=== PATIENT | female | born 1975 | race Caucasian/White ===

== ENCOUNTER 2020-08-13 18:08 | Emergency (ER) | payer MEDICAID, SELFPAY ==
[2020-08-13 18:12] VITALS: BP 95/61; PULSE 86; RESP 16; TEMP 36.5; O2SAT 98; BMI 28.3
--- NOTE | 2020-08-13 18:37 | XR_ITS ---
EXAMINATION: XR LUMBAR SPINE XR HIP, RIGHT CLINICAL INFORMATION: Back and hip pain status post fall. COMPARISON: CT abdomen and pelvis 04/22/2019. TECHNIQUE: 3 views lumbar spine, single view pelvis with 2 additional views right hip. FINDINGS: LUMBAR SPINE: Some mild spondylitic changes are present with some endplate osteophytes most marked at the superior endplate of L5. There is mild disc space narrowing at L4-L5. No acute fractures are seen. PELVIS AND RIGHT HIP: Degenerative changes are present in both hips with supra-acetabular sclerosis and some mild osteophyte formation. No fractures are seen. Appearances were identical at the time of the prior CT scan in 2019. XR/XR lumbar spine 2-3V IMPRESSION: No evidence of a traumatic injury. Mild degenerative changes as described above.
--- NOTE | 2020-08-13 18:37 | XR_ITS ---
EXAMINATION: XR LUMBAR SPINE XR HIP, RIGHT CLINICAL INFORMATION: Back and hip pain status post fall. COMPARISON: CT abdomen and pelvis 04/22/2019. TECHNIQUE: 3 views lumbar spine, single view pelvis with 2 additional views right hip. FINDINGS: LUMBAR SPINE: Some mild spondylitic changes are present with some endplate osteophytes most marked at the superior endplate of L5. There is mild disc space narrowing at L4-L5. No acute fractures are seen. PELVIS AND RIGHT HIP: Degenerative changes are present in both hips with supra-acetabular sclerosis and some mild osteophyte formation. No fractures are seen. Appearances were identical at the time of the prior CT scan in 2019. XR/XR hip RT w PEL1V IMPRESSION: No evidence of a traumatic injury. Mild degenerative changes as described above.
--- NOTE | 2020-08-13 18:52 | ED.FALL ---
HPI - Fall General Chief Complaint: Fall Stated Complaint: FALL Time Seen by Provider: 08/13/20 18:37 Source: patient Mode of arrival: ambulatory Limitations: no limitations History of Present Illness HPI Narrative: 45 y/o female presenting with right hip pain and low back pain s/p fall 1 week ago. It has been worsening. She has been using heat but not taking any medications because she allergic to tylenol and motrin. She reports tripping over her bunny and falling backward onto her buttock and right hip. She has had pain since with difficulty ambulating. No reports the pain radiates down to her feet that started today. She has episodes of tingling when the pain is severe. She denies weakness and incontinence. MD complaint: fall Onset (ago): week(s) (1) Fall from: standing Fall witnessed: no Place fall occurred: home Loss of consciousness: none Prolonged down time: no Symptoms prior to fall: none Context: tripped/slipped Location of injury: back and pelvis Location of injury - extremities: right: thigh Severity: moderate Severity scale (1-10): 7 Quality: aching and spasming Associated symptoms (after fall): denies Related Data Previous Rx's Medication Instructions Recorded cyclobenzaprine 10 mg PO TID PRN #10 tab 08/13/20 lidocaine [Lidoderm] 1 patch TOPICAL DAILY #15 ea 08/13/20 oxycodone 5 mg PO Q8H PRN #6 tab 08/13/20 Allergies Allergy/AdvReac Type Severity Reaction Status Date / Time varenicline [From CHANTIX] Allergy Intermediate HIVES Unverified 05/16/20 16:01 aspirin [ASPIRIN] Allergy Unknown UNKNOWN Unverified 05/16/20 16:01 acetaminophen [From Tylenol] Allergy Hives Verified 08/13/20 18:40 gabapentin Allergy Hives Verified 08/13/20 18:40 Review of Systems Review of Systems: Constitutional: No Fever, No Chills Cardiovascular: No Chest Pain, No SOB Respiratory: No Cough, No Sputum Gastrointestinal: No Nausea, No Vomiting, No Diarrhea, No abdominal Pain, Genitourinary: No Dysuria, No Urinary Frequency, No Hematuria Musculoskeletal: + joint pain, + Myalgias Skin: No Skin Lesions, No rash Neuro: No Weakness, No Numbness, No Dizziness, No Headache Psych: No Anxiety/Panic, No Depression Heme/Lymph: No Bruising, No Lymphadenopathy Endocrine: No Polyuria, No Polydipsia [facility] Past Medical History Attestation statement: The following information was validated with the patient. Medical History Anxiety Depression Social History Social History Advance Directives: No Advance Directives Information Provided: Yes Physical Exam Vital Signs: Vital Signs: Last Vital Signs Temp 97.7 F 08/13/20 18:12 Pulse 86 08/13/20 18:12 Resp 16 08/13/20 18:12 BP 95/61 08/13/20 18:12 Pulse Ox 98 08/13/20 18:12 Body Mass Index 28.3 Appearance: Alert. Oriented X3. No acute distress. HEENT: normal inspection CVS: Normal heart rate and rhythm. Pulses normal. Respiratory: No respiratory distress. Skin: Skin warm and dry. Normal skin color. Normal skin turgor. No rashes. Back: no ecchymosis, tenderness of SI joint on the right and soft tissues of low lumbar area, no spinal tenderness Extremities: right lateral hip with tenderness superiorly, no deformity, able to ambulate with limp Neuro: Oriented X 3. No motor deficit. No sensory deficit. Course Course Course Narrative: 45 y/o female presenting with hip and back pain 1 week after a fall. Neurologically intact with tender lateral hip and SI joint. Able to ambulate with limp, steady gait. Will get XR to r/u fracture. Reevaluation(s) Reevaluation #1: XR showed no acute traumatic injuries. Will treat for muscular injury/contusion and have her follow up with PCP. Stable for d/c. Patient agrees with plan. MDM - Fall Differential Diagnosis Differential diagnosis: Likely fracture and compression fracture Critical Care Time Critical Care Time Critical Care Time: No Discharge Plan Discharge Clinical Impression: Contusion Qualifiers: Encounter type: initial encounter Contusion area: hip Laterality: right Qualified Code(s): S70.01XA - Contusion of right hip, initial encounter Patient Disposition: Home, Self-Care Instructions: Hip Contusion (ED) Additional Instructions: Your x-rays today showed no acute injuries. It is likely that your pain is muscular in nature. Use heat several times per day. Take the prescribed medications as needed for pain. Follow up with your doctor this week. You may benefit from Physical Therapy. If you develop new weakness, numbness, tinging or urinary incontinence come back to the ER for further evaluation. Prescriptions: New cyclobenzaprine 10 mg tablet 10 mg PO TID PRN (Reason: muscle spasm) Qty: 10 RF: 0 lidocaine [Lidoderm] 5 % adhesive patch,medicated 1 patch topical DAILY Qty: 15 RF: 0 oxycodone 5 mg tablet 5 mg PO Q8H PRN (Reason: pain) Qty: 6 RF: 0 Stand Alone Forms: Work/School Release
[2020-08-13] MEDS: oxyCODONE HCl Immed Release 5 MG TABLET PO (19:46)
== END 2020-08-13 20:49 | disposition home or self-care (01) ==
PROVIDERS: Emergency Provider Internal Medicine
DX: S70.01XA Contusion of right hip, initial encounter (principal); M25.551 Pain in right hip; W01.10XA Fall on same level from slipping, tripping and stumbling with subsequent striking against unspecified object, initial encounter; Y93.9 Activity, unspecified; Y92.009 Unspecified place in unspecified non-institutional (private) residence as the place of occurrence of the external cause; Y99.9 Unspecified external cause status; Z79.899 Other long term (current) drug therapy
CPT/HCPCS: 72100; 73502; 99283

== ENCOUNTER 2021-02-01 17:43 | Emergency (ER) | payer MEDICAID, SELFPAY ==
--- NOTE | ~2021-02-01 | XR_ITS ---
EXAMINATION: XR HIP, LEFT , AP pelvis CLINICAL INFORMATION: Pain COMPARISON: July 2020 TECHNIQUE: Frontal and lateral views of the hip acquired. , AP pelvis FINDINGS: There is no evidence of acute fracture or dislocation. There are mild degenerative arthritic changes of the hip evident by sclerotic changes of the acetabular roof and narrowing of the joint space. Mild degenerative changes of the symphysis pubis. Mild degenerative changes of the SI joints. Adjacent pubic rami are intact. Surrounding soft tissues are unremarkable. XR/XR hip LT min 2V IMPRESSION: Mild degenerative osteoarthritis. No fracture. .
[2021-02-01 18:09] VITALS: BP 134/78; PULSE 107; RESP 20; O2SAT 97; BMI 31.1
[2021-02-01 18:29] LABS: MANUAL DIFF FLAG NO
[2021-02-01 18:32] LABS: Basophils Percent Auto 0.3 % (0-2); Eosinophils Percent Auto 0.3 % (0-4); Hematocrit 48.3 % (37-47); Hemoglobin 15.5 g/dl (12.0-16.0); Imm Gran Abs Auto 0.02 X10*3/uL (0.00-0.03); Imm Gran Pct Auto 0.2 % (0.0-0.4); Lymphocytes Absolute Auto 2.4 X10*3/uL (1.2-4.9); Lymphocytes Percent Auto 20.3 % (20-40); Mean Corpuscular HGB Conc 32.1 g/dl (31.0-35.0); Mean Corpuscular Volume 93.4 fL (80-98); Mean Platelet Volume 11.4 fL (9.4-12.3); Monocytes Absolute Auto 0.3 X10*3/uL (0.1-1.2); Monocytes Percent Auto 2.5 % (2-11); Neutrophils Percent Auto 76.4 % (45-73); Platelet Count 192 X10*3/uL (160-400); Red Blood Count 5.17 X10*6/uL (4.20-5.50); Red Cell Distribution Width 12.9 % (11.0-16.0); White Blood Count 11.8 X10*3/uL (4.8-10.8)
[2021-02-01 18:52] LABS: Anion Gap 15 (12-20); Blood Urea Nitrogen 14 mg/dL (9-16); Calcium 9.3 mg/dL (8.4-10.2); Carbon Dioxide 19 mmol/L (22-29); Chloride 111 mmol/L (96-108); Creatinine Clr Calc Pharmacy 91.7; Estimated Glomerular Filt Rate > 60; Glucose Random 107 mg/dL (60-115); Potassium 4.5 mmol/L (3.3-5.1); Sodium 140 mmol/L (135-145)
== END 2021-02-01 21:27 | disposition left against medical advice (07) ==
PROVIDERS: Emergency Provider Emergency Medicine
DX: M25.552 Pain in left hip (principal); R53.1 Weakness
CPT/HCPCS: 36415; 73502; 80048; 85025; 99282

== ENCOUNTER 2021-05-24 12:47 | Emergency (ER) | payer MEDICAID, SELFPAY ==
[2021-05-24 12:50] VITALS: BP 126/67; PULSE 95; RESP 20; TEMP 36.8; O2SAT 97; BMI 25.7
--- NOTE | 2021-05-24 17:08 | ED_ITS ---
HPI - Abdominal Pain General Chief Complaint: Abdominal Pain Stated Complaint: ABD PAIN Time Seen by Provider: 05/24/21 17:08 Source: patient Mode of arrival: ambulatory Limitations: no limitations History of Present Illness HPI narrative: Patient no significant past medical history just returned from [place] complaining of nausea vomiting and lower abdominal pain mostly on the left side for last few hours Related Data Previous Rx's Medication Instructions Recorded cyclobenzaprine 10 mg tablet 10 mg PO TID PRN #10 tab 08/13/20 lidocaine 5 % topical patch 1 patch TOPICAL DAILY #15 ea 08/13/20 (Lidoderm) oxycodone 5 mg tablet 5 mg PO Q8H PRN #6 tab 08/13/20 Allergies Allergy/AdvReac Type Severity Reaction Status Date / Time acetaminophen [From Tylenol] Allergy Intermediate Hives Verified 05/24/21 12:50 aspirin [ASPIRIN] Allergy Intermediate UNKNOWN Verified 05/24/21 12:50 gabapentin Allergy Intermediate Hives Verified 05/24/21 12:50 varenicline [From CHANTIX] Allergy Intermediate HIVES Verified 05/24/21 12:50 lurasidone [From Latuda] Allergy Unknown Verified 05/24/21 12:50 Physical Exam Vital Signs: Vital Signs: Last Vital Signs Temp 98.3 F 05/24/21 12:50 Pulse 95 05/24/21 12:50 Resp 20 05/24/21 12:50 BP 126/67 05/24/21 12:50 Pulse Ox 97 05/24/21 12:50 Body Mass Index 25.7 Discharge Plan Discharge Prescriptions: No Action cyclobenzaprine 10 mg tablet 10 mg PO TID PRN (Reason: muscle spasm) Qty: 10 RF: 0 lidocaine [Lidoderm] 5 % adhesive patch,medicated 1 patch topical DAILY Qty: 15 RF: 0 oxycodone 5 mg tablet 5 mg PO Q8H PRN (Reason: pain) Qty: 6 RF: 0 PMFSH Past Medical History Medical History Anxiety Depression Surgical History (Updated 05/24/21 @ 12:52 by Ninoska Caballero RN) H/O: hysterectomy Social History Social History Advance Directives: No Advance Directives Information Provided: Yes Patient : No
== END 2021-05-24 18:12 | disposition left against medical advice (07) ==
PROVIDERS: Emergency Provider Emergency Medicine
DX: R10.9 Unspecified abdominal pain (principal)
CPT/HCPCS: 99281; 99282

== ENCOUNTER 2021-06-23 12:51 | Emergency (ER) | payer MEDICAID, SELFPAY ==
--- NOTE | ~2021-06-23 | CT_ITS ---
EXAMINATION: CT HEAD WITHOUT CONTRAST CLINICAL INFORMATION: Left upper and lower extremity weakness. Double vision. COMPARISON: None TECHNIQUE: Contiguous axial imaging was performed from the skull base to vertex without intravenous administration of contrast. This CT examination was performed using dose optimization techniques as appropriate, variously including the following: *Automated exposure control *Adjustment of mA and/or kV according to patient size (this includes techniques or standardized protocols for targeted exams where dose is matched to indication/reason for exam; i.e. extremities or head) *Use of iterative reconstruction technique DLP: 603 mGy-cm FINDINGS: There is no evidence of acute intracranial hemorrhage or territorial infarction. No abnormal mass effect or midline shift is seen. Vasquez to white matter differentiation is well preserved. No extra-axial fluid collections are identified. The ventricles are normal in size. There is no abnormal attenuation within the brain parenchyma. The osseous structures and soft tissues are normal. The mastoid air cells and visualized portions of the paranasal sinuses are well aerated. CT/CT head/brain wo con IMPRESSION: Unremarkable exam.
--- NOTE | ~2021-06-23 | XR_ITS ---
EXAMINATION: XR CHEST CLINICAL INFORMATION: Chest pain COMPARISON: Chest radiographs 09/11/2017, 01/08/2012 TECHNIQUE: 2 views of the chest were obtained. FINDINGS: The lungs are clear. There is no pneumothorax, airspace consolidation, pleural reaction, or effusion. The heart is normal in size. The hilar and mediastinal contours are normal. The costophrenic sulci are clear. Bony structures are unremarkable. XR/XR chest 2V IMPRESSION: Unremarkable examination.
--- NOTE | 2021-06-23 12:57 | ECG_ITS ---
Test Reason : cp Blood Pressure : / mmHG Vent. Rate : 063 BPM Atrial Rate : 063 BPM P-R Int : 128 ms QRS Dur : 076 ms QT Int : 400 ms P-R-T Axes : 041 040 062 degrees QTc Int : 409 ms Normal sinus rhythm Normal ECG No previous ECGs available Referred By: Generic ED Physician Electronically Signed By:JENN HUNT MD
[2021-06-23 13:27] VITALS: BP 101/46; PULSE 62; RESP 18; TEMP 36.1; O2SAT 99; BMI 23.8
[2021-06-23 16:14] VITALS: BP 106/64; PULSE 57
[2021-06-23 16:16] VITALS: BP 98/65; PULSE 68
--- NOTE | 2021-06-23 16:29 | ED.CHESTPAIN ---
HPI - Chest Pain General Chief Complaint: Chest Pain Stated Complaint: chest pain hands numbness Time Seen by Provider: 06/23/21 15:51 Source: patient Mode of arrival: ambulatory History of Present Illness HPI narrative: 45-year-old female with a past medical history anxiety, depression, presenting to the ED complaining of chest pain and left arm/hand numbness/weakness since 3:00 a.m. Admits chest pain has resolved however decreased mobility to left hand is persistent, was seen PCP ABSTRACTOR and sent to ED for evaluation and concern of CVA. Patient also reports blurry vision and feeling off balance. Denies headache, lightheadedness, CP at present, SOB, abdominal pain, nausea/vomiting. Does not take anticoagulation. Denies ETOH/drug use MD complaint: chest pain Related Data Home Medications Medication Instructions Recorded Confirmed acetaminophen 160 mg chewable 640 mg PO Q4H PRN 06/23/21 06/23/21 tablet aripiprazole 20 mg tablet 20 mg PO DAILY 06/23/21 06/23/21 clonazepam 1 mg tablet 1 mg PO BID PRN 06/23/21 06/23/21 dextroamphetamine-amphetamine 30 30 mg PO DAILY 06/23/21 06/23/21 mg tablet diphenhydramine HCl 12.5 mg 25 mg PO TID PRN 06/23/21 06/23/21 chewable tablet lisdexamfetamine 60 mg capsule 60 mg PO DAILY 06/23/21 06/23/21 (Vyvanse) topiramate 200 mg tablet 200 mg PO BEDTIME 06/23/21 06/23/21 venlafaxine 75 mg capsule,extended 75 cap PO BEDTIME 06/23/21 06/23/21 release 24 hr Allergies Allergy/AdvReac Type Severity Reaction Status Date / Time acetaminophen [From Tylenol] Allergy Intermediate Hives Verified 05/24/21 12:50 aspirin [ASPIRIN] Allergy Intermediate UNKNOWN Verified 05/24/21 12:50 gabapentin Allergy Intermediate Hives Verified 05/24/21 12:50 varenicline [From CHANTIX] Allergy Intermediate HIVES Verified 05/24/21 12:50 lurasidone [From Latuda] Allergy Unknown Verified 05/24/21 12:50 Review of Systems Review of Systems: Constitutional: No Fever, No Chills, No Fatigue, No Malaise ENT/Mouth: No Ear Pain, No Nasal Congestion, No sore throat, No Swallowing Difficulty Eyes: No Eye Pain, No Swelling, No Redness, No Discharge, + Vision Changes Cardiovascular: + Chest Pain (resolved), No SOB, No Palpitations Respiratory: No Cough, No Dyspnea Gastrointestinal: No Nausea, No Vomiting, No Diarrhea, No Constipation, No Abdominal pain Genitourinary: No Dysuria, No Urinary Frequency, No Hematuria,No Flank Pain Musculoskeletal: No joint pain, No Myalgias, No Joint Swelling Skin: No Skin Lesions, No rash Neuro: + Weakness, + Numbness, + Paresthesias, No Loss of Consciousness, + feeling off balance, No Headache Yes all other systems are reviewed and are negative Neurologic: Denies Sensory deficit (Neuro) [facility] Past Medical History Attestation statement: The following information was validated with the patient. Medical History (Updated 06/23/21 @ 17:35 by CALOS Hunt) Anxiety Depression Surgical History (Updated 05/24/21 @ 12:52 by Ninoska Caballero RN) H/O: hysterectomy Social History Social History Advance Directives: No Advance Directives Information Provided: Yes Physical Exam Vital Signs: Vital Signs: Last Vital Signs Temp 97 F 06/23/21 13:27 Pulse 68 06/23/21 16:16 Resp 18 06/23/21 13:27 BP 98/65 06/23/21 16:16 Pulse Ox 99 06/23/21 13:27 Body Mass Index 23.8 Const: General: cooperative, healthy appearing and no acute distress Orientation/consciousness: patient oriented x3 Limitations: no limitations HENMT: Head: Yes normal to inspection and Yes atraumatic Ears: hearing grossly normal bilaterally General nose exam: Normal external nose present Face and sinus: Yes normal facial exam Eyes: General: appearance normal, both eyes and all related structures Pupils: Equal, round and reactive pupils present EOM: EOMs intact bilaterally Neck: Neck: Yes normal visual inspection, Yes no lymphadenopathy and Yes no meningeal signs Resp: Effort & Inspection: normal respiratory effort Auscultation: clear to auscultation bilaterally, no crackles, no rales, no rhonchi and no wheezes Cardio: Rate: regular rate Heart sounds: S1 normal heart sound present and S2 normal heart sound present GI: Inspection: Yes normal to inspection Palpation (GI): Soft to palpation, nontender, no guarding and not rigid Skin: Rashes: no rashes Wounds: no wounds Neuro: Other: Slight decreased strength to LLE Left wrist & hand with decreased strength, decreased flexion and extension. Sensation intact to light touch. Distal pulses intact Strength intact to forearm/elbow and arm on left side General: patient oriented x3, gait normal and no meningeal signs Cranial nerves: Yes Equal, round and reactive pupils present Gait exam (Neuro): Normal gait present Sensory Exam: No Sensory deficit (Neuro) Coordination: [id number] test normal Romberg Test: Negative Extrem: General: Yes normal to inspection Course Course Course Narrative: -1730-- UA negative XR chest 2V IMPRESSION: Unremarkable examination. CT head/brain wo con IMPRESSION: Unremarkable exam. -results discussed with patient, recommended admission for MRI tomorrow. Patient refusing admission for further workup secondary to anxiety, discussed risks of leaving, including permanent disability, paralysis, and . patient is A&Ox3, competent to make her own decisions and will sign out AMA., will follow up with PCP for MRI -1800--labs drawn however patient would like to leave AMA prior to results MDM - Chest Pain MDM Narrative Medical decision making narrative: 45-year-old female with a past medical history anxiety, depression, presenting to the ED complaining of chest pain and left arm/hand numbness/weakness since 3:00 a.m. on exam vital signs stable, NAD/nontoxic appearing, physical exam as above with noted left hand/wrist weakness, and mild LLE weakness. Ambulating with steady gait. Concern for CVA vs compressive neuropathy. Lower concern for SAH/ICH. Rule out metabolic etiology and ACS Plan: EKG, labs, CXR head CT Medical Records Data Attestation: I reviewed the patient's medical records. Lab Data Attestation: I reviewed the patient's lab results. Result diagrams: 06/23/21 16:26 06/23/21 16:26 Labs: Lab Results 06/23/21 06/23/21 06/23/21 Range/Units 16:17 16:17 16:19 WBC (4.8-10.8) X10*3/uL RBC (4.20-5.50) X10*6/uL Hgb (12.0-16.0) g/dl Hct (37-47) % MCV (80-98) fL MCH (27.0-33.0) pg MCHC (31.0-35.0) g/dl RDW (11.0-16.0) % Plt Count (160-400) X10*3/uL MPV (9.4-12.3) fL Immature Gran % (Auto) (0.0-0.4) % Neut % (Auto) (45-73) % Lymph % (Auto) (20-40) % [place] % (Auto) (2-11) % Eos % (Auto) (0-4) % Baso % (Auto) (0-2) % Lymph # (Auto) (1.2-4.9) X10*3/uL [place] # (Auto) (0.1-1.2) X10*3/uL Eos # (Auto) (0.0-0.4) X10*3/uL Baso # (Auto) (0.0-0.2) X10*3/uL Abs Immat Gran (auto) (0.00-0.03) X10*3/uL Absolute Neuts (auto) (2.0-8.3) X10*3/uL Absolute Nucleated RBC (0.0-0.012) X10*3/uL Nucleated RBC % (auto) (0.0-0.2) /100WBC Urine Color YELLOW Urine Appearance CLEAR Urine pH 6.5 (5.0-8.0) Ur Specific [place] <= 1.005 (1.005-1.025) Urine Protein NEG (NEG-TRACE) MG/DL Urine Glucose (UA) NEG (NEG) MG/DL Urine Ketones NEG (NEG) MG/DL Urine Blood NEG (NEG) Urine Nitrite NEG (NEG) Ur Leukocyte Esterase NEG (NEG) Urine Test NEGATIVE (NEGATIVE) COVID-19 ([facility]) Negative (Negative) COVID-19 Clin Com See Note 06/23/21 Range/Units 16:26 WBC 7.3 (4.8-10.8) X10*3/uL RBC 4.63 (4.20-5.50) X10*6/uL Hgb 13.6 (12.0-16.0) g/dl Hct 42.8 (37-47) % MCV 92.4 (80-98) fL MCH 29.4 (27.0-33.0) pg MCHC 31.8 (31.0-35.0) g/dl RDW 12.8 (11.0-16.0) % Plt Count 205 (160-400) X10*3/uL MPV 11.1 (9.4-12.3) fL Immature Gran % (Auto) 0.3 (0.0-0.4) % Neut % (Auto) 54.6 (45-73) % Lymph % (Auto) 38.1 (20-40) % [place] % (Auto) 4.4 (2-11) % Eos % (Auto) 2.2 (0-4) % Baso % (Auto) 0.4 (0-2) % Lymph # (Auto) 2.8 (1.2-4.9) X10*3/uL [place] # (Auto) 0.3 (0.1-1.2) X10*3/uL Eos # (Auto) 0.2 (0.0-0.4) X10*3/uL Baso # (Auto) 0.0 (0.0-0.2) X10*3/uL Abs Immat Gran (auto) 0.02 (0.00-0.03) X10*3/uL Absolute Neuts (auto) 4.0 (2.0-8.3) X10*3/uL Absolute Nucleated RBC 0.000 (0.0-0.012) X10*3/uL Nucleated RBC % (auto) 0.0 (0.0-0.2) /100WBC Urine Color Urine Appearance Urine pH (5.0-8.0) Ur Specific [place] (1.005-1.025) Urine Protein (NEG-TRACE) MG/DL Urine Glucose (UA) (NEG) MG/DL Urine Ketones (NEG) MG/DL Urine Blood (NEG) Urine Nitrite (NEG) Ur Leukocyte Esterase (NEG) Urine Test (NEGATIVE) COVID-19 ([facility]) (Negative) COVID-19 Clin Com Discharge Plan Discharge Clinical Impression: Left hand weakness, Chest pain Patient Disposition: Left Against Medical Advice Instructions: Chest Pain (ED), Stroke (DC) Additional Instructions: It is possible you had a stroke. It is also possible you could be having issues with her heart You are signing out against medical advice meaning or taking the risk of , paralysis, and permanent disability upon leaving today You are always welcome to return to the emergency department It is also possible your having a compressive neuropathy It is very important that you follow-up with her primary care doctor as soon as possible You need an MRI to determine whether you definitely had a stroke or not If you develop worsening symptoms, new symptoms, weakness, numbness, shortness breath, or chest pain return to the ED immediately Prescriptions: No Action venlafaxine 75 mg capsule,extended release 24hr 75 cap PO BEDTIME RF: 0 clonazepam 1 mg tablet 1 mg PO BID PRN (Reason: Anxiety) RF: 0 dextroamphetamine-amphetamine 30 mg tablet 30 mg PO DAILY RF: 0 topiramate 200 mg tablet 200 mg PO BEDTIME RF: 0 aripiprazole 20 mg tablet 20 mg PO DAILY RF: 0 Vyvanse 60 mg capsule 60 mg PO DAILY RF: 0 acetaminophen [Acetaminophen Jr] 160 mg Tablet,Chewable 640 mg PO Q4H PRN (Reason: Pain) RF: 0 diphenhydramine HCl 12.5 mg Tablet,Chewable 25 mg PO TID PRN (Reason: Itching) RF: 0 Referrals: Physician,Unknown J [Primary Care Provider] - 1 day
[2021-06-23 16:33] LABS: Appearance Urine CLEAR; Color Urine YELLOW; Glucose Urine UA NEG (NEG); Leukocyte Esterase Urine NEG (NEG); Nitrite Urine NEG (NEG); PH 6.5 (5.0-8.0); Specific Gravity - Urine <= 1.005 (1.005-1.025); Urine Blood NEG (NEG); Urine Ketones NEG (NEG); Urine Protein NEG (NEG-TRACE)
[2021-06-23 16:35] LABS: UPreg QC Valid YES; Urine Pregnancy NEGATIVE (NEGATIVE)
[2021-06-23 16:48] LABS: COVID-19 Test Negative (Negative); IDNOW Serial# 9DD0AD1C
--- NOTE | 2021-06-23 16:56 | PHA.MEDREC ---
Pharmacy Consult ? Medication Reconciliation Pharmacy has completed the medication reconciliation. Patient reports she stop taking prazosin because they worsen her nightmares at night. Patient's family reports that patient can only have Children's Tylenol and Children's Benadryl (the chewable tablets) because the regular ones upset her stomach. She reports that she has been getting itchy after eating most foods. Yas Berger, PharmD
--- NOTE | 2021-06-23 17:00 | PC.NURSE ---
Unsuccessful PIV attempt by this RN, unsuccessful butterfly stick attempt x 2 per Nathan EDT. Phlebotomy requested to attempt
[2021-06-23 17:52] LABS: MANUAL DIFF FLAG NO
[2021-06-23 17:54] LABS: Basophils Percent Auto 0.4 % (0-2); Eosinophils Absolute Auto 0.2 X10*3/uL (0.0-0.4); Eosinophils Percent Auto 2.2 % (0-4); Hematocrit 42.8 % (37-47); Hemoglobin 13.6 g/dl (12.0-16.0); Imm Gran Abs Auto 0.02 X10*3/uL (0.00-0.03); Imm Gran Pct Auto 0.3 % (0.0-0.4); Lymphocytes Absolute Auto 2.8 X10*3/uL (1.2-4.9); Lymphocytes Percent Auto 38.1 % (20-40); Mean Corpuscular HGB Conc 31.8 g/dl (31.0-35.0); Mean Corpuscular Hemoglobin 29.4 pg (27.0-33.0); Mean Corpuscular Volume 92.4 fL (80-98); Mean Platelet Volume 11.1 fL (9.4-12.3); Monocytes Absolute Auto 0.3 X10*3/uL (0.1-1.2); Monocytes Percent Auto 4.4 % (2-11); Neutrophils Percent Auto 54.6 % (45-73); Platelet Count 205 X10*3/uL (160-400); Red Blood Count 4.63 X10*6/uL (4.20-5.50); Red Cell Distribution Width 12.8 % (11.0-16.0); White Blood Count 7.3 X10*3/uL (4.8-10.8)
--- NOTE | 2021-06-23 18:09 | PC.NURSE ---
Pt discharged against medical advice, able to verbalize understanding of risks associated w/ leaving, also declining to wait for lab results. Return precautions reviewed, reiterated that pt should not hesitate to return if condition changes or worsens. PIV removed, pt ambulatory w/ steady gait out of dept and in NAD at time of dc
[2021-06-23 18:18] LABS: Troponin-I High Sensitivity < 3.5 ng/L (<3.5-17.0)
[2021-06-23 18:26] LABS: Alanine Aminotransferase 10 U/L (0-31); Albumin Level 3.9 g/dL (3.5-5.0); Alkaline Phosphatase 71 U/L (39-117); Anion Gap 9 (12-20); Aspartate Amino Transferase 12 U/L (5-31); Bilirubin Direct < 0.2 mg/dL (0.0-0.5); Bilirubin Total 0.2 mg/dL (0.0-1.0); Blood Urea Nitrogen 11 mg/dL (9-16); Calcium 8.9 mg/dL (8.4-10.2); Carbon Dioxide 27 mmol/L (22-29); Chloride 107 mmol/L (96-108); Creatinine Clr Calc Pharmacy 80.6; Estimated Glomerular Filt Rate > 60; Glucose Random 109 mg/dL (60-115); Potassium 3.9 mmol/L (3.3-5.1); Sodium 139 mmol/L (135-145); Total Protein 6.1 g/dL (6.5-8.0)
== END 2021-06-23 18:20 | disposition left against medical advice (07) ==
PROVIDERS: Physician Assistant; Emergency Provider Internal Medicine
DX: R07.9 Chest pain, unspecified (principal); R53.1 Weakness; F41.9 Anxiety disorder, unspecified; F32.9 Major depressive disorder, single episode, unspecified; Z79.899 Other long term (current) drug therapy; Z20.822 Contact with and (suspected) exposure to COVID-19
CPT/HCPCS: 36415; 70450; 71046; 80048; 80076; 81003; 81025; 83735; 84484; 85025; 87635; 93005; 99283; 99284

== ENCOUNTER 2022-08-26 12:55 | Emergency (ER) | payer MEDICAID, SELFPAY ==
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
[2022-08-26 13:15] VITALS: BP 114/67; PULSE 85; RESP 16; TEMP 36.6; O2SAT 96; BMI 25.7
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
== END 2022-08-26 15:27 | disposition home or self-care (01) ==
PROVIDERS: Emergency Provider Student in an Organized Health Care Education/Training Program
DX: S70.02XA Contusion of left hip, initial encounter (principal); M62.838 Other muscle spasm; M25.562 Pain in left knee; Y29.XXXA Contact with blunt object, undetermined intent, initial encounter; Y93.9 Activity, unspecified; Y92.9 Unspecified place or not applicable; Y99.9 Unspecified external cause status
CPT/HCPCS: 73502; 73564; 99282; 99283

== ENCOUNTER 2022-10-01 17:44 | Emergency (ER) | payer MEDICAID, SELFPAY ==
--- NOTE | ~2022-10-01 | CT_ITS ---
EXAMINATION: CT HIP WITHOUT CONTRAST, LEFT CLINICAL INFORMATION: Evaluate for fracture, fall, pain. COMPARISON: Radiograph of the left hip 08/26/2022. TECHNIQUE: Multidetector volumetric imaging was performed of the left hip without IV contrast. Sagittal and coronal reformatted images were obtained. This CT examination was performed using dose optimization techniques as appropriate, variously including the following: *Automated exposure control *Adjustment of mA and/or kV according to patient size (this includes techniques or standardized protocols for targeted exams where dose is matched to indication/reason for exam; i.e. extremities or head) *Use of iterative reconstruction technique DLP: 228 mGy-cm FINDINGS: No evidence of acute fractures or subluxation. Mild to moderate superolateral joint space narrowing of the left hip with associated subcortical sclerosis and marginal osteophytes, suggesting degenerative osteoarthritis. No evidence of erosions. No chondrocalcinosis. No aggressive appearing osseous lesions. No significant soft tissue abnormality. Mild colonic diverticulosis without pericolonic inflammatory changes. CT/CT hip LT wo IV con IMPRESSION: 1. No acute fractures or malalignment. 2. 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
[2022-10-01 17:53] VITALS: BP 111/76; BP 116/63; PULSE 62; PULSE 81; RESP 16; TEMP 36.9; O2SAT 97; O2SAT 98; BMI 25.0
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
--- NOTE | 2022-10-01 18:25 | MHC.EDTECH ---
I pct conducted a bladder scan on patient but was unable to print outcome do to printer on bladder scanner not working
[2022-10-01] MEDS: Morphine Sulfate 2 MG/ML CARTRIDGE IM (21:13)
[2022-10-01 21:15] VITALS: BP 98/62; PULSE 70; RESP 16; O2SAT 96
== END 2022-10-01 21:19 | disposition home or self-care (01) ==
PROVIDERS: Emergency Provider Emergency Medicine
DX: S70.02XA Contusion of left hip, initial encounter (principal); W06.XXXA Fall from bed, initial encounter; Y93.84 Activity, sleeping; Y92.032 Bedroom in apartment as the place of occurrence of the external cause; Y99.9 Unspecified external cause status
CPT/HCPCS: 51798; 73700; 96372; 99284; J2270

== ENCOUNTER 2022-10-25 21:47 | Emergency (ER) | payer MEDICAID, SELFPAY ==
--- NOTE | ~2022-10-25 | CT_ITS ---
EXAMINATION: CT ABDOMEN AND PELVIS WITHOUT CONTRAST CLINICAL INFORMATION: Left flank pain COMPARISON: 04/22/2019 TECHNIQUE: Multidetector volumetric imaging was performed from the superior aspect of the liver through the pubic symphysis. Sagittal and coronal reformatted images were obtained on the technologist's workstation. This CT examination was performed using dose optimization techniques as appropriate, variously including the following: *Automated exposure control *Adjustment of mA and/or kV according to patient size (this includes techniques or standardized protocols for targeted exams where dose is matched to indication/reason for exam; i.e. extremities or head) *Use of iterative reconstruction technique DLP: 589 mGy-cm FINDINGS: LUNG BASES: The visualized lung bases are unremarkable. LIVER, GALLBLADDER, AND BILIARY TREE: The liver is normal in size, shape, and attenuation. No focal hepatic lesion or biliary ductal dilatation is present. Gallbladder appears relatively contracted. PANCREAS: Unremarkable. SPLEEN: Borderline enlarged. ADRENAL GLANDS: Unremarkable. KIDNEYS AND URETERS: The kidneys are normal in size, shape, and attenuation. No hydronephrosis, hydroureter, or calculi seen. No perinephric stranding. BLADDER: Unremarkable. GASTROINTESTINAL TRACT: No evidence of bowel obstruction or significant wall thickening. The appendix is unremarkable. No free fluid or free air is seen. ABDOMINAL WALL: No significant hernia is appreciated. LYMPH NODES: Normal. VASCULAR: Scattered atherosclerotic calcifications. PELVIC VISCERA: Patient is status post hysterectomy. OSSEOUS STRUCTURES: Degenerative disc disease at L4-L5. CT/CT abdomen pelvis wo IV con IMPRESSION: No acute findings identified in the abdomen/pelvis. Borderline splenomegaly.
[2022-10-25 21:52] VITALS: BP 118/44; BP 162/90; PULSE 111; PULSE 88; RESP 22; TEMP 36.9; O2SAT 96; O2SAT 98; BMI 28.3
[2022-10-25 22:24] LABS: MANUAL DIFF FLAG NO
[2022-10-25 22:26] LABS: Basophils Absolute Auto 0.1 X10*3/uL (0.0-0.2); Basophils Percent Auto 0.4 % (0-2); Eosinophils Absolute Auto 0.2 X10*3/uL (0.0-0.4); Eosinophils Percent Auto 1.3 % (0-4); Hemoglobin 15.2 g/dl (12.0-16.0); Imm Gran Abs Auto 0.09 X10*3/uL (0.00-0.03); Imm Gran Pct Auto 0.6 % (0.0-0.4); Lymphocytes Absolute Auto 3.9 X10*3/uL (1.2-4.9); Lymphocytes Percent Auto 25.4 % (20-40); Mean Corpuscular HGB Conc 33.8 g/dl (31.0-35.0); Mean Corpuscular Hemoglobin 29.9 pg (27.0-33.0); Mean Corpuscular Volume 88.4 fL (80.0-98.0); Mean Platelet Volume 10.9 fL (9.4-12.3); Monocytes Absolute Auto 0.9 X10*3/uL (0.1-1.2); Monocytes Percent Auto 5.7 % (2-11); Neutrophils Absolute Auto 10.3 x10*3/uL (2.0-8.3); Neutrophils Percent Auto 66.6 % (45-73); Platelet Count 272 X10*3/uL (160-400); Red Blood Count 5.09 X10*6/uL (4.20-5.50); Red Cell Distribution Width 12.7 % (11.0-16.0); White Blood Count 15.5 X10*3/uL (4.8-10.8)
[2022-10-25] MEDS: 0.9 % Sodium Chloride 1,000 ML 999 ML IV (22:49)
[2022-10-25 22:57] LABS: Appearance Urine Turbid; Color Urine Dark Yellow; Glucose Urine UA Negative (Negative); Leukocyte Esterase Urine Large (3+) (Negative); Nitrite Urine Negative (Negative); PH 6.5 (5.0-9.0); Specific Gravity - Urine >= 1.030 (1.005-1.025); UMIC TRIGGER UACC YES; Urine Blood Small (1+) (Negative); Urine Ketones Negative (Negative); Urine Protein 100 (2+) mg/dL (Neg-Trace)
--- NOTE | 2022-10-25 23:01 | PC.NURSE ---
pt resting on stretcher, tearful and agitated. Pt was able to provide urine sample and IV was established in right wrist. Awaiting CT imaging at this time
[2022-10-25 23:02] VITALS: PULSE 99; RESP 20; O2SAT 94
[2022-10-25 23:02] LABS: Bacteria Urine 4+ (None Seen); Hyaline Casts Urine 0-2 /LPF (0-2); RBC Urine >20 /HPF (0-2); Squamous Epithelial Cell Urine >20 /HPF (0-2); UACC Culture Trigger YES; WBC Urine >50 /HPF (0-5)
--- NOTE | 2022-10-25 23:03 | ED_ITS ---
HPI - General Adult General Chief complaint: General Medical Stated complaint: Lower Back Pain Radiates to Flank Time Seen by Provider: 10/25/22 22:15 Source: patient Mode of arrival: EMS History of Present Illness HPI narrative: 47-year-old female without significant past medical history but does have a history of renal colic presents with transient left flank pain yesterday and then this evening had acute onset of left flank pain that radiates into the front with episodes of nausea and vomiting as well as chills. She denies any fevers and denies any urinary pain/burning/frequency. Related Data Home Medications Medication Instructions Recorded Confirmed acetaminophen 160 mg chewable 640 mg PO Q4H PRN Pain 06/23/21 06/23/21 tablet aripiprazole 20 mg tablet 20 mg PO DAILY 06/23/21 06/23/21 clonazepam 1 mg tablet 1 mg PO BID PRN Anxiety 06/23/21 06/23/21 dextroamphetamine-amphetamine 30 30 mg PO DAILY 06/23/21 06/23/21 mg tablet diphenhydramine HCl 12.5 mg 25 mg PO TID PRN Itching 06/23/21 06/23/21 chewable tablet lisdexamfetamine 60 mg capsule 60 mg PO DAILY 06/23/21 06/23/21 (Vyvanse) topiramate 200 mg tablet 200 mg PO BEDTIME 06/23/21 06/23/21 venlafaxine 75 mg capsule,extended 75 cap PO BEDTIME 06/23/21 06/23/21 release 24 hr Previous Rx's Medication Instructions Recorded cyclobenzaprine 5 mg tablet 5 mg PO TID PRN muscle spasm 7 08/26/22 days #21 tabs tramadol 50 mg tablet 50 mg PO BID PRN pain #6 tabs 10/01/22 cefixime 400 mg capsule 400 mg PO DAILY 7 days #7 caps 10/26/22 Allergies Allergy/AdvReac Type Severity Reaction Status Date / Time acetaminophen [From Tylenol] Allergy Intermediate Hives Verified 08/26/22 13:19 aspirin [ASPIRIN] Allergy Intermediate UNKNOWN Verified 08/26/22 13:19 gabapentin Allergy Intermediate Hives Verified 08/26/22 13:19 varenicline [From CHANTIX] Allergy Intermediate HIVES Verified 08/26/22 13:19 ibuprofen Allergy Anaphylaxis Verified 10/01/22 17:58 lurasidone [From Latuda] Allergy Unknown Verified 08/26/22 13:19 Review of Systems Review of Systems: Pertinent positives and negatives as stated in [facility] Past Medical History Source: nursing notes reviewed Medical History Anxiety Depression Surgical History H/O: hysterectomy Social History Social History Advance Directives: No Advance Directives Information Provided: Yes Patient : No Physical Exam ED Vital Signs: Vital Signs - 24 hr 10/25/22 21:52 10/25/22 23:02 10/25/22 23:17 Temperature 98.4 F Pulse Rate 111 H 99 95 Respiratory Rate 22 H 20 13 Blood Pressure 118/44 L 113/63 Pulse Oximetry 96 94 93 Oxygen Delivery Method Room Air Room Air Room Air 10/25/22 23:25 Temperature 98.2 F Pulse Rate 107 H Respiratory Rate 18 Blood Pressure 113/63 Pulse Oximetry 98 Oxygen Delivery Method Room Air BMI result Body Mass Index 28.3 VITAL SIGNS: Reviewed. GENERAL: Well developed, well nourished, in moderate distress. HEAD: Normocephalic/atraumatic EYES: PERRLA, EOMI LUNGS: Normal breath sounds. No adventitious sounds or accessory muscle use. SpO2<96> CARDIOVASCULAR: Regular rate and rhythm without noted murmurs ABDOMEN: Soft, left flank pain, non-distended with bowel sounds. MUSCULOSKELETAL: No tenderness, deformities, or effusions noted on gross inspection. EXTREMITIES: No cyanosis, clubbing or edema. SKIN: Inspection of the skin reveals no rashes NEUROLOGIC: Alert and oriented x 4. Strength and sensation to light touch were grossly intact x 4. Medications Administered Discontinued Medications Generic Name Dose Route Start Last Admin Trade Name Freq PRN Reason Stop Dose Admin Diphenhydramine HCl 25 mg 10/25/22 23:38 10/25/22 23:55 Diphenhydramine Hcl 25 Mg Capsule PO 10/25/22 23:39 25 mg ONCE ONE Administration Fentanyl 25 mcg 10/25/22 23:01 10/25/22 23:11 Fentanyl Citrate/Pf 100 Mcg/2 Ml Vial IVPUSH 10/25/22 23:02 25 mcg ONCE ONE Administration Protocol Sodium Chloride 1,000 mls @ 999 mls/hr 10/25/22 22:45 10/25/22 23:59 Ns IV 10/25/22 23:45 Infused .Q1H1M ROSEANN Infusion Ondansetron HCl 4 mg 10/25/22 23:02 10/25/22 23:11 Ondansetron Hcl 4 Mg/2 Ml Vial IVPUSH 10/25/22 23:03 4 mg ONCE ONE Administration Medical Decision Making Medical Decision Making MDM Narrative: 47-year-old female with history and clinical presentation of pyelonephritis, renal colic, but lower clinical suspicion for diverticulitis or SBO. On review of all investigations my interpretation is that patient has an acute episode of pyelonephritis. She will receive initial antibiotics here and on re-evaluation she is feeling much better after having received the IV fluids/antiemetics/pain medications as well as antibiotics. She is otherwise discharged home on remaining course of antibiotics. Differential Diagnosis Differential Diagnoses: The differential diagnosis associated with the presentation includes Please see the discussion above Lab Data [facility] Lab Attestation statement: I reviewed the patient's lab results. Please see the discussion above 10/25/22 22:21 10/25/22 22:21 Labs: Lab Results 10/25/22 10/25/22 10/25/22 Range/Units 22:21 22:21 22:51 WBC 15.5 H (4.8-10.8) X10*3/uL RBC 5.09 (4.20-5.50) X10*6/uL Hgb 15.2 (12.0-16.0) g/dl Hct 45.0 (37.0-47.0) % MCV 88.4 (80.0-98.0) fL MCH 29.9 (27.0-33.0) pg MCHC 33.8 (31.0-35.0) g/dl RDW 12.7 (11.0-16.0) % Plt Count 272 (160-400) X10*3/uL MPV 10.9 (9.4-12.3) fL Immature Gran % (Auto) 0.6 H (0.0-0.4) % Neut % (Auto) 66.6 (45-73) % Lymph % (Auto) 25.4 (20-40) % Garfield % (Auto) 5.7 (2-11) % Eos % (Auto) 1.3 (0-4) % Baso % (Auto) 0.4 (0-2) % Lymph # (Auto) 3.9 (1.2-4.9) X10*3/uL Garfield # (Auto) 0.9 (0.1-1.2) X10*3/uL Eos # (Auto) 0.2 (0.0-0.4) X10*3/uL Baso # (Auto) 0.1 (0.0-0.2) X10*3/uL Abs Immat Gran (auto) 0.09 H (0.00-0.03) X10*3/uL Absolute Neuts (auto) 10.3 H (2.0-8.3) x10*3/uL Absolute Nucleated RBC 0.000 (0.0-0.012) X10*3/uL Nucleated RBC % (auto) 0.0 (0.0-0.2) /100WBC Sodium 142 (135-145) mmol/L Potassium 4.8 D (3.3-5.1) mmol/L Chloride 100 (96-108) mmol/L Carbon Dioxide 30 H (22-29) mmol/L Anion Gap 17 (12-20) BUN 22 H (9-16) mg/dL Creatinine 0.80 (0.5-1.4) mg/dL Estim Creat Clear Calc 91.1 Estimated GFR > 60 Random Glucose 122 H (60-115) mg/dL Calcium 9.9 D (8.4-10.2) mg/dL Total Bilirubin 0.6 (0.0-1.0) mg/dL Direct Bilirubin < 0.2 (0.0-0.5) mg/dL AST 22 (5-31) U/L ALT 22 (0-31) U/L Alkaline Phosphatase 76 (39-117) U/L Total Protein 7.2 (6.5-8.0) g/dL Albumin 4.4 (3.5-5.0) g/dL Beta HCG, Quant < 2 mIU/mL Urine Color Dark Yellow Urine Appearance Turbid Urine pH 6.5 (5.0-9.0) Ur Specific Bentley >= 1.030 H (1.005-1.025) Urine Protein 100 (2+) H (Neg-Trace) mg/dL Urine Glucose (UA) Negative (Negative) mg/dL Urine Ketones Negative (Negative) mg/dL Urine Blood Small (1+) H (Negative) Urine Nitrite Negative (Negative) Ur Leukocyte Esterase Large (3+) H (Negative) Urine RBC >20 H (0-2) /HPF Urine WBC >50 H (0-5) /HPF Ur Squamous Epith Cells >20 (0-2) /HPF Urine Bacteria 4+ (None Seen) Hyaline Casts 0-2 (0-2) /LPF Radiology Impression Radiologist Impression: My interpretation is in agreement with radiology's impression of the imaging study. External Record Review External record reviewed: Outpatient record Critical Care Time Critical Care Time Critical Care Time: Yes Total Critical Care Time: 30 Attestation: I personally attest to this time spent taking care of the patient. Discharge Plan Discharge Clinical Impression: Pyelonephritis Patient Disposition: Home, Self-Care Instructions: Kidney Infection (ED) Additional Instructions: 1. Please resume all home medications as prescribed. 2. Recommend heating pad to your left flank and completion of entire course of antibiotics as ordered. 3. Increase fluid intake, I have provided a prescription for antinausea medication to help you with this. 4. Follow-up with your primary care provider in the next 2-3 days. Return to the ER for any worsening symptoms. Prescriptions: New cefixime 400 mg capsule 400 mg PO DAILY 7 Days Qty: 7 0RF No Action venlafaxine 75 mg capsule,extended release 24hr 75 cap PO BEDTIME clonazepam 1 mg tablet 1 mg PO BID PRN (Reason: Anxiety) dextroamphetamine-amphetamine 30 mg tablet 30 mg PO DAILY topiramate 200 mg tablet 200 mg PO BEDTIME aripiprazole 20 mg tablet 20 mg PO DAILY Vyvanse 60 mg capsule 60 mg PO DAILY acetaminophen [Acetaminophen Jr] 160 mg Tablet,Chewable 640 mg PO Q4H PRN (Reason: Pain) diphenhydramine HCl 12.5 mg Tablet,Chewable 25 mg PO TID PRN (Reason: Itching) cyclobenzaprine 5 mg tablet 5 mg PO TID PRN (Reason: muscle spasm) 7 Days Qty: 21 0RF tramadol 50 mg tablet 50 mg PO BID PRN (Reason: pain) Qty: 6 0RF
[2022-10-25] MEDS: fentaNYL citrate/PF 100 MCG/2 ML VIAL 25 MCG IVPUSH (23:11)
[2022-10-25] MEDS: ondansetron HCL 4 MG/2 ML VIAL IVPUSH (23:11)
[2022-10-25 23:13] LABS: Alanine Aminotransferase 22 U/L (0-31); Albumin Level 4.4 g/dL (3.5-5.0); Alkaline Phosphatase 76 U/L (39-117); Anion Gap 17 (12-20); Aspartate Amino Transferase 22 U/L (5-31); Bilirubin Direct < 0.2 mg/dL (0.0-0.5); Bilirubin Total 0.6 mg/dL (0.0-1.0); Blood Urea Nitrogen 22 mg/dL (9-16); Calcium 9.9 mg/dL (8.4-10.2); Carbon Dioxide 30 mmol/L (22-29); Chloride 100 mmol/L (96-108); Creatinine Clr Calc Pharmacy 91.1; Estimated Glomerular Filt Rate > 60; Glucose Random 122 mg/dL (60-115); HCG Quantitative < 2 mIU/mL; Potassium 4.8 mmol/L (3.3-5.1); Sodium 142 mmol/L (135-145); Total Protein 7.2 g/dL (6.5-8.0)
[2022-10-25 23:17] VITALS: BP 113/63; PULSE 95; RESP 13; O2SAT 93
[2022-10-25 23:25] VITALS: BP 113/63; PULSE 107; RESP 18; TEMP 36.8; O2SAT 98
[2022-10-25] MEDS: diphenhydrAMINE HCL 25 MG CAPSULE PO (23:55)
--- NOTE | 2022-10-26 00:05 | PC.NURSE ---
Late entry: pt itching quite a bit, MD Cabral aware, Benadryl ordered and administered per MAR
[2022-10-26] MEDS: Amoxicillin/Potassium Clav 875 MG TABLET PO (00:30)
== END 2022-10-26 00:35 | disposition home or self-care (01) ==
PROVIDERS: Emergency Provider Student in an Organized Health Care Education/Training Program
DX: N12 Tubulo-interstitial nephritis, not specified as acute or chronic (principal); M54.50 Low back pain, unspecified; Z79.899 Other long term (current) drug therapy
CPT/HCPCS: 36415; 74176; 80053; 81001; 82248; 84702; 85025; 87086; 96361; 96374; 96375; 99284; J2405; J3010

== ENCOUNTER 2022-10-26 14:31 | Emergency (ER) | payer MEDICAID, SELFPAY ==
[2022-10-26 14:39] VITALS: BP 114/84; BP 141/91; PULSE 82; PULSE 93; RESP 20; TEMP 36.8; O2SAT 95; O2SAT 99; BMI 28.3
[2022-10-26] MEDS: diphenhydrAMINE HCL 50 MG/ML VIAL IM (15:24)
[2022-10-26] MEDS: Metoclopramide HCl 10 MG/2 ML VIAL 5 MG IM (15:25)
[2022-10-26] MEDS: methylPREDNISolone Sod Succ 125 MG/2 ML VIAL 60 MG IM (15:29)
[2022-10-26 15:59] LABS: MANUAL DIFF FLAG NO
[2022-10-26 16:01] LABS: Basophils Absolute Auto 0.1 X10*3/uL (0.0-0.2); Basophils Percent Auto 0.4 % (0-2); Eosinophils Absolute Auto 0.3 X10*3/uL (0.0-0.4); Eosinophils Percent Auto 2.2 % (0-4); Hemoglobin 13.8 g/dl (12.0-16.0); Imm Gran Abs Auto 0.07 X10*3/uL (0.00-0.03); Imm Gran Pct Auto 0.6 % (0.0-0.4); Lymphocytes Absolute Auto 3.4 X10*3/uL (1.2-4.9); Lymphocytes Percent Auto 29.7 % (20-40); Mean Corpuscular HGB Conc 32.9 g/dl (31.0-35.0); Mean Corpuscular Hemoglobin 29.6 pg (27.0-33.0); Mean Corpuscular Volume 89.9 fL (80.0-98.0); Mean Platelet Volume 10.6 fL (9.4-12.3); Monocytes Absolute Auto 0.6 X10*3/uL (0.1-1.2); Monocytes Percent Auto 5.3 % (2-11); Neutrophils Absolute Auto 7.1 x10*3/uL (2.0-8.3); Neutrophils Percent Auto 61.8 % (45-73); Platelet Count 221 X10*3/uL (160-400); Red Blood Count 4.67 X10*6/uL (4.20-5.50); Red Cell Distribution Width 12.7 % (11.0-16.0); White Blood Count 11.5 X10*3/uL (4.8-10.8)
[2022-10-26 16:09] LABS: Appearance Urine Turbid; Color Urine Dark Yellow; Glucose Urine UA Negative (Negative); Leukocyte Esterase Urine Moderate (2+) (Negative); Nitrite Urine Negative (Negative); PH 5.5 (5.0-9.0); Specific Gravity - Urine >= 1.030 (1.005-1.025); UMIC TRIGGER UACC YES; Urine Blood Negative (Negative); Urine Ketones Trace mg/dL (Negative); Urine Protein 30 (1+) mg/dL (Neg-Trace)
[2022-10-26 16:16] LABS: Alanine Aminotransferase 20 U/L (0-31); Alkaline Phosphatase 77 U/L (39-117); Anion Gap 10 (12-20); Aspartate Amino Transferase 16 U/L (5-31); Bilirubin Total 0.4 mg/dL (0.0-1.0); Blood Urea Nitrogen 19 mg/dL (9-16); Carbon Dioxide 29 mmol/L (22-29); Chloride 104 mmol/L (96-108); Creatinine Clr Calc Pharmacy 94.7; Estimated Glomerular Filt Rate > 60; Glucose Random 104 mg/dL (60-115); Magnesium 1.7 mg/dL (1.6-2.6); Potassium 4.4 mmol/L (3.3-5.1); Sodium 139 mmol/L (135-145); Total Protein 6.5 g/dL (6.5-8.0)
[2022-10-26 16:17] LABS: Amphetamine Screen Urine POSITIVE (Not Detect); Barbiturates, Urine Not Detected (Not Detect); Benzodiazepines Screen Urine Not Detected (Not Detect); Cannabinoid Screen Urine POSITIVE (Not Detect); Cocaine Screen Urine POSITIVE (Not Detect); Fentanyl, urine Not Detected (Not Detect); Opiate Screen Urine POSITIVE (Not Detect); Phencyclidine Screen Urine Not Detected (Not Detect)
[2022-10-26 16:39] LABS: Bacteria Urine Trace (None Seen); Squamous Epithelial Cell Urine >20 /HPF (0-2); UACC Culture Trigger YES; WBC Urine >50 /HPF (0-5)
--- NOTE | 2022-10-26 16:43 | ED.ALLEREA ---
HPI - Allergic Reaction General Chief complaint: Abdominal Pain Stated complaint: abd pain Time Seen by Provider: 10/26/22 14:44 Source: patient, family and EMS Mode of arrival: EMS Limitations: no limitations History of Present Illness HPI narrative: 47yoF with a PMHx of substance abuse who was diagnosed with pyelonephritis yesterday on 10/25/2022 a sent home with Cefixime although the pharmacy called me earlier this morning and reported that this prescription will not be covered by her pharmacy therefore we changed it to cefuroxime although when she took the 1st dose of this antibiotic she immediately started vomiting and her whole body became very itchy. She believes she might be having allergic reaction. She reports that she is allergic to penicillins although this was not in our allergy list therefore I updated at this time and also put cephalosporins in there. Patient reports otherwise her abdominal pain in her left flank pain has improved. She is not having any fevers or chills. She denies any other new substances, diarrhea, abnormal vaginal discharge, chest pain or shortness of breath, paresthesias, rashes or any other symptoms complaints or concerns at this time. MD complaint: allergic reaction Onset (ago): hour(s) (Prior to arrival) Exposure: medication (Cefuroxime) Symptoms: itching, nausea and vomiting Severity: moderate Treatment prior to arrival: benadryl Previous Allergic Reaction History: anaphylaxis Related Data Home Medications Medication Instructions Recorded Confirmed acetaminophen 160 mg chewable 640 mg PO Q4H PRN Pain 06/23/21 06/23/21 tablet aripiprazole 20 mg tablet 20 mg PO DAILY 06/23/21 06/23/21 clonazepam 1 mg tablet 1 mg PO BID PRN Anxiety 06/23/21 06/23/21 dextroamphetamine-amphetamine 30 30 mg PO DAILY 06/23/21 06/23/21 mg tablet diphenhydramine HCl 12.5 mg 25 mg PO TID PRN Itching 06/23/21 06/23/21 chewable tablet lisdexamfetamine 60 mg capsule 60 mg PO DAILY 06/23/21 06/23/21 (Vyvanse) topiramate 200 mg tablet 200 mg PO BEDTIME 06/23/21 06/23/21 venlafaxine 75 mg capsule,extended 75 cap PO BEDTIME 06/23/21 06/23/21 release 24 hr Previous Rx's Medication Instructions Recorded cyclobenzaprine 5 mg tablet 5 mg PO TID PRN muscle spasm 7 08/26/22 days #21 tabs tramadol 50 mg tablet 50 mg PO BID PRN pain #6 tabs 10/01/22 cefixime 400 mg capsule 400 mg PO DAILY 7 days #7 caps 10/26/22 diphenhydramine HCl 25 mg tablet 50 mg PO TID PRN allergic reaction 10/26/22 (Benadryl Allergy) #14 tabs levofloxacin 750 mg tablet 750 mg PO DAILY uti 5 days #5 tabs 10/26/22 metoclopramide HCl 10 mg tablet 10 mg PO Q6H PRN nausea and 10/26/22 (Reglan) vomiting #14 tabs ondansetron 4 mg oral soluble film 4 mg PO Q8H PRN nausea and 10/26/22 vomiting #10 ea prednisone 20 mg tablet 40 mg PO DAILY inflammation 5 days 10/26/22 #10 tabs Allergies Allergy/AdvReac Type Severity Reaction Status Date / Time Penicillins Allergy Severe Anaphylaxis Verified 10/26/22 16:58 acetaminophen [From Tylenol] Allergy Intermediate Hives Verified 08/26/22 13:19 aspirin [ASPIRIN] Allergy Intermediate UNKNOWN Verified 08/26/22 13:19 gabapentin Allergy Intermediate Hives Verified 08/26/22 13:19 varenicline [From CHANTIX] Allergy Intermediate HIVES Verified 08/26/22 13:19 ibuprofen Allergy Anaphylaxis Verified 10/01/22 17:58 lurasidone [From Latuda] Allergy Unknown Verified 08/26/22 13:19 cefuroxime Allergy Mild Itching Uncoded 10/26/22 16:58 Review of Systems Review of Systems: Constitutional : No Fever, No Chills , no body aches, no recent illness Head/Face: No facial swelling, No facial redness ENT/Mouth : No oral/throat swelling, No Hoarseness, No Swallowing Difficulty Eyes: No Eye Pain, No Swelling, No Redness Cardiovascular : No Chest Pain, No SOB, No palpitations Respiratory : No Cough, No Sputum, No Wheezing, No Smoke Exposure, No Dyspnea Gastrointestinal : + Nausea, + Vomiting, No Diarrhea, No abdominal Pain Genitourinary : No Dysuria, No Urinary Frequency, No Hematuria Musculoskeletal : No joint pain, No Myalgias, No Joint Swelling Skin : + pruritus, No Skin Lesions, No rash Neuro : No Weakness, No Numbness, No Headache, No dizziness, No tingling Psych : No Anxiety/Panic, No Depression Heme/Lymph: No Bruising, No Lymphadenopathy Endocrine : No Polyuria, No Polydipsia Denies changes in lotions or detergents. Denies drainage from rash. Denies any recent sick contacts or recent travel. + new medications for pyelonephritis prescribed yesterday and started today Yes all other systems are reviewed and are negative PMFSH Past Medical History Attestation statement: The following information was validated with the patient. Source: old records reviewed, obtained from family and nursing notes reviewed Medical History Anxiety Depression Surgical History H/O: hysterectomy Social History Social History Advance Directives: No Advance Directives Information Provided: No Physical Exam ED Vital Signs: Vital Signs - 24 hr 10/26/22 14:39 Temperature 98.2 F Pulse Rate 82 Respiratory Rate 20 Blood Pressure 141/91 H Pulse Oximetry 95 Oxygen Delivery Method Room Air BMI result Body Mass Index 28.3 Vital signs have been reviewed and blood pressure 141/91. Pulse 82. Respirations 20. Temperature 98.2 degrees. Oxygen saturation 95% on room air. Appearance: Alert. Oriented X3. No acute distress. No angioedema noted. Head: Normal external exam. Normocephalic. Eyes: PERRLA. EOMI. Conjunctiva and sclera normal. Eyelids normal. ENT: Pharynx normal. Uvula midline. Moist mucous membranes. No trismus noted. No drooling noted. No muffled voice noted. Tolerating secretions well. No angioedema noted. Neck: Normal inspection. Neck supple. FROM. No adenopathy. No meningeal signs. CVS: Normal heart rate and rhythm. Heart sound normal. No murmurs noted. Pulses normal throughout. Respiratory: No respiratory distress. Painless inspiration. Breath sounds normal. No wheezes/rales/rhonchi noted. Chest nontender. No accessory muscle usage noted or decreased air movement noted. Abdomen: Soft and mild tenderness to palpation diffusely. Nondistended. No guarding. No rigidity. Bowel sounds normal in all 4 quadrants. No distention noted. No organomegaly noted. No visible injury noted. No rebound tenderness. Negative Rovsing sign. Negative obturator's sign. Negative psoas sign. Negative Bloom sign. Back: + left CVA tenderness. No Right CVAT. Full range of motion noted. Skin: Skin warm and dry. Normal skin color. Normal skin turgor. No rashes/lesions/lacerations noted. Extremities: Extremities exhibit normal range of motion. Extremities nontender. Neuro: Oriented X 3. No motor deficit. No sensory deficit. Reflexes normal. Normal steady gait. CN's II-XII intact bilaterally? Course Course Course Narrative: 15pm - 47yoF with a PMHx of substance abuse who was diagnosed with pyelonephritis yesterday on 10/25/2022 a sent home with Cefixime although the pharmacy called me earlier this morning and reported that this prescription will not be covered by her pharmacy therefore we changed it to cefuroxime although when she took the 1st dose of this antibiotic she immediately started vomiting and her whole body became very itchy. She believes she might be having allergic reaction. She reports that she is allergic to penicillins although this was not in our allergy list therefore I updated at this time and also put cephalosporins in there. Patient reports otherwise her abdominal pain in her left flank pain has improved. She is not having any fevers or chills. I wanted to give the patient IV fluids and admit the patient although patient reports she does not want to be admitted she is refusing she would rather have allergy medication and change her antibiotic can be discharged home. I was able to convince the patient to at least give me some labs. On exam patient is very pruritic and having some nausea although no active vomiting and there is no angioedema or rash noted to the body. Plan: Therefore will obtain basic labs. Provide IM Reglan 5 mg, 50 mg of IM Benadryl and 60 mg of IM Solu-Medrol and re-evaluate Reevaluation(s) Reevaluation #1: Labs return patient with leukocytosis of 11,000 which is improved when compared to yesterday. Anion gap 10. BUN 19. Otherwise all other labs are within normal limits. Patient appears to still have UTI. She did, positive for opioids/amphetamines/cocaine and marijuana. Patient is feeling much better she is able to tolerate p.o. fluids and solids. Therefore at this time will trial Levaquin if patient can tolerate Levaquin and does not have any allergic reaction or nausea vomiting then I will discharge her due to patient requesting to be discharged he does not want to be admitted. Friend at bedside. They understand agree this plan. Time: 17:05 Medications Administered Discontinued Medications Generic Name Dose Route Start Last Admin Trade Name Joseq PRN Reason Stop Dose Admin Diphenhydramine HCl 50 mg 10/26/22 15:02 10/26/22 15:24 Diphenhydramine Hcl 50 Mg/Ml Vial IM 10/26/22 15:03 50 mg ONCE ONE Administration Levofloxacin 500 mg 10/26/22 16:44 10/26/22 17:01 Levofloxacin 500 Mg Tablet PO 10/26/22 16:45 500 mg ONCE ONE Administration Methylprednisolone Sodium Succinate 60 mg 10/26/22 15:02 10/26/22 15:29 Methylprednisolone Sod Succ 125 Mg/2 Ml Vial IM 10/26/22 15:03 60 mg ONCE ONE Administration Metoclopramide HCl 5 mg 10/26/22 15:02 10/26/22 15:25 Metoclopramide Hcl 10 Mg/2 Ml Vial IM 10/26/22 15:03 5 mg ONCE ONE Administration Medical Decision Making Admission/Observation Consideration of admission/observation: Escalation of care including admission/observation considered (I considered admission versus observation although patient refusing) Lab Data MDM Lab Attestation statement: I reviewed the patient's lab results. 10/26/22 15:52 10/26/22 15:52 Labs: Lab Results 10/26/22 10/26/22 10/26/22 Range/Units 15:45 15:45 15:52 WBC 11.5 H (4.8-10.8) X10*3/uL RBC 4.67 (4.20-5.50) X10*6/uL Hgb 13.8 (12.0-16.0) g/dl Hct 42.0 (37.0-47.0) % MCV 89.9 (80.0-98.0) fL MCH 29.6 (27.0-33.0) pg MCHC 32.9 (31.0-35.0) g/dl RDW 12.7 (11.0-16.0) % Plt Count 221 (160-400) X10*3/uL MPV 10.6 (9.4-12.3) fL Immature Gran % (Auto) 0.6 H (0.0-0.4) % Neut % (Auto) 61.8 (45-73) % Lymph % (Auto) 29.7 (20-40) % Amelia % (Auto) 5.3 (2-11) % Eos % (Auto) 2.2 (0-4) % Baso % (Auto) 0.4 (0-2) % Lymph # (Auto) 3.4 (1.2-4.9) X10*3/uL Amelia # (Auto) 0.6 (0.1-1.2) X10*3/uL Eos # (Auto) 0.3 (0.0-0.4) X10*3/uL Baso # (Auto) 0.1 (0.0-0.2) X10*3/uL Abs Immat Gran (auto) 0.07 H (0.00-0.03) X10*3/uL Absolute Neuts (auto) 7.1 (2.0-8.3) x10*3/uL Absolute Nucleated RBC 0.000 (0.0-0.012) X10*3/uL Nucleated RBC % (auto) 0.0 (0.0-0.2) /100WBC Sodium (135-145) mmol/L Potassium (3.3-5.1) mmol/L Chloride (96-108) mmol/L Carbon Dioxide (22-29) mmol/L Anion Gap (12-20) BUN (9-16) mg/dL Creatinine (0.5-1.4) mg/dL Estim Creat Clear Calc Estimated GFR Random Glucose (60-115) mg/dL Calcium (8.4-10.2) mg/dL Magnesium (1.6-2.6) mg/dL Total Bilirubin (0.0-1.0) mg/dL AST (5-31) U/L ALT (0-31) U/L Alkaline Phosphatase (39-117) U/L Total Protein (6.5-8.0) g/dL Albumin (3.5-5.0) g/dL Urine Color Dark Yellow Urine Appearance Turbid Urine pH 5.5 (5.0-9.0) Ur Specific [place] >= 1.030 H (1.005-1.025) Urine Protein 30 (1+) H (Neg-Trace) mg/dL Urine Glucose (UA) Negative (Negative) mg/dL Urine Ketones Trace (Negative) mg/dL Urine Blood Negative (Negative) Urine Nitrite Negative (Negative) Ur Leukocyte Esterase Moderate (2+) H (Negative) Urine RBC 6-10 H (0-2) /HPF Urine WBC >50 H (0-5) /HPF Ur Squamous Epith Cells >20 (0-2) /HPF Urine Bacteria Trace (None Seen) Hyaline Casts 3-5 (0-2) /LPF Urine Opiates Screen POSITIVE H (Not Detect) Urine Fentanyl Screen Not Detected (Not Detect) Ur Barbiturates Screen Not Detected (Not Detect) Ur Phencyclidine Scrn Not Detected (Not Detect) Ur Amphetamines Screen POSITIVE H (Not Detect) U Benzodiazepines Scrn Not Detected (Not Detect) Urine Cocaine Screen POSITIVE H (Not Detect) U Marijuana (THC) Screen POSITIVE H (Not Detect) 10/26/22 Range/Units 15:52 WBC (4.8-10.8) X10*3/uL RBC (4.20-5.50) X10*6/uL Hgb (12.0-16.0) g/dl Hct (37.0-47.0) % MCV (80.0-98.0) fL MCH (27.0-33.0) pg MCHC (31.0-35.0) g/dl RDW (11.0-16.0) % Plt Count (160-400) X10*3/uL MPV (9.4-12.3) fL Immature Gran % (Auto) (0.0-0.4) % Neut % (Auto) (45-73) % Lymph % (Auto) (20-40) % Amelia % (Auto) (2-11) % Eos % (Auto) (0-4) % Baso % (Auto) (0-2) % Lymph # (Auto) (1.2-4.9) X10*3/uL Amelia # (Auto) (0.1-1.2) X10*3/uL Eos # (Auto) (0.0-0.4) X10*3/uL Baso # (Auto) (0.0-0.2) X10*3/uL Abs Immat Gran (auto) (0.00-0.03) X10*3/uL Absolute Neuts (auto) (2.0-8.3) x10*3/uL Absolute Nucleated RBC (0.0-0.012) X10*3/uL Nucleated RBC % (auto) (0.0-0.2) /100WBC Sodium 139 (135-145) mmol/L Potassium 4.4 (3.3-5.1) mmol/L Chloride 104 (96-108) mmol/L Carbon Dioxide 29 (22-29) mmol/L Anion Gap 10 L (12-20) BUN 19 H (9-16) mg/dL Creatinine 0.77 (0.5-1.4) mg/dL Estim Creat Clear Calc 94.7 Estimated GFR > 60 Random Glucose 104 (60-115) mg/dL Calcium 9.0 D (8.4-10.2) mg/dL Magnesium 1.7 (1.6-2.6) mg/dL Total Bilirubin 0.4 (0.0-1.0) mg/dL AST 16 (5-31) U/L ALT 20 (0-31) U/L Alkaline Phosphatase 77 (39-117) U/L Total Protein 6.5 (6.5-8.0) g/dL Albumin 4.0 (3.5-5.0) g/dL Urine Color Urine Appearance Urine pH (5.0-9.0) Ur Specific [place] (1.005-1.025) Urine Protein (Neg-Trace) mg/dL Urine Glucose (UA) (Negative) mg/dL Urine Ketones (Negative) mg/dL Urine Blood (Negative) Urine Nitrite (Negative) Ur Leukocyte Esterase (Negative) Urine RBC (0-2) /HPF Urine WBC (0-5) /HPF Ur Squamous Epith Cells (0-2) /HPF Urine Bacteria (None Seen) Hyaline Casts (0-2) /LPF Urine Opiates Screen (Not Detect) Urine Fentanyl Screen (Not Detect) Ur Barbiturates Screen (Not Detect) Ur Phencyclidine Scrn (Not Detect) Ur Amphetamines Screen (Not Detect) U Benzodiazepines Scrn (Not Detect) Urine Cocaine Screen (Not Detect) U Marijuana (THC) Screen (Not Detect) Independent Historian Clinical information obtained from an independent historian. History obtained from or confirmed by: Friend External Record Review External record reviewed: Inpatient record, Office record, Outpatient record, Prior outpatient labs, Prior outpatient radiology, Primary care record and Outside ED record I reviewed all the patient's prior labs imaging and notes in her system Prescription Management I considered prescription management with: Antibiotic and Other (Antiemetics and allergic medication) Discharge Plan Discharge Clinical Impression: Allergic reaction, Pyelonephritis Patient Disposition: Home, Self-Care Instructions: Kidney Infection (ED), General Allergic Reaction (ED) Prescriptions: New levofloxacin 750 mg tablet 750 mg PO DAILY 5 Days Qty: 5 0RF metoclopramide HCl [Reglan] 10 mg tablet 10 mg PO Q6H PRN (Reason: nausea and vomiting) Qty: 14 0RF diphenhydramine HCl [Benadryl Allergy] 25 mg tablet 50 mg PO TID PRN (Reason: allergic reaction) Qty: 14 0RF prednisone 20 mg tablet 40 mg PO DAILY 5 Days Qty: 10 0RF No Action venlafaxine 75 mg capsule,extended release 24hr 75 cap PO BEDTIME clonazepam 1 mg tablet 1 mg PO BID PRN (Reason: Anxiety) dextroamphetamine-amphetamine 30 mg tablet 30 mg PO DAILY topiramate 200 mg tablet 200 mg PO BEDTIME aripiprazole 20 mg tablet 20 mg PO DAILY Vyvanse 60 mg capsule 60 mg PO DAILY acetaminophen [Acetaminophen Jr] 160 mg Tablet,Chewable 640 mg PO Q4H PRN (Reason: Pain) diphenhydramine HCl 12.5 mg Tablet,Chewable 25 mg PO TID PRN (Reason: Itching) cyclobenzaprine 5 mg tablet 5 mg PO TID PRN (Reason: muscle spasm) 7 Days Qty: 21 0RF tramadol 50 mg tablet 50 mg PO BID PRN (Reason: pain) Qty: 6 0RF cefixime 400 mg capsule 400 mg PO DAILY 7 Days Qty: 7 0RF ondansetron 4 mg film 4 mg PO Q8H PRN (Reason: nausea and vomiting) Qty: 10 0RF Referrals: Physician,Unknown J [Primary Care Provider] - (your pcp as needed)
[2022-10-26] MEDS: levoFLOXacin 500 MG TABLET PO (17:01)
== END 2022-10-26 17:27 | disposition home or self-care (01) ==
PROVIDERS: Physician Assistant Medical; Emergency Provider Emergency Medicine
DX: R11.2 Nausea with vomiting, unspecified (principal); L29.9 Pruritus, unspecified; T36.1X5A Adverse effect of cephalosporins and other beta-lactam antibiotics, initial encounter; Y92.9 Unspecified place or not applicable; N12 Tubulo-interstitial nephritis, not specified as acute or chronic; F19.10 Other psychoactive substance abuse, uncomplicated; Z79.899 Other long term (current) drug therapy
CPT/HCPCS: 36415; 80053; 80307; 81001; 81003; 83735; 85025; 96372; 99282; 99284; J1200; J2765; J2930

== ENCOUNTER 2022-11-02 16:35 | Emergency (ER) | payer MEDICAID, SELFPAY ==
[2022-11-02 17:41] VITALS: BP 147/75; PULSE 99; RESP 20; TEMP 36.8; O2SAT 97; BMI 28.3
--- NOTE | 2022-11-02 17:43 | ED.GENADULT ---
HPI - General Adult General Chief complaint: General Medical Stated complaint: kidney infection?/ cant swallow Related Data Home Medications Medication Instructions Recorded Confirmed acetaminophen 160 mg chewable 640 mg PO Q4H PRN Pain 06/23/21 06/23/21 tablet aripiprazole 20 mg tablet 20 mg PO DAILY 06/23/21 06/23/21 clonazepam 1 mg tablet 1 mg PO BID PRN Anxiety 06/23/21 06/23/21 dextroamphetamine-amphetamine 30 30 mg PO DAILY 06/23/21 06/23/21 mg tablet diphenhydramine HCl 12.5 mg 25 mg PO TID PRN Itching 06/23/21 06/23/21 chewable tablet lisdexamfetamine 60 mg capsule 60 mg PO DAILY 06/23/21 06/23/21 (Vyvanse) topiramate 200 mg tablet 200 mg PO BEDTIME 06/23/21 06/23/21 venlafaxine 75 mg capsule,extended 75 cap PO BEDTIME 06/23/21 06/23/21 release 24 hr Previous Rx's Medication Instructions Recorded cyclobenzaprine 5 mg tablet 5 mg PO TID PRN muscle spasm 7 08/26/22 days #21 tabs tramadol 50 mg tablet 50 mg PO BID PRN pain #6 tabs 10/01/22 cefixime 400 mg capsule 400 mg PO DAILY 7 days #7 caps 10/26/22 diphenhydramine HCl 25 mg tablet 50 mg PO TID PRN allergic reaction 10/26/22 (Benadryl Allergy) #14 tabs levofloxacin 750 mg tablet 750 mg PO DAILY uti 5 days #5 tabs 10/26/22 metoclopramide HCl 10 mg tablet 10 mg PO Q6H PRN nausea and 10/26/22 (Reglan) vomiting #14 tabs ondansetron 4 mg oral soluble film 4 mg PO Q8H PRN nausea and 10/26/22 vomiting #10 ea prednisone 20 mg tablet 40 mg PO DAILY inflammation 5 days 10/26/22 #10 tabs Allergies Allergy/AdvReac Type Severity Reaction Status Date / Time Penicillins Allergy Severe Anaphylaxis Verified 10/26/22 16:58 acetaminophen [From Tylenol] Allergy Intermediate Hives Verified 08/26/22 13:19 aspirin [ASPIRIN] Allergy Intermediate UNKNOWN Verified 08/26/22 13:19 gabapentin Allergy Intermediate Hives Verified 08/26/22 13:19 varenicline [From CHANTIX] Allergy Intermediate HIVES Verified 08/26/22 13:19 ibuprofen Allergy Anaphylaxis Verified 10/01/22 17:58 lurasidone [From Latuda] Allergy Unknown Verified 08/26/22 13:19 cefuroxime Allergy Mild Itching Uncoded 10/26/22 16:58 [facility] Past Medical History Medical History Anxiety Depression Surgical History H/O: hysterectomy Social History Social History Advance Directives: No Advance Directives Information Provided: No Physical Exam ED Vital Signs: Vital Signs - 24 hr 11/02/22 17:41 Temperature 98.2 F Pulse Rate 99 Respiratory Rate 20 Blood Pressure 147/75 H Pulse Oximetry 97 Oxygen Delivery Method Room Air BMI result Body Mass Index 28.3 Course Course Course Narrative: RME - 47 yo female with history of recent pyelonephritis 10/25 s/p treatment with Levaquin presents to the ER for evaluation of new onset hematuria that started today. She also reports full body itching without that started before her pyelo treatment. Was treated for this with Benadryl and Solumedrol when she was here on 10/26 for ?allergic reaction, although no rash. She also reports nausea, vomiting, confusion, trouble swallowing and vision trouble. She states she was outside today and cannot remember why she was outside or how she got there. Plan: UA, basic labs and Utox Discharge Plan Discharge Clinical Impression: Hematuria Patient Disposition: Elopement Prescriptions: No Action levofloxacin 750 mg tablet 750 mg PO DAILY 5 Days Qty: 5 0RF metoclopramide HCl [Reglan] 10 mg tablet 10 mg PO Q6H PRN (Reason: nausea and vomiting) Qty: 14 0RF diphenhydramine HCl [Benadryl Allergy] 25 mg tablet 50 mg PO TID PRN (Reason: allergic reaction) Qty: 14 0RF prednisone 20 mg tablet 40 mg PO DAILY 5 Days Qty: 10 0RF venlafaxine 75 mg capsule,extended release 24hr 75 cap PO BEDTIME clonazepam 1 mg tablet 1 mg PO BID PRN (Reason: Anxiety) dextroamphetamine-amphetamine 30 mg tablet 30 mg PO DAILY topiramate 200 mg tablet 200 mg PO BEDTIME aripiprazole 20 mg tablet 20 mg PO DAILY Vyvanse 60 mg capsule 60 mg PO DAILY acetaminophen [Acetaminophen Jr] 160 mg Tablet,Chewable 640 mg PO Q4H PRN (Reason: Pain) diphenhydramine HCl 12.5 mg Tablet,Chewable 25 mg PO TID PRN (Reason: Itching) cyclobenzaprine 5 mg tablet 5 mg PO TID PRN (Reason: muscle spasm) 7 Days Qty: 21 0RF tramadol 50 mg tablet 50 mg PO BID PRN (Reason: pain) Qty: 6 0RF cefixime 400 mg capsule 400 mg PO DAILY 7 Days Qty: 7 0RF ondansetron 4 mg film 4 mg PO Q8H PRN (Reason: nausea and vomiting) Qty: 10 0RF Discharge Date/Time: 11/02/22 20:30
--- NOTE | 2022-11-02 18:17 | MHC.EDTECH ---
pt was called back to triage to draw labs ,no response .
== END 2022-11-02 20:30 | disposition left against medical advice (07) ==
PROVIDERS: Emergency Provider Emergency Medicine
DX: R31.9 Hematuria, unspecified (principal)
CPT/HCPCS: 99281

== ENCOUNTER 2022-11-06 14:51 | Emergency (ER) | payer MEDICAID, SELFPAY ==
--- NOTE | 2022-11-06 15:07 | ED.GENADULT ---
HPI - General Adult General Chief complaint: Urogenital-Female Stated complaint: kidney infection, body rash, high bp Related Data Home Medications Medication Instructions Recorded Confirmed acetaminophen 160 mg chewable 640 mg PO Q4H PRN Pain 06/23/21 06/23/21 tablet aripiprazole 20 mg tablet 20 mg PO DAILY 06/23/21 06/23/21 clonazepam 1 mg tablet 1 mg PO BID PRN Anxiety 06/23/21 06/23/21 dextroamphetamine-amphetamine 30 30 mg PO DAILY 06/23/21 06/23/21 mg tablet diphenhydramine HCl 12.5 mg 25 mg PO TID PRN Itching 06/23/21 06/23/21 chewable tablet lisdexamfetamine 60 mg capsule 60 mg PO DAILY 06/23/21 06/23/21 (Vyvanse) topiramate 200 mg tablet 200 mg PO BEDTIME 06/23/21 06/23/21 venlafaxine 75 mg capsule,extended 75 cap PO BEDTIME 06/23/21 06/23/21 release 24 hr Previous Rx's Medication Instructions Recorded cyclobenzaprine 5 mg tablet 5 mg PO TID PRN muscle spasm 7 08/26/22 days #21 tabs tramadol 50 mg tablet 50 mg PO BID PRN pain #6 tabs 10/01/22 cefixime 400 mg capsule 400 mg PO DAILY 7 days #7 caps 10/26/22 diphenhydramine HCl 25 mg tablet 50 mg PO TID PRN allergic reaction 10/26/22 (Benadryl Allergy) #14 tabs levofloxacin 750 mg tablet 750 mg PO DAILY uti 5 days #5 tabs 10/26/22 metoclopramide HCl 10 mg tablet 10 mg PO Q6H PRN nausea and 10/26/22 (Reglan) vomiting #14 tabs ondansetron 4 mg oral soluble film 4 mg PO Q8H PRN nausea and 10/26/22 vomiting #10 ea prednisone 20 mg tablet 40 mg PO DAILY inflammation 5 days 10/26/22 #10 tabs Allergies Allergy/AdvReac Type Severity Reaction Status Date / Time Penicillins Allergy Severe Anaphylaxis Verified 11/06/22 15:12 acetaminophen [From Tylenol] Allergy Intermediate Hives Verified 11/06/22 15:12 aspirin [ASPIRIN] Allergy Intermediate UNKNOWN Verified 11/06/22 15:12 gabapentin Allergy Intermediate Hives Verified 11/06/22 15:12 varenicline [From CHANTIX] Allergy Intermediate HIVES Verified 11/06/22 15:12 ibuprofen Allergy Anaphylaxis Verified 11/06/22 15:12 lurasidone [From Latuda] Allergy Unknown Verified 11/06/22 15:12 cefuroxime Allergy Mild Itching Uncoded 10/26/22 16:58 PMFSH Past Medical History Medical History Anxiety Depression Surgical History H/O: hysterectomy Social History Social History Advance Directives: No Advance Directives Information Provided: No Physical Exam ED Vital Signs: BMI result Body Mass Index 28.3 Course Course Course Narrative: BILL - 47 yo F with a history of recent pyelonephritis 10/25 s/p treatment with levaquin who presents to the ER with complaints of ongoing hematuria since 11/02. Eloped on 11/02 without treatment. Finished 5 day course of abx. +vomiting, unable to keep water down. +chills, no fever. Left lower back pain. Seen by PCP told her she still had a UTI but was sent home without abx. Also has rash in lower extremities. Plan: Repeat labs, UA. Medical Decision Making Lab Data 11/06/22 17:04 11/06/22 17:04 Labs: Lab Results 11/06/22 11/06/22 11/06/22 Range/Units 17:04 17:04 17:04 WBC 10.1 (4.8-10.8) X10*3/uL RBC 4.92 (4.20-5.50) X10*6/uL Hgb 14.4 (12.0-16.0) g/dl Hct 43.5 (37.0-47.0) % MCV 88.4 (80.0-98.0) fL MCH 29.3 (27.0-33.0) pg MCHC 33.1 (31.0-35.0) g/dl RDW 12.6 (11.0-16.0) % Plt Count 200 (160-400) X10*3/uL MPV 10.9 (9.4-12.3) fL Immature Gran % (Auto) 0.3 (0.0-0.4) % Neut % (Auto) 64.4 (45-73) % Lymph % (Auto) 26.7 (20-40) % [place] % (Auto) 6.4 (2-11) % Eos % (Auto) 1.8 (0-4) % Baso % (Auto) 0.4 (0-2) % Lymph # (Auto) 2.7 (1.2-4.9) X10*3/uL [place] # (Auto) 0.7 (0.1-1.2) X10*3/uL Eos # (Auto) 0.2 (0.0-0.4) X10*3/uL Baso # (Auto) 0.0 (0.0-0.2) X10*3/uL Abs Immat Gran (auto) 0.03 (0.00-0.03) X10*3/uL Absolute Neuts (auto) 6.5 (2.0-8.3) x10*3/uL Absolute Nucleated RBC 0.000 (0.0-0.012) X10*3/uL Nucleated RBC % (auto) 0.0 (0.0-0.2) /100WBC Sodium Cancelled Potassium Cancelled Chloride Cancelled Carbon Dioxide Cancelled Anion Gap Cancelled BUN Cancelled Creatinine Cancelled Estim Creat Clear Calc Cancelled Estimated GFR Cancelled Random Glucose Cancelled Calcium Cancelled Magnesium Cancelled Total Bilirubin Cancelled Direct Bilirubin Cancelled AST Cancelled ALT Cancelled Alkaline Phosphatase Cancelled Total Protein Cancelled Albumin Cancelled Urine Color Yellow Urine Appearance Cloudy Urine pH 7.0 (5.0-9.0) Ur Specific [place] 1.020 (1.005-1.025) Urine Protein Negative (Neg-Trace) mg/dL Urine Glucose (UA) Negative (Negative) mg/dL Urine Ketones Negative (Negative) mg/dL Urine Blood Negative (Negative) Urine Nitrite Negative (Negative) Ur Leukocyte Esterase Large (3+) H (Negative) Urine RBC 0-2 (0-2) /HPF Urine WBC 21-50 H (0-5) /HPF Ur Squamous Epith Cells 6-10 (0-2) /HPF Urine Bacteria None Seen (None Seen) Hyaline Casts 0-2 (0-2) /LPF Urine Opiates Screen (Not Detect) Urine Fentanyl Screen (Not Detect) Ur Barbiturates Screen (Not Detect) Ur Phencyclidine Scrn (Not Detect) Ur Amphetamines Screen (Not Detect) U Benzodiazepines Scrn (Not Detect) Urine Cocaine Screen (Not Detect) U Marijuana (THC) Screen (Not Detect) Ethyl Alcohol Cancelled 11/06/22 Range/Units 17:05 WBC (4.8-10.8) X10*3/uL RBC (4.20-5.50) X10*6/uL Hgb (12.0-16.0) g/dl Hct (37.0-47.0) % MCV (80.0-98.0) fL MCH (27.0-33.0) pg MCHC (31.0-35.0) g/dl RDW (11.0-16.0) % Plt Count (160-400) X10*3/uL MPV (9.4-12.3) fL Immature Gran % (Auto) (0.0-0.4) % Neut % (Auto) (45-73) % Lymph % (Auto) (20-40) % [place] % (Auto) (2-11) % Eos % (Auto) (0-4) % Baso % (Auto) (0-2) % Lymph # (Auto) (1.2-4.9) X10*3/uL [place] # (Auto) (0.1-1.2) X10*3/uL Eos # (Auto) (0.0-0.4) X10*3/uL Baso # (Auto) (0.0-0.2) X10*3/uL Abs Immat Gran (auto) (0.00-0.03) X10*3/uL Absolute Neuts (auto) (2.0-8.3) x10*3/uL Absolute Nucleated RBC (0.0-0.012) X10*3/uL Nucleated RBC % (auto) (0.0-0.2) /100WBC Sodium Potassium Chloride Carbon Dioxide Anion Gap BUN Creatinine Estim Creat Clear Calc Estimated GFR Random Glucose Calcium Magnesium Total Bilirubin Direct Bilirubin AST ALT Alkaline Phosphatase Total Protein Albumin Urine Color Urine Appearance Urine pH (5.0-9.0) Ur Specific [place] (1.005-1.025) Urine Protein (Neg-Trace) mg/dL Urine Glucose (UA) (Negative) mg/dL Urine Ketones (Negative) mg/dL Urine Blood (Negative) Urine Nitrite (Negative) Ur Leukocyte Esterase (Negative) Urine RBC (0-2) /HPF Urine WBC (0-5) /HPF Ur Squamous Epith Cells (0-2) /HPF Urine Bacteria (None Seen) Hyaline Casts (0-2) /LPF Urine Opiates Screen POSITIVE H (Not Detect) Urine Fentanyl Screen Not Detected (Not Detect) Ur Barbiturates Screen Not Detected (Not Detect) Ur Phencyclidine Scrn Not Detected (Not Detect) Ur Amphetamines Screen Not Detected (Not Detect) U Benzodiazepines Scrn Not Detected (Not Detect) Urine Cocaine Screen POSITIVE H (Not Detect) U Marijuana (THC) Screen POSITIVE H (Not Detect) Ethyl Alcohol Discharge Plan Discharge Clinical Impression: Hematuria Patient Disposition: Elopement Prescriptions: No Action levofloxacin 750 mg tablet 750 mg PO DAILY 5 Days Qty: 5 0RF metoclopramide HCl [Reglan] 10 mg tablet 10 mg PO Q6H PRN (Reason: nausea and vomiting) Qty: 14 0RF diphenhydramine HCl [Benadryl Allergy] 25 mg tablet 50 mg PO TID PRN (Reason: allergic reaction) Qty: 14 0RF prednisone 20 mg tablet 40 mg PO DAILY 5 Days Qty: 10 0RF venlafaxine 75 mg capsule,extended release 24hr 75 cap PO BEDTIME clonazepam 1 mg tablet 1 mg PO BID PRN (Reason: Anxiety) dextroamphetamine-amphetamine 30 mg tablet 30 mg PO DAILY topiramate 200 mg tablet 200 mg PO BEDTIME aripiprazole 20 mg tablet 20 mg PO DAILY Vyvanse 60 mg capsule 60 mg PO DAILY acetaminophen [Acetaminophen Jr] 160 mg Tablet,Chewable 640 mg PO Q4H PRN (Reason: Pain) diphenhydramine HCl 12.5 mg Tablet,Chewable 25 mg PO TID PRN (Reason: Itching) cyclobenzaprine 5 mg tablet 5 mg PO TID PRN (Reason: muscle spasm) 7 Days Qty: 21 0RF tramadol 50 mg tablet 50 mg PO BID PRN (Reason: pain) Qty: 6 0RF cefixime 400 mg capsule 400 mg PO DAILY 7 Days Qty: 7 0RF ondansetron 4 mg film 4 mg PO Q8H PRN (Reason: nausea and vomiting) Qty: 10 0RF Interventions: ED Discharge Assessment Last Done: 11/06/22 21:17 Discharge Date/Time: 11/06/22 21:18
[2022-11-06 15:08] VITALS: BP 129/74; PULSE 93; RESP 16; TEMP 36.6; O2SAT 98; BMI 28.3
--- NOTE | 2022-11-06 17:07 | MHC.EDTECH ---
pt was called back to triage to collect urine sample and draw labs .
[2022-11-06 17:08] LABS: MANUAL DIFF FLAG NO
[2022-11-06 17:11] LABS: Appearance Urine Cloudy; Basophils Percent Auto 0.4 % (0-2); Color Urine Yellow; Eosinophils Absolute Auto 0.2 X10*3/uL (0.0-0.4); Eosinophils Percent Auto 1.8 % (0-4); Glucose Urine UA Negative (Negative); Hematocrit 43.5 % (37.0-47.0); Hemoglobin 14.4 g/dl (12.0-16.0); Imm Gran Abs Auto 0.03 X10*3/uL (0.00-0.03); Imm Gran Pct Auto 0.3 % (0.0-0.4); Leukocyte Esterase Urine Large (3+) (Negative); Lymphocytes Absolute Auto 2.7 X10*3/uL (1.2-4.9); Lymphocytes Percent Auto 26.7 % (20-40); Mean Corpuscular HGB Conc 33.1 g/dl (31.0-35.0); Mean Corpuscular Hemoglobin 29.3 pg (27.0-33.0); Mean Corpuscular Volume 88.4 fL (80.0-98.0); Mean Platelet Volume 10.9 fL (9.4-12.3); Monocytes Absolute Auto 0.7 X10*3/uL (0.1-1.2); Monocytes Percent Auto 6.4 % (2-11); Neutrophils Absolute Auto 6.5 x10*3/uL (2.0-8.3); Neutrophils Percent Auto 64.4 % (45-73); Nitrite Urine Negative (Negative); Platelet Count 200 X10*3/uL (160-400); Red Blood Count 4.92 X10*6/uL (4.20-5.50); Red Cell Distribution Width 12.6 % (11.0-16.0); UMIC TRIGGER UACC YES; Urine Blood Negative (Negative); Urine Ketones Negative (Negative); Urine Protein Negative (Neg-Trace); White Blood Count 10.1 X10*3/uL (4.8-10.8)
[2022-11-06 17:13] LABS: Bacteria Urine None Seen (None Seen); Hyaline Casts Urine 0-2 /LPF (0-2); RBC Urine 0-2 /HPF (0-2); UACC Culture Trigger YES; WBC Urine 21-50 /HPF (0-5)
[2022-11-06 17:26] LABS: Amphetamine Screen Urine Not Detected (Not Detect); Barbiturates, Urine Not Detected (Not Detect); Benzodiazepines Screen Urine Not Detected (Not Detect); Cannabinoid Screen Urine POSITIVE (Not Detect); Cocaine Screen Urine POSITIVE (Not Detect); Fentanyl, urine Not Detected (Not Detect); Opiate Screen Urine POSITIVE (Not Detect); Phencyclidine Screen Urine Not Detected (Not Detect)
== END 2022-11-06 21:18 | disposition left against medical advice (07) ==
PROVIDERS: Physician Assistant; Emergency Provider Emergency Medicine
DX: R21 Rash and other nonspecific skin eruption (principal); R31.9 Hematuria, unspecified; I10 Essential (primary) hypertension
CPT/HCPCS: 36415; 80307; 81001; 85025; 87086; 99282; 99283

== ENCOUNTER 2023-08-02 13:14 | Outpatient (AMB) | payer SELFPAY ==
--- NOTE | 2023-08-02 13:15 | MHC.PC.OV ---
Vital Signs 08/02/23 13:16 Height 5 ft 5 in Weight 181 lb 0.2 oz BMI 30.1 BP 98/62 Blood Pressure Location Lt brachial Position Sitting Pulse 81 Pulse Source Pulse Oximeter Pulse Oximetry (%) 97 Oxygen Delivery Method Room Air Intake Visit Reasons: New patient-req physical Customer Quality Specialist Required: No Allergies Penicillins Allergy (Severe, Verified 08/02/23 13:30) Anaphylaxis acetaminophen [From Tylenol] Allergy (Intermediate, Verified 08/02/23 13:30) Hives aspirin [ASPIRIN] Allergy (Intermediate, Verified 08/02/23 13:30) UNKNOWN gabapentin Allergy (Intermediate, Verified 08/02/23 13:30) Hives varenicline [From CHANTIX] Allergy (Intermediate, Verified 08/02/23 13:30) HIVES ibuprofen Allergy (Verified 08/02/23 13:30) Anaphylaxis lurasidone [From Latuda] Allergy (Verified 08/02/23 13:30) Unknown Bees Allergy (Intermediate, Uncoded 08/02/23 13:19) Anaphylaxis cefuroxime Allergy (Mild, Uncoded 08/02/23 13:18) Itching Medication List - Last Reconciled 08/02/23 by DAVID Jeter aripiprazole 20 mg PO DAILY clonazepam 1 mg PO BID PRN dextroamphetamine-amphetamine 15 mg (Adderall) 15 mg PO DAILY diphenhydramine HCl (Benadryl Allergy) 50 mg (2 x 25 mg) PO TID PRN lisdexamfetamine (Vyvanse) 60 mg PO DAILY topiramate 200 mg PO BEDTIME venlafaxine ER 75 caps PO BEDTIME Tobacco use date assessed: 08/02/23 Dental Screening Dental Screen Date: 08/02/23 Did you have a dental visit in the last 12 months?: No Did you have a dental problem in the last 6 months where you did not have access to dental care?: No HPI HPI Comments History of Present Illness Details 48-year-old female new patient presents today to [facility] care. Past medical history significant for anxiety, depression, ADHD. Patient reports currently follows with a psychiatrist, stable on medications. Patient also reports history of hiatal hernia which she was diagnosed with years ago patient says ever since then she is unable to keep anything down states that she vomits multiple times per day after eating sometimes even after drinking water. Patient reports that she feels like her food gets stuck in her epigastric area. Abdominal CT completed September 2022 showed no acute findings, borderline splenomegaly. Patient reports she does have Zofran at home that [facility] she [facility] with good effect. Patient requesting referral to Gastroenterology. Patient states she was supposed to have a repeat endoscopy at 1 point in time however she had COVID so she could not go. Patient unsure where she was previously seen for Gastroenterology. Patient also requesting referral to an maid housekeeper patient has moved multiple medication allergies as well as allergic to bees. Patient states that she will have tongue swelling and hives randomly after certain thing she eats. Patient reports mostly recently ate [employer] and her tongue started to swell. Patient states she carries children's liquid Benadryl with her everywhere due to this. Patient states she is unable to take adult Benadryl as it makes her off her rocker . Patient reports constant patient states she has BMs every 4 days and they are hard. Offered prescription for MiraLax however patient would have to drink this and previously noted she has vomiting. Patient states to please prescribe MiraLax and states she can drink it with her morning coffee. Previous PCP: Arturo stone; Chikis Mosqueda Patient requesting referral to OBGYN, referral entered Patient states last mammogram years ago order entered. [facility] Medical History (Updated 08/02/23 @ 14:02 by DAVID Jeter) Hiatal hernia Depression Anxiety Surgical History (Updated 08/02/23 @ 13:34 by DAVID Jeter) S/P tonsillectomy H/O: hysterectomy Social History (Updated 08/02/23 @ 13:35 by DAVID Jeter) Housing: Apartment Alcohol intake: never Patient Tobacco Use Status: Current everyday Tobacco user Cigarettes Per Day: 10 Substance Use Type: Marijuana service: No Current occupational status: unemployed Cognitive needs: No Hearing needs: No Vision needs: No Questionnaire PHQ-9 Over the last 2 weeks, how often have you been bothered by any of the following problems? 1. Little interest or pleasure in doing things: not at all 2. Feeling down, depressed, or hopeless: not at all 3. Trouble falling or staying asleep, or sleeping too much: not at all 4. Feeling tired or having little energy: not at all 5. Poor appetite or overeating: not at all 6. Feeling bad about yourself - or that you are a failure or have let yourself or your family down: not at all 7. Trouble concentrating on things, such as reading the newspaper or watching television: not at all 8. Moving or speaking so slowly that other people could have noticed. Or the opposite - being so fidgety or restless that you have been moving around a lot more than usual: not at all 9. Thoughts that you would be better off or of hurting yourself in some way: not at all Total score: 0 Depression Screening Interpretation: Negative Depression Screening Done: Yes Source: Developed by Drs. Obi Eden, Danitza Funk, Jose Guadalupe Sweeney and colleagues, with an educational jennifer from [employer]. AUDIT C Alcohol Use Questionnaire (AUDIT-C) 1. How often do you have a drink containing alcohol?: Never 2. How many drinks containing alcohol do you have on a typical day when you are drinking?: 1 or 2 3. How often do you have six or more drinks on one occasion?: Never Total Score: 0 JOVITA-7 AMB Questionnaire JOVITA-7 Date JOVITA - 7 assessed: 08/02/23 Feeling nervous, anxious, or on edge: 3 = Nearly every day Not being able to stop or control worryin = Nearly every day Worrying too much about different things: 3 = Nearly every day Trouble relaxin = Nearly every day Being so restless that it is hard to sit still: 3 = Nearly every day Becoming easily annoyed or irritable: 3 = Nearly every day Feeling afraid as if something awful might happen: 0 = Not at all Total JOVITA-7 score (0-4 normal; 5-9 mild; 10-14 moderate; 15-21 severe): 18 Source: Developed by Drs. Obi Eden, Danitza Funk, Jose Guadalupe Sweeney and colleagues, with an educational jennifer from [employer]. Review of Systems Const Denies chills, Denies fatigue, Denies fever(s) and Denies poor appetite Eyes Denies no additional complaints ENT Reports Normal hearing present Card Denies chest pain, Denies syncope, Denies rapid heart rate and Denies dyspnea Resp Denies cough and Denies dyspnea GI Denies change in stool character, Denies constipation, Denies diarrhea, Denies nausea and Denies vomiting Denies urinary frequency, Denies dysuria and Denies urinary urgency Neuro Reports Normal hearing present, Denies confusion and Denies syncope Psych Denies confusion Endo Denies fatigue Physical exam (Primary Care) Vital Signs: Last Vital Signs Pulse 81 08/02/23 13:16 BP 98/62 08/02/23 13:16 Pulse Ox 97 08/02/23 13:16 Oxygen Delivery Method Room Air 08/02/23 13:16 BMI result Body Mass Index 30.1 Tobacco/Smoking Status: Tobacco use Status Tobacco use date assessed 08/02/23 08/02/23 13:24 Patient Tobacco Use Status Current everyday Tobacco 08/02/23 13:24 PHQ-9: PHQ-9 Score PHQ-9: Total score 0 08/02/23 13:24 Depression Screening Interpretation: Negative Const General: No confusion Orientation/consciousness: No confusion HENMT Head: Yes normocephalic and Yes atraumatic Eyes Conjunctivae: conjunctivae normal Chest Chest palpation & inspection: normal inspection of the chest Resp Effort & Inspection: normal respiratory effort Auscultation: clear to auscultation bilaterally, no crackles, no rhonchi and no wheezes Cardio Rate: regular rate Rhythm: regular rhythm Heart sounds: S1 normal heart sound present and S2 normal heart sound present GI Inspection: Yes normal to inspection Neuro General: No confusion Cranial nerves: Yes Normal hearing present Extrem General: No edema Assessment and Plan Assessment & Plan (1) Vomiting: Code(s): R11.10 - Vomiting, unspecified Plan: Patient advise can take Zofran as needed (2) Low back pain: Code(s): M54.50 - Low back pain, unspecified Plan: Patient reports ongoing low back pain would like physical therapy referral for this. \referral entered (3) Tongue swelling: Code(s): R22.0 - Localized swelling, mass and lump, head Plan: Referral entered to maid housekeeper for allergy testing. (4) ADHD: Code(s): F90.9 - Attention-deficit hyperactivity disorder, unspecified type Plan: Continue on current medications and continue to follow with psychiatry. (5) Constipation: Code(s): K59.00 - Constipation, unspecified Plan: MiraLax sent to patient's pharmacy. Encourage increase water intake. Plan Follow-up in 3 months for physical exam Orders: Orders TSH reflex Free T4 Today Z13.29 - Encounter for screening for other suspected endocrine disorder MM screening mammo BI Today Z12.31 - Encounter for screening mammogram for malignant neoplasm of breast Complete Blood Count Auto Diff Today Z13.0 - Encounter for screening for diseases of the blood and blood-forming organs and certain disorders involving the immune mechanism Comprehensive [place]. Panel Fast Today Z13.1 - Encounter for screening for diabetes mellitus Lipid Panel Today Z13.220 - Encounter for screening for lipoid disorders UA CC w/rflx Micro + Cult Today R30.0 - Dysuria PT Evaluation and Treatment Today M54.50 - Low back pain, unspecified Referrals Gastroenterology Referral R11.10 - Vomiting, unspecified Allergy & Immunology Referral R22.0 - Localized swelling, mass and lump, head CLIENT PROFESSIONAL Referral Z12.4 - Encounter for screening for malignant neoplasm of cervix Medications: New polyethylene glycol 3350 (Miralax) 17 grams PO DAILY 30 ea 0RF K59.00 - Constipation, unspecified Coding Level of Care Code New Pt Level 4 (14510) Diagnoses Vomiting R11.10 Low back pain M54.50 Tongue swelling R22.0 ADHD F90.9 Constipation K59.00
[2023-08-02 13:16] VITALS: BP 98/62; PULSE 81; O2SAT 97; BMI 30.1
== END 2023-08-02 13:59 | disposition home or self-care (01) ==
PROVIDERS: PCP Nurse Practitioner Family; Visit Provider Nurse Practitioner Family
DX: R11.10 Vomiting, unspecified (principal); M54.50 Low back pain, unspecified; R22.0 Localized swelling, mass and lump, head; F90.9 Attention-deficit hyperactivity disorder, unspecified type; K59.00 Constipation, unspecified
CPT/HCPCS: 99204

== ENCOUNTER 2023-10-06 15:08 | Outpatient (AMB) | payer OTHER, SELFPAY ==
--- OUTSIDE RECORDS SUMMARY | 2023-10-06 15:09 | XMS_ITS | Patient Health Record ---
Author Name Unknown Organization [facility] Address [address] [place] [address] Care Team Providers Care Vice President Of Business Development Name Role Phone Ros Barry Primary Care Provider Vanessa Gentile Unavailable [phone] Germania Samuels Unavailable [phone] ALLERGIES Allergen (clinical drug ingredient) Drug/Non Drug Allergy documented on EMR Reaction Allergy Type Onset Date Status prazosin prazosin worsened nightmares Drug Allergy Active lurasidone Latuda anaphylaxis Drug Allergy Acti ve varenicline Chantix anaphylaxis Drug Allergy Act jessica acetaminophen Tylenol anaphylaxis Drug Allergy A ctive ibuprofen Unknown Drug Allergy Active REASON FOR REFERRAL No Information MEDICATIONS Medication SIG (Take, Route, Frequency, Duration) Notes Start Date End Date Status EpiPen 2-Romero 0.3 mg as directed intramuscularly once for 1 day prn 01/06/2022 Not-Taking venlafaxine 75 mg 1 cap(s) orally once a day for 90 days Active Topamax 100 mg 1 tab(s) orally 2 times a day for 30 days 07/27/2023 Active Abilify 20 mg 1 tab(s) orally once a day for 90 days Active Vyvanse 30 mg 1 cap(s) orally bid for 30 days DO NOT FILL BEFORE 08/24/2023 07/27/2023 Active Adderall 15 mg 1 tab(s) orally 2 times a day for 30 days DO NOT FILL BEFORE 08/24/2023 07/27/2023 Active clonazePAM 1 mg 1 tab(s) orally twic e a day as needed for 30 days 09/23/2023 Active Adderall 15 mg 1 tab(s) orally twic e a day for 30 days 07/27/2023 Active Vyvanse 30 mg 1 cap(s) orally bid for 30 days 07/28/2023 Active SOCIAL HISTORY Tobacco Use: Social History Observation Description Date Details (start date - stop date) Current Smoker NA - NA Sex Assigned At : Social History Observation Description Sex Assigned At Unknown Smoking Smart Form: Question Answer Notes Are you a: current smoker When did you start smoking? 1988 How often do you smoke cigarettes? every day How many cigarettes a day do you smoke? - How soon after you wake up d o you smoke your first cigarette? after 60 min Are you interested in quitting? Thinking about q uitting PROBLEMS Problem Type ICD Code Onset Dates Problem Status W/U Status Risk SNOMED Code Notes Problem Bipolar disorder, current episode mixed, unspecified (F31.60) Active confirmed Mixed bipolar I disorder (95121942) Problem Post-traumatic stress disorder, chronic (F43.12) Active confirmed Posttraumat ic stress disorder (81789412) Problem ADHD, combined type (F90.2) Active confirmed Attention deficit hyperactivity disorder (393575064) Problem Panic disorder [episodic paroxysmal anxiety] (F41.0) Active confirmed Panic disor lonny (474732903) Problem Paresthesia of skin (R20.2) Active confirmed Skin sensation disturbance (14755072) Problem Hypoesthesia of skin (R20.1) Active confirmed Skin sensation disturbance (25203560) Problem Contracture, left hand (M24.542) Active confirmed Contracture of joint of hand (46745246) Problem Bipolar disorder, in partial remission, most recent episode depressed (F31.75) Active confirmed Depressed bipolar I disorder in remission (34127695) Encounters Encounter Location Date Provider Diagnosis [place] [address] [place] [address] 10/07/2022 Ros Barry No Show or Late Cancel NS.LTCX [place] [address] [place] [address] 10/21/2022 Ros Barry ADHD, combined type F90.2 and Panic disorder [episodic paroxysmal anxiety] F41.0 [place] [address] [place] [address] 10/29/2022 Ros Barry [place] [address] [place] [address] 11/04/2022 Ros Barry [place] [address] [place] [address] 11/23/2022 Ros Barry ADHD, combined type F90.2 [place] [address] [place] [address] 11/27/2022 Ros Barry [place] [address] [place] [address] 12/02/2022 Ros Barry ADHD, combined type F90.2 [place] [address] [place], [place] [address] 12/03/2022 Ros Barry [place] [address] [place] [address] 01/01/2023 Vanessa Gentile ADHD, combined type F90.2 [place] [address] [place] [address] 01/14/2023 Vanessa Gentile ADHD, combined type F90.2 [place] [address] [place] [address] 03/03/2023 Ros Barry ADHD, combined type F90.2 [place] [address] [place] [address] 03/24/2023 Ros Barry Panic disorder [episodic paroxysmal anxiety] F41.0 [place] [address] [place] [address] 04/22/2023 Vanessa Farfannt ADHD, combined type F90.2 [place] [address] [place] [address] 06/21/2023 Germaniadeanna Samuels ADHD, combined type F90.2 and Panic disorder [episodic paroxysmal anxiety] F41.0 [place] [address] [place] [address] 07/28/2023 Ros Barry ADHD, combined type F90.2 [place] [address] [place] [address] 08/19/2023 Ros Barry Bipolar disorder, current episode mixed, unspecified F31.60 [place] [address] [place] [address] 08/25/2023 Vanessa Gentile Panic disorder [episodic paroxysmal anxiety] F41.0 [place] [address] [place] [address] 09/22/2023 Ros Barry [place] [address] [place] [address] 09/23/2023 Ros Barry Panic disorder [episodic paroxysmal anxiety] F41.0 [place] [address] [place] [address] 01/21/2023 Ros Barry ADHD, combined type F90.2 ; Panic disorder [episodic paroxysmal anxiety] F41.0 ; Post-traumatic stress disorder, chronic F43.12 and Bipolar disorder, in partial remission, most recent episode depressed F31.75 [place] [address] [place] [address] 11/25/2022 Ros Barry ADHD, combined type F90.2 ; Panic disorder [episodic paroxysmal anxiety] F41.0 and Bipolar disorder, current episode mixed, unspecified F31.60 [place] [address] [place] [address] 03/22/2023 Ros Barry [place] [address] [place] [address] 03/24/2023 Ros Barry Bipolar disorder, current episode mixed, unspecified F31.60 ; Post-traumatic stress disorder, chronic F43.12 ; ADHD, combined type F90.2 and Panic disorder [episodic paroxysmal anxiety] F41.0 [place] [address] [place] [address] 05/25/2023 Ros Barry Post-traumatic stress disorder, chronic F43.12 ; ADHD, combined type F90.2 ; Panic disorder [episodic paroxysmal anxiety] F41.0 and Bipolar disorder, in partial remission, most recent episode depressed F31.75 [place] [address] [place] [address] 07/27/2023 Ros Barry Bipolar disorder, current episode mixed, unspecified F31.60 ; Post-traumatic stress disorder, chronic F43.12 ; ADHD, combined type F90.2 and Panic disorder [episodic paroxysmal anxiety] F41.[address] [address] 07/29/2023 Ros Barry ASSESSMENTS Encounter Date Diagnosis Assessment Notes Treatment Notes Treatment Clinical Notes 10/07/2022 No Show or Late Cancel (ICD-10 - NS.LTCX) 10/21/2022 ADHD, combined type (ICD-10 - F90.2) 11/23/2022 ADHD, combined type (ICD-10 - F90.2) 12/02/2022 ADHD, combined type (ICD-10 - F90.2) 01/01/2023 ADHD, combined type (ICD-10 - F90.2) 01/14/2023 ADHD, combined type (ICD-10 - F90.2) 03/03/2023 ADHD, combined type (ICD-10 - F90.2) 03/24/2023 Panic disorder [episodic paroxysmal anxiety] (ICD-10 - F41.0) 04/22/2023 ADHD, combined type (ICD-10 - F90.2) 06/21/2023 ADHD, combined type (ICD-10 - F90.2) 07/28/2023 ADHD, combined type (ICD-10 - F90.2) 08/19/2023 Bipolar disorder, current episode mixed, unspecified (ICD-10 - F31.60) 08/25/2023 Panic disorder [episodic paroxysmal anxiety] (ICD-10 - F41.0) 09/23/2023 Panic disorder [episodic paroxysmal anxiety] (ICD-10 - F41.0) 01/21/2023 ADHD, combined type (ICD-10 - F90.2) Chronic Condition stable and controlled. continue same plan with current medication and scheduled reassessment 01/21/2023 Panic disorder [episodic paroxysmal anxiety] (ICD-10 - F41.0) Chronic Condition stable and controlled. continue same plan with current medication and scheduled reassessment 11/25/2022 ADHD, combined type (ICD-10 - F90.2) Chronic Condition stable and controlled. continue same plan with current medication and scheduled reassessment 11/25/2022 Panic disorder [episodic paroxysmal anxiety] (ICD-10 - F41.0) Chronic Condition stable and controlled. continue same plan with current medication and scheduled reassessment 03/24/2023 Bipolar disorder, current episode mixed, unspecified (ICD-10 - F31.60) Chronic Condition stable and controlled. continue same plan with current medication and scheduled reassessment 03/24/2023 Post-traumatic stress disorder, chronic (ICD-10 - F43.12) Chronic Condition stable and controlled. continue same plan with current medication and scheduled reassessment 05/25/2023 Post-traumatic stress disorder, chronic (ICD-10 - F43.12) 05/25/2023 ADHD, combined type (ICD-10 - F90.2) 07/27/2023 Bipolar disorder, current episode mixed, unspecified (ICD-10 - F31.60) Chronic Condition stable and controlled. continue same plan with current medication and scheduled reassessment 07/27/2023 Post-traumatic stress disorder, chronic (ICD-10 - F43.12) Chronic Condition stable and controlled. continue same plan with current medication and scheduled reassessment discussed ? of treating nightmares has no trust for therapist doesnt want more meds downloaded an ramona 10/21/2022 Panic disorder [episodic paroxysmal anxiety] (ICD-10 - F41.0) 06/21/2023 Panic disorder [episodic paroxysmal anxiety] (ICD-10 - F41.0) 01/21/2023 Post-traumatic stress disorder, chronic (ICD-10 - F43.12) Chronic Condition stable and controlled. continue same plan with current medication and scheduled reassessment 11/25/2022 Bipolar disorder, current episode mixed, unspecified (ICD-10 - F31.60) Chronic Condition stable and controlled. continue same plan with current medication and scheduled reassessment 03/24/2023 ADHD, combined type (ICD-10 - F90.2) Chronic Condition stable and controlled. continue same plan with current medication and scheduled reassessment 05/25/2023 Panic disorder [episodic paroxysmal anxiety] (ICD-10 - F41.0) 07/27/2023 ADHD, combined type (ICD-10 - F90.2) Chronic Condition stable and controlled. continue same plan with current medication and scheduled reassessment 01/21/2023 Bipolar disorder, in partial remission, most recent episode depressed (ICD-10 - F31.75) Chronic Condition stable and controlled. continue same plan with current medication and scheduled reassessment 03/24/2023 Panic disorder [episodic paroxysmal anxiety] (ICD-10 - F41.0) Chronic Condition stable and controlled. continue same plan with current medication and scheduled reassessment 05/25/2023 Bipolar disorder, in partial remission, most recent episode depressed (ICD-10 - F31.75) 07/27/2023 Panic disorder [episodic paroxysmal anxiety] (ICD-10 - F41.0) Chronic Condition stable and controlled. continue same plan with current medication and scheduled reassessment PLAN OF TREATMENT Pending Test Test Name Order Date X ray : Shoulder, left 06/25/2021 X ray : Neck 06/25/2021 COMPREHENSIVE METABOLIC PANL 06/30/2021 LIPID PANEL 06/30/2021 TSH WITH REFLEX TO T4 06/30/2021 Vitamin D25 OH 06/30/2021 CBC AUTO DIFF 06/30/2021 URINE CULTURE 01/06/2022 URINALYSIS, COMPLETE 01/06/2022 MRI Brain W/O Contrast 07/11/2021 MRI Brain W+W/O Contrast 06/25/2021 MRA Head W+W/O Contrast 06/25/2021 MRA Head W/O Contrast 07/11/2021 Insurance Providers Payer Name Payer Address Payer Phone Subscriber Number Group Number Insured Name Patient Relationship to Insured Coverage Start Date Coverage End Date [id number] [place] [employer] [address] [place] [address] [id number] Dominique PRADO Self - patient is the insured 4 [employer] [address] [address] [place] [address] [id number] Dominique PRADO Self - patient is the insured 4 MEDICAL (GENERAL) HISTORY Medical History History ICD Code chiari malformation kidney stones back and hip pain Wanted to see scale reclamation tender before covid but couldn't schedule Visit from Wednesday x-rays and blood wor k at [facility] Mild Stroke [address] [place] will start pc p there 04/2022 Surgical History Surgery Date(Month/Year) Hysterectomy (abnormal bleeding) 2002 Stentt for kidney stones 1994 Hospitalization History Reason Date(Month/Year) ER workup for mild stroke 2020
--- OUTSIDE RECORDS SUMMARY | 2023-10-06 15:09 | XMS_ITS | Continuity of Care Document ---
Author Name Unknown Organization [facility] [place] Address [address] [place] [address]- Care Team Providers Care Panama Hat Smearer Name Role Phone Jhonny KHALIL, Ros Hackett Primary Care Physicia n Encounter 11/19/22 - 11/26/22 [facility] [place] [address], [address] [place] [address]- Attending Physician: Joan Mas NP Admitting Physician: Joan Mas NP Referring Physician: Joan Mas NP Allergies, Adverse Reactions, Alerts Substance Reaction Severity Status gabapentin Active Chantix Active Medications ibuprofen 600 mg oral tablet 1 tablet = 600 mg, By Mouth, 4 times a day, # 20 tablet, 0 Refills Start Date: 02/14/09 Stop Date: 02/19/09 Status: Ordered lisinopril 5 mg oral tablet 5 mg, 1, tablet, By Mouth, Daily, # 30 tablet, Refills 0, Maintenance, 08/25/22 13:01:00 EST, Partial fill upon patient request if the prescription is for a schedule II opioid drug. Start Date: 08/25/22 Status: Ordered Suboxone 8 mg-2 mg Sublingual Film 1 film, Sublingual, 2 times a day, dissolve under the tongue, 0 Refills, Maintenance, 08/25/22 13:01:00 EST, Film, Partial fill upon patient request if the prescription is for a schedule II opioid drug. Start Date: 08/25/22 Status: Ordered Problem List Condition Confirmation Course Effective Dates Status Health St atus Informant Migraine headache Confirmed Active Results Radiology Reports * Exam Date Time Procedure Performing Provider Status 11/19/22 4:[address] Head/Brain W/O Contrast [place] , [facility]; Auth (Verified) Notes: (CT Head/Brain W/O Contrast) Reason For Exam: R55 SYNCOPE AND COLLAPSE RESULT: CT Head/Brain W/O Contrast CT Head/Brain W/O Contrast INDICATION: Reason: R55 SYNCOPE AND COLLAPSE; Clinical Question(s): Other: TECHNIQUE: Noncontrast head CT using axial technique and reconstructed in axial and coronal planes.Iterative reconstruction techniques are used to optimize dose and image quality. CTDIvol Head: 48.40 mGy, DLP Head: 774 mGy*cm. COMPARISON: Head CT 09/10/2013, 08/28/2018, and brain MRI 06/29/2021. FINDINGS: Electrical And Instrumentation Mechanic view findings, lines and tubes: None. BRAIN AND EXTRA-AXIAL SPACES: No parenchymal hemorrhage, midline shift, or mass effect. Vasquez-white matter differentiation is wellpreserved. No acute infarct. Ventricles, sulci, and basilar cisterns are normal. No subarachnoid hemorrhage. No subdural or epidural collection. CALVARIUM, SKULL BASE, AND SOFT TISSUES: No fractures or suspicious bony lesions. The paranasal sinuses and mastoid air cells are clear. Visualized orbits and globes are intact. The extracranial soft tissues are unremarkable. IMPRESSION: No acute intracranial pathology. WSN: [id number] Ordering Physician: Joan Mas Dictated By: Milagro Montero MD Dictated Date/Time: 11/19/22 5:09 pm Reviewed By: Milagro Montero MD Signed By: Milagro Montero MD Signed Date/Time: 11/19/22 5:09 pm Transcribed By: EVANGELINA Transcribed Date/Time: 11/19/22 5:06 pm Social History Social History Type Response Smoking Status 10 or more cigarette s (1/2 pack or more)/day in last 30 days entered on: 01/25/[address] Head WO contrast * BHSPowerscribe , CIS S: TRANSCRIMilagro Desir MD: VERIFY Event Display: Result: Authored Date: [id number] CT Head/Brain W/O Contrast INDICATION: Reason: R55 SYNCOPE AND COLLAPSE; Clinical Question(s): Other: TECHNIQUE: Noncontrast head CT using axial technique and reconstructed in axial and coronal planes.Iterative reconstruction techniques are used to optimize dose and image quality. CTDIvol Head: 48.40 mGy, DLP Head: 774 mGy*cm. COMPARISON: Head CT 09/10/2013, 08/28/2018, and brain MRI 06/29/2021. FINDINGS: Electrical And Instrumentation Mechanic view findings, lines and tubes: None. BRAIN AND EXTRA-AXIAL SPACES: No parenchymal hemorrhage, midline shift, or mass effect. Vasquez-white matter differentiation is wellpreserved. No acute infarct. Ventricles, sulci, and basilar cisterns are normal. No subarachnoid hemorrhage. No subdural or epidural collection. CALVARIUM, SKULL BASE, AND SOFT TISSUES: No fractures or suspicious bony lesions. The paranasal sinuses and mastoid air cells are clear. Visualized orbits and globes are intact. The extracranial soft tissues are unremarkable. IMPRESSION: No acute intracranial pathology. WSN: [id number] Ordering Physician: Joan Mas Dictated By: Milagro Montero MD Dictated Date/Time: 11/19/22 5:09 pm Reviewed By: Milagro Montero MD Signed By: Milagro Montero MD Signed Date/Time: 11/19/22 5:09 pm Transcribed By: EVANGELINA Transcribed Date/Time: 11/19/22 5:06 pm Patient Care team information Care Team Personnel Name: Jhonny KHALIL , Ros Hackett Position: S Outreach Member Role: PCP Address: Address: [address] [place] [address] [address] [place] [address]- Care Team Related Persons Name: RISHI TERRAZAS Address: home [address] [place] [address] Name: ERASMO MEYER Address: home [address] [place] [address] [place] [address] Name: ARABELLA MEYRE Address: home [address] [facility] [place] [address]
--- OUTSIDE RECORDS SUMMARY | 2023-10-06 15:09 | XMS_ITS | Continuity of Care Document ---
Author Name Unknown Organization [facility] Address Unknown Care Team Providers Care Earthmoving Plant Operator Name Role Phone Jhonny KHALIL, Ros Hackett Primary Care Physicia n [facility] [id number] Date(s): 06/30/21 - 07/07/21 [facility] Attending Physician: Rosibel Sood DNP Referring Physician: Chaz Pimentel Allergies, Adverse Reactions, Alerts Substance Reaction Severity Status gabapentin Active No known allergies Active Chantix Active Medications Abilify Tablet 75 mg, By Mouth, Daily at bedtime, Refills 0, Tot. Refills 0, 08/16/08 9:34:07 EST Start Date: 08/16/08 Status: Ordered Depakote ER 500 mg oral tablet, extended release 1 tablet = 500 mg, By Mouth, Daily, # 30 tablet, 0 Refills, Maintenance, ER Tablet Start Date: 07/26/12 Status: Ordered Effexor XR Capsule 75 mg, By Mouth, Daily, Refills 0, Tot. Refills 0, 08/16/08 9:34:38 EST Start Date: 08/16/08 Status: Ordered ibuprofen 600 mg oral tablet 1 tablet = 600 mg, By Mouth, 4 times a day, # 20 tablet, 0 Refills Start Date: 02/14/09 Stop Date: 02/19/09 Status: Ordered lorazepam 1 mg oral tablet 1 tablet = 1 mg, By Mouth, 3 times a day, 0 Refills, Maintenance Start Date: 07/26/12 Status: Ordered Medrol Dosepak 4 mg oral tablet 1 pack/packet, By Mouth, Once, as directed on package labeling, # 21 tablet, 0 Refills, Soft Stop, Tablet Start Date: 07/26/12 Stop Date: 08/01/12 Status: Ordered Percocet-5/325 325 mg-5 mg oral tablet 2 tablet, By Mouth, Every 6 hours, PRN Pain, # 12 tablet, 0 Refills, Maintenance Start Date: 04/29/11 Status: Ordered Percocet-5/325 325 mg-5 mg oral tablet 1 tablet, By Mouth, Every 6 hours, # 12 tablet, 0 Refills Start Date: 02/14/09 Stop Date: 02/17/09 Status: Ordered Percocet-5/325 325 mg-5 mg oral tablet 1 tablet, By Mouth, Every 4 hours, PRN for pain, # 15 tablet, 0 Refills, Maintenance, Tablet Start Date: 01/06/11 Status: Ordered Topamax 100 mg oral tablet 1 tablet = 100 mg, By Mouth, Daily at bedtime, # 90 tablet, 0 Refills, Maintenance, 01/25/19 11:52:22 EDT, Tablet Start Date: 01/25/19 Status: Ordered zolmitriptan 5 mg oral tablet 1 tablet = 5 mg, By Mouth, Once, PRN Headache, may repeat dose once in 2 hours, # 9 tablet, 1 Refills, Soft Stop Start Date: 07/26/12 Stop Date: 07/26/13 Status: Ordered Problem List Condition Effective Dates Status Health Status Inform ant Migraine headache(Confirmed) Active Social History Social History Type Response Smoking Status 10 or more cigarette s (1/2 pack or more)/day in last 30 days entered on: 01/25/19 Sex
--- OUTSIDE RECORDS SUMMARY | 2023-10-06 15:09 | XMS_ITS | Continuity of Care Document ---
Author Name Unknown Organization [facility] Address Unknown Care Team Providers Care Rope Cutter Name Role Phone Jhonny KHALIL, Ros Hackett Primary Care Physicia n Encounter [facility] [place] Date(s): 06/30/21 - 07/30/21 [facility] Attending Physician: Jillian Dueñas Admitting Physician: AdmJillian pérez Referring Physician: AdmtrJillian Allergies, Adverse Reactions, Alerts Substance Reaction Severity [...]
--- OUTSIDE RECORDS SUMMARY | 2023-10-06 15:09 | XMS_ITS | Continuity of Care Document ---
Author Name Unknown Organization [facility] Address [address] [place] [address]- Care Team Providers Care Director Quality Systems Name Role Phone Ros Barry MD Primary Care Physicia n Encounter [facility] Date(s): 08/25/22 - 08/25/[address] [address]- Discharge Disposition: A-D/C Walkout Attending Physician: Juan Gonsales MD Admitting Physician: Juan Gonsales MD Referring Physician: Not on Staff, Referring MD Allergies, Adverse Reactions, Alerts Substance Reaction Severity [...] St atus Informant Migraine headache Confirmed Active Social History Social History Type Response Smoking Status 10 or more cigarette s (1/2 pack or more)/day in last 30 days entered on: 01/25/19 Sex Patient Care team information Care Team Personnel Name: Ros Barry MD Position: [facility] Outreach Member Role: PCP Address: Address: [address] [place] [address]- Care Team Related Persons Name: RISHI TERRAZAS Address: home [address] [facility] [place] [address] Name: ERASMO MEYER Address: home [address] [address] Name: ARABELLA MEYER Address: home [address] [facility] [place] [address]
[2023-10-06 15:11] VITALS: BP 98/60; BMI 29.3
--- NOTE | 2023-10-06 15:11 | MHC.OFFVIS ---
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: vaginal itch Blow Down Helper Required: No Information Interpreted: non-clinical & clinical Thermostatic Controls Supervisor: Thermostatic Controls Supervisor Present (Richelle THOMSON) Accompanied by: Self / Same As Patient Allergies Penicillins Allergy (Severe, Verified 10/06/23 15:16) Anaphylaxis acetaminophen [From Tylenol] Allergy (Intermediate, Verified 10/06/23 15:16) Hives aspirin [ASPIRIN] Allergy (Intermediate, Verified 10/06/23 15:16) UNKNOWN gabapentin Allergy (Intermediate, Verified 10/06/23 15:16) Hives varenicline [From CHANTIX] Allergy (Intermediate, Verified 10/06/23 15:16) HIVES ibuprofen Allergy (Verified 10/06/23 15:16) Anaphylaxis lurasidone [From Latuda] Allergy (Verified 10/06/23 15:16) Unknown Bees Allergy (Intermediate, Uncoded 10/06/23 15:16) Anaphylaxis cefuroxime Allergy (Mild, Uncoded 10/06/23 15:16) Itching Is last menstrual period known: No (Hysterectomy) HPI HPI Comments History of Present Illness Details Presenting for annual exam. Complaining of vulvovaginal itching over the last few days Last Pap/HPV was 20 years ago, no history of abnormal Pap smear and the patient is status post hysterectomy with BSO for endometriosis 20 years Last Mammogram was many years ago, the patient is scheduled for a mammogram this p.m. [facility] Medical History Hiatal hernia Depression Anxiety Surgical History S/P tonsillectomy H/O: hysterectomy Family History Other Adopted Social History Household Members: Significant Other Housing: Apartment Alcohol intake: never Patient Tobacco Use Status: Current everyday Tobacco user Cigarettes Per Day: 10 Years Smoked: 26 Substance Use Type: Marijuana service: No Current occupational status: unemployed Sexual orientation: Straight/Heterosexual Gender identity: Female Cognitive needs: No Hearing needs: No Vision needs: No Female Reproductive History Menstrual Menopause type: surgical Total pregnancies: 3 Premature: 2 Number of Living Children: 2 Ab spontaneous: 1 Review of Systems Const All systems reviewed & are unremarkable except as noted in HPI and below Card Reports as per HPI Resp Reports as per HPI GI Reports as per HPI and Reports no additional complaints Reports as per HPI Physical Exam Vital Signs: Last Vital Signs BP 98/60 10/06/23 15:11 BMI result Body Mass Index 29.3 Const General: cooperative, healthy appearing and comfortable Chest Chest palpation & inspection: normal inspection of the chest and normal palpation of entire chest wall Breast/axilla inspection: normal inspection of the breasts and normal inspection of the axillae Breast/axilla palpation: normal palpation of the breasts, normal palpation of the axillae and no axillary lymphadenopathy Resp Effort & Inspection: normal respiratory effort Auscultation: clear to auscultation bilaterally Percussion: percussion normal Cardio Palpation: normal PMI Rate: regular rate Rhythm: regular rhythm Heart sounds: no murmurs and no rubs Peripheral pulses: Peripheral pulses 2+ throughout GI Inspection: Yes normal to inspection Palpation (GI): Soft to palpation, nontender, no guarding, not rigid and No hepatosplenomegaly present Percussion: Yes normal to percussion Auscultation: normal bowel sounds Rectal Exam - Female: deferred General: Yes bladder normal to palpation External Female Exam: No lesion Speculum Exam - Vagina: normal appearance of the vagina, normal palpation, normal vaginal discharge and not erythematous Speculum Exam - Cervix: Cervix absent Bimanual exam- vagina & uterus: normal bimanual exam, normal palpation, bladder normal to palpation and uterus absent Assessment & Plan Assessment & Plan (1) Well woman exam: Code(s): Z01.419 - Encounter for gynecological examination (general) (routine) without abnormal findings Plan: Cotesting not indicated. Mammogram schedule this p.m. Refer the patient to GI for screening colonoscopy Counseled the patient about the recommended dietary allowance of 1000 mg of Calcium & 600 IU of vitamin D. The patient was instructed to perform monthly self-breast exams and to schedule an annual exam in a year; All questions answered and the patient verbalized understanding. Instructed the patient to schedule annual exam in a year (2) Vulvovaginitis: Code(s): N76.0 - Acute vaginitis Plan: Bacterial Vaginosis panel taken, Terazol 0.8% q.h.s. for 3 days was sent to the patient's pharmacy. The patient was instructed to call if symptoms don't improve in 48 hours. Orders: Orders Bacterial Vaginosis Panel Today N89.8 - Other specified noninflammatory disorders of vagina Referrals Gastroenterology Referral Z12.11 - Encounter for screening for malignant neoplasm of colon Medications: New terconazole 0.8% 1 appful vaginal BEDTIME 20 grams 0RF 3 days Coding Level of Care Code New Pt Prev Care 40-64y(86502) Diagnoses Well woman exam Z01.419 Vulvovaginitis N76.0
== END 2023-10-06 16:09 | disposition home or self-care (01) ==
LOC: HO.HWS 15:08
PROVIDERS: PCP Nurse Practitioner Family; Visit Provider Obstetrics & Gynecology
DX: Z01.419 Encounter for gynecological examination (general) (routine) without abnormal findings (principal); N76.0 Acute vaginitis
CPT/HCPCS: 99386

== ENCOUNTER 2023-10-06 15:30 | Outpatient (REF) | payer OTHER, SELFPAY ==
[2023-10-07 11:12] LABS: BV Int Neg Control Negative (Negative); BV Int Pos Control Positive (Positive)
== END 2023-10-06 15:31 | disposition home or self-care (01) ==
LOC: HO.LNP 15:30
PROVIDERS: Visit Provider Obstetrics & Gynecology
DX: N89.8 Other specified noninflammatory disorders of vagina (principal)
CPT/HCPCS: 87480; 87510; 87660

== ENCOUNTER 2023-10-06 15:43 | Outpatient (REF) | payer OTHER, SELFPAY | END 2023-10-06 15:44 | disposition home or self-care (01) | LOC: HO.MAMMO 15:43 | PROVIDERS: Visit Provider Nurse Practitioner Family | DX: Z13.89 Encounter for screening for other disorder (principal) ==

== ENCOUNTER 2023-10-19 09:42 | Outpatient (REF) | payer OTHER, SELFPAY | END 2023-10-19 09:43 | disposition home or self-care (01) | LOC: HO.LAB 09:42 | PROVIDERS: Visit Provider Obstetrics & Gynecology | DX: Z13.89 Encounter for screening for other disorder (principal) ==

== ENCOUNTER 2023-10-19 09:42 | Outpatient (AMB) | payer OTHER, SELFPAY ==
--- NOTE | 2023-10-19 09:46 | A.OFFVIS_ITS ---
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: Food And Beverage Controller Present Allergies Penicillins Allergy (Severe, Verified 10/19/23 09:46) Anaphylaxis acetaminophen [From Tylenol] Allergy (Intermediate, Verified 10/19/23 09:46) Hives aspirin [ASPIRIN] Allergy (Intermediate, Verified 10/19/23 09:46) UNKNOWN gabapentin Allergy (Intermediate, Verified 10/19/23 09:46) Hives varenicline [From CHANTIX] Allergy (Intermediate, Verified 10/19/23 09:46) HIVES ibuprofen Allergy (Verified 10/19/23 09:46) Anaphylaxis lurasidone [From Latuda] Allergy (Verified 10/19/23 09:46) Unknown Bees Allergy (Intermediate, Uncoded 10/06/23 15:16) Anaphylaxis cefuroxime Allergy (Mild, Uncoded 10/06/23 15:16) Itching HPI HPI Comments History of Present Illness Details The patient is presenting for a test of cure. The patient took the antibiotics course; she informed her partner who was treated too. The patient reports no intercourse since then. STD screen serology were ordered but not done yet [facility] Medical History Hiatal hernia Depression Anxiety Surgical History S/P tonsillectomy H/O: hysterectomy Family History Other Adopted Social History Household Members: Significant Other Housing: Apartment Alcohol intake: never Patient Tobacco Use Status: Current everyday Tobacco user Cigarettes Per Day: 10 Years Smoked: 26 Substance Use Type: Marijuana service: No Current occupational status: unemployed Sexual orientation: Straight/Heterosexual Gender identity: Female Cognitive needs: No Hearing needs: No Vision needs: No Review of Systems Const All systems reviewed & are unremarkable except as noted in HPI and below Card Reports as per HPI and Reports no additional complaints Resp Reports as per HPI and Reports no additional complaints GI Reports as per HPI and Reports no additional complaints Reports as per HPI Physical Exam Vital Signs: Last Vital Signs BP 102/66 10/19/23 09:47 Const General: cooperative, healthy appearing and comfortable General: Yes no CVA tenderness External Female Exam: normal external appearance and normal appearance of the urethra Speculum Exam - Vagina: normal appearance of the vagina, normal palpation, no lesions and no masses Bimanual exam- vagina & uterus: normal palpation and uterus absent Bimanual Exam- Adnexa, other: Other (No masses detected) Back/Spine/Pelvis Back: no CVA tenderness Assessment & Plan Assessment & Plan (1) Trichomonas infection: Comment: For YOSELIN Code(s): A59.9 - Trichomoniasis, unspecified Plan: BV panel taken, instructions given the patient to have her STD serology screen and to be repeated in 6 months. Instructions given the patient to schedule a 3 months repeat YOSELIN appointment. All questions answered, the patient verbalized understanding Coding Level of Care Code Est Pt Level 3 (74465) Diagnoses Trichomonas infection A59.9
[2023-10-19 09:47] VITALS: BP 102/66
== END 2023-10-19 10:41 | disposition home or self-care (01) ==
LOC: HO.HWS 09:42
PROVIDERS: Visit Provider Obstetrics & Gynecology
DX: A59.9 Trichomoniasis, unspecified (principal)
CPT/HCPCS: 99213

== ENCOUNTER 2023-10-19 10:12 | Outpatient (REF) | payer OTHER, SELFPAY ==
[2023-10-19 11:40] LABS: HBsAGNum1 0.29 S/CO (0.00-0.99); HIV AB/AG Nonreactive (Nonreactive); HIV Num 1 0.05 S/CO (0.00-0.99); Hepatitis B Surface Antigen Negative (Negative); Syphilis Screen Nonreactive (Nonreactive); ~HepC Num1 0.07 S/CO (0.00-0.79); ~Hepatitis C Antibody Nonreactive (Nonreactive)
[2023-10-20 09:17] LABS: BV Int Neg Control Negative (Negative); BV Int Pos Control Positive (Positive)
== END 2023-10-19 10:13 | disposition home or self-care (01) ==
LOC: HO.LAB 10:12
PROVIDERS: Visit Provider Obstetrics & Gynecology
DX: Z11.4 Encounter for screening for human immunodeficiency virus [HIV] (principal); Z20.2 Contact with and (suspected) exposure to infections with a predominantly sexual mode of transmission; A59.9 Trichomoniasis, unspecified
CPT/HCPCS: 36415; 86780; 86803; 87340; 87389; 87480; 87510; 87660

== ENCOUNTER 2023-11-02 15:02 | Outpatient (AMB) | payer OTHER, SELFPAY ==
--- NOTE | 2023-11-02 15:04 | A.OFFVIS_ITS ---
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: Garment Manufacturing Supervisor Present (Richelle THOMSON) Accompanied by: Friend Allergies Penicillins Allergy (Severe, Verified 11/02/23 15:08) Anaphylaxis acetaminophen [From Tylenol] Allergy (Intermediate, Verified 11/02/23 15:08) Hives aspirin [ASPIRIN] Allergy (Intermediate, Verified 11/02/23 15:08) UNKNOWN gabapentin Allergy (Intermediate, Verified 11/02/23 15:08) Hives varenicline [From CHANTIX] Allergy (Intermediate, Verified 11/02/23 15:08) HIVES ibuprofen Allergy (Verified 11/02/23 15:08) Anaphylaxis lurasidone [From Latuda] Allergy (Verified 11/02/23 15:08) Unknown Bees Allergy (Intermediate, Uncoded 11/02/23 15:08) Anaphylaxis cefuroxime Allergy (Mild, Uncoded 11/02/23 15:08) Itching HPI HPI Comments History of Present Illness Details Presenting complaining of Last chest wall induration and redness that occurred after a fall. The patient went to the emergency room was diagnose with chest wall hematoma with prescribe cefoxitin at the patient not take it since she is allergic to it. Since then the size of the hematoma has shrunken but the skin redness has increased. No fever or chills , no other complaints PFSH Medical History Hiatal hernia Depression Anxiety Surgical History S/P tonsillectomy H/O: hysterectomy Family History Other Adopted Social History Household Members: Significant Other Housing: Apartment Alcohol intake: never Patient Tobacco Use Status: Current everyday Tobacco user Cigarettes Per Day: 10 Years Smoked: 26 Substance Use Type: Marijuana service: No Current occupational status: unemployed Sexual orientation: Straight/Heterosexual Gender identity: Female Cognitive needs: No Hearing needs: No Vision needs: No Physical Exam Skin Other: Left chest wall 1-2 cm hematoma with skin erythema possible early cellulitis, no evidence of abscess Assessment & Plan Assessment & Plan (1) Chest wall hematoma: Comment: With cellulitis Code(s): S20.219A - Contusion of unspecified front wall of thorax, initial encounter Plan: Will treat with Zithromax 500 mg p.o. day 1 then 250 mg p.o. q.d. for 4 days, instructions given the patient to call or go to emergency room in case of worsening of her pain and or redness, fever above 100.4 and to schedule a 1 week follow-up appointment. All questions answered, the patient verbalized understanding Medications: New azithromycin (Zithromax Z-Romero) Take 2 tablets day 1 ( 500 mg), then 250 mg daily from day 2-5 250 mg PO DAILY 5 days 6 tabs 0RF Coding Level of Care Code Est Pt Level 3 (41920) Diagnoses Chest wall hematoma S20.219A
[2023-11-02 15:07] VITALS: BP 108/70; BMI 29.0
== END 2023-11-02 15:17 | disposition home or self-care (01) ==
LOC: HO.HWS 15:02
PROVIDERS: Visit Provider Obstetrics & Gynecology
DX: S20.219A Contusion of unspecified front wall of thorax, initial encounter (principal)
CPT/HCPCS: 99213

== ENCOUNTER → 2023-11-02 15:02 | Outpatient (BNVA) | payer OTHER, SELFPAY | PROVIDERS: Visit Provider Obstetrics & Gynecology ==

== ENCOUNTER 2024-01-30 16:02 | Emergency (ER) | payer MEDICAID, SELFPAY ==
--- NOTE | ~2024-01-30 | XR_ITS ---
Examination: Chest and KUB. CLINICAL INDICATION: Constipation. SOB. COMPARISON: Chest 06/23/2021. TECHNIQUE: KUB one view. Chest one view. FINDINGS: KUB. There is moderate scattered stool in colon without significant distention. No organomegaly. No radiopaque calculi seen. No gross bony abnormality. Chest x-ray: The lungs are expanded and clear. Heart size and pulmonary vascularity is normal. No gross bony abnormality seen. XR/XR chest 1V IMPRESSION: Moderate constipation. No acute process seen in the abdomen. No acute cardiopulmonary process seen..
--- NOTE | ~2024-01-30 | XR_ITS ---
Examination: Chest and KUB. CLINICAL INDICATION: Constipation. SOB. COMPARISON: Chest 06/23/2021. TECHNIQUE: KUB one view. Chest one view. FINDINGS: KUB. There is moderate scattered stool in colon without significant distention. No organomegaly. No radiopaque calculi seen. No gross bony abnormality. Chest x-ray: The lungs are expanded and clear. Heart size and pulmonary vascularity is normal. No gross bony abnormality seen. XR/XR KUB IMPRESSION: Moderate constipation. No acute process seen in the abdomen. No acute cardiopulmonary process seen..
[2024-01-30 16:33] VITALS: BP 115/65; PULSE 118; RESP 24; TEMP 35.7; O2SAT 99; BMI 31.3
--- NOTE | 2024-01-30 16:39 | ED_ITS ---
HPI - General Adult General Chief complaint: General Medical Stated complaint: hard time breathing/loss of energy Time Seen by Provider: 01/30/24 22:20 Source: patient Mode of arrival: ambulatory Limitations: no limitations History of Present Illness ED Provider: Chantell Grover NP HPI narrative: Patient is a 48-year-old female with history of anxiety and depression, pyelonephritis presenting to the emergency department with complaint of constipation for the last 10 days. Reports she has only been able to have small, hard bowel movements. Occasionally notes bright red blood. Also complains having to strain to urinate for the past several days. Reports lower back pain, denies flank pain. Denies fevers. Denies nausea, vomiting, diarrhea. Reports feeling short of breath but feels it is due to her constipation. Has tried metamucil, enema, and lactulose without relief. complaint: constipation Onset (ago): day(s) Location: abdomen Radiation: non-radiation Severity: moderate Quality: aching Pain Consistency: constant Relieving factors: none Exacerbating factors: movement Treatments prior to arrival: other Related Data Previous Rx's ?Medication ?Instructions ?Recorded azithromycin 250 mg tablet 250 mg PO DAILY 5 days #6 tabs 11/02/23 (Zithromax Z-Romero) polyethylene glycol 3350 17 gram 17 g PO BID #14 ea 01/30/24 oral powder packet sennosides 8.6 mg tablet (Senna 8.6 mg PO BID PRN constipation #14 01/30/24 Lax) tabs sulfamethoxazole 800 1 tab PO BID #10 tabs 01/30/24 mg-trimethoprim 160 mg tablet (Bactrim DS) Allergies Allergy/AdvReac Type Severity Reaction Status Date / Time Penicillins Allergy Severe Anaphylaxis Verified 01/30/24 16:37 acetaminophen [From Tylenol] Allergy Intermediate Hives Verified 01/30/24 16:37 aspirin [ASPIRIN] Allergy Intermediate UNKNOWN Verified 01/30/24 16:37 gabapentin Allergy Intermediate Hives Verified 01/30/24 16:37 varenicline [From CHANTIX] Allergy Intermediate HIVES Verified 01/30/24 16:37 ibuprofen Allergy Anaphylaxis Verified 01/30/24 16:37 lurasidone [From Latuda] Allergy Unknown Verified 01/30/24 16:37 Bees Allergy Intermediate Anaphylaxis Uncoded 01/30/24 16:37 cefuroxime Allergy Mild Itching Uncoded 01/30/24 16:37 Review of Systems 2 Review of Systems: As per HPI. Yes all other systems are reviewed and are negative Constitutional: Constitutional: Reports as per HPI [facility] Past Medical History Medical History Hiatal hernia Depression Anxiety Surgical History S/P tonsillectomy H/O: hysterectomy Family History Family History Other Adopted Social History Social History Household Members: Significant Other Housing: Apartment Alcohol intake: never Patient Tobacco Use Status: Current everyday Tobacco user Cigarettes Per Day: 10 Years Smoked: 26 Substance Use Type: Marijuana Advance Directives: No Advance Directives Information Provided: No service: No Current occupational status: unemployed Sexual orientation: Straight/Heterosexual Gender identity: Female Cognitive needs: No Hearing needs: No Vision needs: No Physical Exam ED Vital Signs: Vital Signs - 24 hr 01/30/24 16:33 01/30/24 20:52 01/30/24 22:26 Temperature 96.3 F L 97.9 F 97.2 F Pulse Rate 118 H 99 71 Respiratory Rate 24 H 20 16 Blood Pressure 115/65 97/49 L 108/65 Pulse Oximetry 99 98 95 Oxygen Delivery Method Room Air Room Air Room Air 01/30/24 23:32 Temperature 97.2 F Pulse Rate 71 Respiratory Rate 16 Blood Pressure 108/65 Pulse Oximetry 95 Oxygen Delivery Method Room Air BMI result Body Mass Index 31.3 Vital signs have been reviewed and appear to be correct. Blood pressure normal. Heart rate normal. Respiratory rate normal. Temperature normal. Oxygen saturation normal. Const General: cooperative and no acute distress Orientation/consciousness: oriented to person, oriented to place, oriented to time and patient oriented x3 Limitations: no limitations HENMT Head: Yes normocephalic and Yes atraumatic Ears: external ears normal General nose exam: Normal external nose present Face and sinus: Yes face symmetric Mouth: oropharynx normal and moist mucous membranes Throat: Yes uvula midline Eyes Pupils: Equal, round and reactive pupils present Neck Neck: Yes normal visual inspection and Yes supple Resp Effort & Inspection: normal respiratory effort and able to speak in complete sentences Auscultation: clear to auscultation bilaterally Cardio Rate: regular rate Rhythm: regular rhythm Heart sounds: S1 normal heart sound present and S2 normal heart sound present GI Inspection: Yes normal to inspection Palpation (GI): Soft to palpation and Tenderness to palpation present (GI) (mild diffuse tenderness) with no rebound tenderness Auscultation: normoactive bowel sounds General: Yes no CVA tenderness Back/Spine/Pelvis Back: no CVA tenderness Skin General skin exam: elasticity normal and turgor normal Neuro General: oriented to person, oriented to place, oriented to time, patient oriented x3, moves all extremities, no focal motor deficits and CN's II-XI intact bilaterally Cranial nerves: Yes Equal, round and reactive pupils present Cognition (Neuro): normal cognition Extrem General: Yes full ROM, Yes no pedal edema and Yes no calf tenderness Psych Mental Status: mental status grossly normal Affect: normal affect Thought process: Normal thought process present Course Course Course Narrative: RME: RME Done by CALOS Patrick. 48-year-old female presents to ED for for 10 days of constipation. Patient states no flatus. Patient states only having kt in pool. Patient states profuse rectal bleeding. Patient states feeling fatigued. Patient also states due to abdominal pain and fullness having shortness of breath. EKG labs imaging ordered. 6:04pm: Not able to get CT scan IV contrast due to patient's in the waiting room and no beds available in the ED. We will start with a KUB and chest x-ray. If necessary provider in ED we will reorder a CT scan. Medical Decision Making Medical Decision Making MDM Narrative: Patient is a 48-year-old female with history of anxiety and depression, pyelonephritis presenting to the emergency department with complaint of constipation for the last 10 days. On exam patient is awake, A+Ox3, VS WNL, afebrile, normal neurological exam without focal deficits, physical exam findings as above. Given reported symptoms and physical exam findings, initial differential includes constipation, anemia, UTI. Labs notable for mild leukocytosis, no anemia, no JOAO. KUB notable for moderate constipation, CXR notable for no acute cardiopulmonary abnormality. My interpretation is in agreement with the radiologist's interpretation. Urinalysis notable for 3+ leukocytes, 21-50 wbcs. Given urinary symptoms, will treat for UTI at this time. Offered patient enema in the ED versus discharge home with medications and patient requesting discharge home with medications at this time. Discussed with patient that if medications are unsuccessful, she may need to return for enema. Instructed patient to follow up with PCP. Return precautions discussed at bedside. Patient verbalized understanding of and agreement with plan. Differential Diagnosis Differential Diagnoses: The differential diagnosis associated with the presentation includes As per MDM. Admission/Observation Consideration of admission/observation: Escalation of care including admission/observation considered Patient would have been admitted to the hospital had their work up had any findings where hospital admission was appropriate and their clinical presentation warranted hospital admission. Lab Data [facility] [place] Lab Attestation statement: I reviewed the patient's lab results. As per MDM. 01/30/24 17:14 01/30/24 17:14 Labs: Lab Results 01/30/24 Range/Units 17:14 WBC 12.1 H (4.8-10.8) X10*3/uL RBC 5.34 (4.20-5.50) X10*6/uL Hgb 15.9 (12.0-16.0) g/dl Hct 47.5 H (37.0-47.0) % MCV 89.0 (80.0-98.0) fL MCH 29.8 (27.0-33.0) pg MCHC 33.5 (31.0-35.0) g/dl RDW 13.0 (11.0-16.0) % Plt Count 239 (160-400) X10*3/uL MPV 11.0 (9.4-12.3) fL Immature Gran % (Auto) 0.5 H (0.0-0.4) % Neut % (Auto) 69.9 (45-73) % Lymph % (Auto) 23.5 (20-40) % Reynolds % (Auto) 3.6 (2-11) % Eos % (Auto) 2.0 (0-4) % Baso % (Auto) 0.5 (0-2) % Lymph # (Auto) 2.8 (1.2-4.9) X10*3/uL Reynolds # (Auto) 0.4 (0.1-1.2) X10*3/uL Eos # (Auto) 0.2 (0.0-0.4) X10*3/uL Baso # (Auto) 0.1 (0.0-0.2) X10*3/uL Abs Immat Gran (auto) 0.06 H (0.00-0.03) X10*3/uL Absolute Neuts (auto) 8.4 H (2.0-8.3) x10*3/uL Absolute Nucleated RBC 0.000 (0.0-0.012) X10*3/uL Nucleated RBC % (auto) 0.0 (0.0-0.2) /100WBC PT 11.1 (11.1-13.3) SEC INR 0.9 (0.9-1.1) APTT 26.5 (26.0-36.8) SEC Sodium 136 (135-145) mmol/L Potassium 4.8 (3.3-5.1) mmol/L Chloride 104 (96-108) mmol/L Carbon Dioxide 24 (22-29) mmol/L Anion Gap 13 (12-20) BUN 19 H (9-16) mg/dL Creatinine 0.64 (0.5-1.4) mg/dL Estim Creat Clear Calc 118.5 Estimated GFR > 60 Random Glucose 85 (60-115) mg/dL Calcium 9.8 D (8.4-10.2) mg/dL Total Bilirubin 0.3 (0.0-1.0) mg/dL AST 15 (5-31) U/L ALT 20 (0-31) U/L Alkaline Phosphatase 77 (39-117) U/L Troponin I High Sens < 2.7 (<3.5-17.0) ng/L Total Protein 7.4 (6.5-8.0) g/dL Albumin 4.3 (3.5-5.0) g/dL Lipase 11 (8-78) U/L Independent Interpretation I performed an independent interpretation of an: Plain X-Ray Interpretation: KUB notable for moderate constipation. CXR notable to no evidence of pneumonia. Radiology Impression Discussion of test interpretation with radiology: I have reviewed the radiologist's reading. Radiologist Impression: XR/XR KUB IMPRESSION: Moderate constipation. No acute process seen in the abdomen. No acute cardiopulmonary process seen.. External Record Review External record reviewed: Inpatient record, Office record and Outpatient record Prescription Management I considered prescription management with: Antibiotic and Other Discharge Plan Discharge Clinical Impression: UTI (urinary tract infection), Constipation Patient Disposition: Home, Self-Care Instructions: Constipation (DC), Urinary Tract Infection in Women (DC), High Fiber Diet (ED), Fleet Enema (ED) Additional Instructions: You were evaluated in the emergency department today for constipation and difficulty urinating. Your urine showed evidence of infection and you are being treated with a course of antibiotics. Please complete the full course as prescribed even if your symptoms improve. You are being prescribed medications for constipation, please take these as prescribed. You should follow up with your primary care provider this week. Return to the emergency department if you develop worsening pain, fever 100.4F or greater, persistent vomiting, dizziness, lightheadedness, fainting or any other concerning symptoms. Prescriptions: New sennosides [Senna Lax] 8.6 mg tablet 8.6 mg PO BID PRN (Reason: constipation) Qty: 14 0RF polyethylene glycol 3350 17 gram powder in packet 17 g PO BID Qty: 14 0RF sulfamethoxazole-trimethoprim [Bactrim DS] 800-160 mg tablet 1 tab PO BID Qty: 10 0RF No Action azithromycin [Zithromax Z-Romero] 250 mg tablet 250 mg PO DAILY 5 Days Qty: 6 0RF Rx Instructions: Take 2 tablets day 1 ( 500 mg), then 250 mg daily from day 2-5 Interventions: ED Discharge Assessment Last Done: 01/30/24 23:32 Discharge Date/Time: 01/30/24 23:33 Print Language: Citizen Of [place]
--- NOTE | 2024-01-30 16:40 | ECG_ITS ---
Test Reason : SOB Blood Pressure : / mmHG Vent. Rate : 087 BPM Atrial Rate : 087 BPM P-R Int : 146 ms QRS Dur : 072 ms QT Int : 360 ms P-R-T Axes : 066 020 053 degrees QTc Int : 433 ms Normal sinus rhythm Normal ECG When compared with ECG of 23-JUN-2021 13:02, No significant change was found Referred By: Kayden Harris Electronically Signed By:JAYLEN MUJICA MD
[2024-01-30 17:23] LABS: MANUAL DIFF FLAG NO
[2024-01-30 17:26] LABS: Basophils Absolute Auto 0.1 X10*3/uL (0.0-0.2); Basophils Percent Auto 0.5 % (0-2); Eosinophils Absolute Auto 0.2 X10*3/uL (0.0-0.4); Hematocrit 47.5 % (37.0-47.0); Hemoglobin 15.9 g/dl (12.0-16.0); Imm Gran Abs Auto 0.06 X10*3/uL (0.00-0.03); Imm Gran Pct Auto 0.5 % (0.0-0.4); Lymphocytes Absolute Auto 2.8 X10*3/uL (1.2-4.9); Lymphocytes Percent Auto 23.5 % (20-40); Mean Corpuscular HGB Conc 33.5 g/dl (31.0-35.0); Mean Corpuscular Hemoglobin 29.8 pg (27.0-33.0); Monocytes Absolute Auto 0.4 X10*3/uL (0.1-1.2); Monocytes Percent Auto 3.6 % (2-11); Neutrophils Absolute Auto 8.4 x10*3/uL (2.0-8.3); Neutrophils Percent Auto 69.9 % (45-73); Platelet Count 239 X10*3/uL (160-400); Red Blood Count 5.34 X10*6/uL (4.20-5.50); White Blood Count 12.1 X10*3/uL (4.8-10.8)
[2024-01-30 17:31] LABS: INTERNATIONAL NORM RATIO 0.9 (0.9-1.1); Prothrombin Time 11.1 SEC (11.1-13.3)
[2024-01-30 17:33] LABS: Partial Thromboplastin Time 26.5 SEC (26.0-36.8)
[2024-01-30 17:46] LABS: Alanine Aminotransferase 20 U/L (0-31); Albumin Level 4.3 g/dL (3.5-5.0); Alkaline Phosphatase 77 U/L (39-117); Anion Gap 13 (12-20); Aspartate Amino Transferase 15 U/L (5-31); Bilirubin Total 0.3 mg/dL (0.0-1.0); Blood Urea Nitrogen 19 mg/dL (9-16); Calcium 9.8 mg/dL (8.4-10.2); Carbon Dioxide 24 mmol/L (22-29); Chloride 104 mmol/L (96-108); Creatinine Clr Calc Pharmacy 118.5; Estimated Glomerular Filt Rate > 60; Glucose Random 85 mg/dL (60-115); Lipase 11 U/L (8-78); Potassium 4.8 mmol/L (3.3-5.1); Sodium 136 mmol/L (135-145); Total Protein 7.4 g/dL (6.5-8.0)
[2024-01-30 18:04] LABS: Troponin-I High Sensitivity < 2.7 ng/L (<3.5-17.0)
[2024-01-30 20:52] VITALS: BP 97/49; PULSE 99; RESP 20; TEMP 36.6; O2SAT 98
[2024-01-30 22:26] VITALS: BP 108/65; PULSE 71; RESP 16; TEMP 36.2; O2SAT 95
[2024-01-30 23:32] VITALS: BP 108/65; PULSE 71; RESP 16; TEMP 36.2; O2SAT 95
== END 2024-01-30 23:33 | disposition home or self-care (01) ==
PROVIDERS: Physician Assistant; Emergency Provider Emergency Medicine; PCP Internal Medicine
DX: K59.00 Constipation, unspecified (principal); N39.0 Urinary tract infection, site not specified
CPT/HCPCS: 36415; 71045; 74018; 80053; 83690; 84484; 85025; 85610; 85730; 93005; 99283; 99284

== ENCOUNTER → 2024-01-30 16:40 | Outpatient (BNV) | payer MEDICAID, SELFPAY | PROVIDERS: Emergency Provider Emergency Medicine; PCP Internal Medicine; Visit Provider Internal Medicine Cardiovascular Disease | DX: R06.02 Shortness of breath (principal) | CPT/HCPCS: 93010 ==

== ENCOUNTER 2024-05-13 11:22 | Emergency (ER) | payer MEDICAID, SELFPAY ==
--- NOTE | ~2024-05-13 | XR_ITS ---
EXAMINATION: XR CHEST CLINICAL INFORMATION: Chest pain COMPARISON: Chest x-ray January 30, 2024 TECHNIQUE: 2 views of the chest were obtained. FINDINGS: Cardiac silhouette is normal in size. The lungs are well aerated. There is no lobar consolidation. No pleural effusion or pneumothorax. No acute osseous abnormality. XR/XR chest 2V IMPRESSION: No acute pulmonary pathology. Electronically signed by: Felton Jordan MD 05/13/2024 12:36 PM EDT
--- NOTE | 2024-05-13 11:23 | ECG_ITS ---
Test Reason : chest pain Blood Pressure : / mmHG Vent. Rate : 097 BPM Atrial Rate : 097 BPM P-R Int : 148 ms QRS Dur : 080 ms QT Int : 352 ms P-R-T Axes : 064 032 044 degrees QTc Int : 447 ms Normal sinus rhythm Normal ECG When compared with ECG of 30-JAN-2024 16:58, No significant change was found Referred By: Generic ED Physician Electronically Signed By:RACHNA BRAVO
--- NOTE | 2024-05-13 11:35 | ED.CHESTPAIN ---
HPI - Chest Pain General Chief Complaint: Chest Pain Stated Complaint: chest pain Time Seen by Provider: 05/13/24 13:43 Source: patient Mode of arrival: ambulatory Limitations: no limitations History of Present Illness ED Provider: Darby Olson PA-C HPI narrative: 48-year-old female with history of ADHD, depression, constipation, low back pain, history of pyelonephritis, who presents to the ER for evaluation of chest pain and tightness that started yesterday when she was in the car. She reports the day before she had pain in her entire left arm, worse with movement. No injury to the area. She reports she has a central pressure and tightness in her chest that has been constant since yesterday, it does not radiate to the arm. It is worse with deep breathing and movement. She has been coughing up yellow phlegm for the last several days. She continues to smoke cigarettes and marijuana. She reports pain with swallowing. She denies any fever or chills. She reports a diffuse rash and itching. She denies any swelling in her legs. She states she has history of a hiatal hernia and has daily episodes of projectile and forceful vomiting, that has been happening for months. She has been unable to get in with her GI doctor due to insurance issues. She denies any current abdominal pain. She reports a 5/10 pain in the center of her chest that is worse with palpation and movement. MD complaint: chest pain Onset (ago): day(s) (1) Timing of current episode: constant Prior episodes: Yes Onset: during rest Pain location: substernal Pain radiation: none Severity: moderate Quality: tightness Relieving factors: nothing Exacerbating factors: palpation and movement Associated symptoms: vomiting and cough Treatment prior to arrival: none Risk Factors Coronary artery disease risk factors: smoking history Thoracic aortic dissection risk factors: none Related Data Previous Rx's ?Medication ?Instructions ?Recorded azithromycin 250 mg tablet 250 mg PO DAILY 5 days #6 tabs 11/02/23 (Zithromax Z-Romero) polyethylene glycol 3350 17 gram 17 g PO BID #14 ea 01/30/24 oral powder packet sennosides 8.6 mg tablet (Senna 8.6 mg PO BID PRN constipation #14 01/30/24 Lax) tabs sulfamethoxazole 800 1 tab PO BID #10 tabs 01/30/24 mg-trimethoprim 160 mg tablet (Bactrim DS) azithromycin 250 mg tablet See Rx Instructions PO .COMPLEX #6 05/13/24 (Zithromax Z-Romero) tabs guaifenesin 1,200 mg tablet, 1,200 mg PO BID PRN congestion #20 05/13/24 extended release 12 hr (Mucus-ER tabs MAX) hydroxyzine HCl 25 mg tablet 25 mg PO TID PRN itching #14 tabs 05/13/24 pantoprazole 40 mg tablet,delayed 40 mg PO DAILY #30 tabs 05/13/24 release (Protonix) prednisone 20 mg tablet 40 mg (2 x 20 mg) PO DAILY #8 tabs 05/13/24 Allergies Allergy/AdvReac Type Severity Reaction Status Date / Time Penicillins Allergy Severe Anaphylaxis Verified 05/13/24 11:39 acetaminophen [From Tylenol] Allergy Intermediate Hives Verified 05/13/24 11:39 aspirin [ASPIRIN] Allergy Intermediate UNKNOWN Verified 05/13/24 11:39 gabapentin Allergy Intermediate Hives Verified 05/13/24 11:39 varenicline [From CHANTIX] Allergy Intermediate HIVES Verified 05/13/24 11:39 ibuprofen Allergy Anaphylaxis Verified 05/13/24 11:39 lurasidone [From Latuda] Allergy Unknown Verified 05/13/24 11:39 Bees Allergy Intermediate Anaphylaxis Uncoded 01/30/24 16:37 cefuroxime Allergy Mild Itching Uncoded 01/30/24 16:37 Review of Systems Review of Systems: Yes all other systems are reviewed and are negative PMFSH Past Medical History Medical History Hiatal hernia Depression Anxiety Surgical History S/P tonsillectomy H/O: hysterectomy Family History Family History Other Adopted Social History Social History Household Members: Significant Other Housing: Apartment Alcohol intake: never Patient Tobacco Use Status: Current everyday Tobacco user Cigarettes Per Day: 10 Years Smoked: 26 Smoked in Last 30 Days: Yes Use of substances other than those prescribed or required for medical reasons: Yes Substance Use Type: Marijuana Advance Directives: No Advance Directives Information Provided: No Do you have a plan to hurt others: No Plan Patient : No service: No Current occupational status: unemployed Sexual orientation: Straight/Heterosexual Gender identity: Female Cognitive needs: No Hearing needs: No Vision needs: No Physical Exam Vital Signs: Vital Signs: Last Vital Signs Temp 98.3 F 05/13/24 14:37 Pulse 85 05/13/24 14:37 Resp 17 05/13/24 14:37 BP 124/80 05/13/24 14:37 Pulse Ox 94 05/13/24 14:37 O2 Del Method Room Air 05/13/24 14:37 BMI result Body Mass Index 31.5 Appearance: Alert. Oriented X3. No acute distress. Head: normocephalic, atraumatic. Eyes: Pupils equal, round and reactive to light. ENT: Pharynx normal. No tonsillar swelling or exudate. Neck: Normal inspection. Neck supple. CVS: Normal heart rate and rhythm. Pulses normal. Respiratory: No respiratory distress. Breath sounds normal. Diffuse anterior chest wall tenderness, mostly in the parasternal region Abdomen: Soft and nontender. +BS x4 Skin: Skin warm and dry. Normal skin color. Normal skin turgor. Scattered erythematous, maculopapular rash on the upper extremities with excoriation. Extremities: No lower extremity edema. No joint swelling. Negative Homans sign. Neuro/psych: Oriented X 3. No motor deficit. No sensory deficit. CN II-XII intact. Normal speech and cognition. Course Course Course Narrative: This is an RME performed by Reg Scott CNP: Additional HPI, ROS, PE not included below will be deferred to primary provider. Patient is a 48-year-old female who presents emergency department for evaluation of chest pain, onset was last night, uncertain whether this is secondary to anxiety admits to a lot of stress. States diffuse left body pain x1 month. Nausea and vomiting 4 times yesterday, twice today, denies constipation or diarrhea. States difficulty swallowing, no pain, like I forgot how to swallow, I have to rub my throat . Plan: Serum Labs, EKG, CXR, viral panel Medications Administered Discontinued Medications Generic Name Dose Route Start Last Admin Trade Name Freq PRN Reason Stop Dose Admin Guaifenesin 1,200 mg 05/13/24 13:57 05/13/24 14:34 Guaifenesin La 600 Mg Tab.Er.12h PO 05/13/24 13:58 1,200 mg ONCE ONE Administration Hydroxyzine HCl 25 mg 05/13/24 13:57 05/13/24 14:34 Hydroxyzine Hcl 25 Mg Tablet PO 05/13/24 13:58 25 mg ONCE ONE Administration Omeprazole 40 mg 05/13/24 13:57 05/13/24 14:34 Omeprazole 40 Mg Capsule.Dr PO 05/13/24 13:58 40 mg ONCE ONE Administration Prednisone 40 mg 05/13/24 13:58 05/13/24 14:34 Prednisone 20 Mg Tablet PO 05/13/24 13:59 40 mg ONCE ONE Administration Medical Decision Making Medical Decision Making [facility] Narrative: 48-year-old female with a history of anxiety and depression, hiatal hernia, active smoker who presents to the ER for evaluation of essential chest pain and pressure that started last night when she was in a car. It has been constant, worse when lying flat, palpation, movement. She also has been coughing up yellow phlegm. She reports increased life stressors and anxiety at home. On arrival to the ER she is hemodynamically stable and afebrile. She has diffuse chest wall tenderness throughout which is reassuring against any acute cardiac process. Her EKG is unremarkable and her troponin is negative. Her chest x-ray is clear. She reports almost daily vomiting episodes that are not preceded by nausea. No abdominal pain. History of hiatal hernia. She needs to be seen by GI. Unclear if some of this pain is due to untreated GERD and her hiatal hernia. Will start her on PPI and dietary modifications. Will give GI referral. Will start her on treatment for acute bronchitis and costochondritis. She has follow-up with the primary care doctor. At this time she is stable for discharge home. Return precautions were discussed. Differential Diagnosis Differential Diagnoses: The differential diagnosis associated with the presentation includes Costochondritis, pneumonia, bronchitis, ACS, PE, myocarditis, pericarditis, hiatal hernia, GERD Admission/Observation Consideration of admission/observation: Escalation of care including admission/observation considered Lab Data [facility] Lab Attestation statement: I reviewed the patient's lab results. No leukocytosis, no anemia, normal renal function, negative troponin 05/13/24 11:48 05/13/24 11:49 Labs: Lab Results 05/13/24 05/13/24 05/13/24 Range/Units 11:48 11:49 12:14 WBC 5.9 (4.8-10.8) X10*3/uL RBC 5.01 (4.20-5.50) X10*6/uL Hgb 14.2 (12.0-16.0) g/dl Hct 42.0 (37.0-47.0) % MCV 83.8 (80.0-98.0) fL MCH 28.3 (27.0-33.0) pg MCHC 33.8 (31.0-35.0) g/dl RDW 13.2 (11.0-16.0) % Plt Count TNP MPV TNP Immature Gran % (Auto) 0.7 H (0.0-0.4) % Neut % (Auto) 56.4 (45-73) % Lymph % (Auto) 30.2 (20-40) % [place] % (Auto) 8.9 (2-11) % Eos % (Auto) 3.1 (0-4) % Baso % (Auto) 0.7 (0-2) % Lymph # (Auto) 1.8 (1.2-4.9) X10*3/uL [place] # (Auto) 0.5 (0.1-1.2) X10*3/uL Eos # (Auto) 0.2 (0.0-0.4) X10*3/uL Baso # (Auto) 0.0 (0.0-0.2) X10*3/uL Abs Immat Gran (auto) 0.04 H (0.00-0.03) X10*3/uL Absolute Neuts (auto) 3.3 (2.0-8.3) x10*3/uL Absolute Nucleated RBC 0.000 (0.0-0.012) X10*3/uL Nucleated RBC % (auto) 0.0 (0.0-0.2) /100WBC Smear Tech's Comments VERIFIED PT 11.2 (11.1-13.3) SEC INR 0.9 (0.9-1.1) Sodium 135 (135-145) mmol/L Potassium 3.6 D (3.3-5.1) mmol/L Chloride 98 (96-108) mmol/L Carbon Dioxide 26 (22-29) mmol/L Anion Gap 15 (12-20) BUN 19 H (9-16) mg/dL Creatinine 0.65 (0.5-1.4) mg/dL Estim Creat Clear Calc 117.0 Estimated GFR > 60 Random Glucose 122 H (60-115) mg/dL Calcium 9.7 (8.4-10.2) mg/dL Magnesium 2.0 (1.6-2.6) mg/dL Total Bilirubin 0.3 (0.0-1.0) mg/dL AST 27 (5-31) U/L ALT 29 (0-31) U/L Alkaline Phosphatase 85 (39-117) U/L Troponin I High Sens < 2.7 (<3.5-17.0) ng/L Total Protein 7.2 (6.5-8.0) g/dL Albumin 3.9 (3.5-5.0) g/dL Lipase 12 (8-78) U/L Urine Color Yellow Urine Appearance Cloudy Urine pH 7.5 (5.0-9.0) Ur Specific [place] 1.020 (1.005-1.025) Urine Protein Negative (Neg-Trace) mg/dL Urine Glucose (UA) Negative (Negative) mg/dL Urine Ketones Negative (Negative) mg/dL Urine Blood Negative (Negative) Urine Nitrite Negative (Negative) Ur Leukocyte Esterase Moderate (2+) H (Negative) Urine RBC 0-2 (0-2) /HPF Urine WBC 6-10 H (0-5) /HPF Ur Squamous Epith Cells 11-20 (0-2) /HPF Urine Bacteria 1+ (None Seen) Hyaline Casts 0-2 (0-2) /LPF Urine Test NEGATIVE (NEGATIVE) Influenza Type A (PCR) NEGATIVE (Negative) Influenza Type B (PCR) NEGATIVE (Negative) RSV RNA Qual (PCR) NEGATIVE (Negative) SARS-CoV-2 RNA (RT-PCR) NEGATIVE (Negative) Independent Interpretation I performed an independent interpretation of an: EKG and Plain X-Ray Interpretation: Chest x-ray was clear with no focal infiltration or effusion EKG with normal sinus rhythm, ventricular rate 97 beats per minute, normal CT interval, no ST elevations or depressions prior no change from [facility] Impression Discussion of test interpretation with radiology: I have reviewed the radiologist's reading. Radiologist Impression: XR/XR chest 2V IMPRESSION: No acute pulmonary pathology. External Record Review External record reviewed: Outpatient record, Prior outpatient labs and Prior outpatient radiology Tests considered The following testing was considered but not selected: CT angiogram was considered however low clinical suspicion for pulmonary embolism Prescription Management I considered prescription management with: Pain Medication and Antibiotic Chronic Conditions Patient?s care impacted by: Other (Anxiety, smoking) Social Determinants Patient?s care significantly limited by Social Determinants of Health including: Other Social Determinant of Health (No access to PCP due to insurance changes) Critical Care Time Critical Care Time Critical Care Time: No Discharge Plan Discharge Clinical Impression: Atypical chest pain, Bronchitis, Acute costochondritis Patient Disposition: Home, Self-Care Instructions: Acute Bronchitis (ED), Chest Wall Pain (ED) Additional Instructions: Your lab workup was reassuring today. Your heart enzyme was negative. Your EKG was normal. Your chest x-ray was clear. Take the prescribed antibiotics as directed for acute bronchitis, complete the entire course and do not miss any doses Do your best to quit smoking. Take the prescribed prednisone as directed to help inflammation in your chest, this should help with the pain. Take the 1st dose tomorrow morning as your given 1st dose today in the ER. Recommend taking Tylenol 1000 mg every 6 hours for the next 2-3 days. Rest and drink plenty of fluids. Follow-up with a receiving weigher for further evaluation and treatment of your vomiting. Name and number below. Call for an appointment. Prescriptions: New prednisone 20 mg tablet 40 mg PO DAILY Qty: 8 0RF azithromycin [Zithromax Z-Romero] 250 mg tablet See Rx Instructions PO .COMPLEX Qty: 6 0RF Rx Instructions: take 500 mg today (day 1), then 250 mg for 4 days (days 2-5) pantoprazole [Protonix] 40 mg tablet,delayed release (DR/EC) 40 mg PO DAILY Qty: 30 0RF guaifenesin [Mucus-ER MAX] 1,200 mg tablet extended release 12hr 1,200 mg PO BID PRN (Reason: congestion) Qty: 20 0RF hydroxyzine HCl 25 mg tablet 25 mg PO TID PRN (Reason: itching) Qty: 14 0RF No Action sennosides [Senna Lax] 8.6 mg tablet 8.6 mg PO BID PRN (Reason: constipation) Qty: 14 0RF polyethylene glycol 3350 17 gram powder in packet 17 g PO BID Qty: 14 0RF sulfamethoxazole-trimethoprim [Bactrim DS] 800-160 mg tablet 1 tab PO BID Qty: 10 0RF azithromycin [Zithromax Z-Romero] 250 mg tablet 250 mg PO DAILY 5 Days Qty: 6 0RF Rx Instructions: Take 2 tablets day 1 ( 500 mg), then 250 mg daily from day 2-5 [place] [facility] [place] [facility] [place]] (Forceful, recurrent vomiting) Sonal Pack MD [Primary Care Provider] - Interventions: ED Discharge Assessment Last Done: 05/13/24 14:37 Discharge Date/Time: 05/13/24 14:37 Print Language: Macedonian
[2024-05-13 11:38] VITALS: BP 110/75; PULSE 101; RESP 20; TEMP 36.9; O2SAT 97; BMI 31.5
[2024-05-13 11:59] LABS: Basophils Percent Auto 0.7 % (0-2); Eosinophils Absolute Auto 0.2 X10*3/uL (0.0-0.4); Eosinophils Percent Auto 3.1 % (0-4); Hemoglobin 14.2 g/dl (12.0-16.0); Imm Gran Abs Auto 0.04 X10*3/uL (0.00-0.03); Imm Gran Pct Auto 0.7 % (0.0-0.4); Lymphocytes Absolute Auto 1.8 X10*3/uL (1.2-4.9); Lymphocytes Percent Auto 30.2 % (20-40); MANUAL DIFF FLAG SCAN; Mean Corpuscular HGB Conc 33.8 g/dl (31.0-35.0); Mean Corpuscular Hemoglobin 28.3 pg (27.0-33.0); Mean Corpuscular Volume 83.8 fL (80.0-98.0); Monocytes Absolute Auto 0.5 X10*3/uL (0.1-1.2); Monocytes Percent Auto 8.9 % (2-11); Neutrophils Absolute Auto 3.3 x10*3/uL (2.0-8.3); Neutrophils Percent Auto 56.4 % (45-73); PLT CLUMP 1; Red Blood Count 5.01 X10*6/uL (4.20-5.50); Red Cell Distribution Width 13.2 % (11.0-16.0); SCAN SMEAR FLAG 1
[2024-05-13 12:01] LABS: INTERNATIONAL NORM RATIO 0.9 (0.9-1.1); Prothrombin Time 11.2 SEC (11.1-13.3)
[2024-05-13 12:14] LABS: Alanine Aminotransferase 29 U/L (0-31); Albumin Level 3.9 g/dL (3.5-5.0); Alkaline Phosphatase 85 U/L (39-117); Anion Gap 15 (12-20); Aspartate Amino Transferase 27 U/L (5-31); Bilirubin Total 0.3 mg/dL (0.0-1.0); Blood Urea Nitrogen 19 mg/dL (9-16); Calcium 9.7 mg/dL (8.4-10.2); Carbon Dioxide 26 mmol/L (22-29); Chloride 98 mmol/L (96-108); Estimated Glomerular Filt Rate > 60; Glucose Random 122 mg/dL (60-115); Lipase 12 U/L (8-78); Potassium 3.6 mmol/L (3.3-5.1); Sodium 135 mmol/L (135-145); Total Protein 7.2 g/dL (6.5-8.0)
[2024-05-13 12:15] LABS: White Blood Count 5.9 X10*3/uL (4.8-10.8)
[2024-05-13 12:21] LABS: Troponin-I High Sensitivity < 2.7 ng/L (<3.5-17.0)
[2024-05-13 12:21] LABS: Appearance Urine Cloudy; Color Urine Yellow; Glucose Urine UA Negative (Negative); Leukocyte Esterase Urine Moderate (2+) (Negative); Nitrite Urine Negative (Negative); PH 7.5 (5.0-9.0); UMIC TRIGGER UACC YES; UPreg QC Valid YES; Urine Blood Negative (Negative); Urine Ketones Negative (Negative); Urine Pregnancy NEGATIVE (NEGATIVE); Urine Protein Negative (Neg-Trace)
[2024-05-13 12:29] LABS: Bacteria Urine 1+ (None Seen); Hyaline Casts Urine 0-2 /LPF (0-2); RBC Urine 0-2 /HPF (0-2); UACC Culture Trigger YES
[2024-05-13 12:32] LABS: Influenza A PCR NEGATIVE (Negative); Influenza B PCR NEGATIVE (Negative); Resp Syncy Virus RNA Qual PCR NEGATIVE (Negative); SARS COV2 PCR INHOUSE NEGATIVE (Negative)
[2024-05-13 12:55] LABS: SLIDE REVIEW VERIFIED
[2024-05-13 13:15] VITALS: BP 124/80; PULSE 85; RESP 17; TEMP 36.8; O2SAT 94
[2024-05-13] MEDS: predniSONE 20 MG TABLET 40 MG PO (14:34)
[2024-05-13] MEDS: guaiFENesin LA 600 MG TAB.ER.12H 1200 MG PO (14:34)
[2024-05-13] MEDS: hydrOXYzine HCL 25 MG TABLET PO (14:34)
[2024-05-13] MEDS: Omeprazole 40 MG CAPSULE.DR PO (14:34)
[2024-05-13 14:37] VITALS: BP 124/80; PULSE 85; RESP 17; TEMP 36.8; O2SAT 94
--- NOTE | 2024-05-13 14:37 | PC.NURSE ---
pt medicated per provider order.
[2024-05-13 14:54] LABS: IDNOW Serial# 08D9AD1C; Strep A Nucleic Acid Negative (Negative)
[2024-05-16 07:39] LABS: Lyme Abs Screen <0.90 index
[2024-05-16 23:03] LABS: A. Phagocytphilium DNA,RT-PCR NOT DETECTED (NOT DETECTED); Babesia Microti DNA, RT-PCR NOT DETECTED (NOT DETECTED); Borrelia Miyamotoi,DNA RT-PCR NOT DETECTED (NOT DETECTED); E.Chaffeensis DNA RT-PCR NOT DETECTED (NOT DETECTED); Lyme(Borrelia ssp)DNA RT-PCR NOT DETECTED (NOT DETECTED)
== END 2024-05-13 14:37 | disposition home or self-care (01) ==
PROVIDERS: Nurse Practitioner Family; Physician Assistant; Emergency Provider Emergency Medicine; PCP Internal Medicine
DX: R07.89 Other chest pain (principal); J40 Bronchitis, not specified as acute or chronic; M94.0 Chondrocostal junction syndrome [Tietze]; R05.9 Cough, unspecified; Z03.818 Encounter for observation for suspected exposure to other biological agents ruled out; F41.9 Anxiety disorder, unspecified; F17.210 Nicotine dependence, cigarettes, uncomplicated; F12.90 Cannabis use, unspecified, uncomplicated; Z79.899 Other long term (current) drug therapy
CPT/HCPCS: 0241U; 36415; 71046; 80053; 81001; 81025; 83690; 83735; 84484; 85025; 85610; 86617; 86618; 87086; 87468; 87469; 87478; 87484; 87651; 87798; 93005; 99283; 99285

== ENCOUNTER 2024-09-01 11:26 | Outpatient (REF) | payer MEDICAID, SELFPAY ==
[2024-09-01 13:40] LABS: Blood Urea Nitrogen 21 mg/dL (9-16); Estimated Glomerular Filt Rate > 60
[2024-09-01 13:59] LABS: Folate 7.2 ng/mL (> or = 4.0); Vitamin B12 691 pg/mL (200-900)
[2024-09-04 16:38] LABS: Transglutaminase IgA <1.0 U/mL
[2024-09-09 13:34] LABS: Vitamin D 25-OH, D2 <4 ng/mL; Vitamin D 25-OH, D3 17 ng/mL; Vitamin D 25-OH, Total 17 ng/mL (30-100)
== END 2024-09-01 11:27 | disposition home or self-care (01) ==
LOC: HO.LAB 11:26
PROVIDERS: PCP Internal Medicine; Visit Provider Nurse Practitioner Family
DX: E55.9 Vitamin D deficiency, unspecified (principal); R19.7 Diarrhea, unspecified; R10.11 Right upper quadrant pain; R10.9 Unspecified abdominal pain; K59.01 Slow transit constipation; R11.2 Nausea with vomiting, unspecified; R10.13 Epigastric pain; R14.0 Abdominal distension (gaseous)
CPT/HCPCS: 36415; 82306; 82565; 82607; 82746; 84443; 84520; 86364; 99202

== ENCOUNTER 2024-09-01 11:26 | Outpatient (AMB) | payer OTHER, SELFPAY ==
[2024-09-01 11:29] VITALS: BP 118/60; PULSE 114; O2SAT 99; BMI 31.9
--- NOTE | 2024-09-01 11:29 | MHC.OFFVIS ---
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 Intake Note: NEW PATIENT Reason; Initial visit / Consult Prior hx of colo/egd? Pt reports prior hx of both, ~ 4 years ago via [facility]. Concerns/Questions? 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 Abd pain generalized (06/08 frequently), reflux, N/V, moderate to severe const. 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: No Allergies Penicillins Allergy (Severe, Verified 09/01/24 11:31) Anaphylaxis acetaminophen [From Tylenol] Allergy (Intermediate, Verified 09/01/24 11:31) Hives aspirin [ASPIRIN] Allergy (Intermediate, Verified 09/01/24 11:31) UNKNOWN gabapentin Allergy (Intermediate, Verified 09/01/24 11:31) Hives varenicline [From CHANTIX] Allergy (Intermediate, Verified 09/01/24 11:31) HIVES ibuprofen Allergy (Verified 09/01/24 11:31) Anaphylaxis lurasidone [From Latuda] Allergy (Verified 09/01/24 11:31) Unknown Bees Allergy (Intermediate, Uncoded 01/30/24 16:37) Anaphylaxis cefuroxime Allergy (Mild, Uncoded 01/30/24 16:37) Itching HPI HPI 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 Epigastric pain, abdominal bloating and pain throughout the whole abdomen for the past 4 months. Patient feels like the pain is getting worse. Patient is having trouble moving her bowels when she does she reports that only small kt like stools. Patient denies melena, hematochezia, unintentional weight loss or ribbon like stools. Epigastric pain postprandially no matter what she eats. Patient reports also abdominal bloating. Patient reports that sometimes pain is excruciating cramping like pain and stabbing patient reports that her last colonoscopy was about 4 years ago at [facility]. We will try to get inflammation. Patient reports feeling nauseous and epigastric pain so bad that sometimes she experiences vomiting. PFSH Medical History (Updated 09/01/24 @ 12:10 by Grecia Baer [facility]) Cervical cancer Badillo's esophagus Encounter for screening colonoscopy (~2019) Hiatal hernia Depression Anxiety Surgical History (Updated 09/01/24 @ 11:39 by LE Booker) H/O endoscopy (~2019) S/P tonsillectomy H/O: hysterectomy (~1999) Family History Other Adopted Social History Household Members: Significant Other Housing: Apartment Alcohol intake: never Patient Tobacco Use Status: Current everyday Tobacco user Cigarettes Per Day: 10 Years Smoked: 26 Substance Use Type: Marijuana service: No Current occupational status: unemployed Sexual orientation: Straight/Heterosexual Gender identity: Female Cognitive needs: No Hearing needs: No Vision needs: No Review of Systems Const Denies weight gain and Denies weight loss ENT Reports no additional complaints, Denies dysphagia and Denies odynophagia Card Reports no additional complaints Resp Reports no additional complaints GI Reports abdominal pain, Denies belching, Denies melena, Reports bloating, Denies change in bowel habits, Reports constipation, Denies dysphagia, Denies excessive flatus, Denies dyspepsia, Reports heartburn, Denies diarrhea, Denies loose stools, Reports nausea, Denies odynophagia and Reports vomiting Musc Reports no additional complaints Neuro Reports no additional complaints Psych Reports no additional complaints Endo Reports no additional complaints Physical Exam Const General: healthy appearing and no acute distress Nutritional Appearance: obese Orientation/consciousness: patient oriented x3 Resp Effort & Inspection: normal respiratory effort, able to speak in complete sentences, no tracheal deviation and symmetric chest movement Auscultation: clear to auscultation bilaterally Cardio Rate: regular rate GI Inspection: Yes normal to inspection and No distended Palpation (GI): Soft to palpation, not firm, nontender and No hepatosplenomegaly present Auscultation: normal bowel sounds General: Yes no CVA tenderness Back/Spine/Pelvis Back: no CVA tenderness Skin General skin exam: elasticity normal, turgor normal and dry skin Neuro General: patient oriented x3 Psych Appearance: grossly normal Mental Status: mental status grossly normal Assessment & Plan Assessment & Plan (1) Constipation: Code(s): K59.00 - Constipation, unspecified Category: Medical Qualifiers: Constipation type: slow transit constipation Qualified Code(s): K59.01 - Slow transit constipation (2) Vomiting: Code(s): R11.10 - Vomiting, unspecified Category: Medical Qualifiers: Nausea presence: with nausea Vomiting type: unspecified Qualified Code(s): R11.2 - Nausea with vomiting, unspecified (3) Postprandial epigastric pain: Code(s): R10.13 - Epigastric pain (4) Postprandial abdominal bloating: Code(s): R14.0 - Abdominal distension (gaseous) Plan Will check thyroid, vitamin B12, folate, vitamin-D level. Patient will be sent for CT scan with oral and IV contrast. Abdominal pain and tenderness in the middle of the abdomen and left lower quadrant rule out diverticulitis. We will rule out celiac postprandial epigastric pain patient will be started on Nexium daily. Avoid dietary triggers and late night snacking. Staying upright for minimum 3 hours after meals discussed with patient. Patient will start Linzess. Patient tried agiz-akn-phdccsn laxatives as well as suppositories without any help. Patient was also encouraged to increase fluid intake and activity to promote better bowel motility. Follow-up in 3 weeks, sooner on as needed basis. She is agreeable to this plan and verbalizes understanding of instructions. She was given the opportunity to ask questions and all questions answered. Thank you for allowing me to participate in her care Orders: Orders TSH reflex Free T4 Today K59.00 - Constipation, unspecified Vitamin B12 and Folate Today R19.7 - Diarrhea, unspecified Vitamin D 25-OH (D2 and D3) Today E55.9 - Vitamin D deficiency, unspecified Creatinine Today R10.11 - Right upper quadrant pain CT abdomen pelvis w IV con Today R10.9 - Unspecified abdominal pain Transglutaminase IgA Today R10.9 - Unspecified abdominal pain Blood Urea Nitrogen Today R10.11 - Right upper quadrant pain Medications: New linaclotide (Linzess) 145 mcg PO DAILY 30 caps 4RF K59.04 - Chronic idiopathic constipation esomeprazole magnesium (Nexium) 40 mg PO DAILY 30 caps 5RF K21.9 - Gastro-esophageal reflux disease without esophagitis Coding Level of Care Code New Pt Level 4 (71134) Diagnoses Slow transit constipation K59.01 Constipation type: slow transit constipation Nausea and vomiting, unspecified vomiting type R11.2 Nausea presence: with nausea Vomiting type: unspecified Postprandial epigastric pain R10.13 Postprandial abdominal bloating R14.0 Time Spent (min) 45 Comment 30 minutes spent with patient and additional 15 minutes spent reviewing her records
== END 2024-09-01 12:17 | disposition home or self-care (01) ==
PROVIDERS: PCP Internal Medicine; Visit Provider Nurse Practitioner Family
DX: K59.01 Slow transit constipation (principal); R11.2 Nausea with vomiting, unspecified; R10.13 Epigastric pain; R14.0 Abdominal distension (gaseous)
CPT/HCPCS: 99204

== ENCOUNTER 2024-09-18 11:58 | Outpatient (REF) | payer OTHER, SELFPAY ==
--- NOTE | ~2024-09-18 | CT_ITS ---
EXAMINATION: CT ABDOMEN AND PELVIS WITH CONTRAST CLINICAL INFORMATION: Abdominal pain. COMPARISON: CT abdomen pelvis 10/25/2022 TECHNIQUE: Multidetector volumetric images were obtained from the superior aspect of the liver through the pubic symphysis following administration 85 mL of Omnipaque 350 intravenous and 900 mL oral contrast. Sagittal and coronal reformatted images were obtained on the technologist's workstation. Oral contrast: No. DLP [address] examination was performed using dose optimization techniques as appropriate, variously including the following: *Automated exposure control *Adjustment of mA and/or kV according to patient size (this includes techniques or standardized protocols for targeted exams where dose is matched to indication/reason for exam; i.e. extremities or head) *Use of iterative reconstruction technique FINDINGS: LUNG BASES: The visualized lung bases are unremarkable. LIVER, GALLBLADDER, AND BILIARY TREE: The liver is normal in size, shape, and attenuation. No focal hepatic lesion or biliary ductal dilatation is present. The gallbladder is unremarkable with no evidence of radiopaque gallstones, gallbladder wall thickening, or obvious pericholecystic inflammatory changes. PANCREAS: Spleen measures 13 cm and borderline normal. No focal lesion seen. ADRENAL GLANDS: Unremarkable. KIDNEYS AND URETERS: The kidneys are normal in size, shape, and attenuation. No hydronephrosis, hydroureter, or calculi seen. No perinephric stranding. BLADDER: Unremarkable. GASTROINTESTINAL TRACT: Oral contrast seen throughout the colon, small bowel loops without distention. There is mild constipation. Appendix is normal caliber. Stomach is nondistended. ABDOMINAL WALL: No significant hernia is appreciated. LYMPH NODES: Normal. VASCULAR: Unremarkable. PELVIC VISCERA: Unremarkable. OSSEOUS STRUCTURES: Mild degenerative disc changes at L4-5 disc level. No aggressive lytic or sclerotic process seen. CT/CT abdomen pelvis w IV con IMPRESSION: No acute intra-abdominal process seen. No major change from previous study CT abdomen and pelvis exam 10/25/2022 Fleischner guidelines were followed. Electronically signed by: Gregorio Cevallos MD 09/18/2024 02:51 PM EST
[2024-09-18] MEDS: Barium Sulfate Oral (Berry) 450 ML ORAL.SUSP 900 ML PO (14:11)
[2024-09-18] MEDS: iohexoL 350 MG/ML 100 ML INFUS..BTL 85 ML IV (14:11)
== END 2024-09-18 11:59 | disposition home or self-care (01) ==
LOC: HO.CT 11:58
PROVIDERS: PCP Internal Medicine; Visit Provider Nurse Practitioner Family
DX: R10.9 Unspecified abdominal pain (principal)
CPT/HCPCS: 74177; Q9967

== ENCOUNTER → 2024-09-18 12:01 | Outpatient (BNV) | payer OTHER, SELFPAY | PROVIDERS: PCP Internal Medicine; Visit Provider Radiology Diagnostic Radiology | DX: R10.9 Unspecified abdominal pain (principal) | CPT/HCPCS: 74177 ==

== ENCOUNTER 2024-09-21 13:20 | Outpatient (AMB) | payer OTHER, SELFPAY ==
--- NOTE | 2024-09-21 13:25 | MHC.PC.OV ---
Vital Signs 09/21/24 13:26 Height 5 ft 5 in Weight 186 lb 6 oz BMI 31.0 BP 120/78 Blood Pressure Location Lt brachial Position Sitting Pulse 109 H Pulse Source Pulse Oximeter Temp 97.1 F Temp Source Skin Pulse Oximetry (%) 97 Oxygen Delivery Method Room Air Intake Visit Reasons: Establish Care Intake Note: Patient is here today for YOSELIN from [facility]. Pt decline flu shot today. 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 Accompanied by: Spouse Allergies Penicillins Allergy (Severe, Verified 09/21/24 13:44) Anaphylaxis acetaminophen [From Tylenol] Allergy (Intermediate, Verified 09/21/24 13:44) Hives aspirin [ASPIRIN] Allergy (Intermediate, Verified 09/21/24 13:44) UNKNOWN gabapentin Allergy (Intermediate, Verified 09/21/24 13:44) Hives varenicline [From CHANTIX] Allergy (Intermediate, Verified 09/21/24 13:44) HIVES ibuprofen Allergy (Verified 09/21/24 13:44) Anaphylaxis lurasidone [From Latuda] Allergy (Verified 09/21/24 13:44) Unknown Bees Allergy (Intermediate, Uncoded 09/21/24 13:44) Anaphylaxis cefuroxime Allergy (Mild, Uncoded 09/21/24 13:44) Itching Medication List - Last Reconciled 09/21/24 by Dali Nugent PA-C aripiprazole 10 mg PO DAILY cholecalciferol (vitamin D3) 125 mcg PO DAILY clonazepam 1 mg PO BID PRN dextroamphetamine-amphetamine 15 mg 1 tab PO BID esomeprazole magnesium (Nexium) 40 mg PO DAILY linaclotide (Linzess) 145 mcg PO DAILY venlafaxine ER 75 mg PO QAM Tobacco use date assessed: 09/21/24 Dental Screening Dental Screen Date: 09/21/24 Did you have a dental visit in the last 12 months?: No Did you have a dental problem in the last 6 months where you did not have access to dental care?: No Was dental information given to patient?: No HPI Establish Care HPI Details 49-year-old female with past medical history of ADHD, constipation coming to the office for the 1st time.? In review of the notes, patient was seen by [facility] 09/01/2024 for abdominal bloating, constipation and pain for 4 months blood work ordered along with CT and started on Nexium daily and follow up in [address].?[address] scan completed 09/18/2024 showing no acute intra-abdominal process and no change since last CT in 2022. Patient tells us today she was previously being seen by nurse practitioner in our office many years ago but had an issue with her insurance. She has a history of Chiari malformation and was previously being seen by a neurologist for her headaches but has not been seen in many years. She follows with gynecology through [facility]. Her last colonoscopy was 3 years ago with [facility]. Today she tells us she we will occasionally have episodes where she will feel lightheaded and dizzy, palm sweating and then blackout. Her most recent episode was several weeks ago in the bathroom. She identifies anxiety and heat as triggers for these episodes. Denies any chest pains or shortness of breath with and without these episodes. She does mentioned she does not drink enough water because when she drinks too much water she will vomit. She also mentions having numbness and tingling in bilateral toes that feels like pins and needles. [facility] Medical History (Updated 09/21/24 @ 14:59 by Dali Nugent PA-C) Tongue swelling Vomiting Trichomonas infection Cervical cancer Badillo's esophagus Encounter for screening colonoscopy (~2019) Hiatal hernia Depression Anxiety Surgical History H/O endoscopy (~2019) S/P tonsillectomy H/O: hysterectomy (~1999) Family History Other Adopted Social History Household Members: Significant Other Housing: Apartment Alcohol intake: never Patient Tobacco Use Status: Former Tobacco user Tobacco use type: Cigarette Cigarette Packs Per Day: 0.5 Cigarettes Per Day: 10 Years Smoked: 26 e-Cigarette/Vaping Use: Never Used Second Hand Smoke Exposure: Yes Substance Use Type: Marijuana service: No Current occupational status: unemployed Sexual orientation: Straight/Heterosexual Gender identity: Female Cognitive needs: No Hearing needs: No Vision needs: No Female Reproductive History Menstrual control method: permanent sterilization (hysterectomy ) Questionnaire PHQ-9 Over the last 2 weeks, how often have you been bothered by any of the following problems? 1. Little interest or pleasure in doing things: more than half the days 2. Feeling down, depressed, or hopeless: not at all 3. Trouble falling or staying asleep, or sleeping too much: more than half the days 4. Feeling tired or having little energy: nearly every day 5. Poor appetite or overeating: more than half the days 6. Feeling bad about yourself - or that you are a failure or have let yourself or your family down: not at all 7. Trouble concentrating on things, such as reading the newspaper or watching television: not at all 8. Moving or speaking so slowly that other people could have noticed. Or the opposite - being so fidgety or restless that you have been moving around a lot more than usual: not at all 9. Thoughts that you would be better off or of hurting yourself in some way: not at all Total score: 9 Depression Screening Interpretation: Positive Depression Screening Follow-up: Existing condition and In treatment Depression Screening Done: Yes Source: Developed by Drs. Oib Eden, Danitza Funk, Jose Guadalupe Sweeney and colleagues, with an educational jennifer from [employer]. Thrive Questionnaire Date Thrive assessed: 09/21/24 I am a: Patient What is your living situation today?: I have a steady place to live Within the past 12 months, did the food you bought not last and you didn't have the money to get more?: Sometimes True Within the past 12 months, did you worry whether your food would run out before you got money to buy more?: I choose not to answer this question Do you have trouble paying for medicines?: No Do you have trouble getting transportation to medical appointments?: No Do you have trouble paying your heating and electricity bill?: No Do you have trouble taking care of your child, family member or friend?: No Do you have trouble with day-to-day activities such as bathing, preparing meals, shopping, managing finances, etc.?: Yes Are you currently unemployed and looking for a job?: No Are you interested in more education?: No Please select the resources that you would like help with: None Currently or been in a relationship where the following occur: No concerns reported THRIVE Score: 1 AUDIT C Alcohol Use Questionnaire (AUDIT-C) 1. How often do you have a drink containing alcohol?: Never Total Score: 0 JOVITA-7 AMB Questionnaire JOVITA-7 Date JOVITA - 7 assessed: 09/21/24 Feeling nervous, anxious, or on edge: 2 = More than half the days Not being able to stop or control worryin = Not at all Worrying too much about different things: 0 = Not at all Trouble relaxin = Not at all Being so restless that it is hard to sit still: 0 = Not at all Becoming easily annoyed or irritable: 2 = More than half the days Feeling afraid as if something awful might happen: 0 = Not at all Total JOVITA-7 score (0-4 normal; 5-9 mild; 10-14 moderate; 15-21 severe): 4 Source: Developed by Drs. Obi Eden, Danitza Funk, Jose Guadalupe Sweeney and colleagues, with an educational jennifer from [employer]. JOVITA-7 Assessment Billing JOVITA-7 Assessment Tool: JOVITA-7 Assessment 99344 Review of Systems Const Denies body aches, Denies chills, Denies fever(s), Reports headache(s) and Denies poor appetite Eyes Reports no additional complaints ENT Denies dysphagia, Denies dizziness, Reports headache(s) and Denies odynophagia Card Denies chest pain, Reports syncope, Denies edema, Denies irregular heart rhythm, Reports lightheadedness and Denies dyspnea Resp Denies cough and Denies dyspnea GI Denies abdominal pain, Denies constipation, Denies dysphagia, Denies diarrhea, Reports nausea, Denies odynophagia and Reports vomiting Reports no additional complaints Musc Reports no additional complaints and Denies abnormal gait Skin/Breast Reports system reviewed and no additional complaints, except as documented Neuro Denies abnormal gait, Denies dizziness, Reports syncope and Reports headache(s) Psych Reports no additional complaints Physical exam (Primary Care) Vital Signs: Oxygen Delivery Method Room Air 09/21/24 13:26 Tobacco/Smoking Status: Tobacco use Status Tobacco use date assessed 09/21/24 09/21/24 13:27 Patient Tobacco Use Status Current everyday Tobacco 09/21/24 13:26 Tobacco use type Cigarette 09/21/24 13:27 e-Cigarette/Vaping Use Never Used 09/21/24 13:27 PHQ-9: PHQ-9 Score PHQ-9: Total score 9 09/21/24 13:31 Depression Screening Interpretation: Positive Depression Screening Follow-up: Existing condition and In treatment Thrive Assessment: Date of Thrive Assessment Date Thrive assessed 09/21/24 09/21/24 13:26 Currently or been in a relationship where the following occur: No concerns reported Const General: cooperative, healthy appearing, comfortable and no acute distress Orientation/consciousness: patient oriented x3 HENMT Head: Yes normocephalic Ears: hearing grossly normal bilaterally General nose exam: Normal external nose present Eyes General: appearance normal, both eyes and all related structures Conjunctivae: conjunctivae normal Neck Neck: Yes full ROM and Yes no lymphadenopathy Resp Effort & Inspection: normal respiratory effort Auscultation: clear to auscultation bilaterally, no crackles, no rales, no rhonchi and no wheezes Cardio Rate: regular rate Rhythm: regular rhythm Skin General skin exam: no rashes or lesions noted Neuro General: patient oriented x3 Gait exam (Neuro): Normal gait present Extrem General: Yes normal to inspection, Yes full ROM and No edema Psych Affect: normal affect Attitude: cooperative Insight: Good insight present (Psych) Judgement: Good judgement present (Psych) Coding Level of Care Code New Pt Level 4 (74560) Diagnoses ADHD F90.9 Slow transit constipation K59.01 Constipation type: slow transit constipation Anxiety F41.9 Depression F32.9 GERD (gastroesophageal reflux disease) K21.9 Migraine G43.909 Lightheadedness R42 Additional Codes JOVITA-7 Assessment Billing - JOVITA-7 Assessment Tool: JOVITA-7 Assessment 71419 ([id number]) Assessment & Plan Assessment & Plan (1) ADHD: Code(s): F90.9 - Attention-deficit hyperactivity disorder, unspecified type Category: Medical Plan: Patient is being followed by psychiatrist for this concern and is medicated with Adderall. (2) Constipation: Code(s): K59.00 - Constipation, unspecified Category: Medical Qualifiers: Constipation type: slow transit constipation Qualified Code(s): K59.01 - Slow transit constipation Plan: Currently on Linzess and being followed by [facility]. (3) Anxiety: Code(s): F41.9 - Anxiety disorder, unspecified Category: Medical Plan: Has psychiatrist and is on venlafaxine and clonazepam for this concern. Feels her symptoms are well managed at this time. (4) Depression: Code(s): F32.9 - Major depressive disorder, single episode, unspecified Category: Medical Plan: Follows with a psychiatrist and feels her symptoms are well managed at this time. (5) GERD (gastroesophageal reflux disease): Code(s): K21.9 - Gastro-esophageal reflux disease without esophagitis Category: Medical Plan: Avoid trigger foods such as citrus, tomato products, soda, caffeine, spicy foods and other foods that may be irritating to your stomach. Avoid laying flat 3-4 hours after eating and elevate the head of the bed 30 degrees to prevent acid from moving into the esophagus. Continue on Nexium. Patient states when she drinks too much water or has too much to eat she will have vomiting. Advised patient to take small meals and drink water as tolerated. Follow up with Gastroenterology for this concern. (6) Migraine: Comment: reported history of Chiari malformation Code(s): G43.909 - Migraine, unspecified, not intractable, without status migrainosus Category: Medical Plan: Patient has history of Chiari malformation and was previously being seen by Neurology for treatment of migraines. She would like to reestablish with Neurology and referral was placed to [facility] Neurology today. (7) Lightheadedness: Code(s): R42 - Dizziness and giddiness Category: Medical Plan: Patient having occasional lightheadedness and dizziness with syncope. States she will have lightheadedness without syncope on occasion as well. Orthostatics performed in the office today which showed normal response in blood pressure when going from lying down to standing. Advised patient to increase water intake and ordered for blood work further evaluation. Plan This note was constructed using voice recognition software. While every effort has been made to ensure accuracy and roast master, still areas may have been included sometimes these areas may affect the content or meeting of the given symptoms. Total time spent caring for the patient today was 30 minutes. This includes time spent before the visit reviewing the chart, time spent during the visit, and time spent after the visit and documentation. Orders: Orders MM tomosynthesis screening BI Today Z12.31 - Encounter for screening mammogram for malignant neoplasm of breast Hemoglobin A1c Today E11.65 - Type 2 diabetes mellitus with hyperglycemia Comprehensive Met. Panel Today Z00.00 - Encounter for general adult medical examination without abnormal findings Lipid Panel Today E78.00 - Pure hypercholesterolemia, unspecified Referrals Neurology Referral G43.909 - Migraine, unspecified, not intractable, without status migrainosus
[2024-09-21 13:26] VITALS: BP 120/78; PULSE 109; TEMP 36.2; O2SAT 97; BMI 31.0
== END 2024-09-21 14:23 | disposition home or self-care (01) ==
PROVIDERS: PCP Internal Medicine
DX: F90.9 Attention-deficit hyperactivity disorder, unspecified type (principal); K59.01 Slow transit constipation; F41.9 Anxiety disorder, unspecified; F32.9 Major depressive disorder, single episode, unspecified; K21.9 Gastro-esophageal reflux disease without esophagitis; G43.909 Migraine, unspecified, not intractable, without status migrainosus; R42 Dizziness and giddiness

== ENCOUNTER → 2024-09-21 13:20 | Outpatient (BNVA) | payer OTHER, SELFPAY | PROVIDERS: PCP Internal Medicine | DX: K59.01 Slow transit constipation (principal); F41.9 Anxiety disorder, unspecified; F32.9 Major depressive disorder, single episode, unspecified; K21.9 Gastro-esophageal reflux disease without esophagitis; G43.909 Migraine, unspecified, not intractable, without status migrainosus; R42 Dizziness and giddiness | CPT/HCPCS: 96127; 99202 ==

== ENCOUNTER → 2024-09-22 16:31 | Outpatient (BNVA) | payer OTHER, SELFPAY | PROVIDERS: PCP Internal Medicine; Visit Provider Nurse Practitioner Family | DX: K59.01 Slow transit constipation (principal); R11.2 Nausea with vomiting, unspecified; R10.13 Epigastric pain; R14.0 Abdominal distension (gaseous) | CPT/HCPCS: 99212 ==

== ENCOUNTER 2024-11-13 12:24 | Outpatient (REF) | payer OTHER, SELFPAY ==
--- OUTSIDE RECORDS SUMMARY | 2024-11-13 14:30 | XMS_ITS ---
Author Organization [facility] Address [address] [place] [address] Care Team Providers Care Mortar Carrier Name Role Phone Jhonny Ros Primary Care Provider [phone] ZZZMigration, Provider Unavailable Unavailab le Allergies Allergen (clinical drug ingredient) Drug/Non Drug Allergy documented on EMR Reaction Allergy Type Onset Date Status ibuprofen Ibuprofen Unknown Drug Allergy Active prazosin Prazosin worsened nightmares Drug Allergy Active varenicline Varenicline Tartrate anaphylaxis Drug Allergy Active acetaminophen Tylenol anaphylaxis Drug Allergy A ctive lurasidone Latuda anaphylaxis Drug Allergy Acti ve REASON FOR VISIT [facility] To [facility] Conversion Encounter Medications Medication SIG (Take, Route, Frequency, Duration) Notes Start Date End Date Status Vyvanse 30 MG 1 cap(s) orally bid DO NOT FILL BEFORE 08/24/2023 07/27/2023 Unknown Topamax 100 MG 1 tab(s) orally 2 ti mes a day 07/27/2023 Unknown Abilify 20 MG 1 tab(s) orally once a day Unknown Venlafaxine HCl ER 75 MG 1 cap(s) orally once a day Unknown clonazePAM 1 MG 1 tab(s) orally twic e a day as needed 09/23/2023 Unknown Adderall 15 MG 1 tab(s) orally twic e a day 07/27/2023 Unknown EpiPen 2-Romero 0.3 MG/0.3ML as directed intramuscularly once for 1 day prn 01/06/2022 Unknown Encounters Encounter Location Date Provider Diagnosis [place] [address] [place] [address] 02/20/2024 Provider TEJAMigration Plan Of Treatment No Information Progress Notes * Dominique PRADODOB:1975 (48 yo F)Acc No.[id number]:02/20/2024 Patient:Dominique RODRÍGUEZ Provider:? :1975???Age:48 Y???Sex:Female D ate:02/20/2024 Address[place], [id number] Pcp:Ros Barry Subjective: * Chief Complaints: * ?[facility] * Medical History:? * Medications:?Unknown Adderal l 15 MG Tablet 1 tab(s) orally twice a day , Unknown Vyvanse 30 MG Capsule 1 cap(s) orally bid , Notes to Pharmacist: DO NOT FILL BEFORE 08/24/2023, Unknown Topamax 100 MG Tablet 1 tab(s) orally 2 times a day , Unknown Abilify 20 MG Tablet 1 tab(s) orally once a day , Unknown Venlafaxine HCl ER 75 MG Capsule Extended Release 24 Hour 1 cap(s) orally once a day , Unknown clonazePAM 1 MG Tablet 1 tab(s) orally twice a day as needed , Unknown EpiPen 2-Romero 0.3 MG/0.3ML Solution Auto-injector as directed intramuscularly once , Notes to Pharmacist: prn * Allergies:?Tylenol: anaphyla xis - Allergy - Criticality High, Varenicline Tartrate: anaphylaxis - Allergy - Criticality High, Latuda: anaphylaxis - Allergy - Criticality High, Prazosin: worsened nightmares - Contraindication - Criticality High, Ibuprofen. Objective: * Vitals:? Assessment: Plan: * Treatment: * Images: Billing Information: * Visit Code:? * Procedure Codes:? * Sign off status: Completed true * Provider:? Date:?02/20/2024 Generated for Aleta krishna/Derek/Dorothy on:?11/13/2024 02:30 PM EDT
--- OUTSIDE RECORDS SUMMARY | 2024-11-13 14:31 | XMS_ITS | Data Portability ---
Author Organization [facility], [address] Address [address] [place] [address] Assessment No assessment recorded. Plan of Treatment Reminders Order Date Submit Date Provider Last Modified By Organization Details Last Modified Time Details Appointments None recorded. Lab None recorded. Referral emergency medicine referral - Significant left hip pain - cannot ambulate - history of fracture as a child. Coming by EMS. 2022 023 [email or web address] 26 [facility] [address] [place] [address], [address], 3 07:26:15 Procedures None recorded. Surgeries None recorded. Imaging XR, hip + pelvis, unilateral - Fall out of bed x 1 week. Significant left hip pain with radiation now into back and into pelvis. Has a history of hip fracture years ago without hip replacement . Unable to bare weight now. Now experiencin g urinary symptoms. There is bruising on the anterior hip with palpated hematoma. No redness or heat from the hip. Does have pain tracking down the femur. 2022 023 [email or web address] [facility], [address] [facility] [place], [address], 3 19:26:28 Medication Orders None recorded. Patient TargetsNo targets recorded. Patient Instructions Encounter Date Encounter Id Patient Instructions Last Modified By Organization Details Last Modified Time 10/01/2022 [id number] Based on your ex am and presentation my recommendation if for you to go immediately to the Emergency Room. The ER is better equipped to be able to assess you and do more studies to make sure that your complaint is not life threatening. Unfortunately, in the urgent care setting we do not have the ability to do many tests and studies. My concern is for you, which is why my recommendation is the Emergency Room. [email or web address] Not available 10/01/2022 17:11:48 Reason for Referral Emergency Medicine Referral for Pain of left hip joint Significant left hip pain - cannot ambulate - history of fracture as a child. Coming by EMS. Referring Physician: Leora Martinez, Urgent Care, Encounter Date: 10/01/2022 Results Created Date Observation Date Name Description Value Unit Range Abnormal Flag Note LastModifiedBy Organization Detail LastModifiedTime 10/01/1910/01/2022 XR, hip + pelvi s, unila teral No observ ation record ed. [email or web address] [facility] [address] [place], [address], 10/01/2022 20:31:21 Result Notes None recorded. Problems Name Problem SNOMED Code Status Onset Date Resolution Date Notes Provider Name and Address Organization Details Recorded Time Attention deficit hyperactivity disorder 720647604 Active 2022 Leonora holley, PA - [facility] 3 15:54:19 Bipolar disorder 54236037 Active 2022 Leonora holley, PA - [facility] 3 15:54:24 Problem Notes None recorded. Procedures Surgical History Date Name Laterality Status Provider Name and Address Organization Details Recorded Time hysterectomy completed Lenoora Hu PA - [facility] 10/01/2022 15:55:15 tonsillectomy completed Leonora Mcclain A - [facility] 10/01/2022 15:55:23 Imaging Results Imaging Date Name Status LastModified by Organiz ation Details LastModified Time 10/01/2022 XR, hip + pelvis, unilateral completed [email or web address] [facility] [address] [place], [address], 10/01/2022 20:31:21 Procedure Notes None recorded. Medical Equipment None Reported. Allergies Allergen ID Allergen Name Allergen Category Reaction Reaction Severity Criticality Documentation Date Start Date Code Code System Note Provider Name and Address Organization Details Recorded Time 227742 Tylenol medicatio n Not available Not available Not available 10/01/2022 32201 3 RxNorm Leonora Hu null, PA - [facility] 3 15:51:44 125320 ibuprofen medicatio n Not available Not available Not available 10/01/2022 5640 RxNorm Leonora Hu null, PA - [facility] 3 15:52:00 594195 Latuda medicatio n Not available Not available Not available 10/01/2022 53091 32 RxNorm Leonora Hu null, PA - [facility] 3 15:52:05 919450 aspirin medicatio n Not available Not available Not available 10/01/2022 1191 RxNorm Leonora Hu null, PA - [facility] 3 15:52:10 Medications Name Sig Start Date Stop Date Status Note LastModified by Organization Details LastModified Time clonidine HCl 0.1 mg tablet TAKE 1 TO 2 TABLETS BY MOUTH EVERY DAY AT BEDTIME 10/01 completed Not Available Not Available Not Available venlafaxine ER 75 mg capsule,ext ended release 24 hr TAKE 1 CAPSULE BY MOUTH EVERY DAY active Not Available Not Available No t Available prednisone 20 mg tablet TAKE 2 TABLETS BY MOUTH DAILY FOR 5 DAYS FOR INFLAMMAT ION active Not Available Not Available No t Available clonazepam 1 mg tablet TAKE 1 TABLET BY MOUTH TWICE DAILY NEEDED FOR 30 DAYS active Not Available Not Available No t Available tramadol 50 mg tablet TAKE 1 TABLET BY MOUTH TWICE DAILY NEEDED FOR PAIN active Not Available Not Available No t Available dextroamphe tamine-amph etamine 30 mg tablet TAKE 1 TABLET BY MOUTH EVERY MORNING active Not Available Not Available No t Available clonidine HCl 0.2 mg tablet TAKE 1 AND 1/2 TABLETS BY MOUTH EVERY DAY AT BEDTIME 10/01 completed Not Available Not Available Not Available Banophen 25 mg tablet TAKE 2 TABLETS BY MOUTH THREE TIMES DAILY NEEDED FOR ALLERGIC REACTION active Not Available Not Available No t Available dextroamphe tamine-amph etamine 15 mg tablet TAKE 1 TABLET BY MOUTH TWICE DAILY active Not Available Not Available No t Available topiramate 200 mg tablet TAKE 1 TABLET BY MOUTH EVERY NIGHT AT BEDTIME active Not Available Not Available No t Available epinephrine 0.3 mg/0.3 mL injection, auto-inject or INJECT 1 PEN IN THE MUSCLE ONE TIME DIRECTED active Not Available Not Available No t Available levofloxaci n 750 mg tablet TAKE 1 TABLET BY MOUTH DAILY FOR 5 DAYS FOR UTI active Not Available Not Available No t Available ondansetron 4 mg disintegrat ing tablet DISSOLVE 1 TABLET ON THE TONGUE EVERY 8 HOURS NEEDED FOR NAUSEA active Not Available Not Available No t Available cefdinir 300 mg capsule TAKE ONE CAPSULE BY MOUTH TWICE DAILY active Not Available Not Available No t Available metoclopram guerda 10 mg tablet TAKE 1 TABLET BY MOUTH EVERY 6 HOURS NEEDED FOR NAUSEA OR VOMITING active Not Available Not Available No t Available aripiprazol e 20 mg tablet TAKE 1 TABLET BY MOUTH EVERY MORNING active Not Available Not Available No t Available cyclobenzap rine 5 mg tablet TAKE 1 TABLET BY MOUTH THREE TIMES DAILY FOR 7 DAYS NEEDED FOR MUSCLE SPASM 10/01 completed Not Available Not Available Not Available Vyvanse 50 mg capsule TAKE 1 CAPSULE BY MOUTH EVERY DAY IN THE MORNING active Not Available Not Available No t Available Vyvanse 60 mg capsule TAKE 1 CAPSULE BY MOUTH EVERY DAY IN THE MORNING active Not Available Not Available No t Available BinaxNOW COVID-19 Ag Self Test kit TEST DIRECTED TODAY 10/01 completed Not Available Not Available Not Available Vitals Date Recorded Body height Provider Name an d Address Organization Details Last Updated DateTime 11/05/2022 165.1 cm [facility] CAST[facility]O [facility] [place], [address], PA - [facility] 12/01/2022 20:03:21 Date Recorded Oxygen saturation Oxygen saturation in Arterial blood by Pulse oximetry Pain severity - 0-10 verbal numeric rating [Score] - Reported Heart rate Respiratory rate Body temperature Body height Body mass index (BMI) Body weight Systolic blood pressure Diastolic blood pressure Provider Name and Address Organization Details Last Updated DateTime 3 97 % 97 % 10 81 /min 20 /min 97.7 [degF] 165.1 cm 25.8 kg/m2 34409.8 2 g 109 mm[Hg] 76 mm[Hg] Leonora Hu PA - [facility] 3 16:28:23 Social History Question Answer Notes LastModified by Organizat ion Details LastModified Time Tobacco Smoking Status Current Every Day Smoker Leonora holley, PA - [facility] 10/01/2022 15:55:03 What Is Your Level Of Alcohol Consumption? None Information not available 10/01/2022 Which Illicit Or Recreational Drugs Have You Used? Marijuana Information not available 10/01/2022 How Much Tobacco Do You Smoke? 0.5 PPD Information not available 10/01/2022 Do You Use Any Illicit Or Recreational Drugs? Yes Information not available 10/01/2022 Have You Recently Traveled Abroad? No Information not available 10/01/2022 Do You Or Have You Ever Used Any Other Forms Of Tobacco Or Nicotine? No Information not available 10/01/2022 Sex: Unknown Functional Status None recorded. Mental Status None recorded. Family History Nothing Reported Notes:adopted Medical History No medical history recorded. Gynecological HistoryNo gynecological history recorded. Obstetrics History GPAL:G 0 P 0 0 0 0 Immunizations Vaccine Type Date Status Note Provider Nam e and Address Organization Details Recorded Time Td(adult) unspecified formulation 01/25/2003 completed Leonora holley, PA - [facility] 10/01/2022 15:50:52 Influenza, split virus, trivalent, PF 07/07/2015 completed Leonora holley, PA - [facility] 10/01/2022 15:50:52 Hep B, adult 01/25/2003 completed Leonora Hu null, PA - [facility] 10/01/2022 15:50:52 Hep B, adult 02/22/2003 completed Leonora Hu null, PA - [facility] 10/01/2022 15:50:52 Past Encounters Encounter ID Performer Location Encounter Start Date Encounter Closed Date Diagnosis/Indication Diagnosis SNOMED-CT Code Diagnosis ICD10 Code Diagnosis Note [id number] [facility] [address] [address] 10/01/2022 14:29:12 10/01/2022 17:16:29 Pain of left hip joint 1450262767 09238 M25.552 S/P fall out of bed x 1 week ago. [id number] [facility] [address] [place] [address] 11/05/2022 08:18:11 12/01/2022 20:03:56 Left without being seen [id number] 9102 Z53.21 Health Concerns Section Related Observation LastModified by Organization Detai ls LastModified Time None Recorded Concern Status LastModified by Organization Details LastModified Time None Recorded Advance Directives Directive None Recorded Payers Encounter Date Sequence Insurance Name Policy Number Policy Rios Covered Member ID Rios Member ID Guarantor Name 10/01/2022 1 [place] PRIOR [place] 2022 - [facility] (MEDICAID) Dominique Galvan Suzy [id number] Dominique Almonte 11/05/2022 1 [place] 2022 - [facility] (MEDICAID) Dominique Galvan Suzy [id number] Dominique Almonte Notes Date Note Type Note Provider Name and Address Organization Details Recorded Time 3 text/html Thigh / HipReported bypatient.source of patient informationInformation obtained from patient; Patient arrived at Urgent Care in wheelchair Location:left Quality:throbbing; sharp; worsening Severity:severe; pain level 10/10 Duration:1 weeks Timing:acute Context:fall; Fell out of bed - rolled out and landed directly on the left hip. Instant pain. Alleviating Factors:nothing helps; Cannot take Ibuprofen or Tylenol. Only child Tylenol is what she is able to tolerate. Aggravating Factors:standing; walking Associated Symptoms:weakness;numbness; tingling;swelling;ecchymosi s; Worsening hip pain into the femur and into the back. Feeling a lot of pelvic pressure. Trouble urinating now - has to force to urinate.Notes:The patient has a history of left hip fracture years ago when she was younger. No hip replacement needed. She reports that the pain is intensifying. Pain so severe is makes her feel faint. Does not want to move. She feels like the pain is a stabbing with any type of position changes. She can no longer ambulate. Has not seeked care since the injury. [facility] [address] [place], [address], [place] - [facility] 10/01/2022 17:47:49 OBGyn Episode No OBEpisode recorded.
--- OUTSIDE RECORDS SUMMARY | 2024-11-13 14:31 | XMS_ITS | Clinical Summary ---
Author Organization [employer] [facility] Address [address] [place] [address] Care Team Providers Care Posting Specialist Name Role Phone Lilliana Mosqueda MD Primary Care Provider Social History Tobacco Use Types Packs/Day Years Used Date Smoking Tobacco: Never Assessed Comments Unknown Sex and Gender Information Value Date Recorded Sex Assigned at Not on file Legal Sex Female 1:13 AM EST Gender Identity Not on file Sexual Orientation Not on file Plan of Treatment Health Maintenance Due Date Last Done Comments Breast Cancer Screening 1977 DTaP,Tdap,and Td Vaccines (1 - Tdap) 1996 Cervical Cancer Screening: P ap Smear 1998 Hepatitis B Vaccines (3 of 3 - 19+ 3-dose series) 07/28/2003 02/22/2003, 01/25/2003 COVID-19 Vaccine (2023-2 5 season) 2024 Influenza Vaccine (#1) 2024 Colorectal Cancer Screening: Colonoscopy 07/02/2024 Depression Screening 07/02/2024 HIV Screening 07/02/2024 Hepatitis C Screening 07/02/2024 Social Influencers of Health Screening 07/02/2024 HIB Vaccines Aged Out No longer eligi ble based on patient's age to complete this topic HPV Vaccines Aged Out No longer eligi ble based on patient's age to complete this topic Hepatitis A Vaccines Aged Out No long er eligible based on patient's age to complete this topic IPV Vaccines Aged Out No longer eligi ble based on patient's age to complete this topic MMR Vaccines Aged Out No longer eligi ble based on patient's age to complete this topic Meningococcal ACWY Vaccine Aged Out N o longer eligible based on patient's age to complete this topic Meningococcal B Vacine Aged Out No lo nger eligible based on patient's age to complete this topic Pneumococcal Vaccine: Pediatrics (0 to 5 Years) and At-Risk Patients (6 to 64 Years) Aged Out No longer eligible b ased on patient's age to complete this topic RSV Immunization Patients Under 20 months Aged Out No longer eligible b ased on patient's age to complete this topic Varicella Vaccines Aged Out No longer eligible based on patient's age to complete this topic Care Teams Posting Specialist Relationship Specialty Start Date End Date Lilliana Mosqueda MD [address] [place] [phone] PCP - General Family Medicine 05/31/19
--- OUTSIDE RECORDS SUMMARY | 2024-11-13 14:31 | XMS_ITS ---
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 Generated for Printi ng/Famarielleg/eTransmitting on:?11/13/2024 02:31 PM EDT
--- OUTSIDE RECORDS SUMMARY | 2024-11-13 14:31 | XMS_ITS | Data Portability ---
Author Organization [facility], [facility] Address [address] [place] [address] Care Team Providers Care Coconut Jelly Roller Name Role Phone VERONICA MOSQUEDA Primary Care Provider [phone] [facility] OTHER Assessment Encounter Date Assessment Date Assessment LastModified by Organization Details LastModified Time 08/29/2020 08/29/2020 Patient agreed t o this visit via a secure telehealth platform due to the COVID -19 pandemic. Patient understands this is a scheduled visit and the usual procedures with regard to billing and confidentiality apply. Patient was notified that the provider location is Patient location: home During the visit the patient? s medical history and medical record were reviewed. The patient was notified to call our office for worsening or urgent symptoms. I had reviewed her ER visit before her virtual visit. She had a urine tox screen that was positive for multiple drugs including cocaine and fentanyl cannabinoids. I asked her how she could account for that and she said it was a bad weekend . PDR slips that she had taken oxycodone prior to her visit there (she had in a prescription for that from the [facility]) but she says she did not take any and that accounts for the fact that there was none in her urine test. I explained that this was a superficial thrombophlebitis by her ultrasound and that continuing her ibuprofen 800 mg 3 times a day and using warm compresses and possibly a cane for support was all that I can recommend at this point. She then became tearful and ended the video conference. I tried to call her back on her telephone and only got her voice messaging. I left a message stating she should call us back if there are any further problems. crystal Not available 08/29/2020 13:51:04 11/03/2022 11/03/2022 Patient agreed t o this visit via a secure telehealth platform due to the COVID -19 pandemic. Patient understands this is a scheduled visit and the usual procedures with regard to billing and confidentiality apply. Patient was notified that the provider location is [facility] Patient location: home During the visit the patient? s medical history and medical record were reviewed. The patient was notified to call our office for worsening or urgent symptoms. [email or web address] Not available 11/03/2022 11:23:47 Plan of Treatment Reminders Order Date Submit Date Provider Last Modified By Organization Details Last Modified Time Details Appointments None recorded. Lab drug screen, urine - Screening for use 2022 023 [facility], [address] [place] [address], [address], 3 10:36:23 culture, urine 2022 023 [facility], [address] [place] [address], [address], 3 09:27:59 drug screen, unspecifie d specimen - Screening 2022 023 [facility], [address] [place] [address], [address], 3 10:42:45 urinalysis , dipstick 2022 023 [facility], [address] [place] [address], [address], 3 13:30:05 Referral sleep medicine referral - significan t daytime somnolence with Stockbridge scale 20. c/o possible seep apnea 2022 023 [email or web address], [address] [facility], [place], [address], 14:45:20 Procedures None recorded. Surgeries None recorded. Imaging electrocar diogram 2022 023 [facility], [address], [place], [address], 3 13:30:04 CT, head, w/o contrast - recurrent loss of consciousn ess x2-3 weeks within 1 wk 2022 023 VERONIKA [facility], [address] [facility], [place], [address], 3 18:40:54 Medication Orders nicotine 14 mg/24 hr daily transderma l patch 2022 023 [id number], [address], [place], [id number], 3 13:30:05 Patient TargetsNo targets recorded. Patient Instructions Encounter Date Encounter Id Patient Instructions Last Modified By Organization Details Last Modified Time 05/15/2020 [id number] -Focus on increased water. -UA and UC ordered. [email or web address] Not available 05/15/2020 15:01:56 Counseling done {{Patient not ready to quit Contemplatin g quitting Tapering Cigarettes signed up for support prescript ion for stop smoking medication given}} {{Patient not ready to quit Contemplatin g quitting Tapering Cigarettes signed up for support prescript ion for stop smoking medication given}} Goal for follow up visit {{adding exercise regular meals stress management improv ing sleep therapist identifying sponsor}} {{adding exercise regular meals stress management improv ing sleep therapist identifying sponsor}} {{adding exercise regular meals stress management improv ing sleep therapist identifying sponsor}}My Health To Do List {{go to [employer] or call si gn up for ramona text 2 quit or other stop smoking ramona contact [employer]}} {{go to [employer] or call si gn up for ramona text 2 quit or other stop smoking ramona contact [employer]}} {{go to [employer] or call si gn up for ramona text 2 quit or other stop smoking ramona contact [employer]}} [email or web address] Not available 05/15/2020 14:36:03 Reason for Referral Sleep Medicine Referral for Daytime somnolence significant daytime somnolence with Stockbridge scale 20. c/o possible seep apnea Referring Physician: Brina Mas, Family Medicine, Encounter Date: 05/14/2023 Results Created Date Observation Date Name Description Value Unit Range Abnormal Flag Note LastModifiedBy Organization Detail LastModifiedTime 07/13/20 22 07/13/2022 SARS- COV-2 RNA (COVI D-19) , QUALI TATIV E NAAT sarscov2 POSITI VE negati ve abnormal This test has been autho rized by the FDA under an Emerg ency Use Autho rizat ion(E UA) for you by autho rized labs. Not Available [address], [address], 07/13/2022 15:15:04 11/06/19 23 11/05/2022 POC UA glu UA NEGATI VE Not Available [facility] [address] [place] [address], [address], 11/05/2022 11:50:54 11/06/19 23 11/05/2022 POC UA clarity UA CLEAR Not Available [address], [address], 11/05/2022 11:50:54 11/06/19 23 11/05/2022 POC UA uro UA 0.2000 Not Available [address], [address], 11/05/2022 11:50:54 11/06/19 23 11/05/2022 POC UA ket UA NEGATI VE Not Available [address], [address], 11/05/2022 11:50:54 11/06/19 23 11/05/2022 POC UA pro UA TRACE abnormal Not Available [address], [address], 11/05/2022 11:50:54 11/06/19 23 11/05/2022 POC UA nit UA NEGATI VE Not Available [facility] [address] [place] [address], [address], 11/05/2022 11:50:54 11/06/19 23 11/05/2022 POC UA dago UA 3+ abnormal Not Available [facility] [address] [place] [address], [address], 11/05/2022 11:50:54 11/06/19 23 11/05/2022 POC UA pH UA 8.5000 Not Available [facility] [address] [place] [address], [address], 11/05/2022 11:50:54 11/06/19 23 11/05/2022 POC UA SG UA 1.0100 Not Available [facility] [address] [place] [address], [address], 11/05/2022 11:50:54 11/06/19 23 11/05/2022 POC UA color UA YELLOW Not Available [facility] [address] [place] [address], [address], 11/05/2022 11:50:54 11/06/19 23 11/05/2022 POC UA blo UA NEGATI VE Not Available [facility] [address] [place] [address], [address], 11/05/2022 11:50:54 11/06/19 23 11/05/2022 POC UA charlie UA NEGATI VE Not Available [facility] [address] [place] [address], [address], 11/05/2022 11:50:54 11/06/19 23 11/07/2022 CULTU RE, URINE , ROUTI NE culture, urine, routine CULTU RE, URINE , ROUTI NE Micro Numbe r: [id number] Test Statu s: Final Speci men Sourc e: Urine Speci men Quali ty: Adequ ate Resul t: Mixed genit al monica isola richie. These super ficia l bacte anand are not indic ative of a urina ry tract infec tion. No furth er organ ism ident ifica tion is warra nted on this speci men. If clini daily indic ated, recol lect clean -catc h, mid-s tream urine and trans michael immed iatel y to Urine Cultu re Trans port Tube. Not Available [facility] [address], [place], [address], 11/07/2022 09:27:59 11/06/19 23 11/12/2022 DRUG TOX AMPHE TAMIN ES, W/CON F, ORAL FLUID amphetamines NEGATI VE NG/mL <10 For addit ional infor dora cervantes e refer to http: //[facility] j[facility]son.Que stDia gnost ics.c om/fa q/FAQ 186 (This link is being provi ded for infor matfátima nal/ educa yamini l purpo ses only. ) This drug testi ng is for medic al treat ment only. Az sis was perfo rmed as non-f orens ic testi ng and these resul ts shoul d be used only by healt hcare provi ders to rende r diagn osis or treat ment, or to monit or progr ess of medic al condi tions . For lucinda tance with inter preti ng these drug resul ts, pleyonathna e conta ct a [facility] Speci alist : 1-877 -40-R X TOX ( [phone] ), M-F, 8am-6 pm EST. These tests were devel oped and their az tical perfo rmanc e cherrie cteri stics have been deter mined by [facility]. They have not been clear ed or appro milan by the FDA. These assay s have been valid ated pursu ant to the CLIA regul ation s and are used for clini micheal purpo ses. Not Available [facility] [address], [place], [address], 11/12/2022 10:42:45 11/06/19 23 11/12/2022 DRUG TOX AMPHE TAMIN ES, W/CON F, ORAL FLUID barbiturates NEGATI VE NG/mL <10 For addit ional infor dora cervantes e refer to http: //[facility] tonieQue stDia gnost ics.c om/fa q/FAQ 186 (This link is being provi ded for infor matio nal/ educa yamini l purpo ses only. ) This drug testi ng is for medic al treat ment only. Az sis was perfo rmed as non-f orens ic testi ng and these resul ts shoul d be used only by healt hcare provi ders to rende r diagn osis or treat ment, or to monit or progr ess of medic al condi tions . For lucinda tance with inter preti ng these drug resul ts, dora e conta ct a [facility] Toxic [facility] Speci alist : 1-877 -40-R X TOX ( [phone] ), M-F, 8am-6 pm EST. These tests were devel oped and their az tical perfo rmanc e cherrie cteri stics have been deter mined by [facility]. They have not been clear ed or appro milan by the FDA. These assay s have been valid ated pursu ant to the CLIA regul ation s and are used for clini micheal purpo ses. Not Available [facility] [address] [place] [address], [place], [address], 11/12/2022 10:42:45 11/06/19 23 11/12/2022 DRUG TOX AMPHE TAMIN ES, W/CON F, ORAL FLUID benzodiazepi pascale NEGATI VE NG/mL <0.50 For addit ional dora yates e refer to http: //[facility]ima schillingQue stDia gnost ics.c om/fa q/FAQ 186 (This link is being provi ded for infor matio nal/ educa yamini l purpo ses only. ) This drug testi ng is for medic al treat ment only. Az sis was perfo rmed as non-f orens ic testi ng and these resul ts shoul d be used only by healt hcare provi ders to rende r diagn osis or treat ment, or to monit or progr ess of medic al condi tions . For lucinda newby with inter preti ng these drug resul ts, pleas e conta ct a [facility] Speci alist : 1-877 -40-R X TOX ( [phone] ), M-F, 8am-6 pm EST. These tests were devel oped and their az tical perfo rmanc e cherrie cteri stics have been deter mined by [facility]. They have not been clear ed or appro milan by the FDA. These assay s have been valid ated pursu ant to the CLIA regul ation s and are used for clini micheal purpo ses. Not Available [facility] [address], [address], 11/12/2022 10:42:45 11/06/19 23 11/12/2022 DRUG TOX AMPHE TAMIN ES, W/CON F, ORAL FLUID cocaine POSITI VE NG/mL <5.0 abnormal Not Available [facility] [address], [address], 11/12/2022 10:42:45 11/06/19 23 11/12/2022 DRUG TOX AMPHE TAMIN ES, W/CON F, ORAL FLUID benzoylecgon ine >250.0 NG/mL <5.0 high Benzo ylecg onine is a metab olite of cocai ne. Not Available [facility] [address], [address], 11/12/2022 10:42:45 11/06/19 23 11/12/2022 DRUG TOX AMPHE TAMIN ES, W/CON F, ORAL FLUID cocaine >250.0 NG/mL <5.0 high For addit ional infor dora cervantes e refer to http: //[facility] saud schillingQue stDia gnost ics.c om/fa q/FAQ 186 (This link is being provi ded for infor matio nal/ educa yamini l purpo ses only. ) This drug testi ng is for medic al treat ment only. Az sis was perfo rmed as non-f orens ic testi ng and these resul ts shoul d be used only by [facility]alt [facility] to rende r diagn osis or treat ment, or to monit or progr ess of medic al condi tions . For lucinda tance with inter preti ng these drug resul tsdora e conta ct a [facility] Speci alist : -877 [phone]-R X TOX ( [phone] ), M-F, 8am-6 pm EST. These tests were devel oped and their az tical perfo rmanc e cherrie cteri stics have been deter mined by [facility]. They have not been clear ed or appro milan by the FDA. These assay s have been valid ated pursu ant to the CLIA regul ation s and are used for clini micheal purpo ses. Not Available [facility] [address], [place], [address], 11/12/2022 10:42:45 11/06/19 23 11/12/2022 DRUG TOX AMPHE TAMIN ES, W/CON F, ORAL FLUID methadone NEGATI VE NG/mL <5.0 For addit ional lizr dora cervantes e refer to http: //[facility] Gordon stDia gnost ics.c om/fa q/FAQ 186 (This link is being provi ded for infor matio nal/ educa yamini l purpo ses only. ) This drug testi ng is for medic al treat ment only. Az sis was perfo rmed as non-f orens ic testi ng and these resul ts shoul d be used only by [facility]alt [facility] to rende r diagn osis or treat ment, or to monit or progr ess of medic al condi tions . For lucindasuze newby with inter preti ng these drug resul ts, pleas e conta ct a [facility] Toxic ology Speci alist : -877 -40-R X TOX ( [phone] ), M-F, 8am-6 pm EST. These tests were devel oped and their az tical perfo rmanc e cherrie cteri stics have been deter mined by [facility]. They have not been clear ed or appro milan by the FDA. These assay s have been valid ated pursu ant to the CLIA regul ation s and are used for clini micheal purpo ses. Not Available [facility] [address], [address], 11/12/2022 10:42:45 11/06/19 23 11/12/2022 DRUG TOX AMPHE TAMIN ES, W/CON F, ORAL FLUID buprenorphin e NEGATI VE NG/mL <0.10 Not Available [facility] [address], [address], 11/12/2022 10:42:45 11/06/19 23 11/12/2022 DRUG TOX AMPHE TAMIN ES, W/CON F, ORAL FLUID fentanyl POSITI VE NG/mL <0.10 abnormal Not Available [facility] [address], [address], 11/12/2022 10:42:45 11/06/19 23 11/12/2022 DRUG TOX AMPHE TAMIN ES, W/CON F, ORAL FLUID fentanyl >25.00 NG/mL <0.10 high Not Available [facility] [address], [address], 11/12/2022 10:42:45 11/06/19 23 11/12/2022 DRUG TOX AMPHE TAMIN ES, W/CON F, ORAL FLUID heroin metabolite POSITI VE NG/mL <1.0 abnormal Not Available [facility] [address], [place], [address], 11/12/2022 10:42:45 11/06/19 23 11/12/2022 DRUG TOX AMPHE TAMIN ES, W/CON F, ORAL FLUID heroin metabolite 6.6 NG/mL <1.0 high Not Available [facility] [address], [place], [address], 11/12/2022 10:42:45 11/06/19 23 11/12/2022 DRUG TOX AMPHE TAMIN ES, W/CON F, ORAL FLUID opiates POSITI VE NG/mL <2.5 abnormal Not Available [facility] [address], [place], [address], 11/12/2022 10:42:45 11/06/19 23 11/12/2022 DRUG TOX AMPHE TAMIN ES, W/CON F, ORAL FLUID codeine NEGATI VE NG/mL <2.5 Not Available [facility] [address], [place], [address], 11/12/2022 10:42:45 11/06/19 23 11/12/2022 DRUG TOX AMPHE TAMIN ES, W/CON F, ORAL FLUID dihydrocodei ne NEGATI VE NG/mL <2.5 Not Available [facility] [address], [place], [address], 11/12/2022 10:42:45 11/06/19 23 11/12/2022 DRUG TOX AMPHE TAMIN ES, W/CON F, ORAL FLUID hydrocodone NEGATI VE NG/mL <2.5 Not Available [facility] [address], [place], [address], 11/12/2022 10:42:45 11/06/19 23 11/12/2022 DRUG TOX AMPHE TAMIN ES, W/CON F, ORAL FLUID hydromorphon e NEGATI VE NG/mL <2.5 Not Available [facility] [address], [place], [address], 11/12/2022 10:42:45 11/06/19 23 11/12/2022 DRUG TOX AMPHE TAMIN ES, W/CON F, ORAL FLUID morphine 5.5 NG/mL <2.5 high Morph ine is a metab olite of codei ne as well as a presc ribed drug, and also can be obser milan follo wing inges tion of produ cts conta ining poppy seeds . Not Available [facility] [address], [place], [address], 11/12/2022 10:42:45 11/06/19 23 11/12/2022 DRUG TOX AMPHE TAMIN ES, W/CON F, ORAL FLUID norhydrocodo ne NEGATI VE NG/mL <2.5 Not Available [facility] [address], [place], [address], 11/12/2022 10:42:45 11/06/19 23 11/12/2022 DRUG TOX AMPHE TAMIN ES, W/CON F, ORAL FLUID noroxycodone NEGATI VE NG/mL <2.5 Not Available [facility] [address], [place], [address], 11/12/2022 10:42:45 11/06/19 23 11/12/2022 DRUG TOX AMPHE TAMIN ES, W/CON F, ORAL FLUID oxycodone NEGATI VE NG/mL <2.5 Not Available [facility] [address], [place], [address], 11/12/2022 10:42:45 11/06/19 23 11/12/2022 DRUG TOX AMPHE TAMIN ES, W/CON F, ORAL FLUID oxymorphone NEGATI VE NG/mL <2.5 Not Available [facility] [address], [place], [address], 11/12/2022 10:42:45 11/06/19 23 11/12/2022 DRUG TOX AMPHE TAMIN ES, W/CON F, ORAL FLUID tapentadol NEGATI VE NG/mL <5.0 Not Available [facility] [address], [place], [address], 11/12/2022 10:42:45 11/06/19 23 11/12/2022 DRUG TOX AMPHE TAMIN ES, W/CON F, ORAL FLUID tramadol NEGATI VE NG/mL <5.0 For addit ional infor dora cervantes e refer to http: //[facility] schillingQue stDia gnost ics.c om/fa q/FAQ 186 (This link is being provi ded for infor chica pal/ educa yamini l purpo ses only. ) This drug testi ng is for medic al treat ment only. Az sis was perfo rmed as non-f orens ic testi ng and these resul ts shoul d be used only by healt hcare provi ders to rende r diagn osis or treat ment, or to monit or progr ess of medic al condi tions . For lucinda tance with inter preti ng these drug resul ts, dora e conta ct a [facility] alist : 1-877 [phone]-R X TOX ( [phone] ), M-F, 8am-6 pm EST. These tests were devel oped and their az tical perfo rmanc e cherrie cteri stics have been deter mined by [facility]. They have not been clear ed or appro milan by the FDA. These assay s have been valid ated pursu ant to the CLIA regul ation s and are used for clini micheal purpo ses. Not Available [facility] [address], [place], [address], 11/12/2022 10:42:45 05/14/20 23 05/18/2023 DRUG SCREE N-8, URINE , WITH CONFI RMATI ON GC/MS amphetamine NEG. negati ve Not Available [address], [address], 05/18/2023 10:36:23 05/14/20 23 05/18/2023 DRUG SCREE N-8, URINE , WITH CONFI RMATI ON GC/MS barbiturates NEG. negati ve Not Available [address], [address], 05/18/2023 10:36:23 05/14/20 23 05/18/2023 DRUG SCREE N-8, URINE , WITH CONFI RMATI ON GC/MS benzodiazepi ne NEG. negati ve Not Available [address], [address], 05/18/2023 10:36:23 05/14/20 23 05/18/2023 DRUG SCREE N-8, URINE , WITH CONFI RMATI ON GC/MS cocaine POS. negati ve GCMS= Sampl e [facility] to [facility] for confi rmati on by GC/MS . Not Available [address], [address], 05/18/2023 10:36:23 05/14/20 23 05/18/2023 DRUG SCREE N-8, URINE , WITH CONFI RMATI ON GC/MS opiates POS. negati ve GCMS= Sampl e sent to [facility] for confi rmati on by GC/MS . Not Available [address], [address], 05/18/2023 10:36:23 05/14/20 23 05/18/2023 DRUG SCREE N-8, URINE , WITH CONFI RMATI ON GC/MS methadone NEG. negati ve Not Available [address], [address], 05/18/2023 10:36:23 05/14/20 23 05/18/2023 DRUG SCREE N-8, URINE , WITH CONFI RMATI ON GC/MS fentanyl POS. negati ve GCMS= Sampl e sent to [facility] for confi rmati on by GC/MS . Syva EMIT II Limit s of Detec tion (cutt -off value s) Vidhya Expan d: Amphe tamin es: 1000 ng/ml Opiat es: 300 ng/ml Aranza tuate s: 200 ng/ml Oxyco done 100 ng/ml Benzo diaze pines : 200 ng/ml Metha done 300 ng/ml Cocai ne: 300 ng/ml Fenta nyl 1 ng/ml Not Available [address], [address], 05/18/2023 10:36:23 05/14/20 23 05/18/2023 DRUG SCREE N-8, URINE , WITH CONFI RMATI ON GC/MS oxycodone NEG. negati ve Not Available [address], [address], 05/18/2023 10:36:23 05/14/20 23 05/26/2023 DRUG TOX MONIT ORING COCAI NE METAB , QN, U benzoylecgon ine >[address] NG/mL <100 high See Note 1 Not Available [facility] [address], [address], 05/26/2023 11:58:23 05/14/20 23 05/26/2023 DRUG TOX MONIT ORING COCAI NE METAB , QN, U Unknown Analyte See Note 2 Not Available [facility] [address], [address], 05/26/2023 11:58:23 05/14/20 23 05/26/2023 DRUG TOX MONIT ORING OPIAT ES EXPAN DED QN, U codeine NEGATI VE NG/mL <50 See Note 1 Not Available [facility] [address], [place], [address], 05/26/2023 11:58:24 05/14/20 23 05/26/2023 DRUG TOX MONIT ORING OPIAT ES EXPAN DED QN, U hydrocodone NEGATI VE NG/mL <50 See Note 1 Not Available [facility] [address], [place], [address], 05/26/2023 11:58:24 05/14/20 23 05/26/2023 DRUG TOX MONIT ORING OPIAT ES EXPAN DED QN, U hydromorphon e NEGATI VE NG/mL <50 See Note 1 Not Available [facility] [address], [place], [address], 05/26/2023 11:58:24 05/14/20 23 05/26/2023 DRUG TOX MONIT ORING OPIAT ES EXPAN DED QN, U morphine 274 NG/mL <50 high See Note 1 Not Available [facility] [address], [place], [address], 05/26/2023 11:58:24 05/14/20 23 05/26/2023 DRUG TOX MONIT ORING OPIAT ES EXPAN DED QN, U norhydrocodo ne 99 NG/mL <50 high See Note 1 Not Available [facility] [address], [place], [address], 05/26/2023 11:58:24 05/14/20 23 05/26/2023 DRUG TOX MONIT ORING OPIAT ES EXPAN DED QN, U noroxycodone NEGATI VE NG/mL <50 See Note 1 Not Available [facility] [address], [place], [address], 05/26/2023 11:58:24 05/14/20 23 05/26/2023 DRUG TOX MONIT ORING OPIAT ES EXPAN DED QN, U oxycodone NEGATI VE NG/mL <50 See Note 1 Not Available [facility] [address], [place], [address], 05/26/2023 11:58:24 05/14/20 23 05/26/2023 DRUG TOX MONIT ORING OPIAT ES EXPAN DED QN, U oxymorphone NEGATI VE NG/mL <50 See Note 1 Not Available [facility] [address], [place], [address], 05/26/2023 11:58:24 05/14/20 23 05/26/2023 DRUG TOX MONIT ORING OPIAT ES EXPAN DED QN, U Unknown Analyte See Note 2 Note 1 This test was lo leong and its az tical perfo rmanc e cherrie cteri stics have been deter mined by [facility]. It has not been clear ed or appro milan by the FDA. This assay has been valid ated pursu ant to the CLIA regul ation s and is used for clini micheal purpo ses. Note 2 This drug testi ng is for medic al treat ment only. Az sis was perfo rmed as non-f orens ic testi ng and these resul ts shoul d be used only by healt hcare provi ders to rende r diagn osis or treat ment, or to monit or progr ess of medic al condi tions . For lucinda tance with inter preti ng these drug resul ts, pleas e conta ct a [facility] Speci alist : [phone]-R X TOX ( [phone] ), M-F, 8am-6 pm EST. Not Available [facility] [address], [place], [address], 05/26/2023 11:58:24 05/14/20 23 05/26/2023 DRUG TOX MONIT ORING FENTA NYL, QN, URINE fentanyl >500.0 NG/mL <0.5 high See Note 1 Not Available [facility] [address] Jorgito Morgan, [place], [address], 05/26/2023 11:58:25 05/14/20 23 05/26/2023 DRUG TOX MONIT ORING FENTA NYL, QN, URINE norfentanyl >500.0 NG/mL <0.5 high See Note 1 Not Available [facility] [address] Jorgito Morgan, [place], [address], 05/26/2023 11:58:25 05/14/20 23 05/26/2023 DRUG TOX MONIT ORING FENTA NYL, QN, URINE Unknown Analyte See Note 2 Not Available [facility] [address] Jorgito Morgan, [place], [address], 05/26/2023 11:58:25 08/25/20 20 08/25/2020 US, bebeto swan, jessenia s, elsy abrams, unila teral No observ ation record ed. [email or web address] [facility] [address] [place] [address], [address], 08/26/2020 08:16:36 11/06/1911/05/2022 elect roccheryl diogr am No observ ation record ed. [facility] [address] [facility], [place], [address], 11/05/2022 17:24:06 11/06/19 23 11/05/2022 elect rocar diogr am No observ ation record ed. BARCODE Not Available 2022 13:43:40 11/20/19 23 11/19/2022 CT, head, w/o contr ast No observ ation record ed. [email or web address] [facility] [address] [facility], [place], [address], 11/23/2022 13:22:12 Result Notes None recorded. 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 Procedures Surgical History Date Name Laterality Status Provider Name and Address Organization Details Recorded Time 05/14/20 23 [place] Sleepiness Scale completed Brina Mas NP [address] [place], [address], [facility] 05/14/2023 09:09:02 11/06/19 23 Smoking cessation counseling completed Kathy Bruce MA [facility] 11/05/2022 10:55:10 05/15/20 20 Smoking cessation counseling completed Venkatesh Huizar CMA [facility] 05/15/2020 14:36:03 05/15/20 20 Carbon Monoxide Testing completed Venkatesh Huizar [facility] 05/15/2020 14:36:03 01/24/20 20 Smoking cessation counseling cancelled Rosio Pineda [facility] 01/24/2020 09:21:10 11/14/19 20 Smoking cessation counseling completed Veronica Mosqueda [address] [place], [address], [facility] 11/14/2019 12:16:29 06/05/20 19 Smoking cessation counseling completed Veronica Mosqueda [address] [place], [address], [facility] 06/05/2019 13:08:50 06/05/20 19 Carbon Monoxide Testing completed Veronica Mosqueda [address] [place], [address], [facility] 06/05/2019 12:53:49 05/03/20 19 Smoking cessation counseling completed Radha Harding LPN [facility] 05/03/2019 14:49:04 05/03/20 19 Carbon Monoxide Testing completed Radha Harding LPN [facility] 05/03/2019 14:49:05 04/25/20 19 Smoking cessation counseling completed Radha Harding LPN [facility] 04/25/2019 09:33:51 04/25/20 19 Carbon Monoxide Testing completed Radha Harding LPN [facility] 04/25/2019 09:33:51 01/13/20 19 Smoking cessation counseling completed Radha Harding LPN [facility] 01/12/2019 11:19:16 01/13/20 19 Carbon Monoxide Testing completed Radha Harding LPN [facility] 01/12/2019 11:19:16 12/14/19 19 Smoking cessation counseling completed Brina Mas NP [address] [place], [address], [facility] 12/13/2018 21:14:34 11/01/19 19 Smoking cessation counseling completed Radha Harding LPN [facility] 10/31/2018 13:38:26 11/01/19 19 Carbon Monoxide Testing completed Radha Harding LPN [facility] 10/31/2018 13:38:26 07/25/20 18 Smoking cessation counseling completed Wilfredo Abreu MD [address] [place], [address], [facility] 07/25/2018 11:42:34 07/25/20 18 Carbon Monoxide Testing completed Wilfredo Abreu MD [address] [place], [address], [facility] 07/25/2018 11:42:34 02/12/20 18 Smoking cessation counseling completed Abbey Roberts [facility] 02/11/2018 09:29:14 02/12/20 18 POC Urinalysis Testing completed Abbey Roberts [facility] 02/11/2018 09:22:45 02/10/20 18 POC Urinalysis Testing completed Mamadou Calhoun [facility] 02/09/2018 09:58:23 09/24/19 18 Smoking cessation counseling completed Dina Vidales [facility] 09/24/2017 08:15:41 06/14/20 17 Smoking cessation counseling completed Radha Harding [facility] 06/14/2017 14:30:32 06/14/20 17 Carbon Monoxide Testing completed Radha Harding [facility] 06/14/2017 14:30:32 05/18/20 17 Smoking cessation counseling completed Veronica Mosqueda [address] [place] [address], [address], [facility] 05/18/2017 12:39:41 05/18/20 17 Carbon Monoxide Testing completed Veronica Mosqueda [address] [place], [address], [facility] 05/18/2017 12:39:42 05/11/20 17 Smoking cessation counseling completed Veronica Mosqueda [address] [place], [address], [facility] 05/11/2017 14:32:31 05/11/20 17 Carbon Monoxide Testing completed Veronica Mosqueda [address] [place], [address], [facility] 05/11/2017 14:32:31 05/04/20 17 Smoking cessation counseling completed Veronica Mosqueda [address] [place], [address], [facility] 05/04/2017 15:44:54 05/04/20 17 Carbon Monoxide Testing completed Veronica Mosqueda [address] [place], [address], [facility] 05/04/2017 15:44:54 09/08/19 17 Smoking cessation counseling completed Veronica Mosqueda [address] [place], [address], [facility] 09/08/2016 12:15:00 08/03/20 16 Smoking cessation counseling completed Tricia Flores [facility] 08/03/2016 11:08:39 08/03/20 16 Carbon Monoxide Testing completed Tricia Flores [facility] 08/03/2016 11:15:41 06/08/20 16 Smoking cessation counseling completed Ilda Kahn [facility] 06/08/2016 16:05:24 06/08/20 16 Carbon Monoxide Testing completed Ilda Kahn [facility] 06/08/2016 16:08:38 06/08/20 16 [facility] 16:08:54 03/31/20 16 09526: PT Evaluation completed Audrey Sierra, PT [address] [place], [address], [facility] 04/05/2016 13:09:14 01/13/20 16 POC Urinalysis Testing completed Ilda Kahn [facility] 01/13/2016 13:46:45 12/04/19 16 Smoking cessation counseling completed Leora Jacobs [facility] 12/04/2015 16:36:34 08/30/19 06 Total Hysterectomy completed Bethanie Valenzuela PA-C [address] [place] [address], [address], [facility] 01/13/2016 13:42:51 08/30/19 06 Oophorectomy completed Bethanie Valenzuela PA-C [address] [place] [address], [address], [facility] 01/13/2016 13:42:51 08/30/18 95 Tonsillectomy completed Veronica Mosqueda [address] [place], [address], [facility] 01/12/2013 08:43:02 Imaging Results Imaging Date Name Status LastModified by Organization Details LastModified Time 08/25/2020 US, duplex, venous, extremity, unilateral completed [email or web address] [facility] [address] [place], [address], 08/26/2020 08:16:36 11/05/2022 electrocardiogram completed [address], [address], 11/05/2022 17:24:06 11/05/2022 electrocardiogram completed BARCODE Informa tion not available 11/05/2022 13:43:40 11/19/2022 CT, head, w/o contrast completed [address] [facility] [address] [place], [address], 11/23/2022 13:22:12 Procedure Notes None recorded. Medical Equipment None Reported. Allergies Allergen ID Allergen Name Allergen Category Reaction Reaction Severity Criticality Documentation Date Start Date Code Code System Note Provider Name and Address Organization Details Recorded Time [id number] Chantix medicatio n other mild Not available 01/12/2013 15887 0 RxNorm sever e night agarwal , sleep walki ng Veronica Mosqueda [address] [place] [address], [phone], [facility] 3 09:01:40 670155 gabapenti n medicatio n headache Not available Not available 12/04/2013 42792 RxNorm Veronica Mosqueda [address] [place], [address], [facility] 4 14:21:38 286528 topiramat e medicatio n other Not available Not available 05/18/2017 35062 RxNorm sever e depre ssion Veronica Mosqueda [address] [place], [address], [facility] 7 12:25:41 048590 Latuda medicatio n hives severe Not available 11/14/2019 39538 32 RxNorm 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, 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 null, [facility] 0 11:55:18 568370 Tylenol medicatio n rash Not available Not available 01/11/2020 3 RxNorm per aller gist, not to take Veronica Sandra Mosqueda [address], [place], [address], [facility] 0 16:22:28 Medications Name Sig Start Date Stop Date Status Note LastModified by Organization Details LastModified Time quetiapin e 25 mg tablet active Not Available Not Available Not Available Santyl 250 unit/gram topical ointment 05/11 completed astopped Not Available Not Available Not Available cyclobenz aprine 10 mg tablet TAKE 1 TABLET BY MOUTH THREE TIMES DAILY NEEDED FOR MUSCLE SPASM 11/03 completed not currentl y taking 11/03/22 Not Available Not Available Not Available methocarb krys 500 mg tablet take 1 to 2 tablets by mouth three times a day if needed 09/24 completed Not Available Not Available Not Available clonidine HCl 0.1 mg tablet TAKE 1 TO 2 TABLETS BY MOUTH EVERY DAY AT BEDTIME 11/03 completed not currentl y taking 11/03/22 Not Available Not Available Not Available venlafaxi ne ER 75 mg capsule,e xtended release 24 hr TAKE 1 CAPSULE BY MOUTH EVERY DAY active Not Available Not Available No t Available nicotine 14 mg/24 hr daily transderm al patch APPLY 1 PATCH TO SKIN EVERY DAY active Not Available Not Available No t Available ibuprofen 800 mg tablet take 1 tablet by mouth three times a day if needed for pain 05/15 completed Not taking 0 SD Not Available Not Available Not Available Lidocaine Viscous 2 % mucosal solution TAKE 5 ML BY MOUTH EVERY 4 HOURS NEEDED FOR PAIN. DO NOT TAKE MORE THAN 6 TO 8 DOSES IN 24 HOUR PERIOD 11/03 completed PRN Not Available Not Available Not Available nicotine (polacril ex) 2 mg gum Chew 1 piece of gum every 2 hours by oral route as needed. 08/03 completed Not Available Not Available Not Available tizanidin e 4 mg tablet take 1 tablet by mouth three times a day for 7 days 05/10 completed Not Available Not Available Not Available valacyclo vir 1 gram tablet take 1 tablet by mouth every 12 hours for 7 days 03/18 completed Not Available Not Available Not Available hydrocodo ne 5 mg-acetam inophen 325 mg tablet take 1 tablet by mouth every 6 hours if needed for ACUTE PAIN 04/25 completed Not Available Not Available Not Available sucralfat e 1 gram tablet take 1 tablet by mouth once daily on empty stomach 08/29 completed not using 0-sk Not Available Not Available Not Available phenazopy ridine 200 mg tablet active Not Available Not Available Not Available ondansetr on HCl 4 mg tablet TAKE 1 TABLET BY MOUTH EVERY 8 HOURS active Not Available Not Available No t Available prednison e 20 mg tablet TAKE 2 TABLETS BY MOUTH DAILY FOR 5 DAYS FOR INFLAMMA TION 11/03 completed not currentl y taking 11/03/22 Not Available Not Available Not Available clonazepa m 0.5 mg tablet active Not Available Not Available Not Available clonazepa m 1 mg tablet TAKE 1 TABLET BY MOUTH TWICE DAILY NEEDED FOR 30 DAYS active Not Available Not Available No t Available venlafaxi ne ER 150 mg capsule,e xtended release 24 hr take 1 capsule by mouth every morning 05/15 completed Not taking, dose decrease d 0 SD Not Available Not Available Not Available hydroxyzi ne pamoate 50 mg capsule 09/24 completed Not Available Not Available Not Available lidocaine HCl 2 % mucosal jelly APPLY TO AFFECTED AREA 4 TIMES DAILY NEEDED 09/24 completed not using Not Available Not Available Not Available acetamino phen 300 mg-codein e 30 mg tablet active Not Available Not Available Not Available ciproflox acin 500 mg tablet Take 1 tablet twice a day by oral route for 7 days. 11/10 completed Not Available Not Available Not Available sulfameth oxazole 800 mg-trimet hoprim 160 mg tablet take 1 tablet by mouth every 12 hours for 7 days 09/24 completed Not Available Not Available Not Available omeprazol e 40 mg capsule,d elayed release TK 1 C PO QD active Not Available Not Available No t Available tramadol 50 mg tablet TAKE 1 TABLET BY MOUTH TWICE DAILY NEEDED FOR PAIN 11/03 completed not currentl y taking 11/03/22 Not Available Not Available Not Available triamcino lone acetonide 0.1 % topical cream APPLY TOPICALL Y A THIN LAYER TO THE AFFECTED AREA BID 08/29 completed not using 0 -sk Not Available Not Available Not Available ondansetr on 8 mg disintegr ating tablet dissolve 1 tablet ON TONGUE every 8 hours if needed for 5 days 04/25 completed Not Available Not Available Not Available lamotrigi ne 25 mg tablet 03/18 completed Not Available Not Available Not Available ketorolac 10 mg tablet take 1 tablet by mouth every 6 hours if needed 04/25 completed Not Available Not Available Not Available pantopraz ole 20 mg tablet,de layed release take 1 tablet by mouth once daily 10/31 completed Not Available Not Available Not Available dextroamp hetamine- amphetami ne 30 mg tablet TAKE 1 TABLET BY MOUTH EVERY MORNING 11/03 completed not currentl y taking 11/03/22 Not Available Not Available Not Available oxycodone -acetamin ophen 5 mg-325 mg tablet take 2 tablets by mouth every evening if needed and 1 tablet OVER... (REFER TO PRESCRIP TION NOTES). 11/13 completed Not Available Not Available Not Available clonidine HCl 0.2 mg tablet TAKE 1 AND 1/2 TABLETS BY MOUTH EVERY DAY AT BEDTIME 11/03 completed not currentl y taking 11/03/22 Not Available Not Available Not Available ziprasido ne 20 mg capsule active Not Available Not Available Not Available famotidin e 20 mg tablet TK 1 T PO BID active Not Available Not Available No t Available methocarb krys 750 mg tablet take 2 tablets by mouth every 6 hours if needed for muscle spasm 04/25 completed Not Available Not Available Not Available baclofen 10 mg tablet take 1/2 to 1 tablet by mouth four times a day if needed 05/10 completed Not Available Not Available Not Available cephalexi n 500 mg capsule TAKE 1 CAPSULE BY MOUTH FOUR TIMES DAILY FOR 7 DAYS active Not Available Not Available No t Available Banophen 25 mg tablet TAKE 2 TABLETS BY MOUTH THREE TIMES DAILY NEEDED FOR ALLERGIC REACTION 11/03 completed not currentl y taking 11/03/22 Not Available Not Available Not Available dexametha sone 4 mg tablet take 1 tablet by mouth once daily 04/25 completed Not Available Not Available Not Available dextroamp hetamine- amphetami ne 20 mg tablet take 1 tablet by mouth every evening 10/31 completed Not Available Not Available Not Available hyoscyami ne 0.125 mg sublingua l tablet Take 1 tablet up to 4x daily as needed for stomach cramping /spasm 11/03 completed not currentl y taking 11/03/22 Not Available Not Available Not Available promethaz ine 25 mg/mL injection solution Take 1 mL by injectio n route. 02/09 completed Verified by EC Not Available Not Available Not Available lidocaine 5 % topical patch apply 1 patch topicall y every 12 hours if needed for pain active Not Available Not Available No t Available promethaz ine 25 mg tablet TAKE 1 TABLET BY MOUTH THREE TIMES DAILY NEEDED FOR 14 DAYS 05/15 completed Not Available Not Available Not Available ibuprofen 400 mg tablet take 2 tablets by mouth three times a day with food if needed 06/08 completed Not Available Not Available Not Available nicotine 21 mg/24 hr daily transderm al patch apply 1 patch topicall y once daily 11/13 completed Not using 8-27-19 Not Available Not Available Not Available dextroamp hetamine- amphetami ne 15 mg tablet TAKE 1 TABLET BY MOUTH TWICE DAILY active Not Available Not Available No t Available gabapenti n 300 mg capsule Take 1 capsule twice a day by oral route for 30 days. 02/11 completed Not Available Not Available Not Available omeprazol e 20 mg capsule,d elayed release take 1 capsule by mouth daily for 2 weeks then take 1 capsule by ... (REFER TO PRESCRIP TION NOTES). 02/09 completed Not Available Not Available Not Available pseudoeph edrine 30 mg tablet Take 2 tablets every 4-6 hours by oral route as needed for 5 days. 12/13 completed Not Available Not Available Not Available hydroxyzi ne HCl 25 mg tablet take 1 tablet by mouth three times a day 02/09 completed Not Available Not Available Not Available morphine ER 15 mg tablet,ex tended release take 1 tablet by mouth once daily at bedtime for 14 days 09/24 completed Not Available Not Available Not Available hydrocodo ne 5 mg-acetam inophen 500 mg tablet active Not Available Not Available Not Available topiramat e 200 mg tablet TAKE 1 TABLET BY MOUTH EVERY NIGHT active Not Available Not Available No t Available mupirocin 2 % topical ointment 05/11 completed not using Not Available Not Available Not Available ziprasido ne 40 mg capsule active Not Available Not Available Not Available gabapenti n 100 mg capsule 1 po qhs x3d, then 2 po qhs x4d, then 3 po qhs active Not Available Not Available No t Available lorazepam 1 mg tablet active Not Available Not Available Not Available diazepam 10 mg tablet take 1 tablet by mouth three times a day if needed for SPASMS 09/24 completed stopped 06-14-17 JG Not Available Not Available Not Available epinephri ne 0.3 mg/0.3 mL injection , auto-inje ctor INJECT 1 PEN IN THE MUSCLE ONE TIME DIRECTED active Not Available Not Available No t Available ibuprofen 600 mg tablet take 1 tablet by mouth every 6 hours if needed for pain 05/15 completed gave her hives 0-sk Not Available Not Available Not Available levofloxa angie 750 mg tablet TAKE 1 TABLET BY MOUTH DAILY FOR 5 DAYS FOR UTI 11/03 completed Not Available Not Available Not Available zolpidem 10 mg tablet take 1/2 to 1 tablet by mouth at bedtime if needed for insomnia active Not Available Not Available No t Available methylpre dnisolone 4 mg tablets in a dose pack take as directed on pack 06/08 completed Not Available Not Available Not Available dextroamp hetamine- amphetami ne ER 30 mg 24hr capsule,e xtend release active Not Available Not Available Not Available Vitamin B-1 100 mg tablet take 1 tablet by mouth once daily active Not Available Not Available No t Available ondansetr on 4 mg disintegr ating tablet DISSOLVE 1 TABLET ON THE TONGUE EVERY 8 HOURS NEEDED FOR NAUSEA 11/03 completed not currentl y taking 11/03/22 Not Available Not Available Not Available cefdinir 300 mg capsule TAKE ONE CAPSULE BY MOUTH TWICE DAILY 11/03 completed Not Available Not Available Not Available topiramat e 100 mg tablet TAKE 2 TABLETS BY MOUTH EVERY DAY AT BEDTIME active Not Available Not Available No t Available doxycycli ne hyclate 100 mg tablet active Not Available Not Available Not Available dicyclomi ne 10 mg capsule TAKE 1 CAPSULE BY MOUTH THREE TIMES DAILY FOR 10 DAYS 05/15 completed Not Available Not Available Not Available loratadin e 10 mg tablet TK 1 T PO BID 11/03 completed not usign 0 -sk,not currentl y taking 11/03/22 Not Available Not Available Not Available prazosin 2 mg capsule active Not Available Not Available Not Available diazepam 5 mg tablet active Not Available Not Available Not Available metoclopr amide 10 mg tablet TAKE 1 TABLET BY MOUTH EVERY 6 HOURS NEEDED FOR NAUSEA OR VOMITING 11/03 completed not currentl y taking 11/03/22 Not Available Not Available Not Available amoxicill in 875 mg-potass ium clavulana te 125 mg tablet 01/19 completed Not Available Not Available Not Available nabumeton e 500 mg tablet Take 1 tablet twice a day by oral route for 30 days. 02/11 completed Not Available Not Available Not Available oxycodone 5 mg tablet TAKE 1 TABLET BY MOUTH EVERY 8 HOURS FOR 3 DAYS NEEDED FOR PAIN 11/03 completed not currentl y taking 11/03/22 Not Available Not Available Not Available aripipraz ole 20 mg tablet TAKE 1 TABLET BY MOUTH IN MORNING FOR 90 DAYS active Not Available Not Available No t Available aripipraz ole 30 mg tablet take 1 tablet by mouth once daily 10/25 completed Not Available Not Available Not Available nicotine (polacril ex) 4 mg buccal lozenge Take 1 tablet every 2 hours by oral route as needed. 09/24 completed Not Available Not Available Not Available nicotine (polacril ex) 2 mg buccal lozenge take 1 LOZENGE by mouth every 2 hours if needed 05/15 completed Not using J 8-27-19 Not using 0 SD Not Available Not Available Not Available cyclobenz aprine 5 mg tablet TAKE 1 TABLET BY MOUTH THREE TIMES DAILY FOR 7 DAYS NEEDED FOR MUSCLE SPASM 11/03 completed not currentl y taking 11/03/22 Not Available Not Available Not Available aripipraz ole 5 mg tablet TK 1 T PO QD FOR 30 DAYS THEN DISCONTI NUE 05/15 completed Not Available Not Available Not Available nitrofura ntoin monohydra te/macroc rystals 100 mg capsule active Not Available Not Available Not Available Lyrica 75 mg capsule Take 1 capsule twice a day by oral route for 30 days. 2013 active Not Available Not Available Not Avai lable lorazepam active From psychait rist - Ros Mosqueda [facility] Not Available Not Available Not Available Effexor XR active From [facility] Ros Mosqueda [facility] Not Available Not Available Not Available Topamax active Prescrib ed by Ros Mosqueda Not Available Not Available Not Available Geodon active From [facility] Ros Mosqueda [facility] Not Available Not Available Not Available quetiapin e 50 mg tablet active Not Available Not Available Not Available Vyvanse 30 mg capsule TAKE 1 CAPSULE BY MOUTH TWICE DAILY active Not Available Not Available No t Available Vyvanse 50 mg capsule TAKE 1 CAPSULE BY MOUTH EVERY DAY IN THE MORNING 11/03 completed Not Available Not Available Not Available Vyvanse 70 mg capsule TAKE 1 CAPSULE BY MOUTH EVERY MORNING. active Not Available Not Available No t Available Vyvanse 60 mg capsule TAKE 1 CAPSULE BY MOUTH EVERY DAY IN THE MORNING 05/14 completed Pt taking 30mg 05/14/23 SHERIF Not Available Not Available Not Available venlafaxi ne ER 75 mg tablet,ex tended release 24 hr active Prescrib ed by Ros Mosqueda Not Available Not Available Not Available GaviLyte- G 236 gram-22.7 4 gram-6.74 gram-5.86 gram oral solution 03/18 completed Not Available Not Available Not Available Latuda 40 mg tablet TK 1 T PO WITH FOOD EVERY EVENING 11/13 completed Not Available Not Available Not Available ascorbic acid (vitamin C) 500 mg capsule Take 1 capsule every day by oral route for 30 days. 11/03 completed Not Available Not Available Not Available Afluria 6865-1532 (PF) 45 mcg (15 mcg x 3)/0.5 mL IM syringe inject 0.5 millilit er intramus cularly active Not Available Not Available No t Available Narcan 4 mg/actuat ion nasal spray CALL 911. SPRAY THE CONTENTS OF ONE SPRAYER (0.1ML) INTO ONE NOST... (REFER TO PRESCRIP TION NOTES). active Not Available Not Available No t Available baclofen 5 mg tablet Take 1 to 2 tablets three times a day as needed 10/31 completed Not Available Not Available Not Available BinaxNOW COVID-19 Ag Self Test kit TEST DIRECTED TODAY 11/03 completed Not Available Not Available Not Available Vitals Date Recorded Body height Heart rate Oxygen saturation Oxygen saturation in Arterial blood by Pulse oximetry Provider Name and Address Organization Details Last Updated DateTime 05/15/2020 162.56 cm 115 /min 93 % 93 % Venkatesh Huizar [facility] 05/15/2020 14:47:25 Date Recorded Body height Body mass index (BMI) Body weight Provider Name and Address Organization Details Last Updated DateTime 08/29/2020 162.56 cm 26.6 kg/m2 03660.82 g Tricia Mark [facility] 08/29/2020 13:29:09 Date Recorded Body height Body mass index (BMI) Body weight Heart rate Systolic blood pressure Diastolic blood pressure Provider Name and Address Organization Details Last Updated DateTime 3 165.1 cm 28.3 kg/m2 91476.7 g 107 /min 127 mm[Hg] 87 mm[Hg] Dina johnson [facility] 3 11:15:01 Date Recorded Body height Body mass index (BMI) Body weight Heart rate Systolic blood pressure Diastolic blood pressure Provider Name and Address Organization Details Last Updated DateTime 3 165.1 cm 29.1 kg/m2 25858.6 6 g 88 /min 118 mm[Hg] 78 mm[Hg] Kathy Bruce MA [facility] 3 10:49:25 Date Recorded Oxygen saturation Oxygen saturation in Arterial blood by Pulse oximetry Provider Name and Address Organization Details Last Updated DateTime 11/05/2022 98 % 98 % Brina Mas NP [address] [place] [address], [id number], [facility] 11/05/2022 11:49:50 Date Recorded Body height Body mass index (BMI) Body weight Heart rate Systolic blood pressure Diastolic blood pressure Provider Name and Address Organization Details Last Updated DateTime 3 165.1 cm 29 kg/m2 07879.8 7 g 70 /min 116 mm[Hg] 76 mm[Hg] Kathy Bruce MA [facility] 3 09:01:32 Social History Question Answer Notes LastModified by Organizat ion Details LastModified Time Tobacco Smoking Status Former Smoker quit end November 2019 quit 05/29/2016 Smoking 2/daily 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 No Information not available 01/12/2013 What Is Your Level Of Alcohol Consumption? 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 1-5yearssincela [email or web address] Information not available 10/25/2017 Live Alone Or With Others? With Others Lives With Children And Boyfriend Information not available 01/12/2013 Patient Has Health Care Proxy Signed And In Chart Yes [email or web address] Information not available 05/17/2019 Marital Status Information not available 01/12/2013 What Was The Date Of Your Most Recent Tobacco Screening? 08/29/2020 [email or web address] Information not available 08/29/2020 How Many Children Do You Have? 2 1996, 1999 (no Support From Ex-) Information not available 01/12/2013 What Is Your Current Pack Years? 10packyears Information not available 10/25/2017 Seat Belts Used Routinely Yes Information not available 01/12/2013 Smoke Alarm In Home Yes Information not available 01/12/2013 At What Age Did You Start Smoking Tobacco? 14 Information not available 01/12/2013 How Much Tobacco Do You Smoke? 0.5 PPD Information not available 05/03/2019 Sex: Unknown Functional Status None recorded. Mental Status None recorded. Family History Nothing Reported Notes:Adopted - unknown biol ogical family hx Adoptive family - alcoholics, abusive Bio Paternal GM - Pancreatic Cancer BioMom - Depression + suicidal Medical History Condition Response Chronic Neck Pain Y PSYCHIATRIC Y Anxiety Y Depression Y Psychiatric Disorders Y Chronic Back Pain Y Gynecological History Statement/Question Response Menses Monthly N Hysterectomy Y History of Abnormal Pap Y Obstetrics History GPAL:G 0 P 0 0 0 0 Past Encounters Encounter ID Performer Location Encounter Start Date Encounter Closed Date Diagnosis/Indication Diagnosis SNOMED-CT Code Diagnosis ICD10 Code Diagnosis Note [id number] ALIX Chan , [facility], OFFICE [address] [place] [phone] 6 01/12/2013 08:15:47 01/12/2013 09:12:16 [id number] Dina Lester RN FP, [facility], OFFICE [address] [place] [address] 88559-095 6 11/03/2013 09:37:04 11/03/2013 10:30:14 Urinary tract infectious disease 68294506 Patient instructed to push fluids, to follow up for persistent or worsening symptoms or fever or back pain. Nausea and vomiting 59106161 discussed danger of OD'ing on OTC pain meds, pt expressed understand ing. check labs Pyelonephritis 12745686 suspect possible pyelo given n-v. Also has back pain although it is low back and no CVT but will rx for pyelo top be safe. [id number] Claribel Abbott LPN FP, [facility], OFFICE [address] [place] [address] [phone] 6 11/17/2013 10:06:15 11/17/2013 11:00:41 Backache 064630603 unusual presention w/ tenderness to light touch (not limited to a dermatome) as well as musculoske letal type pain. will start gabapentin at bedtime, advise to see physiatry and f/u w/ PCP [id number] CHIP Blackwell, [facility], OFFICE [address] [place] [address] 13030[address]515 6 12/04/2013 13:39:46 12/04/2013 15:50:40 Adult health examination 254633784 see Risk Assessment and Lifestyle Change Counseling section above Counseling [id number] Backache 654521554 Pt briggs d to stop taking gabapentin due to worsening headache. She has an appointmen t scheduled with physiatry for the beginning of december. She is already on topamax which isn't helping with side pain, although PT is helping with back pain. Pt doesn't want to have to rely on vicodin given family hx of addiction. Pt doesn't want to take it jail if possible. Will put in PA for lyrica for now. [id number] CHIP Gonzalez, [facility], OFFICE [address] [place] [address] [id number] 6 03/12/2015 11:56:10 03/13/2015 07:51:28 Herpes zoster 2504890 classic rash on L leg appears S4 or L 3 dermatome based on position does not cross midline discussed expected course and expect improvemen t in next 1-2 weeks PHN possible and pt to return if pain lingers t/c TCA at that time +/- pred antiviral + oxycodone follow up as needed we reviewed that if significan t worse in the next 3 days, could be a bacterial infection and she should call to think about f/up visit to consider change to abx [id number] , [facility], OFFICE [address] [place] [address] 99869-695 6 06/11/2015 09:04:37 06/11/2015 09:33:19 Hip pain 83697721 M25.163 [id number] Brina Mas NP , [facility], OFFICE [address] [place] [address] [id number] 6 12/04/2015 16:25:02 12/04/2015 17:11:43 Tobacco user 981321190 Z72.0 Urine color abnormal 167 658437 R82.90 Abdominal pain 68289578 R10.9 Diarrhea 51455151 R19.7 x2 months [id number] Kathy Peck NP , [facility], OFFICE [address] [place] [address] [id number] 6 12/12/2015 16:46:06 12/12/2015 17:19:34 Abdominal pain 05685590 R10.9 Unclear eitiology Diarrhea 27148938 R19.7 Labs are stable except for Lipase [id number] ROXI Avelar, [facility], OFFICE [address] [place] [address] 97062-037 6 01/13/2016 12:34:29 01/13/2016 13:52:12 Nicotine dependence 76449199 Z87.891 Tobacco user 671596606 Z 72.0 Abdominal pain 91286450 R10.9 Mass of yolis dy structure 941565299 R22.9 [id number] Veronica UGALDE, [facility], OFFICE [address] [place] [address] 97079-897 6 03/18/2016 09:08:30 03/18/2016 09:36:19 Cervical radiculopathy 68895369 M54.12 Arm pain is likely coming from neck. Pt prefers to avoid steroids due to concerns over it triggering keaton, which is understand able. Will prescribe anti-infla mmatory, have pt increase the referRecom mendations as below. [id number] Audrey Sierra, PT Physical Therapy, [address] [address]44[address] 6 03/31/2016 16:05:07 04/06/2016 07:38:41 Cervical radiculopathy 46549648 M54.12 [id number] Veronica Mosqueda , [facility], OFFICE [address] [place] [address] [id number] 6 06/08/2016 15:38:26 06/08/2016 16:57:30 Cigarette smoker 79483713 F17.210 Tobacco user 212599943 Z 72.0 Epigastric pain 18117444 R10.13 Recom Diarrhea 74650160 R19.7 Bipolar disorder 7645597 4 F31.9 [id number] Joana Peters NP , [facility], OFFICE [address] [place] [address] [id number] 6 08/03/2016 11:05:48 08/03/2016 13:08:00 Cigarette smoker 83133990 F17.210 Tobacco user 505553473 Z 72.0 Breast lump 66428023 N63 [id number] Evon Rivas , [facility], OFFICE [address] [place] [address] [id number] 6 09/08/2016 11:44:25 09/08/2016 13:13:25 Cellulitis 268251294 L03.90 Plan as below. [id number] Veronica UGALDE, [facility], OFFICE [address] [place] [address] [id number] 6 09/29/2016 13:21:53 09/29/2016 13:55:39 Cellulitis 414251401 L03.90 Milder infection than last time. Will change antibiotic as pt with incomplete response to antibiotic last time, refer back to surgery for lumps and ?infection , and prescribe medication for pain management Breast lump 29390361 N63 Three tiny ones. [id number] Veronica UGALDE, [facility], OFFICE [address] [place] [address] [id number] 6 01/19/2017 10:42:23 01/19/2017 12:59:58 Ulceration of breast 964580267 N61.1 L breast, nonhealing , but some granulatio n tissue present. Will call breast center to try to get pt appointmen t there. Other plans as below. Breast lump 09640309 N63 [id number] CHIP Gonzalez, [facility], OFFICE [address] [place] [address] [phone] 6 05/04/2017 15:12:51 05/04/2017 16:01:42 Breast lump 07182479 N63 Will get mammo and breast U/S; hopefully this is simple cyst. Chest pain 02101028 R07. 9 EKG normal. Chest wall tenderness . Likely strained ribs. Cigarette smoker 3273591 7 F17.210 Tobacco user 840608684 Z 72.0 [id number] Veronica UGALDE, [facility], OFFICE [address] [place] [address] 78723-079 6 05/11/2017 13:52:29 05/11/2017 14:49:50 Cigarette smoker 34125971 F17.210 Pt has patches. Plan as below. Tobacco user 202164711 Z 72.0 Low back pain 079957966 M54.5 Pt with pain poorly controlled due to erratic medication use. Plan to get it back under control as below. Pt with only #9 percocet right now, so will need extra script. Recommenda tions as below. [id number] Veronica UGALDE [facility] OFFICE [address] [place] [address] 03071-118 6 05/18/2017 11:25:57 05/18/2017 12:40:15 Intervertebral disc disorder of lumbar region with myelopathy 63456588 M51.06 Plan as below. Cigarette smoker 6080516 7 F17.210 Plan as below. Tobacco user 241544987 Z 72.0 [id number] Veronica UGALDE, [facility], OFFICE [address] [place] [address] 69736-326 6 06/14/2017 14:18:29 06/14/2017 14:59:45 Cigarette smoker 93424263 F17.210 Tobacco user 173363159 Z 72.0 Interverte bral disc disorder of lumbar region with myelopathy 82576710 M51.06 Pt unable to get to PT here; will refer to [facility] down where she is and give a second script of both medication s for now until she can get scheduled with them. Other plans as below. Cellulitis and abscess of breast 965929632 N61.1 L breast. mostly indurated without any fluctuance . 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 Scripts given to fill next week; she knows we can't replace those. Cigarette smoker 3867485 7 F17.210 Pt will retry again when she is further out from . Tobacco user 188561679 Z 72.0 Cellulitis and abscess of breast 934921210 N61.1 L breast. Will change antibiotic and plan on referring to [facility] for surgery assessment . [id number] Kathy Peck NP , [facility], OFFICE [address] [place] [address] 25997-816 6 09/24/2017 08:05:07 09/24/2017 10:03:04 Cigarette smoker 26169223 F17.210 Tobacco user 133390273 Z 72.0 Chest pain 85138831 R07. 9 Diarrhea 52296472 R19.7 Chronic- will follow up w/ gastroente rology Nausea and vomiting 1693 1999 R11.2 -bland diet-incre ase clear fluids-adv ance diet as tolerated- labs today-foll ow up in 1 week-call w/ any new concerns.- encouraged to stop smoking marajauna as might be cause of throwing up Palpitations 51463728 R0 0.2 -holter monitor applied today [id number] Liliane Beckman RN BSN , [facility], OFFICE [address] [place] [address] [id number] 6 09/28/2017 09:40:53 09/28/2017 12:05:14 Palpitations 78795100 R00.2 -holter monitor applied today [id number] MD TARM Olson, [facility], OFFICE [address] [place] [address] [phone] 6 10/25/2017 15:40:39 10/25/2017 17:06:21 Pruritic disorder 433806784 L29.9 Abdominal bloating 51897 9008 R14.0 [id number] TRAM, [facility], OFFICE [address] [place] [address] [id number] 6 02/09/2018 08:57:01 02/09/2018 10:24:40 Low back pain 354803509 M54.5 Pain also consistent with lumbar strain.Dis cussed rest, ice/heat, ibuprofen. Trial baclofen as she could not tolerate cyclobenza florencia.PT eval. Flank pain 679096685 R10 .9 Constant and colicky flank pain radiating to groin with microscopi c hematuria suggestive of renal stones.Ult rasound in ED 6 days ago negative.W ill check labs and CT.Push fluids. Continue ibuprofen. [id number] DAVID Hobbs, [facility], OFFICE [address] [place] [address] 79469-767 6 02/11/2018 09:22:09 02/11/2018 11:23:06 Lower abdominal pain 97011243 R10.30 U/A today reveals 3+ blood, 1+ protein, trace leuksCT scan is scheduled at [facility] today at 11 AM, but with increased pain, we reviewed the options and pt is opting to go to ER for further management Expect paperwork filled out for [facility] ER [id number] MD TRAM Olson, [facility], OFFICE [address] [place] [address] [id number] 6 07/25/2018 10:55:57 07/25/2018 13:54:21 Acute upper respiratory infection 34426094 J06.9 Acute low back pain 2788 20290 M54.5 Cigarette smoker 5736658 7 F17.340 [id number] Veronica UGALDE, [facility], OFFICE [address] [place] [address] [id number] 6 10/31/2018 13:27:39 10/31/2018 14:16:45 Cigarette smoker 39660261 F17.210 Will send script for patches at higher dose; pt has lonzenges. Tobacco user 218620416 Z 72.0 Bipolar disorder 3135495 4 F31.9 Agree pt disabled from bipolar; would defer to specialty providers for this paperwork. Badillo's esophagus 3029 50077 K22.70 Refilled medication s. Low back pain 886692909 M54.5 Pt doing home exercises as currently unable to participat e in regular PT. Ibuprofen refilled. Cervical radiculopathy 48671201 M54.12 Pt has hx of this; she is managing at the moment. Could consider sending back to physiatry if needed in the future. Acute sinusitis 11670943 J01.90 Ddx includes sinusitis versus TMJ dysfunctio n. Plan as below. [id number] ENRIQUETA Cottrell, [facility], OFF[address] [place] [address] 6 12/13/2018 16:56:10 12/14/2018 13:36:24 Tick bite 98374080 W57.XXXA Fatigue 44405195 R53.83 significan t fatigue, muscle aches x 1-2 weeks. sleeping 18 hours a day. occasional ly lightheade d. denies chest pain, palpitatio ns, sob, fever, BRIGGS. reports tick bite about 3 weeks ago before Sx started. take was engorged but she believes was on for less than 12 hours. will get labs and follow up in 2 weeks - labs tomorrow- stay hydrated- regular meals- sit and stand up slowly- follow up in 2 weeks. call sooner if worsening or new symptoms Muscle pain 48157778 M79 .10 Tobacco user 398982399 Z 72.0 no cigs in 1 week! [id number] Veronica UGALDE, [facility], [facility] [place] [address] 6 01/12/2019 11:11:42 01/12/2019 12:45:40 Cigarette smoker 36526593 F17.210 Pt using patch and cutting down. Tobacco user 479898062 Z 72.0 Fatigue 68926062 R53.83 Recommend nonfasting labwork today for fatigue, particular ly given PPI use. Rib pain 195767326 R07.8 1 Unclear what is driving this. Nausea 789404661 R11.0 Will treat with nausea medication and an anti-spasm otic in case that is driving the stomach pain. Spasm of back muscles 20 0614483 M62.830 Plan as below. [id number] [facility], OFF[facility] [address] [place] [address] 01/19/2019 10:35:37 01/19/2019 11:30:56 Splenomegaly 33267395 R16.1 Left upper quadrant pain 111735060 R10.12 Ddx includes gastritis, PUD, diverticul itis (less likely with normal CT), less likely pancreatit is (normalize d lipase in ER and normal CT). Unclear where splenomega ly may come into this so will order U/S of that although usually not causing of pain Diarrhea 98629349 R19.7 Gastroesop hageal reflux disease 514848072 K21.9 [id number] [facility], [facility] [place] [address] 6 04/25/2019 09:21:15 04/25/2019 10:03:34 Cigarette smoker 38068695 F17.210 Pt using patch and cutting down. Tobacco user 047367266 Z 72.0 Nausea and vomiting 1693 2000 R11.2 Low back pain 428286711 M54.5 Pt with severe pain, numbness in leg, abnormal DTR on L, trouble emptying bladder. Would like to try to get urgent MRI as question if having disc disease that may require surgical interventi on. [id number] Marisol Barrios , [facility], OFF[address] [place] [address] 6 05/03/2019 14:41:41 05/03/2019 15:34:28 Cigarette smoker 44562553 F17.210 Pt using patch and cutting down. Tobacco user 841105792 Z 72.0 Paresthesia 62263200 R20 .2 Feet and hands and perineum. Lumbar MRI unchanged from 2017 and that wouldn't cause a problem with the hands. Would recommend MRI of the brain to evaluate for more systemic cause. Cobalamin deficiency 190 788315 E53.8 Will check B vitamins to make sure no deficiency . Low back pain 398298722 M54.5 Pt with severe pain, numbness in leg, abnormal DTR on L, trouble emptying bladder. Now with some incontinen ce both fecal and urinary. No spinal cord compressio n seen on MRI which is good but unclear what is happening. [id number] Veronica Mosqueda , [facility], [facility] [place] [address] 6 05/10/2019 14:02:38 05/11/2019 15:45:46 Low back pain 919847593 M54.5 Pt with severe pain, numbness in leg, abnormal DTR on L, trouble emptying bladder. Now with some incontinen ce both fecal and urinary. No spinal cord compressio n seen on MRI which is good but unclear what is happening. MRI brain also normal. Will talk to neurosurg/ physiatry about options for interventi on. Paresthesia 55513021 R20 .2 MRI was normal. Will check lyme, B6, lead. Will trial steroid burst but not too high of dose due to hx of bipolar. [id number] Veronica Mosqueda , [facility], [facility] [place] [address] 06/05/2019 12:08:11 06/05/2019 14:05:31 Paresthesia 85985323 R20.2 Feet and hands and perineum. Lumbar MRI unchanged from 2017 and that wouldn't cause a problem with the hands. MRI was normal. Neurosurge ry doesn't feel that this is related to back. Will treat B1 and see if that helps. Cobalamin deficiency 190 982503 E53.8 B1 was slightly low. Will replete Cigarette smoker 0794693 7 F17.210 Pt using patch and cutting down. Tobacco user 392183363 Z 72.0 Low back pain 835471086 M54.5 Pt with severe pain, numbness in leg, abnormal DTR on L, trouble emptying bladder. Now with some incontinen ce both fecal and urinary. No spinal cord compressio n seen on MRI which is good but unclear what is happening. Neurosurge ry does not feel this is back, which is a bit confusing. CT abdomen/pe lvis in December did not show any mass, which is reassuring . Will order aqua therapy but also follow up on ortho referral. Sprain of foot 79878256 S93.602D More likely sprain, but plan on follow-up as below in case symptoms are worsening. [id number] Veronica Mosqueda , [facility], OFFICE [address] [place] [address] 16102[address]929 6 11/14/2019 11:47:05 11/14/2019 17:58:18 Cigarette smoker 69317094 F17.210 Pt using patch and cutting down. Tobacco user 841484768 Z 72.0 Pruritic disorder 076220 002 L29.9 Will test labwork for underlying issue. Question if could be more of an allergic reaction, however, and would also refer to an production department supervisor for further evaluation . Fatigue 20787402 R53.83 Will also reevaluate labwork for this. Epigastric pain 77163321 R10.13 Recom [id number] Veronica UGALDE, [facility], OFFICE [address] [place] [address] 9[address]50[address] 6 01/10/2020 15:10:46 01/10/2020 16:10:56 Cigarette smoker 06947588 F17.210 Pt quit last month (11/2019) cold turkey, which is fantastic. Tobacco user 583028061 Z 72.0 Mass of right breast 378 6429307 1733139 N63.10 Ordered mammo; pt would want to see provider at [facility] if needing to see someone so will do there. Nausea and vomiting 1691999 R11.2 Will try to break cycle. Epigastric pain 30831426 R10.13 Suspicious vomiting cycle has aggravated stomach as pt can't take normal meds. Recommend dicyclomin e first and then can try mucosal lidocaine if not helping. [id number] ENRIQUETA Solano, [facility], OFFICE [address] [place] [address] 29677-452 6 05/15/2020 14:30:25 05/17/2020 13:05:48 Urinary tract infectious disease 58062684 N39.0 Patient instructed to push fluids, to follow up for persistent or worsening symptoms or fever or back pain. [id number] MD TRAM Orellana, [facility], OFFICE [address] [place] [address] 6 08/29/2020 13:25:20 08/29/2020 17:08:11 Pain in right lower limb 705279088 M79.604 Bipolar disorder 6491140 4 F31.9 [id number] Bethanie Valenzuela PA-C , [facility], OFF[address] [place] [address] 11/03/2022 11:08:49 11/04/2022 09:43:34 Syncope 218173201 R55 - pt reporting three syncopal episodes in the last two days, no warning and wakes on the floor with no memory of the incident- advised to proceed to ER (do not drive) and patient agrees with plan- she will follow up in the office after the ER visit Blood in urine 28860525 R31.9 - since yesterday, advised to mention in ER visit [id number] Kathy Bruce MA , [facility], OFF[address] [place] [address] 11/05/2022 10:42:31 11/13/2022 10:29:16 Active or passive immunization 625187297 Z23 TD: DeclinesFl u: DeclinesCo vid: Declines Tobacco user 847539691 Z 72.0 We discussed your smoking today for more than 3 minutes. Cigarette use is the leading cause of preventabl e disease, disability , and in the [place]. We talked about tools and medication s available to help you in smoking cessation. We discussed utilizing our smoking cessation wellness coach and online resources. Your personal goal: taper with nicotine repalcemen t2-10 cigs a day Syncope 875588256 R55 multiple episodes of loss of consciousn ess, 3-4, in the last couple weeks. unprovoked and no presyncopa l symptoms. Mostly unwitnesse d. EKG NSR today. Will check ODS. Last used cocaine a week ago and marijuana yesterday. Per pt the marijuana was from a dispensary . She is reporting a number of other symptoms in the last few weeks including daytime somnolence , joint pain, intermitte nt edema, itching, tongue pain. No dyspnea. Seen virtually 2 days ago and advised to go to the ED but did not. Declines ED eval again at this time. Will continue work up with labs and Head CT. Pt advised not to drive. Her will drive her today. Report new/worsen ing symptoms or recurrent loss of consciousn ess. case discussed with EC and LS Leukocytes in urine 2757 20772 R82.79 recently tx for UTI at the ED. will recheck urine culture given atypical symptoms Glossodynia [id number] K14 .6 unclear etiology. will check B12 Multiple joint pain [id number] M25.50 working up with labs. No current joint swelling Cocaine abuse [id number] F 14.10 last used a week ago. I strongly recommend avoiding this especially while feeling unwell [id number] Brina aMs, ENRIQUETA , [facility], OFFICE [address] [facility] [place] [phone] 05/14/2023 08:54:53 05/17/2023 12:46:47 Active or passive immunization [id number] Z23 TD: DeclinesFl u: DeclinesCo vid: Declines recommende d Daytime somnolence [id number] 00 R40.0 Fatigue and significan t daytime somnolence and is no longer driving. Possibly multifacto rial given abnormal UDS in October. [place] scale 20. Referring for sleep med consult. She will do labs now, ordered back in october for similar symptoms. Long-term current use of drug therapy [id number] Z79.899 UDS positive for cocaine, fentanyl, heroin, opiates, morphine when checked in October. She denies drug use other than marijuana that does not come from a dispensary . Will recheck UDS today. Follow up with pcp in 1 month Peripheral edema [id number] 00 R60.9 pt w/ recurrent report of lower extremity edema. No edema on exam today. LCTA. pt denies dyspnea. Will continue to monitor. Can try compressio n during the day as needed. Elevate legs when possible Bipolar disorder [id number] F31.9 Continue with psych. Consider Health Concerns Section Related Observation LastModified by Organization Detai ls LastModified Time None Recorded Concern Status LastModified by Organization Details LastModified Time None Recorded Advance Directives Directive N: Payers Encounter Date Sequence Insurance Name Policy Number Policy Rios Covered Member ID Rios Member ID Guarantor Name 05/15/2020 1 [place] [facility] PRIOR TO 11/28/2022 - [facility] (MEDICAID) Dominique Teea [id number] Dominique Teea 08/29/2020 1 [place] PRIOR TO 2022 - [facility] (MEDICAID) Dominique Teea [id number] Dominique Teea 11/03/2022 1 [place]IOR [place] 2022 - [facility] (MEDICA[place]) Dominique eTea [id number] Dominique Suzy 11/05/2022 1 [place] 2022 - [facility] (MEDICA[place]) Dominique Teea [id number] Dominique Teea 05/14/2023 1 [facility] - DOS ON OR AFTER 2022 - [facility] (MEDICAID REPLACEMENT - HMO) Dominique Teea [id number] Dominique Almonte Notes Date Note Type Note Provider Name and Address Organization Details Recorded Time 05/15/2020 text/html Dysuria urinary symptomsReported bypatient.Duration:Sym ptoms are intermittent; Symptoms began 2 days ago Severity:Symptoms improving; Symptoms are mild Associated Symptoms:No burning sensation on urination; No urinary frequency; No pressure on urination; No urinary hesitancy; No blood in the urine; No fever; No abdominal pain; No blisters on genitals; No rash on genitals;Smaller urine stream;Flank pain(hips); main concern is very different smell Context:No prior history of STDs; No known exposure to STD; Sexually active; mutually monog relationship 05/15/2020 intake time 12 min 18 secThis was a telehealth video visit using TheraSim in lieu of in-person visit due to the Covid 19 pandemic. Patient was notified that the provider location is home office. Patient location is home. During the visit the patient's medical history and medical record are reviewed. The patient is notified to call our office for worsening or urgent symptoms, and to schedule an in person visit if needed. Joana Peters NP [address] [place] [address], [phone], [facility] 05/15/2020 15:03:43 08/29/2020 text/html This a virtual v isit due to covid pandemic.08/29/2020Tim e for intake: {{1 2 3 4* 5 6 7 8 9 1 0 11 12 13 14 15 16 17 18 19 20 21 22 23 24 25}} minutes.Patient is complaining of pain in her right inner thigh. She states that she was seen on August 25 at the [facility] emergency room and was told she had a blood clot. She now states that the pain is so severe that she cannot bear weight and that she finds that anything touching it such as her clothing causes severe pain. There is no other systemic symptoms. She did fall on ice from her freezer in her kitchen a couple weeks ago but apparently was seen in a different emergency room in follow-up of that and x-rays of the hip were negative. Michael Finn MD [address] [place] [address], [phone], [facility] 08/29/2020 13:51:23 11/03/2022 text/html Presents for ER follow up.- went to ER for abdominal pain by ambulance, and pain in lower back- was treated for UTI, CT scan was negative- completed antibiotic course- reports she has not felt well since- has itchiness across her entire body- having difficulty swallowing- reporting syncopal episodes - 3 in the last two days- the first episode occurred while walking on the street, woke up on the ground and does not remember this happening- last night, was doing dishes and woke up on the floor without any warning symptoms- reporting edema across body- reporting hematuria- worsening anxiety Bethanie Valenzuela PA-C [address] [place] [address], [phone], [facility] 11/03/2022 11:25:04 11/05/2022 text/html a/vmg-smoking [id number] bypatient.Notes:a couple cigs a day. interested in nicotine replacement 47yo F presents for follow up on a number of concerns- seen 2 days ago and was rec to go to the ED for recurrent unexplained loss of consciousness- she did not go to the ED. Did not want to wait- last loss of consciousness was at the sink in her home a couple days ago. then woke up on the ground, unwitnessed. She does not know how long she was out. This has occurred 3-4 times so far. witnessed twice by a friend. pt reports her friend said she was moving some one of the times- this started a few weeks ago. started not feeling well when she was in [place]. was at friends house in [place]. smelled like strong urine- she has been having trouble staying awake. sleeping well at night too- ED [place] 11/02 and tx for UTI- no new medications. Sx started gradually- No Dyspnea- chest pain a few nights ago. after the ED visit. then a bad BRIGGS. All resolved- no palpitations- no recent alcohol- smoking pot, yesterday. from dispensary- crack cocaine occasionally. last was a week ago- blurry vision. film over her eyes for a couple weeks- itchy all over- tongue hurts, diffuse joint pain- edema face, legs, arms but has resolved LAST VV 11/03/22Presents for ER follow up.- went to ER for abdominal pain by ambulance, and pain in lower back- was treated for UTI, CT scan was negative- completed antibiotic course- reports she has not felt well since- has itchiness across her entire body- having difficulty swallowing- reporting syncopal episodes - 3 in the last two days- the first episode occurred while walking on the street, woke up on the ground and does not remember this happening- last night, was doing dishes and woke up on the floor without any warning symptoms- reporting edema across body- reporting hematuria- worsening anxiety Brina Mas NP [address] [place] [address], [phone], [facility] 11/05/2022 13:30:33 05/14/2023 text/html 47yo F presents with c/o edema, etc. lower leg swelling for a few weeks though not today. She was also in the office in October of this year with the same concern- tired all the time- falling asleep all the time. not driving because of this- sleeping well at night- having night sweats- does not think she snores- body aches- no dyspnea- no chest pain- UDS positive for cocaine, fentanyl, heroin, opiates, morphine when checked in October. She did not have the blood work ordered in October. She expresses being surprised of this drug screen result. Denies current drug use other than marijuana. She does not get her marijuana at a dispensary Bipolar disorderpsych once a month. no current therapy - vaginal itching and discharge for a couple weeks. white. will try OTC Monistat 7 and follow up if not resolving LAST OV47yo F presents for follow up on a number of concerns- seen 2 days ago and was rec to go to the ED for recurrent unexplained loss of consciousness- she did not go to the ED. Did not want to wait- last loss of consciousness was at the sink in her home a couple days ago. then woke up on the ground, unwitnessed. She does not know how long she was out. This has occurred 3-4 times so far. witnessed twice by a friend. pt reports her friend said she was moving some one of the times- this started a few weeks ago. started not feeling well when she was in [place]. was at friends house in [place]. smelled like strong urine- she has been having trouble staying awake. sleeping well at night too- ED [place] 11/02 and tx for UTI- no new medications. Sx started gradually- No Dyspnea- chest pain a few nights ago. after the ED visit. then a bad BRIGGS. All resolved- no palpitations- no recent alcohol- smoking pot, yesterday. from dispensary- crack cocaine occasionally. last was a week ago- blurry vision. film over her eyes for a couple weeks- itchy all over- tongue hurts, diffuse joint pain- edema face, legs, arms but has resolved LAST VV 11/03/22Presents for ER follow up.- went to ER for abdominal pain by ambulance, and pain in lower back- was treated for UTI, CT scan was negative- completed antibiotic course- reports she has not felt well since- has itchiness across her entire body- having difficulty swallowing- reporting syncopal episodes - 3 in the last two days- the first episode occurred while walking on the street, woke up on the ground and does not remember this happening- last night, was doing dishes and woke up on the floor without any warning symptoms- reporting edema across body- reporting hematuria- worsening anxiety Brina Mas NP [address] [place] [address], [phone], [facility] 05/16/2023 19:14:34 OBGyn Episode No OBEpisode recorded.
--- OUTSIDE RECORDS SUMMARY | 2024-11-13 14:32 | XMS_ITS ---
Author Organization [facility] Address [address] [place] [address] Care Team Providers Care Operating Room Surgical Technician Name Role Phone Ros Barry Primary Care Provider [phone] REASON FOR VISIT update plan Encounters Encounter Location Date Provider Diagnosis [place] [address] [place] [address] 01/06/2024 Ros Barry Plan Of Treatment No Information Progress Notes * Dominique PRADODOB:1975 (48 yo F)Acc No.[id number]:01/06/2024 Patient:?Dominique PRADO :1975???Age:48 Y???Sex:Female Address:[address], [place], [address] * true * Date:? Generated for Aleta krishna/Derek/eTransmitting on:?11/13/2024 02:31 PM EDT
== END 2024-11-13 12:25 | disposition home or self-care (01) ==
LOC: HO.MAMMO 12:24
DX: Z12.31 Encounter for screening mammogram for malignant neoplasm of breast (principal)
CPT/HCPCS: 77063; 77067

== ENCOUNTER → 2024-11-13 12:30 | Outpatient (BNV) | payer OTHER, SELFPAY | PROVIDERS: Visit Provider Internal Medicine | DX: Z12.31 Encounter for screening mammogram for malignant neoplasm of breast (principal) | CPT/HCPCS: 77063; 77067 ==

== ENCOUNTER 2024-11-21 16:44 | Emergency (ER) | payer OTHER, SELFPAY ==
[2024-11-21] VITALS (7 sets, daily range): BP systolic 105–140; BP diastolic 65–75; PULSE 65–84; RESP 12–16; TEMP 36.2–36.8; O2SAT 94–100; BMI 31.0
--- NOTE | 2024-11-21 | ECG_ITS ---
Test Reason : SOB Blood Pressure : */* mmHG Vent. Rate : 72 BPM Atrial Rate : 72 BPM P-R Int : 142 ms QRS Dur : 76 ms QT Int : 494 ms P-R-T Axes : 43 13 56 degrees QTcB Int : 540 ms Normal sinus rhythm Prolonged QT Abnormal ECG When compared with ECG of 13-May-2024 11:23, QT has lengthened Referred By: Generic ED Physician Electronically Signed By: JAYLEN MUJICA MD
--- NOTE | ~2024-11-21 | CT_ITS ---
CLINICAL HISTORY: fall CT head without contrast Comparison: None Findings: No intracranial mass, midline shift, hydrocephalus, or acute hemorrhage. No acute process in sinuses or mastoids. No acute bony abnormality. Impression: No acute intracranial process This document has been electronically signed by: Santiago Davenport MD on 11/21/2024 19:06:30
--- NOTE | ~2024-11-21 | CT_ITS ---
CLINICAL HISTORY: epiglotitis abscess CT soft tissue neck with contrast Comparison: None Findings: Soft tissue prominence along posterior wall of hypopharynx. This is at the level of the area of the glottic folds. No epiglottis or aryepiglottic fold edema noted. Hypopharyngeal airway is narrowed and anteriorly displaced. Findings raise concern for mass.Recommend direct visualization. This is at the C4 vertebral body level. Tonsils, adenoids and epiglottis are within normal limits. Bilateral parotid and submandibular glands unremarkable. No significant adenopathy in the neck by size criteria. Airway midline without deviation or displacement. No foreign bodies are demonstrated. Left maxillary and right ethmoid sinus mucosal thickening. Remaining sinuses and bilateral mastoids clear. No acute bony abnormalities demonstrated. Visualized bilateral upper lungs are clear. Aberrant right subclavian artery origin noted. Impression: Prevertebral soft tissue prominence at C4 level as above Finding impresses on hypopharynx airway and displaces airway Possible mass, recommend direct visualization This document has been electronically signed by: Santiago Davenport MD on 11/21/2024 19:14:47
[2024-11-21 17:51] LABS: Alanine Aminotransferase 101 U/L (0-31); Albumin Level 3.7 g/dL (3.5-5.0); Alkaline Phosphatase 62 U/L (39-117); Anion Gap 15 (12-20); Aspartate Amino Transferase 137 U/L (5-31); Bilirubin Direct 0.1 mg/dL (0.0-0.5); Bilirubin Total 0.5 mg/dL (0.0-1.0); Blood Urea Nitrogen 19 mg/dL (9-16); Calcium 8.6 mg/dL (8.4-10.2); Carbon Dioxide 26 mmol/L (22-29); Chloride 98 mmol/L (96-108); Creatinine Clr Calc Pharmacy 116.5; Estimated Glomerular Filt Rate > 60; Glucose Random 113 mg/dL (60-115); Magnesium 1.7 mg/dL (1.6-2.6); Potassium 3.4 mmol/L (3.3-5.1); Sodium 136 mmol/L (135-145); Total Protein 6.7 g/dL (6.5-8.0)
[2024-11-21 17:53] LABS: VBG pCO2 44 mmHg; VBG pO2 41 mmHg
[2024-11-21 17:54] LABS: VBG Base Excess 13.9 mmol/L; VBG HCO3 38 mmol/L (22-26)
[2024-11-21 17:55] LABS: Venous Blood Gas Refer to POC result
--- NOTE | 2024-11-21 17:59 | ED_ITS ---
HPI - General Adult General Chief complaint: Dyspnea Stated complaint: throat swelling, unable to swallow, diff breathing Time Seen by Provider: 11/21/24 17:35 Source: patient Mode of arrival: EMS Limitations: no limitations History of Present Illness ED Provider: HPI narrative: Patient history of anxiety migraine depression GERD was apparently in good health for last 4 days been in vomiting 2 days ago patient was feeling very sick and had a syncope episode while brushing her teeth hand was under the chin and she had since then feeling and pain voice no fever no chills patient was seen at urgent care center they did the x-ray of the neck and noticed steeples sign in xray was given IV Solu-Medrol treatment and epinephrine Related Data Home Medications ?Medication ?Instructions ?Recorded ?Confirmed aripiprazole 10 mg tablet 10 mg PO DAILY 09/01/24 09/21/24 clonazepam 1 mg tablet 1 mg PO BID PRN 09/01/24 09/21/24 dextroamphetamine-amphetamine 15 1 tab PO BID 09/01/24 09/21/24 mg tablet venlafaxine 75 mg capsule,extended 75 mg PO QAM 09/01/24 09/21/24 release 24 hr Previous Rx's ?Medication ?Instructions ?Recorded esomeprazole magnesium 40 mg 40 mg PO DAILY #30 caps 09/01/24 capsule,delayed release (Nexium) linaclotide 145 mcg capsule 145 mcg PO DAILY #30 caps 09/01/24 (Linzess) cholecalciferol (vitamin D3) 125 125 mcg PO DAILY #90 caps 09/22/24 mcg (5,000 unit) capsule Allergies Allergy/AdvReac Type Severity Reaction Status Date / Time Penicillins Allergy Severe Anaphylaxis Verified 11/21/24 16:50 acetaminophen [From Tylenol] Allergy Intermediate Hives Verified 11/21/24 16:50 aspirin [ASPIRIN] Allergy Intermediate UNKNOWN Verified 11/21/24 16:50 gabapentin Allergy Intermediate Hives Verified 11/21/24 16:50 varenicline [From CHANTIX] Allergy Intermediate HIVES Verified 11/21/24 16:50 ibuprofen Allergy Anaphylaxis Verified 11/21/24 16:50 lurasidone [From Latuda] Allergy Unknown Verified 11/21/24 16:50 Bees Allergy Intermediate Anaphylaxis Uncoded 11/21/24 16:50 cefuroxime Allergy Mild Itching Uncoded 11/21/24 16:50 Review of Systems 2 Review of Systems: Yes all other systems are reviewed and are negative [facility] Past Medical History Medical History Tongue swelling Vomiting Trichomonas infection Cervical cancer Badillo's esophagus Encounter for screening colonoscopy (~2019) Hiatal hernia Depression Anxiety Surgical History H/O endoscopy (~2019) S/P tonsillectomy H/O: hysterectomy (~1999) Family History Family History Other Adopted Social History Social History Household Members: Significant Other Housing: Apartment Alcohol intake: never Patient Tobacco Use Status: Former Tobacco user Tobacco use type: Cigarette Cigarette Packs Per Day: 0.5 Cigarettes Per Day: 10 Years Smoked: 26 Smoked in Last 30 Days: No e-Cigarette/Vaping Use: Never Used Second Hand Smoke Exposure: Yes Use of substances other than those prescribed or required for medical reasons: Yes Substance Use Type: Marijuana Advance Directives: No Advance Directives Information Provided: No Do you have a plan to hurt others: No Plan Patient : No service: No Current occupational status: unemployed Sexual orientation: Straight/Heterosexual Gender identity: Female Cognitive needs: No Hearing needs: No Vision needs: No Physical Exam ED Vital Signs: Vital Signs - 24 hr 11/21/24 16:52 11/21/24 18:06 11/21/24 18:50 Temperature 97.9 F 98.2 F 97.9 F Pulse Rate 73 81 84 Respiratory Rate 12 16 14 Blood Pressure 136/75 140/68 H 127/65 Pulse Oximetry 97 94 99 Oxygen Delivery Method Room Air Room Air Room Air 11/21/24 20:47 11/21/24 22:25 11/21/24 23:25 Temperature 98.3 F 97.1 F 98.0 F Pulse Rate 72 65 82 Respiratory Rate 15 14 16 Blood Pressure 124/69 110/68 105/70 Pulse Oximetry 96 95 98 Oxygen Delivery Method Room Air Room Air Room Air BMI result Body Mass Index 31.0 Appearance: Alert. Oriented X3. No acute distress. Eyes: PERRLA, No Nystagmus ENT: Pharynx normal. Oral Mucosa moist muffled voice Neck: Normal inspection. Neck supple. No bruising noticed no stridor CVS: Normal heart rate and rhythm. Pulses normal. Respiratory: No respiratory distress. Equal air entry bilateral, no wheezing/rales/rhonchi Abdomen: Soft and nontender. Bowel sounds are present, no mass palpable, no CVA tenderness Skin: Skin warm and dry. Normal skin color. Normal skin turgor. Extremities: No lower extremity edema. No calf tenderness Neuro: Oriented X 3. No motor deficit. No sensory deficit.No cerebellar signs , cranial nerves II-XII intact Medications Administered Discontinued Medications Generic Name Dose Route Start Last Admin Trade Name Freq PRN Reason Stop Dose Admin Dexamethasone Sodium Phosphate 10 mg 11/21/24 17:58 11/21/24 18:04 Dexamethasone Sod Phosphate 10 Mg/Ml Vial IVPUSH 11/21/24 17:59 10 mg ONCE ONE Administration Iohexol 60 ml 11/21/24 18:26 11/21/24 18:26 Iohexol 350 Mg/Ml 100 Ml Infus..Btl IV 11/21/24 18:27 60 ml ONCE ONE Administration Medical Decision Making Medical Decision Making [facility] Narrative: Patient with syncope episode and posttraumatic throat pain and difficulty in swallowing with muffled voice after she had a syncope episode and fell found herself with hand under the chin CT scan showed mass before the prevertebral area pushing on the vocal cord case discussed radiologist possible hematoma possible fluid collection will call [facility] for transfer and further evaluation, unable to transfer the patient to [facility] at ENT were not able to do prevertebral fluid drainage and Neurosurgery also unable to do it Case discussed with transfer center at [facility] extra with the patient for further evaluation patient is sleeping resting without any significant distress feels much better after Decadron able to take p.o. fluids Differential Diagnosis Differential Diagnoses: The differential diagnosis associated with the presentation includes Admission/Observation Consideration of admission/observation: Escalation of care including admission/observation considered Lab Data [facility] Lab Attestation statement: I reviewed the patient's lab results. 11/21/24 18:26 11/21/24 17:25 Labs: Lab Results 11/21/24 11/21/24 11/21/24 Range/Units 17: 17:26 17:33 WBC Cancelled RBC Cancelled Hgb Cancelled Hct Cancelled MCV Cancelled MCH Cancelled MCHC Cancelled RDW Cancelled Plt Count Cancelled MPV Cancelled Immature Gran % (Auto) Cancelled Neut % (Auto) Cancelled Lymph % (Auto) Cancelled Lincoln % (Auto) Cancelled Eos % (Auto) Cancelled Baso % (Auto) Cancelled Lymph # (Auto) Cancelled Lincoln # (Auto) Cancelled Eos # (Auto) Cancelled Baso # (Auto) Cancelled Abs Immat Gran (auto) Cancelled Absolute Neuts (auto) Cancelled Absolute Nucleated RBC Cancelled Nucleated RBC % (auto) Cancelled Hold Blue Top SEE NOTE VBG pH 7.50 H 7.54 H (7.32-7.43) VBG pCO2 44 44 mmHg VBG pO2 41 41 mmHg VBG HCO3 38 H 38 H (22-26) mmol/L VBG O2 Saturation 73.0 73.0 % VBG Base Excess 13.9 13.9 mmol/L Sodium 136 (135-145) mmol/L Potassium 3.4 (3.3-5.1) mmol/L Chloride 98 (96-108) mmol/L Carbon Dioxide 26 (22-29) mmol/L Anion Gap 15 (12-20) BUN 19 H (9-16) mg/dL Creatinine 0.64 (0.5-1.4) mg/dL Estim Creat Clear Calc 116.5 Estimated GFR > 60 Random Glucose 113 (60-115) mg/dL Calcium 8.6 D (8.4-10.2) mg/dL Magnesium 1.7 (1.6-2.6) mg/dL Total Bilirubin 0.5 (0.0-1.0) mg/dL Direct Bilirubin 0.1 (0.0-0.5) mg/dL AST 137 H (5-31) U/L ALT 101 H (0-31) U/L Alkaline Phosphatase 62 (39-117) U/L Total Protein 6.7 (6.5-8.0) g/dL Albumin 3.7 (3.5-5.0) g/dL Influenza Type A (PCR) NEGATIVE (Negative) Influenza Type B (PCR) NEGATIVE (Negative) RSV RNA Qual (PCR) NEGATIVE (Negative) SARS-CoV-2 RNA (RT-PCR) NEGATIVE (Negative) 11/21/24 Range/Units 18:26 WBC 6.4 RBC 5.00 Hgb 14.9 Hct 42.9 MCV 85.8 MCH 29.8 MCHC 34.7 RDW 12.8 Plt Count 209 MPV 10.5 Immature Gran % (Auto) 0.8 H Neut % (Auto) 82.6 H Lymph % (Auto) 13.8 L Lincoln % (Auto) 2.0 Eos % (Auto) 0.3 Baso % (Auto) 0.5 Lymph # (Auto) 0.9 L Lincoln # (Auto) 0.1 Eos # (Auto) 0.0 Baso # (Auto) 0.0 Abs Immat Gran (auto) 0.05 H Absolute Neuts (auto) 5.3 Absolute Nucleated RBC 0.000 Nucleated RBC % (auto) 0.0 Hold Blue Top VBG pH (7.32-7.43) VBG pCO2 mmHg VBG pO2 mmHg VBG HCO3 (22-26) mmol/L VBG O2 Saturation % VBG Base Excess mmol/L Sodium (135-145) mmol/L Potassium (3.3-5.1) mmol/L Chloride (96-108) mmol/L Carbon Dioxide (22-29) mmol/L Anion Gap (12-20) BUN (9-16) mg/dL Creatinine (0.5-1.4) mg/dL Estim Creat Clear Calc Estimated GFR Random Glucose (60-115) mg/dL Calcium (8.4-10.2) mg/dL Magnesium (1.6-2.6) mg/dL Total Bilirubin (0.0-1.0) mg/dL Direct Bilirubin (0.0-0.5) mg/dL AST (5-31) U/L ALT (0-31) U/L Alkaline Phosphatase (39-117) U/L Total Protein (6.5-8.0) g/dL Albumin (3.5-5.0) g/dL Influenza Type A (PCR) (Negative) Influenza Type B (PCR) (Negative) RSV RNA Qual (PCR) (Negative) SARS-CoV-2 RNA (RT-PCR) (Negative) Radiology Impression Discussion of test interpretation with radiology: I have reviewed the radiologist's reading. Radiologist Impression: [place] [id number] CT Scan Report Signed Patient: Dominique Almonte MR#: [id number] : 1975 Acct:[id number] Age/Sex: 49 / F ADM Date: 11/21/24 Loc: HO.ED Attending Dr: Ordering Physician: Aman Sidhu MD Date of Service: 11/21/24 Procedure(s): CT soft tissue neck w IV con Accession Number(s): [id number] cc: [facility]; Aman Sidhu MD~ Report Number: [id number]: Total DLP = 765.61 mGy-cm CLINICAL HISTORY: epiglotitis abscess CT soft tissue neck with contrast Comparison: None Findings: Soft tissue prominence along posterior wall of hypopharynx. This is at the level of the area of the glottic folds. No epiglottis or aryepiglottic fold edema noted. Hypopharyngeal airway is narrowed and anteriorly displaced. Findings raise concern for mass.Recommend direct visualization. This is at the C4 vertebral body level. Tonsils, adenoids and epiglottis are within normal limits. Bilateral parotid and submandibular glands unremarkable. No significant adenopathy in the neck by size criteria. Airway midline without deviation or displacement. No foreign bodies are demonstrated. Left maxillary and right ethmoid sinus mucosal thickening. Remaining sinuses and bilateral mastoids clear. No acute bony abnormalities demonstrated. Visualized bilateral upper lungs are clear. Aberrant right subclavian artery origin noted. Impression: Prevertebral soft tissue prominence at C4 level as above Finding impresses on hypopharynx airway and displaces airway Possible mass, recommend direct visualization This document has been electronically signed by: Santiago Davenport MD on 11/21/2024 19:14:47 Dictated By: Santiago Davenport MD Signed By: <Electronically signed by Santiago Davenport MD in OV> 11/21/241914 Critical Care Time Critical Care Time Critical Care Time: Yes Total Critical Care Time: 60 Attestation: The patient was critically ill with a high probability of imminent or life threatening deterioration. I spent greater than 65???minutes of discontinuous time evaluating the patient,delivering critical care at the bedside, discussing and evaluating pertinent data with consultants. Critical care time does not include time spent performing separately billable procedures or teaching. Total time spent performing critical care was ?60??minutes. Discharge Plan Discharge Clinical Impression: Throat pain Patient Disposition: [facility] Transfer Details: [facility] main ER Dr. Reis Prescriptions: No Action dextroamphetamine-amphetamine 15 mg tablet 1 tab PO BID clonazepam 1 mg tablet 1 mg PO BID PRN venlafaxine 75 mg capsule,extended release 24hr 75 mg PO QAM aripiprazole 10 mg tablet 10 mg PO DAILY esomeprazole magnesium [Nexium] 40 mg capsule,delayed release(DR/EC) 40 mg PO DAILY Qty: 30 5RF Linzess 145 mcg capsule 145 mcg PO DAILY Qty: 30 4RF cholecalciferol (vitamin D3) 125 mcg (5,000 unit) capsule 125 mcg PO DAILY Qty: 90 3RF Print Language: Uruguayan
[2024-11-21 18:00] LABS: VBG Base Excess 13.9 mmol/L; VBG HCO3 38 mmol/L (22-26); VBG pCO2 44 mmHg; VBG pH 7.54 (7.32-7.43); VBG pO2 41 mmHg
[2024-11-21] MEDS: dexAMETHasone sod phosphate 10 MG/ML VIAL IVPUSH (18:04)
--- NOTE | 2024-11-21 18:07 | PC.NURSE ---
medication administered per provider order. effectiveness pending. vss and up to date. 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 pt remains on RA w/o difficulty at this time. remains in upright position to promote patent airway. no sob/wob noted. respirations even/unlabored. pt to CT at this time. plan of care ongoing. call jacob placed within reach.
[2024-11-21 18:12] LABS: Influenza A PCR NEGATIVE (Negative); Influenza B PCR NEGATIVE (Negative); Resp Syncy Virus RNA Qual PCR NEGATIVE (Negative); SARS COV2 PCR INHOUSE NEGATIVE (Negative)
[2024-11-21] MEDS: iohexoL 350 MG/ML 100 ML INFUS..BTL 60 ML IV (18:26)
[2024-11-21 18:33] LABS: MANUAL DIFF FLAG NO
[2024-11-21 18:39] LABS: Basophils Percent Auto 0.5 % (0-2); Eosinophils Percent Auto 0.3 % (0-4); Hematocrit 42.9 % (37.0-47.0); Hemoglobin 14.9 g/dl (12.0-16.0); Imm Gran Abs Auto 0.05 X10*3/uL (0.00-0.03); Imm Gran Pct Auto 0.8 % (0.0-0.4); Lymphocytes Absolute Auto 0.9 X10*3/uL (1.2-4.9); Lymphocytes Percent Auto 13.8 % (20-40); Mean Corpuscular HGB Conc 34.7 g/dl (31.0-35.0); Mean Corpuscular Hemoglobin 29.8 pg (27.0-33.0); Mean Corpuscular Volume 85.8 fL (80.0-98.0); Mean Platelet Volume 10.5 fL (9.4-12.3); Monocytes Absolute Auto 0.1 X10*3/uL (0.1-1.2); Neutrophils Absolute Auto 5.3 x10*3/uL (2.0-8.3); Neutrophils Percent Auto 82.6 % (45-73); Platelet Count 209 X10*3/uL (160-400); Red Cell Distribution Width 12.8 % (11.0-16.0); White Blood Count 6.4 X10*3/uL (4.8-10.8)
[2024-11-22 00:52] VITALS: BP 116/68; PULSE 84; RESP 14; TEMP 36.7; O2SAT 97
[2024-11-22 01:04] VITALS: BP 116/68; PULSE 84; RESP 14; TEMP 36.7; O2SAT 97
== END 2024-11-22 01:00 | disposition short-term general hospital (02) ==
PROVIDERS: Emergency Provider Internal Medicine
DX: R07.0 Pain in throat (principal); R06.02 Shortness of breath; R11.10 Vomiting, unspecified; R55 Syncope and collapse; Z79.899 Other long term (current) drug therapy; Z03.818 Encounter for observation for suspected exposure to other biological agents ruled out
CPT/HCPCS: 0241U; 36415; 70450; 70491; 80053; 82248; 82803; 83735; 85025; 93005; 99285; J1100; Q9967

== ENCOUNTER → 2024-11-21 16:57 | Outpatient (BNV) | payer OTHER, SELFPAY | PROVIDERS: Emergency Provider Internal Medicine; Visit Provider Internal Medicine Cardiovascular Disease | DX: R06.02 Shortness of breath (principal) | CPT/HCPCS: 93010 ==

== ENCOUNTER → 2024-11-21 17:53 | Outpatient (BNV) | payer OTHER, SELFPAY | PROVIDERS: Emergency Provider Internal Medicine; Visit Provider Radiology Diagnostic Radiology | DX: R22.1 Localized swelling, mass and lump, neck (principal); R55 Syncope and collapse | CPT/HCPCS: 70450; 70491 ==

== ENCOUNTER 2024-11-28 14:23 | Outpatient (AMB) | payer OTHER, SELFPAY ==
--- NOTE | 2024-11-28 14:32 | A.OFFPC_ITS ---
Vital Signs 11/28/24 14:34 Height 5 ft 5 in Weight 187 lb 6 oz BMI 31.2 BP 130/60 Blood Pressure Location Lt brachial Position Sitting Pulse 82 Pulse Source Pulse Oximeter Temp 97.3 F Temp Source Temporal Artery Scan Pulse Oximetry (%) 96 Oxygen Delivery Method Room Air Intake Visit Reasons: 1 mo f/u blood work Intake Note: Patient is here for hospital discharge follow up. Patient was discharged from [facility] on 11/21/24, [facility] 11/21/24-11/23/24. Zone Supervisor Firearms Required: No Grails Web Application Developer: Present Accompanied by: Spouse Allergies Penicillins Allergy (Severe, Verified 11/28/24 14:34) Anaphylaxis acetaminophen [From Tylenol] Allergy (Intermediate, Verified 11/28/24 14:34) Hives aspirin [ASPIRIN] Allergy (Intermediate, Verified 11/28/24 14:34) UNKNOWN gabapentin Allergy (Intermediate, Verified 11/28/24 14:34) Hives varenicline [From CHANTIX] Allergy (Intermediate, Verified 11/28/24 14:34) HIVES ibuprofen Allergy (Verified 11/28/24 14:34) Anaphylaxis lurasidone [From Latuda] Allergy (Verified 11/28/24 14:34) Unknown Bees Allergy (Intermediate, Uncoded 11/28/24 14:34) Anaphylaxis cefuroxime Allergy (Mild, Uncoded 11/28/24 14:34) Itching Medication List - Last Reconciled 11/28/24 by Dali Nugent PA-C aripiprazole 10 mg PO DAILY cholecalciferol (vitamin D3) 125 mcg PO DAILY clonazepam 1 mg PO BID PRN dextroamphetamine-amphetamine 15 mg 1 tab PO BID esomeprazole magnesium (Nexium) 40 mg PO DAILY linaclotide (Linzess) 145 mcg PO DAILY venlafaxine ER 75 mg PO QAM Tobacco use date assessed: 11/28/24 Dental Screening Dental Screen Date: 09/21/24 HPI 1 mo f/u blood work HPI Details 49-year-old female with past medical his tory of ADHD and constipation last seen 08/2024 coming in for follow up.? In review of the notes, patient was seen in [facility] ED 11/21/2024 for difficulty swallowing she was seen in urgent care x-ray of the neck showed steeple sign and was given IV Solu-Medrol and epinephrine CT scan showing mass before the prevertebral area pushing on the vocal cords possibly hematoma discussed with [facility] and was transferred to . Patient was seen by [facility] where patient was admitted to the floor QTC was prolonged and Cardiology planned for TTE and continuous cardiac monitoring however patient decided to leave AMA and will continue her workup outpatient. Patient was seen by inpatient Psychiatry advised to hold Abilify and Topamax okay to give Klonopin. Presenting with a prolonged QT interval observed on EKG during previous hospital admission. Prolonged QT was significant enough to prompt admission for continuous monitoring. The patient reports past use of medications such as Abilify and Topamax, which have been halted due to their potential effects on QT prolongation. Anxiety is part of her medical history, along with reported difficulty sleeping, which worsens the anxious feelings. She reports continued dysphagia and globus feeling in the throat following her recent hospitalization. [facility] Medical History Tongue swelling Vomiting Trichomonas infection Cervical cancer Badillo's esophagus Encounter for screening colonoscopy (~2019) Hiatal hernia Depression Anxiety Surgical History H/O endoscopy (~2019) S/P tonsillectomy H/O: hysterectomy (~1999) Family History Other Adopted Social History Household Members: Significant Other Housing: Apartment Alcohol intake: never Patient Tobacco Use Status: Former Tobacco user Tobacco use type: Cigarette Cigarette Packs Per Day: 0.5 Cigarettes Per Day: 10 Years Smoked: 26 e-Cigarette/Vaping Use: Never Used Second Hand Smoke Exposure: Yes Substance Use Type: Marijuana service: No Current occupational status: unemployed Sexual orientation: Straight/Heterosexual Gender identity: Female Cognitive needs: No Hearing needs: No Vision needs: No Questionnaire Thrive Questionnaire Date Thrive assessed: 09/21/24 I am a: Patient What is your living situation today?: I have a steady place to live Within the past 12 months, did the food you bought not last and you didn't have the money to get more?: Sometimes True Within the past 12 months, did you worry whether your food would run out before you got money to buy more?: I choose not to answer this question Do you have trouble paying for medicines?: No Do you have trouble getting transportation to medical appointments?: No Do you have trouble paying your heating and electricity bill?: No Do you have trouble taking care of your child, family member or friend?: No Do you have trouble with day-to-day activities such as bathing, preparing meals, shopping, managing finances, etc.?: Yes Are you currently unemployed and looking for a job?: No Are you interested in more education?: No Please select the resources that you would like help with: None Currently or been in a relationship where the following occur: No concerns reported THRIVE Score: 1 JOVITA-7 AMB Questionnaire JOVITA-7 Date JOVITA - 7 assessed: 09/21/24 Source: Developed by Drs. Obi Eden, Danitza Funk, Jose Guadalupe Sweeney and colleagues, with an educational jennifer from [employer]. Review of Systems Const Denies body aches, Denies chills, Denies fever(s), Denies headache(s) and Denies poor appetite Eyes Reports no additional complaints ENT Reports dysphagia, Denies dizziness, Denies headache(s) and Reports odynophagia Card Denies chest pain, Denies syncope, Denies edema, Denies irregular heart rhythm, Denies lightheadedness and Denies dyspnea Resp Denies cough and Denies dyspnea GI Denies abdominal pain, Reports dysphagia, Denies nausea, Reports odynophagia and Denies vomiting Reports no additional complaints Musc Reports no additional complaints and Denies abnormal gait Skin/Breast Reports system reviewed and no additional complaints, except as documented Neuro Denies abnormal gait, Denies dizziness, Denies syncope and Denies headache(s) Psych Reports no additional complaints Physical exam (Primary Care) Vital Signs: Last Vital Signs Temp 97.3 F 11/28/24 14:34 Pulse 82 11/28/24 14:34 BP 130/60 11/28/24 14:34 Pulse Ox 96 11/28/24 14:34 Oxygen Delivery Method Room Air 11/28/24 14:34 BMI result Body Mass Index 31.2 Tobacco/Smoking Status: Tobacco use Status Tobacco use date assessed 11/28/24 11/28/24 14:36 Patient Tobacco Use Status Former Tobacco user 11/28/24 14:33 Tobacco use type Cigarette 11/28/24 14:33 e-Cigarette/Vaping Use Never Used 11/28/24 14:33 Thrive Assessment: Date of Thrive Assessment Date Thrive assessed 09/21/24 11/28/24 14:33 Currently or been in a relationship where the following occur: No concerns reported Const General: cooperative, healthy appearing, comfortable and no acute distress Orientation/consciousness: patient oriented x3 HENMT Head: Yes normocephalic Ears: hearing grossly normal bilaterally General nose exam: Normal external nose present Eyes General: appearance normal, both eyes and all related structures Conjunctivae: conjunctivae normal Neck Neck: Yes full ROM and Yes no lymphadenopathy Resp Effort & Inspection: normal respiratory effort Auscultation: clear to auscultation bilaterally, no crackles, no rales, no rhonchi and no wheezes Cardio Rate: regular rate Rhythm: regular rhythm Skin General skin exam: no rashes or lesions noted Neuro General: patient oriented x3 Gait exam (Neuro): Normal gait present Extrem General: Yes normal to inspection, Yes full ROM and No edema Psych Affect: normal affect Attitude: cooperative Insight: Good insight present (Psych) Judgement: Good judgement present (Psych) Coding Level of Care Code Est Pt Level 4 (65389) Diagnoses Prolonged Q-T interval on ECG R94.31 Elevated LFTs R79.89 Dysphagia R13.10 Throat mass J39.2 Assessment & Plan Assessment & Plan (1) Prolonged Q-T interval on ECG: Code(s): R94.31 - Abnormal electrocardiogram [ECG] [EKG] Category: Medical Plan: Per [facility] discharge ABRAHAM was ordered and referral was placed to cardiology for further evaluation. I did also discuss with the patient to reach out to her psychiatrist to adjust medications in light of new findings. (2) Elevated LFTs: Code(s): R79.89 - Other specified abnormal findings of blood chemistry Category: Medical Plan: plan to repeat blood work to monitor LFTs and abdominal US. (3) Dysphagia: Code(s): R13.10 - Dysphagia, unspecified Category: Medical Plan: Referral was placed to ENT for further evaluation of the throat swelling. Plan to also give steroids to see if swallowing improves with reduction of inflammation. (4) Throat mass: Code(s): J39.2 - Other diseases of pharynx Category: Medical Plan: Urgent referral was placed to ENT for further evaluation of throat mass. I reviewed with the patient red flag symptoms and when to present for re- evaluation. Plan The identified prolonged QT interval requires vigilant monitoring to avoid any complications. Discontinuation of Abilify and Topamax is advised to prevent further QT prolongation, and Klonipin will manage anxiety and assist with sleep difficulties. The patient should have periodic EKGs and consider an ambulatory cardiac monitor technician to ensure monitoring remains comprehensive. As part of the therapeutic approach, ongoing follow-up with cardiology and repeat liver function tests are planned to address potential hepatic concerns. The assessment will determine if any changes in her cardiovascular status necessitate more immediate measures. This note was constructed using voice recognition software. While every effort has been made to ensure accuracy and [employer], still areas may have been included sometimes these areas may affect the content or meeting of the given symptoms. Total time spent caring for the patient today was 20 minutes. This includes time spent before the visit reviewing the chart, time spent during the visit, and time spent after the visit and documentation. Patient was informed and verbally consented to the use of an ambient scribe for clinic note documentation during this visit. Orders: Orders Hepatitis B,C Profile 11/28/24 R79.89 - Other specified abnormal findings of blood chemistry CA echo transthoracic complete 11/28/24 R94.31 - Abnormal electrocardiogram [ECG] [EKG] US abdomen complete 11/28/24 R79.89 - Other specified abnormal findings of blood chemistry Referrals Cardiology Referral R94.31 - Abnormal electrocardiogram [ECG] [EKG] Ear/Nose/Throat Referral J39.2 - Other diseases of pharynx, R13.10 - Dysphagia, unspecified Medications: New prednisolone 15 mg (5 mL) PO BID 5 days 50 mL 0RF
[2024-11-28 14:34] VITALS: BP 130/60; PULSE 82; TEMP 36.3; O2SAT 96; BMI 31.2
--- OUTSIDE RECORDS SUMMARY | 2024-11-28 17:13 | XMS_ITS | Clinical Summary ---
Author Organization [facility] [email or web address] [facility] ity Address [address] [place] [address] Care Team Providers Care Campus Coordinator Name Role Phone Lilliana Mosqueda MD Primary [...] age to complete this topic Care Teams Campus Coordinator Relationship Specialty Start Date End Date Lilliana Mosqueda MD [address] [place] [phone] PCP - General Family Medicine 05/31/19
--- OUTSIDE RECORDS SUMMARY | 2024-11-28 17:13 | XMS_ITS ---
Author Organization [facility] Address [address] [place] [address] Care Team Providers Care Certified Appliance Service Technician Name Role Phone Jhonny Ros Primary Care Provider ZZZMigration, Provider Unavailable Unavailab le Allergies Allergen (clinical drug ingredient) Drug/Non Drug Allergy documented on EMR Reaction Allergy Type Onset Date Status ibuprofen Ibuprofen Unknown Drug Allergy Active prazosin Prazosin worsened nightmares Drug Allergy Active varenicline Varenicline Tartrate anaphylaxis Drug Allergy Active acetaminophen Tylenol anaphylaxis Drug Allergy A ctive lurasidone Latuda anaphylaxis Drug Allergy Acti ve REASON FOR VISIT [facility] Conversion Encounter Medications Medication SIG (Take, [...] Unknown Encounters Encounter Location Date Provider Diagnosis [place] [address] [place] [address] 02/20/2024 Provider TEJAMigration Plan Of Treatment No Information Progress Notes * Dominique PRADODOB:1975 (48 yo F)Acc No.[id number]:02/20/2024 Patient:Dominique RODRÍGUEZ Provider:? :1975???Age:48 Y???Sex:Female D ate:02/20/2024 Address:[address], [id number] Pcp:Ros Barry Subjective: * Chief Complaints: * ?[facility] En[facility]. * Medical History:? * [...] * Provider:? Date:?02/20/2024 Generated for Aleta krishna/Derek/Dorothy on:?11/28/2024 05:13 PM EDT
--- OUTSIDE RECORDS SUMMARY | 2024-11-28 17:13 | XMS_ITS ---
Author Organization [facility] Address [address] [place] [address] Care Team Providers Care Vault Installer Name Role Phone Ros Barry Primary Care Provider REASON FOR VISIT hey I had her change ins Encounters Encounter Location Date Provider Diagnosis [place] [address] [place] [phone] 01/20/2024 Ros Barry Plan Of Treatment No Information Progress Notes * Dominique PRADODOB:1975 (48 yo F)Acc No.[id number]:01/20/2024 Patient:?Dominique PRADO :1975???Age:48 Y???Sex:Female Address:[address], [place], [address] * true * Date:? Generated for Printi ng/Famarielleg/eTransmitting on:?11/28/2024 05:13 PM EDT
--- OUTSIDE RECORDS SUMMARY | 2024-11-28 17:14 | XMS_ITS | Patient Health Record ---
Author Organization [facility] Address [address] [place] [address] Care Team Providers Care Ecological Modeler Name Role Phone Ros Barry Primary Care Provider ZZZMigration, Provider Unavailable Unavailab le Allergies Allergen (clinical drug ingredient) Drug/Non Drug Allergy documented on EMR Reaction Allergy Type Onset Date Status prazosin Prazosin worsened nightmares Drug Allergy Active varenicline Varenicline Tartrate anaphylaxis Drug Allergy Active acetaminophen Tylenol anaphylaxis Drug Allergy A ctive lurasidone Latuda anaphylaxis Drug Allergy Acti ve ibuprofen Ibuprofen Unknown Drug Allergy Active Reason For Referral No Information Medications Medication SIG (Take, Route, Frequency, Duration) Notes Start Date End Date Status Vyvanse 30 MG 1 cap(s) orally bid DO NOT FILL BEFORE 08/24/2023 07/27/2023 Unknown Topamax 100 MG 1 tab(s) orally 2 ti mes a day 07/27/2023 Unknown Adderall 15 MG 1 tab(s) orally twic e a day 07/27/2023 Unknown Abilify 20 MG 1 tab(s) orally once a day Unknown Venlafaxine HCl ER 75 MG 1 cap(s) orally once a day Unknown clonazePAM 1 MG 1 tab(s) orally twic e a day as needed 09/23/2023 Unknown EpiPen 2-Romero 0.3 MG/0.3ML as directed intramuscularly once for 1 day prn 01/06/2022 Unknown Social History Tobacco Use: Social History Observation Description Date Details (start date - stop date) Current Smoker NA - NA Smoking Smart Form: Question Answer Notes Are you a: current smoker When did you start smoking? 1988 How often do you smoke cigarettes? every day How many cigarettes a day do you smoke? 11-20 How soon after you wake up d o you smoke your first cigarette? after 60 min Are you interested in quitting? Thinking about q uitting Section Notes: Nutrition: eats everything Nutrition: eats everything Nutrition: eats everything Nutrition: eats everything Nutrition: eats everything Nutrition: eats everything Nutrition: eats everything Nutrition: eats everything Nutrition: eats everything Nutrition: eats everything Nutrition: eats everything Nutrition: eats everything Nutrition: eats everything Nutrition: eats everything Nutrition: eats everything Nutrition: eats everything Nutrition: eats everything Nutrition: eats everything Nutrition: eats everything Nutrition: eats everything Nutrition: eats everything Nutrition: eats everything Nutrition: eats everything Nutrition: eats everything Nutrition: eats everything Nutrition: eats everything Problems Problem Type SNOMED Code ICD Code Onset Dates Problem Status W/U Status Risk Notes Problem Skin sensation disturbance (28813206) Paresthesia of skin (R20.2) Active confirmed Problem Mixed bipolar I disorder (59969916) Bipolar disorder, current episode mixed, unspecified (F31.60) Active confirmed Problem Bipolar I disorder, most recent episode mixed, in remission (31119072) Bipolar disorder, currently in remission, most recent episode unspecified (F31.70) Active confirmed Problem Depressed bipolar I disorder in remission (74418969) Bipolar disorder, in partial remission, most recent episode depressed (F31.75) Active confirmed Problem Posttraumatic stress disorder (29302135) Post-traumatic stress disorder, chronic (F43.12) Active confirmed Problem Contracture of joint of hand (89432799) Contracture, left hand (M24.542) Active confirmed Problem Skin sensation disturbance (04977221) Hypoesthesia of skin (R20.1) Active confirmed Problem Attention deficit hyperactivity disorder (196888158) ADHD, combined type (F90.2) Active confirmed Problem Panic disorder (757726459) Panic disorder [episodic paroxysmal anxiety] (F41.0) Active confirmed Encounters Encounter Location Date Provider Diagnosis [place] [address] [place] [address] 12/09/2023 Ros Barry Post-traumatic stress disorder, chronic F43.12 ; ADHD, combined type F90.2 and Bipolar disorder, current episode mixed, unspecified F31.60 [place] [address] [place] [address] 01/06/2024 Ros Barry Post-traumatic stress disorder, chronic F43.12 ; ADHD, combined type F90.2 ; Panic disorder [episodic paroxysmal anxiety] F41.0 and Bipolar disorder, currently in remission, most recent episode unspecified F31.70 [place] [address] [place] [address] 02/20/2024 Provider ZHOWIEMipatrice [place] [address] [place] [address] 01/06/2024 Ros Barry [place] [address] [place] [address] 01/20/2024 Ros Barry Assessments Encounter Date Diagnosis (ICD Code) Assessment Notes Treatment Notes Treatment Clinical Notes Section Notes 12/09/2023 Post-traumatic stress disorder, chronic (ICD-10 - F43.12) Overall time spent in patient care coordination, medical management, counseling and education of patient and family as well as interpreting test results and discussion with other experts involved in the patient's care. 30 minutes were spent involving this patient's care seen thru afp but rxs sent through [employer] [facility] where can send controlleds substances , parts identification technician reviewed 12/09/2023 ADHD, combined type (ICD-10 - F90.2) Chronic Condition stable and controlled. continue same plan with current medication and scheduled reassessment seen thru afp but rxs sent through [employer] [facility] where can send controlleds substances , parts identification technician reviewed 01/06/2024 Post-traumatic stress disorder, chronic (ICD-10 - F43.12) Chronic Condition stable and controlled. continue same plan with current medication and scheduled reassessment 01/06/2024 ADHD, combined type (ICD-10 - F90.2) Chronic Condition stable and controlled. continue same plan with current medication and scheduled reassessment 12/09/2023 Bipolar disorder, current episode mixed, unspecified (ICD-10 - F31.60) Chronic Condition stable and controlled. continue same plan with current medication and scheduled reassessment seen thru afp but rxs sent through [employer] [facility] where can send controlleds substances , parts identification technician reviewed 01/06/2024 Panic disorder [episodic paroxysmal anxiety] (ICD-10 - F41.0) Chronic Condition stable and controlled. continue same plan with current medication and scheduled reassessment 01/06/2024 Bipolar disorder, currently in remission, most recent episode unspecified (ICD-10 - F31.70) Chronic Condition stable and controlled. continue same plan with current medication and scheduled reassessment Plan Of Treatment Pending Test Test Name Order Date X ray : Shoulder, left 06/25/2021 X ray : Neck 06/25/2021 COMPREHENSIVE METABOLIC PANL 06/30/2021 LIPID PANEL 06/30/2021 TSH WITH REFLEX TO T4 06/30/2021 Vitamin D25 OH 06/30/2021 CBC AUTO DIFF 06/30/2021 URINE CULTURE 01/06/2022 URINALYSIS, COMPLETE 01/06/2022 MRI Brain W/O Contrast 07/11/2021 MRI Brain W/ and W/O Contrast (specify f or eval of brain mets) 06/25/2021 MRA Head W+W/O Contrast 06/25/2021 MRA Head W/O Contrast 07/11/2021 Insurance Providers Payer Name Payer Address Payer Phone Subscriber Number Group Number Insured Name Patient Relationship to Insured Coverage Start Date Coverage End Date [facility] [address] [address] [place] [address] [id number] Dominique PRADO Self - patient is the insured [facility] [employer] [address] [place] [address] [id number] Dominique PRADO Self - patient is the insured Medical (General) History Medical History History ICD Code chiari malformation kidney stones back and hip pain Wanted to see public weigher before cov but couldn't schedule Visit from Wednesday x-rays and blood wor k at [facility] Mild Stroke [address] will start pc p there 04/2022 now at [facility] [place] office- Surgical History Surgery Date(Month/Year) Hysterectomy (abnormal bleeding) 2002 Stentt for kidney stones 1994 Hospitalization History Reason Date(Month/Year) ER workup for mild stroke 2020
--- OUTSIDE RECORDS SUMMARY | 2024-11-28 17:14 | XMS_ITS ---
Author Name [facility] Organization Unknown Results Test Name/Text Value Interpretation Date Range Source pro BNP, N-terminal 94pg/mL Normal [id number] - 125 [facility] Troponin T SerPl-mCnc 14ng/L Normal [id number] - 15 [facility] Delta Normal [id number] - 3 [facility] Globulin Ser Calc-mCnc 3g/dL Normal [id number] 1.5 - 3.9 [facility] ALT SerPl-cCnc 95U/L Above high normal [id number] 10 - 50 [facility] AST SerPl-cCnc 87U/L Above high normal [id number] 10 - 50 [facility] GFR/BSA.pred SerPlBld DLR-EEM-ZhONth 90 Normal [id number] 59 - [facility] Albumin SerPl-mCnc 4.3g/dL Normal [id number] 3.5 - 5 [facility] Albumin/Glob SerPl 1.4Ratio Normal [id number] 1 - 3 [facility] Creat SerPl-mCnc 0.5mg/dL Normal [id number] 0.4 - 1.1 [facility] Bilirub SerPl-mCnc 0.4mg/dL Normal [id number] 0.2 - 1 [facility] Anion Gap Bld-sCnc 15 Normal [id number] 7 - 17 [facility] Sodium SerPl-sCnc 134mmol/L Below low normal [id number] 13 6 - 145 [facility] Potassium SerPl-sCnc 3.5mmol/L Normal [id number] 3.4 - 5.3 [facility] Chloride SerPl-sCnc 91mmol/L Below low normal [id number] 98 - 107 [facility] Glucose SerPl-mCnc 175mg/dL Above high normal [id number] 65 - 99 [facility] Prot SerPl-mCnc 7.3g/dL Normal [id number] 6.3 - 8.3 [facility] BUN/Creat SerPl 30Ratio Above high normal [id number] 10 - 25 [facility] Calcium SerPl-mCnc 10mg/dL Normal [id number] 8.7 - 10 .5 [facility] CO2 SerPl-sCnc 28mmol/L Normal [id number] 22 - 33 [facility] BUN SerPl-mCnc 15mg/dL Normal [id number] 8 - 21 [facility] ALP SerPl-cCnc 73U/L Normal [id number] 32 - 122 [facility] Magnesium SerPl-mCnc 3mg/dL Above high normal [id number] 0 1.6 - 2.7 [facility] Imm Granulocytes/leuk NFr Bld Auto 0.7% Normal [id number] [facility] Lymphocytes/leuk NFr Bld Auto 13.4% Normal [id number] [facility] PMV Bld Auto 11fL Normal [id number] 7.5 - 12.[address] Monocytes num Bld Auto 0.18Thou/uL Below low normal [id number] 0.2 - 1.5 [facility] Hct VFr Bld Auto 46.5% Normal [id number] 35 - 47 [facility] Neutrophils num Bld Auto 6.39Thou/uL Normal [id number] 2 - 7.5 [facility] Neutrophils/leuk NFr Bld Auto 83.5% Normal [id number] [facility] Basophils/leuk NFr Bld Auto 0.1% Normal [id number] [facility] Basophils num Bld Auto 0.01Thou/uL Normal [id number] 0 - 0.2 [facility] Monocytes/leuk NFr Bld Auto 2.3% Normal [id number] [facility] Eosinophil num Bld Auto 0Thou/uL Normal [id number] 0 - 0.7 [facility] MCH RBC Qn Auto 28.9pg Normal [id number] 26 - 34 [facility] Eosinophil/leuk NFr Bld Auto 0% Normal [id number] [facility] Imm Granulocytes num Bld Auto 0.05Thou/uL Normal [id number] 0 - 0.1 [facility] RDW RBC Auto-Rto 12.5% Normal [id number] 11.5 - 14. 5 [facility] Platelet num Bld Auto 309Thou/uL Normal [id number] 150 - 450 [facility] MCHC RBC Auto-mCnc 34g/dL Normal [id number] 30 - 36 [facility] MCV RBC Auto 85fL Normal [id number] 80 - 100 [facility] T WBC num Bld Auto 7.7Thou/uL Normal [id number] 4 - 11 [facility] RBC num Bld Auto 5.47Mil/uL Above high normal [id number] 4 - 5.4 [facility] Hgb Bld-mCnc 15.8g/dL Above high normal [id number] 11.7 - 15.7 [facility] Lymphocytes num Bld Auto 1.03Thou/uL Below low normal [id number] 1.5 - 4.5 [facility] POC Glucose 180mg/dL Above high normal [id number] 65 - 99 [facility] Encounters Encounter Type Encounter Reason Primary Diagnosis Location Date Inpatient Other specified respiratory disorders Other specified respiratory disorders [facility] 11/22/2024 Care Team Organization Name Specialty Phone Email Start Date End Da yoandy [facility] 11/28/2024 [facility] 11/22/2024 [facility] 11/22/2024
--- OUTSIDE RECORDS SUMMARY | 2024-11-28 17:14 | XMS_ITS | Clinical Summary ---
Author Organization [facility] Address [address] [place] [id number] Care Team Providers Care Supervisor Kennel Name Role Phone David Graves MD Primary Care Provider [phone] Allergies Active Allergy Reactions Criticality Noted Date Comments Gabapentin Other (See Comments) Low 11/22/2024 Penicillins Other (See Comments) Low 11/22/2024 Medications Medication Sig Dispensed Refills Start Date End Date Status amphetamine-dextroam phetamine (ADDERALL) 15 MG tablet Take 1 tablet (15 mg total) by mouth 2 times a day. Active Abilify 20 MG tablet Take 1 tablet (20 mg total) by mouth daily. Active clonazePAM (KlonoPIN) 1 MG tablet Take 1 tablet (1 mg total) by mouth 2 times daily (every 12 hours) as needed. Active Linzess 145 MCG Cap capsule Take 1 capsule (145 mcg total) by mouth every morning before breakfast. 10/02/2024 Active Vyvanse 30 MG capsule Take 1 capsule (30 mg total) by mouth 2 times a day. Active topiramate (TOPAMAX) 100 MG tablet Take 2 tablets (200 mg total) by mouth nightly. Active venlafaxine (EFFEXOR-XR) 75 MG 24 hr capsule Take 1 capsule (75 mg total) by mouth daily. Active famotidine (PEPCID) 20 MG tabletIndications:Na rrowing of airway Take 1 tablet (20 mg total) by mouth 2 (two) times a day. 60 tablet 11/22/2024 12/22/2024 Active Active Problems Problem Noted Date Diagnosed Date Syncope and collapse 11/22/2024 Encounters Date Type Department Care Team Description 11/22/2024 5:10 AM EDT Ancillary Procedure [facility] [address] [place] [address] Provider, File Room 11/22/2024 5:05 AM EDT Ancillary Procedure [facility] [address] [place] [address] Provider, File Room 11/22/2024 1:52 AM EDT - 11/22/2024 2:31 PM EDT Emergency [facility] Emergency Department [address] [place] [address] Virginie Reis MD Sherif, Mohamed, MD Singh, Gagan, MD Narrowing of airway (Primary Dx); Neck pain; Syncope and collapse; Airway obstruction; Prolonged QT interval; Left against medical advice Discharge Disposition: Left Against Medical Advice/ AMA 11/22/2024 Travel 11/21/2024 Orders Only [facility] [address] [place] [address] Provider, File Room 11/21/2024 Orders Only [facility] [address] [place] [id number] Provider, File Room from Last 3 Months Social History Tobacco Use Types Packs/Day Years Used Date Smoking Tobacco: Never Assessed Sex and Gender Information Value Date Recorded Sex Assigned at Female 11/22/2024 2:02 AM EDT Gender Identity Female 11/22/2024 2:02 AM EDT Sexual Orientation Heterosexual (straight) 11/22 2:02 AM EDT Last Filed Vital Signs Vital Sign Reading Time Taken Comments Blood Pressure 108/50 11/22/2024 12:48 PM EDT Pulse 79 11/22/2024 12:48 PM EDT Temperature 36.4 ??C (97.5 ??F) 11/22/2024 7:57 AM ED T Respiratory Rate 18 11/22/2024 12:48 PM EDT Oxygen Saturation 96% 11/22/2024 12:48 PM EDT Inhaled Oxygen Concentration - - Weight - - Height - - Body Mass Index - - Plan of Treatment Health Maintenance Due Date Last Done Comments Hepatitis C Virus Screening 1977 HIV Screening 1990 DTaP/Tdap/Td Vaccines (1 - Tdap) 1996 Hepatitis B Vaccines (1 of 3 - 19+ 3-dose series) 06/30 Pneumococcal Vaccine: Pediat wilfrid (0-5 Years) and At-Risk Patients (6 to 49 Years) (1 of 2 - PCV) 1996 Pap Smear (Ages 21-65) 1998 Mammogram 2017 Colonoscopy 2022 Influenza Vaccine 03/30/2024 COVID-19 Vaccine ( - season) 2024 Procedures Procedure Name Priority Date/Time Associated Diagnosis Comments ECG 12-LEAD STAT 11/22/2024 2:[address] HEAD ARCHIVE FOR REFERENCE ONLY Routine 11/22/2024 5:[address] HEAD ARCHIVE FOR REFERENCE ONLY Routine 11/22/2024 5:03 AM EDT CTA HEAD AND NECK W/O AND WITH CONTRAST STAT 11/22/2024 3:[address] RECONSTRUCTED DATA WO/CONTRAST- CERVICAL SPINE (RAD USE ONLY) STAT 11/22/2024 3:52 AM EDT PROBNP, N-TERMINAL STAT 11/22/2024 2: 47 AM EDT HIGH SENSITIVITY TROPONIN T STAT 11/22/2024 2:47 AM EDT MAGNESIUM STAT 11/22/2024 2:47 AM EDT COMPREHENSIVE METABOLIC PANEL STAT 11/22/2024 2:47 AM EDT COMPLETE BLOOD COUNT, WITH DIFFERENTIAL STAT 11/22/2024 2:47 AM EDT POCT GLUCOSE, FINGERSTICK (CHARGE) Routine 11/22/2024 2:08 AM EDT ECG 12-LEAD Routine 11/22/2024 2:02 AM EDT from Last 3 Months Results * ECG 12 lead (11/22/2024 2:08 PM EDT) Only the most recent of2 resultswithin the time period is included. Ventricular rate 81 BPM EKG [facility] Atrial rate 81 BPM EKG [facility] P-R interval 156 ms EKG [facility] QRS duration 88 ms EKG [facility] Q-T interval 438 ms EKG [facility] QTC calculation (Bazett) 509 ms EKG [facility] P axis 73 degrees EKG [facility] R axis 38 degrees EKG [facility] T axis 60 degrees EKG [facility] 11/22/2024 2:08 PM EDT Narrative [facility] - 11/22/2024 7:12 PM EDT Normal sinus rhythm with sinus arrhythmia Prolonged QT Abnormal ECG When compared with ECG of 22-Nov-2024 02:02, (unconfirmed) No significant change was found Confirmed by DO Keller Steven ([id number]) on 11/22/2024 7:12:51 PM Procedure Note Venkatesh Keller DO - 11/22/2024 Normal sinus rhythm with sinus arrhythmia Prolonged QT Abnormal ECG When compared with ECG of 22-Nov-2024 02:02, (unconfirmed) No significant change was found Confirmed by DO Keller Steven ([id number]) on 11/22/2024 7:12:51 PM Virginie Reis MD ECG ORDERABLES Performing Organization Address City/[facility]/ZIP Co de Phone Number [facility] * CT Head Archive for Reference Only (11/22/2024 5:04 AM EDT) Only the most recent of2 resultswithin the time period is included. Narrative [facility] - 11/22/2024 5:04 AM EDT This study has been auto finalized and does not contain a result. File Room Provider IMG DIGITIZE FILMS [facility] [phone] * CT Reconstructed Data Without IV Contrast - Cervical Spine (11/22/2024 3:52 AM EDT) Anatomical Region Laterality Modality C-spine Computed Tomogra phy 11/22/2024 3:36 AM EDT Impressions 11/22/2024 6:[address] head: - No intracranial hemorrhage or large acute infarction. CTA neck: - No significant stenosis in the major arteries of the neck. CTA head: - No large vessel occlusion or significant stenosis within the intracranial circulation. Additional findings: -No acute cervical fracture or subluxation. -Again noted is soft tissue prominence of the posterior subglottic larynx. There is no fluid collection. Direct visualization is recommended. Attending addendum/clarification: The findings noted above may represent fortuitous visualization of the posterior cricoarytenoid muscles in close proximity to the superior esophageal sphincter. No definitive prevertebral fluid collections or inflammatory changes noted. Additionally, a prominent left parasagittal intraforaminal disc-osteophyte complex is present at C5-C6 is associated with marked left foraminal stenosis with possible left C6 nerve root impingement. Interpreted by: ??Venkatesh Mendoza DO Robotype Operator I personally reviewed the images and the resident's preliminary report and AGREE with the report as it is now presented ([email or web address]). Narrative 11/22/2024 6:03 AM EDT EXAMINATION: CT HEAD NECK ANGIOGRAPHY WITHOUT THEN WITH IV CONTRAST, CT CERVICAL SPINE WITHOUT IV CONTRAST CLINICAL INFORMATION: Headache, neck pain after fall, c4 fluid collection, L arm weakness; Creatinine 0.64 at OSH, hx of hysterectomy COMPARISON: CT head, CT neck with contrast 11/21/2024 TECHNIQUE: Initial noncontrast CT of the head was performed. Test bolus series followed by intravenous administration 40 mL of Omnipaque 350. Helical imaging was performed in the axial plane from the mediastinum to the skull vertex. The degree of stenosis is based off NASCET criteria. The data was processed at the electromechanical technologist workstation for generation of MIP images. Three-dimensional volume rendered reformatted images were also generated at an offline 3-D workstation. 3D images were processed on an independent workstation under concurrent supervision. This CT examination was performed using dose optimization techniques as appropriate, variously including the following: * ??Automated exposure control * ??Adjustment of mA and/or kV according to patient size (this includes techniques or standardized protocols for targeted exams where dose is matched to indication/reason for exam; i.e. extremities or head) Use of iterative reconstruction technique DLP: 2493 mGy-cm FINDINGS: CT Head: There is no evidence of acute intracranial hemorrhage or territorial infarction. No abnormal mass effect or midline shift is seen. Vasquez to white matter differentiation is well preserved. No extra-axial fluid collections are identified. ??No hydrocephalus. No significant volume loss. There is no abnormal attenuation within the brain parenchyma. The cerebellar tonsils are well positioned. ??No abnormal enhancement within the brain parenchyma. No acute osseous or soft tissue abnormality. Visualized portions of the orbits are unremarkable. Mucosal thickening of the left maxillary sinus. 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 The right vertebral artery arises expectedly from the right subclavian artery. There is no significant stenosis of the great vessel origins. The bilateral common carotid arteries appear normal. The bilateral internal carotid arteries appear normal without significant stenosis. The vertebral artery origins and cervical segments appear normal without significant stenosis. CTA Head: No intracranial aneurysm is seen. Moderate focal stenosis of the periophthalmic left ICA. Aplastic A1 segment of the left DEQUAN. Normal A2 and distal segments of the left DEQUAN. The right anterior cerebral artery, anterior communicating artery, and middle cerebral arteries appear normal. ?? The intradural vertebral arteries and basilar artery appear normal. The right posterior communicating artery is identified and appears normal. ?? . The posterior cerebral arteries appear normal. Non-vascular findings: Focal soft tissue prominence of the subglottic larynx is again noted, better evaluated on recent prior due to contrast bolus timing. No acute cervical fracture or subluxation. Straightening of the normal cervical lordosis. Alignment at the atlantooccipital and atlantoaxial articulations is maintained. Vertebral body heights are maintained. Mild loss of disc space height at C5-C6. No evidence of discitis osteomyelitis. No appreciable epidural collection. The visualized lung apices are clear. The thyroid gland is unremarkable. Procedure Note Melquiades Cortez MD - 11/22/2024 EXAMINATION: CT HEAD NECK ANGIOGRAPHY WITHOUT THEN WITH IV CONTRAST, CT CERVICAL SPINE WITHOUT IV CONTRAST CLINICAL INFORMATION: Headache, neck pain after fall, c4 fluid collection, L arm weakness; Creatinine 0.64 at OSH, hx of hysterectomy COMPARISON: CT head, CT neck with contrast 11/21/2024 TECHNIQUE: Initial noncontrast CT of the head was performed. Test bolus series followed by intravenous administration 40 mL of Omnipaque 350. Helical imaging was performed in the axial plane from the mediastinum to the skull vertex. The degree of stenosis is based off NASCET criteria. The data was processed at the electromechanical technologist workstation for generation of MIP images. Three-dimensional volume rendered reformatted images were also generated at an offline 3-D workstation. 3D images were processed on an independent workstation under concurrent supervision. This CT examination was performed using dose optimization techniques as appropriate, variously including the following: * Automated exposure control * Adjustment of mA and/or kV according to patient size (this includes techniques or standardized protocols for targeted exams where dose is matched to indication/reason for exam; i.e. extremities or head) Use of iterative reconstruction technique DLP: 2493 mGy-cm FINDINGS: CT Head: There is no evidence of acute intracranial hemorrhage or territorial infarction. No abnormal mass effect or midline shift is seen. Vasquez to white matter differentiation is well preserved. No extra-axial fluid collections are identified. No hydrocephalus. No significant volume loss. There is no abnormal attenuation within the brain parenchyma. The cerebellar tonsils are well positioned. No abnormal enhancement within the brain parenchyma. No acute osseous or soft tissue abnormality. Visualized portions of the orbits are unremarkable. Mucosal thickening of the left maxillary sinus. 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 The right vertebral artery arises expectedly from the right subclavian artery. There is no significant stenosis of the great vessel origins. The bilateral common carotid arteries appear normal. The bilateral internal carotid arteries appear normal without significant stenosis. The vertebral artery origins and cervical segments appear normal without significant stenosis. CTA Head: No intracranial aneurysm is seen. Moderate focal stenosis of the periophthalmic left ICA. Aplastic A1 segment of the left DEQUAN. Normal A2 and distal segments of the left DEQUAN. The right anterior cerebral artery, anterior communicating artery, and middle cerebral arteries appear normal. The intradural vertebral arteries and basilar artery appear normal. The right posterior communicating artery is identified and appears normal. . The posterior cerebral arteries appear normal. Non-vascular findings: Focal soft tissue prominence of the subglottic larynx is again noted, better evaluated on recent prior due to contrast bolus timing. No acute cervical fracture or subluxation. Straightening of the normal cervical lordosis. Alignment at the atlantooccipital and atlantoaxial articulations is maintained. Vertebral body heights are maintained. Mild loss of disc space height at C5-C6. No evidence of discitis osteomyelitis. No appreciable epidural collection. The visualized lung apices are clear. The thyroid gland is unremarkable. IMPRESSION: CT head: - No intracranial hemorrhage or large acute infarction. CTA neck: - No significant stenosis in the major arteries of the neck. CTA head: - No large vessel occlusion or significant stenosis within the intracranial circulation. Additional findings: -No acute cervical fracture or subluxation. -Again noted is soft tissue prominence of the posterior subglottic larynx. There is no fluid collection. Direct visualization is recommended. Attending addendum/clarification: The findings noted above may represent fortuitous visualization of the posterior cricoarytenoid muscles in close proximity to the superior esophageal sphincter. No definitive prevertebral fluid collections or inflammatory changes noted. Additionally, a prominent left parasagittal intraforaminal disc-osteophyte complex is present at C5-C6 is associated with marked left foraminal stenosis with possible left C6 nerve root impingement. Interpreted by: Venkatesh Mendoza DO Robotype Operator I personally reviewed the images and the resident's preliminary report and AGREE with the report as it is now presented ([email or web address]). Virginie Reis MD [facility] CT ORDERABLES * CTA Head and Neck W/O and With IV Contrast (11/22/2024 3:52 AM EDT) Anatomical Region Laterality Modality CTA Head and Neck Computed Tomog yoseph 11/22/2024 3:36 AM EDT Impressions 11/22/2024 6:[address] head: - No intracranial hemorrhage or large acute infarction. CTA neck: - No significant stenosis in the major arteries of the neck. CTA head: - No large vessel occlusion or significant stenosis within the intracranial circulation. Additional findings: -No acute cervical fracture or subluxation. -Again noted is soft tissue prominence of the posterior subglottic larynx. There is no fluid collection. Direct visualization is recommended. Attending addendum/clarification: The findings noted above may represent fortuitous visualization of the posterior cricoarytenoid muscles in close proximity to the superior esophageal sphincter. No definitive prevertebral fluid collections or inflammatory changes noted. Additionally, a prominent left parasagittal intraforaminal disc-osteophyte complex is present at C5-C6 is associated with marked left foraminal stenosis with possible left C6 nerve root impingement. Interpreted by: ??Venkatesh Mendoza DO Robotype Operator I personally reviewed the images and the resident's preliminary report and AGREE with the report as it is now presented ([email or web address]). Narrative 11/22/2024 6:03 AM EDT EXAMINATION: CT HEAD NECK ANGIOGRAPHY WITHOUT THEN WITH IV CONTRAST, CT CERVICAL SPINE WITHOUT IV CONTRAST CLINICAL INFORMATION: Headache, neck pain after fall, c4 fluid collection, L arm weakness; Creatinine 0.64 at OSH, hx of hysterectomy COMPARISON: CT head, CT neck with contrast 11/21/2024 TECHNIQUE: Initial noncontrast CT of the head was performed. Test bolus series followed by intravenous administration 40 mL of Omnipaque 350. Helical imaging was performed in the axial plane from the mediastinum to the skull vertex. The degree of stenosis is based off NASCET criteria. The data was processed at the electromechanical technologist workstation for generation of MIP images. Three-dimensional volume rendered reformatted images were also generated at an offline 3-D workstation. 3D images were processed on an independent workstation under concurrent supervision. This CT examination was performed using dose optimization techniques as appropriate, variously including the following: * ??Automated exposure control * ??Adjustment of mA and/or kV according to patient size (this includes techniques or standardized protocols for targeted exams where dose is matched to indication/reason for exam; i.e. extremities or head) Use of iterative reconstruction technique DLP: 2493 mGy-cm FINDINGS: CT Head: There is no evidence of acute intracranial hemorrhage or territorial infarction. No abnormal mass effect or midline shift is seen. Vasquez to white matter differentiation is well preserved. No extra-axial fluid collections are identified. ??No hydrocephalus. No significant volume loss. There is no abnormal attenuation within the brain parenchyma. The cerebellar tonsils are well positioned. ??No abnormal enhancement within the brain parenchyma. No acute osseous or soft tissue abnormality. Visualized portions of the orbits are unremarkable. Mucosal thickening of the left maxillary sinus. 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 The right vertebral artery arises expectedly from the right subclavian artery. There is no significant stenosis of the great vessel origins. The bilateral common carotid arteries appear normal. The bilateral internal carotid arteries appear normal without significant stenosis. The vertebral artery origins and cervical segments appear normal without significant stenosis. CTA Head: No intracranial aneurysm is seen. Moderate focal stenosis of the periophthalmic left ICA. Aplastic A1 segment of the left DEQUAN. Normal A2 and distal segments of the left DEQUAN. The right anterior cerebral artery, anterior communicating artery, and middle cerebral arteries appear normal. ?? The intradural vertebral arteries and basilar artery appear normal. The right posterior communicating artery is identified and appears normal. ?? . The posterior cerebral arteries appear normal. Non-vascular findings: Focal soft tissue prominence of the subglottic larynx is again noted, better evaluated on recent prior due to contrast bolus timing. No acute cervical fracture or subluxation. Straightening of the normal cervical lordosis. Alignment at the atlantooccipital and atlantoaxial articulations is maintained. Vertebral body heights are maintained. Mild loss of disc space height at C5-C6. No evidence of discitis osteomyelitis. No appreciable epidural collection. The visualized lung apices are clear. The thyroid gland is unremarkable. Procedure Note Melquiades Cortez MD - 11/22/2024 EXAMINATION: CT HEAD NECK ANGIOGRAPHY WITHOUT THEN WITH IV CONTRAST, CT CERVICAL SPINE WITHOUT IV CONTRAST CLINICAL INFORMATION: Headache, neck pain after fall, c4 fluid collection, L arm weakness; Creatinine 0.64 at OSH, hx of hysterectomy COMPARISON: CT head, CT neck with contrast 11/21/2024 TECHNIQUE: Initial noncontrast CT of the head was performed. Test bolus series followed by intravenous administration 40 mL of Omnipaque 350. Helical imaging was performed in the axial plane from the mediastinum to the skull vertex. The degree of stenosis is based off NASCET criteria. The data was processed at the electromechanical technologist workstation for generation of MIP images. Three-dimensional volume rendered reformatted images were also generated at an offline 3-D workstation. 3D images were processed on an independent workstation under concurrent supervision. This CT examination was performed using dose optimization techniques as appropriate, variously including the following: * Automated exposure control * Adjustment of mA and/or kV according to patient size (this includes techniques or standardized protocols for targeted exams where dose is matched to indication/reason for exam; i.e. extremities or head) Use of iterative reconstruction technique DLP: 2493 mGy-cm FINDINGS: CT Head: There is no evidence of acute intracranial hemorrhage or territorial infarction. No abnormal mass effect or midline shift is seen. Vasquez to white matter differentiation is well preserved. No extra-axial fluid collections are identified. No hydrocephalus. No significant volume loss. There is no abnormal attenuation within the brain parenchyma. The cerebellar tonsils are well positioned. No abnormal enhancement within the brain parenchyma. No acute osseous or soft tissue abnormality. Visualized portions of the orbits are unremarkable. Mucosal thickening of the left maxillary sinus. 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 The right vertebral artery arises expectedly from the right subclavian artery. There is no significant stenosis of the great vessel origins. The bilateral common carotid arteries appear normal. The bilateral internal carotid arteries appear normal without significant stenosis. The vertebral artery origins and cervical segments appear normal without significant stenosis. CTA Head: No intracranial aneurysm is seen. Moderate focal stenosis of the periophthalmic left ICA. Aplastic A1 segment of the left DEQUAN. Normal A2 and distal segments of the left DEQUAN. The right anterior cerebral artery, anterior communicating artery, and middle cerebral arteries appear normal. The intradural vertebral arteries and basilar artery appear normal. The right posterior communicating artery is identified and appears normal. . The posterior cerebral arteries appear normal. Non-vascular findings: Focal soft tissue prominence of the subglottic larynx is again noted, better evaluated on recent prior due to contrast bolus timing. No acute cervical fracture or subluxation. Straightening of the normal cervical lordosis. Alignment at the atlantooccipital and atlantoaxial articulations is maintained. Vertebral body heights are maintained. Mild loss of disc space height at C5-C6. No evidence of discitis osteomyelitis. No appreciable epidural collection. The visualized lung apices are clear. The thyroid gland is unremarkable. IMPRESSION: CT head: - No intracranial hemorrhage or large acute infarction. CTA neck: - No significant stenosis in the major arteries of the neck. CTA head: - No large vessel occlusion or significant stenosis within the intracranial circulation. Additional findings: -No acute cervical fracture or subluxation. -Again noted is soft tissue prominence of the posterior subglottic larynx. There is no fluid collection. Direct visualization is recommended. Attending addendum/clarification: The findings noted above may represent fortuitous visualization of the posterior cricoarytenoid muscles in close proximity to the superior esophageal sphincter. No definitive prevertebral fluid collections or inflammatory changes noted. Additionally, a prominent left parasagittal intraforaminal disc-osteophyte complex is present at C5-C6 is associated with marked left foraminal stenosis with possible left C6 nerve root impingement. Interpreted by: Venkatesh Mendoza DO Robotype Operator I personally reviewed the images and the resident's preliminary report and AGREE with the report as it is now presented ([email or web address]). Virginie Reis MD IMG CT ORDERABLES * High Sensitivity Troponin T (11/22/2024 2:47 AM EDT) [facility] High Sensitivity Troponin T 14 <15 ng/L 11/22/2024 11:41 AM EDT [facility] Delta (Change) NO PREVIOUS RESULT <3 11/22/2024 11:41 AM EDT [facility] 11/22/2024 2:47 AM EDT 11/22/2024 3:26 AM EDT Virginie Reis MD LAB [place] [address], [place] [address] * proBNP, N-terminal (11/22/2024 2:47 AM EDT) [facility] proBNP, N-terminal 94 <125 pg/mL 11/22/2024 11:41 AM EDT [facility] 11/22/2024 2:47 AM EDT 11/22/2024 3:26 AM EDT Virginie Reis MD LAB BLOOD ORDERABLES Performing Organization Address City/[facility]/ZIP [place] [address], [place] [address] * (ABNORMAL) Complete Blood Count, with Differential (11/22/2024 2:47 AM EDT) [facility] White Blood Cell Count 7.7 4.0 - 11.0 Thou/uL 11/22/2024 3:40 AM [facility] Platelet Count 309 150 - 450 Thou/uL 11/22/2024 3:40 AM [facility] Hemoglobin 15.8(H) 11.7 - 15.7 g/dL 11/22/2024 3:40 AM [facility] Hematocrit 46.5 35.0 - 47.0 % 11/22/2024 3:40 AM [facility] Red Blood Cell Count 5.47(H) 4.00 - 5.40 Mil/uL 11/22/2024 3:40 AM [facility] MCV 85 80 - 100 fL 11/22/2024 3:40 AM [facility] MCH 28.9 26.0 - 34.0 pg 11/22/2024 3:40 AM [facility] MCHC 34.0 30.0 - 36.0 g/dL 11/22/2024 3:40 AM [facility] RDW 12.5 11.5 - 14.5 % 11/22/2024 3:40 AM [facility] MPV 11.0 7.5 - 12.5 fL 11/22/2024 3:40 AM [facility] Neutrophils Auto 83.5 % 11/23/19 3:40 AM [facility] Immature Granulocytes 0.7 % 11/22/2024 3:40 AM [facility] Lymphocytes Auto 13.4 % 11/23/19 3:40 AM [facility] Monocytes Auto 2.3 % 11/22/2024 3:40 AM [facility] Eosinophils Auto 0.0 % 11/23/19 3:40 AM [facility] Basophils Auto 0.1 % 11/22/2024 3:40 AM [facility] Abs Neutrophils Auto 6.39 2.00 - 7.50 Thou/uL 11/22/2024 3:40 AM [facility] Abs Immature Granulocytes 0.05 0.00 - 0.10 Thou/uL 11/22/2024 3:40 AM [facility] Abs Lymphocytes Auto 1.03(L) 1.50 - 4.50 Thou/uL 11/22/2024 3:40 AM EDT [facility] Abs Monocytes Auto 0.18(L) 0.20 - 1.50 Thou/uL 11/22/2024 3:40 AM EDT [facility] Abs Eosinophils Auto 0.00 0.00 - 0.70 Thou/uL 11/22/2024 3:40 AM EDT [facility] Abs Basophils Auto 0.01 0.00 - 0.20 Thou/uL 11/22/2024 3:40 AM EDT [facility] Blood Blood specimen / Unknown 11/22/2024 2:47 AM EDT 11/22/2024 3:26 AM EDT Virginie Reis MD LAB BLOOD ORDERABLES Performing Organization Address City/[facility] [place] [address], [place] [address] * (ABNORMAL) Magnesium (11/22/2024 2:47 AM EDT) Magnesium 3.0(H) 1.6 - 2.7 mg/dL 11/22/2024 4:00 AM EDT [facility] Blood Blood specimen / Unknown 11/22/2024 2:47 AM EDT 11/22/2024 3:26 AM EDT Virginie Reis MD LAB BLOOD ORDERABLES Performing Organization Address City/[facility]/ZIP [place] [address], [place] [address] * (ABNORMAL) Comprehensive Metabolic Panel (11/22/2024 2:47 AM EDT) Glucose 175(H) 65 - 99 mg/dL 11/22/2024 4:00 AM EDT [facility] Comment:Fasting: <100 mg/dL, Non-Fasting: <200 mg/dL (ADA 2005) Blood Urea Nitrogen (BUN) 15 8 - 21 mg/dL 11/22/2024 4:00 AM EDT [facility] Creatinine 0.5 0.4 - 1.1 mg/dL 11/22/2024 4:00 AM [facility] eGFR >90 >59 11/22/2024 4:00 AM [facility] Comment:CKD-EPI (2020) in mL /min/1.73 sq meters. Sodium 134(L) 136 - 145 mmol/L 11/22/2024 4:00 AM [facility] Potassium 3.5 3.4 - 5.3 mmol/L 11/22/2024 4:00 AM [facility] Chloride 91(L) 98 - 107 mmol/L 11/22/2024 4:00 AM [facility] CO2 28 22 - 33 mmol/L 11/22/2024 4:00 AM [facility] Calcium 10.0 8.7 - 10.5 mg/dL 11/22/2024 4:00 AM [facility] Alkaline Phosphatase 73 32 - 122 U/L 11/22/2024 4:00 AM [facility] Aspartate Aminotrans (AST) 87(H) 10 - 50 U/L 11/22/2024 4:00 AM [facility] Alanine Aminotrans (ALT) 95(H) 10 - 50 U/L 11/22/2024 4:00 AM [facility] Bilirubin, Total 0.4 0.2 - 1.0 mg/dL 11/22/2024 4:00 AM [facility] Protein, Total 7.3 6.3 - 8.3 g/dL 11/22/2024 4:00 AM [facility] Albumin 4.3 3.5 - 5.0 g/dL 11/22/2024 4:00 AM [facility] BUN/Creatinine Ratio 30(H) 10.0 - 25.0 Ratio 11/22/2024 4:00 AM [facility] Globulin 3.0 1.5 - 3.9 g/dL 11/22/2024 4:00 AM [facility] Albumin/Globulin Ratio 1.4 1.0 - 3.0 Ratio 11/22/2024 4:00 AM [facility] Anion Gap 15 7 - 17 11/22/2024 4:00 AM [facility] Blood Blood specimen / Unknown 11/22/2024 2:47 AM EDT 11/22/2024 3:26 AM EDT Virginie Reis MD LAB BLOOD ORDERABLES [address] [address], [address] [address] * (ABNORMAL) POCT Glucose, Fingerstick (11/22/2024 2:08 AM EDT) POC Glucose 180(H) 65 - 99 mg/dL 11/22/2024 2:09 AM EDT Blood specimen / Unknown 11/22/2024 2:08 AM EDT 11/22/2024 2:09 AM EDT Virginie Reis MD POINT OF CARE TEST O RDERABLES [facility]ITAL LAB See Below from Last 3 Months Advance Directives * Full Code (Latest Code Status on File) Date Activated Date Inactivated Comments 11/22/2024 11:07 AM Care Teams Supervisor Kennel Relationship Specialty Start Date End Date David Graves MD [address] [place] [address] PCP - General Internal Medicine 11/22/24
--- OUTSIDE RECORDS SUMMARY | 2024-11-28 17:14 | XMS_ITS ---
Author Organization Formerly [facility] Address [address] [place] [address] Care Team Providers [employer] Analyst Name Role Phone Ros Barry Primary Care Provider REASON FOR VISIT update plan Encounters Encounter Location Date Provider Diagnosis [facility] [address] [place] [address] 01/06/2024 Ros Barry Plan Of Treatment No Information Progress Notes * Dominique PRADODOB:1975 (48 yo F)Acc No.[id number]:01/06/2024 Patient:?Dominique PRADO :1975???Age:48 Y???Sex:Female Address:[address], [place], [address] * true * Date:? Generated for Aleta krishna/Derek/eTransmitting on:?11/28/2024 05:14 PM EDT
--- OUTSIDE RECORDS SUMMARY | 2024-11-28 17:14 | XMS_ITS | Data Portability ---
Author Organization [facility], [address] Address [address] [place] [address] Assessment No assessment recorded. Plan of Treatment Reminders Order Date Submit Date Provider Last Modified By Organization Details Last Modified Time Details Appointments None recorded. Lab None recorded. Referral emergency medicine referral - Significant left hip pain - cannot ambulate - history of fracture as a child. Coming by EMS. 2022 023 [email or web address] 26 [facility] [address] [place] [address], [address], 3 07:26:15 Procedures None recorded. Surgeries None [...] femur. 2022 023 VERONIKA [facility], [address] [place], [address], 3 19:26:28 Medication Orders None recorded. Patient TargetsNo targets recorded. Patient Instructions Encounter Date Encounter Id Patient Instructions Last Modified By Organization Details Last Modified Time 10/01/2022 [id number] Based on your ex am and presentation [...] why my recommendation is the Emergency Room. Not available 10/01/2022 17:11:48 Reason for Referral [...] unila teral No observ ation record ed. [email or web address] [facility] [address] [place], [address], 10/01/2022 20:31:21 Result Notes None recorded. Problems Name Problem SNOMED Code Status Onset Date Resolution Date Notes Provider Name and Address Organization Details Recorded Time Attention deficit hyperactivity disorder 225335414 Active 2022 Leonora holley, PA - [facility] 3 15:54:19 Bipolar disorder 73647249 Active 2022 Leonora holley, PA - [facility] 3 15:54:24 Problem Notes None recorded. Procedures Surgical History Date Name Laterality Status Provider Name and Address Organization Details Recorded Time hysterectomy completed Leonora Hu PA - [facility] 10/01/2022 15:55:15 tonsillectomy completed Leonora Mcclain A - [facility] 10/01/2022 15:55:23 Imaging Results Imaging Date Name Status LastModified by Organiz ation Details LastModified Time 10/01/2022 XR, hip + pelvis, unilateral completed [email or web address] [facility] [address] [place], [address], 10/01/2022 20:31:21 Procedure Notes None recorded. Medical Equipment None Reported. Allergies Allergen ID Allergen Name Allergen Category Reaction Reaction Severity Criticality Documentation Date Start Date Code Code System Note Provider Name and Address Organization Details Recorded Time 863265 Tylenol medicatio n Not available Not available Not available 10/01/2022 41921 3 RxNorm Leonora Hu null, PA - [facility] 3 15:51:44 652057 ibuprofen medicatio n Not available Not available Not available 10/01/2022 5640 RxNorm Leonora Hu null, PA - [facility] 3 15:52:00 404813 Latuda medicatio n Not available Not available Not available 10/01/2022 55577 32 RxNorm Leonora Hu null, PA - [facility] 3 15:52:05 973857 aspirin medicatio n Not available Not available [...] Updated DateTime 11/05/2022 165.1 cm [facility] [place], [address], [place] - [facility] 12/01/2022 20:03:21 Date [...] /min 97.7 [degF] 165.1 cm 25.8 kg/m2 98623.8 2 g 109 mm[Hg] 76 mm[Hg] Leonora [...] SNOMED-CT Code Diagnosis ICD10 Code Diagnosis Note [id number] [facility] [address] [address] 10/01/2022 14:29:12 10/01/2022 17:16:29 Pain of left hip joint 8712887661 60913 M25.552 S/P fall out of bed x 1 week ago. [id number] [facility] [address] [place] [address] 11/05/2022 08:18:11 12/01/2022 20:03:56 Left without being seen [id number] 9102 Z53.21 Health Concerns Section Related Observation LastModified by Organization Detai ls LastModified Time None Recorded Concern Status LastModified by Organization Details LastModified Time None Recorded Advance Directives Directive None Recorded Payers Encounter Date Sequence Insurance Name Policy Number Policy Rios Covered Member ID Rios Member ID Guarantor Name 10/01/2022 1 [place] 2022 - [facility] (MEDICAID) Dominique Galvan Suzy [id number] Dominique Almonte 11/05/2022 1 [place] 2022 - [facility] (MEDICAID) Dominique Galvan Suzy [id number] Dominique Almonte Notes Date Note Type Note [...] [facility] [address] [place], [address], [place] - [facility] 10/01/2022 17:47:49 OBGyn Episode No OBEpisode recorded.
--- OUTSIDE RECORDS SUMMARY | 2024-11-28 17:14 | XMS_ITS | Data Portability ---
Author Organization [facility], [facility] Address [address] [place] [address] Care Team Providers Care Dry Cleaning Supervisor Name Role Phone VERONICA MOSQUEDA Primary Care Provider [phone] [facility] [facility] [place] OTHER Assessment Encounter Date Assessment Date Assessment [...] in a prescription for that from the [facility]) but she says she did not [...] was notified that the provider location is [facility] Patient location: home During the visit the patient? s medical history and medical record were reviewed. The patient was notified to call our office for worsening or urgent symptoms. [email or web address] Not available 11/03/2022 11:23:47 Plan of Treatment Reminders Order Date Submit Date Provider Last Modified By Organization Details Last Modified Time Details Appointments None recorded. Lab drug screen, urine - Screening for use 2022 023 [facility], [address] [place] [address], [address], 3 10:36:23 culture, urine 2022 023 [facility], [address] [place] [address], [address], 3 09:27:59 drug screen, unspecifie d specimen - Screening 2022 023 [facility], [address] [place] [address], [address], 3 10:42:45 urinalysis , dipstick 2022 023 [facility], [address] [place] [address], [address], 3 13:30:05 Referral sleep medicine referral - significan t daytime somnolence with Opelika scale 20. c/o possible seep apnea 2022 023 [facility], [address] [facility], [address], [place], [address], 14:45:20 Procedures None recorded. Surgeries None recorded. Imaging electrocar diogram 2022 023 [facility], [address], [place], [address], 3 13:30:04 CT, head, w/o contrast - recurrent loss of consciousn ess x2-3 weeks within 1 wk 2022 023 VERONIKA [facility], [address] [facility], [place], [address], 3 18:40:54 Medication Orders nicotine 14 mg/24 hr daily transderma l patch 2022 023 [id number], [address], [place], [id number], 3 13:30:05 Patient TargetsNo targets recorded. Patient Instructions Encounter Date Encounter Id Patient Instructions Last Modified By Organization Details Last Modified Time 05/15/2020 [id number] -Focus on increased water. -UA and UC [...] sponsor}}My Health To Do List {{go to My Digital Life or call si gn up for ramona text 2 quit or other stop smoking ramona contact Channel [employer]}} {{go to My [employer] Life or call si gn up for ramona text 2 quit or other stop smoking ramona contact Channel [employer]}} {{go to My [employer] or call si gn up for ramona text 2 quit or other stop smoking ramona contact Channel [employer]}} [email or web address] Not available 05/15/2020 14:36:03 Reason for Referral Sleep Medicine Referral for Daytime somnolence significant daytime somnolence with Opelika scale 20. c/o possible seep apnea Referring [...] you by autho rized labs. Not Available [address], [address], 07/13/2022 15:15:04 11/06/19 23 11/05/2022 POC UA glu UA NEGATI VE Not Available [facility] [address] [place] [address], [address], 11/05/2022 11:50:54 11/06/19 23 11/05/2022 POC UA clarity UA CLEAR Not Available [address], [address], 11/05/2022 11:50:54 11/06/19 23 11/05/2022 POC UA uro UA 0.2000 Not Available [address], [address], 11/05/2022 11:50:54 11/06/19 23 11/05/2022 POC UA ket UA NEGATI VE Not Available [address], [address], 11/05/2022 11:50:54 11/06/19 23 11/05/2022 POC UA pro UA TRACE abnormal Not Available [address], [address], 11/05/2022 11:50:54 11/06/19 23 11/05/2022 POC UA nit UA NEGATI VE Not Available [facility] [address] [place] [address], [address], 11/05/2022 11:50:54 11/06/19 23 11/05/2022 POC UA dago UA 3+ abnormal Not Available [facility] [address] [place] [address], [address], 11/05/2022 11:50:54 11/06/19 23 11/05/2022 POC UA pH UA 8.5000 Not Available [facility] [address] [place] [address], [address], 11/05/2022 11:50:54 11/06/19 23 11/05/2022 POC UA SG UA 1.0100 Not Available [facility] [address] [place] [address], [address], 11/05/2022 11:50:54 11/06/19 23 11/05/2022 POC UA color UA YELLOW Not Available [facility] [address] [place] [address], [address], 11/05/2022 11:50:54 11/06/19 23 11/05/2022 POC UA blo UA NEGATI VE Not Available [facility] [address] [place] [address], [address], 11/05/2022 11:50:54 11/06/19 23 11/05/2022 POC UA charlie UA NEGATI VE Not Available [facility] [address] [place] [address], [address], 11/05/2022 11:50:54 11/06/19 23 11/07/2022 CULTU RE, URINE , ROUTI NE culture, urine, routine CULTU RE, URINE , ROUTI NE Micro Numbe r: [id number] Test Statu s: Final Speci men [...] Trans port Tube. Not Available [facility] [address], [place], [address], 11/07/2022 09:27:59 11/06/19 23 11/12/2022 DRUG TOX AMPHE TAMIN ES, W/CON F, ORAL FLUID amphetamines NEGATI VE NG/mL <10 For addit ional infor dora cervantes e refer to http: //[facility] saud johnson.Que stDia gnost ics.c om/fa q/FAQ [...] inter preti ng these drug resul ts, pleyonathan e conta ct a [facility] Toxic ology Speci alist : 1-877 -40-R X TOX ( [phone] ), M-F, 8am-6 pm EST. These tests [...] micheal purpo ses. Not Available [facility] [address], [place], [address], 11/12/2022 10:42:45 11/06/19 23 11/12/2022 DRUG TOX AMPHE TAMIN ES, W/CON F, ORAL FLUID barbiturates NEGATI VE NG/mL <10 For addit ional infor dora cervantes e refer to http: //[facility] tonieQue stDia gnost ics.c om/fa q/FAQ 186 [...] alist : 1-877 -40-R X TOX ( [phone] ), M-F, 8am-6 pm EST. These tests [...] for clini micheal purpo ses. Not Available [facility] [address] [place] [address], [place], [address], 11/12/2022 10:42:45 11/06/19 23 11/12/2022 DRUG TOX AMPHE TAMIN ES, W/CON F, ORAL FLUID benzodiazepi pascale NEGATI VE NG/mL <0.50 For addit ional dora yates e refer to http: //[facility] schillingQue stDia gnost ics.c om/fa q/FAQ 186 [...] alist : 1-877 -40-R X TOX ( [phone] ), M-F, 8am-6 pm EST. These tests were devel oped and their az tical perfo rmanc e cherrie cteri stics have been deter mined by [facility]. They have not been clear ed or appro milan by the FDA. These assay s have been valid ated pursu ant to the CLIA regul ation s and are used for clini micheal purpo ses. Not Available [facility] [address], [address], 11/12/2022 10:42:45 11/06/19 23 11/12/2022 DRUG TOX AMPHE TAMIN ES, W/CON F, ORAL FLUID cocaine POSITI VE NG/mL <5.0 abnormal Not Available [facility] [address], [address], 11/12/2022 10:42:45 11/06/19 23 11/12/2022 DRUG TOX AMPHE TAMIN ES, W/CON F, ORAL FLUID benzoylecgon ine >250.0 NG/mL <5.0 high Benzo ylecg onine is a metab olite of cocai ne. Not Available [facility] [address], [address], 11/12/2022 10:42:45 11/06/19 23 11/12/2022 DRUG TOX AMPHE TAMIN ES, W/CON F, ORAL FLUID cocaine >250.0 NG/mL <5.0 high For addit ional infor dora cervantes e refer to http: //[facility] saud schillingQue stDia gnost ics.c om/fa q/FAQ 186 (This link is being provi ded for infor matio nal/ educa yamini l purpo ses only. ) This drug testi ng is for medic al treat ment only. Az sis was perfo rmed as non-f orens ic testi ng and these resul ts shoul d be used only by [facility] to rende r diagn osis or treat ment, or to monit or progr ess of medic al condi tions . For lucinda tance with inter preti ng these drug resul tsdora e conta ct a [facility] Toxic o[facility] Speci alist : -877 -40-R X TOX ( [phone] ), M-F, 8am-6 pm EST. These tests [...] for clini micheal purpo ses. Not Available [facility] [address], [place], [address], 11/12/2022 10:42:45 11/06/19 23 11/12/2022 DRUG TOX AMPHE TAMIN ES, W/CON F, ORAL FLUID methadone NEGATI VE NG/mL <5.0 For addit ional lizr dora cervantes e refer to http: //[facility] saud Gordon stDia gnost ics.c om/fa q/FAQ 186 (This link is being provi ded for infor matio nal/ educa yamini l purpo ses only. ) This drug testi ng is for medic al treat ment only. Az sis was perfo rmed as non-f orens ic testi ng and these resul ts shoul d be used only by [facility] to rende r diagn osis or treat ment, or to monit or progr ess of medic al condi tions . For lucindasuze newby with inter preti ng these drug resul ts, pleas e conta ct a [facility] Toxic ology Speci alist : -877 -40-R X TOX ( [phone] ), M-F, 8am-6 pm EST. These tests were devel oped and their az tical perfo rmanc e cherrie cteri stics have been deter mined by [employer] [facility]. They have not been clear ed or appro milan by the FDA. These assay s have been valid ated pursu ant to the CLIA regul ation s and are used for clini micheal purpo ses. Not Available [facility] [address], [address], 11/12/2022 10:42:45 11/06/19 23 11/12/2022 DRUG TOX AMPHE TAMIN ES, W/CON F, ORAL FLUID buprenorphin e NEGATI VE NG/mL <0.10 Not Available [facility] [address], [address], 11/12/2022 10:42:45 11/06/19 23 11/12/2022 DRUG TOX AMPHE TAMIN ES, W/CON F, ORAL FLUID fentanyl POSITI VE NG/mL <0.10 abnormal Not Available [facility] [address], [address], 11/12/2022 10:42:45 11/06/19 23 11/12/2022 DRUG TOX AMPHE TAMIN ES, W/CON F, ORAL FLUID fentanyl >25.00 NG/mL <0.10 high Not Available [facility] [address], [address], 11/12/2022 10:42:45 11/06/19 23 11/12/2022 DRUG TOX AMPHE TAMIN ES, W/CON F, ORAL FLUID heroin metabolite POSITI VE NG/mL <1.0 abnormal Not Available [facility] [address], [place], [address], 11/12/2022 10:42:45 11/06/19 23 11/12/2022 DRUG TOX AMPHE TAMIN ES, W/CON F, ORAL FLUID heroin metabolite 6.6 NG/mL <1.0 high Not Available [facility] [address], [place], [address], 11/12/2022 10:42:45 11/06/19 23 11/12/2022 DRUG TOX AMPHE TAMIN ES, W/CON F, ORAL FLUID opiates POSITI VE NG/mL <2.5 abnormal Not Available [facility] [address], [place], [address], 11/12/2022 10:42:45 11/06/19 23 11/12/2022 DRUG TOX AMPHE TAMIN ES, W/CON F, ORAL FLUID codeine NEGATI VE NG/mL <2.5 Not Available [facility] [address], [place], [address], 11/12/2022 10:42:45 11/06/19 23 11/12/2022 DRUG TOX AMPHE TAMIN ES, W/CON F, ORAL FLUID dihydrocodei ne NEGATI VE NG/mL <2.5 Not Available [facility] [address], [place], [address], 11/12/2022 10:42:45 11/06/19 23 11/12/2022 DRUG TOX AMPHE TAMIN ES, W/CON F, ORAL FLUID hydrocodone NEGATI VE NG/mL <2.5 Not Available [facility] [address], [place], [address], 11/12/2022 10:42:45 11/06/19 23 11/12/2022 DRUG TOX AMPHE TAMIN ES, W/CON F, ORAL FLUID hydromorphon e NEGATI VE NG/mL <2.5 Not Available [facility] [address], [place], [address], 11/12/2022 10:42:45 11/06/19 23 11/12/2022 DRUG TOX AMPHE TAMIN ES, W/CON F, ORAL FLUID morphine 5.5 NG/mL <2.5 high Morph ine is a metab olite of codei ne as well as a presc ribed drug, and also can be obser milan follo wing inges tion of produ cts conta ining poppy seeds . Not Available [facility] [address], [place], [address], 11/12/2022 10:42:45 11/06/19 23 11/12/2022 DRUG TOX AMPHE TAMIN ES, W/CON F, ORAL FLUID norhydrocodo ne NEGATI VE NG/mL <2.5 Not Available [facility] [address], [place], [address], 11/12/2022 10:42:45 11/06/19 23 11/12/2022 DRUG TOX AMPHE TAMIN ES, W/CON F, ORAL FLUID noroxycodone NEGATI VE NG/mL <2.5 Not Available [facility] [address], [place], [address], 11/12/2022 10:42:45 11/06/19 23 11/12/2022 DRUG TOX AMPHE TAMIN ES, W/CON F, ORAL FLUID oxycodone NEGATI VE NG/mL <2.5 Not Available [facility] [address], [place], [address], 11/12/2022 10:42:45 11/06/19 23 11/12/2022 DRUG TOX AMPHE TAMIN ES, W/CON F, ORAL FLUID oxymorphone NEGATI VE NG/mL <2.5 Not Available [facility] [address], [place], [address], 11/12/2022 10:42:45 11/06/19 23 11/12/2022 DRUG TOX AMPHE TAMIN ES, W/CON F, ORAL FLUID tapentadol NEGATI VE NG/mL <5.0 Not Available [facility] [address], [place], [address], 11/12/2022 10:42:45 11/06/19 23 11/12/2022 DRUG TOX AMPHE TAMIN ES, W/CON F, ORAL FLUID tramadol NEGATI VE NG/mL <5.0 For addit ional infor dora cervantes e refer to http: //[facility] saud schillingQue stDia gnost ics.c om/fa q/FAQ [...] alist : 1-877 -40-R X TOX ( [phone] ), M-F, 8am-6 pm EST. These tests [...] for clini micheal purpo ses. Not Available [facility] [address], [place], [address], 11/12/2022 10:42:45 05/14/20 23 05/18/2023 DRUG SCREE N-8, URINE , WITH CONFI RMATI ON GC/MS amphetamine NEG. negati ve Not Available [address], [address], 05/18/2023 10:36:23 05/14/20 23 05/18/2023 DRUG SCREE N-8, URINE , WITH CONFI RMATI ON GC/MS barbiturates NEG. negati ve Not Available [address], [address], 05/18/2023 10:36:23 05/14/20 23 05/18/2023 DRUG SCREE N-8, URINE , WITH CONFI RMATI ON GC/MS benzodiazepi ne NEG. negati ve Not Available [address], [address], 05/18/2023 10:36:23 05/14/20 23 05/18/2023 DRUG SCREE N-8, URINE , WITH CONFI RMATI ON GC/MS cocaine POS. negati ve GCMS= [facility]pl [facility] to [facility] for confi rmati on by GC/MS . Not Available [address], [address], 05/18/2023 10:36:23 05/14/20 23 05/18/2023 DRUG SCREE N-8, URINE , WITH CONFI RMATI ON GC/MS opiates POS. negati ve GCMS= Sampl e [facility] to [facility] for confi rmati on by GC/MS . Not Available [address], [address], 05/18/2023 10:36:23 05/14/20 23 05/18/2023 DRUG SCREE N-8, URINE , WITH CONFI RMATI ON GC/MS methadone NEG. negati ve Not Available [address], [address], 05/18/2023 10:36:23 05/14/20 23 05/18/2023 DRUG SCREE [...] ng/ml Fenta nyl 1 ng/ml Not Available [address], [address], 05/18/2023 10:36:23 05/14/20 23 05/18/2023 DRUG SCREE N-8, URINE , WITH CONFI RMATI ON GC/MS oxycodone NEG. negati ve Not Available [address], [address], 05/18/2023 10:36:23 05/14/20 23 05/26/2023 DRUG TOX MONIT ORING COCAI NE METAB , QN, U benzoylecgon ine >08970 NG/mL <100 high See Note 1 Not Available [facility] [address], [address], 05/26/2023 11:58:23 05/14/20 23 05/26/2023 DRUG TOX MONIT ORING COCAI NE METAB , QN, U Unknown Analyte See Note 2 Not Available [facility] [address], [address], 05/26/2023 11:58:23 05/14/20 23 05/26/2023 DRUG TOX MONIT ORING OPIAT ES EXPAN DED QN, U codeine NEGATI VE NG/mL <50 See Note 1 Not Available [facility] [address], [place], [address], 05/26/2023 11:58:24 05/14/20 23 05/26/2023 DRUG TOX MONIT ORING OPIAT ES EXPAN DED QN, U hydrocodone NEGATI VE NG/mL <50 See Note 1 Not Available [facility] [address], [place], [address], 05/26/2023 11:58:24 05/14/20 23 05/26/2023 DRUG TOX MONIT ORING OPIAT ES EXPAN DED QN, U hydromorphon e NEGATI VE NG/mL <50 See Note 1 Not Available [facility] [address], [place], [address], 05/26/2023 11:58:24 05/14/20 23 05/26/2023 DRUG TOX MONIT ORING OPIAT ES EXPAN DED QN, U morphine 274 NG/mL <50 high See Note 1 Not Available [facility] [address], [place], [address], 05/26/2023 11:58:24 05/14/20 23 05/26/2023 DRUG TOX MONIT ORING OPIAT ES EXPAN DED QN, U norhydrocodo ne 99 NG/mL <50 high See Note 1 Not Available [facility] [address], [place], [address], 05/26/2023 11:58:24 05/14/20 23 05/26/2023 DRUG TOX MONIT ORING OPIAT ES EXPAN DED QN, U noroxycodone NEGATI VE NG/mL <50 See Note 1 Not Available [facility] [address], [place], [address], 05/26/2023 11:58:24 05/14/20 23 05/26/2023 DRUG TOX MONIT ORING OPIAT ES EXPAN DED QN, U oxycodone NEGATI VE NG/mL <50 See Note 1 Not Available [facility] [address], [place], [address], 05/26/2023 11:58:24 05/14/20 23 05/26/2023 DRUG TOX MONIT ORING OPIAT ES EXPAN DED QN, U oxymorphone NEGATI VE NG/mL <50 See Note 1 Not Available [facility] [address], [place], [address], 05/26/2023 11:58:24 05/14/20 23 05/26/2023 DRUG TOX MONIT ORING OPIAT ES EXPAN DED QN, U Unknown Analyte See Note 2 Note 1 This test was lo leong and its az tical perfo rmanc e cherrie cteri stics have been deter mined by [facility]. It has not been clear [...] alist : -877 -40-R X TOX ( [phone] ), M-F, 8am-6 pm EST. Not Available [facility] [address], [place], [address], 05/26/2023 11:58:24 05/14/20 23 05/26/2023 DRUG TOX MONIT ORING FENTA NYL, QN, URINE fentanyl >500.0 NG/mL <0.5 high See Note 1 Not Available [facility] [address] [place], [place], [address], 05/26/2023 11:58:25 05/14/20 23 05/26/2023 DRUG TOX MONIT ORING FENTA NYL, QN, URINE norfentanyl >500.0 NG/mL <0.5 high See Note 1 Not Available [facility] [address] [place], [place], [address], 05/26/2023 11:58:25 05/14/20 23 05/26/2023 DRUG TOX MONIT ORING FENTA NYL, QN, URINE Unknown Analyte See Note 2 Not Available [facility] [address] [place], [place], [address], 05/26/2023 11:58:25 08/25/20 20 08/25/2020 US, bebeto swan, jessenia s, elsy abrams, unila teral No observ ation record ed. [email or web address] [facility] [address] [place] [address], [address], 08/26/2020 08:16:36 11/06/1911/05/2022 elect roccheryl diogr am No observ ation record ed. [facility] [address], [place], [address], 11/05/2022 17:24:06 11/06/19 23 11/05/2022 elect rocar diogr am No observ ation record ed. BARCODE Not Available 2022 13:43:40 11/20/19 23 11/19/2022 CT, head, w/o contr ast No observ ation record ed. [email or web address] [facility] [address] [facility], [place], [address], 11/23/2022 13:22:12 Result Notes None recorded. 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 Procedures Surgical History Date Name Laterality Status Provider Name and Address Organization Details Recorded Time 05/14/20 23 Opelika Sleepiness Scale completed Brina Mas NP [address] [place], [address], [facility] 05/14/2023 09:09:02 11/06/19 23 Smoking cessation counseling completed Kathy Bruce MA [facility] 11/05/2022 10:55:10 05/15/20 20 Smoking cessation counseling completed Venkatesh Huizar CMA [facility] 05/15/2020 14:36:03 05/15/20 20 Carbon Monoxide Testing completed Venkatesh Huizar [facility] 05/15/2020 14:36:03 01/24/20 20 Smoking cessation counseling cancelled Rosio Pineda [facility] 01/24/2020 09:21:10 11/14/19 20 Smoking cessation counseling completed Veronica Mosqueda [address] [place], [address], [facility] 11/14/2019 12:16:29 06/05/20 19 Smoking cessation counseling completed Veronica Mosqueda [address] [place], [address], [facility] 06/05/2019 13:08:50 06/05/20 19 Carbon Monoxide Testing completed Veronica Mosqueda [address] [place], [address], [facility] 06/05/2019 12:53:49 05/03/20 19 Smoking cessation counseling completed Radha Harding LPN [facility] 05/03/2019 14:49:04 05/03/20 19 Carbon Monoxide Testing completed Radha Harding LPN [facility] 05/03/2019 14:49:05 04/25/20 19 Smoking cessation counseling completed Radha Harding LPN [facility] 04/25/2019 09:33:51 04/25/20 19 Carbon Monoxide Testing completed Radha Harding LPN [facility] 04/25/2019 09:33:51 01/13/20 19 Smoking cessation counseling completed Radha Harding LPN [facility] 01/12/2019 11:19:16 01/13/20 19 Carbon Monoxide Testing completed Radha Harding LPN [facility] 01/12/2019 11:19:16 12/14/19 19 Smoking cessation counseling completed Brina Mas NP [address] [place], [address], [facility] 12/13/2018 21:14:34 11/01/19 19 Smoking cessation counseling completed Radha Harding LPN [facility] 10/31/2018 13:38:26 11/01/19 19 Carbon Monoxide Testing completed Radha Harding LPN [facility] 10/31/2018 13:38:26 07/25/20 18 Smoking cessation counseling completed Wilfredo Abreu MD [address] [place], [address], [facility] 07/25/2018 11:42:34 07/25/20 18 Carbon Monoxide Testing completed Wilfredo Abreu MD [address] [place], [address], [facility] 07/25/2018 11:42:34 02/12/20 18 Smoking cessation counseling completed Abbey Roberts [facility] 02/11/2018 09:29:14 02/12/20 18 POC Urinalysis Testing completed Abbey Roberts [facility] 02/11/2018 09:22:45 02/10/20 18 POC Urinalysis Testing completed Mamadou Calhoun [facility] 02/09/2018 09:58:23 09/24/19 18 Smoking cessation counseling completed Dina Vidales [facility] 09/24/2017 08:15:41 06/14/20 17 Smoking cessation counseling completed Radha Harding [facility] 06/14/2017 14:30:32 06/14/20 17 Carbon Monoxide Testing completed Radha Harding [facility] 06/14/2017 14:30:32 05/18/20 17 Smoking cessation counseling completed Veronica Mosqueda [address] [place] [address], [address], [facility] 05/18/2017 12:39:41 05/18/20 17 Carbon Monoxide Testing completed Veronica Mosqueda [address] [place], [address], [facility] 05/18/2017 12:39:42 05/11/20 17 Smoking cessation counseling completed Veronica Mosqueda [address] [place], [address], [facility] 05/11/2017 14:32:31 05/11/20 17 Carbon Monoxide Testing completed Veronica Mosqueda [address] [place], [address], [facility] 05/11/2017 14:32:31 05/04/20 17 Smoking cessation counseling completed Veronica Mosqueda [address] [place], [address], [facility] 05/04/2017 15:44:54 05/04/20 17 Carbon Monoxide Testing completed Veronica Mosqueda [address] [place], [address], [facility] 05/04/2017 15:44:54 09/08/19 17 Smoking cessation counseling completed Veronica Mosqueda [address] [place], [address], [facility] 09/08/2016 12:15:00 08/03/20 16 Smoking cessation counseling completed Tricia Flores [facility] 08/03/2016 11:08:39 08/03/20 16 Carbon Monoxide Testing completed Tricia Flores [facility] 08/03/2016 11:15:41 06/08/20 16 Smoking cessation counseling completed Ilda Kahn [facility] 06/08/2016 16:05:24 06/08/20 16 Carbon Monoxide Testing completed Ilda Kahn [facility] 06/08/2016 16:08:38 06/08/20 16 [facility] 16:08:54 03/31/20 16 08902: PT Evaluation completed Audrey Sierra, PT [address] [place], [address], [facility] 04/05/2016 13:09:14 01/13/20 16 POC Urinalysis Testing completed Ilda Kahn [facility] 01/13/2016 13:46:45 12/04/19 16 Smoking cessation counseling completed Leora Jacobs [facility] 12/04/2015 16:36:34 08/30/19 06 Total Hysterectomy completed Bethanie Valenzuela PA-C [address] [place] [address], [phone], [facility] 01/13/2016 13:42:51 08/30/19 06 Oophorectomy completed Bethanie Valenzuela PA-C [address] [place] [address], [address], [facility] 01/13/2016 13:42:51 08/30/18 95 Tonsillectomy completed Veronica Mosqueda [address] [place], [address], [facility] 01/12/2013 08:43:02 Imaging Results Imaging Date Name Status LastModified by Organization Details LastModified Time 08/25/2020 US, duplex, venous, extremity, unilateral completed [email or web address] [facility] Imaging Dept [address] [place], [address], 08/26/2020 08:16:36 11/05/2022 electrocardiogram completed [address], [address], 11/05/2022 17:24:06 11/05/2022 electrocardiogram completed BARCODE Informa tion not available 11/05/2022 13:43:40 11/19/2022 CT, head, w/o contrast completed [address] [facility] [address] [place], [address], 11/23/2022 13:22:12 Procedure Notes None recorded. Medical Equipment None Reported. Allergies Allergen ID Allergen Name Allergen Category Reaction Reaction Severity Criticality Documentation Date Start Date Code Code System Note Provider Name and Address Organization Details Recorded Time 945534 Chantix medicatio n other mild Not available 01/12/2013 96050 0 RxNorm sever e night agarwal , sleep walki ng Veronica Mosqueda [address] [place] [address], [phone], [facility] 3 09:01:40 786581 gabapenti n medicatio n headache Not available Not available 12/04/2013 22716 RxNorm Veronica Mosqueda [address] [place], [address], [facility] 4 14:21:38 037945 topiramat e medicatio n other Not available Not available 05/18/2017 04847 RxNorm sever e depre ssion Veronica Mosqueda [address] [place], [address], [facility] 7 12:25:41 901359 Latuda medicatio n hives severe Not available 11/14/2019 00158 32 RxNorm Ebony Garza, HIGH [employer]CHO[employer] PRINCIPAL null, [facility] 0 11:55:18 040980 Tylenol medicatio n rash Not available Not available 01/11/2020 3 RxNorm per aller gist, not to take Veronica Sandra Mosqueda [address], [place], [address], [facility] 0 16:22:28 Medications Name Sig Start Date [...] active From psychait rist - Ros Mosqueda [facility] Not Available Not Available Not Available Effexor XR active From [facility] Ros Mosqueda [facility] Not Available Not Available Not Available Topamax active Prescrib ed by Ros Mosqueda Not Available Not Available Not Available Geodon active From [facility] Ros Mosqueda [facility] Not Available Not Available Not Available [...] Not Available Not Available Not Available Afluria 4764-0954 (PF) 45 mcg (15 mcg x 3)/0.5 [...] /min 93 % 93 % Venkatesh Huizar [facility] 05/15/2020 14:47:25 Date Recorded Body height Body mass index (BMI) Body weight Provider Name and Address Organization Details Last Updated DateTime 08/29/2020 162.56 cm 26.6 kg/m2 43931.82 g Tricia Mark [facility] 08/29/2020 13:29:09 Date Recorded Body height Body mass index (BMI) Body weight Heart rate Systolic blood pressure Diastolic blood pressure Provider Name and Address Organization Details Last Updated DateTime 3 165.1 cm 28.3 kg/m2 81034.7 g 107 /min 127 mm[Hg] 87 mm[Hg] Dina johnson [facility] 3 11:15:01 Date Recorded Body height Body mass index (BMI) Body weight Heart rate Systolic blood pressure Diastolic blood pressure Provider Name and Address Organization Details Last Updated DateTime 3 165.1 cm 29.1 kg/m2 87675.6 6 g 88 /min 118 mm[Hg] 78 mm[Hg] Kathy Bruce MA [facility] 3 10:49:25 Date Recorded Oxygen saturation Oxygen saturation in Arterial blood by Pulse oximetry Provider Name and Address Organization Details Last Updated DateTime 11/05/2022 98 % 98 % Brina Mas NP [address] [place] [address], [phone], [facility] 11/05/2022 11:49:50 Date Recorded Body height Body mass index (BMI) Body weight Heart rate Systolic blood pressure Diastolic blood pressure Provider Name and Address Organization Details Last Updated DateTime 3 165.1 cm 29 kg/m2 53890.8 7 g 70 /min 116 mm[Hg] 76 mm[Hg] Kathy Bruce MA [facility] 3 09:01:32 Social History Question Answer Notes LastModified by Organizat ion Details LastModified Time Tobacco Smoking Status Former Smoker quit end November 2019 quit 05/29/2016 Smoking 2/daily Tricia Mark, HIGH SCHO[employer] PRINCIPAL null, [place] - [facility] 08/03/2016 11:10:54 Do You Have An Advance Directive? No Information not available 01/12/2013 What Is Your Level Of Alcohol Consumption? None Information not available 06/08/2016 What Is Your Occupation? [employer] Information not available 01/12/2013 When Did You [...] SNOMED-CT Code Diagnosis ICD10 Code Diagnosis Note [id number] ALIX Chan , [facility], OFFICE [address] [place] [address] 01/12/2013 08:15:47 01/12/2013 09:12:16 [id number] Dina Lester RN FP, [facility], OFFICE [address] [place] [address] 11/03/2013 09:37:04 11/03/2013 10:30:14 Urinary tract infectious disease 15570271 Patient instructed to push fluids, to follow up for persistent or worsening symptoms or fever or back pain. Nausea and vomiting 00604438 discussed danger of OD'ing on OTC pain meds, pt expressed understand ing. check labs Pyelonephritis 89529117 suspect possible pyelo given n-v. Also has back pain although it is low back and no CVT but will rx for pyelo top be safe. [id number] Claribel Abbott LPN FP, [facility], OFFICE [address] [place] [address] 11/17/2013 10:06:15 11/17/2013 11:00:41 Backache 017719721 unusual presention w/ tenderness to light touch (not limited to a dermatome) as well as musculoske letal type pain. will start gabapentin at bedtime, advise to see physiatry and f/u w/ PCP [id number] CHIP Blackwell, [facility], OFFICE [address] [place] [address] 12/04/2013 13:39:46 12/04/2013 15:50:40 Adult health examination 496387740 see Risk Assessment and Lifestyle Change Counseling section above Counseling [id number] Backache 875354156 Pt briggs d to stop taking gabapentin due to worsening headache. She has an appointmen t scheduled with physiatry for the beginning of december. She is already on topamax which isn't helping with side pain, although PT is helping with back pain. Pt doesn't want to have to rely on vicodin given family hx of addiction. 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 Will put in PA for lyrica for now. [id number] CHIP Gonzalez, [facility], OFFICE [address] [place] [address] 03/12/2015 11:56:10 03/13/2015 07:51:28 Herpes zoster 9593092 classic rash on L leg appears S4 [...] f/up visit to consider change to abx [id number] , [facility], OFFICE [address] [place] [address] 06/11/2015 09:04:37 06/11/2015 09:33:19 Hip pain 79249960 M25.723 [id number] Brina Mas NP , [facility], OFFICE [address] [place] [address] 12/04/2015 16:25:02 12/04/2015 17:11:43 Tobacco user 571972313 Z72.0 Urine color abnormal 167 502701 R82.90 Abdominal pain 18051833 R10.9 Diarrhea 12288375 R19.7 x2 months [id number] Kathy Peck NP , [facility], OFFICE [address] [place] [address] 12/12/2015 16:46:06 12/12/2015 17:19:34 Abdominal pain 76397292 R10.9 Unclear eitiology Diarrhea 97975534 R19.7 Labs are stable except for Lipase [id number] ROXI Avelar, [facility], OFFICE [address] [place] [address] 01/13/2016 12:34:29 01/13/2016 13:52:12 Nicotine dependence 74687710 Z87.891 Tobacco user 521024960 Z 72.0 Abdominal pain 62074034 R10.9 Mass of yolis dy structure 501538515 R22.9 [id number] Veronica UGALDE, [facility], OFFICE [address] [place] [address] 03/18/2016 09:08:30 03/18/2016 09:36:19 Cervical radiculopathy 48319402 M54.12 Arm pain is likely coming from neck. Pt prefers to avoid steroids due to concerns over it triggering keaton, which is understand able. Will prescribe anti-infla mmatory, have pt increase the referRecom mendations as below. [id number] Audrey Sierra, PT Physical Therapy, [address] [address] 03/31/2016 16:05:07 04/06/2016 07:38:41 Cervical radiculopathy 22165445 M54.12 [id number] Veronica Mosqueda , [facility], OFFICE [address] [place] [address] 06/08/2016 15:38:26 06/08/2016 16:57:30 Cigarette smoker 64797843 F17.210 Tobacco user 193672886 Z 72.0 Epigastric pain 16103000 R10.13 Recom Diarrhea 09232541 R19.7 Bipolar disorder 5093240 4 F31.9 [id number] Joana Peters NP , [facility], OFFICE [address] [place] [address] 08/03/2016 11:05:48 08/03/2016 13:08:00 Cigarette smoker 00282033 F17.210 Tobacco user 472583156 Z 72.0 Breast lump 67897783 N63 [id number] Evon Rivas , [facility], OFFICE [address] [place] [address] 09/08/2016 11:44:25 09/08/2016 13:13:25 Cellulitis 650944870 L03.90 Plan as below. [id number] Veronica UGALDE, [facility], OFFICE [address] [place] [address] 6 09/29/2016 13:21:53 09/29/2016 13:55:39 Cellulitis 450194448 L03.90 Milder infection than last time. Will change antibiotic as pt with incomplete response to antibiotic last time, refer back to surgery for lumps and ?infection , and prescribe medication for pain management Breast lump 02464554 N63 Three tiny ones. [id number] Veronica UGALDE, [facility], OFFICE [address] [place] [address] 01/19/2017 10:42:23 01/19/2017 12:59:58 Ulceration of breast 920512847 N61.1 L breast, nonhealing , but some granulatio n tissue present. Will call breast center to try to get pt appointmen t there. Other plans as below. Breast lump 15293452 N63 [id number] CHIP Gonzalez, [facility], OFFICE [address] [place] [address] 05/04/2017 15:12:51 05/04/2017 16:01:42 Breast lump 19763070 N63 Will get mammo and breast U/S; hopefully this is simple cyst. Chest pain 04554039 R07. 9 EKG normal. Chest wall tenderness . Likely strained ribs. Cigarette smoker 9481369 7 F17.210 Tobacco user 077865846 Z 72.0 [id number] Veronica UGALDE, [facility], OFFICE [address] [place] [address] 05/11/2017 13:52:29 05/11/2017 14:49:50 Cigarette smoker 47658152 F17.210 Pt has patches. Plan as below. Tobacco user 447479710 Z 72.0 Low back pain 135757169 M54.5 Pt with pain poorly controlled due to erratic medication use. Plan to get it back under control as below. Pt with only #9 percocet right now, so will need extra script. Recommenda tions as below. [id number] Veronica UGALDE [facility], OFFICE [address] [place] [address] 05/18/2017 11:25:57 05/18/2017 12:40:15 Intervertebral disc disorder of lumbar region with myelopathy 31745008 M51.06 Plan as below. Cigarette smoker 8330795 7 F17.210 Plan as below. Tobacco user 841746415 Z 72.0 [id number] Veronica UGALDE, [facility], OFFICE [address] [place] [address] 06/14/2017 14:18:29 06/14/2017 14:59:45 Cigarette smoker 41748196 F17.210 Tobacco user 694014116 Z 72.0 Interverte bral disc disorder of lumbar region with myelopathy 90544494 M51.06 Pt unable to get to PT here; will refer to [facility] down where she is and give a second script of both medication s for now until she can get scheduled with them. Other plans as below. Cellulitis and abscess of breast 951891306 N61.1 L breast. mostly indurated without any fluctuance . Will start on 4 daily antibiotic , probiotic (yogurt) and pt will let me know who NOT to send her to if it isn't improving [id number] , [facility], OFFICE [address] [place] [address] 06/24/2017 10:46:02 06/24/2017 11:37:19 Intervertebral disc disorder of lumbar region with myelopathy 61741975 M51.06 Pt plans to have appointmen t with [facility]; she to call. Scripts given to fill next week; she knows we can't replace those. Cigarette smoker 7827308 7 F17.210 Pt will retry again when she is further out from . Tobacco user 737654940 Z 72.0 Cellulitis and abscess of breast 331587148 N61.1 L breast. Will change antibiotic and plan on referring to [facility] for surgery assessment . [id number] Kathy Peck NP , [facility], OFFICE [address] [place] [address] 09/24/2017 08:05:07 09/24/2017 10:03:04 Cigarette smoker 04639840 F17.210 Tobacco user 312065116 Z 72.0 Chest pain 18132383 R07. 9 Diarrhea 26246572 R19.7 Chronic- will follow up w/ gastroente rology Nausea and vomiting 1693 1999 R11.2 -bland diet-incre ase clear fluids-adv ance diet as tolerated- labs today-foll ow up in 1 week-call w/ any new concerns.- encouraged to stop smoking marajauna as might be cause of throwing up Palpitations 05122241 R0 0.2 -holter monitor applied today [id number] Liliane Beckman RN BSN , [facility], OFFICE [address] [place] [address] 09/28/2017 09:40:53 09/28/2017 12:05:14 Palpitations 47085385 R00.2 -holter monitor applied today [id number] MD TRAM Olson, [facility], OFFICE [address] [place] [address] 6 10/25/2017 15:40:39 10/25/2017 17:06:21 Pruritic disorder 559938767 L29.9 Abdominal bloating 25032 9008 R14.0 [id number] TRAM, [facility], OFFICE [address] [place] [address] 6 02/09/2018 08:57:01 02/09/2018 10:24:40 Low back pain 133863107 M54.5 Pain also consistent with lumbar strain.Dis cussed rest, ice/heat, ibuprofen. Trial baclofen as she could not tolerate cyclobenza florencia.PT eval. Flank pain 764027213 R10 .9 Constant and colicky flank pain radiating to groin with microscopi c hematuria suggestive of renal stones.Ult rasound in ED 6 days ago negative.W ill check labs and CT.Push fluids. Continue ibuprofen. [id number] DAVID Hobbs, [facility], OFFICE [address] [place] [address] 02/11/2018 09:22:09 02/11/2018 11:23:06 Lower abdominal pain 89853345 R10.30 U/A today reveals 3+ blood, 1+ protein, trace leuksCT scan is scheduled at [facility] today at 11 AM, but with increased pain, we reviewed the options and pt is opting to go to ER for further management Expect paperwork filled out for [facility] ER [id number] MD TRAM Olson, [facility], OFFICE [address] [place] [address] 6 07/25/2018 10:55:57 07/25/2018 13:54:21 Acute upper respiratory infection 34957007 J06.9 Acute low back pain 2788 71249 M54.5 Cigarette smoker 2528281 7 F17.617 [id number] Veronica UGALDE, [facility], OFFICE [address] [place] [address] 6 10/31/2018 13:27:39 10/31/2018 14:16:45 Cigarette smoker 88339339 F17.210 Will send script for patches at higher dose; pt has lonzenges. Tobacco user 810031273 Z 72.0 Bipolar disorder 1959313 4 F31.9 Agree pt disabled from bipolar; would defer to specialty providers for this paperwork. Badillo's esophagus 3029 30978 K22.70 Refilled medication s. Low back pain 050952072 M54.5 Pt doing home exercises as currently unable to participat e in regular PT. Ibuprofen refilled. Cervical radiculopathy 79061300 M54.12 Pt has hx of this; she is managing at the moment. Could consider sending back to physiatry if needed in the future. Acute sinusitis 80114150 J01.90 Ddx includes sinusitis versus TMJ dysfunctio n. Plan as below. [id number] ENRIQUETA Cottrell, [facility], OFFICE [address] [place] [address] 12/13/2018 16:56:10 12/14/2018 13:36:24 Tick bite 73981856 W57.XXXA Fatigue 50349946 R53.83 significan t fatigue, muscle aches x [...] if worsening or new symptoms Muscle pain 03852285 M79 .10 Tobacco user 379262509 Z 72.0 no cigs in 1 week! [id number] Veronica UGALDE, [facility], OFFICE [address] [place] [address] 01/12/2019 11:11:42 01/12/2019 12:45:40 Cigarette smoker 57489294 F17.210 Pt using patch and cutting down. Tobacco user 531343195 Z 72.0 Fatigue 68195378 R53.83 Recommend nonfasting labwork today for fatigue, particular ly given PPI use. Rib pain 150134630 R07.8 1 Unclear what is driving this. Nausea 486470221 R11.0 Will treat with nausea medication and an anti-spasm otic in case that is driving the stomach pain. Spasm of back muscles 20 4312945 M62.830 Plan as below. [id number] [facility], OFFICE [address] [place] [address] 01/19/2019 10:35:37 01/19/2019 11:30:56 Splenomegaly 46736388 R16.1 Left upper quadrant pain 477694472 R10.12 Ddx includes gastritis, PUD, diverticul itis (less likely with normal CT), less likely pancreatit is (normalize d lipase in ER and normal CT). Unclear where splenomega ly may come into this so will order U/S of that although usually not causing of pain Diarrhea 67487493 R19.7 Gastroesop hageal reflux disease 387056149 K21.9 [id number] [facility], OFFICE [address] [place] [address] 04/25/2019 09:21:15 04/25/2019 10:03:34 Cigarette smoker 76956906 F17.210 Pt using patch and cutting down. Tobacco user 163534215 Z 72.0 Nausea and vomiting 1693 2000 R11.2 Low back pain 032404456 M54.5 Pt with severe pain, numbness in leg, abnormal DTR on L, trouble emptying bladder. Would like to try to get urgent MRI as question if having disc disease that may require surgical interventi on. [id number] Marisol Barrios , [facility], OFFICE [address] [place] [address] 05/03/2019 14:41:41 05/03/2019 15:34:28 Cigarette smoker 39245689 F17.210 Pt using patch and cutting down. Tobacco user 024440961 Z 72.0 Paresthesia 99531165 R20 .2 Feet and hands and perineum. Lumbar MRI unchanged from 2017 and that wouldn't cause a problem with the hands. Would recommend MRI of the brain to evaluate for more systemic cause. Cobalamin deficiency 190 330623 E53.8 Will check B vitamins to make sure no deficiency . Low back pain 964942718 M54.5 Pt with severe pain, numbness in leg, abnormal DTR on L, trouble emptying bladder. Now with some incontinen ce both fecal and urinary. No spinal cord compressio n seen on MRI which is good but unclear what is happening. [id number] Veronica Mosqueda , [facility], OFFICE [address] [place] [address] 05/10/2019 14:02:38 05/11/2019 15:45:46 Low back pain 172752923 M54.5 Pt with severe pain, numbness in leg, abnormal DTR on L, trouble emptying bladder. Now with some incontinen ce both fecal and urinary. No spinal cord compressio n seen on MRI which is good but unclear what is happening. MRI brain also normal. Will talk to neurosurg/ physiatry about options for interventi on. Paresthesia 87448921 R20 .2 MRI was normal. Will check lyme, B6, lead. Will trial steroid burst but not too high of dose due to hx of bipolar. [id number] Veronica Mosqueda , [facility], OFFICE [address] [place] [address] 06/05/2019 12:08:11 06/05/2019 14:05:31 Paresthesia 17356378 R20.2 Feet and hands and perineum. Lumbar MRI unchanged from 2017 and that wouldn't cause a problem with the hands. MRI was normal. Neurosurge ry doesn't feel that this is related to back. Will treat B1 and see if that helps. Cobalamin deficiency 190 316843 E53.8 B1 was slightly low. Will replete Cigarette smoker 2273303 7 F17.210 Pt using patch and cutting down. Tobacco user 998401999 Z 72.0 Low back pain 220670012 M54.5 Pt with severe pain, numbness in [...] up on ortho referral. Sprain of foot 21233611 S93.602D More likely sprain, but plan on follow-up as below in case symptoms are worsening. [id number] Veronica Mosqueda , [facility], OFFICE [address] [place] [address] 11/14/2019 11:47:05 11/14/2019 17:58:18 Cigarette smoker 95655518 F17.210 Pt using patch and cutting down. Tobacco user 106076455 Z 72.0 Pruritic disorder 303181 002 L29.9 Will test labwork for underlying issue. Question if could be more of an allergic reaction, however, and would also refer to an toddler guide for further evaluation . Fatigue 98540466 R53.83 Will also reevaluate labwork for this. Epigastric pain 25816805 R10.13 Recom [id number] Veronica UGALDE, [facility], OFFICE [address] [place] [address] 01/10/2020 15:10:46 01/10/2020 16:10:56 Cigarette smoker 07623156 F17.210 Pt quit last month (11/2019) cold turkey, which is fantastic. Tobacco user 286078664 Z 72.0 Mass of right breast 131 5063436 9135202 N63.10 Ordered mammo; pt would want to see provider at [facility] if needing to see someone so will do there. Nausea and vomiting 1691999 R11.2 Will try to break cycle. Epigastric pain 97640354 R10.13 Suspicious vomiting cycle has aggravated stomach as pt can't take normal meds. Recommend dicyclomin e first and then can try mucosal lidocaine if not helping. [id number] ENRIQUETA Solano, [facility], OFFICE [address] [place] [address] 05/15/2020 14:30:25 05/17/2020 13:05:48 Urinary tract infectious disease 78930386 N39.0 Patient instructed to push fluids, to follow up for persistent or worsening symptoms or fever or back pain. [id number] MD TRAM Orellana, [facility], OFFICE [address] [place] [address] 08/29/2020 13:25:20 08/29/2020 17:08:11 Pain in right lower limb 877875756 M79.604 Bipolar disorder 1011775 4 F31.9 [id number] Bethanie Valenzuela PA-C , [facility], OFFICE [address] [place] [address] 11/03/2022 11:08:49 11/04/2022 09:43:34 Syncope 501475852 R55 - pt reporting three syncopal episodes in the last two days, no warning and wakes on the floor with no memory of the incident- advised to proceed to ER (do not drive) and patient agrees with plan- she will follow up in the office after the ER visit Blood in urine 42553032 R31.9 - since yesterday, advised to mention in ER visit [id number] Kathy Bruce MA , [facility], OFFICE [address] [place] [address] 11/05/2022 10:42:31 11/13/2022 10:29:16 Active or passive immunization 980699506 Z23 TD: DeclinesFl u: DeclinesCo vid: Declines Tobacco user 308315892 Z 72.0 We discussed your smoking today for more than 3 minutes. Cigarette use is the leading cause of preventabl e disease, disability , and in the [place]. We talked about tools and medication s available to help you in smoking cessation. We discussed utilizing our smoking cessation head wrestling coach and online resources. Your personal goal: taper with nicotine repalcemen t2-10 cigs a day Syncope 987839517 R55 multiple episodes of loss of consciousn [...] EC and LS Leukocytes in urine 2757 60356 R82.79 recently tx for UTI at the ED. will recheck urine culture given atypical symptoms Glossodynia 82900502 K14 .6 unclear etiology. will check B12 Multiple joint pain [id number] M25.50 working up with labs. No current joint swelling Cocaine abuse [id number] F 14.10 last used a week ago. I strongly recommend avoiding this especially while feeling unwell [id number] Brina Mas, ENRIQUETA , [facility], OFFICE [address] [facility] [phone] 05/14/2023 08:54:53 05/17/2023 12:46:47 Active or passive immunization [id number] Z23 TD: DeclinesFl u: DeclinesCo vid: Declines recommende d Daytime somnolence [id number] R40.0 Fatigue and significan t daytime somnolence and is no longer driving. Possibly multifacto rial given abnormal UDS in October. [place] scale 20. Referring for sleep med consult. She will do labs now, ordered back in october for similar symptoms. Long-term current use of drug therapy [id number] Z79.899 UDS positive for cocaine, fentanyl, heroin, opiates, morphine when checked in October. She denies drug use other than marijuana that does not come from a dispensary . Will recheck UDS today. Follow up with pcp in 1 month Peripheral edema [id number] R60.9 pt w/ recurrent report of lower extremity edema. No edema on exam today. LCTA. pt denies dyspnea. Will continue to monitor. Can try compressio n during the day as needed. Elevate legs when possible Bipolar disorder [id number] F31.9 Continue with psych. Consider Health Concerns Section Related Observation LastModified by Organization Detai ls LastModified Time None Recorded Concern Status LastModified by Organization Details LastModified Time None Recorded Advance Directives Directive N: Payers Encounter Date Sequence Insurance Name Policy Number Policy Rios Covered Member ID Rios Member ID Guarantor Name 05/15/2020 1 MEDICA[place] - [facility] PRIOR TO 11/28/2022 - [facility] (MEDICAID) Dominique Teea [id number] Dominique Teea 08/29/2020 1 [place] PRIOR TO 2022 - [facility] (MEDICAID) Dominique Teea [id number] Dominique Teea 11/03/2022 1 [place]IOR [place] 2022 - [facility] (MEDICAID) Dominique Teea [id number] Dominique Suzy 11/05/2022 1 [place]IOR [place] 2022 - [facility] (MEDICAID) Dominique Teea [id number] Dominique Teea 05/14/2023 1 [facility] - DOS ON OR AFTER 2022 - [facility] (MEDICAID REPLACEMENT - HMO) Dominique Teea [id number] Dominique Almonte Notes Date Note Type Note [...] secThis was a telehealth video visit using abcdexperts in lieu of in-person visit due to the Covid 19 pandemic. Patient was notified that the provider location is home office. Patient location is home. During the visit the patient's medical history and medical record are reviewed. The patient is notified to call our office for worsening or urgent symptoms, and to schedule an in person visit if needed. Joana Peters NP [address] [place] [address], [phone], [facility] [place] 15:03:43 08/29/2020 text/html This a virtual v isit due to covid pandemic.08/29/2020Tim e for intake: {{1 2 3 4* 5 6 7 8 9 1 0 11 12 13 14 15 16 17 18 19 20 21 22 23 24 25}} minutes.Patient is complaining of pain in her right inner thigh. She states that she was seen on August 25 at the [facility] emergency room and was told she [...] the hip were negative. Michael Finn MD [address] [place] [address], [phone], [facility] [place] 08/29/2020 13:51:23 11/03/2022 text/html Presents for ER [...] reporting hematuria- worsening anxiety Bethanie Valenzuela PA-C [address] [place] [address], [phone], [facility] [place] 11/03/2022 11:25:04 11/05/2022 text/html a/vmg-smoking [id number] bypatient.Notes:a couple cigs a day. interested in [...] not feeling well when [place] was in [place] was at friends [place]. smelled like strong urine- she has been [...] reporting hematuria- worsening anxiety Brina Mas NP [address] [place] [address], [phone], [facility] [place] 11/05/2022 13:30:33 05/14/2023 text/html 47yo F presents [...] not feeling well when [place] was in [place] was at friends [place] in [place]. smelled like strong urine- she has been [...] reporting hematuria- worsening anxiety Brina Mas NP [address] [place] [address], [phone], [facility] [place] 05/16/2023 19:14:34 OBGyn Episode No OBEpisode recorded.
== END 2024-11-28 15:26 | disposition home or self-care (01) ==
DX: R94.31 Abnormal electrocardiogram [ECG] [EKG] (principal); R79.89 Other specified abnormal findings of blood chemistry; R13.10 Dysphagia, unspecified; J39.2 Other diseases of pharynx

== ENCOUNTER → 2024-11-28 14:23 | Outpatient (BNVA) | payer OTHER, SELFPAY | DX: R94.31 Abnormal electrocardiogram [ECG] [EKG] (principal); R79.89 Other specified abnormal findings of blood chemistry; R13.10 Dysphagia, unspecified; J39.2 Other diseases of pharynx | CPT/HCPCS: 99212 ==

== ENCOUNTER 2024-12-12 15:20 | Outpatient (AMB) | payer OTHER, SELFPAY ==
--- NOTE | 2024-12-12 15:25 | A.OFFPC_ITS ---
Vital Signs 12/12/24 15:26 Height 5 ft 5 in Weight 192 lb 2 oz BMI 32.0 BP 110/68 Blood Pressure Location Lt brachial Position Sitting Pulse 88 Pulse Source Pulse Oximeter Temp 97.2 F Temp Source Temporal Artery Scan Pulse Oximetry (%) 92 Oxygen Delivery Method Room Air Intake Visit Reasons: f/u dysphagia Intake Note: Patient is here to follow up on Dysphagia. Weekday Babysitter Required: No Computer Installer: Present Accompanied by: Friend Allergies Penicillins Allergy (Severe, Verified 12/12/24 15:26) Anaphylaxis acetaminophen [From Tylenol] Allergy (Intermediate, Verified 12/12/24 15:26) Hives aspirin [ASPIRIN] Allergy (Intermediate, Verified 12/12/24 15:26) UNKNOWN gabapentin Allergy (Intermediate, Verified 12/12/24 15:26) Hives varenicline [From CHANTIX] Allergy (Intermediate, Verified 12/12/24 15:26) HIVES ibuprofen Allergy (Verified 12/12/24 15:26) Anaphylaxis lurasidone [From Latuda] Allergy (Verified 12/12/24 15:26) Unknown Bees Allergy (Intermediate, Uncoded 12/12/24 15:26) Anaphylaxis cefuroxime Allergy (Mild, Uncoded 12/12/24 15:26) Itching Medication List - Last Reconciled 12/12/24 by Dali Nugent PA-C aripiprazole 10 mg PO DAILY cholecalciferol (vitamin D3) 125 mcg PO DAILY clonazepam 1 mg PO BID PRN dextroamphetamine-amphetamine 15 mg 1 tab PO BID esomeprazole magnesium (Nexium) 40 mg PO DAILY linaclotide (Linzess) 145 mcg PO DAILY venlafaxine ER 75 mg PO QAM Tobacco use date assessed: 12/12/24 Dental Screening Dental Screen Date: 09/21/24 HPI f/u dysphagia HPI Details 49-year-old female with past medical his tory of ADHD and constipation last seen 11/2024 coming in for follow up.? Presenting with a complex medical history primarily characterized by QT prolongation, nausea, vomiting, abdominal pain, fatigue, neck pain, and headache. Issues with prolonged QT interval have led to significant discussion concerning appropriate medication regimens. Nausea and vomiting developed on , markedly worsened by Wednesday with instances of coffee ground emesis, raising concerns for a GI bleed. Episodes of vomiting are frequent and paired with LLQ abdominal pain. Fatigue has been increasing, exacerbated by persistent neck pain following a fall. This fall also resulted in an occipital headache, with imaging previously performed. Her dysphagia has improved with the use of steroids and she has not ENT evaluation in January [facility] Medical History Tongue swelling Vomiting Trichomonas infection Cervical cancer Badillo's esophagus Encounter for screening colonoscopy (~2019) Hiatal hernia Depression Anxiety Surgical History H/O endoscopy (~2019) S/P tonsillectomy H/O: hysterectomy (~1999) Family History Other Adopted Social History Household Members: Significant Other Housing: Apartment Alcohol intake: never Patient Tobacco Use Status: Former Tobacco user Tobacco use type: Cigarette Cigarette Packs Per Day: 0.5 Cigarettes Per Day: 10 Years Smoked: 26 e-Cigarette/Vaping Use: Never Used Second Hand Smoke Exposure: Yes Substance Use Type: Marijuana service: No Current occupational status: unemployed Sexual orientation: Straight/Heterosexual Gender identity: Female Cognitive needs: No Hearing needs: No Vision needs: No Questionnaire Thrive Questionnaire Date Thrive assessed: 09/21/24 JOVITA-7 AMB Questionnaire JOVITA-7 Date JOVITA - 7 assessed: 09/21/24 Source: Developed by Drs. Obi Eden, Danitza Funk, Jose Guadalupe Sweeney and colleagues, with an educational jennifer from [employer] Review of Systems Const Denies body aches, Denies chills, Denies fever(s), Reports headache(s) and Denies poor appetite Eyes Reports no additional complaints ENT Denies dysphagia, Denies dizziness, Reports headache(s) and Denies odynophagia Card Denies chest pain, Denies syncope, Denies edema, Denies irregular heart rhythm, Reports lightheadedness and Denies dyspnea Resp Denies cough and Denies dyspnea GI Reports abdominal pain, Denies constipation, Denies dysphagia, Denies diarrhea, Reports nausea, Denies odynophagia and Reports vomiting Reports no additional complaints Musc Reports no additional complaints and Denies abnormal gait Skin/Breast Reports system reviewed and no additional complaints, except as documented Neuro Denies abnormal gait, Denies dizziness, Denies syncope and Reports headache(s) Psych Reports no additional complaints Physical exam (Primary Care) Vital Signs: Last Vital Signs Temp 97.2 F 12/12/24 15:26 Pulse 88 12/12/24 15:26 BP 110/68 12/12/24 15:26 Pulse Ox 92 12/12/24 15:26 Oxygen Delivery Method Room Air 12/12/24 15:26 BMI result Body Mass Index 32.0 Tobacco/Smoking Status: Tobacco use Status Tobacco use date assessed 12/12/24 12/12/24 15:30 Patient Tobacco Use Status Former Tobacco user 12/12/24 15:30 Tobacco use type Cigarette 12/12/24 15:30 e-Cigarette/Vaping Use Never Used 12/12/24 15:30 Thrive Assessment: Date of Thrive Assessment Date Thrive assessed 09/21/24 12/12/24 15:30 Const General: cooperative, healthy appearing, comfortable and no acute distress Orientation/consciousness: patient oriented x3 HENMT Head: Yes normocephalic Ears: hearing grossly normal bilaterally General nose exam: Normal external nose present Eyes General: appearance normal, both eyes and all related structures Conjunctivae: conjunctivae normal Neck Neck: Yes full ROM and Yes no lymphadenopathy Resp Effort & Inspection: normal respiratory effort Auscultation: clear to auscultation bilaterally, no crackles, no rales, no rhonchi and no wheezes Cardio Rate: regular rate Rhythm: regular rhythm GI Palpation (GI): Soft to palpation, not firm, Tenderness to palpation present (GI) in the LLQ and suprapubicly, not rigid and No Rebound tenderness present General: Yes no CVA tenderness Back/Spine/Pelvis Back: no CVA tenderness Skin General skin exam: no rashes or lesions noted Neuro Other: Patient appears neurologically intact -no signs of neurological deficit or weakness General: patient oriented x3 Cranial nerves: Yes CN's II-XII intact bilaterally Gait exam (Neuro): Normal gait present Extrem General: Yes normal to inspection, Yes full ROM and No edema Psych Affect: normal affect Attitude: cooperative Insight: Good insight present (Psych) Judgement: Good judgement present (Psych) Coding Level of Care Code Est Pt Level 4 (26269) Diagnoses Prolonged Q-T interval on ECG R94.31 Elevated LFTs R79.89 Dysphagia R13.10 Throat mass J39.2 Nausea and vomiting, unspecified vomiting type R11.2 Vomiting type: unspecified Nausea presence: with nausea Traumatic head injury less than 3 months ago S09.90XA Left lower quadrant abdominal pain R10.32 Assessment & Plan Assessment & Plan (1) Prolonged Q-T interval on ECG: Code(s): R94.31 - Abnormal electrocardiogram [ECG] [EKG] Category: Medical Plan: Per [place] discharge ABRAHAM was ordered and referral was placed to cardiology for further evaluation. I did also discuss with the patient to reach out to her psychiatrist to adjust medications in light of new findings. (2) Elevated LFTs: Code(s): R79.89 - Other specified abnormal findings of blood chemistry Category: Medical Plan: plan to repeat blood work to monitor LFTs and abdominal US. (3) Dysphagia: Code(s): R13.10 - Dysphagia, unspecified Category: Medical Plan: Referral was placed to ENT for further evaluation of the throat swelling. Steroids improved swallowing initially and patient has appt with ENT in January. (4) Throat mass: Code(s): J39.2 - Other diseases of pharynx Category: Medical Plan: Urgent referral was placed to ENT for further evaluation of throat mass. I reviewed with the patient red flag symptoms and when to present for re- evaluation. Appt in January. (5) Vomiting: Code(s): R11.10 - Vomiting, unspecified Category: Medical Qualifiers: Vomiting type: unspecified Nausea presence: with nausea Qualified Code(s): R11.2 - Nausea with vomiting, unspecified Plan: Patient has been having vomiting since she does also mentioned episodes of coffee-ground emesis. Along with the vomiting she has been having left lower quadrant pain which began prior to vomiting. I stressed the importance of ED evaluation as she will likely need an endoscopy to evaluate for possible upper GI bleed. I stressed the importance of ED evaluation however patient continued to decline. I also discussed dangers of GI bleed and risk of GI been untreated patient understands the risk and continues to decline ED evaluation. I ordered for blood work to rule out electrolyte abnormality or anemia. Patient was strongly advised to go to ED (6) Traumatic head injury less than 3 months ago: Code(s): S09.90XA - Unspecified injury of head, initial encounter Category: Medical Plan: Patient having continued headache consistent with postconcussive syndrome. Recommend resting, avoidance of screen time and avoidance of strenuous activity. I did also order for an MRI to rule out other abnormality or brain bleed. She continues to have headache and new onset of nausea. I did recommend ED evaluation however patient declined. (7) Left lower quadrant abdominal pain: Code(s): R10.32 - Left lower quadrant pain Category: Medical Plan: Patient having severe tenderness to palpation of left lower quadrant of the abdomen and suprapubic area. I strongly advised patient go to ED for evaluation of acute abdominal pain and vomiting of coffee-ground emesis however she adamantly declines. I discussed with patient the importance of evaluation and need for urgent imaging however she declines. I reviewed red flag symptoms and when to present for re-evaluation with the patient she understands the risks and continues to decline. Plan I will coordinate ongoing medication management with psychiatry to mitigate QT prolongation risks. The patient's GI symptoms mandate urgent evaluation and possible endoscopy, necessitating communication to attend the ED for emergent symptoms. Headaches persisting after a fall warrant MRI workup to rule out any complicated etiologies. Neck pain management will focus on easing muscular discomfort with non-NSAID analgesics, and compression therapy is advised for ankle swelling. Fatigue management will involve addressing sleep disruption due to pain and formulating a suitable pain management strategy. Regular follow-up with GI, psychiatry, and cardiology are advised. This note was constructed using voice recognition software. While every effort has been made to ensure accuracy and senior engineer, still areas may have been included sometimes these areas may affect the content or meeting of the given symptoms. Total time spent caring for the patient today was 30 minutes. This includes time spent before the visit reviewing the chart, time spent during the visit, and time spent after the visit and documentation. Patient was informed and verbally consented to the use of an ambient scribe for clinic note documentation during this visit. Orders: Orders MR head/brain wo con Today S09.90XA - Unspecified injury of head, initial encounter Comprehensive Met. Panel Today R11.2 - Nausea with vomiting, unspecified Complete Blood Count Auto Diff Today R11.2 - Nausea with vomiting, unspecified, Z00.00 - Encounter for general adult medical examination without abnormal findings Referrals Psychiatry Outpatient Consultation Service F32.9 - Major depressive disorder, single episode, unspecified, F41.9 - Anxiety disorder, unspecified, F90.9 - Attention-deficit hyperactivity disorder, unspecified type Medications: New cyclobenzaprine 5 mg PO BEDTIME 30 tabs 0RF
[2024-12-12 15:26] VITALS: BP 110/68; PULSE 88; TEMP 36.2; O2SAT 92; BMI 32.0
--- OUTSIDE RECORDS SUMMARY | 2024-12-12 18:31 | XMS_ITS | Clinical Summary ---
Author Organization Formerly [facility] Address [address] [place] [address] Care Team Providers Care Band Instrument Repairer Name Role Phone David Graves MD Primary Care Provider [phone]- [phone] Allergies Active Allergy Reactions Criticality Noted Date [...] Description 11/22/2024 5:10 AM EDT Ancillary Procedure [facility] Radiology [address] [place] [address] Provider, File Room 11/22/2024 5:05 AM EDT Ancillary Procedure [facility] Radiology [address] [place] [address] Provider, File Room 11/22/2024 1:52 AM EDT - 11/22/2024 2:31 PM EDT Emergency [facility] Emergency Department [address] [place] [address] Virginie Reis MD Sherif, Mohamed, MD Singh, Gagan, MD Narrowing of airway (Primary Dx); Neck pain; Syncope and collapse; Airway obstruction; Prolonged QT interval; Left against medical advice Discharge Disposition: Left Against Medical Advice/ AMA 11/22/2024 Travel 11/21/2024 Orders Only [facility] Radiology [address] [place] [address] Provider, File Room 11/21/2024 Orders Only [facility] Radiology [address] [place] [phone] Provider, File Room from Last 3 Months [...] is included. Ventricular rate 81 BPM EKG [facility] Atrial rate 81 BPM EKG [facility] P-R interval 156 ms EKG [facility] QRS duration 88 ms EKG [facility] Q-T interval 438 ms EKG [facility] QTC calculation (Bazett) 509 ms EKG [facility] P axis 73 degrees EKG [facility] R axis 38 degrees EKG [facility] T axis 60 degrees EKG [facility] 11/22/2024 2:08 PM EDT Narrative [facility] - 11/22/2024 7:12 PM EDT Normal sinus [...] Reis MD ECG ORDERABLES Performing Organization Address City/[facility]/ZIP Co de Phone Number [facility] * CT Head Archive for Reference Only (11/22/2024 5:04 AM EDT) Only the most recent of2 resultswithin the time period is included. Narrative [facility] - 11/22/2024 5:04 AM EDT This study has been auto finalized and does not contain a result. File Room Provider IMG DIGITIZE FILMS [facility] [phone] * CT Reconstructed Data Without IV Contrast [...] root impingement. Interpreted by: ??Venkatesh Mendoza DO Sports Book Board Attendant I personally reviewed the images and the [...] criteria. The data was processed at the soil technologist workstation for generation of MIP images. [...] criteria. The data was processed at the soil technologist workstation for generation of MIP images. [...] root impingement. Interpreted by: Venkatesh Mendoza DO Sports Book Board Attendant I personally reviewed the images and the resident's preliminary report and AGREE with the report as it is now presented (RADPAL1). Virginie Reis MD [facility] [place] ORDERABLES * CTA Head and Neck [...] root impingement. Interpreted by: ??Venkatesh Mendoza DO Sports Book Board Attendant I personally reviewed the images and the [...] criteria. The data was processed at the soil technologist workstation for generation of MIP images. [...] criteria. The data was processed at the soil technologist workstation for generation of MIP images. [...] root impingement. Interpreted by: Venkatesh Mendoza DO Sports Book Board Attendant I personally reviewed the images and the resident's preliminary report and AGREE with the report as it is now presented (RADPAL1). Virginie Reis MD IMG CT ORDERABLES * High Sensitivity Troponin T (11/22/2024 2:47 AM EDT) [facility] High Sensitivity Troponin T 14 <15 ng/L 11/22/2024 11:41 AM EDT [facility] Delta (Change) NO PREVIOUS RESULT <3 11/22/2024 11:41 AM EDT [facility] 11/22/2024 2:47 AM EDT 11/22/2024 3:26 AM EDT Virginie Reis MD [place] [address], [place] [address] * proBNP, N-terminal (11/22/2024 2:47 AM EDT) [facility] proBNP, N-terminal 94 <125 pg/mL 11/22/2024 11:41 AM EDT [facility] 11/22/2024 2:47 AM EDT 11/22/2024 3:26 AM EDT Virginie Reis MD LAB BLOOD ORDERABLES Performing Organization Address City/[facility]/[place] [address], [place] [address] * (ABNORMAL) Complete Blood Count, with Differential (11/22/2024 2:47 AM EDT) [facility] White Blood Cell Count 7.7 4.0 - 11.0 Thou/uL 11/22/2024 3:40 AM [facility] Platelet Count 309 150 - 450 Thou/uL 11/22/2024 3:40 AM [facility] Hemoglobin 15.8(H) 11.7 - 15.7 g/dL 11/22/2024 3:40 AM [facility] Hematocrit 46.5 35.0 - 47.0 % 11/22/2024 3:40 AM [facility] Red Blood Cell Count 5.47(H) 4.00 - 5.40 Mil/uL 11/22/2024 3:40 AM [facility] MCV 85 80 - 100 fL 11/22/2024 3:40 AM [facility] MCH 28.9 26.0 - 34.0 pg 11/22/2024 3:40 AM [facility] MCHC 34.0 30.0 - 36.0 g/dL 11/22/2024 3:40 AM [facility] RDW 12.5 11.5 - 14.5 % 11/22/2024 3:40 AM [facility] MPV 11.0 7.5 - 12.5 fL 11/22/2024 3:40 AM [facility] Neutrophils Auto 83.5 % 11/23/19 3:40 AM [facility] Immature Granulocytes 0.7 % 11/22/2024 3:40 AM [facility] Lymphocytes Auto 13.4 % 11/23/19 3:40 AM [facility] Monocytes Auto 2.3 % 11/22/2024 3:40 AM [facility] Eosinophils Auto 0.0 % 11/23/19 3:40 AM [facility] Basophils Auto 0.1 % 11/22/2024 3:40 AM [facility] Abs Neutrophils Auto 6.39 2.00 - 7.50 Thou/uL 11/22/2024 3:40 AM [facility] Abs Immature Granulocytes 0.05 0.00 - 0.10 Thou/uL 11/22/2024 3:40 AM [facility] Abs Lymphocytes Auto 1.03(L) 1.50 - 4.50 Thou/uL 11/22/2024 3:40 AM EDT [facility] Abs Monocytes Auto 0.18(L) 0.20 - 1.50 Thou/uL 11/22/2024 3:40 AM EDT [facility] Abs Eosinophils Auto 0.00 0.00 - 0.70 Thou/uL 11/22/2024 3:40 AM EDT [facility] Abs Basophils Auto 0.01 0.00 - 0.20 Thou/uL 11/22/2024 3:40 AM EDT [facility] Blood Blood specimen / Unknown 11/22/2024 2:47 AM EDT 11/22/2024 3:26 AM EDT Virginie Reis MD LAB BLOOD ORDERABLES Performing Organization Address City/[facility] [place] [address], [place] [address] * (ABNORMAL) Magnesium (11/22/2024 2:47 AM EDT) Magnesium 3.0(H) 1.6 - 2.7 mg/dL 11/22/2024 4:00 AM EDT [facility] Blood Blood specimen / Unknown 11/22/2024 2:47 AM EDT 11/22/2024 3:26 AM EDT Virginie Reis MD LAB BLOOD ORDERABLES Performing Organization Address City/[facility]/[place] [address], [place] [address] * (ABNORMAL) Comprehensive Metabolic Panel (11/22/2024 2:47 AM EDT) Glucose 175(H) 65 - 99 mg/dL 11/22/2024 4:00 AM EDT [facility] Comment:Fasting: <100 mg/dL, Non-Fasting: <200 mg/dL (ADA 2005) Blood Urea Nitrogen (BUN) 15 8 - 21 mg/dL 11/22/2024 4:00 AM EDT [facility] Creatinine 0.5 0.4 - 1.1 mg/dL 11/22/2024 4:00 AM [facility] eGFR >90 >59 11/22/2024 4:00 AM [facility] Comment:CKD-EPI (2020) in mL /min/1.73 sq meters. Sodium 134(L) 136 - 145 mmol/L 11/22/2024 4:00 AM [facility] Potassium 3.5 3.4 - 5.3 mmol/L 11/22/2024 4:00 AM [facility] Chloride 91(L) 98 - 107 mmol/L 11/22/2024 4:00 AM [facility] CO2 28 22 - 33 mmol/L 11/22/2024 4:00 AM [facility] Calcium 10.0 8.7 - 10.5 mg/dL 11/22/2024 4:00 AM [facility] Alkaline Phosphatase 73 32 - 122 U/L 11/22/2024 4:00 AM [facility] Aspartate Aminotrans (AST) 87(H) 10 - 50 U/L 11/22/2024 4:00 AM [facility] Alanine Aminotrans (ALT) 95(H) 10 - 50 U/L 11/22/2024 4:00 AM [facility] Bilirubin, Total 0.4 0.2 - 1.0 mg/dL 11/22/2024 4:00 AM [facility] Protein, Total 7.3 6.3 - 8.3 g/dL 11/22/2024 4:00 AM [facility] Albumin 4.3 3.5 - 5.0 g/dL 11/22/2024 4:00 AM [facility] BUN/Creatinine Ratio 30(H) 10.0 - 25.0 Ratio 11/22/2024 4:00 AM [facility] Globulin 3.0 1.5 - 3.9 g/dL 11/22/2024 4:00 AM [facility] Albumin/Globulin Ratio 1.4 1.0 - 3.0 Ratio 11/22/2024 4:00 AM [facility] Anion Gap 15 7 - 17 11/22/2024 4:00 AM [facility] Blood Blood specimen / Unknown 11/22/2024 2:47 AM EDT 11/22/2024 3:26 AM EDT Virginie Reis MD LAB BLOOD ORDERABLES [address] [address], [address] [address] * (ABNORMAL) POCT Glucose, Fingerstick (11/22/2024 2:08 [...] Inactivated Comments 11/22/2024 11:07 AM Care Teams Band Instrument Repairer Relationship Specialty Start Date End Date David Graves MD [address] [place] [address] PCP - General Internal Medicine 11/22/24
--- OUTSIDE RECORDS SUMMARY | 2024-12-12 18:31 | XMS_ITS | Clinical Summary ---
Author Organization [facility] ity Address [address] [place] [address] Care Team Providers Care Supply Requirements Officer Name Role Phone Lilliana Mosqueda MD Primary [...] 01/25/2003 COVID-19 Vaccine (2023-2 5 season) 2024 Colorectal Cancer Screening: Colonoscopy 07/02/2024 Depression Screening 07/02/2024 HIV Screening 07/02/2024 Hepatitis C Screening 07/02/2024 Social Influencers of Health Screening 07/02/2024 Influenza Vaccine (Season Ended) 2025 HIB Vaccines Aged Out No longer eligi [...] age to complete this topic Meningococcal B Vaccine Aged Out No l onger eligible based on patient's age to complete [...] age to complete this topic Care Teams Supply Requirements Officer Relationship Specialty Start Date End Date Lilliana Mosqueda MD [address] [place] [phone] PCP - General Family Medicine 05/31/19
--- OUTSIDE RECORDS SUMMARY | 2024-12-12 18:31 | XMS_ITS | Data Portability ---
Author Organization [facility] [address] Address [address] [place] [address] Assessment No assessment recorded. Plan of Treatment Reminders Order Date Submit Date Provider Last Modified By Organization Details Last Modified Time Details Appointments None recorded. Lab None recorded. Referral emergency medicine referral - Significant left hip pain - cannot ambulate - history of fracture as a child. Coming by EMS. 2022 023 [email or web address] 26 [facility] [address] [place] [address], [address], 3 07:26:15 Procedures None recorded. Surgeries None [...] pain tracking down the femur. 2022 023 [employer] [facility], [address] [facility], [place], [address], 3 19:26:28 Medication Orders None recorded. Patient TargetsNo targets recorded. Patient Instructions Encounter Date Encounter Id Patient Instructions Last Modified By Organization Details Last Modified Time 10/01/2022 [id number] Based on your ex am and presentation [...] why my recommendation is the Emergency Room. [email or web address] Not available 10/01/2022 17:11:48 Reason for Referral [...] unila teral No observ ation record ed. [email or web address] [facility] [address] [place], [address], 10/01/2022 20:31:21 Result Notes None recorded. Problems Name Problem SNOMED Code Status Onset Date Resolution Date Notes Provider Name and Address Organization Details Recorded Time Attention deficit hyperactivity disorder 310906354 Active 2022 Leonora holley, [place] - [facility] 3 15:54:19 Bipolar disorder 02211379 Active 2022 Leon[facility], [facility] - [facility] [...] 10/01/2022 XR, hip + pelvis, unilateral completed [email or web address] [facility] [address] [place], [address], 10/01/2022 20:31:21 Procedure Notes None recorded. Medical Equipment None Reported. Allergies Allergen ID Allergen Name Allergen Category Reaction Reaction Severity Criticality Documentation Date Start Date Code Code System Note Provider Name and Address Organization Details Recorded Time 944307 Tylenol medicatio n Not available Not available Not available 10/01/2022 45741 3 RxNorm Leonora Hu null, PA - [facility] 3 15:51:44 206476 ibuprofen medicatio n Not available Not available Not available 10/01/2022 5640 RxNorm Leonora Hu null, PA - [facility] 3 15:52:00 015591 Latuda medicatio n Not available Not available Not available 10/01/2022 51050 32 RxNorm Leonora Hu null, PA - [facility] 3 15:52:05 735835 aspirin medicatio n Not available Not available [...] Updated DateTime 11/05/2022 165.1 cm [facility] [place], [address], [place] - [facility] 12/01/2022 20:03:21 Date [...] /min 97.7 [degF] 165.1 cm 25.8 kg/m2 46753.8 2 g 109 mm[Hg] 76 mm[Hg] Leonora [...] SNOMED-CT Code Diagnosis ICD10 Code Diagnosis Note [id number] [facility] [address] [address] 10/01/2022 14:29:12 10/01/2022 17:16:29 Pain of left hip joint 3982455112 77273 M25.552 S/P fall out of bed x 1 week ago. [id number] [facility] [address] [address] [place] [address] 11/05/2022 08:18:11 12/01/2022 20:03:56 Left without being seen [id number] 9102 Z53.21 Health Concerns Section Related Observation LastModified by Organization Detai ls LastModified Time None Recorded Concern Status LastModified by Organization Details LastModified Time None Recorded Advance Directives Directive None Recorded Payers Encounter Date Sequence Insurance Name Policy Number Policy Rios Covered Member ID Rios Member ID Guarantor Name 10/01/2022 1 [place] PRIOR [place] 2022 - [facility] (MEDICAID) Dominique Galvan Suzy [id number] Dominique Almonte 11/05/2022 1 [place] 2022 - [facility] (MEDICAID) Dominique Galvan Suzy [id number] Dominique Almonte Notes Date Note Type Note [...] [facility] [address] [place], [address], [place] - [facility] 10/01/2022 17:47:49 OBGyn Episode No OBEpisode recorded.
== END 2024-12-12 16:25 | disposition home or self-care (01) ==
LOC: HO.HMCH 15:20
DX: R94.31 Abnormal electrocardiogram [ECG] [EKG] (principal); R79.89 Other specified abnormal findings of blood chemistry; R13.10 Dysphagia, unspecified; J39.2 Other diseases of pharynx; R11.2 Nausea with vomiting, unspecified; S09.90XA Unspecified injury of head, initial encounter; R10.32 Left lower quadrant pain

== ENCOUNTER → 2024-12-12 15:20 | Outpatient (BNVA) | payer OTHER, SELFPAY | DX: R13.10 Dysphagia, unspecified (principal); F90.9 Attention-deficit hyperactivity disorder, unspecified type; K59.00 Constipation, unspecified; R94.31 Abnormal electrocardiogram [ECG] [EKG]; R79.89 Other specified abnormal findings of blood chemistry; J39.2 Other diseases of pharynx; R11.2 Nausea with vomiting, unspecified; R10.32 Left lower quadrant pain; F32.9 Major depressive disorder, single episode, unspecified; F41.9 Anxiety disorder, unspecified; S09.90XA Unspecified injury of head, initial encounter; X58.XXXA Exposure to other specified factors, initial encounter; Y93.9 Activity, unspecified; Y92.9 Unspecified place or not applicable; Y99.9 Unspecified external cause status | CPT/HCPCS: 99212 ==

== ENCOUNTER 2024-12-17 19:20 | Outpatient (REF) | payer OTHER, SELFPAY ==
--- NOTE | ~2024-12-17 | MR_ITS ---
CLINICAL HISTORY: S09.90XA - Unspecified injury of head, initial encounter --- Additional Notes or Sp ecial Instructions: patient had a fall 3 weeks ago with continued headache r o brain bleed MR Brain without gadolinium Comparison: CT/SR - CT HEAD/BRAIN WO IV CON - 11/21/24 18:11 EDT Findings: No restricted diffusion. No intra-axial mass or hemorrhage. No midline shift. No hydrocephalus. Vascular flow voids are intact. Small focus of left superior frontal gyrus subcortical T2/FLAIR hyperintensity is seen. Orbital contents are unremarkable. Moderate mucosal thickening and opacification of the left maxillary sinus, remainder of the paranasal sinuses and bilateral mastoid air cells are clear. No focal bone lesion. IMPRESSION: No acute findings. Small focus of T2/FLAIR hyperintense signal within the left subcortical superior frontal gyrus. Differentials include changes related to remote trauma, chronic microvascular ischemic changes or changes related to migraine headaches. Left maxillary sinus disease. This document has been electronically signed by: Bernie Tapia MD on 12/17/2024 20:20:45
--- OUTSIDE RECORDS SUMMARY | 2024-12-17 19:22 | XMS_ITS | Clinical Summary ---
Author Organization [facility] Address [address] [place] [address] Care Team Providers Care Dairy And Food Laboratory Assistant Name Role Phone David Graves MD Primary Care Provider [phone] Allergies Active Allergy Reactions Criticality Noted Date Comments Gabapentin Other (See Comments) Low 11/22/2024 Penicillins Other (See Comments) Low 11/22/2024 Medications amphetamine-dex troamphetamine (ADDERALL) 15 MG tablet Take 1 tablet [...] mouth daily. Active famotidine (PEPCID) 20 MG tabletIndicatio ns:Narrowing of airway Take 1 tablet (20 mg total) by mouth 2 (two) times a day. 60 tablet 11/22/2024 Active Active Problems Problem Noted Date Diagnosed Date Syncope and collapse 11/22/2024 Encounters Date Type Department Care Team Description 11/22/2024 5:10 AM EDT Ancillary Procedure [facility] Radiology [address] [place] [address] Provider, File Room 11/22/2024 5:05 AM EDT Ancillary Procedure [facility] Radiology [address] [place] [place] [address] Provider, File Room 11/22/2024 1:52 AM EDT - 11/22/2024 2:31 PM EDT Hospital Encounter [facility] Emergency Department [address] [place] [address] Virginie Reis MD Sherif, Mohamed, MD Singh, Gagan, MD Narrowing of airway (Primary Dx); Neck pain; Syncope and collapse; Airway obstruction; Prolonged QT interval; Left against medical advice Discharge Disposition: Left Against Medical Advice/ AMA 11/22/2024 Travel 11/21/2024 Orders Only [facility] Radiology [address] [place] [place] [address] Provider, File Room 11/21/2024 Orders Only [facility] Radiology [address] [place] [address] Provider, File Room from Last 3 Months Social History Tobacco Use Types Packs/Day Years Used Date Smoking Tobacco: Never Assessed Comments Unknown Sex and Gender Information Value Date Recorded Sex Assigned at Female 11/22/2024 2:02 AM EDT Legal Sex Female 10:57 PM EDT Gender Identity Female 11/22/2024 2:02 AM [...] 2022 Influenza Vaccine 03/30/2024 COVID-19 Vaccine ( season) 2024 Procedures Procedure Name Priority Date/Time [...] 3:52 AM EDT PROBNP, N-TERMINAL STAT 11/22/2024 2 :47 AM EDT HIGH SENSITIVITY TROPONIN T STAT [...] of2 resultswithin the time period is included. Pathologist [facility] Ventricular rate 81 BPM EKG [facility] Atrial rate 81 BPM EKG [facility] P-R interval 156 ms EKG [facility] QRS duration 88 ms EKG [facility] Q-T interval 438 ms EKG [facility] QTC calculation (Bazett) 509 ms EKG [facility] P axis 73 degrees EKG [facility] R axis 38 degrees EKG [facility] T axis 60 degrees [facility] 11/22/2024 2:08 PM EDT Narrative [facility] - 11/22/2024 7:12 PM EDT Normal [...] Keller Steven (547) on 11/22/2024 7:12:51 PM us Virginie Reis MD ECG ORDERABLES Final Result Performing Organization Address [facility] de Phone Number [facility] * CT Head Archive for Reference Only (11/22/2024 5:04 AM EDT) Only the most recent of2 resultswithin the time period is included. Jo ALDRICH - 11/22/2024 5:04 AM EDT This study has been auto finalized and does not contain a result. us File Room Provider IMG DIGITIZE FILMS Final Resu lt Performing Organization Address [facility] Co de Phone Number VALDEMAR [phone] * CT Reconstructed Data Without IV Contrast [...] root impingement. Interpreted by: ??Venkatesh Mendoza DO Residential Mortgage Underwriter I personally reviewed the images and the [...] criteria. The data was processed at the instrumentation technologist workstation for generation of MIP images. [...] criteria. The data was processed at the instrumentation technologist workstation for generation of MIP images. [...] root impingement. Interpreted by: Venkatesh Mendoza DO Residential Mortgage Underwriter I personally reviewed the images and the resident's preliminary report and AGREE with the report as it is now presented ([email or web address]). Virginie Reis MD [facility] [place] ORDERABLES Final Result * CTA Head and Neck W/O and [...] root impingement. Interpreted by: ??Venkatesh Mendoza DO Residential Mortgage Underwriter I personally reviewed the images and the [...] criteria. The data was processed at the instrumentation technologist workstation for generation of MIP images. [...] criteria. The data was processed at the instrumentation technologist workstation for generation of MIP images. [...] root impingement. Interpreted by: Venkatesh Mendoza DO Residential Mortgage Underwriter I personally reviewed the images and the resident's preliminary report and AGREE with the report as it is now presented ([email or web address]). us Virginie Reis MD IMG CT ORDERABLES Final Result * High Sensitivity Troponin T (11/22/2024 2:47 AM EDT) High Sensitivity Troponin T 14 <15 ng/L 11/22/2024 11:41 AM EDT [facility] Delta (Change) NO PREVIOUS RESULT <3 11/22/2024 11:41 AM EDT [facility] 11/22/2024 2:47 AM EDT 11/22/2024 3:26 AM EDT us Virginie Reis MD LAB BLOOD ORDERABLES Final Resul t Performing Organization Address [facility] Co de Phone Number [address] [address], [address] [address] * proBNP, N-terminal (11/22/2024 2:47 AM EDT) proBNP, N-terminal 94 <125 pg/mL 11/22/2024 11:41 AM EDT [facility] 11/22/2024 2:47 AM EDT 11/22/2024 3:26 AM EDT us Virginie Reis MD LAB BLOOD ORDERABLES Final Resul t Performing Organization Address City/[facility] Co de Phone Number [address] [place] [address], [address] [address] * (ABNORMAL) Complete Blood Count, with Differential (11/22/2024 2:47 AM EDT) White Blood Cell Count 7.7 4.0 - 11.0 Thou/uL 11/22/2024 3:40 AM [facility] Platelet Count 309 150 - 450 Thou/uL 11/22/2024 3:40 AM [facility] Hemoglobin 15.8(H) 11.7 - 15.7 g/dL 11/22/2024 3:40 AM [facility] Hematocrit 46.5 35.0 - 47.0 % 11/22/2024 3:40 AM [facility] Red Blood Cell Count 5.47(H) 4.00 - 5.40 Mil/uL 11/22/2024 3:40 AM [facility] MCV 85 80 - 100 fL 11/22/2024 3:40 AM [facility] MCH 28.9 26.0 - 34.0 pg 11/22/2024 3:40 AM [facility] MCHC 34.0 30.0 - 36.0 g/dL 11/22/2024 3:40 AM [facility] RDW 12.5 11.5 - 14.5 % 11/22/2024 3:40 AM [facility] MPV 11.0 7.5 - 12.5 fL 11/22/2024 3:40 AM [facility] Neutrophils Auto 83.5 % 11/23/19 3:40 AM [facility] Immature Granulocytes 0.7 % 11/22/2024 3:40 AM [facility] Lymphocytes Auto 13.4 % 11/23/19 3:40 AM [facility] Monocytes Auto 2.3 % 11/22/2024 3:40 AM [facility] Eosinophils Auto 0.0 % 11/23/19 3:40 AM [facility] Basophils Auto 0.1 % 11/22/2024 3:40 AM [facility] Abs Neutrophils Auto 6.39 2.00 - 7.50 Thou/uL 11/22/2024 3:40 AM [facility] Abs Immature Granulocytes 0.05 0.00 - 0.10 Thou/uL 11/22/2024 3:40 AM EDT [facility] Abs Lymphocytes Auto 1.03(L) 1.50 - 4.50 Thou/uL 11/22/2024 3:40 AM EDT [facility] Abs Monocytes Auto 0.18(L) 0.20 - 1.50 Thou/uL 11/22/2024 3:40 AM EDT [facility] Abs Eosinophils Auto 0.00 0.00 - 0.70 Thou/uL 11/22/2024 3:40 AM EDT [facility] Abs Basophils Auto 0.01 0.00 - 0.20 Thou/uL 11/22/2024 3:40 AM EDT [facility] Blood Blood specimen / Unknown 11/22/2024 2:47 AM EDT 11/22/2024 3:26 AM EDT us Virginie Reis MD LAB BLOOD ORDERABLES Final Resul t Performing Organization Address City/[facility]/[place] [address], [place] [address] * (ABNORMAL) Magnesium (11/22/2024 2:47 AM EDT) Magnesium 3.0(H) 1.6 - 2.7 mg/dL 11/22/2024 4:00 AM EDT [facility] Blood Blood specimen / Unknown 11/22/2024 2:47 AM EDT 11/22/2024 3:26 AM EDT us Virginie Reis MD LAB BLOOD [place] [address], [place] [address] * (ABNORMAL) Comprehensive Metabolic Panel (11/22/2024 2:47 AM EDT) Glucose 175(H) 65 - 99 mg/dL 11/22/2024 4:00 AM [facility] Comment:Fasting: <100 mg/dL, Non-Fasting: <200 mg/dL (ADA 2004) Blood Urea Nitrogen (BUN) 15 8 - 21 mg/dL 11/22/2024 4:00 AM [facility] Creatinine 0.5 0.4 - 1.1 mg/dL 11/22/2024 4:00 AM [facility] eGFR >90 >59 11/22/2024 4:00 AM [facility] Comment:CKD-EPI (2020) in mL /min/1.73 sq meters. Sodium 134(L) 136 - 145 mmol/L 11/22/2024 4:00 AM [facility] Potassium 3.5 3.4 - 5.3 mmol/L 11/22/2024 4:00 AM [facility] Chloride 91(L) 98 - 107 mmol/L 11/22/2024 4:00 AM [facility] CO2 28 22 - 33 mmol/L 11/22/2024 4:00 AM [facility] Calcium 10.0 8.7 - 10.5 mg/dL 11/22/2024 4:00 AM [facility] Alkaline Phosphatase 73 32 - 122 U/L 11/22/2024 4:00 AM [facility] Aspartate Aminotrans (AST) 87(H) 10 - 50 U/L 11/22/2024 4:00 AM [facility] Alanine Aminotrans (ALT) 95(H) 10 - 50 U/L 11/22/2024 4:00 AM [facility] Bilirubin, Total 0.4 0.2 - 1.0 mg/dL 11/22/2024 4:00 AM [facility] Protein, Total 7.3 6.3 - 8.3 g/dL 11/22/2024 4:00 AM [facility] Albumin 4.3 3.5 - 5.0 g/dL 11/22/2024 4:00 AM [facility] BUN/Creatinine Ratio 30(H) 10.0 - 25.0 Ratio 11/22/2024 4:00 AM [facility] Globulin 3.0 1.5 - 3.9 g/dL 11/22/2024 4:00 AM [facility] Albumin/Globulin Ratio 1.4 1.0 - 3.0 Ratio 11/22/2024 4:00 AM EDT [facility] Anion Gap 15 7 - 17 11/22/2024 4:00 AM EDT [facility] Blood Blood specimen / Unknown 11/22/2024 2:47 AM EDT 11/22/2024 3:26 AM EDT Virginie Reis MD LAB BLOOD ORDERABLES Final Resul t Performing Organization Address City/[facility]/ZIP Co de Phone Number [address] [address], [address] [address] * (ABNORMAL) POCT Glucose, Fingerstick (11/22/2024 2:08 AM EDT) POC Glucose 180(H) 65 - 99 mg/dL 11/22/2024 2:09 AM EDT Blood specimen / Unknown 11/22/2024 2:08 AM EDT 11/22/2024 2:09 AM EDT us Virginie Reis MD POINT OF CARE TEST ORDERABLES Fi nal Result Performing Organization Address City/[facility] Co de Phone Number HOSPITAL LAB See Below from Last 3 Months Insurance [facility] [employer] Advance Directives * Full Code (Latest Code Status on File) Date Activated Date Inactivated Comments 11/22/2024 11:07 AM Care Teams Dairy And Food Laboratory Assistant Relationship Specialty Start Date End Date David Graves MD [address] [place] [address] Dr Aponte, [place]O [address] PCP - General Internal Medicine 11/22/24
--- OUTSIDE RECORDS SUMMARY | 2024-12-17 19:22 | XMS_ITS | Data Portability ---
Author Organization [facility], [address] Address [address] [place] [address] Assessment No assessment recorded. Plan of Treatment Reminders Order Date Submit Date Provider Last Modified By Organization Details Last Modified Time Details Appointments None recorded. Lab None recorded. Referral emergency medicine referral - Significant left hip pain - cannot ambulate - history of fracture as a child. Coming by EMS. 2022 023 [email or web address] 26 [facility] [address] [place] [address], [address], 3 07:26:15 Procedures None recorded. Surgeries None [...] femur. 2022 023 [email or web address] [facility], [address] [place], [address], 3 19:26:28 Medication Orders None recorded. Patient TargetsNo targets recorded. Patient Instructions Encounter Date Encounter Id Patient Instructions Last Modified By Organization Details Last Modified Time 10/01/2022 [id number] Based on your ex am and presentation [...] why my recommendation is the Emergency Room. [email or web address] Not available 10/01/2022 17:11:48 Reason for Referral [...] unila teral No observ ation record ed. [email or web address] [facility] [address] [place], [address], 10/01/2022 20:31:21 Result Notes None recorded. Problems Name Problem SNOMED Code Status Onset Date Resolution Date Notes Provider Name and Address Organization Details Recorded Time Attention deficit hyperactivity disorder 912685866 Active 2022 Leonora holley, [place] - [facility] 3 15:54:19 Bipolar disorder 04754547 Active 2022 [facility], [facility] - [facility] [...] 10/01/2022 XR, hip + pelvis, unilateral completed [email or web address] [facility] [address] [place], [address], 10/01/2022 20:31:21 Procedure Notes None recorded. Medical Equipment None Reported. Allergies Allergen ID Allergen Name Allergen Category Reaction Reaction Severity Criticality Documentation Date Start Date Code Code System Note Provider Name and Address Organization Details Recorded Time 966737 Tylenol medicatio n Not available Not available Not available 10/01/2022 12311 3 RxNorm Leonora Hu null, PA - [facility] 3 15:51:44 966235 ibuprofen medicatio n Not available Not available Not available 10/01/2022 5640 RxNorm Leonora Hu null, PA - [facility] 3 15:52:00 065226 Latuda medicatio n Not available Not available Not available 10/01/2022 87545 32 RxNorm Leonora Hu null, PA - [facility] 3 15:52:05 405861 aspirin medicatio n Not available Not available [...] Updated DateTime 11/05/2022 165.1 cm [facility] CAST[facility] [place], [address], [place] - [facility] 12/01/2022 20:03:21 Date [...] /min 97.7 [degF] 165.1 cm 25.8 kg/m2 43725.8 2 g 109 mm[Hg] 76 mm[Hg] Leonora [...] SNOMED-CT Code Diagnosis ICD10 Code Diagnosis Note [id number] [facility] [address] [address] 10/01/2022 14:29:12 10/01/2022 17:16:29 Pain of left hip joint 8528500139 46718 M25.552 S/P fall out of bed x 1 week ago. [id number] [facility] [address] [place] [address] 11/05/2022 08:18:11 12/01/2022 20:03:56 Left without being seen [id number] 9102 Z53.21 Health Concerns Section Related Observation LastModified by Organization Detai ls LastModified Time None Recorded Concern Status LastModified by Organization Details LastModified Time None Recorded Advance Directives Directive None Recorded Payers Encounter Date Sequence Insurance Name Policy Number Policy Rios Covered Member ID Rios Member ID Guarantor Name 10/01/2022 1 [place] PRIOR [place] 2022 - [facility] (MEDICAID) Dominique Galvan Suzy [id number] Dominique Almonte 11/05/2022 1 [place]IOR [place] 2022 - [facility] (MEDICAID) Dominique Galvan Suzy [id number] Dominique Almonte Notes Date Note Type Note [...] [facility] [address] [place], [address], [place] - [facility] 10/01/2022 17:47:49 OBGyn Episode No OBEpisode recorded.
--- OUTSIDE RECORDS SUMMARY | 2024-12-17 19:22 | XMS_ITS | Clinical Summary ---
Author Organization [facility] ity Address [address] [place] [address] Care Team Providers Care Enterprise Project Manager Name Role Phone Lilliana Mosqueda MD Primary [...] age to complete this topic Care Teams Enterprise Project Manager Relationship Specialty Start Date End Date Lilliana Mosqueda MD [address] [place] [address] PCP - General Family Medicine 05/31/19
== END 2024-12-17 19:21 | disposition home or self-care (01) ==
LOC: HO.MRI 19:20
DX: S09.90XA Unspecified injury of head, initial encounter (principal)
CPT/HCPCS: 70551

== ENCOUNTER → 2024-12-17 19:24 | Outpatient (BNV) | payer OTHER, SELFPAY | PROVIDERS: Visit Provider Student in an Organized Health Care Education/Training Program | DX: G43.009 Migraine without aura, not intractable, without status migrainosus (principal); S09.90XA Unspecified injury of head, initial encounter | CPT/HCPCS: 70551 ==

== ENCOUNTER → 2024-12-21 14:55 | Outpatient (REF) | payer OTHER, SELFPAY ==
--- NOTE | 2024-12-21 14:57 | CA_ITS ---
Transthoracic Echocardiogram Patient (Last, First, Middle): Dominique Almonte, Gender: Female Date of : 1975 Age: 49 Procedure Date: 12/21/2024 Procedure Type: Transthoracic Echocardiogram Location: OP Height: 165.1 cm Weight: 87.09 kg BSA: 1.94 m2 Heart Rate: 103 bpm BP: 110 / 62 mmHg Loading Manager: SB Referring MD: Dali Nugent PA-C Symptoms: R94.31 - Abnormal electrocardiogram [ECG] [EKG] Study Quality: Fair/IV attempted ECG Rhythm: Tachycardia Conclusions: - The left ventricular systolic function is mildly decreased. The visually estimated ejection fraction is between 45-50%. - No obvious valvular pathology seen on this study. Findings Procedure Information The quality of the study was technically difficult. The study quality is limited by lung artifact. Left Ventricle Normal left ventricular cavity size. The left ventricular systolic function is mildly decreased. The visually estimated ejection fraction is between 45 50%. There is mild global hypokinesis. Diastolic function is normal for age. There is mild septal asymmetric hypertrophy. Right Ventricle Normal right ventricular cavity size. There is mildly decreased right ventricular systolic function. Atria Both atria are normal in size. Aortic Valve There is a normal trileaflet aortic valve. There is no aortic valve stenosis. There is no aortic valve regurgitation. Mitral Valve The mitral valve appears normal. There is no mitral valve regurgitation. There is no mitral valve stenosis. Pulmonic Valve The pulmonic valve is likely normal. Tricuspid Valve There is trace tricuspid valve regurgitation. Tricuspid regurgitation envelope is inadequate for calculation of right ventricular systolic pressure. Great Vessels The asc aorta is normal in size. Venous The inferior vena cava is normal in size and collapses greater than 50% with inspiration. Pericardium/Pleural There is no evidence of pericardial effusion. Prior Study Comparison No prior study available for comparison. Recommendations, Care & Conclusions No obvious valvular pathology seen on this study. Measurements 2D Linear Measurements IVSd: 1.10 0.6-0.9/0.6-1.0 cm LVIDd: 4.33 3.9-5.3/4.2-5.9 cm LVIDd Index: 2.23 2.4-3.2/2.2-3.1 cm/m2 LVIDs: 2.93 2.0-3.6 cm LVPWd: 0.75 0.7-1.1 cm LA Diam: 2.70 2.7-3.8/3.0-4.0 cm LAIDs Index: 1.39 1.5-2.3 cm/m2 LV Mass: 161.04 67-162/88-224 g LV Mass Index: 83.01 43-95/49-115 g/m2 LVOT Diam: 2.10 3.0+(-)1.3 cm 2D Systolic Function EF 2C: 51.70 >55% Mitral Valve MV Pk E: 0.49 MV PK A: 0.65 MV Decel Time: 151.00 E/A: 0.80 E'Lateral: 7.51 E'Medial: 5.11 E/E' Med: 9.50 E/E' Lat: 6.50 PHT: 44.00 MVA PHT: 5.00 Decel Rawlins: 3.24 Aortic Valve AoV Pk Chris: 1.04 AoV Pk Grad: 4.00 TI: 3.70 LVOT LVOT Pk Chris: 1.10 LVOT Mn Chris: 0.76 LVOT VTI: 0.17 LVOT Pk Grad: 5.00 LVOT Mn Grad: 3.00 LVOT Diam: 2.10 LVOT Area: 3.46 Diastolic Function MV Pk E: 0.49 MV Pk A: 0.65 E/A: 0.80 E'Medial: 5.11 E/E' Med: 9.50 E' Laterial: 7.51 E/E' Lat: 6.50 Right Ventricle TAPSE (mm): 15.60 TVS' Chris: 7.80 Tricuspid Valve RA Press: 3.00 Great Vessels Aorta Sinus of Valsalva: 3.10 2.0-3.5 cm Ao Asc: 2.70 2.1-3.4 cm Pulmonary Veins Pulm Vein S/D 1.40 Pulmonary Valve PV Pk Chris: 0.77 Peak PV Grad: 2.00 Updated in Other Vendor System with Status of Final Yoel Aguirre MD electronically signed on 12/22/2024 4:16:17 PM with status of Final
--- OUTSIDE RECORDS SUMMARY | 2024-12-21 17:38 | XMS_ITS | Data Portability ---
Author Organization [facility], [address] Address [address] [place] [address] Assessment No assessment recorded. Plan of Treatment Reminders Order Date Submit Date Provider Last Modified By Organization Details Last Modified Time Details Appointments None recorded. Lab None recorded. Referral emergency medicine referral - Significant left hip pain - cannot ambulate - history of fracture as a child. Coming by EMS. 2022 023 [email or web address] 26 [facility] [address] [place] [address], [address], 3 07:26:15 Procedures None recorded. Surgeries None [...] pain tracking down the femur. 2022 023 [facility], [address] [facility], [place], [address], 3 19:26:28 Medication Orders None recorded. Patient TargetsNo targets recorded. Patient Instructions Encounter Date Encounter Id Patient Instructions Last Modified By Organization Details Last Modified Time 10/01/2022 [id number] Based on your ex am and presentation [...] why my recommendation is the Emergency Room. [email or web address] Not available 10/01/2022 17:11:48 Reason for Referral [...] unila teral No observ ation record ed. [email or web address] [facility] [address] [place], [address], 10/01/2022 20:31:21 Result Notes None recorded. Problems Name Problem SNOMED Code Status Onset Date Resolution Date Notes Provider Name and Address Organization Details Recorded Time Attention deficit hyperactivity disorder 437077351 Active 2022 Leonora holley, PA - [facility] 3 15:54:19 Bipolar disorder 93284285 Active 2022 Leonora holley, [facility] - [facility] [...] 10/01/2022 XR, hip + pelvis, unilateral completed [email or web address] [facility] [address] [place], [address], 10/01/2022 20:31:21 Procedure Notes None recorded. Medical Equipment None Reported. Allergies Allergen ID Allergen Name Allergen Category Reaction Reaction Severity Criticality Documentation Date Start Date Code Code System Note Provider Name and Address Organization Details Recorded Time 793936 Tylenol medicatio n Not available Not available Not available 10/01/2022 69675 3 RxNorm Leonora Hu null, PA - [facility] 3 15:51:44 648370 ibuprofen medicatio n Not available Not available Not available 10/01/2022 5640 RxNorm Leonora Hu null, PA - [facility] 3 15:52:00 983149 Latuda medicatio n Not available Not available Not available 10/01/2022 15770 32 RxNorm Leonora Hu null, PA - [facility] 3 15:52:05 916182 aspirin medicatio n Not available Not available [...] Updated DateTime 11/05/2022 165.1 cm CALOS CASTILLO [facility] [place], [address], PA - [facility] 12/01/2022 20:03:21 Date [...] /min 97.7 [degF] 165.1 cm 25.8 kg/m2 76934.8 2 g 109 mm[Hg] 76 mm[Hg] Leonora [...] SNOMED-CT Code Diagnosis ICD10 Code Diagnosis Note [id number] [facility] CASTILLO [address] [address] 10/01/2022 14:29:12 10/01/2022 17:16:29 Pain of left hip joint 9153850490 81990 M25.552 S/P fall out of bed x 1 week ago. [id number] [facility] [address] [place] [address] 11/05/2022 08:18:11 12/01/2022 20:03:56 Left without being seen [id number] 9102 Z53.21 Health Concerns Section Related Observation LastModified by Organization Detai ls LastModified Time None Recorded Concern Status LastModified by Organization Details LastModified Time None Recorded Advance Directives Directive None Recorded Payers Encounter Date Sequence Insurance Name Policy Number Policy Rios Covered Member ID Rios Member ID Guarantor Name 10/01/2022 1 [place] 2022 - [facility] (MEDICAID) Dominique Galvan Suzy [id number] Dominique Almonte 11/05/2022 1 [place] 2022 - [facility] (MEDICAID) Dominique Galvan Suzy [id number] Dominique Almonte Notes Date Note Type Note [...] CALOS CASTILLO [address] [place], [address], PA - [facility] 10/01/2022 17:47:49 OBGyn Episode No OBEpisode recorded.
--- OUTSIDE RECORDS SUMMARY | 2024-12-21 17:38 | XMS_ITS | Clinical Summary ---
Author Organization [facility] ity Address [address] [place] [address] Care Team Providers Care Award Machine Operator Name Role Phone Lilliana Mosqueda MD Primary [...] age to complete this topic Care Teams Award Machine Operator Relationship Specialty Start Date End Date Lilliana Mosqueda MD [address] [place] [address] PCP - General Family Medicine 05/31/19
--- OUTSIDE RECORDS SUMMARY | 2024-12-21 17:38 | XMS_ITS | Clinical Summary ---
Author Organization [facility] Address [address] [place] [address] Care Team Providers Care Farm Facility Manager Name Role Phone David Graves MD Primary Care Provider +1- [phone] Allergies Active Allergy Reactions Criticality Noted Date [...] EDT Ancillary Procedure [facility] Radiology [address] [place] [address] Provider, File Room 11/22/2024 5:05 AM EDT Ancillary Procedure [facility] Radiology [address] [facility] [place] [address] Provider, File Room 11/22/2024 1:52 AM EDT - 11/22/2024 2:31 PM EDT Hospital Encounter [facility] Emergency Department [address] [place] [address] Virginie Reis MD Sherif, Mohamed, MD Singh, Gagan, MD Narrowing of airway (Primary Dx); Neck pain; Syncope and collapse; Airway obstruction; Prolonged QT interval; Left against medical advice Discharge Disposition: Left Against Medical Advice/ AMA 11/22/2024 Travel 11/21/2024 Orders Only [facility] Radiology [address] [facility] [place] [address] Provider, File Room 11/21/2024 Orders Only [facility] Radiology [address] [place] [address] Provider, File Room from Last 3 Months [...] resultswithin the time period is included. Pathologist [facility] Ventricular rate 81 BPM EKG [facility] Atrial rate 81 BPM EKG [facility] P-R interval 156 ms EKG [facility] QRS duration 88 ms EKG [facility] Q-T interval 438 ms EKG [facility] QTC calculation (Bazett) 509 ms EKG [facility] P axis 73 degrees EKG [facility] R axis 38 degrees EKG [facility] T axis 60 degrees [facility] 11/22/2024 2:08 PM EDT Narrative [facility] - 11/22/2024 7:12 PM EDT Normal sinus [...] ECG ORDERABLES Final Result Performing Organization Address [facility] de Phone Number [facility] * CT Head Archive for Reference Only (11/22/2024 5:04 AM EDT) Only the most recent of2 resultswithin the time period is included. Jo ALDRICH - 11/22/2024 5:04 AM EDT This study has been auto finalized and does not contain a result. us File Room Provider IMG DIGITIZE FILMS Final Resu lt Performing Organization Address [facility] Co de Phone Number VALDEMAR [phone] * CT Reconstructed Data Without IV Contrast [...] root impingement. Interpreted by: ??Venkatesh Mendoza DO Plaster Maker I personally reviewed the images and the [...] criteria. The data was processed at the lead technologist in cytogenetics workstation for generation of MIP images. Three-dimensional [...] criteria. The data was processed at the lead technologist in cytogenetics workstation for generation of MIP images. Three-dimensional [...] root impingement. Interpreted by: Venkatesh Mendoza DO Plaster Maker I personally reviewed the images and the resident's preliminary report and AGREE with the report as it is now presented (RADPAL1). Virginie Reis MD [facility] CT ORDERABLES Final Result * CTA Head [...] root impingement. Interpreted by: ??Venkatesh Mendoza DO Plaster Maker I personally reviewed the images and the [...] criteria. The data was processed at the lead technologist in cytogenetics workstation for generation of MIP images. Three-dimensional [...] criteria. The data was processed at the lead technologist in cytogenetics workstation for generation of MIP images. Three-dimensional [...] root impingement. Interpreted by: Venkatesh Mendoza DO Plaster Maker I personally reviewed the images and the [...] ORDERABLES Final Resul t Performing Organization Address [facility] Co de Phone Number [address] [address], [address] [address] * proBNP, N-terminal (11/22/2024 2:47 AM EDT) proBNP, N-terminal 94 <125 pg/mL 11/22/2024 11:41 AM EDT [facility] 11/22/2024 2:47 AM EDT 11/22/2024 3:26 AM EDT us Virginie Reis MD LAB BLOOD ORDERABLES Final Resul t Performing Organization Address City/[facility] Co de Phone Number [address] [place] [address], [address] [address] * (ABNORMAL) Complete Blood Count, with Differential (11/22/2024 2:47 AM EDT) White Blood Cell Count 7.7 4.0 - 11.0 Thou/uL 11/22/2024 3:[address] [facility] Platelet Count 309 150 - 450 Thou/uL 11/22/2024 3:40 AM [facility] Hemoglobin 15.8(H) 11.7 - 15.7 g/dL 11/22/2024 3:40 AM [facility] Hematocrit 46.5 35.0 - 47.0 % 11/22/2024 3:40 AM [facility] Red Blood Cell Count 5.47(H) 4.00 - 5.40 Mil/uL 11/22/2024 3:40 AM [facility] MCV 85 80 - 100 fL 11/22/2024 3:40 AM [facility] MCH 28.9 26.0 - 34.0 pg 11/22/2024 3:40 AM [facility] MCHC 34.0 30.0 - 36.0 g/dL 11/22/2024 3:40 AM [facility] RDW 12.5 11.5 - 14.5 % 11/22/2024 3:40 AM [facility] MPV 11.0 7.5 - 12.5 fL 11/22/2024 3:40 AM [facility] Neutrophils Auto 83.5 % 11/23/19 3:40 AM [facility] Immature Granulocytes 0.7 % 11/22/2024 3:40 AM [facility] Lymphocytes Auto 13.4 % 11/23/19 3:40 AM [facility] Monocytes Auto 2.3 % 11/22/2024 3:40 AM [facility] Eosinophils Auto 0.0 % 11/23/19 3:40 AM [facility] Basophils Auto 0.1 % 11/22/2024 3:40 AM [facility] Abs Neutrophils Auto 6.39 2.00 - 7.50 Thou/uL 11/22/2024 3:40 AM [facility] Abs Immature Granulocytes 0.05 0.00 - 0.10 Thou/uL 11/22/2024 3:40 AM EDT [facility] Abs Lymphocytes Auto 1.03(L) 1.50 - 4.50 [...] ORDERABLES Final Resul t Performing Organization Address City/[facility]/[place] [address], [place] [address] * (ABNORMAL) Magnesium (11/22/2024 2:47 AM EDT) Magnesium 3.0(H) 1.6 - 2.7 mg/dL 11/22/2024 4:00 AM EDT [facility] Blood Blood specimen / Unknown 11/22/2024 2:47 AM EDT 11/22/2024 3:26 AM EDT us Virginie Reis MD LAB BLOOD [place] [address], [place] [address] * (ABNORMAL) Comprehensive Metabolic Panel (11/22/2024 2:47 AM EDT) Glucose 175(H) 65 - 99 mg/dL 11/22/2024 4:00 AM [facility] Comment:Fasting: <100 mg/dL, Non-Fasting: <200 mg/dL (ADA 2004) Blood Urea Nitrogen (BUN) 15 8 - 21 mg/dL 11/22/2024 4:00 AM [facility] Creatinine 0.5 0.4 - 1.1 mg/dL 11/22/2024 4:00 AM [facility] eGFR >90 >59 11/22/2024 4:00 AM [facility] Comment:CKD-EPI (2020) in mL /min/1.73 sq meters. Sodium 134(L) 136 - 145 mmol/L 11/22/2024 4:00 AM [facility] Potassium 3.5 3.4 - 5.3 mmol/L 11/22/2024 4:00 AM [facility] Chloride 91(L) 98 - 107 mmol/L 11/22/2024 4:00 AM [facility] CO2 28 22 - 33 mmol/L 11/22/2024 4:00 AM [facility] Calcium 10.0 8.7 - 10.5 mg/dL 11/22/2024 4:00 AM [facility] Alkaline Phosphatase 73 32 - 122 U/L 11/22/2024 4:00 AM [facility] Aspartate Aminotrans (AST) 87(H) 10 - 50 U/L 11/22/2024 4:00 AM [facility] Alanine Aminotrans (ALT) 95(H) 10 - 50 U/L 11/22/2024 4:00 AM [facility] Bilirubin, Total 0.4 0.2 - 1.0 mg/dL 11/22/2024 4:00 AM [facility] Protein, Total 7.3 6.3 - 8.3 g/dL 11/22/2024 4:00 AM [facility] Albumin 4.3 3.5 - 5.0 g/dL 11/22/2024 4:00 AM [facility] BUN/Creatinine Ratio 30(H) 10.0 - 25.0 Ratio 11/22/2024 4:00 AM [facility] Globulin 3.0 1.5 - 3.9 g/dL 11/22/2024 4:00 AM [facility] Albumin/Globulin Ratio 1.4 1.0 - 3.0 Ratio 11/22/2024 4:00 AM EDT [facility] Anion Gap 15 7 - 17 11/22/2024 4:00 AM EDT [facility] Blood Blood specimen / Unknown 11/22/2024 2:47 AM EDT 11/22/2024 3:26 AM EDT Virginie Reis MD LAB BLOOD ORDERABLES Final Resul t Performing Organization Address City/[facility]/ZIP Co de Phone Number [address] [address], [address] [address] * (ABNORMAL) POCT Glucose, Fingerstick (11/22/2024 2:08 AM EDT) POC Glucose 180(H) 65 - 99 mg/dL 11/22/2024 2:09 AM EDT Blood specimen / Unknown 11/22/2024 2:08 AM EDT 11/22/2024 2:09 AM EDT us Virginie Reis MD POINT OF CARE TEST ORDERABLES Fi nal Result Performing Organization Address City/[facility] Co de Phone Number HOSPITAL LAB See Below from Last 3 Months Insurance [facility] Advance Directives * Full Code (Latest Code Status on File) Date Activated Date Inactivated Comments 11/22/2024 11:07 AM Care Teams Farm Facility Manager Relationship Specialty Start Date End Date David Graves MD [address] [place] [address] Dr [place], [place] [address] PCP - General Internal Medicine 11/22/24
== END ==
LOC: HO.CARD 14:55
DX: R94.31 Abnormal electrocardiogram [ECG] [EKG] (principal)
CPT/HCPCS: 93306

== ENCOUNTER → 2024-12-21 14:57 | Outpatient (BNV) | payer OTHER, SELFPAY | PROVIDERS: Visit Provider Internal Medicine | DX: I36.1 Nonrheumatic tricuspid (valve) insufficiency (principal) | CPT/HCPCS: 93306 ==

== ENCOUNTER 2024-12-25 09:04 | Outpatient (REF) | payer OTHER, SELFPAY ==
--- NOTE | ~2024-12-25 | US_ITS ---
CLINICAL HISTORY: R79.89 - Other specified abnormal findings of blood chemistry US abdomen complete Comparison: None Findings: The visualized pancreas is normal. The aorta and inferior vena cava are normal caliber. The liver measures 16.7 cm in length and demonstrates increased echogenicity. There is no intrahepatic bile duct dilatation. The common duct is 4 mm in diameter. The gallbladder is normal. There is no sonographic Bloom sign. The main portal vein is antegrade. The right kidney is 10.1 cm in length. The left kidney is 11.2 cm in length. Unremarkable kidneys. No hydronephrosis. The spleen is normal and measures 11.5 cm in length No ascites. IMPRESSION: Hepatic steatosis This document has been electronically signed by: Rasheeda Aviles MD on 12/25/2024 11:02:19
--- OUTSIDE RECORDS SUMMARY | 2024-12-25 09:53 | XMS_ITS | Clinical Summary ---
Author Organization [facility] Address [address] [place] [address] Care Team Providers Care Technology Administrator Name Role Phone David Graves MD Primary Care Provider +1- [phone] Allergies Active Allergy Reactions Criticality Noted Date [...] Description 11/22/2024 5:10 AM EDT Ancillary Procedure [facility] Radiology [address] [place] [address] Provider, File Room 11/22/2024 5:05 AM EDT Ancillary Procedure [facility] Radiology [address] [facility] [place] [address] Provider, File Room 11/22/2024 1:52 AM EDT - 11/22/2024 2:31 PM EDT Hospital Encounter [facility] Emergency Department [address] [place] [address] Virginie Reis MD Sherif, Mohamed, MD Singh, Gagan, MD Narrowing of airway (Primary Dx); Neck pain; Syncope and collapse; Airway obstruction; Prolonged QT interval; Left against medical advice Discharge Disposition: Left Against Medical Advice/ AMA 11/22/2024 Travel 11/21/2024 Orders Only [facility] Radiology [address] [place] [address] Provider, File Room 11/21/2024 Orders Only [facility] Radiology [address] [place] [address] Provider, File Room from Last 3 Months [...] is included. Ventricular rate [address] [facility] Atrial rate 81 BPM EKG [facility] P-R interval 156 ms EKG [facility] QRS duration 88 ms EKG [facility] Q-T interval 438 ms EKG [facility] QTC calculation (Bazett) [address] [facility] P axis 73 degrees EKG [facility] R axis 38 degrees EKG [facility] T axis 60 degrees EKG [facility] 11/22/2024 2:08 PM EDT Narrative [facility] - 11/22/2024 7:12 PM EDT Normal sinus [...] ECG ORDERABLES Final Result Performing Organization Address [facility] de Phone Number [facility] * CT Head Archive for Reference Only (11/22/2024 5:04 AM EDT) Only the most recent of2 resultswithin the time period is included. Jo ALDRICH - 11/22/2024 5:04 AM EDT This study has been auto finalized and does not contain a result. us File Room Provider IMG DIGITIZE FILMS Final Resu lt Performing Organization Address [facility] Co de Phone Number VALDEMAR [phone] * CT Reconstructed Data Without IV Contrast [...] root impingement. Interpreted by: ??Venkatesh Mendoza DO Lead Press Operator I personally reviewed the images and [...] criteria. The data was processed at the development technologist workstation for generation of MIP images. [...] criteria. The data was processed at the development technologist workstation for generation of MIP images. [...] root impingement. Interpreted by: Venkatesh Mendoza DO Lead Press Operator I personally reviewed the images and the resident's preliminary report and AGREE with the report as it is now presented (RADPAL1). Virginie Reis MD IM CT ORDERABLES Final Result * CTA Head [...] root impingement. Interpreted by: ??Venkatesh Mendoza DO Lead Press Operator I personally reviewed the images and [...] criteria. The data was processed at the development technologist workstation for generation of MIP images. [...] criteria. The data was processed at the development technologist workstation for generation of MIP images. [...] root impingement. Interpreted by: Venkatesh Mendoza DO Lead Press Operator I personally reviewed the images and the resident's preliminary report and AGREE with the report as it is now presented (RADPAL1). us Virginie Reis MD IMG CT ORDERABLES Final Result * High Sensitivity Troponin T (11/22/2024 2:47 AM EDT) High Sensitivity Troponin T 14 <15 ng/L 11/22/2024 11:[address] [facility] Delta (Change) NO PREVIOUS RESULT <3 11/22/2024 11:[address] [facility] 11/22/2024 2:47 AM EDT 11/22/2024 3:26 AM EDT us Virginie Reis MD LAB BLOOD ORDERABLES Final Resul t Performing Organization Address [facility] Co de Phone Number [address] [address], [address] [address] * proBNP, N-terminal (11/22/2024 2:47 AM EDT) proBNP, N-terminal 94 <125 pg/mL 11/22/2024 11:[address] [facility] 11/22/2024 2:47 AM EDT 11/22/2024 3:26 AM EDT us Virginie Reis MD LAB BLOOD ORDERABLES Final Resul t Performing Organization Address [facility] [place] [address], [facility] [address] [place] [address] * (ABNORMAL) Complete Blood Count, with Differential (11/22/2024 2:47 AM EDT) [facility] White Blood Cell Count 7.7 4.0 - 11.0 Thou/uL 11/22/2024 3:40 AM [facility] Platelet Count 309 150 - 450 Thou/uL 11/22/2024 3:40 AM [facility] Hemoglobin 15.8(H) 11.7 - 15.7 g/dL 11/22/2024 3:40 AM [facility] Hematocrit 46.5 35.0 - 47.0 % 11/22/2024 3:40 AM [facility] Red Blood Cell Count 5.47(H) 4.00 - 5.40 Mil/uL 11/22/2024 3:40 AM [facility] MCV 85 80 - 100 fL 11/22/2024 3:40 AM [facility] MCH 28.9 26.0 - 34.0 pg 11/22/2024 3:40 AM [facility] MCHC 34.0 30.0 - 36.0 g/dL 11/22/2024 3:40 AM [facility] RDW 12.5 11.5 - 14.5 % 11/22/2024 3:40 AM [facility] MPV 11.0 7.5 - 12.5 fL 11/22/2024 3:40 AM [facility] Neutrophils Auto 83.5 % 11/23/19 3:40 AM [facility] Immature Granulocytes 0.7 % 11/22/2024 3:40 AM [facility] Lymphocytes Auto 13.4 % 11/23/19 3:40 AM [facility] Monocytes Auto 2.3 % 11/22/2024 3:40 AM [facility] Eosinophils Auto 0.0 % 11/23/19 3:40 AM [facility] Basophils Auto 0.1 % 11/22/2024 3:40 AM [facility] Abs Neutrophils Auto 6.39 2.00 - 7.50 Thou/uL 11/22/2024 3:40 AM [facility] Abs Immature Granulocytes 0.05 0.00 - 0.10 Thou/uL 11/22/2024 3:[address] [facility] Abs Lymphocytes Auto 1.03(L) 1.50 - 4.50 Thou/uL 11/22/2024 3:[address] [facility] Abs Monocytes Auto 0.18(L) 0.20 - 1.50 Thou/uL 11/22/2024 3:[address] [facility] Abs Eosinophils Auto 0.00 0.00 - 0.70 Thou/uL 11/22/2024 3:[address] [facility] Abs Basophils Auto 0.01 0.00 - 0.20 Thou/uL 11/22/2024 3:[address] [facility] Blood Blood specimen / Unknown 11/22/2024 2:47 AM EDT 11/22/2024 3:26 AM EDT us Virginie Reis MD LAB BLOOD [place] [address], [place] [address] * (ABNORMAL) Magnesium (11/22/2024 2:47 AM EDT) Magnesium 3.0(H) 1.6 - 2.7 mg/dL 11/22/2024 4:[address] [facility] Blood Blood specimen / Unknown 11/22/2024 2:47 AM EDT 11/22/2024 3:26 AM EDT us Virginie Reis MD LAB BLOOD [place] [address], [place] [address] * (ABNORMAL) Comprehensive Metabolic Panel (11/22/2024 2:47 AM EDT) Glucose 175(H) 65 - 99 mg/dL 11/22/2024 4:00 AM [facility] Comment:Fasting: <100 mg/dL, Non-Fasting: <200 mg/dL (ADA 2004) Blood Urea Nitrogen (BUN) 15 8 - 21 mg/dL 11/22/2024 4:00 AM [facility] Creatinine 0.5 0.4 - 1.1 mg/dL 11/22/2024 4:00 AM [facility] eGFR >90 >59 11/22/2024 4:00 AM [facility] Comment:CKD-EPI (2020) in mL /min/1.73 sq meters. Sodium 134(L) 136 - 145 mmol/L 11/22/2024 4:00 AM [facility] Potassium 3.5 3.4 - 5.3 mmol/L 11/22/2024 4:00 AM [facility] Chloride 91(L) 98 - 107 mmol/L 11/22/2024 4:00 AM [facility] CO2 28 22 - 33 mmol/L 11/22/2024 4:00 AM [facility] Calcium 10.0 8.7 - 10.5 mg/dL 11/22/2024 4:00 AM [facility] Alkaline Phosphatase 73 32 - 122 U/L 11/22/2024 4:00 AM [facility] Aspartate Aminotrans (AST) 87(H) 10 - 50 U/L 11/22/2024 4:00 AM [facility] Alanine Aminotrans (ALT) 95(H) 10 - 50 U/L 11/22/2024 4:00 AM [facility] Bilirubin, Total 0.4 0.2 - 1.0 mg/dL 11/22/2024 4:00 AM [facility] Protein, Total 7.3 6.3 - 8.3 g/dL 11/22/2024 4:00 AM [facility] Albumin 4.3 3.5 - 5.0 g/dL 11/22/2024 4:00 AM [facility] BUN/Creatinine Ratio 30(H) 10.0 - 25.0 Ratio 11/22/2024 4:00 AM [facility] Globulin 3.0 1.5 - 3.9 g/dL 11/22/2024 4:00 AM [facility] Albumin/Globulin Ratio 1.4 1.0 - 3.0 Ratio 11/22/2024 4:[address] [facility] Anion Gap 15 7 - 17 11/22/2024 4:[address] [facility] Blood Blood specimen / Unknown 11/22/2024 2:47 AM EDT 11/22/2024 3:26 AM EDT us Virginie Reis MD LAB BLOOD ORDERABLES Final Resul t [address] [address], [address] [address] * (ABNORMAL) POCT Glucose, Fingerstick (11/22/2024 2:08 AM EDT) POC Glucose 180(H) 65 - 99 mg/dL 11/22/2024 2:09 AM EDT Blood specimen / Unknown 11/22/2024 2:08 AM EDT 11/22/2024 2:09 AM EDT Virginie Reis MD POINT OF CARE TEST ORDERABLES Fi nal Result Performing Organization Address City/State/[facility] Co de Phone Number HOSPITAL LAB See Below from Last 3 Months Insurance [facility] Advance Directives * Full Code (Latest Code Status on File) Date Activated Date Inactivated Comments 11/22/2024 11:07 AM Care Teams Technology Administrator Relationship Specialty Start Date End Date David Graves MD [address] [facility] [address], [place] [address] PCP - General Internal Medicine 11/22/24
--- OUTSIDE RECORDS SUMMARY | 2024-12-25 09:53 | XMS_ITS | Data Portability ---
Author Organization [facility], [address] Address [address] [place] [address] Assessment No assessment recorded. Plan of Treatment Reminders Order Date Submit Date Provider Last Modified By Organization Details Last Modified Time Details Appointments None recorded. Lab None recorded. Referral emergency medicine referral - Significant left hip pain - cannot ambulate - history of fracture as a child. Coming by EMS. 2022 023 [email or web address] 26 [facility] ([facility]), [address] [place] [address], [address], 3 07:26:15 Procedures None recorded. Surgeries None [...] pain tracking down the femur. 2022 023 [facility], [address] [facility] [place], [address], 3 19:26:28 Medication Orders None recorded. Patient TargetsNo targets recorded. Patient Instructions Encounter Date Encounter Id Patient Instructions Last Modified By Organization Details Last Modified Time 10/01/2022 [id number] Based on your ex am and presentation [...] why my recommendation is the Emergency Room. [email or web address] Not available 10/01/2022 17:11:48 Reason for Referral [...] unila teral No observ ation record ed. [email or web address] [facility] [address] [place], [address], 10/01/2022 20:31:21 Result Notes None recorded. Problems Name Problem SNOMED Code Status Onset Date Resolution Date Notes Provider Name and Address Organization Details Recorded Time Attention deficit hyperactivity disorder 828823005 Active 2022 Leonora holley, PA - [facility] 3 15:54:19 Bipolar disorder 04539931 Active 2022 [facility]ley, [facility] - [facility] [...] 10/01/2022 XR, hip + pelvis, unilateral completed [email or web address] [facility] [address] [place], [address], 10/01/2022 20:31:21 Procedure Notes None recorded. Medical Equipment None Reported. Allergies Allergen ID Allergen Name Allergen Category Reaction Reaction Severity Criticality Documentation Date Start Date Code Code System Note Provider Name and Address Organization Details Recorded Time 033859 Tylenol medicatio n Not available Not available Not available 10/01/2022 54890 3 RxNorm Leonora Hu null, PA - [facility] 3 15:51:44 856377 ibuprofen medicatio n Not available Not available Not available 10/01/2022 5640 RxNorm Leonora Hu null, PA - [facility] 3 15:52:00 586166 Latuda medicatio n Not available Not available Not available 10/01/2022 59264 32 RxNorm Leonora Hu null, PA - [facility] 3 15:52:05 859685 aspirin medicatio n Not available Not available [...] 11/05/2022 165.1 cm CALOS CASTILLO [facility] [place], [address], PA - [facility] 12/01/2022 20:03:21 Date [...] /min 97.7 [degF] 165.1 cm 25.8 kg/m2 83661.8 2 g 109 mm[Hg] 76 mm[Hg] Leonora [...] SNOMED-CT Code Diagnosis ICD10 Code Diagnosis Note [id number] [facility]ST[facility]O [address] [address] 10/01/2022 14:29:12 10/01/2022 17:16:29 Pain of left hip joint [id number] 50998 M25.552 S/P fall out of bed x 1 week ago. [id number] [facility] [address] [place] [address] 11/05/2022 08:18:11 12/01/2022 20:03:56 Left without being seen [id number] 9102 Z53.21 Health Concerns Section Related Observation LastModified by Organization Detai ls LastModified Time None Recorded Concern Status LastModified by Organization Details LastModified Time None Recorded Advance Directives Directive None Recorded Payers Encounter Date Sequence Insurance Name Policy Number Policy Rios Covered Member ID Rios Member ID Guarantor Name 10/01/2022 1 [place] PRIOR [place] 2022 - [facility] (MEDICAID) Dominiuqe Galvan Suzy [id number] Dominique Almonte 11/05/2022 1 [place] PRIOR [place] 2022 - [facility] (MEDICAID) Dominique Galvan Suzy [id number] Dominique Almonte Notes Date Note Type Note [...] CALOS CASTILLO [address] [place], [address], [place] - [facility] 10/01/2022 17:47:49 OBGyn Episode No OBEpisode recorded.
--- OUTSIDE RECORDS SUMMARY | 2024-12-25 09:53 | XMS_ITS | Clinical Summary ---
Author Organization [facility] ity Address [address] [place] [address] Care Team Providers Care Tacking Machine Operator Name Role Phone Lilliana Mosqueda MD Primary Care Provider [phone] Social History Tobacco Use Types Packs/Day Years [...] age to complete this topic Care Teams Tacking Machine Operator Relationship Specialty Start Date End Date Lilliana Mosqueda MD [address] [place] [phone] PCP - General Family Medicine 05/31/19
== END 2024-12-25 09:05 | disposition home or self-care (01) ==
LOC: HO.HMGCX 09:04
DX: R79.89 Other specified abnormal findings of blood chemistry (principal)
CPT/HCPCS: 76700

== ENCOUNTER → 2024-12-25 09:07 | Outpatient (BNV) | payer OTHER, SELFPAY | PROVIDERS: Visit Provider Radiology Diagnostic Radiology | DX: R79.89 Other specified abnormal findings of blood chemistry (principal) | CPT/HCPCS: 76700 ==

== ENCOUNTER 2025-01-02 13:18 | Emergency (ER) | payer OTHER, SELFPAY ==
[2025-01-02 13:54] VITALS: BP 115/88; PULSE 76; RESP 18; TEMP 36.6; O2SAT 95; BMI 31.6
--- NOTE | 2025-01-02 14:24 | ED.GENADULT ---
HPI - General Adult General Chief complaint: Abdominal Pain Stated complaint: Vomiting blood History of Present Illness HPI narrative: Patient left before completion of treatment by ED provider. Related Data Home Medications ?Medication ?Instructions ?Recorded ?Confirmed aripiprazole 10 mg tablet 10 mg PO DAILY 09/01/24 12/12/24 clonazepam 1 mg tablet 1 mg PO BID PRN 09/01/24 12/12/24 dextroamphetamine-amphetamine 15 1 tab PO BID 09/01/24 12/12/24 mg tablet venlafaxine 75 mg capsule,extended 75 mg PO QAM 09/01/24 12/12/24 release 24 hr Previous Rx's ?Medication ?Instructions ?Recorded esomeprazole magnesium 40 mg 40 mg PO DAILY #30 caps 09/01/24 capsule,delayed release (Nexium) linaclotide 145 mcg capsule 145 mcg PO DAILY #30 caps 09/01/24 (Linzess) cholecalciferol (vitamin D3) 125 125 mcg PO DAILY #90 caps 09/22/24 mcg (5,000 unit) capsule cyclobenzaprine 5 mg tablet 5 mg PO BEDTIME #30 tabs 12/12/24 Allergies Allergy/AdvReac Type Severity Reaction Status Date / Time Penicillins Allergy Severe Anaphylaxis Verified 01/02/25 13:55 acetaminophen [From Tylenol] Allergy Intermediate Hives Verified 01/02/25 13:55 aspirin [ASPIRIN] Allergy Intermediate UNKNOWN Verified 01/02/25 13:55 gabapentin Allergy Intermediate Hives Verified 01/02/25 13:55 varenicline [From CHANTIX] Allergy Intermediate HIVES Verified 01/02/25 13:55 ibuprofen Allergy Anaphylaxis Verified 01/02/25 13:55 lurasidone [From Latuda] Allergy Unknown Verified 01/02/25 13:55 Bees Allergy Intermediate Anaphylaxis Uncoded 01/02/25 13:55 cefuroxime Allergy Mild Itching Uncoded 01/02/25 13:55 PMFSH Past Medical History Medical History (Updated 01/04/25 @ 00:13 by CAL[facility] Schmidt) Vomiting Tongue swelling Trichomonas infection Cervical cancer Badillo's esophagus Encounter for screening colonoscopy (~2019) Hiatal hernia Depression Anxiety Surgical History H/O endoscopy (~2019) S/P tonsillectomy H/O: hysterectomy (~1999) Family History Family History Other Adopted Social History Social History Household Members: Significant Other Housing: Apartment Alcohol intake: never Patient Tobacco Use Status: Former Tobacco user Tobacco use type: Cigarette Cigarette Packs Per Day: 0.5 Cigarettes Per Day: 10 Years Smoked: 26 e-Cigarette/Vaping Use: Never Used Second Hand Smoke Exposure: Yes Substance Use Type: Marijuana Advance Directives: No Advance Directives Information Provided: No Do you have a plan to hurt others: No Plan service: No Current occupational status: unemployed Sexual orientation: Straight/Heterosexual Gender identity: Female Cognitive needs: No Hearing needs: No Vision needs: No Physical Exam ED Vital Signs: Vital Signs - 24 hr 01/02/25 13:54 Temperature 97.8 F Pulse Rate 76 Respiratory Rate 18 Blood Pressure 115/88 Pulse Oximetry 95 Oxygen Delivery Method Room Air BMI result Body Mass Index 31.6 Course Course Course Narrative: RME: 49 female presents to ED for vomiting blood for 3 days. Patient also states abdominal pain. Patient states in the past she has had throat trauma but has no recent trauma to the throat. Patient denies any rectal bleeding dizziness chest pain or shortness of breath. Oral cavity negative for signs of oral bleeding. Negative for signs of neck swelling or ecchymosis around the neck. Labs ordered Discharge Plan Discharge Clinical Impression: Abdominal pain Patient Disposition: Left W/O Completing Treatment Prescriptions: No Action dextroamphetamine-amphetamine 15 mg tablet 1 tab PO BID clonazepam 1 mg tablet 1 mg PO BID PRN venlafaxine 75 mg capsule,extended release 24hr 75 mg PO QAM aripiprazole 10 mg tablet 10 mg PO DAILY esomeprazole magnesium [Nexium] 40 mg capsule,delayed release(DR/EC) 40 mg PO DAILY Qty: 30 5RF Linzess 145 mcg capsule 145 mcg PO DAILY Qty: 30 4RF cholecalciferol (vitamin D3) 125 mcg (5,000 unit) capsule 125 mcg PO DAILY Qty: 90 3RF cyclobenzaprine 5 mg tablet 5 mg PO BEDTIME Qty: 30 0RF Discharge Date/Time: 01/02/25 15:54
--- OUTSIDE RECORDS SUMMARY | 2025-01-02 16:40 | XMS_ITS | Clinical Summary ---
Author Organization [facility] Address [address] [place] [address] Care Team Providers Care Spinner Operator Name Role Phone David Graves MD Primary Care Provider [phone] Allergies Active Allergy Reactions Criticality Noted Date [...] Description 11/22/2024 5:10 AM EDT Ancillary Procedure [facility] Radiology [address] [place] [address] Provider, File Room 11/22/2024 5:05 AM EDT Ancillary Procedure [facility] Radiology [address] [place] [address] Provider, File Room 11/22/2024 1:52 AM EDT - 11/22/2024 2:31 PM EDT Hospital Encounter [facility] Emergency Department [address] [place] [address] Virginie Reis MD Sherif, Mohamed, MD Singh, Gagan, MD Narrowing of airway (Primary Dx); Neck pain; Syncope and collapse; Airway obstruction; Prolonged QT interval; Left against medical advice Discharge Disposition: Left Against Medical Advice/ AMA 11/22/2024 Travel 11/21/2024 Orders Only [facility] Radiology [address] [place] [address] Provider, File Room 11/21/2024 Orders Only [facility] Radiology [address] [place] [address] Provider, File Room from Last 3 Months [...] is included. Ventricular rate 81 BPM EKG [facility] Atrial rate 81 BPM EKG [facility] P-R interval 156 ms EKG [facility] QRS duration 88 ms EKG [facility] Q-T interval 438 ms EKG [facility] QTC calculation (Bazett) 509 ms EKG [facility] P axis 73 degrees EKG [facility] R axis 38 degrees EKG [facility] T axis 60 degrees EKG [facility] 11/22/2024 2:08 PM EDT Narrative [facility] - 11/22/2024 7:12 PM EDT Normal [...] ECG ORDERABLES Final Result Performing Organization Address [facility] de Phone Number [facility] * CT Head Archive for Reference Only (11/22/2024 5:04 AM EDT) Only the most recent of2 resultswithin the time period is included. Jo ALDRICH - 11/22/2024 5:04 AM EDT This study has been auto finalized and does not contain a result. us File Room Provider IMG DIGITIZE FILMS Final Resu lt Performing Organization Address [facility] Co de Phone Number VALDEMAR [phone] * CT Reconstructed Data Without IV Contrast [...] root impingement. Interpreted by: ??Venkatesh Mendoza DO Protozoology Teacher I personally reviewed the images and the [...] criteria. The data was processed at the ct technologist workstation for generation of MIP images. [...] criteria. The data was processed at the ct technologist workstation for generation of MIP images. [...] root impingement. Interpreted by: Venkatesh Mendoza DO Protozoology Teacher I personally reviewed the images and the [...] root impingement. Interpreted by: ??Venkatesh Mendoza DO Protozoology Teacher I personally reviewed the images and the [...] criteria. The data was processed at the ct technologist workstation for generation of MIP images. [...] criteria. The data was processed at the ct technologist workstation for generation of MIP images. [...] root impingement. Interpreted by: Venkatesh Mendoza DO Protozoology Teacher I personally reviewed the images and the resident's preliminary report and AGREE with the report as it is now presented (RADPAL1). us Virginie Reis MD IMG CT ORDERABLES Final Result * High Sensitivity Troponin T (11/22/2024 2:47 AM EDT) High Sensitivity Troponin T 14 <15 ng/L 11/22/2024 11:41 AM EDT [facility] Delta (Change) NO PREVIOUS RESULT <3 11/22/2024 11:41 AM EDT [facility] 11/22/2024 2:47 AM EDT 11/22/2024 3:26 AM EDT us Virginie Reis MD LAB BLOOD ORDERABLES Final Resul t Performing Organization Address [facility] Co de Phone Number [address] [address], [address] [address] * proBNP, N-terminal (11/22/2024 2:47 AM EDT) proBNP, N-terminal 94 <125 pg/mL 11/22/2024 11:41 AM EDT [facility] 11/22/2024 2:47 AM EDT 11/22/2024 3:26 AM EDT us Virginie Reis MD LAB BLOOD ORDERABLES Final Resul t Performing Organization Address [facility] [place] [address], [facility] [address] [place] [address] * (ABNORMAL) Complete Blood Count, with Differential (11/22/2024 2:47 AM EDT) [facility] White Blood Cell Count 7.7 4.0 - 11.0 Thou/uL 11/22/2024 3:40 AM [facility] Platelet Count 309 150 - 450 Thou/uL 11/22/2024 3:40 AM [facility] Hemoglobin 15.8(H) 11.7 - 15.7 g/dL 11/22/2024 3:40 AM [facility] Hematocrit 46.5 35.0 - 47.0 % 11/22/2024 3:40 AM [facility] Red Blood Cell Count 5.47(H) 4.00 - 5.40 Mil/uL 11/22/2024 3:40 AM [facility] MCV 85 80 - 100 fL 11/22/2024 3:40 AM [facility] MCH 28.9 26.0 - 34.0 pg 11/22/2024 3:40 AM [facility] MCHC 34.0 30.0 - 36.0 g/dL 11/22/2024 3:40 AM [facility] RDW 12.5 11.5 - 14.5 % 11/22/2024 3:40 AM [facility] MPV 11.0 7.5 - 12.5 fL 11/22/2024 3:40 AM [facility] Neutrophils Auto 83.5 % 11/23/19 3:40 AM [facility] Immature Granulocytes 0.7 % 11/22/2024 3:40 AM [facility] Lymphocytes Auto 13.4 % 11/23/19 3:40 AM [facility] Monocytes Auto 2.3 % 11/22/2024 3:40 AM [facility] Eosinophils Auto 0.0 % 11/23/19 3:40 AM [facility] Basophils Auto 0.1 % 11/22/2024 3:40 AM [facility] Abs Neutrophils Auto 6.39 2.00 - 7.50 Thou/uL 11/22/2024 3:40 AM [facility] Abs Immature Granulocytes 0.05 0.00 - 0.10 Thou/uL 11/22/2024 3:40 AM EDT [facility] Abs Lymphocytes Auto 1.03(L) 1.50 - 4.50 Thou/uL 11/22/2024 3:40 AM EDT [facility] Abs Monocytes Auto 0.18(L) 0.20 - 1.50 Thou/uL 11/22/2024 3:40 AM EDT [facility] Abs Eosinophils Auto 0.00 0.00 - 0.70 Thou/uL 11/22/2024 3:40 AM EDT [facility] Abs Basophils Auto 0.01 0.00 - 0.20 Thou/uL 11/22/2024 3:40 AM EDT [facility] Blood Blood specimen / Unknown 11/22/2024 2:47 AM EDT 11/22/2024 3:26 AM EDT us Virginie Reis MD LAB BLOOD [place] [address], [place] [address] * (ABNORMAL) Magnesium (11/22/2024 2:47 AM EDT) Magnesium 3.0(H) 1.6 - 2.7 mg/dL 11/22/2024 4:00 AM EDT [facility] Blood Blood specimen / Unknown 11/22/2024 2:47 AM EDT 11/22/2024 3:26 AM EDT us Virginie Reis MD LAB BLOOD [place] [address], [place] [address] * (ABNORMAL) Comprehensive Metabolic Panel (11/22/2024 2:47 AM EDT) Glucose 175(H) 65 - 99 mg/dL 11/22/2024 4:00 AM [facility] Comment:Fasting: <100 mg/dL, Non-Fasting: <200 mg/dL (ADA 2004) Blood Urea Nitrogen (BUN) 15 8 - 21 mg/dL 11/22/2024 4:00 AM [facility] Creatinine 0.5 0.4 - 1.1 mg/dL 11/22/2024 4:00 AM [facility] eGFR >90 >59 11/22/2024 4:00 AM [facility] Comment:CKD-EPI (2020) in mL /min/1.73 sq meters. Sodium 134(L) 136 - 145 mmol/L 11/22/2024 4:00 AM [facility] Potassium 3.5 3.4 - 5.3 mmol/L 11/22/2024 4:00 AM [facility] Chloride 91(L) 98 - 107 mmol/L 11/22/2024 4:00 AM [facility] CO2 28 22 - 33 mmol/L 11/22/2024 4:00 AM [facility] Calcium 10.0 8.7 - 10.5 mg/dL 11/22/2024 4:00 AM [facility] Alkaline Phosphatase 73 32 - 122 U/L 11/22/2024 4:00 AM [facility] Aspartate Aminotrans (AST) 87(H) 10 - 50 U/L 11/22/2024 4:00 AM [facility] Alanine Aminotrans (ALT) 95(H) 10 - 50 U/L 11/22/2024 4:00 AM [facility] Bilirubin, Total 0.4 0.2 - 1.0 mg/dL 11/22/2024 4:00 AM [facility] Protein, Total 7.3 6.3 - 8.3 g/dL 11/22/2024 4:00 AM [facility] Albumin 4.3 3.5 - 5.0 g/dL 11/22/2024 4:00 AM [facility] BUN/Creatinine Ratio 30(H) 10.0 - 25.0 Ratio 11/22/2024 4:00 AM [facility] Globulin 3.0 1.5 - 3.9 g/dL 11/22/2024 4:00 AM [facility] Albumin/Globulin Ratio 1.4 1.0 - 3.0 Ratio 11/22/2024 4:00 AM EDT [facility] Anion Gap 15 7 - 17 11/22/2024 4:00 AM EDT [facility] Blood Blood specimen / Unknown 11/22/2024 2:47 AM EDT 11/22/2024 3:26 AM EDT us Virginie Reis MD LAB BLOOD ORDERABLES Final Resul t [address] [address], [address] [address] * (ABNORMAL) POCT Glucose, Fingerstick (11/22/2024 2:08 AM EDT) POC Glucose 180(H) 65 - 99 mg/dL 11/22/2024 2:09 AM EDT Blood specimen / Unknown 11/22/2024 2:08 AM EDT 11/22/2024 2:09 AM EDT Virginie Reis MD POINT OF CARE TEST ORDERABLES Fi nal Result Performing Organization Address City/State/[facility] Co de Phone Number HOSPITAL LAB See Below from Last 3 Months Insurance [facility] Advance Directives * Full Code (Latest Code Status on File) Date Activated Date Inactivated Comments 11/22/2024 11:07 AM Care Teams Spinner Operator Relationship Specialty Start Date End Date David Graves MD [address] [place], [place] [address] PCP - General Internal Medicine 11/22/24
--- OUTSIDE RECORDS SUMMARY | 2025-01-02 16:40 | XMS_ITS | Data Portability ---
Author Organization [facility], [address] Address [address] [place] [address] Assessment No assessment recorded. Plan of Treatment Reminders Order Date Submit Date Provider Last Modified By Organization Details Last Modified Time Details Appointments None recorded. Lab None recorded. Referral emergency medicine referral - Significant left hip pain - cannot ambulate - history of fracture as a child. Coming by EMS. 2022 023 [email or web address] 26 [facility] ([facility] [address] [place] [address], [address], 3 07:26:15 Procedures None recorded. Surgeries None [...] femur. 2022 023 [facility], [address] [facility] [place], [address], 3 19:26:28 Medication Orders None recorded. Patient TargetsNo targets recorded. Patient Instructions Encounter Date Encounter Id Patient Instructions Last Modified By Organization Details Last Modified Time 10/01/2022 [id number] Based on your ex am and presentation [...] why my recommendation is the Emergency Room. [email or web address] Not available 10/01/2022 17:11:48 Reason for Referral [...] unila teral No observ ation record ed. [email or web address] [facility] [address] [place], [address], 10/01/2022 20:31:21 Result Notes None recorded. Problems Name Problem SNOMED Code Status Onset Date Resolution Date Notes Provider Name and Address Organization Details Recorded Time Attention deficit hyperactivity disorder 751475524 Active 2022 Leonora holley, PA - [facility] 3 15:54:19 Bipolar disorder 35938963 Active 2022 Leon[facility], [facility] - [facility] [...] 10/01/2022 XR, hip + pelvis, unilateral completed [email or web address] [facility] [address] [place], [address], 10/01/2022 20:31:21 Procedure Notes None recorded. Medical Equipment None Reported. Allergies Allergen ID Allergen Name Allergen Category Reaction Reaction Severity Criticality Documentation Date Start Date Code Code System Note Provider Name and Address Organization Details Recorded Time 716274 Tylenol medicatio n Not available Not available Not available 10/01/2022 18246 3 RxNorm Leonora Hu null, PA - [facility] 3 15:51:44 343201 ibuprofen medicatio n Not available Not available Not available 10/01/2022 5640 RxNorm Leonora Hu null, PA - [facility] 3 15:52:00 753842 Latuda medicatio n Not available Not available Not available 10/01/2022 87081 32 RxNorm Leonora Hu null, PA - [facility] 3 15:52:05 893731 aspirin medicatio n Not available Not available [...] Updated DateTime 11/05/2022 165.1 cm CALOS CASTILLO [facility] [place], [address], PA - [facility] 12/01/2022 20:03:21 Date [...] /min 97.7 [degF] 165.1 cm 25.8 kg/m2 04180.8 2 g 109 mm[Hg] 76 mm[Hg] Leonora [...] SNOMED-CT Code Diagnosis ICD10 Code Diagnosis Note [id number] [facility] CASTILLO [address] [address] 10/01/2022 14:29:12 10/01/2022 17:16:29 Pain of left hip joint 6424257186 11981 M25.552 S/P fall out of bed x 1 week ago. [id number] [facility]STILLO [address] [place] [address] 11/05/2022 08:18:11 12/01/2022 20:03:56 Left without being seen [id number] 9102 Z53.21 Health Concerns Section Related Observation LastModified by Organization Detai ls LastModified Time None Recorded Concern Status LastModified by Organization Details LastModified Time None Recorded Advance Directives Directive None Recorded Payers Encounter Date Sequence Insurance Name Policy Number Policy Rios Covered Member ID Rios Member ID Guarantor Name 10/01/2022 1 [place]IOR [place] 2022 - [facility] (MEDICAID) Dominique Galvan Suzy [id number] Dominique Almonte 11/05/2022 1 [place]IOR [place] 2022 - [facility] (MEDICAID) Dominique Galvan Suzy [id number] Dominique Almonte Notes Date Note Type Note [...] CALOS CASTILLO [address] [place], [address], [place] - [facility] 10/01/2022 17:47:49 OBGyn Episode No OBEpisode recorded.
--- OUTSIDE RECORDS SUMMARY | 2025-01-02 16:40 | XMS_ITS | Clinical Summary ---
Author Organization Carol [facility] ity Address [address] [place] [address] Care Team Providers Care Medical Biller Coder Name Role Phone Lilliana Mosqueda MD Primary [...] age to complete this topic Care Teams Medical Biller Coder Relationship Specialty Start Date End Date Lilliana Mosqueda MD [address] [place] [address] PCP - General Family Medicine 05/31/19
== END 2025-01-02 15:54 | disposition left against medical advice (07) ==
PROVIDERS: Emergency Provider Emergency Medicine
DX: R10.9 Unspecified abdominal pain (principal); Z79.899 Other long term (current) drug therapy
CPT/HCPCS: 99281

== ENCOUNTER 2025-01-09 08:34 | Outpatient (AMB) | payer OTHER, SELFPAY ==
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
[2025-01-09 08:44] VITALS: BP 110/70; PULSE 70; O2SAT 96; BMI 31.6
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
--- OUTSIDE RECORDS SUMMARY | 2025-01-09 08:53 | XMS_ITS | Clinical Summary ---
Author Organization [facility] ity Address [address] [place] [address] Care Team Providers Care Urban Planning Teacher Name Role Phone Lilliana Mosqueda MD Primary Care Provider [phone] Social History Tobacco Use Types Packs/Day Years [...] age to complete this topic Care Teams Urban Planning Teacher Relationship Specialty Start Date End Date Lilliana Mosqueda MD [address] [place] [phone] PCP - General Family Medicine 05/31/19
--- OUTSIDE RECORDS SUMMARY | 2025-01-09 08:53 | XMS_ITS | Clinical Summary ---
Author Organization [facility] Address [address] [place] [address] Care Team Providers Care Snow Blower Name Role Phone David Graves MD Primary Care Provider +1- [phone] Allergies Active Allergy Reactions Criticality Noted Date [...] Description 11/22/2024 5:10 AM EDT Ancillary Procedure [facility] [address] [place] [address] Provider, File Room 11/22/2024 5:05 AM EDT Ancillary Procedure [facility] [address] [facility] [place] [address] Provider, File Room 11/22/2024 1:52 AM EDT - 11/22/2024 2:31 PM EDT Hospital Encounter [facility] Emergency Department [address] [place] [address] Virginie Reis MD Sherif, Mohamed, MD Singh, Gagan, MD Narrowing of airway (Primary Dx); Neck pain; Syncope and collapse; Airway obstruction; Prolonged QT interval; Left against medical advice Discharge Disposition: Left Against Medical Advice/ AMA 11/22/2024 Travel 11/21/2024 Orders Only [facility] [address] [place] [address] Provider, File Room 11/21/2024 Orders Only [facility] [address] [place] [address] Provider, File Room from Last 3 Months [...] (Ages 21-65) 1998 Mammogram 2017 Colonoscopy 2022 COVID-19 Vaccine ( season) 2024 Influenza Vaccine 03/30/2025 Procedures Procedure Name Priority Date/Time Associated Diagnosis [...] is included. Ventricular rate 81 BPM EKG [facility] Atrial rate 81 BPM EKG [facility] P-R interval 156 ms EKG [facility] QRS duration 88 ms EKG [facility] Q-T interval 438 ms EKG [facility] QTC calculation (Bazett) 509 ms EKG [facility] P axis 73 degrees EKG [facility] R axis 38 degrees EKG [facility] T axis 60 degrees EKG [facility] 11/22/2024 2:08 PM EDT Narrative THE [...] ECG ORDERABLES Final Result Performing Organization Address [facility] de Phone Number [facility] * CT Head Archive for Reference Only (11/22/2024 5:04 AM EDT) Only the most recent of2 resultswithin the time period is included. Jo ALDRICH - 11/22/2024 5:04 AM EDT This study has been auto finalized and does not contain a result. us File Room Provider IMG DIGITIZE FILMS Final Resu lt Performing Organization Address [facility] Co de Phone Number VALDEMAR [phone] * CT Reconstructed Data Without IV Contrast [...] root impingement. Interpreted by: ??Venkatesh Mendoza DO Asp Net Mvc Developer I personally reviewed the images and the [...] criteria. The data was processed at the space technologist workstation for generation of MIP images. [...] criteria. The data was processed at the space technologist workstation for generation of MIP images. [...] root impingement. Interpreted by: Venkatesh Mendoza DO Asp Net Mvc Developer I personally reviewed the images and the [...] root impingement. Interpreted by: ??Venkatesh Mendoza DO Asp Net Mvc Developer I personally reviewed the images and the [...] criteria. The data was processed at the space technologist workstation for generation of MIP images. [...] criteria. The data was processed at the space technologist workstation for generation of MIP images. [...] root impingement. Interpreted by: Venkatesh Mendoza DO Asp Net Mvc Developer I personally reviewed the images and the resident's preliminary report and AGREE with the report as it is now presented ([email or web address]). us Virginie Reis MD IMG CT ORDERABLES Final Result * High Sensitivity Troponin T (11/22/2024 2:47 AM EDT) High Sensitivity Troponin T 14 <15 ng/L 11/22/2024 11:41 AM EDT [facility] Delta (Change) NO PREVIOUS RESULT <3 11/22/2024 11:41 AM EDT [facility] 11/22/2024 2:47 AM EDT 11/22/2024 3:26 AM EDT us Virginie Reis MD LAB BLOOD ORDERABLES Final Resul t Performing Organization Address [facility] Co de Phone Number [address] [address], [address] [address] * proBNP, N-terminal (11/22/2024 2:47 AM EDT) proBNP, N-terminal 94 <125 pg/mL 11/22/2024 11:41 AM EDT [facility] 11/22/2024 2:47 AM EDT 11/22/2024 3:26 AM EDT us Virginie Reis MD LAB BLOOD ORDERABLES Final Resul t Performing Organization Address [facility] [place] [address], [facility] [address] [place] [address] * (ABNORMAL) Complete Blood Count, with Differential (11/22/2024 2:47 AM EDT) [facility] White Blood Cell Count 7.7 4.0 - 11.0 Thou/uL 11/22/2024 3:40 AM [facility] Platelet Count 309 150 - 450 Thou/uL 11/22/2024 3:40 AM [facility] Hemoglobin 15.8(H) 11.7 - 15.7 g/dL 11/22/2024 3:40 AM [facility] Hematocrit 46.5 35.0 - 47.0 % 11/22/2024 3:40 AM [facility] Red Blood Cell Count 5.47(H) 4.00 - 5.40 Mil/uL 11/22/2024 3:40 AM [facility] MCV 85 80 - 100 fL 11/22/2024 3:40 AM [facility] MCH 28.9 26.0 - 34.0 pg 11/22/2024 3:40 AM [facility] MCHC 34.0 30.0 - 36.0 g/dL 11/22/2024 3:40 AM [facility] RDW 12.5 11.5 - 14.5 % 11/22/2024 3:40 AM [facility] MPV 11.0 7.5 - 12.5 fL 11/22/2024 3:40 AM [facility] Neutrophils Auto 83.5 % 11/23/19 3:40 AM [facility] Immature Granulocytes 0.7 % 11/22/2024 3:40 AM [facility] Lymphocytes Auto 13.4 % 11/23/19 3:40 AM [facility] Monocytes Auto 2.3 % 11/22/2024 3:40 AM [facility] Eosinophils Auto 0.0 % 11/23/19 3:40 AM [facility] Basophils Auto 0.1 % 11/22/2024 3:40 AM [facility] Abs Neutrophils Auto 6.39 2.00 - 7.50 Thou/uL 11/22/2024 3:40 AM [facility] Abs Immature Granulocytes 0.05 0.00 - 0.10 Thou/uL 11/22/2024 3:40 AM EDT [facility] Abs Lymphocytes Auto 1.03(L) 1.50 - 4.50 Thou/uL 11/22/2024 3:40 AM EDT [facility] Abs Monocytes Auto 0.18(L) 0.20 - 1.50 Thou/uL 11/22/2024 3:40 AM EDT [facility] Abs Eosinophils Auto 0.00 0.00 - 0.70 Thou/uL 11/22/2024 3:40 AM EDT [facility] Abs Basophils Auto 0.01 0.00 - 0.20 Thou/uL 11/22/2024 3:40 AM EDT [facility] Blood Blood specimen / Unknown 11/22/2024 2:47 AM EDT 11/22/2024 3:26 AM EDT us Virginie Reis MD LAB [place]LOOD [place] [address], [place] [address] * (ABNORMAL) Magnesium (11/22/2024 2:47 AM EDT) Magnesium 3.0(H) 1.6 - 2.7 mg/dL 11/22/2024 4:00 AM EDT [facility] Blood Blood specimen / Unknown 11/22/2024 2:47 AM EDT 11/22/2024 3:26 AM EDT us Virginie Reis MD LAB BLOOD [place] [address], [place] [address] * (ABNORMAL) Comprehensive Metabolic Panel (11/22/2024 2:47 AM EDT) Glucose 175(H) 65 - 99 mg/dL 11/22/2024 4:00 AM [facility] Comment:Fasting: <100 mg/dL, Non-Fasting: <200 mg/dL (ADA 2004) Blood Urea Nitrogen (BUN) 15 8 - 21 mg/dL 11/22/2024 4:00 AM [facility] Creatinine 0.5 0.4 - 1.1 mg/dL 11/22/2024 4:00 AM [facility] eGFR >90 >59 11/22/2024 4:00 AM [facility] Comment:CKD-EPI (2020) in mL /min/1.73 sq meters. Sodium 134(L) 136 - 145 mmol/L 11/22/2024 4:00 AM [facility] Potassium 3.5 3.4 - 5.3 mmol/L 11/22/2024 4:00 AM [facility] Chloride 91(L) 98 - 107 mmol/L 11/22/2024 4:00 AM [facility] CO2 28 22 - 33 mmol/L 11/22/2024 4:00 AM [facility] Calcium 10.0 8.7 - 10.5 mg/dL 11/22/2024 4:00 AM [facility] Alkaline Phosphatase 73 32 - 122 U/L 11/22/2024 4:00 AM [facility] Aspartate Aminotrans (AST) 87(H) 10 - 50 U/L 11/22/2024 4:00 AM [facility] Alanine Aminotrans (ALT) 95(H) 10 - 50 U/L 11/22/2024 4:00 AM [facility] Bilirubin, Total 0.4 0.2 - 1.0 mg/dL 11/22/2024 4:00 AM [facility] Protein, Total 7.3 6.3 - 8.3 g/dL 11/22/2024 4:00 AM [facility] Albumin 4.3 3.5 - 5.0 g/dL 11/22/2024 4:00 AM [facility] BUN/Creatinine Ratio 30(H) 10.0 - 25.0 Ratio 11/22/2024 4:00 AM [facility] Globulin 3.0 1.5 - 3.9 g/dL 11/22/2024 4:00 AM [facility] Albumin/Globulin Ratio 1.4 1.0 - 3.0 Ratio 11/22/2024 4:00 AM EDT [facility] Anion Gap 15 7 - 17 11/22/2024 4:00 AM EDT [facility] Blood Blood specimen / Unknown 11/22/2024 2:47 AM EDT 11/22/2024 3:26 AM EDT us Virginie Reis MD LAB BLOOD ORDERABLES Final Resul t [address] [address], [address] [address] * (ABNORMAL) POCT Glucose, Fingerstick (11/22/2024 2:08 AM EDT) POC Glucose 180(H) 65 - 99 mg/dL 11/22/2024 2:09 AM EDT Blood specimen / Unknown 11/22/2024 2:08 AM EDT 11/22/2024 2:09 AM EDT Virginie Reis MD POINT OF CARE TEST ORDERABLES Fi nal Result Performing Organization Address City/State/[facility] Co de Phone Number HOSPITAL LAB See Below from Last 3 Months Insurance [facility] [place] [employer] Advance Directives * Full Code (Latest Code Status on File) Date Activated Date Inactivated Comments 11/22/2024 11:07 AM Care Teams Snow Blower Relationship Specialty Start Date End Date David Graves MD [address] [place], [place] [address] PCP - General Internal Medicine 11/22/24
== END 2025-01-09 09:49 | disposition home or self-care (01) ==
LOC: HO.HSMS 08:35
PROVIDERS: PCP Internal Medicine; Visit Provider Nurse Practitioner Family
DX: G43.009 Migraine without aura, not intractable, without status migrainosus (principal); R55 Syncope and collapse; M54.2 Cervicalgia; R13.10 Dysphagia, unspecified; R06.83 Snoring; G47.9 Sleep disorder, unspecified; G47.19 Other hypersomnia
CPT/HCPCS: 99204

== ENCOUNTER → 2025-01-09 08:34 | Outpatient (BNVA) | payer OTHER, SELFPAY | PROVIDERS: PCP Internal Medicine; Visit Provider Nurse Practitioner Family | DX: G43.009 Migraine without aura, not intractable, without status migrainosus (principal); G47.19 Other hypersomnia; G47.9 Sleep disorder, unspecified; R55 Syncope and collapse; R13.10 Dysphagia, unspecified; R06.83 Snoring; M54.2 Cervicalgia | CPT/HCPCS: 99202 ==

== ENCOUNTER 2025-01-15 08:12 | Outpatient (REF) | payer OTHER, SELFPAY ==
--- OUTSIDE RECORDS SUMMARY | 2025-01-15 08:15 | XMS_ITS | Clinical Summary ---
Author Organization [facility] Address [address] [place] [address] Care Team Providers Care Metal Turner Name Role Phone David Graves MD Primary Care Provider +1- [phone] Allergies Active Allergy Reactions Criticality Noted Date [...] Description 11/22/2024 5:10 AM EDT Ancillary Procedure [facility] [address] [place] [address] Provider, File Room 11/22/2024 5:05 AM EDT Ancillary Procedure [facility] [address] [facility] [place] [address] Provider, File Room 11/22/2024 1:52 AM EDT - 11/22/2024 2:31 PM EDT Hospital Encounter [facility] Emergency Department [address] [place] [address] Virginie Reis MD Sherif, Mohamed, MD Singh, Gagan, MD Narrowing of airway (Primary Dx); Neck pain; Syncope and collapse; Airway obstruction; Prolonged QT interval; Left against medical advice Discharge Disposition: Left Against Medical Advice/ AMA 11/22/2024 Travel 11/21/2024 Orders Only [facility] [address] [place] [address] Provider, File Room 11/21/2024 Orders Only [facility] [address] [place] [address] Provider, File Room from Last 3 Months [...] is included. Ventricular rate 81 BPM EKG [facility] Atrial rate 81 BPM EKG [facility] P-R interval 156 ms EKG [facility] QRS duration 88 ms EKG [facility] Q-T interval 438 ms EKG [facility] QTC calculation (Bazett) 509 ms EKG [facility] P axis 73 degrees EKG [facility] R axis 38 degrees EKG [facility] T axis 60 degrees EKG [facility] 11/22/2024 2:08 PM EDT Narrative [facility] - 11/22/2024 7:12 PM EDT Normal sinus [...] ECG ORDERABLES Final Result Performing Organization Address [facility] de Phone Number [facility] * CT Head Archive for Reference Only (11/22/2024 5:04 AM EDT) Only the most recent of2 resultswithin the time period is included. Jo ALDRICH - 11/22/2024 5:04 AM EDT This study has been auto finalized and does not contain a result. us File Room Provider IMG DIGITIZE FILMS Final Resu lt Performing Organization Address [facility] Co de Phone Number VALDEMAR [phone] * CT Reconstructed Data Without IV Contrast [...] root impingement. Interpreted by: ??Venkatesh Mendoza DO Broom Handle Dipper I personally reviewed the images and the [...] criteria. The data was processed at the optometric technologist workstation for generation of MIP images. [...] criteria. The data was processed at the optometric technologist workstation for generation of MIP images. [...] root impingement. Interpreted by: Venkatesh Mendoza DO Broom Handle Dipper I personally reviewed the images and the [...] root impingement. Interpreted by: ??Venkatesh Mendoza DO Broom Handle Dipper I personally reviewed the images and the [...] criteria. The data was processed at the optometric technologist workstation for generation of MIP images. [...] criteria. The data was processed at the optometric technologist workstation for generation of MIP images. [...] root impingement. Interpreted by: Venkatesh Mendoza DO Broom Handle Dipper I personally reviewed the images and the resident's preliminary report and AGREE with the report as it is now presented ([email or web address]). us Virginie Reis MD IMG CT ORDERABLES Final Result * High Sensitivity Troponin T (11/22/2024 2:47 AM EDT) High Sensitivity Troponin T 14 <15 ng/L 11/22/2024 11:41 AM EDT [facility] Delta (Change) NO PREVIOUS RESULT <3 11/22/2024 11:41 AM EDT [facility] 11/22/2024 2:47 AM EDT 11/22/2024 3:26 AM EDT us Virginie Reis MD LAB BLOOD ORDERABLES Final Resul t Performing Organization Address [facility] Co de Phone Number [address] [address], [address] [address] * proBNP, N-terminal (11/22/2024 2:47 AM EDT) proBNP, N-terminal 94 <125 pg/mL 11/22/2024 11:41 AM EDT [facility] 11/22/2024 2:47 AM EDT 11/22/2024 3:26 AM EDT us Virginie Reis MD LAB BLOOD ORDERABLES Final Resul t Performing Organization Address [facility] [place] [address], [facility] [address] [place] [address] * (ABNORMAL) Complete Blood Count, with Differential (11/22/2024 2:47 AM EDT) [facility] White Blood Cell Count 7.7 4.0 - 11.0 Thou/uL 11/22/2024 3:40 AM [facility] Platelet Count 309 150 - 450 Thou/uL 11/22/2024 3:40 AM [facility] Hemoglobin 15.8(H) 11.7 - 15.7 g/dL 11/22/2024 3:40 AM [facility] Hematocrit 46.5 35.0 - 47.0 % 11/22/2024 3:40 AM [facility] Red Blood Cell Count 5.47(H) 4.00 - 5.40 Mil/uL 11/22/2024 3:40 AM [facility] MCV 85 80 - 100 fL 11/22/2024 3:40 AM [facility] MCH 28.9 26.0 - 34.0 pg 11/22/2024 3:40 AM [facility] MCHC 34.0 30.0 - 36.0 g/dL 11/22/2024 3:40 AM [facility] RDW 12.5 11.5 - 14.5 % 11/22/2024 3:40 AM [facility] MPV 11.0 7.5 - 12.5 fL 11/22/2024 3:40 AM [facility] Neutrophils Auto 83.5 % 11/23/19 3:40 AM [facility] Immature Granulocytes 0.7 % 11/22/2024 3:40 AM [facility] Lymphocytes Auto 13.4 % 11/23/19 3:40 AM [facility] Monocytes Auto 2.3 % 11/22/2024 3:40 AM [facility] Eosinophils Auto 0.0 % 11/23/19 3:40 AM [facility] Basophils Auto 0.1 % 11/22/2024 3:40 AM [facility] Abs Neutrophils Auto 6.39 2.00 - 7.50 Thou/uL 11/22/2024 3:40 AM [facility] Abs Immature Granulocytes 0.05 0.00 - 0.10 Thou/uL 11/22/2024 3:40 AM EDT [facility] Abs Lymphocytes Auto 1.03(L) 1.50 - 4.50 Thou/uL 11/22/2024 3:40 AM EDT [facility] Abs Monocytes Auto 0.18(L) 0.20 - 1.50 Thou/uL 11/22/2024 3:40 AM EDT [facility] Abs Eosinophils Auto 0.00 0.00 - 0.70 Thou/uL 11/22/2024 3:40 AM EDT [facility] Abs Basophils Auto 0.01 0.00 - 0.20 Thou/uL 11/22/2024 3:40 AM EDT [facility] Blood Blood specimen / Unknown 11/22/2024 2:47 AM EDT 11/22/2024 3:26 AM EDT us Virginie Reis MD LAB [place]LOOD [place] [address], [place] [address] * (ABNORMAL) Magnesium (11/22/2024 2:47 AM EDT) Magnesium 3.0(H) 1.6 - 2.7 mg/dL 11/22/2024 4:00 AM EDT [facility] Blood Blood specimen / Unknown 11/22/2024 2:47 AM EDT 11/22/2024 3:26 AM EDT us Virginie Reis MD LAB [place]LOOD [place] [address], [place] [address] * (ABNORMAL) Comprehensive Metabolic Panel (11/22/2024 2:47 AM EDT) Glucose 175(H) 65 - 99 mg/dL 11/22/2024 4:00 AM [facility] Comment:Fasting: <100 mg/dL, Non-Fasting: <200 mg/dL (ADA 2004) Blood Urea Nitrogen (BUN) 15 8 - 21 mg/dL 11/22/2024 4:00 AM [facility] Creatinine 0.5 0.4 - 1.1 mg/dL 11/22/2024 4:00 AM [facility] eGFR >90 >59 11/22/2024 4:00 AM [facility] Comment:CKD-EPI (2020) in mL /min/1.73 sq meters. Sodium 134(L) 136 - 145 mmol/L 11/22/2024 4:00 AM [facility] Potassium 3.5 3.4 - 5.3 mmol/L 11/22/2024 4:00 AM [facility] Chloride 91(L) 98 - 107 mmol/L 11/22/2024 4:00 AM [facility] CO2 28 22 - 33 mmol/L 11/22/2024 4:00 AM [facility] Calcium 10.0 8.7 - 10.5 mg/dL 11/22/2024 4:00 AM [facility] Alkaline Phosphatase 73 32 - 122 U/L 11/22/2024 4:00 AM [facility] Aspartate Aminotrans (AST) 87(H) 10 - 50 U/L 11/22/2024 4:00 AM [facility] Alanine Aminotrans (ALT) 95(H) 10 - 50 U/L 11/22/2024 4:00 AM [facility] Bilirubin, Total 0.4 0.2 - 1.0 mg/dL 11/22/2024 4:00 AM [facility] Protein, Total 7.3 6.3 - 8.3 g/dL 11/22/2024 4:00 AM [facility] Albumin 4.3 3.5 - 5.0 g/dL 11/22/2024 4:00 AM [facility] BUN/Creatinine Ratio 30(H) 10.0 - 25.0 Ratio 11/22/2024 4:00 AM [facility] Globulin 3.0 1.5 - 3.9 g/dL 11/22/2024 4:00 AM [facility] Albumin/Globulin Ratio 1.4 1.0 - 3.0 Ratio 11/22/2024 4:00 AM EDT [facility] Anion Gap 15 7 - 17 11/22/2024 4:00 AM EDT [facility] Blood Blood specimen / Unknown 11/22/2024 2:47 AM EDT 11/22/2024 3:26 AM EDT us Virginie Reis MD LAB BLOOD ORDERABLES Final Resul t [address] [address], [address] [address] * (ABNORMAL) POCT Glucose, Fingerstick (11/22/2024 2:08 AM EDT) POC Glucose 180(H) 65 - 99 mg/dL 11/22/2024 2:09 AM EDT Blood specimen / Unknown 11/22/2024 2:08 AM EDT 11/22/2024 2:09 AM EDT Virginie Reis MD POINT OF CARE TEST ORDERABLES Fi nal Result Performing Organization Address City/State/[facility] Co de Phone Number HOSPITAL LAB See Below from Last 3 Months Insurance [facility] [employer] Advance Directives * Full Code (Latest Code Status on File) Date Activated Date Inactivated Comments 11/22/2024 11:07 AM Care Teams Metal Turner Relationship Specialty Start Date End Date David Graves MD [address] [place], [place] [address] PCP - General Internal Medicine 11/22/24
--- OUTSIDE RECORDS SUMMARY | 2025-01-15 08:15 | XMS_ITS | Clinical Summary ---
Author Organization [facility] it[facility] Address [address] [place] [address] Care Team Providers Care Brace End Mainspring Former Name Role Phone Lilliana Mosqueda MD Primary [...] age to complete this topic Care Teams Brace End Mainspring Former Relationship Specialty Start Date End Date Lilliana Mosqueda MD [address] [place] [phone] PCP - General Family Medicine 05/31/19
--- OUTSIDE RECORDS SUMMARY | 2025-01-15 08:15 | XMS_ITS | Data Portability ---
Author Organization [facility], [address] Address [address] [place] [address] Assessment No assessment recorded. Plan of Treatment Reminders Order Date Submit Date Provider Last Modified By Organization Details Last Modified Time Details Appointments None recorded. Lab None recorded. Referral emergency medicine referral - Significant left hip pain - cannot ambulate - history of fracture as a child. Coming by EMS. 2022 023 [email or web address] 26 [facility] [address] [place] [address], [address], 3 07:26:15 Procedures None recorded. Surgeries None [...] pain tracking down the femur. 2022 023 Code [facility], [address] [facility], [place], [address], 3 19:26:28 Medication Orders None recorded. Patient TargetsNo targets recorded. Patient Instructions Encounter Date Encounter Id Patient Instructions Last Modified By Organization Details Last Modified Time 10/01/2022 [id number] Based on your ex am and presentation [...] why my recommendation is the Emergency Room. [email or web address] Not available 10/01/2022 17:11:48 Reason for Referral [...] unila teral No observ ation record ed. [email or web address] [facility] [address] [place], [address], 10/01/2022 20:31:21 Result Notes None recorded. Problems Name Problem SNOMED Code Status Onset Date Resolution Date Notes Provider Name and Address Organization Details Recorded Time Attention deficit hyperactivity disorder 356745525 Active 2022 Leonora holley, PA - [facility] 3 15:54:19 Bipolar disorder 13246997 Active 2022 [facility], [facility] - [facility] [...] 10/01/2022 XR, hip + pelvis, unilateral completed [facility] [address] [place], [address], 10/01/2022 20:31:21 Procedure Notes None recorded. Medical Equipment None Reported. Allergies Allergen ID Allergen Name Allergen Category Reaction Reaction Severity Criticality Documentation Date Start Date Code Code System Note Provider Name and Address Organization Details Recorded Time 825117 Tylenol medicatio n Not available Not available Not available 10/01/2022 05772 3 RxNorm Leonora Hu null, PA - [facility] 3 15:51:44 385218 ibuprofen medicatio n Not available Not available Not available 10/01/2022 5640 RxNorm Leonora Hu null, PA - [facility] 3 15:52:00 529156 Latuda medicatio n Not available Not available Not available 10/01/2022 98730 32 RxNorm Leonora Hu null, PA - [facility] 3 15:52:05 886360 aspirin medicatio n Not available Not available [...] DateTime 11/05/2022 165.1 cm CALOS CASTILLO [facility] [place], [address], PA - [facility] 12/01/2022 20:03:21 Date Recorded Oxygen saturation Oxygen saturation in Arterial blood by Pulse oximetry Heart rate Respiratory rate Body temperature Body height Body mass index (BMI) Body weight Systolic blood pressure Diastolic blood pressure Provider Name and Address Organization Details Last Updated DateTime 3 97 % 97 % 81 /min 20 /min 97.7 [degF] 165.1 cm 25.8 kg/m2 73255.8 2 g 109 mm[Hg] 76 mm[Hg] Leonora Hu PA - [facility] 3 16:28:23 Social History Question Answer Notes LastModified by Organizat ion Details LastModified Time Tobacco Smoking Status Current Every Day Smoker Leonora holley PA - [facility] 10/01/2022 15:55:03 Which [...] 15:50:52 Hep B, adult 01/25/2003 completed Leonora holley PA - [facility] 10/01/2022 15:50:52 Hep B, adult 02/22/2003 completed Leonora holley, PA - [facility] 10/01/2022 15:50:52 Past Encounters Encounter ID Performer Location Encounter Start Date Encounter Closed Date Diagnosis/Indication Diagnosis SNOMED-CT Code Diagnosis ICD10 Code Diagnosis Note [id number] [facility] [address] [facility] [address] [place] [address] 10/01/2022 14:29:12 10/01/2022 17:16:29 Pain of left hip joint 8821398638 84137 M25.552 S/P fall out of bed x 1 week ago. [id number] [facility] [address] [facility] [address] [place] [address] 11/05/2022 08:18:11 12/01/2022 20:03:56 Left without being seen [id number] 9102 Z53.21 Health Concerns Section Related Observation LastModified by Organization Detai ls LastModified Time None Recorded Concern Status LastModified by Organization Details LastModified Time None Recorded Advance Directives Directive None Recorded Payers Insurance Date Sequence Insurance Name Policy Number Policy Rios Covered Member ID Rios Member ID Guarantor Name 11/02/2022 2 [place] [facility] Dominique Almonte [id number] Dominique Almonte 11/05/2022 1 [place] PRIOR TO 2022 - [facility] (MEDICAID) Dominique Almonte [id number] Dominique Almonte Notes Date Note Type Note [...] seeked care since the injury. CALOS CASTILLO [facility] [place], [address], PA - [facility] 10/01/2022 17:47:49 OBGyn Episode No OBEpisode recorded.
== END 2025-01-15 08:13 | disposition home or self-care (01) ==
LOC: HO.LAB 08:12
DX: Z13.89 Encounter for screening for other disorder (principal)

== ENCOUNTER 2025-02-08 15:52 | Outpatient (REF) | payer OTHER, SELFPAY ==
[2025-02-08 16:15] LABS: MANUAL DIFF FLAG NO
[2025-02-08 16:23] LABS: Basophils Percent Auto 0.4 % (0-2); Eosinophils Absolute Auto 0.2 X10*3/uL (0.0-0.4); Eosinophils Percent Auto 2.2 % (0-4); Hematocrit 46.4 % (37.0-47.0); Imm Gran Abs Auto 0.03 X10*3/uL (0.00-0.03); Imm Gran Pct Auto 0.4 % (0.0-0.4); Lymphocytes Absolute Auto 2.3 X10*3/uL (1.2-4.9); Lymphocytes Percent Auto 34.1 % (20-40); Mean Corpuscular HGB Conc 32.3 g/dl (31.0-35.0); Mean Corpuscular Hemoglobin 28.7 pg (27.0-33.0); Mean Corpuscular Volume 88.9 fL (80.0-98.0); Mean Platelet Volume 11.1 fL (9.4-12.3); Monocytes Absolute Auto 0.4 X10*3/uL (0.1-1.2); Monocytes Percent Auto 6.2 % (2-11); Neutrophils Absolute Auto 3.9 x10*3/uL (2.0-8.3); Neutrophils Percent Auto 56.7 % (45-73); Platelet Count 182 X10*3/uL (160-400); Red Blood Count 5.22 X10*6/uL (4.20-5.50); Red Cell Distribution Width 12.4 % (11.0-16.0); White Blood Count 6.8 X10*3/uL (4.8-10.8)
[2025-02-08 16:36] LABS: Estimated Average Glucose 105 mg/dL; Hemoglobin A1C 133.9082 umol/L; Hemoglobin A1c % 5.3 % (<6.0); Total Hemoglobin (HGBA1C) 3944.4177 umol/L
[2025-02-08 16:50] LABS: Alanine Aminotransferase 34 U/L (0-31); Albumin Level 4.4 g/dL (3.5-5.0); Alkaline Phosphatase 66 U/L (39-117); Anion Gap 13 (12-20); Aspartate Amino Transferase 26 U/L (5-31); Bilirubin Total 0.3 mg/dL (0.0-1.0); Blood Urea Nitrogen 20 mg/dL (9-16); Calcium 9.2 mg/dL (8.4-10.2); Carbon Dioxide 25 mmol/L (22-29); Chloride 107 mmol/L (96-108); Cholesterol 151 mg/dL (<200); Estimated Glomerular Filt Rate > 60; Glucose Random 85 mg/dL (60-115); HDL Cholesterol 30 mg/dL (>40); LDL Cholesterol Calculated 88 mg/dL (<100); Potassium 4.5 mmol/L (3.3-5.1); Sodium 140 mmol/L (135-145); Triglycerides 166 mg/dL (<150)
--- OUTSIDE RECORDS SUMMARY | 2025-02-08 18:10 | XMS_ITS | Data Portability ---
Author Organization [facility], [address] Address [address] [place] [address] Assessment No assessment recorded. Plan of Treatment Reminders Order Date Submit Date Provider Last Modified By Organization Details Last Modified Time Details Appointments None recorded. Lab None recorded. Referral emergency medicine referral - Significant left hip pain - cannot ambulate - history of fracture as a child. Coming by EMS. 2022 023 [email or web address] 26 [facility] [address] [place] [address], [address], 3 07:26:15 Procedures None recorded. Surgeries None [...] femur. 2022 023 VERONIKA [facility], [address] [facility], [place], [address], 3 19:26:28 Medication Orders None recorded. Patient TargetsNo targets recorded. Patient Instructions Encounter Date Encounter Id Patient Instructions Last Modified By Organization Details Last Modified Time 10/01/2022 [id number] Based on your ex am and presentation [...] why my recommendation is the Emergency Room. [email or web address] Not available 10/01/2022 17:11:48 Reason for Referral [...] unila teral No observ ation record ed. [email or web address] [facility] [address] [facility] [place], [address], 10/01/2022 20:31:21 Result Notes None recorded. Problems Name Problem SNOMED Code Status Onset Date Resolution Date Notes Provider Name and Address Organization Details Recorded Time Attention deficit hyperactivity disorder 558179391 Active 2022 Leonora holley, PA - [facility] 3 15:54:19 Bipolar disorder 66388485 Active 2022 Leonora holley, PA - [facility] 3 15:54:24 Problem Notes None recorded. Procedures Surgical History Date Name Laterality Status Provider Name and Address Organization Details Recorded Time hysterectomy completed Leonora Hu PA - [facility] 10/01/2022 15:55:15 tonsillectomy completed Leonora Hu P A - [facility] 10/01/2022 15:55:23 Imaging Results None recorded. Procedure Notes None recorded. Medical Equipment None Reported. Allergies Allergen ID Allergen Name Allergen Category Reaction Reaction Severity Criticality Documentation Date Start Date Code Code System Note Provider Name and Address Organization Details Recorded Time 134522 Tylenol medicatio n Not available Not available Not available 10/01/202278976 3 RxNorm Leonora holley, PA - [facility] 3 15:51:44 363109 ibuprofen medicatio n Not available Not available Not available 10/01/2022 5640 RxNorm Leonora holley, PA - [facility] 3 15:52:00 364790 Latuda medicatio n Not available Not available Not available 10/01/2022 26768 32 RxNorm Leonora holley, PA - [facility] 3 15:52:05 187692 aspirin medicatio n Not available Not available Not available 10/01/2022 1191 RxNorm Leonora holley, PA - [facility] 3 15:52:10 Medications [...] Not Available Not Available Vitals Date Recorded Oxygen saturation Oxygen saturation in Arterial blood by Pulse oximetry Heart rate Respiratory rate Body temperature Body height Body mass index (BMI) Body weight Systolic blood pressure Diastolic blood pressure Provider Name and Address Organization Details Last Updated DateTime 97 % 97 % 81 /min 20 /min 97.7 [degF] 165.1 cm 25.8 kg/m2 09951.8 2 g 109 mm[Hg] 76 mm[Hg] Leonora LIVE - [facility] 16:28:23 Date Recorded Body height Provider Name an d Address Organization Details Last Updated DateTime 11/05/2022 165.1 cm CALOS CASTILLO [address] [place], [address], PA - [facility] 12/01/2022 20:03:21 Social History Question Answer Notes LastModified by Organizat ion Details LastModified Time Tobacco Smoking Status Current Every Day Smoker Leonora holley PA Misha [facility] 10/01/2022 15:55:03 Which Illicit Or [...] Time Td(adult) unspecified formulation 01/25/2003 completed Leonora holley PA [facility] 10/01/2022 15:50:52 Influenza, split virus, trivalent, PF 07/07/2015 completed Leonora holley PA - [facility] 10/01/2022 15:50:52 Hep B, adult 01/25/2003 completed Leonora holley PA - [facility] 10/01/2022 15:50:52 Hep B, adult 02/22/2003 completed Leonora holley PA - [facility] 10/01/2022 15:50:52 Past Encounters Encounter ID Performer Location Encounter Start Date Encounter Closed Date Diagnosis/Indication Diagnosis SNOMED-CT Code Diagnosis ICD10 Code Diagnosis Note [id number] [facility] [address] [address] 10/01/2022 14:29:12 10/01/2022 17:16:29 Pain of left hip joint 1137979286 73955 M25.552 S/P fall out of bed x 1 week ago. [id number] [facility] [address] [place] [address] 11/05/2022 08:18:11 12/01/2022 20:03:56 Left without being seen [id number] 9102 Z53.21 Health Concerns Section Related Observation LastModified by Organization Detai ls LastModified Time None Recorded Concern Status LastModified by Organization Details LastModified Time None Recorded Advance Directives Directive None Recorded Payers Insurance Date Sequence Insurance Name Policy Number Policy Rios Covered Member ID Rios Member ID Guarantor Name 11/02/2022 2 [place] [facility] Dominique Almonte [id number] Dominique Almonte 11/05/2022 1 [place] PRIOR TO 2022 - [facility] (MEDICAID) Dominique Almonte [id number] Dominique Almonte Notes Date Note Type Note [...] CALOS CASTILLO [address] [place], [address], PA - [facility] 10/01/2022 17:47:49 OBGyn Episode No OBEpisode recorded.
[2025-02-09 08:26] LABS: HBS Num1 > 1000.00 mIU/mL (0-7.99); HBc Num1 0.48 S/CO (0.00-0.79); HBsAGNum1 0.35 S/CO (0.00-0.99); Hepatitis B Core Antibody Nonreactive (Nonreactive); Hepatitis B Surface Antigen Negative (Negative); ~HepC Num1 0.08 S/CO (0.00-0.79); ~Hepatitis B Surface Antibody REACTIVE (Nonreactive); ~Hepatitis C Antibody Nonreactive (Nonreactive)
== END 2025-02-08 15:53 | disposition home or self-care (01) ==
LOC: HO.NEURO 15:52
PROVIDERS: Visit Provider Nurse Practitioner Family
DX: Z00.00 Encounter for general adult medical examination without abnormal findings (principal); R79.89 Other specified abnormal findings of blood chemistry; R11.2 Nausea with vomiting, unspecified; E11.65 Type 2 diabetes mellitus with hyperglycemia; E78.00 Pure hypercholesterolemia, unspecified
CPT/HCPCS: 36415; 80053; 80061; 83036; 85025; 86704; 86706; 86803; 87340

== ENCOUNTER 2025-03-19 13:55 | Outpatient (AMB) | payer OTHER, SELFPAY ==
[2025-03-19 13:57] VITALS: BP 106/60; PULSE 78; BMI 31.6
--- NOTE | 2025-03-19 13:57 | MHC.OFFVIS ---
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 Allergies Penicillins Allergy (Severe, Verified 01/02/25 13:55) Anaphylaxis acetaminophen (From Tylenol) Allergy (Intermediate, Verified 01/02/25 13:55) Hives aspirin (ASPIRIN) Allergy (Intermediate, Verified 01/02/25 13:55) UNKNOWN gabapentin Allergy (Intermediate, Verified 01/02/25 13:55) Hives varenicline (From CHANTIX) Allergy (Intermediate, Verified 01/02/25 13:55) HIVES ibuprofen Allergy (Verified 01/02/25 13:55) Anaphylaxis lurasidone (From Latuda) Allergy (Verified 01/02/25 13:55) Unknown Bees Allergy (Intermediate, Uncoded 01/02/25 13:55) Anaphylaxis cefuroxime Allergy (Mild, Uncoded 01/02/25 13:55) Itching Medication List - Last Reconciled 03/19/25 by Yoel Aguirre MD No Known Home Meds HPI Comments Details: Dominique is here for consultation regarding syncopal episode. It seems that in October of this year she had a syncopal episode. Patient states she cannot remember exactly what happened during that time. It appears that she came to [place] on the transferred to [facility]. Per [facility] data, patient had 4 days of vomiting and generalized weakness and then she was brushing her teeth and had a syncopal episode. Then it seems that a CAT scan had shown prevertebral soft tissue prominence at C4 and that led to transferred to [facility]. ENT and Neurosurgery were consulted but there was no significant airway compromise. Cardiac monitoring was planned as well as echocardiogram but it seems that patient signed out against medical advice. Patient states that she gets dizzy frequently but has not had any clear-cut syncopal episodes after that. No other cardiac history. During that hospitalization, she was also noted to have prolonged QT. Potassium slightly in his lower slight but not markedly low. However, she does not have any history of long QT syndrome. All her previous EKGs over the last several years as well as EKGs from today shows normal QT. Patient does not know her family history as she is adopted. She states she has longstanding vomiting issues going back few years. [facility] Medical History (Updated 01/11/25 @ 21:23 by DAVID Lozano) Seizure in childhood Vomiting Tongue swelling Trichomonas infection Cervical cancer Badillo's esophagus Encounter for screening colonoscopy (~2019) Hiatal hernia Depression Anxiety Surgical History H/O endoscopy (~2019) S/P tonsillectomy H/O: hysterectomy (~1999) Family History Other Adopted Social History Household Members: Significant Other Housing: Apartment Alcohol intake: never Patient Tobacco Use Status: Former Tobacco user Tobacco use type: Cigarette Cigarette Packs Per Day: 0.5 Cigarettes Per Day: 10 Years Smoked: 26 e-Cigarette/Vaping Use: Never Used Second Hand Smoke Exposure: Yes Substance Use Type: Marijuana service: No Current occupational status: unemployed Sexual orientation: Straight/Heterosexual Gender identity: Female Cognitive needs: No Hearing needs: No Vision needs: No Review of Systems Const Denies weakness ENT Reports dizziness Card Denies chest pain, Denies chest pain with activity, Denies syncope, Denies rapid heart rate, Denies pedal edema, Denies edema, Denies leg edema, Denies lightheadedness, Reports palpitations, Denies dyspnea, Denies dyspnea on exertion and Denies orthopnea Resp Denies cough, Denies dyspnea and Denies dyspnea on exertion GI Denies hematochezia and Denies change in stool character Musc Denies abnormal gait, Denies muscle cramps, Denies muscle weakness, Denies numbness, Denies radiating pain into limb and Denies tingling Neuro Denies abnormal gait, Reports dizziness, Denies syncope, Denies numbness, Denies tingling and Denies weakness Endo Reports palpitations Physical Exam Vital Signs: Last Vital Signs Pulse 78 03/19/25 13:57 BP 106/60 03/19/25 13:57 BMI result Body Mass Index 31.6 Const General: comfortable and no acute distress Orientation/consciousness: patient oriented x3 HEENT Other: Unremarkable Head: Yes normal to inspection Neck Neck: Yes normal visual inspection Chest Chest palpation & inspection: normal inspection of the chest Resp Auscultation: clear to auscultation bilaterally Cardio Palpation: normal PMI Heart sounds: S1 normal heart sound present, S2 normal heart sound present, no gallops, no murmurs and no rubs GI Palpation (GI): Soft to palpation Back/Spine/Pelvis Other: unremarkable Skin General skin exam: no rashes or lesions noted Neuro General: patient oriented x3 Extrem General: Yes normal to inspection Psych Mental Status: mental status grossly normal Office Procedures EKG Details: EKG with underlying sinus rhythm at 73/Min; no ischemic changes; normal WI and corrected QT. Corrected QT is 425 milliseconds. [id number]-[id number], Complete Assessment & Plan Assessment & Plan (1) Prolonged Q-T interval on ECG: Code(s): R94.31 - Abnormal electrocardiogram [ECG] [EKG] Category: Medical Plan In the EKG from October, corrected QT was 540 milliseconds. However, reviewed EKGs going back nearly 20 years till 2004 and there is no EKG showing prolonged QT. Today's EKG shows normal corrected QT. During the timing of the prolonged QT EKG, she has had several days of vomiting and mild hypokalemia. Hence wonder if that is etiology for the long QT. Syncope itself could have been from persistent vomiting/dehydration and possible ventricular arrhythmias although no arrhythmias were documented during the actual hospitalization itself. Overall prolonged QT in an isolated EKG most likely related to hypokalemia. Do not believe she has congenital long QT. Less likely medication related, but hypokalemia in combination with psychiatry medication can prolonged QT. We will do a comprehensive workup with echocardiogram and 14 day Holter. Otherwise, with regard to dizziness, most likely from low blood pressure. Can liberalize salt intake. With regard to question of starting back on the depression medications, avoid medications that can prolong QT interval. After starting any new psychiatry medication, check EKG within a few days to ensure there is no new finding. Of note, patient states that she used to be on these medications for many years and all the EKGs that have been performed have shown essentially normal QT. Plan discussed with significant other. Orders: Orders CA echo transthoracic complete Today R94.31 - Abnormal electrocardiogram [ECG] [EKG] ECG 14 day holter monitor Today R94.31 - Abnormal electrocardiogram [ECG] [EKG] Coding Level of Care Code New Pt Level 4 (66014) Complex EM visit Add On G2211 Diagnoses Prolonged Q-T interval on ECG R94.31 CPT Codes EKG - CPT: 06729-[id number], Complete ([id number])
--- OUTSIDE RECORDS SUMMARY | 2025-03-19 14:44 | XMS_ITS | Clinical Summary ---
Author Organization [facility] Address [address] [place] [address] Care Team Providers Care Clay Structure Builder And Servicer Name Role Phone David Graves MD Primary Care Provider [phone] Allergies Active Allergy Reactions Criticality Noted Date [...] Date Diagnosed Date Syncope and collapse 11/22/2024 Social History Tobacco Use Types Packs/Day Years [...] 79 11/22/2024 12:48 PM EDT Temperature 36.4 C (97.5 F) 11/22/2024 7:57 AM EDT Respiratory Rate 18 11/22/2024 12:48 PM EDT [...] Mammogram 2017 Colonoscopy 2022 COVID-19 Vaccine ( - 2023- season) 2024 Influenza Vaccine 03/30/2025 Insurance [employer] Advance Directives * Full Code (Latest Code Status on File) Date Activated Date Inactivated Comments 11/22/2024 11:07 AM Care Teams Clay Structure Builder And Servicer Relationship Specialty Start Date End Date David Graves MD [address] [place] [address] Dr Aponte, [place]O [address] PCP - General Internal Medicine 11/22/24
--- OUTSIDE RECORDS SUMMARY | 2025-03-19 14:44 | XMS_ITS ---
Author Name [facility] Organization Unknown Results Test Name/Text Value Interpretation Date Range Source pro BNP, N-terminal 94.0 pg/mL Normal 11/22/2024 - 125 [facility] Delta NO PREVIOUS RESULT Normal 11/22/2024 - 3 [facility] Troponin T SerPl-mCnc 14.0 ng/L Normal 11/22/2024 - 15 [facility] Magnesium SerPl-mCnc 3.0 mg/dL Above high normal 11/22/2024 1.6 - 2.7 [facility] Calcium SerPl-mCnc 10.0 mg/dL Normal 11/22/2024 8.7 - 10. 5 [facility] Anion Gap Bld-sCnc 15.0 Normal 11/22/2024 7 - 17 [facility] BUN SerPl-mCnc 15.0 mg/dL Normal 11/22/2024 8 - [address] Albumin SerPl-mCnc 4.3 g/dL Normal 11/22/2024 3.5 - 5 [facility] Creat SerPl-mCnc 0.5 mg/dL Normal 11/22/2024 0.4 - 1.1 HH CCT ALP SerPl-cCnc 73.0 U/L Normal 11/22/2024 32 - 122 HHCC T AST SerPl-cCnc 87.0 U/L Above high normal 11/22/2024 10 - 5 0 [facility] Globulin Ser Calc-mCnc 3.0 g/dL Normal 11/22/2024 1.5 - 3.9 [facility] Potassium SerPl-sCnc 3.5 mmol/L Normal 11/22/2024 3.4 - 5 .3 [facility] CO2 SerPl-sCnc 28.0 mmol/L Normal 11/22/2024 22 - 33 HH CCT Sodium SerPl-sCnc 134.0 mmol/L Below low normal 11/22/2024 1 36 - 145 [facility] BUN/Creat SerPl 30.0 Ratio Above high normal 11/22/2024 10 - 25 [facility] Prot SerPl-mCnc 7.3 g/dL Normal 11/22/2024 6.3 - 8.[address] Chloride SerPl-sCnc 91.0 mmol/L Below low normal 11/22/2024 98 - 107 [facility] Bilirub SerPl-mCnc 0.4 mg/dL Normal 11/22/2024 0.2 - 1 [facility] ALT SerPl-cCnc 95.0 U/L Above high normal 11/22/2024 10 - 5 0 [facility] Albumin/Glob SerPl 1.4 Ratio Normal 11/22/2024 1 - 3 [facility] Glucose SerPl-mCnc 175.0 mg/dL Above high normal 11/22/2024 65 - 99 [facility] GFR/BSA.pred SerPlBld [id number] >90.0 Normal 11/22/2024 59 - [facility] Basophils/leuk NFr Bld Auto 0.1 % Normal 11/22/2024 [facility] Neutrophils/leuk NFr Bld Auto 83.5 % Normal 11/22/2024 [facility] Lymphocytes num Bld Auto 1.03 Thou/uL Below low normal 11/22/2024 1.5 - 4.5 [facility] PMV Bld Auto 11.0 fL Normal 11/22/2024 7.5 - 12.5 [facility] Imm Granulocytes num Bld Auto 0.05 Thou/uL Normal 11/22/2024 0 - 0.1 [facility] Imm Granulocytes/leuk NFr Bld Auto 0.7 % Normal 11/22/2024 [facility] MCH RBC Qn Auto 28.9 pg Normal 11/22/2024 26 - [address] RBC num Bld Auto 5.47 Mil/uL Above high normal 11/22/2024 4 - 5.4 [facility] Neutrophils num Bld Auto 6.39 Thou/uL Normal 11/22/2024 2 - 7.5 [facility] Eosinophil/leuk NFr Bld Auto 0.0 % Normal 11/22/2024 [facility] RDW RBC Auto-Rto 12.5 % Normal 11/22/2024 11.5 - 14.5 [facility] Hct VFr Bld Auto 46.5 % Normal 11/22/2024 35 - 47 HH CCT WBC num Bld Auto 7.7 Thou/uL Normal 11/22/2024 4 - 11 [facility] Monocytes num Bld Auto 0.18 Thou/uL Below low normal 11/22/2024 0.2 - 1.5 [facility] MCV RBC Auto 85.0 fL Normal 11/22/2024 80 - 100 [facility] Lymphocytes/leuk NFr Bld Auto 13.4 % Normal 11/22/2024 [facility] Monocytes/leuk NFr Bld Auto 2.3 % Normal 11/22/2024 [facility] Hgb Bld-mCnc 15.8 g/dL Above high normal 11/22/2024 11.7 - 1 5.7 [facility] Basophils num Bld Auto 0.01 Thou/uL Normal 11/22/2024 0 - 0.2 [facility] Platelet num Bld Auto 309.0 Thou/uL Normal 11/22/2024 150 - 450 [facility] MCHC RBC Auto-mCnc 34.0 g/dL Normal 11/22/2024 30 - 36 [facility] Eosinophil num Bld Auto 0.0 Thou/uL Normal 11/22/2024 0 - 0.7 [facility] POC Glucose 180.0 mg/dL Above high normal 11/22/2024 65 - 99 [facility] Encounters Encounter Type Encounter Reason Primary Diagnosis Location Date Inpatient Other specified respiratory disorders Other specified respiratory disorders [facility] 11/22/2024 Care Team Organization Name Specialty Phone Email Start Date End Adryan pitt [facility] 11/28/2024 12/23/2024 [facility] Primary Care 11/22/2024 [facility] 11/22/2024
--- OUTSIDE RECORDS SUMMARY | 2025-03-19 14:44 | XMS_ITS | Clinical Summary ---
Author Organization [facility] Address [address] [place] [address] Care Team Providers Care Auto Washer Name Role Phone Lilliana Mosqueda MD Primary [...] season) 2024 Colorectal Cancer Screening: Colonoscopy 07/02/2024 HIV Screening 07/02/2024 Hepatitis C Screening 07/02/2024 Social Influencers of Health Screening 07/02/2024 Depression Screening 08/30/2024 Influenza Vaccine (#1) 2025 HIB Vaccines Aged Out No longer [...] 5 Years) and At-Risk Patients (6 to 49 Years) Aged Out No longer eligible b ased on patient's age to complete this topic RSV Immunization Patients Under 20 months Aged Out No longer eligible b ased on patient's age to complete this topic Varicella Vaccines Aged Out No longer eligible based on patient's age to complete this topic Care Teams Auto Washer Relationship Specialty Start Date End Date Lilliana Mosqueda MD [address] [place] [id number] PCP - General Family Medicine 05/31/19
--- OUTSIDE RECORDS SUMMARY | 2025-03-19 14:45 | XMS_ITS | Encounter Summary ---
Author Organization [facility] Address [address] [place] [address] Phone Care Team Providers Care Metalizing Machine Operator Automatic Name Role Phone Lilliana Mosqueda MD Primary Care Provider [phone] Lilliana Mosqueda MD Unavailable [phone] Leora Avina MD Unavailable [phone] Bharath Orozco CNP Unavailable [phone] Lilliana Mosqueda MD Unavailable [phone] Deysi Poe RN Unavailable Encounter Details Date Type Department Care Team (Late st Contact Info) Description 02/11/2018 Procedure Pass [facility], Ct Scan - [address] [address] Social History Tobacco Use Types Packs/Day Years Used Date Smoking Tobacco: Every Day Cigarettes Smokeless Tobacco: Never Alcohol Use Standard Drinks/Week Comments No 0 (1 standard drink = 0.6 oz pur e alcohol) Comments Unknown Sex and Gender Information Value Date Recorded Sex Assigned at Female 02/11/2018 10:57 AM EDT Legal Sex Female 9:26 PM EDT Gender Identity Female 02/11/2018 10:57 AM EDT Sexual Orientation Straight 02/11/2018 10 :57 AM EDT documented as of this encounter Plan of Treatment Not on file documented as of this encounter Visit Diagnoses Not on filedocumented in this encounter Care Teams Metalizing Machine Operator Automatic Relationship Specialty Start Date End Date Lilliana Mosqueda MD PCP - General 06/15/17 Lilliana Mosqueda MD [address] [place] [address] Historical LMR Provider 06/19/17 2 Leora Avina MD [address] [place] [address] Historical LMR Provider 06/19/17 09/06/21 Bharath Orozco CNP [address] [place] [address] Historical LMR Provider 06/19/17 09/06/21 Lilliana Mosqueda MD [address] [place] [address] Insurance Assigned Provider 01/01/18 Deysi Poe, RN [address] [place] [address] [employer] Systems Administration Analyst 08/20/20 10/04/20 documented as of this encounter Additional Source Comments The information contained in this document represents components of the legal health record. It is not the complete legal health record.[facility]
--- OUTSIDE RECORDS SUMMARY | 2025-03-19 14:45 | XMS_ITS | Data Portability ---
Author Organization [facility], [address] Address [address] [place] [address] Assessment No assessment recorded. Plan of Treatment Reminders Order Date Submit Date Provider Last Modified By Organization Details Last Modified Time Details Appointments None recorded. Lab None recorded. Referral emergency medicine referral - Significant left hip pain - cannot ambulate - history of fracture as a child. Coming by EMS. 2022 023 [email or web address] 26 [facility] [address] [place] [address], [address], 3 07:26:15 Procedures None recorded. Surgeries None [...] pain tracking down the femur. 2022 023 [place] [email or web address], [address] [facility], [place], [address], 3 19:26:28 Medication Orders None recorded. Patient TargetsNo targets recorded. Patient Instructions Encounter Date Encounter Id Patient Instructions Last Modified By Organization Details Last Modified Time 10/01/2022 [id number] Based on your ex am and presentation [...] unila teral No observ ation record ed. [email or web address] [facility] [address] [facility] [place], [address], 10/01/2022 20:31:21 Result Notes None recorded. Problems Name Problem SNOMED Code Status Onset Date Resolution Date Notes Provider Name and Address Organization Details Recorded Time Attention deficit hyperactivity disorder 189382661 Active 2022 Leonora holley, [place] - [facility] 3 15:54:19 Bipolar disorder 01078858 Active 2022 [facility] - [facility] [...] Name and Address Organization Details Recorded Time 089078 Tylenol medicatio n Not available Not available Not available 10/01/2022 3 RxNorm Leonora holley, PA - [facility] 15:51:44 974008 ibuprofen medicatio n Not available Not available Not available 10/01/2022 5640 RxNorm Leonora holley, PA - [facility] 3 15:52:00 684063 Latuda medicatio n Not available Not available Not available 10/01/2022 41859 32 RxNorm Leonora holley, [place] - [facility] 3 15:52:05 983499 aspirin medicatio n Not available Not available [...] Body mass index (BMI) Body weight Systolic And Diastolic Provider Name and Address Organization Details Last Updated DateTime 97 % 97 % 81 /min 20 /min 97.7 [degF] 165.1 cm 25.8 kg/m2 78843.8 2 g 109/76 mm[Hg] Leonora LIVE - [facility] 16:28:23 Date Recorded Body height Provider Name an d Address Organization Details Last Updated DateTime 11/05/2022 165.1 cm [facility] [address] [place], [address], PA - [facility] 12/01/2022 20:03:21 Social History Question Answer Notes LastModified by Organizat ion Details LastModified Time Tobacco Smoking Status Current Every Day Smoker [facility] Florentino [facility] 10/01/2022 15:55:03 Which Illicit Or [...] formulation 01/25/2003 completed Leonora holley PA Misha [facility] 10/01/2022 15:50:52 Influenza, split virus, [...] SNOMED-CT Code Diagnosis ICD10 Code Diagnosis Note [id number] [facility] [address] [address] [place] [address] 10/01/2022 14:29:12 10/01/2022 17:16:29 Pain of left hip joint 0695131332 45591 M25.552 S/P fall out of bed x 1 week ago. [id number] [facility] [address] [address] [place] [address] 11/05/2022 08:18:11 12/01/2022 20:03:56 Left without being seen [id number] 9102 Z53.21 Health Concerns Section Related Observation LastModified by Organization Detai ls LastModified Time None Recorded Concern Status LastModified by Organization Details LastModified Time None Recorded Advance Directives Directive None Recorded Payers Insurance Date Sequence Insurance Name Policy Number Policy Rios Covered Member ID Rios Member ID Guarantor Name 11/02/2022 2 [place] [facility] Dominique Almonte [id number] Dominique Almonte 11/05/2022 1 [place] PRIOR TO 2022 - [facility] (MEDICAID) Dominique Almonte [id number] Dominique Almonte Notes Date Note Type Note [...] [facility] [address] [place], [address], [place] - [facility] 10/01/2022 17:47:49 OBGyn Episode No OBEpisode recorded.
== END 2025-03-19 14:33 | disposition home or self-care (01) ==
LOC: HO.HCS 13:55
PROVIDERS: Visit Provider Internal Medicine
DX: R94.31 Abnormal electrocardiogram [ECG] [EKG] (principal)
CPT/HCPCS: 93010; 99204

== ENCOUNTER → 2025-03-19 13:55 | Outpatient (BNVA) | payer OTHER, SELFPAY | PROVIDERS: Visit Provider Internal Medicine | DX: R55 Syncope and collapse (principal); R94.31 Abnormal electrocardiogram [ECG] [EKG] | CPT/HCPCS: 93005; 99202 ==

== ENCOUNTER 2025-03-20 15:21 | Outpatient (AMB) | payer OTHER, SELFPAY ==
[2025-03-20 15:22] VITALS: BP 120/76; PULSE 94; RESP 18; TEMP 36.1; O2SAT 97; BMI 30.7
--- NOTE | 2025-03-20 15:22 | MHC.PC.OV ---
Vital Signs 03/20/25 15:22 Height 5 ft 5 in Weight 184 lb 8 oz BMI 30.7 BP 120/76 Blood Pressure Location Lt brachial Position Sitting Respiration 18 Pulse 94 Pulse Source Pulse Oximeter Temp 97.0 F Temp Source Temporal Artery Scan Pulse Oximetry (%) 97 Oxygen Delivery Method Room Air Intake Visit Reasons: not feeling well, can't sleep, throwing up Accompanied by: Significant Other Allergies Penicillins Allergy (Severe, Verified 03/20/25 15:25) Anaphylaxis acetaminophen (From Tylenol) Allergy (Intermediate, Verified 03/20/25 15:25) Hives aspirin (ASPIRIN) Allergy (Intermediate, Verified 03/20/25 15:25) UNKNOWN gabapentin Allergy (Intermediate, Verified 03/20/25 15:25) Hives varenicline (From CHANTIX) Allergy (Intermediate, Verified 03/20/25 15:25) HIVES ibuprofen Allergy (Verified 03/20/25 15:25) Anaphylaxis lurasidone (From Latuda) Allergy (Verified 03/20/25 15:25) Unknown Bees Allergy (Intermediate, Uncoded 03/20/25 15:25) Anaphylaxis cefuroxime Allergy (Mild, Uncoded 03/20/25 15:25) Itching Medication List - Last Reconciled 03/20/25 by Naldo Branch MD doxepin 10 mg PO BEDTIME sennosides-docusate sodium 8.6-50 mg (Senna Plus) 2 tab-caps (2 x 8.6-50 mg) PO BEDTIME Tobacco use date assessed: 03/20/25 Dental Screening Dental Screen Date: 03/20/25 Did you have a dental visit in the last 12 months?: Yes Did you have a dental problem in the last 6 months where you did not have access to dental care?: No Was dental information given to patient?: Patient has dentist [facility] Medical History Seizure in childhood Vomiting Tongue swelling Trichomonas infection Cervical cancer Badillo's esophagus Encounter for screening colonoscopy (~2019) Hiatal hernia Depression Anxiety Surgical History H/O endoscopy (~2019) S/P tonsillectomy H/O: hysterectomy (~1999) Family History Other Adopted Social History Household Members: Significant Other Housing: Apartment Alcohol intake: never Patient Tobacco Use Status: Current everyday Tobacco user Tobacco use type: Cigarette Cigarettes Per Day: 1 Years Smoked: 26 Packs per year/per ci.30 e-Cigarette/Vaping Use: Never Used Second Hand Smoke Exposure: Yes Substance Use Type: Marijuana service: No Current occupational status: unemployed Sexual orientation: Straight/Heterosexual Gender identity: Female Cognitive needs: No Hearing needs: No Vision needs: No Questionnaire PHQ-9 Over the last 2 weeks, how often have you been bothered by any of the following problems? 1. Little interest or pleasure in doing things: more than half the days 2. Feeling down, depressed, or hopeless: not at all 3. Trouble falling or staying asleep, or sleeping too much: more than half the days 4. Feeling tired or having little energy: nearly every day 5. Poor appetite or overeating: more than half the days 6. Feeling bad about yourself - or that you are a failure or have let yourself or your family down: not at all 7. Trouble concentrating on things, such as reading the newspaper or watching television: nearly every day 8. Moving or speaking so slowly that other people could have noticed. Or the opposite - being so fidgety or restless that you have been moving around a lot more than usual: not at all 9. Thoughts that you would be better off or of hurting yourself in some way: not at all Total score: 12 Depression Screening Interpretation: Positive Depression Screening Follow-up: Existing condition and In treatment Depression Screening Done: Yes Source: Developed by Drs. Obi Eden, Danitza Funk, Jose Guadalupe Sweeney and colleagues, with an educational jennifer from [employer]. Thrive Questionnaire Date Thrive assessed: 09/21/24 I am a: Patient What is your living situation today?: I have a steady place to live Within the past 12 months, did the food you bought not last and you didn't have the money to get more?: Sometimes True Within the past 12 months, did you worry whether your food would run out before you got money to buy more?: I choose not to answer this question Do you have trouble paying for medicines?: No Do you have trouble getting transportation to medical appointments?: No Do you have trouble paying your heating and electricity bill?: No Do you have trouble taking care of your child, family member or friend?: No Do you have trouble with day-to-day activities such as bathing, preparing meals, shopping, managing finances, etc.?: Yes Are you currently unemployed and looking for a job?: No Are you interested in more education?: No Please select the resources that you would like help with: None Currently or been in a relationship where the following occur: No concerns reported THRIVE Score: 1 AUDIT C Alcohol Use Questionnaire (AUDIT-C) 1. How often do you have a drink containing alcohol?: Never 3. How often do you have six or more drinks on one occasion?: Never Total Score: 0 JOVITA-7 AMB Questionnaire JOVITA-7 Date JOVITA - 7 assessed: 09/21/24 Feeling nervous, anxious, or on edge: 2 = More than half the days Not being able to stop or control worryin = Not at all Worrying too much about different things: 0 = Not at all Trouble relaxin = Not at all Being so restless that it is hard to sit still: 0 = Not at all Becoming easily annoyed or irritable: 2 = More than half the days Feeling afraid as if something awful might happen: 0 = Not at all Total JOVITA-7 score (0-4 normal; 5-9 mild; 10-14 moderate; 15-21 severe): 4 Source: Developed by Drs. Obi Eden, Danitza Funk, Jose Guadalupe Sweeney and colleagues, with an educational jennifer from [employer]. Physical exam (Primary Care) Vital Signs: Last Vital Signs Temp 97.0 F 03/20/25 15:22 Pulse 94 03/20/25 15:22 Resp 18 03/20/25 15:22 BP 120/76 03/20/25 15:22 Pulse Ox 97 03/20/25 15:22 Oxygen Delivery Method Room Air 03/20/25 15:22 BMI result Body Mass Index 30.7 Tobacco/Smoking Status: Tobacco use Status Tobacco use date assessed 03/20/25 03/20/25 15:27 Patient Tobacco Use Status Current everyday Tobacco 03/20/25 15:27 Tobacco use type Cigarette 03/20/25 15:27 e-Cigarette/Vaping Use Never Used 03/20/25 15:27 PHQ-9: PHQ-9 Score PHQ-9: Total score 9 03/20/25 15:27 Depression Screening Interpretation: Positive Depression Screening Follow-up: Existing condition and In treatment Thrive Assessment: Date of Thrive Assessment Date Thrive assessed 09/21/24 03/20/25 15:27 Currently or been in a relationship where the following occur: No concerns reported Const General: alert; No acute distress Eyes Conjunctivae: conjunctivae normal Resp Auscultation: clear to auscultation bilaterally Cardio Rate: regular rate Rhythm: regular rhythm GI Inspection: Yes normal to inspection Extrem General: Yes normal to inspection and No edema Coding Level of Care Code Est Pt Level 4 (52529) Diagnoses Prolonged Q-T interval on ECG R94.31 GERD (gastroesophageal reflux disease) K21.9 Elevated LFTs R79.89 Cervicalgia M54.2 Generalized anxiety disorder F41.1 Tobacco abuse Z72.0 History of endometrial cancer Z85.42 Insomnia G47.00 Slow transit constipation K59.01 Constipation type: slow transit constipation Assessment & Plan Assessment & Plan (1) Prolonged Q-T interval on ECG: Code(s): R94.31 - Abnormal electrocardiogram [ECG] [EKG] Category: Medical Plan: Patient has met with Cardiology and workup pending but most likely isolated due to hypokalemia from nausea and vomiting (2) GERD (gastroesophageal reflux disease): Code(s): K21.9 - Gastro-esophageal reflux disease without esophagitis Category: Medical Plan: Avoid the foods that causes that usually spicy foods, tomato products, juices, coffee, soda and foods that your sensitive to. After eating do not lie down, allow 3-4 hours before in lie down. And keep the head of bed above 30 degrees to avoid the acid from going up. (3) Elevated LFTs: Code(s): R79.89 - Other specified abnormal findings of blood chemistry Category: Medical Plan: Repeat blood work resolution (4) Cervicalgia: Code(s): M54.2 - Cervicalgia Category: Medical Plan: Continue with physical therapy (5) Generalized anxiety disorder: Code(s): F41.1 - Generalized anxiety disorder Category: Medical Plan: Discussed about counseling and therapy (6) Tobacco abuse: Code(s): Z72.0 - Tobacco use Category: Medical Plan: Patient is strongly advised to stop smoking ! (7) History of endometrial cancer: Code(s): Z85.42 - Personal history of malignant neoplasm of other parts of uterus Category: Medical Plan: Referral to Gynecologic Oncology (8) Insomnia: Code(s): G47.00 - Insomnia, unspecified Category: Medical Plan: Start on doxepin. If insomnia continues will do a referral to Neurology (9) Constipation: Code(s): K59.00 - Constipation, unspecified Category: Medical Qualifiers: Constipation type: slow transit constipation Qualified Code(s): K59.01 - Slow transit constipation Plan: Three rules for constipation 1. Diet need to have a high fiber diet less of meat 2. Increase oral fluids 3. Exercise Plan History of Present Illness The patient is a 49-year-old female presenting with an acute problem of nausea and vomiting following a head injury. She has a history of prolonged QT interval, which was noted to be most likely related to hypokalemia due to nausea and vomiting. The patient was advised to avoid medications that can prolong the QT interval and has been under cardiology care with a normal EKG noted recently. The patient has a history of generalized anxiety disorder and ADHD, which have been longstanding issues. She reports insomnia, which has been exacerbated by her anxiety, and has tried various medications including trazodone and Ambien without relief. She experiences nightmares and has discontinued trazodone due to worsening symptoms. The patient has a history of GERD and has been advised to restart omeprazole if needed. She has been advised to stop smoking due to its impact on her reflux and overall health. The patient has hepatic steatosis, which was identified on an abdominal ultrasound. Her liver function tests were elevated in October but have since normalized with lifestyle modifications. The patient reports chronic pain and swelling in various parts of her body, which has been a persistent issue. She has a history of degenerative spinal disease and has been advised to maintain physical activity to manage her symptoms. The patient has a history of endometrial cancer and underwent a hysterectomy at age 28. She has not been on hormone replacement therapy and has been advised to follow up with gynecology for further management. Health Maintenance - Advised smoking cessation to improve overall health and manage GERD - Recommended vitamin D supplementation due to deficiency - Encouraged physical activity to manage degenerative spinal disease and improve hepatic steatosis - Referral for colon cancer screening - Advised to maintain a healthy diet and hydration to manage hepatic steatosis and constipation Social History - Tobacco use: Patient smokes approximately one cigarette per day. - Substance use: History of polysubstance abuse including cocaine and marijuana. - Exercise: Patient is advised to maintain physical activity to manage health conditions. Review of Systems - General: Reports chronic pain and swelling in various parts of the body. - Cardiovascular: Denies chest pain or palpitations. - Respiratory: Denies dyspnea or cough. - Gastrointestinal: Reports nausea and vomiting following head injury; reports constipation with pebble-like stools. - Neurological: Reports insomnia and nightmares; denies dizziness or headaches. Physical Exam - Cardiovascular: Regular rate and rhythm, no murmurs, rubs, or gallops noted - Respiratory: Clear to auscultation bilaterally Results - Labs: Normal EKG, normal blood count, normal electrolytes, normal renal function, elevated triglycerides at 166 mg/dL, vitamin D deficiency at 17 ng/mL - Imaging: Abdominal ultrasound showing hepatic steatosis, CT showing prevertebral soft tissue prominence at C4 Plan The patient will continue to avoid medications that can prolong the QT interval and follow up with cardiology for further evaluation, including an echocardiogram and 14-day Holter monitoring. For her insomnia, a trial of doxepin will be initiated, and she is encouraged to continue with physical therapy to manage her chronic pain and degenerative spinal disease. Smoking cessation is strongly advised to improve her GERD and overall health, and she is recommended to restart omeprazole if symptoms persist. The patient is advised to maintain a healthy diet and regular exercise to manage her hepatic steatosis and improve her vitamin D levels with supplementation. A referral for colon cancer screening has been made, and she is advised to follow up with gynecology for her history of endometrial cancer and to consider hormone replacement therapy. For her constipation, she is advised to increase fluid intake and dietary fiber, and a laxative has been prescribed to be taken at bedtime as needed. Patient was informed and verbally consented to the use of an ambient scribe for clinic note documentation during this visit. Discussion Notes I discussed with the patient the importance of avoiding medications that can prolong the QT interval and the need for further cardiology evaluation, including an echocardiogram and Holter monitoring. We reviewed her insomnia management options, and I recommended a trial of doxepin. I emphasized the importance of smoking cessation for her GERD and overall health, and advised restarting omeprazole if needed. We discussed the need for a healthy diet and regular exercise to manage hepatic steatosis and improve vitamin D levels, with supplementation as necessary. I made a referral for colon cancer screening and advised follow-up with gynecology for her history of endometrial cancer and potential hormone replacement therapy. For her constipation, I recommended increasing fluid intake and dietary fiber, and prescribed a laxative to be taken at bedtime as needed. Patient Instructions - Avoid medications that can prolong the QT interval. - Take doxepin as prescribed for insomnia. - Stop smoking to improve GERD and overall health. - Restart omeprazole if GERD symptoms persist. - Maintain a healthy diet and regular exercise. - Take vitamin D supplements as recommended. - Follow up with gynecology for endometrial cancer history and hormone therapy discussion. - Increase fluid intake and dietary fiber for constipation management. - Take prescribed laxative at bedtime as needed. Orders: Orders XR DEXA axial skeleton Today M81.0 - Age-related osteoporosis without current pathological fracture, Z85.42 - Personal history of malignant neoplasm of other parts of uterus Referrals Gastroenterology Referral Z12.11 - Encounter for screening for malignant neoplasm of colon Gynecologic Oncology Referral Z85.42 - Personal history of malignant neoplasm of other parts of uterus Medications: New sennosides-docusate sodium 8.6-50 mg (Senna Plus) 2 tab-caps (2 x 8.6-50 mg) PO BEDTIME 60 tabs 0RF K59.01 - Slow transit constipation doxepin 10 mg PO BEDTIME 30 caps 2RF G47.00 - Insomnia, unspecified
--- OUTSIDE RECORDS SUMMARY | 2025-03-20 16:17 | XMS_ITS | Clinical Summary ---
Author Organization [facility] Address [address] [place] [address] Care Team Providers Care Supervisory Examiner Name Role Phone David Graves MD Primary Care Provider [phone] Allergies Active Allergy Reactions Criticality Noted Date [...] Inactivated Comments 11/22/2024 11:07 AM Care Teams Supervisory Examiner Relationship Specialty Start Date End Date David Graves MD [address] [place] [address] Dr Aponte, CHALO [address] PCP - General Internal Medicine 11/22/24
--- OUTSIDE RECORDS SUMMARY | 2025-03-20 16:17 | XMS_ITS | Encounter Summary ---
Author Organization [facility] Address [address] [place] [address] Phone Care Team Providers Care Scratch Finisher Name Role Phone Lilliana Mosqueda MD Primary Care Provider [phone] Lilliana Mosqueda MD Unavailable [phone] Leora Avina MD Unavailable [phone] Bharath Orozco CNP Unavailable [phone] Lilliana Mosqueda MD Unavailable [phone] Deysi Poe RN Unavailable Encounter Details Date Type Department Care Team (Late st Contact Info) Description 02/11/2018 Procedure Pass [facility], Ct Scan - [address] [address] Social History Tobacco Use Types Packs/Day Years [...] on filedocumented in this encounter Care Teams Scratch Finisher Relationship Specialty Start Date End Date Lilliana Mosqueda MD PCP - General 06/15/17 Lilliana Mosqueda MD [address] [place] [address] Historical LMR Provider 06/19/17 2 Leora Avina MD [address] [place] [address] Historical LMR Provider 06/19/17 09/06/21 Bharath Orozco CNP [address] [place] [address] Historical LMR Provider 06/19/17 09/06/21 Lilliana Mosqueda MD [address] [place] [address] Insurance Assigned Provider 01/01/18 Deysi Poe, RN [address] [place] [address] [employer] Papier Mache' Molder 08/20/20 10/04/20 documented as of this encounter Additional Source Comments The information contained in this document represents components of the legal health record. It is not the complete legal health record.[facility]
--- OUTSIDE RECORDS SUMMARY | 2025-03-20 16:17 | XMS_ITS | Clinical Summary ---
Author Organization [facility] ity Address [address] [place] [address] Care Team Providers Care Aerospace Engineer Name Role Phone Lilliana Mosqueda MD Primary [...] age to complete this topic Care Teams Aerospace Engineer Relationship Specialty Start Date End Date Lilliana Mosqueda MD [address] [place] [id number] PCP - General Family Medicine 05/31/19
--- OUTSIDE RECORDS SUMMARY | 2025-03-20 16:17 | XMS_ITS | Data Portability ---
Author Organization [facility], [address] Address [address] [place] [address] Assessment No assessment recorded. Plan of Treatment Reminders Order Date Submit Date Provider Last Modified By Organization Details Last Modified Time Details Appointments None recorded. Lab None recorded. Referral emergency medicine referral - Significant left hip pain - cannot ambulate - history of fracture as a child. Coming by EMS. 2022 023 [email or web address] 26 [facility] [address] [place] [address], [address], 3 07:26:15 Procedures None recorded. Surgeries None [...] pain tracking down the femur. 2022 023 [employer], [address] [facility], [place], [address], 3 19:26:28 Medication Orders None recorded. Patient TargetsNo targets recorded. Patient Instructions Encounter Date Encounter Id Patient Instructions Last Modified By Organization Details Last Modified Time 10/01/2022 [id number] Based on your ex am and presentation [...] why my recommendation is the Emergency Room. [email or web address] Not available 10/01/2022 17:11:48 Reason for Referral [...] unila teral No observ ation record ed. [email or web address] [facility] [address] [facility] [place], [address], 10/01/2022 20:31:21 Result Notes None recorded. Problems Name Problem SNOMED Code Status Onset Date Resolution Date Notes Provider Name and Address Organization Details Recorded Time Attention deficit hyperactivity disorder 494550799 Active 2022 Leonora holley, [place] - [facility] 3 15:54:19 Bipolar disorder 32423696 Active 2022 [facility] [...] Name and Address Organization Details Recorded Time 193653 Tylenol medicatio n Not available Not available Not available 10/01/2022 3 RxNorm Leonora holley, PA - [facility] 15:51:44 890199 ibuprofen medicatio n Not available Not available Not available 10/01/2022 5640 RxNorm Leonora holley, PA - [facility] 3 15:52:00 267322 Latuda medicatio n Not available Not available Not available 10/01/2022 12710 32 RxNorm Leonora holley, [place] - [facility] 3 15:52:05 277743 aspirin medicatio n Not available Not available [...] /min 97.7 [degF] 165.1 cm 25.8 kg/m2 37400.8 2 g 109/76 mm[Hg] Leonora LIVE - [facility] 16:28:23 Date Recorded Body height Provider Name an d Address Organization Details Last Updated DateTime 11/05/2022 165.1 cm [facility] CASTILLO [address] [place], [address], [place] - [facility] 12/01/2022 20:03:21 Social [...] SNOMED-CT Code Diagnosis ICD10 Code Diagnosis Note [id number] [facility] [address] [address] [place] [address] 10/01/2022 14:29:12 10/01/2022 17:16:29 Pain of left hip joint 2287680128 73171 M25.552 S/P fall out of bed x 1 week ago. [id number] [facility] [address] [address] [place] [address] 11/05/2022 08:18:11 12/01/2022 20:03:56 Left without being seen [id number] 9102 Z53.21 Health Concerns Section Related Observation LastModified by Organization Detai ls LastModified Time None Recorded Concern Status LastModified by Organization Details LastModified Time None Recorded Advance Directives Directive None Recorded Payers Insurance Date Sequence Insurance Name Policy Number Policy Rios Covered Member ID Rios Member ID Guarantor Name 11/02/2022 2 [place] [facility] Dominique Almonte [id number] Dominique Almonte 11/05/2022 1 [place] DOS PRIOR TO 2022 - [facility] (MEDICAID) Dominique Almonte [id number] Dominique Almonte Notes Date Note Type Note [...] CALOS CASTILLO [address] [place], [address], [place] - [facility] 10/01/2022 17:47:49 OBGyn Episode No OBEpisode recorded.
== END 2025-03-20 17:36 | disposition home or self-care (01) ==
LOC: HO.HMCH 15:21
PROVIDERS: Visit Provider Internal Medicine
DX: R94.31 Abnormal electrocardiogram [ECG] [EKG] (principal); K21.9 Gastro-esophageal reflux disease without esophagitis; R79.89 Other specified abnormal findings of blood chemistry; M54.2 Cervicalgia; F41.1 Generalized anxiety disorder; Z72.0 Tobacco use; Z85.42 Personal history of malignant neoplasm of other parts of uterus; G47.00 Insomnia, unspecified; K59.01 Slow transit constipation

== ENCOUNTER → 2025-03-20 15:21 | Outpatient (BNVA) | payer OTHER, SELFPAY | PROVIDERS: Visit Provider Internal Medicine | DX: R94.31 Abnormal electrocardiogram [ECG] [EKG] (principal); K21.9 Gastro-esophageal reflux disease without esophagitis; R79.89 Other specified abnormal findings of blood chemistry; M54.2 Cervicalgia; F41.1 Generalized anxiety disorder; G47.00 Insomnia, unspecified; K59.01 Slow transit constipation; R11.2 Nausea with vomiting, unspecified; F90.9 Attention-deficit hyperactivity disorder, unspecified type; K76.0 Fatty (change of) liver, not elsewhere classified; F17.210 Nicotine dependence, cigarettes, uncomplicated; Z85.42 Personal history of malignant neoplasm of other parts of uterus; Z79.899 Other long term (current) drug therapy | CPT/HCPCS: 99212 ==

== ENCOUNTER 2025-03-22 12:12 | Outpatient (REF) | payer OTHER, SELFPAY ==
--- NOTE | 2025-03-22 12:16 | EEG_ITS ---
This is a 16 channel EEG with an EKG lead. Patient is reported awake during the tracing. Background EEG rhythm is 10-12 hertz 10-20 microvolt posteriorly lower amplitude fast anteriorly. Photic stimulation does not produce any significant driving. Hyperventilation is not performed. Cardiac lead does not reveal any significant abnormality. Some lead and muscle artifacts are noted. No sharp wave spikes or paroxysmal tendency noted. Impression: No significant abnormality noted on this EEG. MTDD
--- OUTSIDE RECORDS SUMMARY | 2025-03-22 12:45 | XMS_ITS | Clinical Summary ---
Author Organization [facility] Address [address] [place] [address] Care Team Providers Care Orthopedic Cast Specialist Name Role Phone David Graves MD Primary Care Provider [phone] Allergies Active Allergy Reactions Criticality Noted Date [...] Inactivated Comments 11/22/2024 11:07 AM Care Teams Orthopedic Cast Specialist Relationship Specialty Start Date End Date David Graves MD [address] [place] [address] Dr Aponte, CHALO [address] PCP - General Internal Medicine 11/22/24
--- OUTSIDE RECORDS SUMMARY | 2025-03-22 12:45 | XMS_ITS | Clinical Summary ---
Author Organization [facility] ity Address [address] [place] [address] Care Team Providers Care Bit Bender Name Role Phone Lilliana Mosqueda MD Primary [...] age to complete this topic Care Teams Bit Bender Relationship Specialty Start Date End Date Lilliana Mosqueda MD [address] [place] [address] PCP - General Family Medicine 05/31/19
--- OUTSIDE RECORDS SUMMARY | 2025-03-22 12:45 | XMS_ITS | Encounter Summary ---
Author Organization [facility] Address [address] [place] [address] Phone Care Team Providers Care Research Specialist Name Role Phone Lilliana Mosqueda MD Primary Care Provider [phone] Lilliana Mosqueda MD Unavailable [phone] Leora Avina MD Unavailable [phone] Bharath Orozco CNP Unavailable [phone] Lilliana Mosqueda MD Unavailable [phone] Deysi Poe RN Unavailable Encounter Details Date Type Department Care Team (Late st Contact Info) Description 02/11/2018 Procedure Pass [facility], Ct Scan - [address] [address] Social History Tobacco Use Types Packs/Day Years [...] on filedocumented in this encounter Care Teams Research Specialist Relationship Specialty Start Date End Date Lilliana Mosqueda MD PCP - General 06/15/17 Lilliana Mosqueda MD [address] [place] [address] Historical LMR Provider 06/19/17 2 Leora Avina MD [address] [place] [address] Historical LMR Provider 06/19/17 09/06/21 Bharath Orozco CNP [address] [place] [address] Historical LMR Provider 06/19/17 09/06/21 Lilliana Mosqueda MD [address] [place] [address] Insurance Assigned Provider 01/01/18 Deysi Poe, RN [address] [place] [address] iCMP Mental Health Technician 08/20/20 10/04/20 documented as of this encounter Additional Source Comments The information contained in this document represents components of the legal health record. It is not the complete legal health record.[facility]
--- OUTSIDE RECORDS SUMMARY | 2025-03-22 12:46 | XMS_ITS | Data Portability ---
Author Organization [facility], [address] Address [address] [place] [address] Assessment No assessment recorded. Plan of Treatment Reminders Order Date Submit Date Provider Last Modified By Organization Details Last Modified Time Details Appointments None recorded. Lab None recorded. Referral emergency medicine referral - Significant left hip pain - cannot ambulate - history of fracture as a child. Coming by EMS. 2022 023 [email or web address] 26 [facility] [address] [place] [address], [address], 3 07:26:15 Procedures None recorded. Surgeries None [...] pain tracking down the femur. 2022 023 [facility], [address] [facility], [place], [address], 3 19:26:28 Medication Orders None recorded. Patient TargetsNo targets recorded. Patient Instructions Encounter Date Encounter Id Patient Instructions Last Modified By Organization Details Last Modified Time 10/01/2022 [id number] Based on your ex am and presentation [...] unila teral No observ ation record ed. [email or web address] [facility] [address] [facility] [place], [address], 10/01/2022 20:31:21 Result Notes None recorded. Problems Name Problem SNOMED Code Status Onset Date Resolution Date Notes Provider Name and Address Organization Details Recorded Time Attention deficit hyperactivity disorder 224146554 Active 2022 Leonora holley, PA - [facility] 3 15:54:19 Bipolar disorder 92812241 Active 2022 [facility], [facility] - [facility] [...] Name and Address Organization Details Recorded Time 225382 Tylenol medicatio n Not available Not available Not available 10/01/2022 3 RxNorm Leonora holley, PA - [facility] 15:51:44 066591 ibuprofen medicatio n Not available Not available Not available 10/01/2022 5640 RxNorm Leonora holley, PA - [facility] 3 15:52:00 430675 Latuda medicatio n Not available Not available Not available 10/01/2022 97979 32 RxNorm Leonora holley, PA - [facility] 3 15:52:05 008264 aspirin medicatio n Not available Not available [...] /min 97.7 [degF] 165.1 cm 25.8 kg/m2 88616.8 2 g 109/76 mm[Hg] Leonora Hu PA - [facility] 3 16:28:23 Date Recorded Body height Provider Name an d Address Organization Details Last Updated DateTime 11/05/2022 165.1 cm CAL[facility] CASTILLO [facility] [place], [address], [place] - [facility] 12/01/2022 20:03:21 Social [...] unspecified formulation 01/25/2003 completed Leonora holley PA - [facility] 10/01/2022 15:50:52 Influenza, split virus, trivalent, PF 07/07/2015 completed Leonora Hu null, PA - [facility] 10/01/2022 15:50:52 Hep B, adult 01/25/2003 completed Leonora holley, PA - [facility] 10/01/2022 15:50:52 Hep B, adult 02/22/2003 completed Leonora Hu null, PA - [facility] 10/01/2022 15:50:52 Past Encounters Encounter ID Performer Location Encounter Start Date Encounter Closed Date Diagnosis/Indication Diagnosis SNOMED-CT Code Diagnosis ICD10 Code Diagnosis Note [id number] [facility] [address] [address] 10/01/2022 14:29:12 10/01/2022 17:16:29 Pain of left hip joint 8997657343 35961 M25.552 S/P fall out of bed x 1 week ago. [id number] [facility] [address] [facility] [address] [place] [address] 11/05/2022 08:18:11 12/01/2022 20:03:56 Left without being seen [id number] 9102 Z53.21 Health Concerns Section Related Observation LastModified by Organization Detai ls LastModified Time None Recorded Concern Status LastModified by Organization Details LastModified Time None Recorded Advance Directives Directive None Recorded Payers Insurance Date Sequence Insurance Name Policy Number Policy Rios Covered Member ID Rios Member ID Guarantor Name 11/02/2022 2 [place] [facility] Dominique Almonte [id number] Dominique Almonte 11/05/2022 1 [place] PRIOR TO 2022 - [facility] (MEDICAID) Dominique Almonte [id number] Dominique Almonte Notes Date Note Type Note Provider Name and Address Organization Details Recorded Time 3 text/html Thigh / HipReported by PatientHPIFor alleviating factors, patient reportsnothing helps(cannot take ibuprofen or tylenol. only child tylenol is what she is able to tolerate.). For associated symptoms, patient reportsweakness,numbness, tingling,swelling, andecchymosis(worsening hip pain into the femur and into the back. feeling a lot of pelvic pressure. trouble urinating now - has to force to urinate.). For source of patient information, patient reportsinformation obtained from patientandpatient arrived at urgent care in wheelchair. For location, patient reportsleft. For quality, patient reportsthrobbing,sharp, andworsening. For severity, patient reportssevereandpain level 10/10. For duration, patient reports1 weeks. For timing, patient reportsacute. For context, patient reportsfall(fell out of bed - rolled out and landed directly on the left hip. instant pain.). For aggravating factors, patient reportsstandingandwalking .The patient has a history of left hip [...] seeked care since the injury. [facility] [place], [address], [place] - [facility] 10/01/2022 17:47:49 OBGyn Episode No OBEpisode recorded.
== END 2025-03-22 12:13 | disposition home or self-care (01) ==
LOC: HO.NEURO 12:12
PROVIDERS: Visit Provider Nurse Practitioner Family
DX: R55 Syncope and collapse (principal); R56.9 Unspecified convulsions; G43.909 Migraine, unspecified, not intractable, without status migrainosus
CPT/HCPCS: 95816

== ENCOUNTER → 2025-03-22 12:16 | Outpatient (BNV) | payer OTHER, SELFPAY | PROVIDERS: Visit Provider Psychiatry & Neurology Neurology | DX: R55 Syncope and collapse (principal) | CPT/HCPCS: 95816 ==

== ENCOUNTER 2025-05-07 14:20 | Outpatient (REF) | payer OTHER, SELFPAY ==
--- NOTE | ~2025-05-07 | MM_ITS ---
EXAMINATION: DXA BONE DENSITY AXIAL HISTORY: M81.0 - Age-related osteoporosis without current pathological fracture TECHNIQUE: [employer] Dual energy absorptiometry (DEXA) of the lumbar spine, total left hip, and femoral neck was performed. COMPARISON: There are no prior studies for comparison. FINDINGS: The bone mineral density of the lumbar spine is 1.021 g/cm2, corresponding to a T-score of -1.3, and a Z-score of -1.5. This is indicative of osteopenia. The bone mineral density of the left total hip is 0.967 g/cm2, corresponding to a T-score of -0.3, and a Z-score of -0.2. This is indicative of normal bone mineral density. The bone mineral density of the left femoral neck is 1.034 g/cm2, corresponding to a T-score of 0.0, and a Z-score of 0.4. This is indicative of normal bone mineral density. FRACTURE RISK: The FRAX index suggests a risk of major osteoporotic fracture of 3.7%, and of hip fracture 0.1%. MM/XR DEXA axial skeleton IMPRESSION: Based on bone mineral density, and according to World Health Organization (WHO) criteria, the diagnosis is consistent with osteopenia. Statistically, 68% of repeat scans fall within 1 SD (+/- 0.010 g/cm2 for AP spine L1-L4) and 1 SD (+/- 0.012 g/cm2 for femur total) FRAX is a trademark of the [employer]'s [place] for Metabolic Bone Disease, a World Health Organization (WHO) Collaborating Center. Electronically signed by: Obi Jo MD 05/07/2025 03:01 PM EDT
--- OUTSIDE RECORDS SUMMARY | 2025-05-07 16:46 | XMS_ITS | Clinical Summary ---
Author Organization [facility] Address [address] [place] [address] Phone Care Team Providers Care Kier Pleater Name Role Phone Lilliana Mosqueda MD Primary Care Provider [phone] Allergies Active Allergy Reactions Criticality Noted Date Comments Varenicline 10/20/2017 Gabapentin Rash Low 02/11/2018 Medications dextroamphetami ne-amphetamine (ADDERALL) 20 mg Tab tablet 1 tablet in the morning Active ARIPiprazole (ABILIFY) 30 MG tablet 1 tablet Active clonazePAM (KLONOPIN) 1 MG tablet 1 tablet Active omeprazole (PRILOSEC) 20 MG capsule 1 capsules Active topiramate (TOPAMAX) 100 MG tablet 1 tablet Active venlafaxine (EFFEXOR) 75 MG tablet 1 tablet with food Active lisdexamfetamin e (VYVANSE) 60 MG capsule 1 capsule in the morning Active sucralfate (CARAFATE) 1 gram tablet Take 1 tablet (1 g total) by mouth 4 (four) times a day. 16 tablet 10/11/2017 Active promethazine (PHENERGAN) 25 MG tablet Take 1 tablet (25 mg total) by mouth every 6 (six) hours as needed for nausea. 12 tablet 10/11/2017 Active venlafaxine (EFFEXOR) 75 MG tablet 1 tablet with food Orally Twice a day Active topiramate (TOPAMAX) 100 MG tablet 1 tablet Orally Twice a day Active omeprazole (PRILOSEC) 20 MG capsule 1 capsules Orally Once a day Active clonazePAM (KLONOPIN) 1 MG tablet 1 tablet Orally Twice a day Active ARIPiprazole (ABILIFY) 30 MG tablet Take 30 mg by mouth daily. Active HYDROcodone-meena taminophen (NORCO) 5-325 mg per tablet Take 1 tablet by mouth every 6 (six) hours as needed for pain (specific location in comments). Pt. may request partial fill 12 tablet 02/11/2018 Active Social History Tobacco Use Types Packs/Day Years Used Date Smoking Tobacco: Every Day Cigarettes Smokeless Tobacco: Never Tobacco Cessation:Ready to Q uit: No Alcohol Use Standard Drinks/Week Comments Yes 0 (1 standard drink = 0.6 oz pur e alcohol) occasional Education Answer Date Recorded Are you interested in more education? Not on rain e 12/25/2022 Are you concerned about learning? Not on file 12/25/2022 No 12/25/2022 No 12/25/2022 Digital Access Answer Date Recorded No 01/25/2023 No 01/25/2023 Reliable internet access at home? Not on file 01/25/2023 Device with a working camera? Not on file Comments No Sex and Gender Information Value Date Recorded Sex Assigned at Female 02/11/2018 10:57 AM EDT Legal Sex Female 9:26 PM EDT Gender Identity Female 02/11/2018 10:57 AM EDT Sexual Orientation Straight 02/11/2018 10 :57 AM EDT Last Filed Vital Signs Vital Sign Reading Time Taken Comments Blood Pressure 110/71 08/10/2018 11:15 AM EST Pulse 67 08/10/2018 9:52 AM EST Temperature 36 C (96.8 F) 08/10/2018 9:52 AM EST Respiratory Rate 18 08/10/2018 11:15 AM EST Oxygen Saturation 97% 08/10/2018 11:04 AM EST Inhaled Oxygen Concentration - - Weight 81.6 kg (180 lb) 08/10/2018 9:52 AM EST Height 165.1 cm (5' 5 ) 08/10/2018 9:52 AM EST Body Mass Index 29.95 08/10/2018 9:52 AM EST Plan of Treatment Health Maintenance Due Date Last Done Comments DEPRESSION SCREENING 1989 SMOKING Hx and SMOKELESS TOB ACCO SCREENING 1990 HEPATITIS C SCREENING 1995 HIV ONE-TIME SCREENING (18-6 5 YEARS) 1995 PNEUMOCOCCAL VACCINES (0-49 years) (1 of 2 - PCV) 1996 PAP SMEAR 1998 Adult Td,Tdap Booster 01/25/2013 01/25/2003 MAMMOGRAM 2017 COLOGUARD 2022 FIT TEST 2022 FOBT 2022 SIGMOIDOSCOPY 2022 VIRTUAL COLONOSCOPY 2022 LIPID PANEL 01/06/2024 01/05/2019 INFLUENZA VACCINE (#1) 2025 07/07/2015 COVID-19 VACCINE (1 - 2023-2 5 season) 2025 COLONOSCOPY 10/20/2027 10/20/2017 COLORECTAL CANCER SCREENING 10/20/2027 HEPATITIS A VACCINES Aged Out No long er eligible based on patient's age to complete this topic HIB VACCINES Aged Out No longer eligi ble based on patient's age to complete this topic MENINGOCOCCAL VACCINES (ACWY) Aged Out No longer eligible based on patient's age to complete this topic MENINGOCOCCAL VACCINES (B) Aged Out N o longer eligible based on patient's age to complete this topic Medical Devices Not on file Procedures Procedure Name Priority Date/Time Associated Diagnosis Comments ENDOSCOPY, COLON 10/20/2017 1:11 PM EST from Last 3 Months or Most Recently Relevant to Health Maintenance Results * ENDOSCOPY, COLON (10/20/2017 1:11 PM EST) Narrative Transcriptions Jackson Cody MD - 10/20/2017 1:11 PM EST Patient Name: Dominique Almonte Attending MD:: JACKSON CODY MD Procedure Date: 10/20/2017 1:11 PM Date of : 1975 Age: 42 Admit Type: Outpatient Gender: Female Room: [place] [address] Referring MD: Lilliana Mosqueda MD Exam Type: Colonoscopy Indications: Chronic diarrhea Medications: Sedation Required Anesthesia Staff Assistance Procedure: Informed consent was obtained from the patient after discussion of the indications, limitations,alternatives, benefits, and risks of the procedure. Risksspecifically discussed include but are not limited to medication reactions, missed lesions, bleeding, perforation, orthe need for emergent surgery. Throughout the procedure, the patient's blood pressure, pulse, end-tidal CO2, and oxygen saturations were monitored continuously. The Olympus pediatric colonoscope PCF 160AL #3 was introduced through the anus and advanced to theterminal ileum. The colonoscopy was performed withoutdifficulty. The patient tolerated the procedure well. The qualityof the bowel preparation was good. Complications: No immediate complications. Estimated blood loss:Minimal. Findings: The perianal and digital rectal examinations werenormal. The colon (entire examined portion) appeared normal. Biopsies were taken with a cold forceps forhistology. The terminal ileum appeared normal. Biopsies were taken with a cold forceps for histology. Internal hemorrhoids were found during retroflexion.The hemorrhoids were mild. Impression: - The entire examined colon is normal. Biopsied. - The examined portion of the ileum was normal.Biopsied. - Internal hemorrhoids. Recommendation: - Discharge patient to home (ambulatory). - Await pathology results. - Return to GI office as previously scheduled. JACKSON CODY MD 10/20/2017 1:52:03 PM This report has been signed electronically. Number of Addenda: 0 Note Initiated On: 10/20/2017 1:11 PM Procedure Code(s): --- Professional --- 90838, Colonoscopy, flexible; with biopsy, single or multiple --- Technical --- 79914, Colonoscopy, flexible; with biopsy, single or multiple Diagnosis Code(s): --- Professional --- K64.8, Other hemorrhoids K52.9, Noninfective gastroenteritis and colitis, unspecified --- Technical --- K64.8, Other hemorrhoids K52.9, Noninfective gastroenteritis and colitis, unspecified CPT copyright 2016 [employer]. All rights reserved. The codes documented in this report are preliminary and upon associate publisher reviewmay be revised to meet current compliance requirements. [address] [place] [address] Lilliana Mosqueda MD GI PROCEDURE ORDERABLES Final Result from Last 3 Months or Most Recently Relevant to Health Maintenance Insurance [facility]CO [facility] [place] [address] [place] [address] [place] [address] [address] [place] [address] [place] [id number] Care Teams Kier Pleater Relationship Specialty Start Date End Date Lilliana Mosqueda MD [email or web address] PCP - General 06/15/17 Additional Source Comments The information contained in this document represents components of the legal health record. It is not the complete legal health record.[facility]
--- OUTSIDE RECORDS SUMMARY | 2025-05-07 16:46 | XMS_ITS | Clinical Summary ---
Author Organization [facility] ity Address [address] [place] [address] Care Team Providers Care Recruiting Associate Name Role Phone Lilliana Mosqueda MD Primary [...] - 19+ 3-dose series) 07/28/2003 02/22/2003, 01/25/2003 Colorectal Cancer Screening: Colonoscopy 07/02/2024 HIV Screening 07/02/2024 Hepatitis C Screening 07/02/2024 Social Influencers of Health Screening 07/02/2024 Depression Screening 08/30/2024 COVID-19 Vaccine ( - 2023-2 5 season) 2025 Influenza Vaccine (#1) 2025 HIB Vaccines Aged [...] age to complete this topic Care Teams Recruiting Associate Relationship Specialty Start Date End Date Lilliana Mosqueda MD [address] [place] [phone] PCP - General Family Medicine 05/31/19
--- OUTSIDE RECORDS SUMMARY | 2025-05-07 16:46 | XMS_ITS | Encounter Summary ---
Author Organization [facility] Address [address] [place] [address] Phone Care Team Providers Care Science Center Display Builder Name Role Phone Lilliana Mosqueda MD Primary Care Provider [phone] Lilliana Mosqueda MD Unavailable [phone] Leora Avina MD Unavailable [phone] Bharath Orozco CNP Unavailable [phone] Lilliana Mosqueda MD Unavailable [phone] Deysi Poe RN Unavailable Encounter Details Date Type Department Care Team (Late st Contact Info) Description 02/11/2018 Procedure Pass [facility], Ct Scan - [address] [address] Social History Tobacco Use Types Packs/Day Years [...] on filedocumented in this encounter Care Teams Science Center Display Builder Relationship Specialty Start Date End Date Lilliana Mosqueda MD PCP - General 06/15/17 Lilliana Mosqueda MD [address] [place] [address] Historical LMR Provider 06/19/17 2 Leora Avina MD [address] [place] [address] Historical LMR Provider 06/19/17 09/06/21 Bharath Orozco CNP [address] [place] [address] Historical LMR Provider 06/19/17 09/06/21 Lilliana Mosqueda MD [address] [place] [address] Insurance Assigned Provider 01/01/18 Deysi Poe, GABRIELLA [address] [place] [address] iCMP Rn Care Transition 08/20/20 10/04/20 documented as of this encounter Additional Source Comments The information contained in this document represents components of the legal health record. It is not the complete legal health record.[facility]
--- OUTSIDE RECORDS SUMMARY | 2025-05-07 16:46 | XMS_ITS | Encounter Summary ---
Author Organization [facility] Address [address] [place] [address] Phone Care Team Providers Care Energy Assistant Name Role Phone Lilliana Mosqueda MD Primary Care Provider [phone]- [phone] Lilliana Mosqueda MD Unavailable [phone] Leora Avina MD Unavailable [phone] Bhartah Orozco CNP Unavailable [phone] Lilliana Mosqueda MD Unavailable [phone] Deysi Poe RN Unavailable Reason for Referral * Outpatient Procedure - Closed Specialty Diagnoses / Procedures Referred By Jv bass Referred To Contact Radiology Diagnoses Early satiety Procedures NM Gastric Emptying Linda Segura PA Phone: tel: fax: Referral ID Status Reason Start Date Expiration Date Visits Re quested Visits Authorized [id number] Closed 11/26/2017 11/26/2018 1 1 Encounter Details Date Type Department Care Team (Late st Contact Info) Description 11/26/2017 Ancillary Orders Virtual Department [address] [place] [address] Linda Segura PA [address] [place] [phone] Early satiety Social History Tobacco Use Types Packs/Day Years [...] on file documented as of this encounter Results * NM GASTRIC EMPTYING SOLID PHASE (12/02/2017 9:41 AM EDT) Anatomical Region Laterality Modality Abdomen, Pelvis Nuclear Medicine 12/02/2017 9:56 AM EDT Impressions 12/02/2017 9:58 AM EDT Nondiagnostic study due to vomiting of the egg meal before the one hour time point. POS - [id number] Narrative 12/02/2017 9:58 AM EDT One millicurie of Tc-99m labeled sulfur colloid was administered in standard egg meal. Patient was unable to keep the material within the stomach, however and vomited before time point evaluation could be made. Procedure Note Joseph Rosas MD - 12/02/2017 One millicurie of Tc-99m labeled sulfur colloid was administered instandard egg meal. Patient was unable to keep the material within thestomach, however and vomited before time point evaluation could be made. IMPRESSION: Nondiagnostic study due to vomiting of the egg meal before the one hourtime point. POS - [id number] us Linda LIVE IMG NM ABDOMEN Final Resul t documented in this encounter Visit Diagnoses Diagnosis Early satiety Early satiety documented in this encounter Care Teams Energy Assistant Relationship Specialty Start Date End Date Lilliana Mosqueda MD PCP - General 06/15/17 Lilliana Mosqueda MD [address] [place] [address] Historical LMR Provider 06/19/17 2 Leora Avina MD [address] [address] Historical LMR Provider 06/19/17 09/06/21 Bharath Orozco DISTRIBUTION ENGINEER [address] [place] [address] Historical LMR Provider 06/19/17 09/06/21 Lilliana Mosqueda MD [address] [place] [address] Insurance Assigned Provider 01/01/18 Deysi Poe RN [address] [address] iCMP Slot Service Specialist 08/20/20 10/04/20 documented as of this encounter Additional Source Comments The information contained in this document represents components of the legal health record. It is not the complete legal health record.[facility]
--- OUTSIDE RECORDS SUMMARY | 2025-05-07 16:46 | XMS_ITS | Clinical Summary ---
Author Organization [facility] Address [address] [place] [address] Care Team Providers Care Hem Inspector Name Role Phone David Graves MD Primary Care Provider [phone]- [phone] Allergies Active Allergy Reactions Criticality Noted Date [...] Inactivated Comments 11/22/2024 11:07 AM Care Teams Hem Inspector Relationship Specialty Start Date End Date David Graves MD [address] [place] [address] Dr Aponte, CHALO [address] PCP - General Internal Medicine 11/22/24
--- OUTSIDE RECORDS SUMMARY | 2025-05-07 16:46 | XMS_ITS | Encounter Summary ---
Author Organization [facility] Address [address] [place] [address] Phone Care Team Providers Care Fire Behavior Analyst Name Role Phone Lilliana Mosqueda MD Primary Care Provider [phone]- [phone] Lilliana Mosqueda MD Unavailable [phone] Leora Avina MD Unavailable [phone] Bharath Orozco CNP Unavailable [phone] Lilliana Mosqueda MD Unavailable Deysi Poe RN Unavailable Encounter Details Date Type Department Care Team (Late st Contact Info) Description 02/09/2018 Ancillary Orders Virtual Department [address] [place] [address] Jose Bland, CALOS [address] [place] [phone] [email or web address] Abdominal pain, unspecified abdominal location Social History Tobacco Use Types Packs/Day Years [...] documented as of this encounter Visit Diagnoses Diagnosis Abdominal pain, unspecified abdominal location documented in this encounter Care Teams Fire Behavior Analyst Relationship Specialty Start Date End Date Lilliana Mosqueda MD PCP - General 06/15/17 Lilliana Mosqueda MD [address] [place] [address] Historical LMR Provider 06/19/17 2 Leora Avina MD [address] [place] [address] Historical LMR Provider 06/19/17 09/06/21 Bharath Orozco CNP [address] [place] [address] Historical LMR Provider 06/19/17 09/06/21 Lilliana Mosqueda MD [address] [place] [address] Insurance Assigned Provider 01/01/18 Deysi Poe, RN [address] [place] [address] iCMP Loading Machine Tool Setter 08/20/20 10/04/20 documented as of this encounter Additional Source Comments The information contained in this document represents components of the legal health record. It is not the complete legal health record.[facility]
--- OUTSIDE RECORDS SUMMARY | 2025-05-07 16:46 | XMS_ITS | Encounter Summary ---
Author Organization [facility] Address [address] [place] [address] Phone Care Team Providers Care Machine Wood Sander Name Role Phone Lilliana Mosqueda MD Primary Care Provider [phone]- [phone] Lilliana Mosqueda MD Unavailable [phone] Leora Avina MD Unavailable [phone] Bharath Orozco CNP Unavailable [phone] Lilliana Mosqueda MD Unavailable [phone] Deysi Poe RN Unavailable Encounter Details Date Type Department Care Team (Late st Contact Info) Description 10/11/2017 Procedure Pass [facility], Ct Scan - [address] [address] Social History Tobacco Use Types Packs/Day Years [...] on filedocumented in this encounter Care Teams Machine Wood Sander Relationship Specialty Start Date End Date Lilliana Mosqueda MD PCP - General 06/15/17 Lilliana Mosqueda MD [address] [place] [address] Historical LMR Provider 06/19/17 2 Leora Avina MD [address] [place] [address] Historical LMR Provider 06/19/17 09/06/21 Bharath Orozco CNP [address] [place] [address] Historical LMR Provider 06/19/17 09/06/21 Lilliana Mosqueda MD [address] [place] [address] Insurance Assigned Provider 01/01/18 Deysi Poe, GABRIELLA [address] [place] [address] iCMP Electric Range Assembler 08/20/20 10/04/20 documented as of this encounter Additional Source Comments The information contained in this document represents components of the legal health record. It is not the complete legal health record.[facility]
--- OUTSIDE RECORDS SUMMARY | 2025-05-07 16:46 | XMS_ITS | Encounter Summary ---
Author Organization [facility] Address [address] [place] [address] Phone Care Team Providers Care Control Officer Name Role Phone Lilliana Mosqueda MD Primary Care Provider [phone]- [phone] Lilliana Mosqueda MD Unavailable [phone] Leora Avina MD Unavailable [phone] Bharath Orozco CNP Unavailable [phone] Lilliana Mosqueda MD Unavailable [phone] Deysi Poe RN Unavailable Encounter Details Date Type Department Care Team (Late st Contact Info) Description 10/20/2017 Procedure Pass [facility] Endoscopy Admitting Dept Virtual Department [address] [place] [address] Social History Tobacco Use Types Packs/Day Years [...] on filedocumented in this encounter Care Teams Control Officer Relationship Specialty Start Date End Date Lilliana Mosqueda MD PCP - General 06/15/17 Lilliana Mosqueda MD [address] [place] [address] Historical LMR Provider 06/19/17 2 Leora Avina MD [address] [place] [address] Historical LMR Provider 06/19/17 09/06/21 Bharath Orozco CONCIERGE [address] [place] [address] Historical LMR Provider 06/19/17 09/06/21 Lilliana Mosqueda MD [address] [place] [address] Insurance Assigned Provider 01/01/18 Deysi Poe, GABRIELLA [address] [place] [address] iCMP Shipping And Receiving Supervisor 08/20/20 10/04/20 documented as of this encounter Additional Source Comments The information contained in this document represents components of the legal health record. It is not the complete legal health record.[facility]
--- OUTSIDE RECORDS SUMMARY | 2025-05-07 16:46 | XMS_ITS | Encounter Summary ---
Author Organization [facility] Address [address] [place] [address] Phone Care Team Providers Care Diamond Die Maker Name Role Phone Lilliana Mosqueda MD Primary Care Provider [phone] Lilliana Mosqueda MD Unavailable [phone] Leora Avina MD Unavailable [phone] Bharath Orozco CNP Unavailable [phone] Lilliana Mosqueda MD Unavailable [phone] Deysi Poe RN Unavailable Encounter Details Date Type Department Care Team (Late st Contact Info) Description 08/10/2018 Procedure Pass [facility] Endoscopy Admitting Dept Virtual Department [address] [place] [address] Social History Tobacco Use Types Packs/Day Years Used Date Smoking Tobacco: Every Day Cigarettes Smokeless Tobacco: Never Alcohol Use Standard Drinks/Week Comments Yes 0 (1 standard drink = 0.6 oz pur e alcohol) occasional Comments No Sex and Gender Information Value [...] on filedocumented in this encounter Care Teams Diamond Die Maker Relationship Specialty Start Date End Date Lilliana Mosqueda MD PCP - General 06/15/17 Lilliana Mosqueda MD [address] [place] [address] Historical LMR Provider 06/19/17 2 Leora Avina MD [address] [place] [address] Historical LMR Provider 06/19/17 09/06/21 Bharath Orozco CNP [address] [place] [address] Historical LMR Provider 06/19/17 09/06/21 Lilliana Mosqueda MD [address] [place] [address] Insurance Assigned Provider 01/01/18 Deysi Poe, GABRIELLA [address] [place] [address] iCMP Substation Electrician 08/20/20 10/04/20 documented as of this encounter Additional Source Comments The information contained in this document represents components of the legal health record. It is not the complete legal health record.[facility]
== END 2025-05-07 14:21 | disposition home or self-care (01) ==
LOC: HO.MAMMO 14:20
PROVIDERS: PCP Internal Medicine; Visit Provider Internal Medicine
DX: M81.0 Age-related osteoporosis without current pathological fracture (principal); Z85.42 Personal history of malignant neoplasm of other parts of uterus
CPT/HCPCS: 77080

== ENCOUNTER → 2025-05-07 14:30 | Outpatient (BNV) | payer OTHER, SELFPAY | PROVIDERS: PCP Internal Medicine; Visit Provider Radiology Diagnostic Radiology | DX: E28.39 Other primary ovarian failure (principal) | CPT/HCPCS: 77080 ==

== ENCOUNTER → 2025-05-08 13:04 | Outpatient (REF) | payer OTHER, SELFPAY ==
--- NOTE | 2025-05-08 13:07 | CA_ITS ---
Transthoracic Echocardiogram Patient (Last, First, Middle): Dominique Almonte, Gender: F Date of : 1975 Age: 49 Procedure Date: 05/08/2025 Procedure Type: Transthoracic Echocardiogram Location: OP Height: 165.1 cm Weight: 81.65 kg BSA: 1.89 m2 Heart Rate: bpm BP: 130 / 90 mmHg Deputy Sheriff Building Guard: TO Referring MD: Yoel Aguirre MD Books Salesperson: Sanya Arechiga MD Symptoms: R94.31 - Abnormal electrocardiogram [ECG] [EKG] Study Quality: Fair ECG Rhythm: Sinus Conclusions: - Low normal LV ejection fraction 50-55% Findings Procedure Information The patient declines contrast. Left Ventricle Normal left ventricular cavity size. There is normal left ventricular wall thickness. The left ventricular systolic function is low normal. The visually estimated ejection fraction is between 50-55%. Spectral Doppler is indicative of a normal filling pattern. Prior Study Comparison Changes noted compared to prior study dated: 12/21/2024. LV ejection fraction has marginally improved, could be due to technical factors Measurements 2D Linear Measurements IVSd: 0.85 0.6-0.9/0.6-1.0 cm LVIDd: 4.72 3.9-5.3/4.2-5.9 cm LVIDd Index: 2.50 2.4-3.2/2.2-3.1 cm/m2 LVIDs: 3.04 2.0-3.6 cm LVPWd: 0.79 0.7-1.1 cm LA Diam: 3.00 2.7-3.8/3.0-4.0 cm LAIDs Index: 1.59 1.5-2.3 cm/m2 LV Mass: 158.57 67-162/88-224 g LV Mass Index: 83.90 43-95/49-115 g/m2 LVOT Diam: 2.30 3.0+(-)1.3 cm 2D Systolic Function EF 4C: 48.40 >55% EF 2C: 53.40 >55% EF BiP: 50.60 >55% Mitral Valve MV Pk E: 0.54 MV PK A: 0.43 MV Decel Time: 162.00 E/A: 1.30 E'Lateral: 10.20 E'Medial: 6.64 E/E' Med: 8.10 E/E' Lat: 5.30 PHT: 48.00 MVA PHT: 4.58 Decel Rankin: 3.30 LVOT LVOT Pk Chris: 1.05 LVOT Mn Chris: 0.71 LVOT VTI: 0.21 LVOT Pk Grad: 4.00 LVOT Mn Grad: 2.00 LVOT Diam: 2.30 LVOT Area: 4.15 Diastolic Function MV Pk E: 0.54 MV Pk A: 0.43 E/A: 1.30 E'Medial: 6.64 E/E' Med: 8.10 E' Laterial: 10.20 E/E' Lat: 5.30 Tricuspid Valve RA Press: 3.00 Updated in Other Vendor System with Status of Final Sanya Arechiga MD electronically signed on 05/08/2025 2:41:27 PM with status of Final
--- OUTSIDE RECORDS SUMMARY | 2025-05-08 15:20 | XMS_ITS | Clinical Summary ---
Author Organization [facility] Address [address] [place] [address] Phone Care Team Providers Care Fashion Editor Name Role Phone Lilliana Mosqueda MD Primary Care Provider [phone]- [phone] Allergies Active Allergy Reactions Criticality Noted Date [...] 40 Admit Type: Outpatient Gender: Female Room: [place] [address] Referring MD: Lilliana Mosqueda MD Exam Type: [...] 1:11 PM Procedure Code(s): --- Professional --- 71674, Colonoscopy, flexible; with biopsy, single or multiple --- Technical --- 42251, Colonoscopy, flexible; with biopsy, single or multiple Diagnosis Code(s): --- Professional --- K64.8, Other hemorrhoids K52.9, Noninfective gastroenteritis and colitis, unspecified --- Technical --- K64.8, Other hemorrhoids K52.9, Noninfective gastroenteritis and colitis, unspecified CPT copyright 2016 [employer]. All rights reserved. The codes documented in this report are preliminary and upon analytical data scientist reviewmay be revised to meet current compliance requirements. [address] [place] [address] Lilliana Mosqueda MD GI PROCEDURE ORDERABLES Final Result from Last 3 Months or Most Recently Relevant to Health Maintenance Insurance ACO [facility] [place] [address] [place] [address] [place] [address] [address] [place] [phone] Care Teams Fashion Editor Relationship Specialty Start Date End Date Lilliana Mosqueda MD [email or web address] PCP - General 06/15/17 Additional Source Comments The information contained in this document represents components of the legal health record. It is not the complete legal health record.[facility]
--- OUTSIDE RECORDS SUMMARY | 2025-05-08 15:20 | XMS_ITS | Encounter Summary ---
Author Organization [facility] Address [address] [place] [address] Phone Care Team Providers Care Stand Up Comedian Name Role Phone Lilliana Mosqueda MD Primary Care Provider [phone]- [phone] Lilliana Mosqueda MD Unavailable [phone] Leora Avina MD Unavailable [phone] Bharath Orozco CNP Unavailable [phone] Lilliana Mosqueda MD Unavailable [phone] Deysi Poe RN Unavailable Encounter Details Date Type Department Care Team (Late st Contact Info) Description 10/20/2017 Procedure Pass [facility] Endoscopy Admitting Dept Virtual Department [address] [place] [address] Social History Tobacco Use Types Packs/Day Years [...] on filedocumented in this encounter Care Teams Stand Up Comedian Relationship Specialty Start Date End Date Lilliana Mosqueda MD PCP - General 06/15/17 Lilliana Mosqueda MD [address] [place] [address] Historical LMR Provider 06/19/17 2 Leora Avina MD [address] [place] [address] Historical LMR Provider 06/19/17 09/06/21 Bharath Orozco POLYMERIZATION HELPER [address] [place] [address] Historical LMR Provider 06/19/17 09/06/21 Lilliana Mosqueda MD [address] [place] [address] Insurance Assigned Provider 01/01/18 Deysi Poe, GABRIELLA [address] [place] [address] iCMP Wraparound Facilitator 08/20/20 10/04/20 documented as of this encounter Additional Source Comments The information contained in this document represents components of the legal health record. It is not the complete legal health record.[facility]
--- OUTSIDE RECORDS SUMMARY | 2025-05-08 15:20 | XMS_ITS | Clinical Summary ---
Author Organization [facility] Address [address] [place] [address] Care Team Providers Care Clarifier Name Role Phone David Graves MD Primary Care Provider +1- [phone] Allergies Active Allergy Reactions Criticality Noted Date [...] Inactivated Comments 11/22/2024 11:07 AM Care Teams Clarifier Relationship Specialty Start Date End Date David Graves MD [address] [place] [address] Dr Aponte, CHALO [address] PCP - General Internal Medicine 11/22/24
--- OUTSIDE RECORDS SUMMARY | 2025-05-08 15:20 | XMS_ITS | Clinical Summary ---
Author Organization [employer] [facility] ity Address [address] [place] [address] Care Team Providers Care Advanced Practice Nurse Psychotherapist Name Role Phone Lilliana Mosqueda MD Primary [...] age to complete this topic Care Teams Advanced Practice Nurse Psychotherapist Relationship Specialty Start Date End Date Lilliana Mosqueda MD [address] [place] [phone] PCP - General Family Medicine 05/31/19
--- OUTSIDE RECORDS SUMMARY | 2025-05-08 15:20 | XMS_ITS | Encounter Summary ---
Author Organization [facility] Address [address] [place] [address] Phone Care Team Providers Care Life Sciences Director Name Role Phone Lilliana Mosqueda MD Primary Care Provider [phone]- [phone] Lilliana Mosqueda MD Unavailable Leora Avina MD Unavailable Bharath Orozco CNP Unavailable [phone] Lilliana Mosqueda MD Unavailable [phone] Deysi Poe RN Unavailable Encounter Details Date Type Department Care Team (Late st Contact Info) Description 02/09/2018 Ancillary Orders Virtual Department [address] [place] [address] Jose Bland, CALOS [address] [place] [phone] [email or web address] Abdominal pain, unspecified abdominal location Social [...] location documented in this encounter Care Teams Life Sciences Director Relationship Specialty Start Date End Date Lilliana Mosqueda MD PCP - General 06/15/17 Lilliana Mosqueda MD [address] [place] [address] Historical LMR Provider 06/19/17 2 Leora Avina MD [address] [place] [address] Historical LMR Provider 06/19/17 09/06/21 Bharath Orozco CNP [address] [place] [address] Historical LMR Provider 06/19/17 09/06/21 Lilliana Mosqueda MD [address] [place] [address] Insurance Assigned Provider 01/01/18 Deysi Poe, RN [address] [place] [address] [facility] Rolled Materials Worker 08/20/20 10/04/20 documented as of this encounter Additional Source Comments The information contained in this document represents components of the legal health record. It is not the complete legal health record.[facility]
--- OUTSIDE RECORDS SUMMARY | 2025-05-08 15:20 | XMS_ITS | Encounter Summary ---
Author Organization [facility] Address [address] [place] [address] Phone Care Team Providers Care Automobile Sales Representative Name Role Phone Lilliana Mosqueda MD Primary Care Provider [phone]- [phone] Lilliana Mosqueda MD Unavailable [phone] Leora Avina MD Unavailable [phone] Bharath Orozco CNP Unavailable [phone] Lilliana Mosqueda MD Unavailable [phone] Deysi Poe RN Unavailable Reason for Referral * Outpatient Procedure - Closed Specialty Diagnoses / Procedures Referred By Jv bass Referred To Contact Radiology Diagnoses Early satiety Procedures NM Gastric Emptying Linda Segura PA Phone: tel: fax: Referral ID Status Reason Start Date Expiration Date Visits Re quested Visits Authorized [id number] Closed 11/26/2017 11/26/2018 1 1 Encounter Details Date Type Department Care Team (Late st Contact Info) Description 11/26/2017 Ancillary Orders Virtual Department [address] [place] [address] Linda Segura PA [address] [place] [address] Early satiety Social History Tobacco Use Types [...] the one hour time point. POS - [id number] Narrative 12/02/2017 9:58 AM EDT One millicurie [...] before the one hourtime point. POS - [id number] us Linda LIVE IMG NM ABDOMEN Final Resul t documented in this encounter Visit Diagnoses Diagnosis Early satiety Early satiety documented in this encounter Care Teams Automobile Sales Representative Relationship Specialty Start Date End Date Lilliana Mosqueda MD PCP - General 06/15/17 Lilliana Mosqueda MD [address] [place] [address] Historical LMR Provider 06/19/17 2 Leora Avina MD [address] [address] Historical LMR Provider 06/19/17 09/06/21 Bharath Orozco CLINICAL LABORATORY AIDES TEACHER [address] [address] Historical LMR Provider 06/19/17 09/06/21 Lilliana Mosqueda MD [address] [place] [address] Insurance Assigned Provider 01/01/18 Deysi Poe, GABRIELLA [address] [place] [address] iCMP Blind Eyeletter 08/20/20 10/04/20 documented as of this encounter Additional Source Comments The information contained in this document represents components of the legal health record. It is not the complete legal health record.[facility]
--- OUTSIDE RECORDS SUMMARY | 2025-05-08 15:20 | XMS_ITS | Encounter Summary ---
Author Organization [facility] Address [address] [place] [address] Phone Care Team Providers Care Stevedoring Superintendent Name Role Phone Lilliana Mosqueda MD Primary Care Provider [phone]- [phone] Lilliana Mosqueda MD Unavailable [phone] Leora Avina MD Unavailable [phone] Bharath Orozco CNP Unavailable [phone] Lilliana Mosqueda MD Unavailable [phone] Deysi Poe RN Unavailable Encounter Details Date Type Department Care Team (Late st Contact Info) Description 02/11/2018 Procedure Pass [facility], Ct Scan - [address] [address] Social History Tobacco Use Types Packs/Day Years [...] on filedocumented in this encounter Care Teams Stevedoring Superintendent Relationship Specialty Start Date End Date Lilliana Mosqueda MD PCP - General 06/15/17 Lilliana Mosqueda MD [address] [place] [address] Historical LMR Provider 06/19/17 2 Leora Avina MD [address] [place] [address] Historical LMR Provider 06/19/17 09/06/21 Bharath Orozco CNP [address] [place] [address] Historical LMR Provider 06/19/17 09/06/21 Lilliana Mosqueda MD [address] [place] [address] Insurance Assigned Provider 01/01/18 Deysi Poe, RN [address] [place] [address] iCMP Nuclear Powerplant Mechanic 08/20/20 10/04/20 documented as of this encounter Additional Source Comments The information contained in this document represents components of the legal health record. It is not the complete legal health record.[facility]
--- OUTSIDE RECORDS SUMMARY | 2025-05-08 15:20 | XMS_ITS | Encounter Summary ---
Author Organization [facility] Address [address] [place] [address] Phone Care Team Providers Care Canoe Inspector Final Name Role Phone Lilliana Mosqueda MD Primary Care Provider [phone]- [phone] Lilliana Mosqueda MD Unavailable [phone] Leora Avina MD Unavailable [phone] Bharath Orozco CNP Unavailable [phone] Lilliana Mosqueda MD Unavailable [phone] Deysi Poe RN Unavailable Encounter Details Date Type Department Care Team (Late st Contact Info) Description 10/11/2017 Procedure Pass [facility], Ct Scan - [address] [address] Social History Tobacco Use Types Packs/Day Years [...] on filedocumented in this encounter Care Teams Canoe Inspector Final Relationship Specialty Start Date End Date Lilliana Mosqueda MD PCP - General 06/15/17 Lilliana Mosqueda MD [address] [place] [address] Historical LMR Provider 06/19/17 2 Leora Avina MD [address] [place] [address] Historical LMR Provider 06/19/17 09/06/21 Bharath Orozco CNP [address] [place] [address] Historical LMR Provider 06/19/17 09/06/21 Lilliana Mosqueda MD [address] [place] [address] Insurance Assigned Provider 01/01/18 Deysi Poe, RN 10 [place] [address] iCMP Transfer Pumper 08/20/20 10/04/20 documented as of this encounter Additional Source Comments The information contained in this document represents components of the legal health record. It is not the complete legal health record.[facility]
--- OUTSIDE RECORDS SUMMARY | 2025-05-08 15:20 | XMS_ITS | Encounter Summary ---
Author Organization [facility] Address [address] [place] [address] Phone Care Team Providers Care Maintenance Groundskeeper Name Role Phone Lilliana Mosqueda MD Primary Care Provider [phone] Lilliana Mosqueda MD Unavailable [phone] Leora Avina MD Unavailable [phone] Bharath Orozco CNP Unavailable [phone] Lilliana Mosqueda MD Unavailable [phone] Deysi Poe RN Unavailable Encounter Details Date Type Department Care Team (Late st Contact Info) Description 08/10/2018 Procedure Pass [facility]oscopy Admitting Dept Virtual Department [address] [place] [address] Social History Tobacco Use Types Packs/Day Years [...] on filedocumented in this encounter Care Teams Maintenance Groundskeeper Relationship Specialty Start Date End Date Lilliana Mosqueda MD PCP - General 06/15/17 Lilliana Mosqueda MD [address] [place] [address] Historical LMR Provider 06/19/17 2 Leora Avina MD [address] [place] [address] Historical LMR Provider 06/19/17 09/06/21 Bharath Orozco CNP [address] [place] [address] Historical LMR Provider 06/19/17 09/06/21 Lilliana Mosqueda MD [address] [place] [address] Insurance Assigned Provider 01/01/18 Deysi Poe, GABRIELLA [address] [place] [address] iCMP Business Consult 08/20/20 10/04/20 documented as of this encounter Additional Source Comments The information contained in this document represents components of the legal health record. It is not the complete legal health record.[facility]
== END ==
LOC: HO.CARD 13:04
PROVIDERS: PCP Internal Medicine; Visit Provider Internal Medicine
DX: R94.31 Abnormal electrocardiogram [ECG] [EKG] (principal)
CPT/HCPCS: 93246; 93308

== ENCOUNTER → 2025-05-08 13:07 | Outpatient (BNV) | payer OTHER, SELFPAY | PROVIDERS: PCP Internal Medicine; Visit Provider Internal Medicine Cardiovascular Disease | DX: R94.31 Abnormal electrocardiogram [ECG] [EKG] (principal) | CPT/HCPCS: 93308; 93321 ==

== ENCOUNTER 2025-05-29 15:39 | Outpatient (AMB) | payer OTHER, SELFPAY ==
[2025-05-29 15:49] VITALS: BP 110/78; PULSE 94; TEMP 36.1; O2SAT 96; BMI 28.8
--- NOTE | 2025-05-29 15:49 | A.OFFPC_ITS ---
Vital Signs 05/29/25 15:49 Height 5 ft 5 in Weight 173 lb 6 oz BMI 28.8 BP 110/78 Blood Pressure Location Lt brachial Position Sitting Pulse 94 Pulse Source Pulse Oximeter Temp 97.0 F Temp Source Temporal Artery Scan Pulse Oximetry (%) 96 Oxygen Delivery Method Room Air Intake Visit Reasons: cough/fever/vomiting Accompanied by: Significant Other Allergies Penicillins Allergy (Severe, Verified 03/20/25 15:25) Anaphylaxis acetaminophen (From Tylenol) Allergy (Intermediate, Verified 03/20/25 15:25) Hives aspirin (ASPIRIN) Allergy (Intermediate, Verified 03/20/25 15:25) UNKNOWN gabapentin Allergy (Intermediate, Verified 03/20/25 15:25) Hives varenicline (From CHANTIX) Allergy (Intermediate, Verified 03/20/25 15:25) HIVES ibuprofen Allergy (Verified 03/20/25 15:25) Anaphylaxis lurasidone (From Latuda) Allergy (Verified 03/20/25 15:25) Unknown Bees Allergy (Intermediate, Uncoded 03/20/25 15:25) Anaphylaxis cefuroxime Allergy (Mild, Uncoded 03/20/25 15:25) Itching Tobacco use date assessed: 05/29/25 Dental Screening Dental Screen Date: 05/29/25 Did you have a dental visit in the last 12 months?: Yes Did you have a dental problem in the last 6 months where you did not have access to dental care?: No Was dental information given to patient?: Patient has dentist HPI HPI Comments History of Present Illness Details The patient is a 49-year-old female presenting with constipation and hematochezia. The constipation has been persistent, characterized by hard, pebble-like stools, and has been ongoing for approximately two weeks. Despite using Metamucil and stool softeners, and maintaining adequate hydration, there has been no improvement. The patient reports blood and mucus in the stool, accompanied by significant abdominal pain. She describes the pain as severe and constant, with episodes of extreme discomfort during bowel movements. The patient has attempted various interventions, including dietary changes and medication adjustments, without relief. Additionally, the patient experiences insomnia, sleeping only two hours per night, which has been a longstanding issue since childhood. She reports generalized body pain, particularly upon waking, and swelling, especially in the mornings. The patient also reports difficulty urinating, requiring significant effort to initiate urination. She has a history of smoking and cannabis use, although she has attempted cessation to assess its impact on her symptoms. [facility], [facility] Medical History Seizure in childhood Vomiting Tongue swelling Trichomonas infection Cervical cancer Badillo's esophagus Encounter for screening colonoscopy (~2019) Hiatal hernia Surgical History H/O endoscopy (~2019) S/P tonsillectomy H/O: hysterectomy (~1999) Family History Other Adopted Social History Household Members: Significant Other Housing: Apartment Alcohol intake: never Patient Tobacco Use Status: Current everyday Tobacco user Tobacco use type: Cigarette Cigarettes Per Day: 6 Years Smoked: 26 e-Cigarette/Vaping Use: Never Used Second Hand Smoke Exposure: Yes Substance Use Type: Marijuana service: No Current occupational status: unemployed Sexual orientation: Straight/Heterosexual Gender identity: Female Cognitive needs: No Hearing needs: No Vision needs: No Questionnaire PHQ-9 Over the last 2 weeks, how often have you been bothered by any of the following problems? 1. Little interest or pleasure in doing things: more than half the days 2. Feeling down, depressed, or hopeless: not at all 3. Trouble falling or staying asleep, or sleeping too much: more than half the days 4. Feeling tired or having little energy: nearly every day 5. Poor appetite or overeating: more than half the days 6. Feeling bad about yourself - or that you are a failure or have let yourself or your family down: not at all 7. Trouble concentrating on things, such as reading the newspaper or watching television: nearly every day 8. Moving or speaking so slowly that other people could have noticed. Or the opposite - being so fidgety or restless that you have been moving around a lot more than usual: not at all 9. Thoughts that you would be better off or of hurting yourself in some way: not at all Total score: 12 Depression Screening Interpretation: Positive Depression Screening Follow-up: Ex isting condition and In treatment Depression Screening Done: Yes Source: Developed by Drs. Obi Eden, Danitza Funk, Jose Guadalupe Sweeney and colleagues, with an educational jennifer from [employer]. Thrive Questionnaire Date Thrive assessed: 09/21/24 I am a: Patient What is your living situation today?: I have a steady place to live Within the past 12 months, did the food you bought not last and you didn't have the money to get more?: Sometimes True Within the past 12 months, did you worry whether your food would run out before you got money to buy more?: I choose not to answer this question Do you have trouble paying for medicines?: No Do you have trouble getting transportation to medical appointments?: No Do you have trouble paying your heating and electricity bill?: No Do you have trouble taking care of your child, family member or friend?: No Do you have trouble with day-to-day activities such as bathing, preparing meals, shopping, managing finances, etc.?: Yes Are you currently unemployed and looking for a job?: No Are you interested in more education?: No Please select the resources that you would like help with: None Currently or been in a relationship where the following occur: No concerns reported THRIVE Score: 1 AUDIT C Alcohol Use Questionnaire (AUDIT-C) 1. How often do you have a drink containing alcohol?: Never 3. How often do you have six or more drinks on one occasion?: Never Total Score: 0 JOVITA-7 AMB Questionnaire JOVITA-7 Date JOVITA - 7 assessed: 09/21/24 Feeling nervous, anxious, or on edge: 2 = More than half the days Not being able to stop or control worryin = Not at all Worrying too much about different things: 0 = Not at all Trouble relaxin = Not at all Being so restless that it is hard to sit still: 0 = Not at all Becoming easily annoyed or irritable: 2 = More than half the days Feeling afraid as if something awful might happen: 0 = Not at all Total JOVITA-7 score (0-4 normal; 5-9 mild; 10-14 moderate; 15-21 severe): 4 Source: Developed by Drs. Obi Eden, Jose Guadalupe [place] and colleagues, with an educational jennifer from [employer]. Review of Systems Const Details: Positives besides what was mentioned in HPI are in BOLD Constitutional: No Weight Change, No Fever, No Chills, No Night Sweats, No Fatigue, No Malaise ENT/Mouth: No Hearing Changes, No Ear Pain, No Nasal Congestion, No Sinus Pain, No Hoarseness, No sore throat, No Rhinorrhea, No Swallowing Difficulty Eyes: No Eye Pain, No Swelling, No Redness, No Foreign Body, No Discharge, No Vision Changes Cardiovascular: No Chest Pain, No SOB, No PND, No Dyspnea on Exertion, No Orthopnea, No Claudication, No Edema, No Palpitations Respiratory: No Cough, No Sputum, No Wheezing, No Smoke Exposure, No Dyspnea Gastrointestinal: No Nausea, No Vomiting, No Diarrhea, No Constipation, No Pain, No Heartburn, No Anorexia, No Dysphagia, No Hematochezia, No Melena, No Flatulence, No Jaundice Genitourinary: No Dysmenorrhea, No DUB, No Dyspareunia, No Dysuria, No Urinary Frequency, No Hematuria, No Urinary Incontinence, No Urgency, No Flank Pain, No Urinary Flow Changes, No Hesitancy Musculoskeletal: No Arthralgias, No Myalgias, No Joint Swelling, No Joint Stiffness, No Back Pain, No Neck Pain, No Injury History Skin: No Skin Lesions, No Pruritis, No Hair Changes, No Breast/Skin Changes, No Nipple Discharge Neuro: No Weakness, No Numbness, No Paresthesias, No Loss of Consciousness, No Syncope, No Dizziness, No Headache, No Coordination Changes, No Recent Falls Psych: No Anxiety/Panic, No Depression, No Insomnia, No Personality Changes, No Delusions, No Rumination, No SI/HI/AH/VH, No Social Issues, No Memory Changes, No Violence/Abuse Hx., No Eating Concerns Heme/Lymph: No Bruising, No Bleeding, No Transfusions History, No Lymphadenopathy Endocrine: No Polyuria, No Polydipsia, No Temperature Intolerance Physical exam (Primary Care) Vital Signs: Last Vital Signs Temp 97.0 F 05/29/25 15:49 Pulse 94 05/29/25 15:49 BP 110/78 05/29/25 15:49 Pulse Ox 96 05/29/25 15:49 Oxygen Delivery Method Room Air 05/29/25 15:49 BMI result Body Mass Index 28.8 Tobacco/Smoking Status: Tobacco use Status Tobacco use date assessed 05/29/25 05/29/25 15:54 Patient Tobacco Use Status Current everyday Tobacco 05/29/25 15:54 Tobacco use type Cigarette 05/29/25 15:54 e-Cigarette/Vaping Use Never Used 05/29/25 15:54 PHQ-9: PHQ-9 Score PHQ-9: Total score 12 05/29/25 15:54 Depression Screening Interpretation: Positive Depression Screening Follow-up: Existing condition and In treatment Thrive Assessment: Date of Thrive Assessment Date Thrive assessed 09/21/24 05/29/25 15:54 Currently or been in a relationship where the following occur: No concerns reported Const Other: Pertinent findings are in BOLD GENERAL APPEARANCE NAD, activity normal for age, well developed/ well nourished, no cyanosis, pallor, or diaphoresis. EYES lids/conjunctiva normal. EARS/NOSE/THROAT Mucous membranes moist, nares normal, lips/teeth normal uvula midline without oral pharyngeal erythema, exudate or swelling TMs normal bilaterally. No lymphangitis/lymphedema. HEAD/NECK normocephalic atraumatic, no facial trauma, neck is supple. RESPIRATORY respiratory effort normal, speaks in full sentences, no tripod position, no accessory muscle use. Lungs clear to auscultation without rhonchi, wheezes, rales CARDIAC Regular rate and rhythm, no edema. ABDOMINAL Soft, ND/NT. No evidence of fluid wave. No pulsatile masses on exam, rebound tenderness, Bloom sign or pain over Mcburney's point. MUSCLES/EXTREMITIES No abnormal range of motion, no swelling. SKIN Warm, pink and dry. No rashes, dermatoses, petechiae or lesions. NEUROLOGICAL Speech is clear and appropriate. Normal level of consciousness. Gait and coordination are normal. 5/5 strength in all extremities. PSYCH Normal mood and affect. Judgement/competence is appropriate Coding Level of Care Code Est Pt Level 4 (63837) Diagnoses Hematochezia K92.1 Arthritis M19.90 Time Spent (min) 30 Assessment & Plan Assessment & Plan (1) Hematochezia: Code(s): K92.1 - Melena Category: Medical Plan: Gi referral for colonoscopy and further evaluation of hematochezia. Anti cardiolipin to rule out IBD. The patient is due for screening colonoscopy as she is 49. Constipation not improved with medications. Might need assesment with food diary. I advised on lifestyle modifications to help reduce the symptoms, incl but not limited to reducing dairy, gluten and red meat. (2) Arthritis: Code(s): M19.90 - Unspecified osteoarthritis, unspecified site Category: Medical Plan: VASU, RF, CCP. Patient with morning stiffness. F-U in 2 months. Plan I discussed with the patient the need for a colonoscopy due to the presence of blood in the stool, which warrants further investigation. We also talked about the referral to gastroenterology for a comprehensive evaluation of her gastrointestinal symptoms. Additionally, I advised the patient on the potential impact of cannabis on sleep and suggested exploring alternative management strategies for her insomnia. Orders: Orders Rheumatoid Factor Today M19.90 - Unspecified osteoarthritis, unspecified site VASU Reflex Titer and Pattern Today M19.90 - Unspecified osteoarthritis, unspecified site Cardiolipin Antibodies Today K92.1 - Melena Cyclic Citrullinated Peptide Today M19.90 - Unspecified osteoarthritis, unspecified site Referrals Gastroenterology Referral K92.1 - Melena
--- OUTSIDE RECORDS SUMMARY | 2025-05-29 16:52 | XMS_ITS | Encounter Summary ---
Author Organization [facility] Address [address] [place] [address] Phone Care Team Providers Care Carcass Splitter Name Role Phone Lilliana Mosqueda MD Primary Care Provider [phone] Lilliana Mosqueda MD Unavailable [phone] Leora Avina MD Unavailable [phone] Bharath Orozco CNP Unavailable [phone] Lilliana Mosqueda MD Unavailable [phone] Deysi Poe RN Unavailable Encounter Details Date Type Department Care Team (Late st Contact Info) Description 10/20/2017 Procedure Pass [facility] Endoscopy Admitting Dept Virtual Department [address] [place] [address] Social History Tobacco Use Types Packs/Day Years [...] on filedocumented in this encounter Care Teams Carcass Splitter Relationship Specialty Start Date End Date Lilliana Mosqueda MD PCP - General 06/15/17 Lilliana Mosqueda MD [address] [place] [address] Historical LMR Provider 06/19/17 2 Leora Avina MD [address] [place] [address] Historical LMR Provider 06/19/17 09/06/21 Bharath Orozco LARD RENDERER [address] [place] [address] Historical LMR Provider 06/19/17 09/06/21 Lilliana Mosqueda MD [address] [place] [address] Insurance Assigned Provider 01/01/18 Deysi Poe, GABRIELLA [address] [place] [address] iCMP Corrugated Fastener Driver 08/20/20 10/04/20 documented as of this encounter Additional Source Comments The information contained in this document represents components of the legal health record. It is not the complete legal health record.[facility]
--- OUTSIDE RECORDS SUMMARY | 2025-05-29 16:52 | XMS_ITS | Encounter Summary ---
Author Organization [facility] Address [address] [place] [address] Phone Care Team Providers Care Door Person Name Role Phone Lilliana Mosqueda MD Primary Care Provider [phone] Lilliana Mosqueda MD Unavailable Leora Avina MD Unavailable [phone] Bharath Orozco CNP Unavailable [phone] Lilliana Mosqueda MD Unavailable Deysi Poe RN Unavailable Encounter Details Date Type Department Care Team (Late st Contact Info) Description 02/09/2018 Ancillary Orders Virtual Department [address] [place] [address] Jose Bland, CALOS [address] [place] [phone] [email or web address] Abdominal pain, unspecified abdominal location [...] location documented in this encounter Care Teams Door Person Relationship Specialty Start Date End Date Lilliana Mosqueda MD PCP - General 06/15/17 Lilliana Mosqueda MD [address] [place] [address] Historical LMR Provider 06/19/17 2 Leora Avina MD [address] [place] [address] Historical LMR Provider 06/19/17 09/06/21 Bharath Orozco CNP [address] [place] [address] Historical LMR Provider 06/19/17 09/06/21 Lilliana Mosqueda MD [address] [place] [address] Insurance Assigned Provider 01/01/18 Deysi Peo, RN [address] [place] [address] [facility] Pattern[facility] 08/20/20 10/04/20 documented as of this encounter Additional Source Comments The information contained in this document represents components of the legal health record. It is not the complete legal health record.[facility]
--- OUTSIDE RECORDS SUMMARY | 2025-05-29 16:52 | XMS_ITS | Encounter Summary ---
Author Organization [facility] Address [address] [place] [address] Phone Care Team Providers Care Nuclear Reactor Engineer Name Role Phone Lilliana Mosqueda MD Primary Care Provider [phone] Lilliana Mosqueda MD Unavailable [phone] Leora Avina MD Unavailable [phone] Bharath Orozco CNP Unavailable [phone] Lilliana Mosqueda MD Unavailable [phone] Deysi Poe RN Unavailable Encounter Details Date Type Department Care Team (Late st Contact Info) Description 10/11/2017 Procedure Pass [facility], Ct Scan - [address] [address] Social History Tobacco Use Types Packs/Day Years [...] on filedocumented in this encounter Care Teams Nuclear Reactor Engineer Relationship Specialty Start Date End Date Lilliana Mosqueda MD PCP - General 06/15/17 Lilliana Mosqueda MD [address] [place] [address] Historical LMR Provider 06/19/17 2 Leora Avina MD [address] [place] [address] Historical LMR Provider 06/19/17 09/06/21 Bharath Orozco CNP [address] [place] [address] Historical LMR Provider 06/19/17 09/06/21 Lilliana Mosqueda MD [address] [place] [address] Insurance Assigned Provider 01/01/18 Deysi Poe, RN [address] [place] [address] iCMP Employee Communications Coordinator 08/20/20 10/04/20 documented as of this encounter Additional Source Comments The information contained in this document represents components of the legal health record. It is not the complete legal health record.[facility]
--- OUTSIDE RECORDS SUMMARY | 2025-05-29 16:52 | XMS_ITS | Encounter Summary ---
Author Organization [facility] Address [address] [place] [address] Phone Care Team Providers Care Naval Marine Engineer Name Role Phone Lilliana Mosqueda MD Primary Care Provider [phone] Lilliana Mosqueda MD Unavailable [phone] Leora Avina MD Unavailable [phone] Bharath Orozco CNP Unavailable [phone] Lilliana Mosqueda MD Unavailable [phone] Deysi Poe RN Unavailable Reason for Referral * Outpatient Procedure - Closed Specialty Diagnoses / Procedures Referred By Jv bass Referred To Contact Radiology Diagnoses Early satiety Procedures NM Gastric Emptying Linda Segura PA Phone: tel: fax: Referral ID Status Reason Start Date Expiration Date Visits Re quested Visits Authorized [id number] Closed 11/26/2017 11/26/2018 1 1 Encounter Details Date Type Department Care Team (Late st Contact Info) Description 11/26/2017 Ancillary Orders Virtual Department [address] [place] [address] Linda Segura PA [address] [place] [address] Early satiety Social History Tobacco Use Types [...] the one hour time point. POS - [id number] Narrative 12/02/2017 9:58 AM EDT One millicurie [...] before the one hourtime point. POS - [id number] us Linda LIVE IMG NM ABDOMEN Final Resul t documented in this encounter Visit Diagnoses Diagnosis Early satiety Early satiety documented in this encounter Care Teams Naval Marine Engineer Relationship Specialty Start Date End Date Lilliana Mosqueda MD PCP - General 06/15/17 Lilliana Mosqueda MD [address] [place] [address] Historical LMR Provider 06/19/17 2 Leora Avina MD [address] [address] Historical LMR Provider 06/19/17 09/06/21 Bharath Orozco OIL REFINER [address] [address] Historical LMR Provider 06/19/17 09/06/21 Lilliana Mosqueda MD [address] [place] [address] Insurance Assigned Provider 01/01/18 Deysi Poe, GABRIELLA [address] [place] [address] iCMP Information Analyst 08/20/20 10/04/20 documented as of this encounter Additional Source Comments The information contained in this document represents components of the legal health record. It is not the complete legal health record.[facility]
--- OUTSIDE RECORDS SUMMARY | 2025-05-29 16:52 | XMS_ITS | Clinical Summary ---
Author Organization [facility] Address [address] [place] [address] Phone Care Team Providers Care Tennis Director Name Role Phone Lilliana Mosqueda MD Primary Care Provider [phone]- [phone] Allergies Active Allergy Reactions Criticality Noted Date [...] 40 Admit Type: Outpatient Gender: Female Room: [place] [address] Referring MD: Lilliana Mosqueda MD Exam Type: [...] 1:11 PM Procedure Code(s): --- Professional --- 24009, Colonoscopy, flexible; with biopsy, single or multiple --- Technical --- 91323, Colonoscopy, flexible; with biopsy, single or multiple Diagnosis Code(s): --- Professional --- K64.8, Other hemorrhoids K52.9, Noninfective gastroenteritis and colitis, unspecified --- Technical --- K64.8, Other hemorrhoids K52.9, Noninfective gastroenteritis and colitis, unspecified CPT copyright 2016 [employer]. All rights reserved. The codes documented in this report are preliminary and upon cloth calender reviewmay be revised to meet current compliance requirements. [address] [place] [address] Lilliana Mosqueda MD GI PROCEDURE ORDERABLES Final Result from Last 3 Months or Most Recently Relevant to Health Maintenance Insurance ACO ACO [facility] [place] [address] [place] [address] [place] [address] [place] [address] [place] [address] [place] [address] [place] [id number] Care Teams Tennis Director Relationship Specialty Start Date End Date Lilliana Mosqueda MD [email or web address] PCP - General 06/15/17 Additional Source Comments The information contained in this document represents components of the legal health record. It is not the complete legal health record.[facility]
--- OUTSIDE RECORDS SUMMARY | 2025-05-29 16:52 | XMS_ITS | Encounter Summary ---
Author Organization [facility] Address [address] [place] [address] Phone Care Team Providers Care Machine Joint Cutter Name Role Phone Lilliana Mosqueda MD Primary Care Provider [phone]- [phone] Lilliana Mosqueda MD Unavailable [phone] Leora Avina MD Unavailable [phone] Bharath Orozco CNP Unavailable [phone] Lilliana Mosqueda MD Unavailable [phone] Deysi Poe RN Unavailable Encounter Details Date Type Department Care Team (Late st Contact Info) Description 02/11/2018 Procedure Pass [facility], Ct Scan - [address] [address] Social History Tobacco Use Types Packs/Day Years [...] filedocumented in this encounter Care Teams Machine Joint Cutter Relationship Specialty Start Date End Date Lilliana Mosqueda MD PCP - General 06/15/17 Lilliana Mosqueda MD [address] [place] [address] Historical LMR Provider 06/19/17 2 Leora Avina MD [address] [place] [address] Historical LMR Provider 06/19/17 09/06/21 Bharath Orozco CNP [address] [place] [address] Historical LMR Provider 06/19/17 09/06/21 Lilliana Mosqueda MD [address] [place] [address] Insurance Assigned Provider 01/01/18 Deysi Poe, RN [address] [place] [address] [employer] Business Operations Consultant 08/20/20 10/04/20 documented as of this encounter Additional Source Comments The information contained in this document represents components of the legal health record. It is not the complete legal health record.[facility]
--- OUTSIDE RECORDS SUMMARY | 2025-05-29 16:52 | XMS_ITS | Encounter Summary ---
Author Organization [facility] Address [address] [place] [address] Phone Care Team Providers Care Multi Needle Machine Operator Name Role Phone Lilliana Mosqueda MD Primary Care Provider [phone]- [phone] Lilliana Mosqueda MD Unavailable [phone] Leora Avina MD Unavailable [phone] Bharath Orozco CNP Unavailable [phone] Lilliana Mosqueda MD Unavailable [phone] Deysi Poe RN Unavailable Encounter Details Date Type Department Care Team (Late st Contact Info) Description 08/10/2018 Procedure Pass [facility]oscopy Admitting Dept Virtual Department [address] [place] [address] Social History Tobacco Use Types Packs/Day Years [...] on filedocumented in this encounter Care Teams Multi Needle Machine Operator Relationship Specialty Start Date End Date Lilliana Mosqueda MD PCP - General 06/15/17 Lilliana Mosqueda MD [address] [place] [address] Historical LMR Provider 06/19/17 2 Leora Avina MD [address] [place] [address] Historical LMR Provider 06/19/17 09/06/21 Bharath Orozco CNP [address] [place] [address] Historical LMR Provider 06/19/17 09/06/21 Lilliana Mosqueda MD [address] [place] [address] Insurance Assigned Provider 01/01/18 Deysi Poe, GABRIELLA [address] [place] [address] [employer] Floor Molder 08/20/20 10/04/20 documented as of this encounter Additional Source Comments The information contained in this document represents components of the legal health record. It is not the complete legal health record.[facility]
--- OUTSIDE RECORDS SUMMARY | 2025-05-29 16:52 | XMS_ITS | Clinical Summary ---
Author Organization [employer] [facility] ity Address [address] [place] [address] Care Team Providers Care Art Editor Name Role Phone Lilliana Mosqueda MD [...] age to complete this topic Care Teams Art Editor Relationship Specialty Start Date End Date Lilliana Mosqueda MD [address] [place] [phone] PCP - General Family Medicine 05/31/19
--- OUTSIDE RECORDS SUMMARY | 2025-05-29 16:52 | XMS_ITS | Clinical Summary ---
Author Organization [facility] Address [address] [place] [address] Care Team Providers Care Speech Coach Name Role Phone David Graves MD Primary Care Provider [phone]- [phone] Allergies Active Allergy Reactions Criticality Noted Date [...] 1998 Mammogram 2017 Colonoscopy 2022 Influenza Vaccine 03/30/2025 COVID-19 Vaccine ( season) 2025 Insurance [employer] Advance Directives * Full Code (Latest Code Status on File) Date Activated Date Inactivated Comments 11/22/2024 11:07 AM Care Teams Speech Coach Relationship Specialty Start Date End Date David Graves MD [address] [place] [address] Dr Aponte, [place] [address] PCP - General Internal Medicine 11/22/24
== END 2025-05-29 16:32 | disposition home or self-care (01) ==
LOC: HO.HMCH 15:40
PROVIDERS: PCP Internal Medicine; Visit Provider Internal Medicine
DX: K92.1 Melena (principal); M19.90 Unspecified osteoarthritis, unspecified site

== ENCOUNTER → 2025-05-29 15:39 | Outpatient (BNVA) | payer OTHER, SELFPAY | PROVIDERS: PCP Internal Medicine; Visit Provider Internal Medicine | DX: K92.1 Melena (principal); M19.90 Unspecified osteoarthritis, unspecified site | CPT/HCPCS: 99212 ==

== ENCOUNTER 2025-06-15 10:54 | Outpatient (AMB) | payer OTHER, SELFPAY ==
[2025-06-15 11:01] VITALS: BP 114/57; PULSE 72; BMI 29.3
--- NOTE | 2025-06-15 11:01 | MHC.OFFVIS ---
Vital Signs 06/15/25 11:01 Height 5 ft 5 in Weight 175 lb 14.862 oz BMI 29.3 BP 114/57 L Blood Pressure Location Lt brachial Position Sitting Pulse 72 Intake Visit Reasons: Pt req. Multiple GI concerns Intake Note: Patient here c/o lots of abdominal pain and blood on stool. Started a couple of months. Adopted. Unknown family hx. Patient reports hx of constipation. Currently taking Senna. Tool Hardener Required: No Accompanied by: spouse Alessio Allergies Penicillins Allergy (Severe, Verified 03/20/25 15:25) Anaphylaxis acetaminophen (From Tylenol) Allergy (Intermediate, Verified 03/20/25 15:25) Hives aspirin (ASPIRIN) Allergy (Intermediate, Verified 03/20/25 15:25) UNKNOWN gabapentin Allergy (Intermediate, Verified 03/20/25 15:25) Hives varenicline (From CHANTIX) Allergy (Intermediate, Verified 03/20/25 15:25) HIVES ibuprofen Allergy (Verified 03/20/25 15:25) Anaphylaxis lurasidone (From Latuda) Allergy (Verified 03/20/25 15:25) Unknown Bees Allergy (Intermediate, Uncoded 03/20/25 15:25) Anaphylaxis cefuroxime Allergy (Mild, Uncoded 03/20/25 15:25) Itching HPI HPI Pt req. Multiple GI concerns: Details: LAST VISIT: 09/22/2024 Constipation Vomiting Postprandial epigastric pain Postprandial abdominal bloating Plan Patient will continue Linzess. Increase fluid intake and activity to promote better bowel motility. Low FODMAP diet discussed with patient. Patient will continue elimination diet. Continue Nexium. Avoid dietary triggers and late night snacking. Staying upright for minimum 3 hours after meals discussed with patient. Vitamin-D sent to pharmacy. Patient will try to use good Rx card to purchase. Follow-up in 3 months. She will call our office if she will have any GI concerning symptoms. Patient is agreeable to current plan of care and verbalizes understanding of instructions. She was given the opportunity to ask questions and all questions answered. ? Thank you for allowing me to participate in her care Refilled cholecalciferol (vitamin D3) 125 mcg PO DAILY 90 caps 3RF TODAY'S VISIT Patient is here today for requested visit. Patient states that she was seen at [facility] ED and was admitted after sustaining syncopal episode sitting on the toilet. Patient reports that she was found to have a prolonged QT intervals and all of her medications were stopped which included Linzess. Currently patient is taking docusate sodium that is not helpful with her bowel movements. Patient reports difficulties of moving her bowels. Sometimes no bowel movement for 1 week. Patient reports abdominal pain. Patient reports feeling tired after eating a meal. Denies postprandial syncope. Currently is been followed by Cardiology for this. Her next appointment is on June 20. Patient colonoscopy and endoscopy in 2019. Patient reports that she was diagnosed with Barretts esophagus. Reports epigastric pain along with abdominal pain and cramping. Currently patient is taking omeprazole for acid reflux which have been somewhat helpful. Previously patient was seen by ENT for globus sensation and neck pain. Patient reports that when she had syncopal episode prior to ED visit she hit her neck. ENT visit back in January of 2025. No abnormal findings found during flexible laryngoscopy. No lesions, no ulcers, no masses found. Patient reports still feels occasional globus sensation and occasional acid reflux. Reports occasional rectal bleed and pain specially when she is constipated. Patient reports abdominal cramping. Tries to have a bowel movement when feels cramping, most of the time not successful. Patient reports that when she was taking Linzess it was not very helpful. Patient also reports that she is having trouble urinating. Patient does feel the urgency, however unable to urinate when she tries to go to the bathroom. Denies any burning, mucus, blood. Denies any fever or chills. [facility] Medical History Seizure in childhood Vomiting Tongue swelling Trichomonas infection Cervical cancer Badillo's esophagus Encounter for screening colonoscopy (~2019) Hiatal hernia Surgical History H/O endoscopy (~2019) S/P tonsillectomy H/O: hysterectomy (~1999) Family History Other Adopted Social History Household Members: Significant Other Housing: Apartment Alcohol intake: never Patient Tobacco Use Status: Current everyday Tobacco user Tobacco use type: Cigarette Cigarettes Per Day: 6 Years Smoked: 26 e-Cigarette/Vaping Use: Never Used Second Hand Smoke Exposure: Yes Substance Use Type: Marijuana service: No Current occupational status: unemployed Sexual orientation: Straight/Heterosexual Gender identity: Female Cognitive needs: No Hearing needs: No Vision needs: No Review of Systems Const Denies weight gain and Denies weight loss ENT Reports no additional complaints, Denies dysphagia and Denies odynophagia Card Reports no additional complaints Resp Reports no additional complaints GI Reports abdominal pain, Denies belching, Denies melena, Reports bloating, Denies change in bowel habits, Reports constipation, Denies dysphagia, Denies excessive flatus, Denies dyspepsia, Reports heartburn, Denies diarrhea, Denies loose stools, Reports nausea, Denies odynophagia and Reports vomiting Reports no additional complaints Musc Reports no additional complaints Neuro Reports no additional complaints Psych Reports no additional complaints Endo Reports no additional complaints Physical Exam Vital Signs: Last Vital Signs Pulse 72 06/15/25 11:01 BP 114/57 L 06/15/25 11:01 BMI result Body Mass Index 29.3 Const General: healthy appearing and no acute distress Nutritional Appearance: obese Orientation/consciousness: patient oriented x3 Resp Effort & Inspection: normal respiratory effort, able to speak in complete sentences, no tracheal deviation and symmetric chest movement Auscultation: clear to auscultation bilaterally Cardio Rate: regular rate GI Inspection: Yes normal to inspection and No distended Palpation (GI): Soft to palpation, not firm, nontender and No hepatosplenomegaly present Auscultation: normal bowel sounds General: Yes no CVA tenderness Back/Spine/Pelvis Back: no CVA tenderness Skin General skin exam: elasticity normal, turgor normal and dry skin Neuro General: patient oriented x3 Psych Appearance: grossly normal Mental Status: mental status grossly normal Assessment & Plan Assessment & Plan (1) Vomiting: Code(s): R11.10 - Vomiting, unspecified Category: Medical Qualifiers: Vomiting type: unspecified Nausea presence: with nausea Qualified Code(s): R11.2 - Nausea with vomiting, unspecified (2) GERD (gastroesophageal reflux disease): Code(s): K21.9 - Gastro-esophageal reflux disease without esophagitis Category: Medical Qualifiers: Esophagitis presence: esophagitis presence not specified Qualified Code(s): K21.9 - Gastro-esophageal reflux disease without esophagitis (3) Dysphagia: Code(s): R13.10 - Dysphagia, unspecified Category: Medical Qualifiers: Dysphagia type: unspecified Qualified Code(s): R13.10 - Dysphagia, unspecified (4) Elevated LFTs: Code(s): R79.89 - Other specified abnormal findings of blood chemistry Category: Medical (5) Left lower quadrant abdominal pain: Code(s): R10.32 - Left lower quadrant pain Category: Medical (6) Hematochezia: Code(s): K92.1 - Melena Category: Medical (7) Constipation: Code(s): K59.00 - Constipation, unspecified Category: Medical Qualifiers: Constipation type: slow transit constipation Qualified Code(s): K59.01 - Slow transit constipation (8) Abdominal pain: Code(s): R10.9 - Unspecified abdominal pain Qualifiers: Abdominal location: generalized Qualified Code(s): R10.84 - Generalized abdominal pain Plan Discussed with patient the importance of avoiding dietary triggers. Will send her for upper GI with barium swallow. Patient will have vitamin-D, B12 and folate checked as well as transglutaminase to rule out celiac. Patient will continue taking the omeprazole. Reports semi effective, however due to her being constipated she feels like she is more nauseous now. She can take Motegrity daily. Patient reports urinary retention, urinalysis will be ordered and she will be referred to urologist. Patient has appointment with us in July she can keep that appointment. She is seen by her playground worker next week we will wait for cardiology clearance as next visit we will discuss for patient to go for upper endoscopy as well as colonoscopy. Syncope most likely related to vasovagal stimulation well on the toilet trying to have a bowel movement. Patient can use Proctosol for her hemorrhoids. Patient is agreeable to current plan of care and verbalizes understanding of instructions. She was given the opportunity to ask questions and all questions answered. Thank you for allowing me to participate in her care Orders: Orders Vitamin D 25-OH (D2 and D3) Today E55.9 - Vitamin D deficiency, unspecified Vitamin B12 and Folate Today R19.7 - Diarrhea, unspecified Transglutaminase IgA Today R10.9 - Unspecified abdominal pain FL upper GI w air w Ba Swallow Today K21.9 - Gastro-esophageal reflux disease without esophagitis UA CC w/rflx Micro + Cult Today R30.9 - Painful micturition, unspecified Referrals Urology Referral R33.9 - Retention of urine, unspecified Medications: New hydrocortisone 2.5% (Proctosol HC) 1 appl [place] BID-QID PRN 30 grams 2RF hemorrhoids K64.9 - Unspecified hemorrhoids prucalopride (Motegrity) 2 mg PO DAILY 30 tabs 2RF K59.04 - Chronic idiopathic constipation Coding Level of Care Code Est Pt Level 4 (23316) Complex EM visit Add On G2211 Diagnoses Nausea and vomiting, unspecified vomiting type R11.2 Vomiting type: unspecified Nausea presence: with nausea Gastroesophageal reflux disease, unspecified whether esophagitis present K21.9 Esophagitis presence: esophagitis presence not specified Dysphagia, unspecified type R13.10 Dysphagia type: unspecified Elevated LFTs R79.89 Left lower quadrant abdominal pain R10.32 Hematochezia K92.1 Slow transit constipation K59.01 Constipation type: slow transit constipation Generalized abdominal pain R10.84 Abdominal location: generalized Time Spent (min) 45 Comment 25 minutes spent with patient and additional 20 minutes spent reviewing her records
--- OUTSIDE RECORDS SUMMARY | 2025-06-15 13:33 | XMS_ITS | Encounter Summary ---
Author Organization [facility] Address [address] [place] [address] Phone Care Team Providers Care Air/Ocean Export Clerk Name Role Phone Lilliana Mosqueda MD Primary Care Provider [phone] Lilliana Mosqueda MD Unavailable [phone] Leora Avina MD Unavailable [phone] Bharath Orozco CNP Unavailable [phone] Lilliana Mosqueda MD Unavailable [phone] Deysi Poe RN Unavailable Encounter Details Date Type Department Care Team (Late st Contact Info) Description 10/20/2017 Procedure Pass [facility] Endoscopy Admitting Dept Virtual Department [address] [place] [address] Social History Tobacco Use Types Packs/Day Years [...] on filedocumented in this encounter Care Teams Air/Ocean Export Clerk Relationship Specialty Start Date End Date Lilliana Mosqueda MD PCP - General 06/15/17 Lilliana Mosqueda MD [address] [place] [address] Historical LMR Provider 06/19/17 2 Leora Avina MD [address] [place] [address] Historical LMR Provider 06/19/17 09/06/21 Bharath Orozco TOOLROOM HELPER [address] [place] [address] Historical LMR Provider 06/19/17 09/06/21 Lilliana Mosqueda MD [address] [place] [address] Insurance Assigned Provider 01/01/18 Deysi Poe, GABRIELLA [address] [place] [address] [employer] Foreman Shipping Department 08/20/20 10/04/20 documented as of this encounter Additional Source Comments The information contained in this document represents components of the legal health record. It is not the complete legal health record.[facility]
--- OUTSIDE RECORDS SUMMARY | 2025-06-15 13:33 | XMS_ITS | Encounter Summary ---
Author Organization [facility] Address [address] [place] [address] Phone Care Team Providers Care Pharmacologist Name Role Phone Lilliana Mosqueda MD Primary Care Provider [phone] Lilliana Mosqueda MD Unavailable [phone] Leora Avina MD Unavailable [phone] Bharath Orozco CNP Unavailable [phone] Lilliana Mosqueda MD Unavailable [phone] Deysi Poe RN Unavailable Encounter Details Date Type Department Care Team (Late st Contact Info) Description 08/10/2018 Procedure Pass [facility] Endoscopy Admitting Dept Virtual Department [address] [place] [address] Social History Tobacco Use Types Packs/Day Years [...] on filedocumented in this encounter Care Teams Pharmacologist Relationship Specialty Start Date End Date Lilliana Mosqueda MD PCP - General 06/15/17 Lilliana Mosqueda MD [address] [place] [address] Historical LMR Provider 06/19/17 2 Leora Avina MD [address] [place] [address] Historical LMR Provider 06/19/17 09/06/21 Bharath Orozco CNP [address] [place] [address] Historical LMR Provider 06/19/17 09/06/21 Lilliana Mosqueda MD [address] [place] [address] Insurance Assigned Provider 01/01/18 Deysi Poe, GABRIELLA [address] [place] [address] PHCM Motor Vehicle Examiner 08/20/20 10/04/20 documented as of this encounter Additional Source Comments The information contained in this document represents components of the legal health record. It is not the complete legal health record.[facility]
--- OUTSIDE RECORDS SUMMARY | 2025-06-15 13:33 | XMS_ITS | Clinical Summary ---
Author Organization [facility] Address [address] [place] [address] Care Team Providers Care Hand Binder Cutter Name Role Phone David Graves MD Primary Care Provider [phone]- [phone] Allergies Active Allergy Reactions Criticality Noted Date [...] Inactivated Comments 11/22/2024 11:07 AM Care Teams Hand Binder Cutter Relationship Specialty Start Date End Date David Graves MD [address] [place] [address] Dr Aponte, [place] [address] PCP - General Internal Medicine 11/22/24
--- OUTSIDE RECORDS SUMMARY | 2025-06-15 13:33 | XMS_ITS | Encounter Summary ---
Author Organization [facility] Address [address] [place] [address] Phone Care Team Providers Care Supervisor Cutting Department Name Role Phone Lilliana Mosqueda MD Primary Care Provider [phone] Lilliana Mosqueda MD Unavailable [phone] Leora Avina MD Unavailable [phone] Bharath Orozco CNP Unavailable [phone] Lilliana Mosqueda MD Unavailable [phone] Deysi Poe RN Unavailable Encounter Details Date Type Department Care Team (Late st Contact Info) Description 02/11/2018 Procedure Pass [facility], Ct Scan - [address] [address] Social History Tobacco Use Types Packs/Day Years [...] on filedocumented in this encounter Care Teams Supervisor Cutting Department Relationship Specialty Start Date End Date Lilliana Mosqueda MD PCP - General 06/15/17 Lilliana Mosqueda MD [address] [place] [address] Historical LMR Provider 06/19/17 2 Leora Avina MD [address] [place] [address] Historical LMR Provider 06/19/17 09/06/21 Bharath Orozco CNP [address] [place] [address] Historical LMR Provider 06/19/17 09/06/21 Lilliana Mosqueda MD [address] [place] [address] Insurance Assigned Provider 01/01/18 Deysi Poe, GABRIELLA [address] [place] [address] PHCM Development Geologist 08/20/20 10/04/20 documented as of this encounter Additional Source Comments The information contained in this document represents components of the legal health record. It is not the complete legal health record.[facility]
--- OUTSIDE RECORDS SUMMARY | 2025-06-15 13:33 | XMS_ITS | Clinical Summary ---
Author Organization [employer] [facility] ity Address [address] [place] [address] Care Team Providers Care Pin Chaser Name Role Phone Lilliana Mosqueda MD Primary [...] Last Done Comments Breast Cancer Screening 1977 Colorectal Cancer Screening: Colonoscopy 1977 DTaP,Tdap,and Td Vaccines (1 - Tdap) 1996 Cervical Cancer Screening: P ap Smear 1998 Hepatitis B Vaccines (3 of 3 - 19+ 3-dose series) 07/28/2003 02/22/2003, 01/25/2003 HIV Screening 07/02/2024 Hepatitis C Screening 07/02/2024 Social Influencers of Health Screening 07/02/2024 Depression Screening 08/30/2024 COVID-19 Vaccine ( - 2023-2 5 season) 2025 Influenza Vaccine (#1) 2025 RSV Immunization Adult Patients (1 - 1-dose 75+ series) 2052 HIB Vaccines Aged Out No longer eligi [...] age to complete this topic Care Teams Pin Chaser Relationship Specialty Start Date End Date Lilliana Mosqueda MD [address] [place] [address] PCP - General Family Medicine 05/31/19
--- OUTSIDE RECORDS SUMMARY | 2025-06-15 13:34 | XMS_ITS | Encounter Summary ---
Author Organization [facility] Address [address] [place] [address] Phone Care Team Providers Care Product Assembler Name Role Phone Lilliana Mosqueda MD Primary Care Provider [phone] Lilliana Mosqueda MD Unavailable [phone] Leora Avina MD Unavailable [phone] Bharath Orozco CNP Unavailable [phone] Lilliana Mosqueda MD Unavailable [phone] Deysi Poe RN Unavailable Reason for Referral * Outpatient Procedure - Closed Specialty Diagnoses / Procedures Referred By Jv bass Referred To Contact Radiology Diagnoses Early satiety Procedures NM Gastric Emptying Linda Segura PA Phone: tel: fax: Referral ID Status Reason Start Date Expiration Date Visits Re quested Visits Authorized [id number] Closed 11/26/2017 11/26/2018 1 1 Encounter Details Date Type Department Care Team (Late st Contact Info) Description 11/26/2017 Ancillary Orders Virtual Department [address] [place] [address] Linda Segura PA [address] [place] [address] Early satiety Social History Tobacco Use Types [...] the one hour time point. POS - [id number] Narrative 12/02/2017 9:58 AM EDT One millicurie [...] before the one hourtime point. POS - [id number] us Linda LIVE IMG NM ABDOMEN Final Resul t documented in this encounter Visit Diagnoses Diagnosis Early satiety Early satiety documented in this encounter Care Teams Product Assembler Relationship Specialty Start Date End Date Lilliana Mosqueda MD PCP - General 06/15/17 Lilliana Mosqueda MD [address] [place] [address] Historical LMR Provider 06/19/17 2 Leora Avina MD [address] [address] Historical LMR Provider 06/19/17 09/06/21 Bharath Orozco SOFTWARE TEST AND VALIDATION ENGINEER [address] [address] Historical LMR Provider 06/19/17 09/06/21 Lilliana Mosqueda MD [address] [place] [address] Insurance Assigned Provider 01/01/18 Deysi Poe, GABRIELLA [address] [place] [id number] [facility] Ice Hockey Coach 08/20/20 10/04/20 documented as of this encounter Additional Source Comments The information contained in this document represents components of the legal health record. It is not the complete legal health record.[facility]
--- OUTSIDE RECORDS SUMMARY | 2025-06-15 13:34 | XMS_ITS | Data Portability ---
Author Organization [facility], [address] Address [address] [place] [address] Assessment No assessment recorded. Plan of Treatment Reminders Order Date Submit Date Provider Last Modified By Organization Details Last Modified Time Details Appointments None recorded. Lab None recorded. Referral emergency medicine referral - Significant left hip pain - cannot ambulate - history of fracture as a child. Coming by EMS. 2022 023 [email or web address] 26 [facility] [address] [place] [address], [address], 3 07:26:15 Procedures None recorded. Surgeries None [...] pain tracking down the femur. 2022 023 [facility], [address] [facility], [place], [address], 3 19:26:28 Medication Orders None recorded. Patient TargetsNo targets recorded. Patient Instructions Encounter Date Encounter Id Patient Instructions Last Modified By Organization Details Last Modified Time 10/01/2022 [id number] Based on your ex am and presentation [...] why my recommendation is the Emergency Room. [email or web address] Not available 10/01/2022 17:11:48 Reason for Referral [...] unila teral No observ ation record ed. [email or web address] [facility] [address] [facility] [place], [address], 10/01/2022 20:31:21 Result Notes None recorded. Problems Name Problem SNOMED Code Status Onset Date Resolution Date Notes Provider Name and Address Organization Details Recorded Time Attention deficit hyperactivity disorder 180447104 Active 2022 Leonora holley, PA - [facility] 3 15:54:19 Bipolar disorder 59762269 Active 2022 [facility], [facility] - [facility] [...] Name and Address Organization Details Recorded Time 840430 Tylenol medicatio n Not available Not available Not available 10/01/2022 3 RxNorm Leonora holley, PA - [facility] 15:51:44 656992 ibuprofen medicatio n Not available Not available Not available 10/01/2022 5640 RxNorm Leonora holley, PA - [facility] 3 15:52:00 179827 Latuda medicatio n Not available Not available Not available 10/01/2022 93858 32 RxNorm Leonora holley, PA - [facility] 3 15:52:05 667343 aspirin medicatio n Not available Not available [...] /min 97.7 [degF] 165.1 cm 25.8 kg/m2 40353.8 2 g 109/76 mm[Hg] Leonora Hu PA - [facility] 3 16:28:23 Date Recorded Body height Provider Name an d Address Organization Details Last Updated DateTime 11/05/2022 165.1 cm [facility] [place], [address], PA - [facility] 12/01/2022 20:03:21 Social History Question Answer Notes LastModified by Organizat ion Details LastModified Time Tobacco Smoking Status Current Every Day Smoker Lenoora holley PA Misha [facility] 10/01/2022 15:55:03 [...] Diagnosis SNOMED-CT Code Diagnosis ICD10 Code Diagnosis IMO Codes Diagnosis Note [id number] [facility] [address] [facility] [facility] [address] [place] [address] 10/01/2022 14:29:12 10/01/2022 17:16:29 Pain of left hip joint 5201877995 80827 M25.552 S/P fall out of bed x 1 week ago. [id number] [facility] [address] [facility] [address] [place] [address] 11/05/2022 08:18:11 12/01/2022 20:03:56 Left without being seen [id number] 9102 Z53.21 Health Concerns Section Related Observation LastModified by Organization Detai ls LastModified Time None Recorded Concern Status LastModified by Organization Details LastModified Time None Recorded Advance Directives Directive None Recorded Payers Insurance Date Sequence Insurance Name Policy Number Policy Rios Covered Member ID Rios Member ID Guarantor Name 11/02/2022 2 [place] [facility] Dominique Almonte [id number] Dominique Almonte 11/05/2022 1 [place] PRIOR TO 2022 - [facility] (MEDICAID) Dominique Almonte [id number] Dominique Almonte Notes Date Note Type Note [...] since the injury. [facility] [place], [address], [place] - [facility] 10/01/2022 17:47:49 OBGyn Episode No OBEpisode recorded.
--- OUTSIDE RECORDS SUMMARY | 2025-06-15 13:34 | XMS_ITS | Encounter Summary ---
Author Organization [facility] Address [address] [place] [address] Phone Care Team Providers Care Shredded Filler Hopper Feeder Name Role Phone Lilliana Mosqueda MD Primary Care Provider [phone] Lilliana Mosqueda MD Unavailable [phone] Leora Avina MD Unavailable [phone] Bharath Orozco CNP Unavailable [phone] Lilliana Mosqueda MD Unavailable Deysi Poe RN Unavailable Encounter Details Date Type Department Care Team (Late st Contact Info) Description 02/09/2018 Ancillary Orders Virtual Department [address] [place] [address] Jose Bland, [facility] [address] [place] [phone] [email or web address] Abdominal pain, unspecified abdominal location Social [...] location documented in this encounter Care Teams Shredded Filler Hopper Feeder Relationship Specialty Start Date End Date Lilliana Mosqueda MD PCP - General 06/15/17 Lilliana Mosqueda MD [address] [place] [address] Historical LMR Provider 06/19/17 2 Leora Avina MD [address] [place] [address] Historical LMR Provider 06/19/17 09/06/21 Bharath Orozco CNP [address] [place] [address] Historical LMR Provider 06/19/17 09/06/21 Lilliana Mosqueda MD [address] [place] [address] Insurance Assigned Provider 01/01/18 Deysi Poe, RN [address] [place] [address] PHCM Forensic Sergeant 08/20/20 10/04/20 documented as of this encounter Additional Source Comments The information contained in this document represents components of the legal health record. It is not the complete legal health record.[facility]
--- OUTSIDE RECORDS SUMMARY | 2025-06-15 13:34 | XMS_ITS | Encounter Summary ---
Author Organization [facility] Address [address] [place] [address] Phone Care Team Providers Care Shop Clerk Name Role Phone Lilliana Mosqueda MD Primary Care Provider [phone] Lilliana Mosqueda MD Unavailable [phone] Leora Avina MD Unavailable [phone] Bharath Orozco CNP Unavailable [phone] Lilliana Mosqueda MD Unavailable [phone] Deysi Poe RN Unavailable Encounter Details Date Type Department Care Team (Late st Contact Info) Description 10/11/2017 Procedure Pass [facility], Ct Scan - [address] [address] Social History Tobacco Use Types Packs/Day Years [...] on filedocumented in this encounter Care Teams Shop Clerk Relationship Specialty Start Date End Date Lilliana Mosqueda MD PCP - General 06/15/17 Lilliana Mosqueda MD [address] [place] [address] Historical LMR Provider 06/19/17 2 Leora Avina MD [address] [place] [address] Historical LMR Provider 06/19/17 09/06/21 Bharath Orozco CNP [address] [place] [address] Historical LMR Provider 06/19/17 09/06/21 Lilliana Mosqueda MD [address] [place] [address] Insurance Assigned Provider 01/01/18 Deysi Poe, GABRIELLA [address] [place] [address] PHCM Residential Real Estate Assistant 08/20/20 10/04/20 documented as of this encounter Additional Source Comments The information contained in this document represents components of the legal health record. It is not the complete legal health record.[facility]
--- OUTSIDE RECORDS SUMMARY | 2025-06-15 13:34 | XMS_ITS | Clinical Summary ---
Author Organization [facility] Address [address] [place] [address] Phone Care Team Providers Care Applied Psychology Chair Name Role Phone Lilliana Mosqueda MD Primary Care Provider [phone] Allergies Active Allergy Reactions Criticality Noted Date [...] (#1) 2025 07/07/2015 COVID-19 VACCINE (1 - 2024-2 6 season) 2025 COLONOSCOPY 10/20/2027 10/20/2017 COLORECTAL CANCER [...] 40 Admit Type: Outpatient Gender: Female Room: [place] [address] Referring MD: Lilliana Mosqueda MD Exam Type: [...] 1:11 PM Procedure Code(s): --- Professional --- 30128, Colonoscopy, flexible; with biopsy, single or multiple --- Technical --- 95596, Colonoscopy, flexible; with biopsy, single or multiple Diagnosis Code(s): --- Professional --- K64.8, Other hemorrhoids K52.9, Noninfective gastroenteritis and colitis, unspecified --- Technical --- K64.8, Other hemorrhoids K52.9, Noninfective gastroenteritis and colitis, unspecified CPT copyright 2016 [employer]. All rights reserved. The codes documented in this report are preliminary and upon filling machine operator reviewmay be revised to meet current compliance requirements. [address] [place] [address] Lilliana Mosqueda MD GI PROCEDURE ORDERABLES Final Result from Last 3 Months or Most Recently Relevant to Health Maintenance Insurance [facility]CO [facility] [place] [address] [place] [id number] [place] [address] [place] [id number] [place] [address] [place] [id number] [place] [id number] Care Teams Applied Psychology Chair Relationship Specialty Start Date End Date Lilliana Mosqueda MD [email or web address] PCP - General 06/15/17 Additional Source Comments The information contained in this document represents components of the legal health record. It is not the complete legal health record.[facility]
== END 2025-06-15 12:09 | disposition home or self-care (01) ==
LOC: HO.HGI 10:55
PROVIDERS: PCP Internal Medicine; Visit Provider Nurse Practitioner Family
DX: R11.2 Nausea with vomiting, unspecified (principal); K21.9 Gastro-esophageal reflux disease without esophagitis; R13.10 Dysphagia, unspecified; R79.89 Other specified abnormal findings of blood chemistry; R10.32 Left lower quadrant pain; K92.1 Melena; K59.01 Slow transit constipation; R10.84 Generalized abdominal pain
CPT/HCPCS: 99214

== ENCOUNTER → 2025-06-15 10:54 | Outpatient (BNVA) | payer OTHER, SELFPAY | PROVIDERS: PCP Internal Medicine; Visit Provider Nurse Practitioner Family | DX: K21.9 Gastro-esophageal reflux disease without esophagitis (principal); R11.2 Nausea with vomiting, unspecified; R13.10 Dysphagia, unspecified; K92.1 Melena; R10.32 Left lower quadrant pain; K59.01 Slow transit constipation; R10.84 Generalized abdominal pain; R79.89 Other specified abnormal findings of blood chemistry | CPT/HCPCS: 99212 ==

== ENCOUNTER 2025-08-08 15:12 | Outpatient (AMB) | payer OTHER, SELFPAY ==
--- NOTE | 2025-08-08 15:22 | MHC.OFFVIS ---
Vital Signs 08/08/25 15:23 Height 5 ft 5 in Weight 177 lb 4.026 oz BMI 29.5 BP 138/80 Blood Pressure Location Lt brachial Position Sitting Pulse 99 Pulse Source Monitor Intake Visit Reasons: F/u Holter r/s Site Manager Required: No Accompanied by: Spouse Allergies Penicillins Allergy (Severe, Verified 08/08/25 15:51) Anaphylaxis acetaminophen (From Tylenol) Allergy (Intermediate, Verified 08/08/25 15:51) Hives aspirin (ASPIRIN) Allergy (Intermediate, Verified 08/08/25 15:51) UNKNOWN gabapentin Allergy (Intermediate, Verified 08/08/25 15:51) Hives varenicline (From CHANTIX) Allergy (Intermediate, Verified 08/08/25 15:51) HIVES ibuprofen Allergy (Verified 08/08/25 15:51) Anaphylaxis lurasidone (From Latuda) Allergy (Verified 08/08/25 15:51) Unknown Bees Allergy (Intermediate, Uncoded 08/08/25 15:51) Anaphylaxis cefuroxime Allergy (Mild, Uncoded 08/08/25 15:51) Itching Medication List - Last Reconciled 08/08/25 by Jose Eduardo Sawant NP aripiprazole 10 mg PO DAILY clonazepam 1 mg PO BID PRN hydrocortisone 2.5% (Proctosol HC) 1 appl NC BID-QID PRN lisdexamfetamine (Vyvanse) 20 mg PO QAM magnesium oxide 400 mg PO BEDTIME omeprazole 20 mg PO DAILY prucalopride (Motegrity) 2 mg PO DAILY rimegepant (Nurtec ODT) 75 mg PO DAILY PRN 30 days MDD 1 tab sennosides-docusate sodium 8.6-50 mg (Senna Plus) 2 tab-caps (2 x 8.6-50 mg) PO BEDTIME venlafaxine ER 37.5 mg PO DAILY HPI Comments Details: This is a 50-year-old female patient coming in for a follow-up visit, accompanied by her partner. Patient was previously seen in the office for an abnormal EKG and an echo for which patient underwent a Holter study at an repeat echocardiogram. Repeat echo showed improved EF between 50-55%. Patient states that she completed the Holter and was already mailed back however we check with the company and they have not received this. Today, patient is reporting intermittent chest discomfort mostly happening at rest. Patient states that the pain is sharp and lasts for few sec. patient is denying any associated symptoms of shortness of breath, palpitations, dizziness, orthopnea, PND, leg edema, presyncope or syncope. Patient is denying any recurrence of syncopal episode. Patient does have significant anxiety and is unfortunately a smoker. [facility] Medical History Chest pain Seizure in childhood Vomiting Tongue swelling Trichomonas infection Cervical cancer Badillo's esophagus Encounter for screening colonoscopy (~2019) Hiatal hernia Surgical History H/O endoscopy (~2019) S/P tonsillectomy H/O: hysterectomy (~1999) Family History Other Adopted Social History Household Members: Significant Other Housing: Apartment Alcohol intake: never Patient Tobacco Use Status: Current everyday Tobacco user Tobacco use type: Cigarette Cigarettes Per Day: 6 Years Smoked: 26 e-Cigarette/Vaping Use: Never Used Second Hand Smoke Exposure: Yes Substance Use Type: Marijuana service: No Current occupational status: unemployed Sexual orientation: Straight/Heterosexual Gender identity: Female Cognitive needs: No Hearing needs: No Vision needs: No Review of Systems Const Denies daytime sleepiness, Denies difficulty sleeping, Denies snoring, Denies stops breathing during sleep and Denies weakness Card Reports chest pain, Denies rapid heart rate, Reports irregular heart rhythm, Denies claudication, Denies leg edema, Reports lightheadedness, Denies palpitations, Denies dyspnea, Denies dyspnea on exertion, Denies orthopnea, Denies paroxysmal nocturnal dyspnea and Denies slow heart rate Resp Denies cough, Denies dyspnea, Denies dyspnea on exertion and Denies snoring GI Reports no additional complaints, Denies hematochezia, Denies change in stool character and Denies dyspepsia Musc Denies abnormal gait, Denies muscle weakness and Denies numbness Neuro Denies abnormal gait, Denies numbness and Denies weakness Endo Denies palpitations Physical Exam Vital Signs: Last Vital Signs Pulse 99 08/08/25 15:23 BP 138/80 08/08/25 15:23 BMI result Body Mass Index 29.5 Const General: cooperative, healthy appearing, comfortable and no acute distress Orientation/consciousness: patient oriented x3 HEENT Head: Yes normal to inspection Neck Neck: Yes normal visual inspection, Yes trachea midline and Yes supple Chest Chest palpation & inspection: normal inspection of the chest Resp Effort & Inspection: normal respiratory effort Auscultation: clear to auscultation bilaterally, no crackles, no rales, no rhonchi and no wheezes Cardio Jugular venous distension: no JVD Palpation: normal PMI Rate: regular rate Rhythm: regular rhythm Heart sounds: S1 normal heart sound present, S2 normal heart sound present, no click, no gallops, no murmurs and no rubs Peripheral pulses: Peripheral pulses 2+ throughout GI Inspection: Yes normal to inspection Palpation (GI): Soft to palpation Auscultation: normal bowel sounds Skin General skin exam: no rashes or lesions noted Neuro General: patient oriented x3 Extrem General: Yes normal to inspection, No no pedal edema and No calf tenderness Psych Appearance: grossly normal Mental Status: mental status grossly normal Speech and movement: Normal speech and movement present Office Procedures EKG Details: EKG today showed normal sinus rhythm, rate 99 beats per minute, [place], [place]. [address]-[id number], Complete Results AMB Urinalysis, Automated UA Leukoctes 0 Denisse/uL Last Edit by LE Tabares on 08/08/25 16:12 UA Nitrite Negative Last Edit by LE Tabares on 08/08/25 16:12 UA Urobilinogen 0.2 mg/dL Last Edit by LE Tabares on 08/08/25 16:12 UA Protein 15 mg/dL Last Edit by LE Tabares on 08/08/25 16:12 UA pH 6.0 Last Edit by LE Tabares on 08/08/25 16:12 UA Blood 0 León/uL Last Edit by LE Tabares on 08/08/25 16:12 UA Specific [place] 1.030 Last Edit by LE Tabares on 08/08/25 16:12 UA Ketone Negative Last Edit by LE Tabares on 08/08/25 16:12 UA Bilirubin 0 mg/dL Last Edit by LE Tabares on 08/08/25 16:12 UA Glucose 0 mg/dL Last Edit by LE Tabares on 08/08/25 16:12 Assessment & Plan Assessment & Plan (1) Chest pain: Code(s): R07.9 - Chest pain, unspecified Category: Medical Qualifiers: Chest pain type: unspecified Qualified Code(s): R07.9 - Chest pain, unspecified (2) Syncope: Code(s): R55 - Syncope and collapse Category: Medical Qualifiers: Syncope type: unspecified Qualified Code(s): R55 - Syncope and collapse Plan 05/08/2025-echo study showed an mildly improved LV systolic function with an ejection fraction between 50-55% from 40-45% in November. Patient will try to contact the post office to track her Holter study as she states that it has been mailed out however the company has not received this. If patient can track this, we might have to repeated. Patient understanding of the plan. Patient's report of chest discomfort is atypical in nature and more likely related to stress however given her history of smoking, we will proceed with a treadmill stress test to look for ischemic changes. EKG today is normal. Blood pressure within normal limits. Advised on heart healthy diet, exercise, stress mitigation strategies, smoking cessation, and management of vascular risk factors. Follow up after testing. In the interim, patient will call the office with any concerns or change in symptoms. This note was generated using voice recognition software. While every effort has been made to ensure accuracy and proper education officer, there may be occasional errors that could affect the content or meaning of the described symptoms. Orders: Orders CA stress test Today R07.9 - Chest pain, unspecified AMB EKG-In Office Today R07.9 - Chest pain, unspecified Coding Level of Care Code Est Pt Level 4 (54753) Add On Problem Visit Only Diagnoses Chest pain R07.9 Chest pain type: unspecified Syncope, unspecified syncope type R55 Syncope type: unspecified CPT Codes EKG - CPT: 85409-[id number], Complete ([id number]) Time Spent (min) 32 Comment Time spent in reviewing the chart, test results, assessment, counseling and documentation.
[2025-08-08 15:23] VITALS: BP 138/80; PULSE 99; BMI 29.5
--- OUTSIDE RECORDS SUMMARY | 2025-08-08 23:45 | XMS_ITS | Encounter Summary ---
Author Organization [facility] Address [address] [place] [phone] Phone Care Team Providers Care Blast Furnace Auxiliaries Supervisor Name Role Phone Lilliana Mosqueda MD Primary Care Provider [phone] Lilliana Mosqueda MD Unavailable [phone] Leora Avina MD Unavailable [phone] Bharath Orozco CNP Unavailable [phone] Lilliana Mosqueda MD Unavailable [phone] Deysi Poe RN Unavailable Encounter Details Date Type Department Care Team (Late st Contact Info) Description 08/10/2018 Procedure Pass [facility] Endoscopy Admitting Dept Virtual Department [address] [place] [address] Social History Tobacco Use Types Packs/Day Years [...] on filedocumented in this encounter Care Teams Blast Furnace Auxiliaries Supervisor Relationship Specialty Start Date End Date Lilliana Mosqueda MD PCP - General 06/15/17 Lilliana Mosqueda MD [address] [place] [address] Historical LMR Provider 06/19/17 2 Leora Avina MD [address] [place] [address] Historical LMR Provider 06/19/17 09/06/21 Bharath Orozco CNP [address] [place] [address] Historical LMR Provider 06/19/17 09/06/21 Lilliana Mosqueda MD [address] [place] [address] Insurance Assigned Provider 01/01/18 Deysi Poe, GABRIELLA [address] [place] [address] PHCM Manager Six Sigma 08/20/20 10/04/20 documented as of this encounter Additional Source Comments The information contained in this document represents components of the legal health record. It is not the complete legal health record.[facility]
--- OUTSIDE RECORDS SUMMARY | 2025-08-08 23:45 | XMS_ITS | Clinical Summary ---
Author Organization [facility] ity Address [address] [place] [address] Care Team Providers Care Laborer Landscape Name Role Phone Lilliana Mosqueda MD Primary Care Provider [phone] Social History Tobacco Use Types Packs/Day Years [...] Depression Screening 08/30/2024 COVID-19 Vaccine ( - 2024-2 6 season) 2025 Influenza Vaccine (#1) 2025 RSV [...] age to complete this topic Care Teams Laborer Landscape Relationship Specialty Start Date End Date Lilliana Mosqueda MD [address] [place] [address] PCP - General Family Medicine 05/31/19
--- OUTSIDE RECORDS SUMMARY | 2025-08-08 23:45 | XMS_ITS | Encounter Summary ---
Author Organization [facility] Address [address] [place] [address] Phone Care Team Providers Care Tobacco Stemmer Machine Name Role Phone Lilliana Mosqueda MD Primary Care Provider [phone] Lilliana Mosqueda MD Unavailable [phone] Leora Avina MD Unavailable [phone] Bharath Orozco CNP Unavailable [phone] Lilliana Mosqueda MD Unavailable [phone] Deysi Poe RN Unavailable Encounter Details Date Type Department Care Team (Late st Contact Info) Description 02/11/2018 Procedure Pass [facility], Ct Scan - [address] [address] Social History Tobacco Use Types Packs/Day Years [...] on filedocumented in this encounter Care Teams Tobacco Stemmer Machine Relationship Specialty Start Date End Date Lilliana Mosqueda MD PCP - General 06/15/17 Lilliana Mosqueda MD [address] [place] [address] Historical LMR Provider 06/19/17 2 Leora Avina MD [address] [place] [address] Historical LMR Provider 06/19/17 09/06/21 Bharath Orozco CNP [address] [place] [address] Historical LMR Provider 06/19/17 09/06/21 Lilliana Mosqueda MD [address] [place] [address] Insurance Assigned Provider 01/01/18 Deysi Poe, GABRIELLA [address] [place] [address] PHCM Social Media Content Manager 08/20/20 10/04/20 documented as of this encounter Additional Source Comments The information contained in this document represents components of the legal health record. It is not the complete legal health record.[facility]
--- OUTSIDE RECORDS SUMMARY | 2025-08-08 23:45 | XMS_ITS | Encounter Summary ---
Author Organization [facility] Address [address] [place] [address] Phone Care Team Providers Care Conservation Officer Name Role Phone Lilliana Mosqueda MD Primary Care Provider [phone] Lilliana Mosqueda MD Unavailable [phone] Leora Avina MD Unavailable [phone] Bharath Orozco CNP Unavailable [phone] Lilliana Msoqueda MD Unavailable [phone] Deysi Poe RN Unavailable Encounter Details Date Type Department Care Team (Late st Contact Info) Description 10/20/2017 Procedure Pass [facility] Endoscopy Admitting Dept Virtual Department [address] [place] [address] Social History Tobacco Use Types Packs/Day Years [...] on filedocumented in this encounter Care Teams Conservation Officer Relationship Specialty Start Date End Date Lilliana Mosqueda MD PCP - General 06/15/17 Lilliana Mosqueda MD [address] [place] [address] Historical LMR Provider 06/19/17 2 Leora Avina MD [address] [place] [address] Historical LMR Provider 06/19/17 09/06/21 Bharath Orozco PERSONAL BANKING ADVISOR [address] [place] [address] Historical LMR Provider 06/19/17 09/06/21 Lilliana Mosqueda MD [address] [place] [address] Insurance Assigned Provider 01/01/18 Deysi Poe, GABRIELLA [address] [place] [address] PHCM Director Critical Care 08/20/20 10/04/20 documented as of this encounter Additional Source Comments The information contained in this document represents components of the legal health record. It is not the complete legal health record.[facility]
--- OUTSIDE RECORDS SUMMARY | 2025-08-08 23:45 | XMS_ITS | Encounter Summary ---
Author Organization [facility] Address [address] [place] [address] Phone Care Team Providers Care Skip Operator Name Role Phone Lilliana Mosqueda MD Primary Care Provider [phone] Lilliana Mosqueda MD Unavailable [phone] Leora Avina MD Unavailable [phone] Bharath Orozco CNP Unavailable [phone] Lilliana Mosqueda MD Unavailable [phone] Deysi Poe RN Unavailable Encounter Details Date Type Department Care Team (Late st Contact Info) Description 10/11/2017 Procedure Pass [facility], Ct Scan - [address] [address] Social History Tobacco Use Types Packs/Day Years [...] on filedocumented in this encounter Care Teams Skip Operator Relationship Specialty Start Date End Date Lilliana Mosqueda MD PCP - General 06/15/17 Lilliana Mosqueda MD [address] [place] [address] Historical LMR Provider 06/19/17 2 Leora Avina MD [address] [place] [address] Historical LMR Provider 06/19/17 09/06/21 Bharath Orozco CNP [address] [place] [address] Historical LMR Provider 06/19/17 09/06/21 Lilliana Mosqueda MD [address] [place] [address] Insurance Assigned Provider 01/01/18 Deysi Poe, GABRIELLA [address] [place] [address] PHCM Electronic Technologist 08/20/20 10/04/20 documented as of this encounter Additional Source Comments The information contained in this document represents components of the legal health record. It is not the complete legal health record.[facility]
--- OUTSIDE RECORDS SUMMARY | 2025-08-08 23:45 | XMS_ITS | Data Portability ---
Author Organization [facility] [address] Address [address] [place] [address] Assessment No assessment recorded. Plan of Treatment Reminders Order Date Submit Date Provider Last Modified By Organization Details Last Modified Time Details Appointments None recorded. Lab None recorded. Referral emergency medicine referral - Significant left hip pain - cannot ambulate - history of fracture as a child. Coming by EMS. 2022 023 [email or web address] 26 [facility] [address] [place] [address], [address], 3 07:26:15 Procedures None recorded. Surgeries None [...] pain tracking down the femur. 2022 023 [facility], [address] [facility], [place], [address], 3 19:26:28 Medication Orders None recorded. Patient TargetsNo targets recorded. Patient Instructions Encounter Date Encounter Id Patient Instructions Last Modified By Organization Details Last Modified Time 10/01/2022 [id number] Based on your ex am and presentation [...] why my recommendation is the Emergency Room. [email or web address] Not available 10/01/2022 17:11:48 Reason for Referral [...] unila teral No observ ation record ed. [email or web address] [facility] [address] [facility] [place], [address], 10/01/2022 20:31:21 Result Notes None recorded. Problems Name Problem SNOMED Code Status Onset Date Resolution Date Notes Provider Name and Address Organization Details Recorded Time Attention deficit hyperactivity disorder 133643832 Active 2022 Leonora holley, [place] - [facility] 3 15:54:19 Bipolar disorder 71656451 Active 2022 [facility] [...] Name and Address Organization Details Recorded Time 476184 Tylenol medicatio n Not available Not available Not available 10/01/2022 3 RxNorm Leonora holley, [place] - [facility] 15:51:44 252634 ibuprofen medicatio n Not available Not available Not available 10/01/2022 5640 Rx[facility] Leonora holley, [place] - [facility] 3 15:52:00 633902 Latuda medicatio n Not available Not available Not available 10/01/2022 99600 32 RxNorm Leonora holley, [place] - [facility] 3 15:52:05 182830 aspirin medicatio n Not available Not available [...] Not Available Vitals Date Recorded Oxygen saturation Pain severity - 0-10 verbal numeric rating [Score] - Reported Heart rate Respiratory rate Body temperature Body height Body mass index (BMI) Body weight Systolic And Diastolic Provider Name and Address Organization Details Last Updated DateTime 3 97 % 10 81 /min 20 /min 97.7 [degF] 165.1 cm 25.8 kg/m2 63311.8 2 g 109/76 mm[Hg] Leonora uH [place] - [facility] 3 16:28:23 Date Recorded Body height Provider Name an d Address Organization Details Last Updated DateTime 11/05/2022 165.1 cm [facility] [address] [place], [place] [address], [address], [place] - [facility] 12/01/2022 20:03:21 Social [...] ICD10 Code Diagnosis IMO Codes Diagnosis Note [id number] [facility] [address] [address] [place] [address] 10/01/2022 14:29:12 10/01/2022 17:16:29 Pain of left hip joint 9119584603 95527 M25.552 S/P fall out of bed x 1 week ago. [id number] [facility] [address] [address] [place] [address] 11/05/2022 08:18:11 12/01/2022 20:03:56 Left without being seen [phone] 9102 Z53.21 Health Concerns Section Related Observation LastModified by Organization Detai ls LastModified Time None Recorded Concern Status LastModified by Organization Details LastModified Time None Recorded Advance Directives Directive None Recorded Payers Insurance Date Sequence Insurance Name Policy Number Policy Rios Covered Member ID Rios Member ID Guarantor Name 11/02/2022 2 [place] [facility] Dominique Almnote [id number] Dominique Almonte 11/05/2022 1 [place] PRIOR TO 2022 - [facility] (MEDICAID) Dominique Almonte [id number] Dominique Almonte Notes Date Note Type Note [...] the injury. [facility] [address], [place], [address], [place] - [facility] 10/01/2022 17:47:49 OBGyn Episode No OBEpisode recorded.
--- OUTSIDE RECORDS SUMMARY | 2025-08-08 23:45 | XMS_ITS | Clinical Summary ---
Author Organization [facility] Address [address] [place] [address] Care Team Providers Care Cloth Tester Name Role Phone David Graves MD Primary Care Provider [phone] Allergies Active Allergy Reactions Criticality Noted Date [...] 2022 Influenza Vaccine 03/30/2025 COVID-19 Vaccine ( - season) 2025 Insurance [employer] Advance Directives * Full Code (Latest Code Status on File) Date Activated Date Inactivated Comments 11/22/2024 11:07 AM Care Teams Cloth Tester Relationship Specialty Start Date End Date David Graves MD [address] [place] [address] Dr Aponte, [place] [address] PCP - General Internal Medicine 11/22/24
--- OUTSIDE RECORDS SUMMARY | 2025-08-08 23:45 | XMS_ITS | Clinical Summary ---
Author Organization [facility] Address [address] [place] [address] Phone Care Team Providers Care Glassware Finisher Name Role Phone Lilliana Mosqueda MD Primary Care Provider [phone] Allergies Active Allergy Reactions Criticality Noted Date [...] Take 30 mg by mouth daily. Active HYDROcodone-emena taminophen (NORCO) 5-325 mg per tablet Take [...] 40 Admit Type: Outpatient Gender: Female Room: [place] [address] Referring MD: Lilliana Mosqueda MD Exam Type: [...] 1:11 PM Procedure Code(s): --- Professional --- 14474, Colonoscopy, flexible; with biopsy, single or multiple --- Technical --- 32129, Colonoscopy, flexible; with biopsy, single or multiple Diagnosis Code(s): --- Professional --- K64.8, Other hemorrhoids K52.9, Noninfective gastroenteritis and colitis, unspecified --- Technical --- K64.8, Other hemorrhoids K52.9, Noninfective gastroenteritis and colitis, unspecified CPT copyright 2016 [employer]. All rights reserved. The codes documented in this report are preliminary and upon appeals examiner reviewmay be revised to meet current compliance requirements. [address] [place] [address] Lilliana Mosqueda MD GI PROCEDURE ORDERABLES Final Result from Last 3 Months or Most Recently Relevant to Health Maintenance Insurance [employer] [facility] [place] [address] [place] [address] [place] [address] [place] [address] [place] [address] [place] [address] [place] [id number] Care Teams Glassware Finisher Relationship Specialty Start Date End Date Lilliana Mosqueda MD [email or web address] PCP - General 06/15/17 Additional Source Comments The information contained in this document represents components of the legal health record. It is not the complete legal health record.[facility]
--- OUTSIDE RECORDS SUMMARY | 2025-08-08 23:45 | XMS_ITS | Encounter Summary ---
Author Organization [facility] Address [address] [place] [address] Phone Care Team Providers Care Guidance Adviser Name Role Phone Lilliana Mosqueda MD Primary Care Provider [phone]- [phone] Lilliana Mosqueda MD Unavailable Leora Avina MD Unavailable Bharath Orozco CNP Unavailable [phone] Lilliana Mosqueda MD Unavailable Deysi Poe RN Unavailable Encounter Details Date Type Department Care Team (Late st Contact Info) Description 02/09/2018 Ancillary Orders Virtual Department [address] [place] [address] Jose Bland, CALOS [address] [place] [phone] [email or web address] Abdominal pain, unspecified abdominal location Social [...] location documented in this encounter Care Teams Guidance Adviser Relationship Specialty Start Date End Date Lilliana Mosqueda MD PCP - General 06/15/17 Lilliana Mosqueda MD [address] [place] [address] Historical LMR Provider 06/19/17 2 Leora Avina MD [address] [place] [address] Historical LMR Provider 06/19/17 09/06/21 Bharath Orozco CNP [address] [place] [address] Historical LMR Provider 06/19/17 09/06/21 Lilliana Mosqueda MD [address] [place] [address] Insurance Assigned Provider 01/01/18 Deysi Poe, RN [address] [place] [address] PHCM Customer Support Professional 08/20/20 10/04/20 documented as of this encounter Additional Source Comments The information contained in this document represents components of the legal health record. It is not the complete legal health record.[facility]
--- OUTSIDE RECORDS SUMMARY | 2025-08-08 23:45 | XMS_ITS | Encounter Summary ---
Author Organization [facility] Address [address] [place] [address] Phone Care Team Providers Care Manager Estate Name Role Phone Lilliana Mosqueda MD Primary Care Provider [phone]- [phone] Lilliana Mosqueda MD Unavailable [phone] Leora Avina MD Unavailable [phone] Bharath Orozco CNP Unavailable [phone] Lilliana Mosqueda MD Unavailable [phone] Deysi Poe RN Unavailable Reason for Referral * Outpatient Procedure - Closed Specialty Diagnoses / Procedures Referred By Jv bass Referred To Contact Radiology Diagnoses Early satiety Procedures NM Gastric Emptying Linda Segura PA Phone: tel: fax: Referral ID Status Reason Start Date Expiration Date Visits Re quested Visits Authorized [id number] Closed 11/26/2017 11/26/2018 1 1 Encounter Details Date Type Department Care Team (Late st Contact Info) Description 11/26/2017 Ancillary Orders Virtual Department [address] [place] [address] Linda Segura PA [address] [place] [address] Early satiety Social History Tobacco Use Types [...] the one hour time point. POS - [id number] Narrative 12/02/2017 9:58 AM EDT One millicurie [...] before the one hourtime point. POS - [id number] us Linda LIVE IMG NM ABDOMEN Final Resul t documented in this encounter Visit Diagnoses Diagnosis Early satiety Early satiety documented in this encounter Care Teams Manager Estate Relationship Specialty Start Date End Date Lilliana Mosqueda MD PCP - General 06/15/17 Lilliana Mosqueda MD [address] [place] [address] Historical LMR Provider 06/19/17 2 Leora Avina MD [address] [address] Historical LMR Provider 06/19/17 09/06/21 Bharath Orozco SUPERVISOR CYTOLOGY [address] [address] Historical LMR Provider 06/19/17 09/06/21 Lilliana Mosqueda MD [address] [place] [address] Insurance Assigned Provider 01/01/18 Deysi Poe, GABRIELLA [address] [place] [address] [facility] Technology Applications Teacher 08/20/20 10/04/20 documented as of this encounter Additional Source Comments The information contained in this document represents components of the legal health record. It is not the complete legal health record.[facility]
== END 2025-08-08 15:43 | disposition home or self-care (01) ==
LOC: HO.HCS 15:13
PROVIDERS: PCP Internal Medicine
DX: R07.9 Chest pain, unspecified (principal); R55 Syncope and collapse
CPT/HCPCS: 93010; 99214

== ENCOUNTER → 2025-08-08 15:12 | Outpatient (BNVA) | payer OTHER, SELFPAY | PROVIDERS: PCP Internal Medicine | DX: R39.16 Straining to void (principal); R39.198 Other difficulties with micturition; R07.89 Other chest pain; R55 Syncope and collapse | CPT/HCPCS: 51798; 81003; 93005; 99202; 99212 ==

== ENCOUNTER 2025-08-08 15:50 | Outpatient (AMB) | payer OTHER, SELFPAY ==
--- NOTE | 2025-08-08 15:50 | MHC.OFFVIS ---
Intake Visit Reasons: difficulty with urination/UA/PVR Intake Note: Patient is present for DIFFICULTY WITH URINATION/UA/PVR Urology Medication:NONE Antibiotic Allergy:PENICILLINS Blood Thinner:NONE Bowling Pin Setters Installer Required: No Allergies Penicillins Allergy (Severe, Verified 08/08/25 17:11) Anaphylaxis acetaminophen (From Tylenol) Allergy (Intermediate, Verified 08/08/25 17:11) Hives aspirin (ASPIRIN) Allergy (Intermediate, Verified 08/08/25 17:11) UNKNOWN gabapentin Allergy (Intermediate, Verified 08/08/25 17:11) Hives varenicline (From CHANTIX) Allergy (Intermediate, Verified 08/08/25 17:11) HIVES ibuprofen Allergy (Verified 08/08/25 17:11) Anaphylaxis lurasidone (From Latuda) Allergy (Verified 08/08/25 17:11) Unknown Bees Allergy (Intermediate, Uncoded 08/08/25 17:11) Anaphylaxis cefuroxime Allergy (Mild, Uncoded 08/08/25 17:11) Itching Medication List - Last Reconciled 08/08/25 by DAVID Carrasco- aripiprazole 10 mg PO DAILY clonazepam 1 mg PO BID PRN hydrocortisone 2.5% (Proctosol HC) 1 appl WI BID-QID PRN lisdexamfetamine (Vyvanse) 20 mg PO QAM magnesium oxide 400 mg PO BEDTIME omeprazole 20 mg PO DAILY prucalopride (Motegrity) 2 mg PO DAILY rimegepant (Nurtec ODT) 75 mg PO DAILY PRN 30 days MDD 1 tab sennosides-docusate sodium 8.6-50 mg (Senna Plus) 2 tab-caps (2 x 8.6-50 mg) PO BEDTIME venlafaxine ER 37.5 mg PO DAILY HPI Comments Details: Dominique is a very pleasant 50-year-old female patient of Dr. Branch. She has a past medical history of seizures in childhood, cervical cancer, Badillo's esophagus, hiatal hernia. She presents to the office today as a new patient for difficulty urinating. In discussion with the patient today she reports noting over the last several months she has been having to strain with urination in order to initiate urinary stream. She does report a previous history in her early 20s having fractured her pelvis. She otherwise denies any previous trauma. In office urinalysis results with the patient today. PVR 0 mL. In review of patient's chart it appears she has had recent abdominal imaging earlier this year in November and kidneys were noted to be within normal limits. She otherwise denies urinary urgency, urinary frequency, incontinence, nocturia, hematuria, dysuria, foul smelling urine, changes to urinary stream, flank pain, fever, and or chills. We did discussed and reviewed potential causes of straining with urination. We discussed further treatment options and risks and benefits of these treatment options. All questions were answered. She otherwise offers no other issues or concerns at this time. [facility] Medical History Chest pain Seizure in childhood Vomiting Tongue swelling Trichomonas infection Cervical cancer Badillo's esophagus Encounter for screening colonoscopy (~2019) Hiatal hernia Surgical History H/O endoscopy (~2019) S/P tonsillectomy H/O: hysterectomy (~1999) Family History Other Adopted Social History Household Members: Significant Other Housing: Apartment Alcohol intake: never Patient Tobacco Use Status: Current everyday Tobacco user Tobacco use type: Cigarette Cigarettes Per Day: 6 Years Smoked: 26 e-Cigarette/Vaping Use: Never Used Second Hand Smoke Exposure: Yes Substance Use Type: Marijuana service: No Current occupational status: unemployed Sexual orientation: Straight/Heterosexual Gender identity: Female Cognitive needs: No Hearing needs: No Vision needs: No Review of Systems Const All systems reviewed & are unremarkable except as noted in HPI and below Physical Exam Const General: cooperative, comfortable, no acute distress, well developed, alert and awake Orientation/consciousness: patient oriented x3 Limitations: no limitations HEENT Head: Yes normal to inspection, Yes normocephalic and Yes atraumatic Ears: hearing grossly normal bilaterally Eyes General: appearance normal, both eyes and all related structures Neck Neck: Yes normal visual inspection and Yes trachea midline Chest Chest palpation & inspection: normal inspection of the chest Resp Effort & Inspection: normal respiratory effort and able to speak in complete sentences Cardio Rate: regular rate GI Inspection: Yes normal to inspection General: Yes no CVA tenderness Back/Spine/Pelvis Back: no CVA tenderness Skin General skin exam: no rashes or lesions noted Neuro General: patient oriented x3 Extrem General: Yes normal to inspection Psych Appearance: grossly normal and well kempt Mental Status: mental status grossly normal Speech and movement: Normal speech and movement present and Clear speech present Affect: normal affect Attitude: cooperative Thought process: Normal thought process present Thought content: Normal thought content present Insight: Fair insight present (Psych) Judgement: Fair judgement present (Psych) Office Procedures Post Void Residual Post Residual Void Post Void Residual (PVR): 0 42426-Fsvt Void Residual by ultrasound Results AMB Urinalysis, Automated UA Leukoctes 0 Denisse/uL Last Edit by LE Tabares on 08/08/25 16:12 UA Nitrite Negative Last Edit by LE Tabares on 08/08/25 16:12 UA Urobilinogen 0.2 mg/dL Last Edit by LE Tabares on 08/08/25 16:12 UA Protein 15 mg/dL Last Edit by Rosalind Crawford CCM on 08/08/25 16:12 UA pH 6.0 Last Edit by LE Tabares on 08/08/25 16:12 UA Blood 0 León/uL Last Edit by LE Tabares on 08/08/25 16:12 UA Specific [place] 1.030 Last Edit by LE Tabares on 08/08/25 16:12 UA Ketone Negative Last Edit by LE Tabaers on 08/08/25 16:12 UA Bilirubin 0 mg/dL Last Edit by Rosalind Crawford CCM on 08/08/25 16:12 UA Glucose 0 mg/dL Last Edit by LE Tabares on 08/08/25 16:12 Results Reviewed Results Reviewed: Laboratory Last Values Urine pH (Auto) 6.0 08/08/25 15:53 Specific [place] (Auto) 1.030 08/08/25 15:53 Urine Protein (Auto) 15 mg/dL 08/08/25 15:53 Glucose (UA)(Auto) 0 mg/dL 08/08/25 15:53 Urine Ketones (Auto) Negative 08/08/25 15:53 Urine Blood (Auto) 0 León/uL 08/08/25 15:53 Urine Nitrite (Auto) Negative 08/08/25 15:53 Urine Bilirubin (Auto) 0 mg/dL 08/08/25 15:53 Urine Urobilinogen (Auto) 0.2 mg/dL 08/08/25 15:53 Leukocyte Esterase (Auto) 0 Denisse/uL 08/08/25 15:53 Assessment & Plan Assessment & Plan (1) Straining on urination: Code(s): R39.16 - Straining to void Category: Medical (2) Difficulty urinating: Code(s): R39.198 - Other difficulties with micturition Category: Medical Plan In office urinalysis results with the patient today; as noted above. PVR 0 mL. Most recent abdominal imaging results reviewed with the patient today; as noted above. All questions were answered. We did discussed potential causes of straining with urination as well as further treatment options and risks and benefits of these treatment options. All questions were answered. Will obtain bladder ultrasound for further assessment evaluation. Will refer to pelvic floor therapy for further assessment evaluation. Follow-up in 4-6 months with imaging and PVR; or sooner with any issues, concerns, and or questions. Orders: Orders AMB Urinalysis Automated Today Z13.9 - Encounter for screening, unspecified US bladder Today R39.16 - Straining to void Referrals Pelvic Parachute Marker Referral R39.16 - Straining to void, R39.198 - Other difficulties with micturition Patient Instructions: The patient had an opportunity to ask questions regarding the treatment plan. All questions were answered. Physical exam, labs, and imaging were discussed and reviewed in detail. As well as risks, benefits, and discussion of treatment choices. No major barriers to understanding were identified. The patient expressed understanding and agreement with the above treatment plan. The patient was made aware they should contact our office by phone for worsening of their current condition, the appearance of new symptoms, or with any questions or concerns. Compliance is encouraged with any medications and follow up testing that is ordered. It is a privilege to be allowed the opportunity to participate in? your urological care.? Again, if you have any questions or concerns If you have any questions or concerns please do not hesitate to contact me. The office is [phone]. This note is constructed using voice recognition software. While every effort has been made to ensure accuracy strategy manager errors may have been included. Yours sincerely, DAVID Carrasco-DARIAN Coding Level of Care Code New Pt Level 3 (60894) Diagnoses Straining on urination R39.16 Difficulty urinating R39.198 CPT Codes Post Residual Void - PVR CPT Code: 05029-Rrsa Void Residual by ultrasound ([id number])
== END 2025-08-08 16:21 | disposition home or self-care (01) ==
LOC: HO.HUSH 15:50
PROVIDERS: PCP Internal Medicine; Visit Provider Nurse Practitioner Family
DX: R39.16 Straining to void (principal); R39.198 Other difficulties with micturition; Z13.9 Encounter for screening, unspecified
CPT/HCPCS: 99203

== ENCOUNTER 2025-08-10 16:21 | Outpatient (AMB) | payer OTHER, SELFPAY ==
--- NOTE | 2025-08-10 16:28 | MHC.PC.OV ---
Vital Signs 08/10/25 16:32 Height 5 ft 5 in Weight 178 lb BMI 29.6 BP 118/88 Blood Pressure Location Lt brachial Position Sitting Respiration 18 Pulse 93 Pulse Source Pulse Oximeter Temp Source Temporal Artery Scan Pulse Oximetry (%) 96 Oxygen Delivery Method Room Air Intake Visit Reasons: follow up Supplier Quality Required: No Accompanied by: Self / Same As Patient Allergies Penicillins Allergy (Severe, Verified 08/10/25 16:33) Anaphylaxis acetaminophen (From Tylenol) Allergy (Intermediate, Verified 08/10/25 16:33) Hives aspirin (ASPIRIN) Allergy (Intermediate, Verified 08/10/25 16:33) UNKNOWN gabapentin Allergy (Intermediate, Verified 08/10/25 16:33) Hives varenicline (From CHANTIX) Allergy (Intermediate, Verified 08/10/25 16:33) HIVES ibuprofen Allergy (Verified 08/10/25 16:33) Anaphylaxis lurasidone (From Latuda) Allergy (Verified 08/10/25 16:33) Unknown Bees Allergy (Intermediate, Uncoded 08/08/25 17:11) Anaphylaxis cefuroxime Allergy (Mild, Uncoded 08/08/25 17:11) Itching Medication List - Last Reconciled 08/10/25 by Álvaro Graham MD aripiprazole 10 mg PO DAILY clonazepam 1 mg PO BID PRN hydrocortisone 2.5% (Proctosol HC) 1 appl LA BID-QID PRN lisdexamfetamine (Vyvanse) 20 mg PO QAM magnesium oxide 400 mg PO BEDTIME omeprazole 20 mg PO DAILY prucalopride (Motegrity) 2 mg PO DAILY rimegepant (Nurtec ODT) 75 mg PO DAILY PRN 30 days MDD 1 tab sennosides-docusate sodium 8.6-50 mg (Senna Plus) 2 tab-caps (2 x 8.6-50 mg) PO BEDTIME venlafaxine ER 37.5 mg PO DAILY Tobacco use date assessed: 08/10/25 Dental Screening Dental Screen Date: 08/10/25 Did you have a dental visit in the last 12 months?: Yes Did you have a dental problem in the last 6 months where you did not have access to dental care?: No Was dental information given to patient?: Patient has dentist HPI HPI Comments History of Present Illness Details The patient is a 50 year old female presenting for follow-up regarding a recent hospitalization which led to the discovery of a high white blood cell count. On July 25, the patient felt acutely unwell with severe chills, shaking despite using five blankets and a heating blanket, and her tongue turned white. She subsequently had an episode of coffee ground emesis, prompting a visit to the hospital in [place], [place]. At the hospital, staff had difficulty establishing IV access, succeeding only after five attempts, one of which was ultrasound-guided. Blood work revealed a white blood cell count of 26.6, prompting a recommendation for admission. However, after she stepped outside to think, she was refused readmission and was told she left against medical advice (AMA). During the hospital visit, she underwent a non-contrast CT scan, and tests for flu and RSV were negative. Her vital signs were stable, with a blood pressure of 106/69 mmHg and no fever, though she reported an initial fever reading. Other labs, including hemoglobin (14.3), lactic acid (1.7), creatinine, and liver enzymes, were within normal limits. The patient reports significant ongoing post-hospitalization symptoms, including constant fatigue and generalized pain. [facility] Medical History Chest pain Seizure in childhood Vomiting Tongue swelling Trichomonas infection Cervical cancer Badillo's esophagus Encounter for screening colonoscopy (~2019) Hiatal hernia Surgical History H/O endoscopy (~2019) S/P tonsillectomy H/O: hysterectomy (~1999) Family History Other Adopted Social History Household Members: Significant Other Housing: Apartment Alcohol intake: never Patient Tobacco Use Status: Current everyday Tobacco user Tobacco use type: Cigarette Cigarettes Per Day: 6 Years Smoked: 26 e-Cigarette/Vaping Use: Never Used Second Hand Smoke Exposure: Yes Substance Use Type: Marijuana service: No Current occupational status: unemployed Sexual orientation: Straight/Heterosexual Gender identity: Female Cognitive needs: No Hearing needs: No Vision needs: No Questionnaire Thrive Questionnaire Date Thrive assessed: 08/10/25 I am a: Patient What is your living situation today?: I have a steady place to live Within the past 12 months, did the food you bought not last and you didn't have the money to get more?: Sometimes True Within the past 12 months, did you worry whether your food would run out before you got money to buy more?: I choose not to answer this question Do you have trouble paying for medicines?: No Do you have trouble getting transportation to medical appointments?: No Do you have trouble paying your heating and electricity bill?: No Do you have trouble taking care of your child, family member or friend?: No Do you have trouble with day-to-day activities such as bathing, preparing meals, shopping, managing finances, etc.?: Yes Are you currently unemployed and looking for a job?: No Are you interested in more education?: No Please select the resources that you would like help with: None Currently or been in a relationship where the following occur: No concerns reported THRIVE Score: 1 JOVITA-7 AMB Questionnaire JOVITA-7 Date JOVITA - 7 assessed: 07/30/25 Source: Developed by Drs. Obi Eden, Danitza Funk, Jose Guadalupe Sweeney and colleagues, with an educational jennifer from [employer]. Review of Systems Const Details: As per HPI. Physical exam (Primary Care) Vital Signs: Last Vital Signs Pulse 93 08/10/25 16:32 Resp 18 08/10/25 16:32 BP 118/88 08/10/25 16:32 Pulse Ox 96 08/10/25 16:32 Oxygen Delivery Method Room Air 08/10/25 16:32 BMI result Body Mass Index 29.6 Tobacco/Smoking Status: Tobacco use Status Tobacco use date assessed 08/10/25 08/10/25 16:36 Patient Tobacco Use Status Current everyday Tobacco 08/10/25 16:32 Tobacco use type Cigarette 08/10/25 16:32 e-Cigarette/Vaping Use Never Used 08/10/25 16:32 Thrive Assessment: Date of Thrive Assessment Date Thrive assessed 08/10/25 08/10/25 16:36 Currently or been in a relationship where the following occur: No concerns reported Const Other: Pertinent findings are in BOLD GENERAL APPEARANCE NAD, activity normal for age, well developed/ well nourished, no cyanosis, pallor, or diaphoresis. EYES lids/conjunctiva normal. EARS/NOSE/THROAT Mucous membranes moist, nares normal, lips/teeth normal uvula midline without oral pharyngeal erythema, exudate or swelling TMs normal bilaterally. No lymphangitis/lymphedema. HEAD/NECK normocephalic atraumatic, no facial trauma, neck is supple. RESPIRATORY respiratory effort normal, speaks in full sentences, no tripod position, no accessory muscle use. Lungs clear to auscultation without rhonchi, wheezes, rales CARDIAC Regular rate and rhythm, no edema. ABDOMINAL Soft, ND/NT. No evidence of fluid wave. No pulsatile masses on exam, rebound tenderness, Bloom sign or pain over Mcburney's point. MUSCLES/EXTREMITIES No abnormal range of motion, no swelling. SKIN Warm, pink and dry. No rashes, dermatoses, petechiae or lesions. NEUROLOGICAL Speech is clear and appropriate. Normal level of consciousness. Gait and coordination are normal. 5/5 strength in all extremities. PSYCH Normal mood and affect. Judgement/competence is appropriate Coding Level of Care Code Est Pt Level 3 (63548) Diagnoses Leukocytosis D72.829 Time Spent (min) 30 Assessment & Plan Assessment & Plan (1) Leukocytosis: Code(s): D72.829 - Elevated white blood cell count, unspecified Category: Medical Plan: - The patient presented with a markedly elevated white blood cell count of 26.6 during a recent hospital visit for acute symptoms. - To assess the current status of the leukocytosis, a repeat blood test is recommended. - Depending on the results, if the white blood cell count remains elevated, the patient is advised to return to the emergency department for further evaluation, given the lack of clear localizing symptoms. Plan I reviewed the patient's recent hospital records, noting the significantly elevated white blood cell count of 26.6 and her report of hematemesis. I explained that repeating her blood tests is the necessary next step to determine if her white count is still high. We discussed her significant difficulties and anxiety with blood draws, but I emphasized the importance of attempting to get the labs done today to inform further decisions, as there are no clear symptoms to pinpoint the cause of her issues. I informed her that if her white count remains elevated, she should return to the emergency department for a more thorough workup. She agreed with this plan. Orders: Orders Complete Blood Count Auto Diff Today D72.829 - Elevated white blood cell count, unspecified
[2025-08-10 16:32] VITALS: BP 118/88; PULSE 93; RESP 18; O2SAT 96; BMI 29.6
--- OUTSIDE RECORDS SUMMARY | 2025-08-10 20:43 | XMS_ITS | Encounter Summary ---
Author Organization [facility] Address [address] [place] [address] Phone Care Team Providers Care Air Traffic Supervisor Name Role Phone Lilliana Mosqueda MD Primary Care Provider [phone] Lilliana Mosqueda MD Unavailable [phone] Leora Avina MD Unavailable [phone] Bharath Orozco CNP Unavailable [phone] Lilliana Mosqueda MD Unavailable [phone] Deysi Poe RN Unavailable Encounter Details Date Type Department Care Team (Late st Contact Info) Description 10/20/2017 Procedure Pass [facility] Endoscopy Admitting Dept Virtual Department [address] [place] [address] Social History Tobacco Use Types Packs/Day Years [...] on filedocumented in this encounter Care Teams Air Traffic Supervisor Relationship Specialty Start Date End Date Lilliana Mosqueda MD PCP - General 06/15/17 Lilliana Mosqueda MD [address] [place] [address] Historical LMR Provider 06/19/17 2 Leora Avina MD [address] [place] [address] Historical LMR Provider 06/19/17 09/06/21 Bharath Orozco DIRECTOR OF DISTRICT OFFICE [address] [place] [address] Historical LMR Provider 06/19/17 09/06/21 Lilliana Mosqueda MD [address] [place] [address] Insurance Assigned Provider 01/01/18 Deysi Poe, GABRIELLA [address] [place] [address] PHCM Spinning Lathe Operator 08/20/20 10/04/20 documented as of this encounter Additional Source Comments The information contained in this document represents components of the legal health record. It is not the complete legal health record.[facility]
--- OUTSIDE RECORDS SUMMARY | 2025-08-10 20:43 | XMS_ITS | Encounter Summary ---
Author Organization [facility] Address [address] [place] [address] Phone Care Team Providers Care Drive Tester Name Role Phone Lilliana Mosqueda MD Primary Care Provider [phone] Lilliana Mosqueda MD Unavailable [phone] Leora Avina MD Unavailable [phone] Bharath Orozco CNP Unavailable [phone] Lilliana Mosqueda MD Unavailable [phone] Deysi Poe RN Unavailable Encounter Details Date Type Department Care Team (Late st Contact Info) Description 02/11/2018 Procedure Pass [facility], Ct Scan - [address] [address] Social History Tobacco Use Types Packs/Day Years [...] on filedocumented in this encounter Care Teams Drive Tester Relationship Specialty Start Date End Date Lilliana Mosqueda MD PCP - General 06/15/17 Lilliana Mosqueda MD [address] [place] [address] Historical LMR Provider 06/19/17 2 Leora Avina MD [address] [place] [address] Historical LMR Provider 06/19/17 09/06/21 Bharath Orozco CNP [address] [place] [address] Historical LMR Provider 06/19/17 09/06/21 Lilliana Mosqueda MD [address] [place] [address] Insurance Assigned Provider 01/01/18 Deysi Poe, GABRIELLA [address] [place] [address] PHCM Open Hearth Melter 08/20/20 10/04/20 documented as of this encounter Additional Source Comments The information contained in this document represents components of the legal health record. It is not the complete legal health record.[facility]
--- OUTSIDE RECORDS SUMMARY | 2025-08-10 20:43 | XMS_ITS | Clinical Summary ---
Author Organization [facility] Address [address] [place] [address] Care Team Providers Care Manager Plant Name Role Phone Lilliana Mosqueda MD Primary [...] age to complete this topic Care Teams Manager Plant Relationship Specialty Start Date End Date Lilliana Mosqueda MD [address] [place] [address] PCP - General Family Medicine 05/31/19
--- OUTSIDE RECORDS SUMMARY | 2025-08-10 20:43 | XMS_ITS | Encounter Summary ---
Author Organization [facility] Address [address] [place] [address] Phone Care Team Providers Care Life Enrichment Director Name Role Phone Lilliana Mosqueda MD Primary Care Provider [phone] Lilliana Mosqueda MD Unavailable [phone] Leora Avina MD Unavailable [phone] Bharath Orozco CNP Unavailable [phone] Lilliana Mosqueda MD Unavailable [phone] Deysi Poe RN Unavailable Reason for Referral * Outpatient Procedure - Closed Specialty Diagnoses / Procedures Referred By Jv bass Referred To Contact Radiology Diagnoses Early satiety Procedures NM Gastric Emptying Linda Segura PA Phone: tel: fax: Referral ID Status Reason Start Date Expiration Date Visits Re quested Visits Authorized [id number] Closed 11/26/2017 11/26/2018 1 1 Encounter Details Date Type Department Care Team (Late st Contact Info) Description 11/26/2017 Ancillary Orders Virtual Department [address] [place] [address] Linda Segura PA [address] [place] [address] Early satiety Social History Tobacco Use Types [...] the one hour time point. POS - [id number] Narrative 12/02/2017 9:58 AM EDT One millicurie [...] before the one hourtime point. POS - [id number] us Linda LIVE IMG NM ABDOMEN Final Resul t documented in this encounter Visit Diagnoses Diagnosis Early satiety Early satiety documented in this encounter Care Teams Life Enrichment Director Relationship Specialty Start Date End Date Lilliana Mosqueda MD PCP - General 06/15/17 Lilliana Mosqueda MD [address] [place] [address] Historical LMR Provider 06/19/17 2 Leora Avina MD [address] [address] Historical LMR Provider 06/19/17 09/06/21 Bharath Orozco L[employer]CHO[employer] MUSIC TEACHER [address] [address] Historical LMR Provider 06/19/17 09/06/21 Lilliana Mosqueda MD [address] [place] [address] Insurance Assigned Provider 01/01/18 Deysi Poe, GABRIELLA [address] [place] [address] [facility] Wildlife Refuge Specialist 08/20/20 10/04/20 documented as of this encounter Additional Source Comments The information contained in this document represents components of the legal health record. It is not the complete legal health record.[facility]
--- OUTSIDE RECORDS SUMMARY | 2025-08-10 20:43 | XMS_ITS | Encounter Summary ---
Author Organization [facility] Address [address] [place] [address] Phone Care Team Providers Care Activity Therapist Name Role Phone Lilliana Mosqueda MD Primary Care Provider [phone] Lilliana Mosqueda MD Unavailable [phone] Leora Avina MD Unavailable [phone] Bharath Orozco CNP Unavailable [phone] Lilliana Mosqueda MD Unavailable Deysi Poe RN Unavailable Encounter Details Date Type Department Care Team (Late st Contact Info) Description 02/09/2018 Ancillary Orders Virtual Department [address] [place] [address] Jose Bland, CALOS [address] [place] [phone] [email or web address] Abdominal pain, unspecified abdominal location [...] location documented in this encounter Care Teams Activity Therapist Relationship Specialty Start Date End Date Lilliana Mosqueda MD PCP - General 06/15/17 Lilliana Mosqueda MD [address] [place] [address] Historical LMR Provider 06/19/17 2 Leora Avina MD [address] [place] [address] Historical LMR Provider 06/19/17 09/06/21 Bharath Orozco CNP [address] [place] [address] Historical LMR Provider 06/19/17 09/06/21 Lilliana Mosqueda MD [address] [place] [address] Insurance Assigned Provider 01/01/18 Deysi Poe, RN [address] [place] [address] PHCM Guide Foreign Tour 08/20/20 10/04/20 documented as of this encounter Additional Source Comments The information contained in this document represents components of the legal health record. It is not the complete legal health record.[facility]
--- OUTSIDE RECORDS SUMMARY | 2025-08-10 20:43 | XMS_ITS | Clinical Summary ---
Author Organization [facility] Address [address] [place] [address] Care Team Providers Care Wirer Helper Name Role Phone David Graves MD Primary Care Provider [phone]- [phone] Allergies Active Allergy Reactions Criticality Noted Date [...] Inactivated Comments 11/22/2024 11:07 AM Care Teams Wirer Helper Relationship Specialty Start Date End Date David Graves MD [address] [place] [address] Dr Aponte, [place]O [address] PCP - General Internal Medicine 11/22/24
--- OUTSIDE RECORDS SUMMARY | 2025-08-10 20:43 | XMS_ITS | Encounter Summary ---
Author Organization [facility] Address [address] [place] [address] Phone Care Team Providers Care Dining Server Name Role Phone Lilliana Mosqueda MD Primary Care Provider [phone] Lilliana Mosqueda MD Unavailable [phone] Leora Avina MD Unavailable [phone] Bharath Orozco CNP Unavailable [phone] Lilliana Mosqueda MD Unavailable [phone] Deysi Poe RN Unavailable Encounter Details Date Type Department Care Team (Late st Contact Info) Description 10/11/2017 Procedure Pass [facility], Ct Scan - [address] [address] Social History Tobacco Use Types Packs/Day Years [...] on filedocumented in this encounter Care Teams Dining Server Relationship Specialty Start Date End Date Lilliana Mosqueda MD PCP - General 06/15/17 Lilliana Mosqueda MD [address] [place] [address] Historical LMR Provider 06/19/17 2 Leora Avina MD [address] [place] [address] Historical LMR Provider 06/19/17 09/06/21 Bharath Orozco CNP [address] [place] [address] Historical LMR Provider 06/19/17 09/06/21 Lilliana Mosqueda MD [address] [place] [address] Insurance Assigned Provider 01/01/18 Deysi Poe, GABRIELLA [address] [place] [address] PHCM Farmer And Grazier 08/20/20 10/04/20 documented as of this encounter Additional Source Comments The information contained in this document represents components of the legal health record. It is not the complete legal health record.[facility]
--- OUTSIDE RECORDS SUMMARY | 2025-08-10 20:43 | XMS_ITS | Encounter Summary ---
Author Organization [facility] Address [address] [place] [address] Phone Care Team Providers Care Saturator Tender Name Role Phone Lilliana Mosqueda MD Primary Care Provider [phone] Lilliana Mosqueda MD Unavailable [phone] Leora Avnia MD Unavailable [phone] Bharath Orozco CNP Unavailable [phone] Lilliana Mosqueda MD Unavailable [phone] Deysi Poe RN Unavailable Encounter Details Date Type Department Care Team (Late st Contact Info) Description 08/10/2018 Procedure Pass [facility] Endoscopy Admitting Dept Virtual Department [address] [place] [address] Social History Tobacco Use Types Packs/Day Years [...] on filedocumented in this encounter Care Teams Saturator Tender Relationship Specialty Start Date End Date Lilliana Mosqueda MD PCP - General 06/15/17 Lilliana Mosqueda MD [address] [place] [address] Historical LMR Provider 06/19/17 2 Leora Avina MD [address] [place] [address] Historical LMR Provider 06/19/17 09/06/21 Bharath Orozco CNP [address] [place] [address] Historical LMR Provider 06/19/17 09/06/21 Lilliana Mosqueda MD [address] [place] [address] Insurance Assigned Provider 01/01/18 Deysi Poe, GABRIELLA [address] [place] [address] PHCM Tamale Machine Feeder 08/20/20 10/04/20 documented as of this encounter Additional Source Comments The information contained in this document represents components of the legal health record. It is not the complete legal health record.[facility]
--- OUTSIDE RECORDS SUMMARY | 2025-08-10 20:43 | XMS_ITS | Data Portability ---
Author Organization [facility], [address] Address [address] [place] [address] Assessment No assessment recorded. Plan of Treatment Reminders Order Date Submit Date Provider Last Modified By Organization Details Last Modified Time Details Appointments None recorded. Lab None recorded. Referral emergency medicine referral - Significant left hip pain - cannot ambulate - history of fracture as a child. Coming by EMS. 2022 023 [email or web address] 26 [facility] [address] [place] [address], [address], 3 07:26:15 Procedures None recorded. Surgeries None [...] pain tracking down the femur. 2022 023 [facility], [address] [facility], [place], [address], 3 19:26:28 Medication Orders None recorded. Patient TargetsNo targets recorded. Patient Instructions Encounter Date Encounter Id Patient Instructions Last Modified By Organization Details Last Modified Time 10/01/2022 [id number] Based on your ex am and presentation [...] why my recommendation is the Emergency Room. [email or web address] Not available 10/01/2022 17:11:48 Reason for Referral [...] unila teral No observ ation record ed. [email or web address] [facility] [address] [facility] [place], [address], 10/01/2022 20:31:21 Result Notes None recorded. Problems Name Problem SNOMED Code Status Onset Date Resolution Date Notes Provider Name and Address Organization Details Recorded Time Attention deficit hyperactivity disorder 632387273 Active 2022 Leonora holley, [place] - [facility] 3 15:54:19 Bipolar disorder 70779301 Active 2022 [facility] - [facility] [...] Name and Address Organization Details Recorded Time 515280 Tylenol medicatio n Not available Not available Not available 10/01/2022 3 RxNorm Leonora holley, PA - [facility] 15:51:44 076879 ibuprofen medicatio n Not available Not available Not available 10/01/2022 5640 RxNorm Leonora holley, PA - [facility] 3 15:52:00 636115 Latuda medicatio n Not available Not available Not available 10/01/2022 88162 32 RxNorm Leonora holley, PA - [facility] 3 15:52:05 429936 aspirin medicatio n Not available Not available [...] /min 97.7 [degF] 165.1 cm 25.8 kg/m2 76665.8 2 g 109/76 mm[Hg] Leonora Hu PA - [facility] 3 16:28:23 Date Recorded Body height Provider Name an d Address Organization Details Last Updated DateTime 11/05/2022 165.1 cm [facility] CASTILLO [address] [place], [place] [address], [address], PA - [facility] 12/01/2022 20:03:21 Social [...] ICD10 Code Diagnosis IMO Codes Diagnosis Note [id number] [facility] [address] [place] [address] 10/01/2022 14:29:12 10/01/2022 17:16:29 Pain of left hip joint 8030402486 23859 M25.552 S/P fall out of bed x 1 week ago. [id number] [facility] [address] [place] [address] 11/05/2022 08:18:11 12/01/2022 20:03:56 Left without being seen [id number] 9102 Z53.21 Health Concerns Section Related Observation LastModified by Organization Detai ls LastModified Time None Recorded Concern Status LastModified by Organization Details LastModified Time None Recorded Advance Directives Directive None Recorded Payers Insurance Date Sequence Insurance Name Policy Number Policy Rios Covered Member ID Rios Member ID Guarantor Name 11/02/2022 2 [place] [facility] Dominique Almonte [id number] Dominique Almonte 11/05/2022 1 [place] PRIOR TO 2022 - [facility] (MEDICAID) Dominique Almonte [id number] Dominique Almonte Notes Date Note Type Note [...] [facility] CASTILLO [address], [place], [address], [place] - [facility] 10/01/2022 17:47:49 OBGyn Episode No OBEpisode recorded.
--- OUTSIDE RECORDS SUMMARY | 2025-08-10 20:43 | XMS_ITS | Clinical Summary ---
Author Organization [facility] Address [address] [place] [address] Phone Care Team Providers Care Grocery Buyer Name Role Phone Lilliana Mosqueda MD Primary Care Provider [phone] Allergies Active Allergy Reactions Criticality Noted Date [...] 40 Admit Type: Outpatient Gender: Female Room: [place] [address] Referring MD: Lilliana Mosqueda MD Exam Type: [...] 1:11 PM Procedure Code(s): --- Professional --- 79221, Colonoscopy, flexible; with biopsy, single or multiple --- Technical --- 54896, Colonoscopy, flexible; with biopsy, single or multiple Diagnosis Code(s): --- Professional --- K64.8, Other hemorrhoids K52.9, Noninfective gastroenteritis and colitis, unspecified --- Technical --- K64.8, Other hemorrhoids K52.9, Noninfective gastroenteritis and colitis, unspecified CPT copyright 2016 [employer]. All rights reserved. The codes documented in this report are preliminary and upon recycling manager reviewmay be revised to meet current compliance requirements. [address] [place] [address] Lilliana Mosqueda MD GI PROCEDURE ORDERABLES Final Result from Last 3 Months or Most Recently Relevant to Health Maintenance Insurance [employer]CO [facility] [place] [address] [place] [address] [place] [address] [place] [address] [place] [address] [place] [address] [place] [address] Care Teams Grocery Buyer Relationship Specialty Start Date End Date Lilliana Mosqueda MD [email or web address] PCP - General 06/15/17 Additional Source Comments The information contained in this document represents components of the legal health record. It is not the complete legal health record.[facility]
== END 2025-08-10 17:12 | disposition home or self-care (01) ==
LOC: HO.HMCH 16:21
PROVIDERS: PCP Internal Medicine; Visit Provider Internal Medicine
DX: D72.829 Elevated white blood cell count, unspecified (principal)

== ENCOUNTER → 2025-08-10 16:21 | Outpatient (BNVA) | payer OTHER, SELFPAY | PROVIDERS: PCP Internal Medicine; Visit Provider Internal Medicine | DX: D72.829 Elevated white blood cell count, unspecified (principal); R53.82 Chronic fatigue, unspecified; R52 Pain, unspecified | CPT/HCPCS: 99212 ==

== ENCOUNTER 2025-08-15 15:25 | Outpatient (AMB) | payer OTHER, SELFPAY ==
--- NOTE | 2025-08-15 15:28 | MHC.OFFVIS ---
Vital Signs 08/15/25 15:34 Height 5 ft 5 in Weight 178 lb BMI 29.6 BP 116/62 Blood Pressure Location Rt brachial Position Sitting Pulse 70 Pulse Source Pulse Oximeter Pulse Oximetry (%) 97 Oxygen Delivery Method Room Air Intake Visit Reasons: CHARLIE >6 mos. Melena FUV. Intake Note: Est pt for mgmt of GERD + IBS. Chief Complaint; C/O GI + rectal discomfort, intermittent constipation despite current therapies. Pt states that her GERD has been well controlled lately. She feels that the motegrity is helpful but does not resolve her symptoms. Machine Sand Mixer Required: No Accompanied by: Family/Other Allergies Penicillins Allergy (Severe, Verified 08/10/25 16:33) Anaphylaxis acetaminophen (From Tylenol) Allergy (Intermediate, Verified 08/10/25 16:33) Hives aspirin (ASPIRIN) Allergy (Intermediate, Verified 08/10/25 16:33) UNKNOWN gabapentin Allergy (Intermediate, Verified 08/10/25 16:33) Hives varenicline (From CHANTIX) Allergy (Intermediate, Verified 08/10/25 16:33) HIVES ibuprofen Allergy (Verified 08/10/25 16:33) Anaphylaxis lurasidone (From Latuda) Allergy (Verified 08/10/25 16:33) Unknown Bees Allergy (Intermediate, Uncoded 08/08/25 17:11) Anaphylaxis cefuroxime Allergy (Mild, Uncoded 08/08/25 17:11) Itching HPI HPI CHARLIE >6 mos. Melena FUV.: Details: LAST VISIT Vomiting GERD (gastroesophageal reflux disease) Dysphagia Elevated LFTs Left lower quadrant abdominal pain Hematochezia Constipation Abdominal pain Plan Discussed with patient the importance of avoiding dietary triggers. Will send her for upper GI with barium swallow. Patient will have vitamin-D, B12 and folate checked as well as transglutaminase to rule out celiac. Patient will continue taking the omeprazole. Reports semi effective, however due to her being constipated she feels like she is more nauseous now. She can take Motegrity daily. Patient reports urinary retention, urinalysis will be ordered and she will be referred to urologist. Patient has appointment with us in July she can keep that appointment. She is seen by her mixer operator vacuum pan salt next week we will wait for cardiology clearance as next visit we will discuss for patient to go for upper endoscopy as well as colonoscopy. Syncope most likely related to vasovagal stimulation well on the toilet trying to have a bowel movement. Patient can use Proctosol for her hemorrhoids. Patient is agreeable to current plan of care and verbalizes understanding of instructions. She was given the opportunity to ask questions and all questions answered. ? Thank you for allowing me to participate in her care Orders Vitamin D 25-OH (D2 and D3) Today E55.9 Vitamin B12 and Folate Today R19.7 Transglutaminase IgA Today R10.9 FL upper GI w air w Ba Swallow Today K21.9 UA CC w/rflx Micro + Cult Today R30.9 Referrals Urology Referral R33.9 New hydrocortisone 2.5% (Proctosol HC) 1 appl VT BID-QID PRN 30 grams 2RF hemorrhoids K64.9 prucalopride (Motegrity) 2 mg PO DAILY 30 tabs 2RF K59.04 TODAY'S VISIT Patient is here today for follow-up and to discuss going for colonoscopy and upper endoscopy. Patient reports that her acid reflux is better controlled at this time. Patient currently is taking omeprazole. Denies dyspepsia, dysphagia or odynophagia. Occasional acid reflux depending on what she eats. She will be sent for upper endoscopy. Patient reports that she is moving her bowels better with Motegrity, however she still feels like she is not emptying her bowels well. Occasional abdominal bloating and frequent straining at least 2 to 3 times a week. Patient denies melena, hematochezia, unintentional weight loss or ribbon like stools. Patient will be scheduled also for colonoscopy. Denies any issues with anesthesia in the past. No history of sleep apnea. Not on any anticoagulation medication. Patient admits to smoking. [facility] Medical History Chest pain Seizure in childhood Vomiting Tongue swelling Trichomonas infection Cervical cancer Badillo's esophagus Encounter for screening colonoscopy (~2019) Hiatal hernia Surgical History H/O endoscopy (~2019) S/P tonsillectomy H/O: hysterectomy (~1999) Family History Other Adopted Social History Household Members: Significant Other Housing: Apartment Alcohol intake: never Patient Tobacco Use Status: Current everyday Tobacco user Tobacco use type: Cigarette Cigarettes Per Day: 6 Years Smoked: 26 e-Cigarette/Vaping Use: Never Used Second Hand Smoke Exposure: Yes Substance Use Type: Marijuana service: No Current occupational status: unemployed Sexual orientation: Straight/Heterosexual Gender identity: Female Cognitive needs: No Hearing needs: No Vision needs: No Review of Systems Const Denies weight gain and Denies weight loss ENT Reports no additional complaints, Denies dysphagia and Denies odynophagia Card Reports no additional complaints Resp Reports no additional complaints GI Reports abdominal pain, Denies belching, Denies melena, Reports bloating, Denies change in bowel habits, Reports constipation, Denies dysphagia, Denies excessive flatus, Denies dyspepsia, Reports heartburn, Denies diarrhea, Denies loose stools, Reports nausea, Denies odynophagia and Reports vomiting Reports no additional complaints Musc Reports no additional complaints Neuro Reports no additional complaints Psych Reports no additional complaints Endo Reports no additional complaints Physical Exam Vital Signs: Last Vital Signs Pulse 70 08/15/25 15:34 BP 116/62 08/15/25 15:34 Pulse Ox 97 08/15/25 15:34 Oxygen Delivery Method Room Air 08/15/25 15:34 BMI result Body Mass Index 29.6 Const General: healthy appearing and no acute distress Nutritional Appearance: obese Orientation/consciousness: patient oriented x3 Resp Effort & Inspection: normal respiratory effort, able to speak in complete sentences, no tracheal deviation and symmetric chest movement Auscultation: clear to auscultation bilaterally Cardio Rate: regular rate GI Inspection: Yes normal to inspection and No distended Palpation (GI): Soft to palpation, not firm, nontender and No hepatosplenomegaly present Auscultation: normal bowel sounds General: Yes no CVA tenderness Back/Spine/Pelvis Back: no CVA tenderness Skin General skin exam: elasticity normal, turgor normal and dry skin Neuro General: patient oriented x3 Psych Appearance: grossly normal Mental Status: mental status grossly normal Results Reviewed Results Reviewed: Laboratory Tests 09/01/24 11/21/24 02/08/25 12:40 17:25 16:14 AST 137 H 26 ALT 101 H 34 H Alkaline Phosphatase 62 66 Tiss Transglutamin IgA <1.0 Assessment & Plan Assessment & Plan (1) GERD (gastroesophageal reflux disease): Code(s): K21.9 - Gastro-esophageal reflux disease without esophagitis Category: Medical Qualifiers: Esophagitis presence: esophagitis presence not specified Qualified Code(s): K21.9 - Gastro-esophageal reflux disease without esophagitis (2) Dysphagia: Code(s): R13.10 - Dysphagia, unspecified Category: Medical Qualifiers: Dysphagia type: unspecified Qualified Code(s): R13.10 - Dysphagia, unspecified (3) Constipation: Code(s): K59.00 - Constipation, unspecified Category: Medical Qualifiers: Constipation type: slow transit constipation Qualified Code(s): K59.01 - Slow transit constipation (4) Colon cancer screening: Code(s): Z12.11 - Encounter for screening for malignant neoplasm of colon Category: Medical (5) Left lower quadrant abdominal pain: Code(s): R10.32 - Left lower quadrant pain Category: Medical (6) Elevated LFTs: Code(s): R79.89 - Other specified abnormal findings of blood chemistry Category: Medical Plan Patient will continue taking omeprazole daily. Avoid dietary triggers in light infection. Staying upright for minimum 3 hours after meals discussed with patient. Patient will be sent for upper endoscopy, history of Badillo's. Patient will also go for colonoscopy. Notification send to surgical schedulers. No issue was anesthesia in the past. No history of sleep apnea. What to expect before during and after procedure discussed with patient. Stressed importance of good bowel prep. Patient reports that she is not completely emptying her bowels I will add Dulcolax to the routine. Continue Motegrity. Increase fluid intake in the activity to promote bowel motility. I will see patient after the procedure, sooner on as needed basis. Patient is agreeable the current plan of care and verbalizes understanding of instructions. She was given the opportunity to ask questions and all questions answered. Thank you for allowing me to participate in her care Orders: Referrals GI Procedure Notification K21.9 - Gastro-esophageal reflux disease without esophagitis, R13.10 - Dysphagia, unspecified, Z12.11 - Encounter for screening for malignant neoplasm of colon Medications: New bisacodyl (Dulcolax (bisacodyl)) 10 mg (2 x 5 mg) PO BEDTIME 180 tabs 4RF polyethylene glycol 3350 (Miralax) As directed by gastroenterology department at [facility] 238 grams PO ONCE 238 grams 0RF Z12.11 - Encounter for screening for malignant neoplasm of colon Coding Level of Care Code Est Pt Level 4 (61942) Add On Problem Visit Only Diagnoses Gastroesophageal reflux disease, unspecified whether esophagitis present K21.9 Esophagitis presence: esophagitis presence not specified Dysphagia, unspecified type R13.10 Dysphagia type: unspecified Slow transit constipation K59.01 Constipation type: slow transit constipation Colon cancer screening Z12.11 Left lower quadrant abdominal pain R10.32 Elevated LFTs R79.89 Time Spent (min) 35 Comment 25 minutes spent with patient and additional 10 minutes spent reviewing her records
[2025-08-15 15:34] VITALS: BP 116/62; PULSE 70; O2SAT 97; BMI 29.6
--- OUTSIDE RECORDS SUMMARY | 2025-08-15 20:23 | XMS_ITS | Encounter Summary ---
Author Organization [facility] Address [address] [place] [address] Phone Care Team Providers Care Logger Driving Horses Name Role Phone Lilliana Mosqueda MD Primary Care Provider [phone] Lilliana Mosqueda MD Unavailable [phone] Leora Avina MD Unavailable [phone] Bharath Orozco CNP Unavailable [phone] Lilliana Mosqueda MD Unavailable [phone] Deysi Poe RN Unavailable Encounter Details Date Type Department Care Team (Late st Contact Info) Description 10/20/2017 Procedure Pass [facility] Endoscopy Admitting Dept Virtual Department [address] [place] [address] Social History Tobacco Use Types Packs/Day Years [...] on filedocumented in this encounter Care Teams Logger Driving Horses Relationship Specialty Start Date End Date Lilliana Mosqueda MD PCP - General 06/15/17 Lilliana Mosqueda MD [address] [place] [address] Historical LMR Provider 06/19/17 2 Leora Avina MD [address] [place] [address] Historical LMR Provider 06/19/17 09/06/21 Bharath Orozco RIBBON CUTTER [address] [place] [address] Historical LMR Provider 06/19/17 09/06/21 Lilliana Mosqueda MD [address] [place] [address] Insurance Assigned Provider 01/01/18 Deysi Poe, GABRIELLA [address] [place] [address] PHCM Superintendent Distribution 08/20/20 10/04/20 documented as of this encounter Additional Source Comments The information contained in this document represents components of the legal health record. It is not the complete legal health record.[facility]
--- OUTSIDE RECORDS SUMMARY | 2025-08-15 20:23 | XMS_ITS | Encounter Summary ---
Author Organization [facility] Address [address] [place] [address] Phone Care Team Providers Care Dry Talc Racker Name Role Phone Lilliana Mosqueda MD Primary Care Provider [phone] Lilliana Mosqueda MD Unavailable [phone] Leora Avina MD Unavailable [phone] Bharath Orozco CNP Unavailable [phone] Lilliana Mosqueda MD Unavailable [phone] Deysi Poe RN Unavailable Reason for Referral * Outpatient Procedure - Closed Specialty Diagnoses / Procedures Referred By Jv bass Referred To Contact Radiology Diagnoses Early satiety Procedures NM Gastric Emptying Linda Segura PA Phone: tel: fax: Referral ID Status Reason Start Date Expiration Date Visits Re quested Visits Authorized [id number] Closed 11/26/2017 11/26/2018 1 1 Encounter Details Date Type Department Care Team (Late st Contact Info) Description 11/26/2017 Ancillary Orders Virtual Department [address] [place] [address] Linda Segura PA [address] [place] [address] Early satiety Social History Tobacco Use Types [...] the one hour time point. POS - [id number] Narrative 12/02/2017 9:58 AM EDT One millicurie [...] before the one hourtime point. POS - [id number] us Linda LIVE IMG NM ABDOMEN Final Resul t documented in this encounter Visit Diagnoses Diagnosis Early satiety Early satiety documented in this encounter Care Teams Dry Talc Racker Relationship Specialty Start Date End Date Lilliana Mosqueda MD PCP - General 06/15/17 Lilliana Mosqueda MD [address] [place] [address] Historical LMR Provider 06/19/17 2 Leora Avina MD [address] [address] Historical LMR Provider 06/19/17 09/06/21 Bharath Orozco DOORPERSON [address] [address] Historical LMR Provider 06/19/17 09/06/21 Lilliana Mosqueda MD [address] [place] [address] Insurance Assigned Provider 01/01/18 Deysi Poe, GABRIELLA [address] [place] [address] [facility] Train Planner 08/20/20 10/04/20 documented as of this encounter Additional Source Comments The information contained in this document represents components of the legal health record. It is not the complete legal health record.[facility]
--- OUTSIDE RECORDS SUMMARY | 2025-08-15 20:23 | XMS_ITS | Clinical Summary ---
Author Organization [facility] Address [address] [place] [address] Care Team Providers Care Gold Leaf Gilder Name Role Phone David Graves MD Primary Care Provider [phone] Allergies Active Allergy Reactions Criticality Noted Date [...] Inactivated Comments 11/22/2024 11:07 AM Care Teams Gold Leaf Gilder Relationship Specialty Start Date End Date David Graves MD [address] [place] [address] Dr Aponte, CHALO [address] PCP - General Internal Medicine 11/22/24
--- OUTSIDE RECORDS SUMMARY | 2025-08-15 20:23 | XMS_ITS | Encounter Summary ---
Author Organization [facility] Address [address] [place] [address] Phone Care Team Providers Care Wildlife Policy Professional Name Role Phone Lilliana Mosqueda MD Primary Care Provider [phone] Lilliana Mosqueda MD Unavailable [phone] Leora Avina MD Unavailable [phone] Bharath Orozco CNP Unavailable [phone] Lilliana Mosqueda MD Unavailable [phone] Deysi Poe RN Unavailable Encounter Details Date Type Department Care Team (Late st Contact Info) Description 02/11/2018 Procedure Pass [facility], Ct Scan - [address] [address] Social History Tobacco Use Types Packs/Day Years [...] on filedocumented in this encounter Care Teams Wildlife Policy Professional Relationship Specialty Start Date End Date Lilliana Mosqueda MD PCP - General 06/15/17 Lilliana Mosqueda MD [address] [place] [address] Historical LMR Provider 06/19/17 2 Leora Avina MD [address] [place] [address] Historical LMR Provider 06/19/17 09/06/21 Bharath Orozco CNP [address] [place] [address] Historical LMR Provider 06/19/17 09/06/21 Lilliana Mosqueda MD [address] [place] [phone] Insurance Assigned Provider 01/01/18 Deysi Poe, GABRIELLA [address] [place] [address] PHCM Torpedoman'S Mate 08/20/20 10/04/20 documented as of this encounter Additional Source Comments The information contained in this document represents components of the legal health record. It is not the complete legal health record.[facility]
--- OUTSIDE RECORDS SUMMARY | 2025-08-15 20:23 | XMS_ITS | Encounter Summary ---
Author Organization [facility] Address [address] [place] [address] Phone Care Team Providers Care Fish Packer Name Role Phone Lilliana Mosqueda MD Primary Care Provider [phone] Lilliana Mosqueda MD Unavailable [phone] Leora Avina MD Unavailable [phone] Bharath Orozco CNP Unavailable [phone] Lilliana Mosqueda MD Unavailable [phone] Deysi Poe RN Unavailable Encounter Details Date Type Department Care Team (Late st Contact Info) Description 08/10/2018 Procedure Pass [facility] Endoscopy Admitting Dept Virtual Department [address] [place] [address] Social History Tobacco Use Types Packs/Day Years [...] on filedocumented in this encounter Care Teams Fish Packer Relationship Specialty Start Date End Date Lilliana Mosqueda MD PCP - General 06/15/17 Lilliana Mosqueda MD [address] [place] [address] Historical LMR Provider 06/19/17 2 Leora Avina MD [address] [place] [address] Historical LMR Provider 06/19/17 09/06/21 Bharath Orozco CNP [address] [place] [address] Historical LMR Provider 06/19/17 09/06/21 Lilliana Mosqueda MD [address] [place] [address] Insurance Assigned Provider 01/01/18 Deysi Poe, GABRIELLA [address] [place] [address] PHCM Drill Grinder 08/20/20 10/04/20 documented as of this encounter Additional Source Comments The information contained in this document represents components of the legal health record. It is not the complete legal health record.[facility]
--- OUTSIDE RECORDS SUMMARY | 2025-08-15 20:23 | XMS_ITS | Encounter Summary ---
Author Organization [facility] Address [address] [place] [address] Phone Care Team Providers Care Herpetologist Name Role Phone Lilliana Mosqueda MD Primary Care Provider [phone] Lilliana Mosqueda MD Unavailable [phone] Leora Avina MD Unavailable [phone] Bharath Orozco CNP Unavailable [phone] Lilliana Mosqueda MD Unavailable Deysi Poe RN Unavailable Encounter Details Date Type Department Care Team (Late st Contact Info) Description 02/09/2018 Ancillary Orders Virtual Department [address] [place] [address] Jose Bland, [facility] [address] [place] [phone] [email or web address] Abdominal pain, unspecified abdominal location Social [...] location documented in this encounter Care Teams Herpetologist Relationship Specialty Start Date End Date Lillinaa Mosqueda MD PCP - General 06/15/17 Lilliana Mosqueda MD [address] [place] [address] Historical LMR Provider 06/19/17 2 Leora Avina MD [address] [place] [address] Historical LMR Provider 06/19/17 09/06/21 Bharath Orozco CNP [address] [place] [address] Historical LMR Provider 06/19/17 09/06/21 Lilliana Mosqueda MD [address] [place] [address] Insurance Assigned Provider 01/01/18 Deysi Poe, RN [address] [place] [address] PHCM Dry [employer] Racker 08/20/20 10/04/20 documented as of this encounter Additional Source Comments The information contained in this document represents components of the legal health record. It is not the complete legal health record.[facility]
--- OUTSIDE RECORDS SUMMARY | 2025-08-15 20:23 | XMS_ITS | Clinical Summary ---
Author Organization [facility] ity Address [address] [place] [address] Care Team Providers Care Medical Administrative Name Role Phone Lilliana Mosqueda MD Primary [...] to complete this topic Care Teams Medical Administrative Relationship Specialty Start Date End Date Lilliana Mosqueda MD [address] [place] [address] PCP - General Family Medicine 05/31/19
--- OUTSIDE RECORDS SUMMARY | 2025-08-15 20:24 | XMS_ITS | Clinical Summary ---
Author Organization [facility] Address [address] [place] [address] Phone Care Team Providers Care Washcloth Folder Name Role Phone Lilliana Mosqueda MD Primary Care Provider [phone] Allergies Active Allergy Reactions Criticality Noted Date [...] 40 Admit Type: Outpatient Gender: Female Room: [place] [address] Referring MD: Lilliana Mosqueda MD Exam Type: [...] 1:11 PM Procedure Code(s): --- Professional --- 67236, Colonoscopy, flexible; with biopsy, single or multiple --- Technical --- 14808, Colonoscopy, flexible; with biopsy, single or multiple Diagnosis Code(s): --- Professional --- K64.8, Other hemorrhoids K52.9, Noninfective gastroenteritis and colitis, unspecified --- Technical --- K64.8, Other hemorrhoids K52.9, Noninfective gastroenteritis and colitis, unspecified CPT copyright 2016 [employer]. All rights reserved. The codes documented in this report are preliminary and upon surgical coder reviewmay be revised to meet current compliance requirements. [address] [place] [address] Lilliana Mosqueda MD GI PROCEDURE ORDERABLES Final Result from Last 3 Months or Most Recently Relevant to Health Maintenance Insurance ACO [facility] [place] [address] [place] [address] [address] [place] [address] [place] [address] [place] [address] [place] [id number] Care Teams Washcloth Folder Relationship Specialty Start Date End Date Lilliana Mosqueda MD [email or web address] PCP - General 06/15/17 Additional Source Comments The information contained in this document represents components of the legal health record. It is not the complete legal health record.[facility]
--- OUTSIDE RECORDS SUMMARY | 2025-08-15 20:24 | XMS_ITS | Encounter Summary ---
Author Organization [facility] Address [address] [place] [address] Phone Care Team Providers Care User Experience Researcher Name Role Phone Lilliana Mosqueda MD Primary Care Provider [phone] Lilliana Mosqueda MD Unavailable [phone] Leora Avina MD Unavailable [phone] Bharath Orozco CNP Unavailable [phone] Lilliana Mosqueda MD Unavailable [phone] Deysi Poe RN Unavailable Encounter Details Date Type Department Care Team (Late st Contact Info) Description 10/11/2017 Procedure [facility], Ct Scan - [address] [address] Social History Tobacco Use Types Packs/Day Years [...] on filedocumented in this encounter Care Teams User Experience Researcher Relationship Specialty Start Date End Date Lilliana Mosqueda MD PCP - General 06/15/17 Lilliana Mosqueda MD [address] [place] [address] Historical LMR Provider 06/19/17 2 Leora Avina MD [address] [place] [address] Historical LMR Provider 06/19/17 09/06/21 Bharath Orozco CNP [address] [place] [address] Historical LMR Provider 06/19/17 09/06/21 Lilliana Mosqueda MD [address] [place] [address] Insurance Assigned Provider 01/01/18 Deysi Poe, GABRIELLA [address] [place] [address] PHCM Baby Sitter 08/20/20 10/04/20 documented as of this encounter Additional Source Comments The information contained in this document represents components of the legal health record. It is not the complete legal health record.[facility]
--- OUTSIDE RECORDS SUMMARY | 2025-08-15 20:24 | XMS_ITS | Data Portability ---
Author Organization [facility], [address] Address [address] [place] [address] Assessment No assessment recorded. Plan of Treatment Reminders Order Date Submit Date Provider Last Modified By Organization Details Last Modified Time Details Appointments None recorded. Lab None recorded. Referral emergency medicine referral - Significant left hip pain - cannot ambulate - history of fracture as a child. Coming by EMS. 2022 023 [email or web address] 26 [facility] [address] [place] [address], [address], 3 07:26:15 Procedures None recorded. Surgeries None [...] pain tracking down the femur. 2022 023 [employer] [facility], [address] [facility], [place], [address], 3 19:26:28 Medication Orders None recorded. Patient TargetsNo targets recorded. Patient Instructions Encounter Date Encounter Id Patient Instructions Last Modified By Organization Details Last Modified Time 10/01/2022 [id number] Based on your ex am and presentation [...] unila teral No observ ation record ed. [facility] [address] [facility] [place], [address], 10/01/2022 20:31:21 Result Notes None recorded. Problems Name Problem SNOMED Code Status Onset Date Resolution Date Notes Provider Name and Address Organization Details Recorded Time Attention deficit hyperactivity disorder 947775986 Active 2022 Leonora holley, [place] - [facility] 3 15:54:19 Bipolar disorder 50611981 Active 2022 [facility] [...] Name and Address Organization Details Recorded Time 688284 Tylenol medicatio n Not available Not available Not available 10/01/2022 3 RxNorm Leonora holley, [place] - [facility] 15:51:44 556962 ibuprofen medicatio n Not available Not available Not available 10/01/2022 5640 RxNorm Leonora holley, [place] - [facility] 3 15:52:00 988879 Latuda medicatio n Not available Not available Not available 10/01/2022 81662 32 RxNorm Leonora holley, [place] - [facility] 3 15:52:05 528396 aspirin medicatio n Not available Not available [...] /min 97.7 [degF] 165.1 cm 25.8 kg/m2 28839.8 2 g 109/76 mm[Hg] Leonora Hu PA - [facility] 3 16:28:23 Date Recorded Body height Provider Name an d Address Organization Details Last Updated DateTime 11/05/2022 165.1 cm [facility] CASTILLO [address] [place], [place] [address], [address], [place] - [facility] 12/01/2022 20:03:21 Social [...] ICD10 Code Diagnosis IMO Codes Diagnosis Note [id number] [facility] [address] [address] [place] [address] 10/01/2022 14:29:12 10/01/2022 17:16:29 Pain of left hip joint 7818493728 85098 M25.552 S/P fall out of bed x 1 week ago. [id number] [facility] [address] [address] [place] [address] 11/05/2022 08:18:11 12/01/2022 20:03:56 Left without being seen [id number] 9102 Z53.21 Health Concerns Section Related Observation LastModified by Organization Detai ls LastModified Time None Recorded Concern Status LastModified by Organization Details LastModified Time None Recorded Advance Directives Directive None Recorded Payers Insurance Date Sequence Insurance Name Policy Number Policy Rios Covered Member ID Rios Member ID Guarantor Name 11/02/2022 2 [place] [facility] Dominique Almonte [id number] Dominique Almonte 11/05/2022 1 [place] PRIOR TO 2022 - [facility] (MEDICAID) Dominique Almonte [id number] Dominique Almonte Notes Date Note Type Note [...] [facility] CASTILLO [address], [place], [address], [place] - [facility] 10/01/2022 17:47:49 OBGyn Episode No OBEpisode recorded.
== END 2025-08-15 16:05 | disposition home or self-care (01) ==
LOC: HO.HGI 15:27
PROVIDERS: PCP Internal Medicine; Visit Provider Nurse Practitioner Family
DX: K21.9 Gastro-esophageal reflux disease without esophagitis (principal); R13.10 Dysphagia, unspecified; K59.01 Slow transit constipation; R10.32 Left lower quadrant pain; R74.01 Elevation of levels of liver transaminase levels
CPT/HCPCS: 99214

== ENCOUNTER → 2025-08-15 15:25 | Outpatient (BNVA) | payer OTHER, SELFPAY | PROVIDERS: PCP Internal Medicine; Visit Provider Nurse Practitioner Family | DX: K21.9 Gastro-esophageal reflux disease without esophagitis (principal); R13.10 Dysphagia, unspecified; K59.01 Slow transit constipation; R10.32 Left lower quadrant pain; R79.89 Other specified abnormal findings of blood chemistry | CPT/HCPCS: 99212 ==